=== PATIENT | female | born 1940 | race Caucasian/White ===

== ENCOUNTER → 2016-05-27 | Outpatient (CLI) | payer OTHER ==
[~2016-05-27] MED LIST: ADVIN25050 INH; ALBU0.633 NEB; ALBU1NEB10 INH; ALBUAER19 INH; ALPR-412 PO; AZIT250T PO; B-CO1CAP17 PO; CHOL2000 PO; CRAN1TAB; CYAN100073; DILT180C70 PO; FERR1TAB13 PO; GLC/500 PO; MULT-506 PO; NIAC1TAB3 PO; OMEG10007 PO; OXGN; PRED-301 PO; RISE150T PO; SPRIN/30 INH; TIOTCAP INH; VITA10004; VITA100C4 PO; VNTHFA/IN INH
[2016-05-27 12:11] LABS: BASO % 0.2 %; BASO ABS # 0.02 K/uL (0-0.2); COMPLETE YES; HEMATOCRIT 38.7 % (37-47); IG% 0.3 %; LYMPH % 25.3 %; LYMPH ABS # 2.38 K/uL (1.2-3.4); MEAN CELL VOLUME 92.1 fL (80-100); MEAN CORPUSCULAR HGB CONC 32.6 g/dl (32-36); MEAN PLATELET VOLUME 9.6 fL (7.4-10.4); MONO % 10.1 %; NEUT % 62.1 %; PLATELET COUNT 341 K/uL (130-400)
[2016-05-27 12:28] LABS: ALT/SGPT 20 U/L (12-78); BLOOD UREA NITROGEN 11 mg/dl (7-18); BUN/CREATININE RATIO 14.8 (10-20); CALCIUM 8.8 mg/dl (8.5-10.1); CARBON DIOXIDE 34 mmol/L (21-32); CHLORIDE 98 mmol/L (98-107); CHOLESTEROL 186 mg/dl (0-200); CREATININE 0.73 mg/dl (0.60-1.20); GLUCOSE 151 mg/dl (70-99); POTASSIUM 3.8 mmol/L (3.5-5.1); SODIUM 140 mmol/L (136-145); TRIGLYCERIDES 171 mg/dl (0-150); VERY LOW DENSITY LIPOPROT CALC 34 mg/dl
[2016-05-27 12:39] LABS: ALB/GLOB RATIO 0.7 (0.9-2); ALKALINE PHOSPHATASE 113 U/L (45-117); AST/SGOT 17 U/L (15-37); CHOLESTEROL/HDL RATIO 3.6; HDL CHOLESTEROL 52 mg/dl; LDL CHOLESTEROL CALCULATED 100 mg/dl
[2016-05-27 13:16] LABS: ESTIMATED AVERAGE GLUCOSE 134 mg/dl; HA1C FLAG Normal (Normal)
== END | disposition home or self-care (01) ==
LOC: C.LABBFT 08:41
PROVIDERS: ATTEND Internal Medicine
DX: E11.9 Type 2 diabetes mellitus without complications (principal); J44.9 Chronic obstructive pulmonary disease, unspecified

== ENCOUNTER 2016-12-22 09:38 | Inpatient (IN) | payer OTHER ==
[~2016-12-22] VITALS: Ht 162.6 cm; Wt 78.1 kg
[2016-12-22] VITALS (11 sets, daily range): BP systolic 147–160; BP diastolic 82–92; PULSE 68–132; TEMP 36.8–37; O2SAT 82–96; BMI 27.9
[~2016-12-22 09:38] MED LIST changes: -ALBU0.633 NEB; -AZIT250T PO; -B-CO1CAP17 PO; -CHOL2000 PO; -CRAN1TAB; -CYAN100073; -FERR1TAB13 PO; -OMEG10007 PO; -SPRIN/30 INH; -VITA10004; -VNTHFA/IN INH
[2016-12-22] MEDS ORDERED: SODIUM CHLORIDE 0.9% 1000ML 1,000 ML IV STA (10:04)
[2016-12-22] MEDS ORDERED: SODIUM CHLORIDE 0.9% 1000ML 1,000 ML IV ONE (10:04)
[2016-12-22] MEDS ORDERED: METHYLPREDNISOLONE 125 MG VIAL IV STA (10:07)
[2016-12-22] MEDS ORDERED: ALBUT/IPRATROP 3MG/0.5MG NEB 3 ML VIAL INH ONE (10:15)
[2016-12-22] MEDS ORDERED: OPTIRAY 320 IV PRN (10:15)
[2016-12-22 10:22] LABS: ISTAT CREATININE 0.8 mg/dl (0.6-1.3); ISTAT HEMOGLOBIN 14.6 g/dl (12.0-16.0); ISTAT IONIZED CALCIUM 1.13 mmol/l (1.12-1.32)
[2016-12-22 10:31] LABS: BASO % 0.3 %; BASO ABS # 0.04 K/uL (0-0.2); COMPLETE YES; EOS % 0.5 %; HEMATOCRIT 43.3 % (37-47); IG% 1.4 %; LYMPH % 13.8 %; LYMPH ABS # 2.03 K/uL (1.2-3.4); MEAN CELL VOLUME 94.5 fL (80-100); MEAN CORPUSCULAR HEMOGLOBIN 27.9 pg (25-34); MEAN CORPUSCULAR HGB CONC 29.6 g/dl (32-36); MEAN PLATELET VOLUME 9.2 fL (7.4-10.4); MONO % 6.6 %; NEUT % 77.4 %; PLATELET COUNT 391 K/uL (130-400); RED BLOOD COUNT 4.58 M/uL (4.2-5.4); WHITE BLOOD COUNT 14.73 K/uL (4.8-10.8)
[2016-12-22] MEDS ORDERED: VITA10004 (10:35)
[2016-12-22] MEDS ORDERED: B-CO1CAP17 PO (10:35)
[2016-12-22] MEDS ORDERED: ALBU0.633 NEB (10:35)
[2016-12-22] MEDS ORDERED: SPRIN/30 INH (10:35)
[2016-12-22] MEDS ORDERED: OMEG10007 PO (10:35)
[2016-12-22] MEDS ORDERED: VNTHFA/IN INH (10:35)
[2016-12-22] MEDS ORDERED: AZIT250T PO (10:35)
[2016-12-22] MEDS ORDERED: CHOL2000 PO (10:35)
[2016-12-22] MEDS ORDERED: CYAN100073 (10:35)
[2016-12-22] MEDS ORDERED: FERR1TAB13 PO (10:35)
[2016-12-22] MEDS ORDERED: CRAN1TAB (10:35)
[2016-12-22 10:39] LABS: PARTIAL THROMBOPLASTIN RATIO 0.9
[2016-12-22 10:55] LABS: ALT/SGPT 30 U/L (12-78); BLOOD UREA NITROGEN 10 mg/dl (7-18); BUN/CREATININE RATIO 9.6 (10-20); CALCIUM 9.7 mg/dl (8.5-10.1); CARBON DIOXIDE 35 mmol/L (21-32); CHLORIDE 86 mmol/L (98-107); GLUCOSE 278 mg/dl (70-99); POTASSIUM 3.6 mmol/L (3.5-5.1); SODIUM 133 mmol/L (136-145)
--- NOTE | 2016-12-22 10:58 | DIAGNOSTIC IMAGING REPORT ---
CHEST ONE VIEW PORTABLE CLINICAL HISTORY: Chest pain. Shortness of breath. COMPARISON STUDY: Chest radiograph January 09, 2016. FINDINGS: Interstitial thickening is unchanged. Mild elevation of the left hemidiaphragm is unchanged. No pneumothorax is present. Right lower lung opacities favor atelectasis. Cardiomediastinal silhouette is stable. Left basilar opacity is noted. IMPRESSION: 1. Left basilar opacity which could reflect pleural fluid, atelectasis or consolidation. 2. Interstitial thickening which is likely chronic. 3. Right lower lung opacities which favor atelectasis. Electronically signed by: Cole Buckner M.D. 12/22/2016 10:57 AM Dictated Date/Time: 12/22/2016 10:54 AM
[2016-12-22 11:00] LABS: ALKALINE PHOSPHATASE 128 U/L (45-117); AST/SGOT 37 U/L (15-37); CKMB/CK RATIO 4.3 (0-3.0)
--- NOTE | 2016-12-22 11:41 | DIAGNOSTIC IMAGING REPORT ---
HEAD WITHOUT CONTRAST (CT) CLINICAL HISTORY: 76 years-old Female presenting with fall, trauma. TECHNIQUE: Multidetector CT imaging of the head was performed without the use of intravenous contrast. IV contrast: None. A dose lowering technique was used consistent with the principles of ALARA (as low as reasonably achievable). COMPARISON: None. CT DOSE (mGy.cm): The estimated cumulative dose is 2862.[address] cervical spine, CT chest, CT abdomen and pelvis. FINDINGS: Gang Investigator topogram: Unremarkable. Ventricles and sulci normal in size. Brain parenchyma normal in appearance with preserved youngblood-white differentiation. No mass effect or midline shift. No hemorrhage or acute territorial infarct. No extra-axial fluid collection. Paranasal sinuses and mastoid air cells clear. Calvarium intact. Subgaleal hematoma in the right frontal region and minimal subcutaneous hematoma over the right parietal region. IMPRESSION: 1. No acute intracranial pathology. 2. Subgaleal hematoma in the right frontal region and minimal subcutaneous hematoma over the right parietal region. Electronically signed by: Fam Stauffer M.D. 12/22/2016 11:40 AM Dictated Date/Time: 12/22/2016 11:38 AM
--- NOTE | 2016-12-22 11:45 | DIAGNOSTIC IMAGING REPORT ---
CERVICAL SPINE CT CT DOSE: 2862.34 mGy.cm HISTORY: Neck pain. Fall. eval for trauma TECHNIQUE: Multiaxial CT images of the cervical spine were performed and reformatted in the sagittal and coronal plane without the use of contrast. A dose lowering technique was utilized adhering to the principles of ALARA. COMPARISON: None. FINDINGS: No fractures. No subluxation. Prevertebral soft tissues and the C1-C2 interval are intact. No pneumothorax. Moderate disc space narrowing and endplate osteophytes at C4-C5, C5-C6, and C6-C7. Mild disc space narrowing at C3-C4. Straightening of the cervical spine IMPRESSION: No fractures within the cervical spine. Electronically signed by: Blair Allen M.D. 12/22/2016 11:43 AM Dictated Date/Time: 12/22/2016 11:36 AM
--- NOTE | 2016-12-22 11:51 | DIAGNOSTIC IMAGING REPORT ---
(CHEST FOR PE) ANGIO WITH CLINICAL HISTORY: 76 years-old Female presenting with hypoxia, fall, concern for pulmonary embolus. TECHNIQUE: Multidetector CT angiography of the chest was performed after administration of intravenous contrast. 3-D volumetric and/or maximum intensity projection (MIP) images were subsequently reconstructed for review. IV contrast: 93 mL of Optiray 320. A dose lowering technique was used consistent with the principles of ALARA (as low as reasonably achievable). COMPARISON: 06/20/2013. CT DOSE (mGy.cm): The estimated cumulative dose is [address] cervical spine, CT abdomen and pelvis, and CT head. FINDINGS: Instrument Assembly Supervisor topogram: Unremarkable. Pulmonary vasculature: The study is adequate for assessment of the pulmonary vascular tree. No filling defect within the pulmonary arteries to suggest embolus. Main pulmonary artery is mildly enlarged measuring 3.1 cm in transverse dimension. No flattening of the interventricular septum. No intracardiac intracardiac filling defect. No reflux of contrast into the hepatic veins. Remaining chest: On soft tissue windows, normal thyroid and thoracic inlet. Scattered subcentimeter mediastinal and right hilar lymph nodes. Atherosclerosis of the aorta. Mild coronary artery and aortic valve calcification. Normal heart size. Trace left pleural effusion. No pericardial effusion. Calcified pleural plaques noted on the right. Macronodular appearance of the liver suggesting cirrhosis. Hepatic steatosis suggested. On lung windows, extensive emphysematous changes, asymmetrically more severe in the left lung, similar to prior exam. Complete collapse of the left lower lobe, new from prior. Narrowing of the left lower lobe bronchus without jeanette evidence of an obstructing mass. Paramediastinal dependent consolidation and volume loss in the right lower lobe, with subjacent ossified pleural plaque. Associated multifocal plugging of subsegmental bronchi in the basal segments of the right lower lobe. Extensive layering debris noted in the distal trachea and bilateral mainstem bronchi. Bronchial wall thickening noted. On bone windows, normal osseous structures. IMPRESSION: 1. No evidence of pulmonary embolus. 2. Multifocal plugging of subsegmental bronchi in the right lower lobe with extensive layering debris in the distal trachea and bilateral mainstem bronchi. This is worrisome for aspiration. 3. Left lower lobe collapse without jeanette evidence of an obstructing mass at the level of the left lower lobe bronchus. Further evaluation with bronchoscopy could be considered. 4. Prominent subcentimeter mediastinal and right hilar lymph nodes. These may be reactive. Attention on follow-up. 5. Mediastinal dependent consolidation in the right lower lobe with subjacent calcified pleural plaques. This could suggest atelectasis associated with prior asbestos exposure. 6. Extensive emphysematous changes, asymmetrically more severe in the left lung, similar to prior exam. Electronically signed by: Fam Stauffer M.D. 12/22/2016 11:50 AM Dictated Date/Time: 12/22/2016 11:40 AM
--- NOTE | 2016-12-22 11:57 | DIAGNOSTIC IMAGING REPORT ---
L ANKLE 2 VIEWS CLINICAL HISTORY: LT ANKLE PAIN, FALL COMPARISON STUDY: None. FINDINGS: Trimalleolar fracture/dislocation of the left ankle. This demonstrates up to 1.3 cm of lateral displacement. Diffuse soft tissue swelling. IMPRESSION: Left ankle trimalleolar fracture/dislocation. Electronically signed by: Blair Allen M.D. 12/22/2016 11:56 AM Dictated Date/Time: 12/22/2016 11:55 AM
--- NOTE | 2016-12-22 11:58 | DIAGNOSTIC IMAGING REPORT ---
CT OF THE ABDOMEN AND PELVIS WITH CONTRAST CLINICAL HISTORY: Fall. COMPARISON STUDY: Abdominal ultrasound February 18, 2009. TECHNIQUE: Following IV administration of 93 mL of Optiray-320, axial images of the abdomen and pelvis were obtained from the lung bases to the proximal femurs. Images were reviewed in the axial, sagittal, and coronal planes. IV contrast was administered without complication. A dose lowering technique was utilized adhering to the principles of ALARA. FINDINGS: The chest will be reported separately. Visualized portions of the lower chest demonstrate calcified pleural plaques within the right hemithorax as well as extensive left lower lobe airspace opacity with volume loss and a small left pleural effusion. There is no evidence of traumatic injury to the liver, spleen, adrenal glands, kidneys or pancreas. The liver is cirrhotic. Sensitivity for detection of hypervascular lesions is diminished on this exam but no hepatic lesions are identified on this study. There is a 4 mm right renal calculus. There are no ureteral calculi. A 1.8 cm right renal cyst is noted. Note is made of a 3.4 cm infrarenal abdominal aortic aneurysm without evidence for rupture. There is no lymphadenopathy. Caliber and wall thickness of small and large bowel are normal. A 3.2 cm left adnexal cystic lesion is noted which has a peripheral/dependent calcification. No acute lumbar spine or pelvic fractures identified. There is no free fluid. Calcified upper abdominal lymph nodes are noted. The main, left and right portal veins are patent. IMPRESSION: 1. No acute traumatic findings within the abdomen or pelvis. 2. Cirrhosis. 3. 3.4 cm infrarenal abdominal aortic aneurysm without evidence of rupture. 4. Extensive left lower lobe airspace opacity with volume loss and a small left pleural effusion. Numerous air bronchograms. The findings are better depicted on the chest CT. 5. 3.1 cm left adnexal cystic lesion. This likely reflects an ovarian cyst but is abnormal in a postmenopausal patient and a follow-up nonemergent pelvic ultrasound is recommended to evaluate for complexity. Electronically signed by: Cole Buckner M.D. 12/22/2016 11:57 AM Dictated Date/Time: 12/22/2016 11:48 AM
[2016-12-22] MEDS ORDERED: ALBUTEROL 0.083% NEBU SOLN 3 ML VIAL INH PRN (12:15)
[2016-12-22] MEDS ORDERED: ACETAMINOPHEN 325 MG TAB PO PRN (12:15)
[2016-12-22] MEDS ORDERED: ALUMINUM/MAGNESIUM/SIMETH (MAALOX MAX) 30 ML UDC PO PRN (12:15)
[2016-12-22] MEDS ORDERED: ONDANSETRON INJ 2 MG/ML 2 ML VIAL IV PRN (12:15)
[2016-12-22] MEDS ORDERED: MoRPHine SULFATE 2 MG/ML CARP IV PRN (12:15)
[2016-12-22] MEDS ORDERED: POLYETHYLENE (MIRALAX) 17 GM PACK PO PRN (12:15)
[2016-12-22] MEDS ORDERED: ALPRAZOLAM 0.25 MG TAB PO PRN (12:15)
[2016-12-22] MEDS ORDERED: MAGNESIUM HYDROXIDE SUSP 30 ML UDC PO PRN (12:15)
[2016-12-22] MEDS ORDERED: PIPERACILLIN/TAZOBACTAM 4.5 GM/100ML D5W IV STA (12:34)
--- NOTE | 2016-12-22 12:42 | History and Physical ---
History & Physical Date & Time of Service: Dec 22, 2016 at 12:20 Chief Complaint: Sob,Also Fell Primary Care Physician: Matias Ram M.D. History of Present Illness Source: patient, family 76 y/o F Hx advanced COPD, HTN, HPL, DM, osteoporosis. Pt has developed progressive SOB and weakness over the past 2-3 days. She describes multiple falls and had fallen and hit her head in the bathtub the previous day. She was in bed for the majority of the AM and her granddaughter insisted that she attend the hospital. On route to her car, she fell on her L side and twisted her L ankle. She was markedly hypoxic on arrival to the ER, requiring an NRB to maintain an adequate saturation. A CT chest was obtained which was read as concerning for a RLL pneumonia. Imaging of her ankle revealed a displaced L malleolar fracture. She denies a fever, CP, N/V or dysuria. She was placed on Zithromax and prednisone a few days prior by her PCP. This did not lead to any improvement. Past Medical/Surgical History Medical Problems: 1) HTN 2) HPL 3) DM 2 4) Osteoporosis 5) Advanced COPD 6) YIMI Family History Noncontributory to current complaint Social History Quit smoking several years ago - does not drink - lives with Smoking Status: Former Smoker Marital Status: Housing status: lives with family Occupational Status: retired Immunizations History of Influenza Vaccine: Unknown History of Tetanus Vaccine?: Unknown History of Pneumococcal: Unknown History of Hepatitis B Vaccine: Unknown Allergies Coded Allergies: No Known Allergies (Unverified , 12/22/16) Home Medications Scheduled Albuterol Hfa (Ventolin Hfa), 2-4 PUFFS INH Q6H Albuterol Sulfate (Albuterol Sulfate), 1 VIAL NEB QID Azithromycin (Zithromax), 250 MG PO DAILY Cholecalciferol (Vitamin D3), 1 CAP PO DAILY Diltiazem Hcl (Diltiazem Hcl), 1 CAP PO QAM Ferrous Sulfate (Kp Ferrous Sulfate), 1 TAB PO DAILY Fluticasone Prop/Salmeterol (Advair Diskus 250-50 Mcg/Dose), 1 PUFF INH Q12 Home O2 Therapy (Oxygen), 1 LITER NA DAILY Metformin Hcl (Glucophage), 500 MG PO BID Multivitamin (Multivitamin), 1 TAB PO QAM Niacinamide (Niacin), 1,000 MG PO QAM Prednisone (Prednisone), 5 MG PO QAM Risedronate Sodium (Actonel), 1 TAB PO MONTHLY Tiotropium [place] (Spiriva Handihaler), 1 CAP INH DAILY Vitamin B Cmplx/Vitc/Folic Ac (Nephrocaps), 1 CAP PO DAILY Scheduled PRN Alprazolam (Alprazolam), 0.25 MG PO DAILY PRN for Anxiety Miscellaneous Medications Cranberry (Vaccinium Macrocarp (Cranberry) Cyanocobalamin (B12) Fish Oil ([place]-3), 1 CAP PO Vitamin E (Vitamin E) Review of Systems Constitutional: + weakness, + fatigue, No fever, No chills, No sweats Eyes: No worsening of vision, No eye pain ENT: No hearing loss, No unusual epistaxis, No nasal symptoms Respiratory: + cough, + sputum, + wheezing, + shortness of breath, + dyspnea on exertion, + dyspnea at rest Cardiovascular: No chest pain, No orthopnea, No PND Abdomen: No pain, No nausea, No vomiting Musculoskeletal: + joint pain (L ankle pain) Genitourinary - Female: No dysuria, No urinary frequency, No urinary urgency Neurologic: + weakness, + balance problems, No memory loss, No paralysis Psychiatric: No depression symptoms Endocrine: No fatigue Hematologic / Lymphatic: No abnormal bleeding/bruising Integumentary: No rash Allergic / Immunologic: No environmental allergies Physical Exam Vital Signs Date Time Temp Pulse Resp B/P (MAP) Pulse Ox O2 Delivery O2 Flow Rate FiO2 12/22/16 10:31 96 Nasal Cannula 5.0 12/22/16 10:30 119 27 92 Nasal Cannula 5.0 12/22/16 10:10 61 Nasal Cannula 2.0 12/22/16 10:00 140 12/22/16 09:43 36.8 169 24 109/68 61 Nasal Cannula 2.0 General Appearance: + pertinent finding (Elderly female - labored breathing with lip pursing) Head: normocephalic, + pertinent finding (Bruising at R top of forehead) Eyes: normal inspection ENT: normal ENT inspection, hearing grossly normal, TMs normal Neck: supple, no JVD Respiratory/Chest: chest non-tender, + pertinent finding (Poor b/l air movement - crackles at bases - R>L) Cardiovascular: regular rate, rhythm, no edema, no gallop, + systolic murmur Abdomen/GI: normal bowel sounds, non tender, soft Back: normal inspection, no CVA tenderness Extremities/Musculoskelatal: + pertinent finding (Bruising on extremities - marked bruising and inflammation LLE/ankle) Neurologic/Psych: gas reverser II-XII nml as tested, no motor/sensory deficits, alert, normal mood/affect, normal reflexes, oriented x 3 Skin: normal color, warm/dry, + pertinent finding (Several areas of bruising - no rashes) Diagnostics Laboratory Results Results Past 24 Hours Test 12/22/16 10:00 12/22/16 10:04 12/22/16 10:09 12/22/16 10:12 Range/Units White Blood Count 14.73 4.8-10.8 K/uL Red Blood Count 4.58 4.2-5.4 M/uL Hemoglobin 12.8 12.0-16.0 g/dL Hematocrit 43.3 37-47 % Mean Corpuscular Volume 94.5 80-100 fL Mean Corpuscular Hemoglobin 27.9 25-34 pg Mean Corpuscular Hemoglobin Concent 29.6 32-36 g/dl Platelet Count 391 130-400 K/uL Mean Platelet Volume 9.2 7.4-10.4 fL Neutrophils (%) (Auto) 77.4 % Lymphocytes (%) (Auto) 13.8 % Monocytes (%) (Auto) 6.6 % Eosinophils (%) (Auto) 0.5 % Basophils (%) (Auto) 0.3 % Neutrophils # (Auto) 11.41 1.4-6.5 K/uL Lymphocytes # (Auto) 2.03 1.2-3.4 K/uL Monocytes # (Auto) 0.97 0.11-0.59 K/uL Eosinophils # (Auto) 0.08 0-0.5 K/uL Basophils # (Auto) 0.04 0-0.2 K/uL RDW Standard Deviation 45.9 36.4-46.3 fL RDW Coefficient of Variation 13.3 11.5-14.5 % Immature Granulocyte % (Auto) 1.4 % Immature Granulocyte # (Auto) 0.20 0.00-0.02 K/uL Prothrombin Time 11.0 9.0-12.0 SECONDS Prothromb Time International Ratio 1.0 0.9-1.1 Activated Partial Thromboplast Time 22.6 21.0-31.0 SECONDS Partial Thromboplastin Ratio 0.9 Sodium Level 133 136-145 mmol/L Potassium Level 3.6 3.5-5.1 mmol/L Chloride Level 86 98-107 mmol/L Carbon Dioxide Level 35 21-32 mmol/L Anion Gap 12.0 20.0 16-25 mmol/L Blood Urea Nitrogen 10 7-18 mg/dl Creatinine 1.00 0.60-1.20 mg/dl Estimated GFR () 63.4 Estimated GFR (Non- 54.7 BUN/Creatinine Ratio 9.6 10-20 Random Glucose 278 70-99 mg/dl Calcium Level 9.7 8.5-10.1 mg/dl Total Bilirubin 0.8 0.2-1 mg/dl Direct Bilirubin 0.3 0-0.2 mg/dl Aspartate Amino Transf (AST/SGOT) 37 15-37 U/L Alanine Aminotransferase (ALT/SGPT) 30 12-78 U/L Alkaline Phosphatase 128 45-117 U/L Total Creatine Kinase 49 26-192 U/L Creatine Kinase MB 2.1 0.5-3.6 ng/ml Creatine Kinase MB Ratio 4.3 0-3.0 Total Protein 8.1 6.4-8.2 gm/dl Albumin 3.2 3.4-5.0 gm/dl Lipase 80 73-393 U/L Bedside Hemoglobin 14.6 12.0-16.0 g/dl Bedside Hematocrit 43 37-47 % Bedside Sodium 135 135-144 mEq/L Bedside Potassium 3.6 3.3-5.0 mEq/L Bedside Chloride 83 101-112 mEq/L Bedside Total CO2 37 24-31 mEq/l Bedside Blood Urea Nitrogen 10 7-18 mg/dl Bedside Creatinine 0.8 0.6-1.3 mg/dl Bedside Glucose (other) 280 70-99 mg/dl Bedside Ionized Calcium (Iain) 1.13 1.12-1.32 mmol/l Bedside Troponin I 0.030 0-0.045 ng/ml Microbiology Results 12/22/16 Blood Culture, Received Pending 12/22/16 Blood Culture, Received Pending Diagnostic Radiology CT chest: 1. No evidence of pulmonary embolus. 2. Multifocal plugging of subsegmental bronchi in the right lower lobe with extensive layering debris in the distal trachea and bilateral mainstem bronchi. This is worrisome for aspiration. 3. Left lower lobe collapse without jeanette evidence of an obstructing mass at the level of the left lower lobe bronchus. Further evaluation with bronchoscopy could be considered. 4. Prominent subcentimeter mediastinal and right hilar lymph nodes. These may be reactive. Attention on follow-up. 5. Mediastinal dependent consolidation in the right lower lobe with subjacent calcified pleural plaques. This could suggest atelectasis associated with prior asbestos exposure. 6. Extensive emphysematous changes, asymmetrically more severe in the left lung , similar to prior exam. XR ankle: Trimalleolar fracture/dislocation of the left ankle. This demonstrates up to 1.3 cm of lateral displacement. Diffuse soft tissue swelling. EKG Sinus tach Impression Assessment and Plan 76 y/o F Hx advanced COPD, HTN, HPL, DM, osteoporosis. Pt has developed progressive SOB and weakness over the past 2-3 days. She describes multiple falls and had fallen and hit her head in the bathtub the previous day. She was in bed for the majority of the AM and her granddaughter insisted that she attend the hospital. On route to her car, she fell on her L side and twisted her L ankle. She was markedly hypoxic on arrival to the ER, requiring an NRB to maintain an adequate saturation. A CT chest was obtained which was read as concerning for a RLL pneumonia. Imaging of her ankle revealed a displaced L malleolar fracture. She denies a fever, CP, N/V or dysuria. She was placed on Zithromax and prednisone a few days prior by her PCP. 1) PNM - CT read as concerning for aspiration - she is placed on Unasyn and Zithromax. Sputum cultures ordered. Duonebs, prn albuterol provided. 2) COPD - markedly hypoxic without supplemental 02 - assigned to telemetry and will treat for exacerbation with above antibiotics, IV steroids, nebs - we will consult pulmonology due to the above and additional abnormalities on her CT chest which may indicate a RLL mass. 3) Malleolar fracture - to be evaluated by orthopedics - unclear if will require intervention, however, this should be delayed regardless until acute issues resolve. 4) Frequent falls - likely due to infection, COPD and ensuing weakness - PT/OT prior to DC - may need rehab due to weakness and fracture. 5) DM - placed on SS 6) HTN - cont Diltiazem Full code - SCDs due to head trauma - start Heparin after one day if possible Total time for this admit including review of labs, meds, imaging, EKG - discussion with pt, family, ER attending - 43 min Level of Care Telemetry Resuscitation Status FULL RESUSCITATION VTE Prophylaxis VTE Risk Assessment Done? Y/N: Yes Risk Level: Moderate Given or contraindicated: Unfractionated heparin SQ
--- NOTE | 2016-12-22 13:42 | Orthopedic Consultation ---
Orthopedic Consultation Date of Consultation: Dec 22, 2016. Attending Physician: Dr. Fam Paredes Reason for Consultation: Dislocation / Bimalleolar fracture of Left ankle History of Present Illness This 76 yo F presented to ED this AM for eval of breathing issues. While attempting to ambulate to her vehicle the patient became very weak and fell causing her Left ankle to be fractured/dislocated. At this time the patient's left ankle is externally rotated, edematous and ecchymotic about the medial and lateral malleolus. Pt is unable to move her toes or her ankle. Pt also is SOB with hist of COPD. Patient denies CP, N/V/D/C, LOC, visual disturbances, or pain in any other extremities. Pt does have large contusion to the Right side of her forehead from a previous fall this AM. Pain in ankle is not rated on scale but described as throbbing. Patient also has hist of Pre-Diabetes, but no other PMH. Past surgical procedures: None Past Medical/Surgical History COPD Pre Diabetes Left ankle fracture/dislocation Social History Smoking Status: Former Smoker Smokeless Tobacco Use: No Alcohol Use: none Drug Use: none Marital Status: Housing Status: lives with family Occupation Status: retired Allergies Coded Allergies: No Known Allergies (Unverified , 12/22/16) Home Medications Scheduled Albuterol Hfa (Ventolin Hfa), 2-4 PUFFS INH Q6H Albuterol Sulfate (Albuterol Sulfate), 1 VIAL NEB QID Azithromycin (Zithromax), 250 MG PO DAILY Cholecalciferol (Vitamin D3), 1 CAP PO DAILY Diltiazem Hcl (Diltiazem Hcl), 1 CAP PO QAM Ferrous Sulfate (Kp Ferrous Sulfate), 1 TAB PO DAILY Fluticasone Prop/Salmeterol (Advair Diskus 250-50 Mcg/Dose), 1 PUFF INH Q12 Home O2 Therapy (Oxygen), 1 LITER NA DAILY Metformin Hcl (Glucophage), 500 MG PO BID Multivitamin (Multivitamin), 1 TAB PO QAM Niacinamide (Niacin), 1,000 MG PO QAM Prednisone (Prednisone), 5 MG PO QAM Risedronate Sodium (Actonel), 1 TAB PO MONTHLY Tiotropium Franklin (Spiriva Handihaler), 1 CAP INH DAILY Vitamin B Cmplx/Vitc/Folic Ac (Nephrocaps), 1 CAP PO DAILY Scheduled PRN Alprazolam (Alprazolam), 0.25 MG PO DAILY PRN for Anxiety Miscellaneous Medications Cranberry (Vaccinium Macrocarp (Cranberry) Cyanocobalamin (B12) Fish Oil ([place]-3), 1 CAP PO Vitamin E (Vitamin E) Current Inpatient Medications Current Inpatient Medications Medications (Trade) Dose Ordered Sig/Silvestre Route Start Time Stop Time Status Last Admin Dose Admin Sodium Chloride 1,000 ml @ 150 mls/hr Q6H40M ONCE IV 12/22/16 10:04 12/22/16 16:43 Ioversol (Optiray 320) 100 ml UD PRN IV 12/22/16 10:15 12/26/16 10:14 Alprazolam (Xanax Tab) 0.25 mg DAILY PRN PO 12/22/16 12:15 01/21/17 12:14 UNV Diltiazem HCl (TIAzac CAP) 180 mg QAM PO 12/23/16 09:00 01/22/17 08:59 UNV Fish Oil (Cam[place]-3 (Purified Fish Oil) Cap) 1 gm DAILY PO 12/23/16 09:00 01/22/17 08:59 UNV Salmeterol Xinafoate/ Fluticasone (Advair Diskus 250/50 Inh) 1 puff Q12 INH 12/22/16 21:00 01/21/17 20:59 UNV Vitamin B Complex/ Vit C/Folic Acid (Nephrocaps) 1 cap DAILY PO 12/23/16 09:00 01/22/17 08:59 UNV Non-Formulary Medication (Cholecalciferol (Vitamin D3)) 1 cap DAILY PO 12/23/16 09:00 01/22/17 08:59 UNV Non-Formulary Medication (Ferrous Sulfate (Kp Ferrous Sulfate)) 1 tab DAILY PO 12/23/16 09:00 01/22/17 08:59 UNV Non-Formulary Medication (Niacinamide (Niacin)) 1,000 mg QAM PO 12/23/16 09:00 01/22/17 08:59 UNV Acetaminophen (Tylenol Tab) 650 mg Q4H PRN PO 12/22/16 12:15 01/21/17 12:14 UNV Al Hydrox/Mg Hydrox/Simethicone (Maalox Max Susp) 15 ml Q4H PRN PO 12/22/16 12:15 01/21/17 12:14 UNV Magnesium Hydroxide (Milk Of Magnesia Susp) 30 ml Q12H PRN PO 12/22/16 12:15 01/21/17 12:14 UNV Ondansetron HCl (Zofran Inj) 4 mg Q6H PRN IV 12/22/16 12:15 01/21/17 12:14 UNV Morphine Sulfate (MoRPHine SULFATE INJ) 2 mg Q30M PRN IV 12/22/16 12:15 01/05/17 12:14 UNV Polyethylene (Miralax Powder Packet) 17 gm DAILY PRN PO 12/22/16 12:15 01/21/17 12:14 UNV Albuterol/ Ipratropium (Duoneb) 3 ml Q6H INH 12/22/16 12:15 01/21/17 12:14 UNV Albuterol Sulfate (Ventolin 0.083% 2.5MG/3ML Neb) 2.5 mg Q4H PRN INH 12/22/16 12:15 01/21/17 12:14 UNV Methylprednisolone Sodium Succinate 60 mg/Syringe 0.96 ml @ 1.5 mls/min Q6H IV 12/22/16 12:15 01/21/17 12:14 UNV Ampicillin Sodium/ Sulbactam Sodium 3000 mg/Sodium Chloride 108 ml @ 200 mls/hr Q6H IV 12/22/16 12:15 12/29/16 12:14 UNV Azithromycin 500 mg/Dextrose 255 ml @ 125 mls/hr DAILY IV 12/23/16 09:00 12/30/16 08:59 UNV Review of Systems Constitutional: + weakness, + fatigue Eyes: No worsening of vision, No eye pain, No redness, No discharge, No diplopia, No problem reported Respiratory: + cough, + wheezing, + shortness of breath, + dyspnea on exertion Cardiovascular: No chest pain, No orthopnea, No PND, No edema, No claudication , No palpitations, No problem reported Abdomen: No pain, No nausea, No vomiting, No diarrhea, No constipation, No GI bleeding, No problem reported Musculoskeletal: + joint pain, + swelling, + problem reported (obvious deformity of Left ankle) Neurologic: + weakness, + numbness/tingling, + balance problems Integumentary: + problem reported (edema and ecchymosis about the medial and lateral malleoli of Left ankle) Physical Exam Date Time Temp Pulse Resp B/P (MAP) Pulse Ox O2 Delivery O2 Flow Rate FiO2 12/22/16 12:50 176/96 12/22/16 12:45 124 92 12/22/16 12:40 92 Nasal Cannula 5.0 12/22/16 12:15 121 91 12/22/16 11:45 123 89 12/22/16 10:45 118 27 94 12/22/16 10:31 96 Nasal Cannula 5.0 12/22/16 10:30 119 27 92 Nasal Cannula 5.0 12/22/16 10:10 61 Nasal Cannula 2.0 12/22/16 10:00 140 12/22/16 09:43 36.8 169 24 109/68 61 Nasal Cannula 2.0 General Appearance: WD/WN, + moderate distress, + obese Head: + evidence of trama (Contusion to Right side of forehead) Eyes: normal inspection, PERRL, EOMI ENT: pharynx normal Neck: supple, trachea midline Respiratory/Chest: chest non-tender, + respiratory distress, + decreased breath sounds, + rhonchi, + wheezing Cardiovascular: no gallop, no murmur, normal peripheral pulses, + tachycardia ( with regular rhythm) Abdomen/GI: normal bowel sounds, non tender, soft Extremities/Musculoskelatal: + pertinent finding (obvious dislocation deformtiy of Left ankle due to bimalleolar fracture with ecchymosis and edema about the medial and lateral malleoli. Neuovascular deficit in Lt foot/ankle until fx/disoclation was reduced then pt regained neurologic function of toes/ foot/ankle. ) Neurologic/Psych: alert, oriented x 3, + motor weakness Skin: + pertinent finding (See extremities. Otherwise skin is normal in appearance.) Lymphatic: no adenopathy Laboratory Results Last 24 Hours Test 12/22/16 10:00 12/22/16 10:04 12/22/16 10:09 12/22/16 10:12 White Blood Count 14.73 K/uL Red Blood Count 4.58 M/uL Hemoglobin 12.8 g/dL Hematocrit 43.3 % Mean Corpuscular Volume 94.5 fL Mean Corpuscular Hemoglobin 27.9 pg Mean Corpuscular Hemoglobin Concent 29.6 g/dl Platelet Count 391 K/uL Mean Platelet Volume 9.2 fL Neutrophils (%) (Auto) 77.4 % Lymphocytes (%) (Auto) 13.8 % Monocytes (%) (Auto) 6.6 % Eosinophils (%) (Auto) 0.5 % Basophils (%) (Auto) 0.3 % Neutrophils # (Auto) 11.41 K/uL Lymphocytes # (Auto) 2.03 K/uL Monocytes # (Auto) 0.97 K/uL Eosinophils # (Auto) 0.08 K/uL Basophils # (Auto) 0.04 K/uL RDW Standard Deviation 45.9 fL RDW Coefficient of Variation 13.3 % Immature Granulocyte % (Auto) 1.4 % Immature Granulocyte # (Auto) 0.20 K/uL Prothrombin Time 11.0 SECONDS Prothromb Time International Ratio 1.0 Activated Partial Thromboplast Time 22.6 SECONDS Partial Thromboplastin Ratio 0.9 Sodium Level 133 mmol/L Potassium Level 3.6 mmol/L Chloride Level 86 mmol/L Carbon Dioxide Level 35 mmol/L Anion Gap 12.0 mmol/L 20.0 mmol/L Blood Urea Nitrogen 10 mg/dl Creatinine 1.00 mg/dl Estimated GFR () 63.4 Estimated GFR (Non- 54.7 BUN/Creatinine Ratio 9.6 Random Glucose 278 mg/dl Calcium Level 9.7 mg/dl Total Bilirubin 0.8 mg/dl Direct Bilirubin 0.3 mg/dl Aspartate Amino Transf (AST/SGOT) 37 U/L Alanine Aminotransferase (ALT/SGPT) 30 U/L Alkaline Phosphatase 128 U/L Total Creatine Kinase 49 U/L Creatine Kinase MB 2.1 ng/ml Creatine Kinase MB Ratio 4.3 Total Protein 8.1 gm/dl Albumin 3.2 gm/dl Lipase 80 U/L Bedside Hemoglobin 14.6 g/dl Bedside Hematocrit 43 % Bedside Sodium 135 mEq/L Bedside Potassium 3.6 mEq/L Bedside Chloride 83 mEq/L Bedside Total CO2 37 mEq/l Bedside Blood Urea Nitrogen 10 mg/dl Bedside Creatinine 0.8 mg/dl Bedside Glucose (other) 280 mg/dl Bedside Ionized Calcium (Iain) 1.13 mmol/l Bedside Troponin I 0.030 ng/ml Test 12/22/16 13:15 Assessment & Plan Assessment: Left ankle fracture / dislocation (bimalleolar fracture) Plan: dislocation of Lt ankle easily reduced, then patient was placed into combination posterior splint with U stirrup (sugartong). Dr. Paredes discussed surgical intervention with the patient and her family and informed consent was signed. Due to the patients COPD and possible pneumonia, sugery is not warranted at this time. Pt will be kept in splint and NWB on Left lower extremity. Until she is deemed medically stable to preceed with ORIF of Left ankle bimalleolar fracture. Pt will be admitted by medicine at this time. Additional Copies To Fam Paredes M.D.
[2016-12-22] MEDS ORDERED: ACETAMINOPHEN 500 MG TAB PO PRN (13:45)
[2016-12-22] MEDS ORDERED: HEPARIN SOD 5000 UNIT/0.5 ML CARP SQ SCH (14:00)
--- NOTE | 2016-12-22 14:06 | DIAGNOSTIC IMAGING REPORT ---
LEFT ANKLE 3 VIEWS HISTORY: Left ankle fracture/dislocation. post reduction COMPARISON: Left ankle 12/22/2016. FINDINGS: Overlying cast material obscures fine bony detail. Diffuse soft tissue swelling. Near anatomic alignment status post reduction of the left ankle trimalleolar fracture/dislocation. Mild distraction of the medial malleolus and 4 mm of posterior displacement of the lateral malleolus persist. No radiopaque foreign bodies. IMPRESSION: Improved anatomic alignment status post reduction of the left ankle trimalleolar fracture/dislocation. Electronically signed by: Blair Allen M.D. 12/22/2016 2:05 PM Dictated Date/Time: 12/22/2016 2:04 PM
--- NOTE | 2016-12-22 14:09 | ORTHOPEDIC CONSULTATION ---
DATE OF CONSULTATION: 12/22/2016 HISTORY OF PRESENT ILLNESS: The patient is seen in conjunction with SARAH Riggs for further details regarding this patient. Please refer to his dictation. He and I saw and evaluated this patient together and I am in agreement with plan. Joyce is a 76-year-old female with severe COPD. She has had generalized weakness the past several days. She has fallen several times in the last day or so, most notably on her way to the hospital when she sustained a fracture dislocation of her left ankle. PAST MEDICAL HISTORY: Significant for severe COPD secondary to smoking. She either has type 2 diabetes or metabolic syndrome as she is on metformin. There is no history of bleeding problems, blood clots, infections, MRSA, allergies or metal sensitivities. Her past medical history is noted and reviewed both by interviewing her and reviewing her medical chart. There has not been any history of cancer, coronary artery disease, or strokes. PHYSICAL EXAMINATION: On exam, her left ankle was deformed. The skin is intact. There is extensive bruising medially with a prominent bone. She cannot wiggle her toes and move her ankle. She does have a 1+ dorsalis pedis pulse. Sensation is intact throughout the foot. There is tenderness of the medial and lateral malleoli. Otherwise, the left lower extremity is nontender. She has good movement of her knee and no pain with twisting or logrolling of her hip. Verbal informed consent was obtained and the knee is flexed, the ankle was easily reduced back into an anatomic position. A well-padded posterior splint with a U-stirrup and a mold to resist lateral displacement of the ankle is performed. Post-reduction radiographs are pending. Subsequent to this, her neurovascular function was intact and she was then able to plantarflex and dorsiflex her toes with 5-/5 strength. She has good movement of the cervical spine without complaint. She has good movement of both upper extremities and right lower extremity. She has otherwise no visible bruising or swelling of her extremities, but she does have several hematomas about her face and head from prior falls. DIAGNOSTIC IMAGING: Radiographs of the left ankle demonstrate a bimalleolar fracture with lateral subluxation. There may be a posterior fracture fragment as well. There is diffuse osteopenia present. Results of other evaluations including chest x-ray, head CT, CT scans of the neck, chest and abdomen show that there is consolidation within her lung consistent with possible aspiration pneumonia, possibly a mass. Her CT scan did not show any intracranial process and she does not have any neck fracture. IMPRESSION: Severe chronic obstructive pulmonary disease, osteoporosis, left ankle fracture dislocation. PLAN: Findings are discussed with patient and family. I think right now her significant medical issue is her breathing. She was in respiratory distress when she came to the hospital and this needs further evaluation and treatment prior to any intervention with her ankle. Once she is medically stabilized, we can proceed. I would recommend open reduction and internal fixation of her ankle fracture. Post-reduction radiographs are pending a CT scan might be necessary to evaluate for posterior malleolar fracture, if present. Currently, there is significant bruising medially and I expect there to be some soft tissue issues including swelling, possibly fracture blisters and the damage soft tissue envelope. I would probably recommend that we wait at least a few days if not 1-2 weeks to do surgery. This will depend on her general health as well as the condition of the soft tissues. We will continue to monitor on a regular basis. Informed consent is obtained from the patient and her family. She is to be nonweightbearing. She can be out of bed to chair with her leg elevated. Ice, Tylenol for pain, she did not appear to be in significant discomfort. We will check a vitamin D level. Mechanical devices can be used for DVT prophylaxis and the primary team is started her on some subQ heparin. I did not palpate her posterior tibial pulse.
[2016-12-22] MEDS ORDERED: ALBUT/IPRATROP 3MG/0.5MG NEB 3 ML VIAL INH SCH (15:00)
--- NOTE | 2016-12-22 15:04 | DIAGNOSTIC IMAGING REPORT ---
LEFT ANKLE CT CT DOSE: 240.13 mGy.cm HISTORY: Left ankle fracture TECHNIQUE: Multiaxial CT images of the left ankle were performed and reformatted in the sagittal and coronal plane without the use of contrast. A dose lowering technique was utilized adhering to the principles of ALARA. COMPARISON: The ankle 12/22/2016. FINDINGS: Diffuse soft tissue swelling within the left ankle. Mild thickening of the peroneus longus tendon suggestive of a partial tear/tendinopathy. No dislocation. Redemonstration of the right lower left ankle fracture. The medial malleolus demonstrates 2 mm of distraction. The lateral malleolus demonstrates 4 L of posterior displacement. The posterior malleolus also demonstrates minimal distraction. No dislocation at this time. IMPRESSION: 1. Mildly displaced trimalleolar left ankle fracture as described above. 2. There is also mild thickening of the peroneus longus tendon suggestive of a partial tear/tendinopathy. Electronically signed by: Blair Allen M.D. 12/22/2016 3:03 PM Dictated Date/Time: 12/22/2016 3:00 PM
[2016-12-22 15:34] LABS: ARTERIAL BLD GAS O2 SATURATION 87.5 % (90-95); ARTERIAL BLOOD GAS BASE EXCESS 10.7 mEq/L (-9-1.8); ARTERIAL BLOOD GAS HCO3 42 mmol/L (19-24); ARTERIAL BLOOD GAS PO2 62 mm/Hg (80-95); ARTERIAL BLOOD GAS pH 7.25 (7.35-7.45)
[2016-12-22 15:35] LABS: ALLEN TEST POS (POS); O2 ADMINISTRATION 2 L
[2016-12-22] MEDS: METHYLPREDNISOLONE IV 60 MG in SYRINGE 0 ML IV SCH ×2 (15:48→21:16)
[2016-12-22] MEDS: AZITHROMYCIN IV 500 MG in DEXTROSE 5% 250ML 250 ML IV SCH (15:48)
[2016-12-22] MEDS ORDERED: METOPROLOL TARTRATE 1 MG/ML VIAL IV ONE (16:37)
--- NOTE | 2016-12-22 16:37 | EMERGENCY ROOM VISIT NOTE ---
History Report prepared by Luis: Ke Ng Under the Supervision of: Dr. Jeffrey Nelson M.D. First contact with patient: 09:55 Chief Complaint: SHORTNESS OF BREATH Stated Complaint: SOB,ALSO FELL Nursing Triage Summary: hx of copd. breathing difficulty for the past several days. placed on zithromax yesterday. jericho reports she hit head last night after a fall while attempting to go to the bathroom. also when attempting to get into the car to come here fell and has pain in left ankle. brusing noted to ankle. History of Present Illness The patient is a 76 year old female who presents to the Emergency Room with complaints of shortness of breath frequent falls and left ankle pain. This patient has been feeling very short of breath over the last couple days . she does have a history of severe COPD she's fallen several times because she gets very short of breath when she gets up. She injured her left ankle and she also hit her head. She has a trauma the chest abdomen or pelvis. She has not been confused. Denies bowel or bladder problems. No abdominal pain or pleurisy. Denies headache. No focal numbness or weakness. Review of Systems See HPI for pertinent positives & negatives. A total of 10 systems reviewed and were otherwise negative. Past Medical & Surgical Medical Problems: (1) COPD exacerbation (2) Falls frequently (3) HTN (hypertension) Family History No pertinent family history stated. Social History Smoking Status: Former Smoker Marital Status: Housing Status: lives with family Occupation Status: retired Current/Historical Medications Scheduled Albuterol Hfa (Ventolin Hfa), 2-4 PUFFS INH Q6H Albuterol Sulfate (Albuterol Sulfate), 1 VIAL NEB QID Azithromycin (Zithromax), 250 MG PO DAILY Cholecalciferol (Vitamin D3), 1 CAP PO DAILY Diltiazem Hcl (Diltiazem Hcl), 1 CAP PO QAM Ferrous Sulfate (Kp Ferrous Sulfate), 1 TAB PO DAILY Fluticasone Prop/Salmeterol (Advair Diskus 250-50 Mcg/Dose), 1 PUFF INH Q12 Home O2 Therapy (Oxygen), 1 LITER NA DAILY Metformin Hcl (Glucophage), 500 MG PO BID Multivitamin (Multivitamin), 1 TAB PO QAM Niacinamide (Niacin), 1,000 MG PO QAM Prednisone (Prednisone), 5 MG PO QAM Risedronate Sodium (Actonel), 1 TAB PO MONTHLY Tiotropium Penn (Spiriva Handihaler), 1 CAP INH DAILY Vitamin B Cmplx/Vitc/Folic Ac (Nephrocaps), 1 CAP PO DAILY Scheduled PRN Alprazolam (Alprazolam), 0.25 MG PO DAILY PRN for Anxiety Miscellaneous Medications Cranberry (Vaccinium Macrocarp (Cranberry) Cyanocobalamin (B12) Fish Oil ([place]-3), 1 CAP PO Vitamin E (Vitamin E) Allergies Coded Allergies: No Known Allergies (Unverified , 12/22/16) Physical Exam Vital Signs Date Time Temp Pulse Resp B/P (MAP) Pulse Ox O2 Delivery O2 Flow Rate FiO2 12/22/16 12:15 121 91 12/22/16 11:45 123 89 12/22/16 10:45 118 27 94 12/22/16 10:31 96 Nasal Cannula 5.0 12/22/16 10:30 119 27 92 Nasal Cannula 5.0 12/22/16 10:10 61 Nasal Cannula 2.0 12/22/16 10:00 140 12/22/16 09:43 36.8 169 24 109/68 61 Nasal Cannula 2.0 Physical Exam General: Well developed well nourished older female who is alert and oriented 3 and appears mildly tachypnea but otherwise in no acute distress, breathing comfortably on supplemental oxygen. Normal speech HEENT: Normal cephalic atraumatic with exception of a large hematoma in the right scalp. Pupils are equal round and reactive to light. Extraocular movements are intact. Oropharynx is pink with moist mucous membranes. No swelling of the mouth lips or tongue. Neck: Supple with a midline trachea. No meningeal signs or stiffness, no JVD or bruits. No Stridor. Chest: Diminished to auscultation bilaterally. No wheezes or rhonchi. No increased work of breathing. Heart: Regular rate and rhythm without murmurs or gallops. Abdomen: Soft nontender, nondistended without rebound guarding or rigidity. Extremities: No cyanosis clubbing or edema. No calf tenderness or assymetry. There is a deformity to the left ankle but good pulses and intact skin Spine/Back. Non tender to palpation. No CVA tenderness Skin: Good turgor without rashes. Neurologic exam: Cranial nerves two through 12 are intact. Motor and sensation are intact and symmetrical throughout. Medical Decision & Procedures ER Provider Diagnostic Interpretation: Radiology results as stated below per my review and radiologist interpretation: CHEST ONE VIEW PORTABLE FINDINGS: Interstitial thickening is unchanged. Mild elevation of the left hemidiaphragm is unchanged. No pneumothorax is present. Right lower lung opacities favor atelectasis. Cardiomediastinal silhouette is stable. Left basilar opacity is noted. IMPRESSION: 1. Left basilar opacity which could reflect pleural fluid, atelectasis or consolidation. 2. Interstitial thickening which is likely chronic. 3. Right lower lung opacities which favor atelectasis. Electronically signed by: Cole Buckner M.D. 12/22/2016 10:57 AM L ANKLE 2 VIEWS FINDINGS: Trimalleolar fracture/dislocation of the left ankle. This demonstrates up to 1.3 cm of lateral displacement. Diffuse soft tissue swelling. IMPRESSION: Left ankle trimalleolar fracture/dislocation. Electronically signed by: Blair Allen M.D. 12/22/2016 11:56 AM HEAD WITHOUT CONTRAST (CT) FINDINGS: Front Office Assistant topogram: Unremarkable. Ventricles and sulci normal in size. Brain parenchyma normal in appearance with preserved youngblood-white differentiation. No mass effect or midline shift. No hemorrhage or acute territorial infarct. No extra-axial fluid collection. Paranasal sinuses and mastoid air cells clear. Calvarium intact. Subgaleal hematoma in the right frontal region and minimal subcutaneous hematoma over the right parietal region. IMPRESSION: 1. No acute intracranial pathology. 2. Subgaleal hematoma in the right frontal region and minimal subcutaneous hematoma over the right parietal region. Electronically signed by: Fam Stauffer M.D. 12/22/2016 11:40 AM (CHEST FOR PE) ANGIO WITH FINDINGS: Front Office Assistant topogram: Unremarkable. Pulmonary vasculature: The study is adequate for assessment of the pulmonary vascular tree. No filling defect within the pulmonary arteries to suggest embolus. Main pulmonary artery is mildly enlarged measuring 3.1 cm in transverse dimension. No flattening of the interventricular septum. No intracardiac intracardiac filling defect. No reflux of contrast into the hepatic veins. Remaining chest: On soft tissue windows, normal thyroid and thoracic inlet. Scattered subcentimeter mediastinal and right hilar lymph nodes. Atherosclerosis of the aorta. Mild coronary artery and aortic valve calcification. Normal heart size. Trace left pleural effusion. No pericardial effusion. Calcified pleural plaques noted on the right. Macronodular appearance of the liver suggesting cirrhosis. Hepatic steatosis suggested. On lung windows, extensive emphysematous changes, asymmetrically more severe in the left lung, similar to prior exam. Complete collapse of the left lower lobe, new from prior. Narrowing of the left lower lobe bronchus without jeanette evidence of an obstructing mass. Paramediastinal dependent consolidation and volume loss in the right lower lobe, with subjacent ossified pleural plaque. Associated multifocal plugging of subsegmental bronchi in the basal segments of the right lower lobe. Extensive layering debris noted in the distal trachea and bilateral mainstem bronchi. Bronchial wall thickening noted. On bone windows, normal osseous structures. IMPRESSION: 1. No evidence of pulmonary embolus. 2. Multifocal plugging of subsegmental bronchi in the right lower lobe with extensive layering debris in the distal trachea and bilateral mainstem bronchi. This is worrisome for aspiration. 3. Left lower lobe collapse without jeanette evidence of an obstructing mass at the level of the left lower lobe bronchus. Further evaluation with bronchoscopy could be considered. 4. Prominent subcentimeter mediastinal and right hilar lymph nodes. These may be reactive. Attention on follow-up. 5. Mediastinal dependent consolidation in the right lower lobe with subjacent calcified pleural plaques. This could suggest atelectasis associated with prior asbestos exposure. 6. Extensive emphysematous changes, asymmetrically more severe in the left lung, similar to prior exam. Electronically signed by: Fam Stauffer M.D. 12/22/2016 11:[address] FINDINGS: No fractures. No subluxation. Prevertebral soft tissues and the C1-C2 interval are intact. No pneumothorax. Moderate disc space narrowing and endplate osteophytes at C4-C5, C5-C6, and C6-C7. Mild disc space narrowing at C3-C4. Straightening of the cervical spine IMPRESSION: No fractures within the cervical spine. Electronically signed by: Blair Allen M.D. 12/22/2016 11:[address] OF THE ABDOMEN AND PELVIS WITH CONTRAST TECHNIQUE: Following IV administration of 93 mL of [id number]-320, axial images of the abdomen and pelvis were obtained from the lung bases to the proximal femurs. Images were reviewed in the axial, sagittal, and coronal planes. IV contrast was administered without complication. A dose lowering technique was utilized adhering to the principles of ALARA. FINDINGS: The chest will be reported separately. Visualized portions of the lower chest demonstrate calcified pleural plaques within the right hemithorax as well as extensive left lower lobe airspace opacity with volume loss and a small left pleural effusion. There is no evidence of traumatic injury to the liver, spleen, adrenal glands, kidneys or pancreas. The liver is cirrhotic. Sensitivity for detection of hypervascular lesions is diminished on this exam but no hepatic lesions are identified on this study. There is a 4 mm right renal calculus. There are no ureteral calculi. A 1.8 cm right renal cyst is noted. Note is made of a 3.4 cm infrarenal abdominal aortic aneurysm without evidence for rupture. There is no lymphadenopathy. Caliber and wall thickness of small and large bowel are normal. A 3.2 cm left adnexal cystic lesion is noted which has a peripheral/dependent calcification. No acute lumbar spine or pelvic fractures identified. There is no free fluid. Calcified upper abdominal lymph nodes are noted. The main, left and right portal veins are patent. IMPRESSION: 1. No acute traumatic findings within the abdomen or pelvis. 2. Cirrhosis. 3. 3.4 cm infrarenal abdominal aortic aneurysm without evidence of rupture. 4. Extensive left lower lobe airspace opacity with volume loss and a small left pleural effusion. Numerous air bronchograms. The findings are better depicted on the chest CT. 5. 3.1 cm left adnexal cystic lesion. This likely reflects an ovarian cyst but is abnormal in a postmenopausal patient and a follow-up nonemergent pelvic ultrasound is recommended to evaluate for complexity. Electronically signed by: Cole Buckner M.D. 12/22/2016 11:57 AM Laboratory Results 12/22/16 10:00 Red Blood Count 4.58, Mean Corpuscular Volume 94.5, Mean Corpuscular Hemoglobin 27.9, Mean Corpuscular Hemoglobin Concent 29.6, Mean Platelet Volume 9.2, Neutrophils (%) (Auto) 77.4, Lymphocytes (%) (Auto) 13.8, Monocytes (%) (Auto) 6.6, Eosinophils (%) (Auto) 0.5, Basophils (%) (Auto) 0.3, Neutrophils # (Auto) 11.41, Lymphocytes # (Auto) 2.03, Monocytes # (Auto) 0.97, Eosinophils # (Auto) 0.08, Basophils # (Auto) 0.04 12/22/16 10:00 Test 12/22/16 10:00 12/22/16 10:04 12/22/16 10:09 12/22/16 10:12 White Blood Count 14.73 K/uL (4.8-10.8) Red Blood Count 4.58 M/uL (4.2-5.4) Hemoglobin 12.8 g/dL (12.0-16.0) Hematocrit 43.3 % (37-47) Mean Corpuscular Volume 94.5 fL (80-100) Mean Corpuscular Hemoglobin 27.9 pg (25-34) Mean Corpuscular Hemoglobin Concent 29.6 g/dl (32-36) Platelet Count 391 K/uL (130-400) Mean Platelet Volume 9.2 fL (7.4-10.4) Neutrophils (%) (Auto) 77.4 % Lymphocytes (%) (Auto) 13.8 % Monocytes (%) (Auto) 6.6 % Eosinophils (%) (Auto) 0.5 % Basophils (%) (Auto) 0.3 % Neutrophils # (Auto) 11.41 K/uL (1.4-6.5) Lymphocytes # (Auto) 2.03 K/uL (1.2-3.4) Monocytes # (Auto) 0.97 K/uL (0.11-0.59) Eosinophils # (Auto) 0.08 K/uL (0-0.5) Basophils # (Auto) 0.04 K/uL (0-0.2) RDW Standard Deviation 45.9 fL (36.4-46.3) RDW Coefficient of Variation 13.3 % (11.5-14.5) Immature Granulocyte % (Auto) 1.4 % Immature Granulocyte # (Auto) 0.20 K/uL (0.00-0.02) Prothrombin Time 11.0 SECONDS (9.0-12.0) Prothromb Time International Ratio 1.0 (0.9-1.1) Activated Partial Thromboplast Time 22.6 SECONDS (21.0-31.0) Partial Thromboplastin Ratio 0.9 Estimated GFR () 63.4 Estimated GFR (Non- 54.7 BUN/Creatinine Ratio 9.6 (10-20) Calcium Level 9.7 mg/dl (8.5-10.1) Total Bilirubin 0.8 mg/dl (0.2-1) Direct Bilirubin 0.3 mg/dl (0-0.2) Aspartate Amino Transf (AST/SGOT) 37 U/L (15-37) Alanine Aminotransferase (ALT/SGPT) 30 U/L (12-78) Alkaline Phosphatase 128 U/L (45-117) Total Creatine Kinase 49 U/L (26-192) Creatine Kinase MB 2.1 ng/ml (0.5-3.6) Total Protein 8.1 gm/dl (6.4-8.2) Albumin 3.2 gm/dl (3.4-5.0) Lipase 80 U/L (73-393) 25-Hydroxy Vitamin D Total 44.8 ng/ml (30-100) Creatine Kinase MB Ratio (0-3.0) Bedside Hemoglobin 14.6 g/dl (12.0-16.0) Bedside Hematocrit 43 % (37-47) Bedside Sodium 135 mEq/L (135-144) Bedside Potassium 3.6 mEq/L (3.3-5.0) Bedside Chloride 83 mEq/L (101-112) Bedside Total CO2 37 mEq/l (24-31) Anion Gap 20.0 mmol/L (16-25) Bedside Blood Urea Nitrogen 10 mg/dl (7-18) Bedside Creatinine 0.8 mg/dl (0.6-1.3) Bedside Glucose (other) 280 mg/dl (70-99) Bedside Ionized Calcium (Iain) 1.13 mmol/l (1.12-1.32) Bedside Troponin I 0.030 ng/ml (0-0.045) Laboratory studies as stated above per my review. Medications Administered Medications (Trade) Dose Ordered Sig/Silvestre Route Start Time Stop Time Status Last Admin Dose Admin Sodium Chloride 1,000 ml @ 999 mls/hr Q1H1M STAT IV 12/22/16 10:04 12/22/16 11:04 DC 12/22/16 10:24 999 MLS/HR Albuterol/ Ipratropium (Duoneb) 12 ml ONE ONCE INH 12/22/16 10:15 12/22/16 10:16 DC 10/4/17 10:24 12 ML Methylprednisolone Sodium Succinate (Solu-Medrol IV) 125 mg NOW STAT IV 12/22/16 10:07 12/22/16 10:10 DC 12/22/16 10:24 125 MG ED Course 0950: Past medical records reviewed. The patient was evaluated in room C9, and a complete history and physical examination were performed. 1004: Ordered Sodium Chloride 1000 ml @ 150 mls/hr IV, Sodium Chloride 1000 ml @ 999 mls/hr IV, Solu-Medrol 125 mg IV. 1015: Ordered DuoNeb 12 mL INH. 1210: Upon reevaluation, the patient is resting comfortably. I discussed the results and treatment plan with the patient. She verbalized agreement of the treatment plan. The patient will be evaluated for further management. Medical Decision Differentials include, but are not limited to trauma, sepsis, COPD exacerbation , respiratory failure, pneumonia, electrolyte or metabolic abnormality, orthopedic injuries The nurse came and got me to see her as when she presented triage she was 61% oxygen saturation. When I saw her, she was also tachycardic. Given her COPD, she was given hour-long DuoNeb. She was also given Solu-Medrol 125 mg IV. Her lungs have diminished breath sounds bilaterally. She does have a large hematoma in the right scalp. Given her history of trauma, I did a CAT scan of her head neck chest abdomen and pelvis. The chest CT was PE protocol is no evidence of PE she has a somewhat lung changes and possibly some aspiration. She was cover with antibiotics was given 4.5 g IV. Her x-ray of her foot proved to have a trimalleolar fracture with some dislocation. The skin is intact. Pulses are intact. I consult Dr. Worthy and he has reduced this and the patient was splinted she will likely need operative care when her medical conditions have been stabilized. She seemed to do much better after these interventions. O2 sat with some supplemental oxygen is in the 90s. I was careful not to give her too much oxygen as is worried that she could be a CO2 retainer potentially. She has no significant electrode or metabolic abnormalities. She was doing much better will be admitted for further treatment and evaluation. I have discussed this with the [facility] team. Head Trauma GCS Score: 15 Medication Reconcilliation Current Medication List: was personally reviewed by me Blood Pressure Screening Patient's blood pressure: Elevated blood pressure Blood pressure disposition: Elevated BP felt to be situational Consults Time Called: 1200 Consulting Physician: Dr. Fernando -[facility] [place] Returned Call: [phone] Discussed the patient's case. The patient will be evaluated for further management. Additional Consults: Time Called: 1225 Consulted Physician: Dr. Paredes -Orthopedics Returned Call: [phone] Additional Comments: Discussed the patient's case. Dr. Paredes will come evaluate the patient. Impression Primary Impression: Chronic obstructive pulmonary disease Additional Impressions: Hypoxemia Pneumonia Concussion Ankle fracture, left Critical Care Due to the patient's severe back hypoxemia and unstable vital signs need for multiple interventions and consultations and reassessment and multiple meds, I have personally spent greater than 45 minutes of critical care time in the direct management of this patient. This includes bedside care, interpretation of diagnostic studies, and testing, discussion with consultants, patient, and family members, and other required patient management activities. This 45 minutes is in excess of all separately billable procedures. Scribe Attestation The scribe's documentation has been prepared under my direction and personally reviewed by me in its entirety. I confirm that the note above accurately reflects all work, treatment, procedures, and medical decision making performed by me. Departure Information Dispostion Being Evaluated By Hospitalist Referrals Matias Ram M.D. (PCP) Patient Instructions My [facility] Problem Qualifiers
[2016-12-22] MEDS ORDERED: METOPROLOL TARTRATE 1 MG/ML VIAL ONE (16:40)
[2016-12-22] MEDS: LEVALBUTEROL 0.63MG/3 ML NEB INH SCH ×2 (16:49→19:48)
[2016-12-22] MEDS: IPRATROPIUM BROMIDE NEB SOLN 0.02% 2.5 ML VIAL INH SCH ×2 (16:49→19:48)
[2016-12-22] MEDS: AMPICILLIN/SULBACTAM SOD INJ 3,000 MG in SODIUM CHLORIDE 0.9% 100ML 100 ML IV SCH (18:05)
[2016-12-22] MEDS: POTASSIUM CHLORIDE INJ 40 MEQ in SODIUM CHLORIDE 0.9% 1000ML 1,000 ML IV SCH (18:41)
[2016-12-22 20:00] LABS: ALLEN TEST POS (POS); ARTERIAL BLD GAS O2 SATURATION 92.6 % (90-95); ARTERIAL BLOOD GAS HCO3 42 mmol/L (19-24); ARTERIAL BLOOD GAS PO2 70 mm/Hg (80-95); ARTERIAL BLOOD GAS pH 7.35 (7.35-7.45); O2 ADMINISTRATION 15 L BIPAP
[2016-12-22] MEDS ORDERED: LEVALBUTEROL/IPRATROPIUM NEB INH SCH (21:00)
[2016-12-22] MEDS: FLUTICASONE/SALMETEROL 250/50 (ADVAIR) 14 PUFF/1 INHALER INH SCH (21:00)
[2016-12-23] VITALS (15 sets, daily range): BP systolic 149–180; BP diastolic 82–98; PULSE 98–112; TEMP 36.4–37; O2SAT 91–97
[2016-12-23] MEDS: AMPICILLIN/SULBACTAM SOD INJ 3,000 MG in SODIUM CHLORIDE 0.9% 100ML 100 ML IV SCH ×5 (00:23→23:59)
[2016-12-23] MEDS: POTASSIUM CHLORIDE INJ 40 MEQ in SODIUM CHLORIDE 0.9% 1000ML 1,000 ML IV SCH ×2 (00:57→09:07)
[2016-12-23] MEDS: IPRATROPIUM BROMIDE NEB SOLN 0.02% 2.5 ML VIAL INH SCH ×4 (02:15→19:37)
[2016-12-23] MEDS: LEVALBUTEROL 0.63MG/3 ML NEB INH SCH ×4 (02:15→19:37)
[2016-12-23] MEDS: METHYLPREDNISOLONE IV 60 MG in SYRINGE 0 ML IV SCH ×2 (04:19→09:01)
--- NOTE | 2016-12-23 07:53 | PULMONARY CONSULTATION ---
DATE OF CONSULTATION: 12/22/2016 TIME: 4:45 p.m. HISTORY OF PRESENT ILLNESS: The patient was seen in room 237. She is a 76-year-old female who suffered a fall sometime last evening. The details are somewhat sketchy. She was at home and apparently fell in the bathroom. Her did not hear this fall. He apparently was in another room. She then fell again during the nighttime and she states she was on the commode and she thinks she fell asleep. She fell and hit her head somewhere on the tub. The patient is very sketchy about details. This morning, her family felt that she needed to go to the Emergency Room because of these falls and weakness. She apparently has been feeling weaker than normal for a couple of weeks. She had some increased cough last week. She called her family doctor who apparently did not get back to her. She then called Dr. Cole's office. Ultimately, someone ordered some azithromycin for her. It is not clear if she had actually taken any of the medicine yet. The patient was getting ready to go to the Emergency Room when she fell again at home in the driveway, I believe. She suffered a fracture of the left ankle. In the Emergency Room, she was significantly hypoxic. She was put on a nonrebreather mask. Her saturations initially were 61% on 2 liters of oxygen. The patient is somewhat confused and somewhat lethargic. Her granddaughter was with her during this evaluation. Her came into the room during the evaluation. The patient initially could not tell me how old she was. Subsequently, she did answer. She initially could not tell me what her date of was but she ultimately came up with that as well. She did know the year. The patient had a CAT scan of the chest done as part of her Emergency Room evaluation. The CAT scan showed no evidence of pulmonary embolism. She did have calcified pleural plaques on the right of the chest. She had some definite narrowing of the left lower lobe bronchus with what appears to be a complete collapse of the left lower lobe. There was a suggestion of some mucus plugging in the basal segments of the right lower lobe. There appeared to be mucus or debris in the distal trachea and main bronchi as well. The patient related that last week she had been coughing up some yellow and green sputum and it subsequently turned to white today. The CAT scan showed extensive emphysematous changes, especially in the left. Cirrhosis of the liver was suggested. The patient has a longstanding history of severe COPD. She was a long-term smoker. She quit smoking about 10 years ago. It is believed she smoked about 1 pack per day between 40 and 45 years. The patient denies any significant alcohol use. She is diagnosed with sleep apnea. She wears BiPAP 15/6 at night. She states she wears it regularly. The patient was hospitalized in 2003 with respiratory failure. It does not appear that she has been hospitalized since then. She last had pulmonary function test done in 12/2008 and she had severe obstructive lung disease at that time. Her FEV1 at that time was 0.75 liters which was only 31% of predicted. Her diffusion was only 32% of predicted. The patient has noticed a severe decrease in her energy for about a month. She has been much more tired doing laundry and other daily chores. Her appetite has been decreased. She did not eat much yesterday. She denies any vomiting at all that she is aware of. She did have a CAT scan of the abdomen done today. This showed a left adnexal cystic lesion, likely representing an ovarian cyst. 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 She did have a CT of the head done that showed no acute pathology. She did have a small hematoma in the right frontal area and right parietal area. Cervical spine CT showed no fracture. PAST MEDICAL HISTORY: 1. Hypertension. 2. Diabetes. 3. Osteoporosis. 4. COPD as noted. 5. Sleep apnea as noted. 6. Hyperlipidemia. SOCIAL HISTORY: As noted previously. ALLERGIES: No known allergies. MEDICATIONS AT HOME: 1. Ventolin HFA 2-4 puffs q. 6 p.r.n. 2. Nebs with albuterol q.i.d. 3. Zithromax. 4. Vitamin D3 one daily. 5. Diltiazem 1 daily. 6. Ferrous sulfate 1 daily. 7. Advair 250/50 one puff b.i.d. 8. O2 one liter continuous. 9. Metformin 500 mg b.i.d. 10. Niacin 1000 mg daily. 11. Prednisone 5 mg daily. 12. Actonel monthly. 13. Spiriva 1 daily. 14. Alprazolam 0.25 p.r.n. REVIEW OF SYSTEMS: Negative except for the above-mentioned complaints. PHYSICAL EXAMINATION: GENERAL: The patient is a 76-year-old female who is mildly confused. She is easily arousable. She did follow commands. She seemingly is able to move all extremities. She became more oriented as our examination progressed. VITAL SIGNS: Temperature is 36.8. HEENT: Eye exam shows some ecchymosis in the area of the supraorbital region. She has some ecchymosis on the anterior forehead. Mouth exam reveals the mucous membranes to be very dry. NECK: Palpation of the neck reveals no lymphadenopathy. HEART: Rate is elevated at 126 per minute. The rhythm is regular. Blood pressure is 151/88. LUNGS: Breath sounds are diffusely diminished but especially so on the left. There is very poor airflow on the left side. Respiratory rate is 32 breaths per minute. She did not look labored with that. No active wheezing is heard. ABDOMEN: Soft. Bowel sounds are present. There is some fullness in the right upper quadrant, cannot exclude some degree of hepatomegaly. There is no tenderness. EXTREMITIES: Show that the left lower extremity is in immobilizer. Right lower extremity shows no edema. SKIN: The abdominal wall shows markedly dry skin. She states this is normal for her. LABORATORY DATA: Arterial blood gas done at 3:23 p.m. today showed a pH severely decreased to 7.25 with a pCO2 of 98 and a pO2 of 62 done on 2 liters. Electrolytes show sodium 135, potassium 3.6, chloride 83, bicarbonate 37. Blood sugar was 280. Troponin was 0.03. BUN was 10 with a creatinine of 1. AST was 37 and ALT was 30. Alkaline phosphatase was elevated at 128. Total protein was 8.1. Albumin was low at 3.2. White count is 14.73, hemoglobin 12.8, platelets 391,000. INR is 1. PTT is 22.6. IMPRESSION: 1. Acute respiratory failure with hypoxia and hypercarbia. 2. Severe chronic obstructive pulmonary disease -- mainly emphysema. 3. Atelectasis, left lower lobe. 4. Calcified pleural plaques -- questionable asbestos exposure. COMMENTS AND RECOMMENDATIONS: I am putting the patient on BiPAP now. For now, we will set her on 15/6 as she uses at home. We will check a blood gas in about 2-1/2 hours. If she is no better, she needs to be transferred to ICU. The patient ideally should have bronchoscopy but she is not a candidate at present due to her severe respiratory status. She would have to be done on mechanical ventilation. We will try to avoid that if possible. The patient is on ampicillin and sulbactam. She is on methylprednisolone 60 mg IV q. 6. She is on azithromycin 500 mg q. 24 hours. Ideally, she should not have sedatives or hypnotics; however, decision may need to be made in light of her pain she may be having. I believe the alprazolam should be discontinued. I am changing the nebulizer treatments to Xopenex 0.63 plus ipratropium. This change was made because of her tachycardia. I have instructed nursing to keep her saturations between 88% and 92% in order to try and stimulate ventilation. Thank you very much for asking me to assist in her care.
[2016-12-23] MEDS ORDERED: GLUCOSE 40% GEL 15 GM TUBE PO PRN (08:00)
[2016-12-23] MEDS ORDERED: GLUCOSE 10 TABS/TUBE PO PRN (08:00)
[2016-12-23] MEDS ORDERED: DEXTROSE 50% 50 ML SYR IV PRN (08:00)
[2016-12-23] MEDS ORDERED: GLUCAGON FOR INJ 1 MG VIAL SQ PRN (08:00)
[2016-12-23 08:15] LABS: ARTERIAL BLD GAS O2 SATURATION 93.1 % (90-95); ARTERIAL BLOOD GAS BASE EXCESS 11.4 mEq/L (-9-1.8); ARTERIAL BLOOD GAS HCO3 38 mmol/L (19-24); ARTERIAL BLOOD GAS PO2 70 mm/Hg (80-95); ARTERIAL BLOOD GAS pH 7.42 (7.35-7.45)
[2016-12-23 08:16] LABS: ALLEN TEST POS (POS); O2 ADMINISTRATION 4 L
[2016-12-23 08:22] LABS: HEMATOCRIT 36.9 % (37-47); MEAN CELL VOLUME 92.7 fL (80-100); MEAN CORPUSCULAR HEMOGLOBIN 29.1 pg (25-34); MEAN CORPUSCULAR HGB CONC 31.4 g/dl (32-36); PLATELET COUNT 288 K/uL (130-400); RED BLOOD COUNT 3.98 M/uL (4.2-5.4); WHITE BLOOD COUNT 14.56 K/uL (4.8-10.8)
[2016-12-23] MEDS: FLUTICASONE/SALMETEROL 250/50 (ADVAIR) 14 PUFF/1 INHALER INH SCH ×3 (08:53→21:30)
[2016-12-23 08:54] LABS: BUN/CREATININE RATIO 19.7 (10-20); CALCIUM 8.9 mg/dl (8.5-10.1); CREATININE 0.77 mg/dl (0.60-1.20); MAGNESIUM 1.6 mg/dl (1.8-2.4); POTASSIUM 4.8 mmol/L (3.5-5.1)
[2016-12-23] MEDS: FERROUS SULFATE 325 MG TAB PO SCH (08:54)
[2016-12-23] MEDS: NIACIN 500 MG TAB IMMEDIATE RELEASE PO SCH (08:55)
[2016-12-23] MEDS: NEPHROCAPS PO SCH (08:55)
[2016-12-23] MEDS: OMEGA-3 (PURIFIED FISH OIL) 1 GM CAP PO SCH (08:56)
[2016-12-23] MEDS: CHOLECALCIFEROL 1000 INTER.UNIT TAB PO SCH (08:57)
[2016-12-23] MEDS: INSULIN GLARGINE SOLOSTAR 100 UNITS/ML 3 ML PEN SC SCH ×2 (09:00→21:27)
[2016-12-23] MEDS ORDERED: DILTIAZEM HCL (TIAzac) 180 MG CAPCR PO SCH (09:00)
--- NOTE | 2016-12-23 09:14 | Clinical Documentation Query ---
CLINICAL DOCUMENTATION QUERY 76-y/o female who present after fall in acute hypoxic and hypercarbic respiratory failure due to underlying pneumonia. In your clinical opinion is this patient being managed for: (x ) COPD exacerbation in setting of pneumonia causing respiratory failure. ( ) Not Agree ( ) Other explanation of clinical findings (Please Explain) ( ) Unable to determine (Please Define) ( ) Need to Discuss The medical record reflects the following clinical findings, treatment, and risk factors. Clinical Indicators: tachycardia 169, tachypnea as high as 32, hypoxia of 61%, pneumonia, ABG 7.25/98/62/42 Treatment: O2, BiPAP, IV Solumedrol, Duonebs, Risk Factors: Age, severe COPD, pneumonia Please clarify and document your clinical opinion in the progress notes and discharge summary. Terms such as "probable", "suspected", "likely", "questionable", "possible", or "still to be ruled out" are acceptable. IF IN AGREEMENT, YOU MUST DOCUMENT ABOVE DIAGNOSTIC STATEMENT IN DAILY PROGRESS NOTES AND DISCHARGE SUMMARY. This document is not part of the patient's record. Thank You, Nico Rios, SHREYAS [phone]
--- NOTE | 2016-12-23 09:37 | PULMONARY PROGRESS NOTE ---
DATE: 12/23/2016 TIME: 9:00 a.m. SUBJECTIVE: The patient is confused and has been hallucinating. Her was present with her during this evaluation. He states she has been doing this all night. The patient is remembering back to when she was hospitalized in 2013. She made statements like she was supposed to at 4:00 a.m. but she did not. She was having some visual hallucinations. She was, however, able to tell me that it was December at present. She could tell me the year. OBJECTIVE: GENERAL: The patient did not appear in any distress. Her mental status is as noted above. She has residual ecchymosis on the superior aspect of her forehead and some ecchymosis around the left eye. VITAL SIGNS: Temperature is 36.7. HEENT: Pupils are reactive. Currently, she has a nasal cannula in place. No lymphadenopathy is noted. CARDIOVASCULAR: Heart rate currently is 110 per minute. The rhythm is sinus tachycardia. Her respiratory rate is 20 breaths per minute. Blood pressure is 172/98. LUNGS: The breath sounds on the left are diminished compared with the breath sounds on the right. No active wheezing is heard. Current saturation 94%. This is with the nasal cannula at 4 liters. ABDOMEN: Soft and nontender. Bowel sounds are present. Reportedly, she did not eat, hardly anything. EXTREMITIES: The left lower extremity is immobilized. There is no edema on the right. LABORATORY DATA: Arterial blood gas done last evening at 7:45 p.m. showed a pH of 7.35 with a pCO2 of 78 and a pO2 of 70. That was done with BiPAP 15/6. Blood gas done this morning showed a pH of 7.42 with a pCO2 of 61 and a pO2 of 70. That was done on 4 liters of nasal cannula but it is unclear how long she was off BiPAP. Electrolytes show sodium 139, potassium 4.8, chloride 96, bicarbonate 38. BUN was 15 with a creatinine of 0.77. Blood sugar was 201. Magnesium was low at 1.6. CBC shows a white count today of 14.56. Hemoglobin is 11.6, this is down from 12.8 yesterday. Platelets are 288,000. Blood cultures are still pending. Review of cardiac rhythm strip shows that at some point in time she appeared to be in a 2:1 flutter. Unfortunately, the time is not noted on this. It was labeled as sinus tach but I think it is suspicious for flutter, at least the transient flutter. IMPRESSION: 1. Acute respiratory failure with hypoxia and hypercarbia -- improved. 2. Severe chronic obstructive pulmonary disease. 3. Atelectasis, left lower lobe. 4. Calcified pleural plaque on the right. 5. Mental status changes. COMMENTS AND RECOMMENDATIONS: The patient is actually more confused than yesterday afternoon. This is despite the fact that her blood gases have significantly improved. Her pH is now normalized. pCO2 has improved from 98 down to 61. We are going to continue with the BiPAP at night and if needed during the day. We will recheck an x-ray tomorrow. The plain chest x-ray makes it difficult to evaluate the left lower lobe. Her poor blood gases do not make bronchoscopy feasible unless done while intubated and on mechanical ventilation. For now, we will try to improve her clinically and see what happens. She should continue getting her levalbuterol and ipratropium. She should continue with the ampicillin sulbactam. The steroid dose can be decreased. Her breathing has improved and this may be contributing to her confusion and hallucination. Would continue with the azithromycin. She was on subcu heparin but that was discontinued. The issue of anticoagulation needs close observation because she is at bed rest and she has had a fracture. We will discuss this with Dr. Iqbal. We will ask him to review the rhythm strips as well for his opinion regarding this.
[2016-12-23] MEDS: MAGNESIUM SULFATE 1GM / D5W 1 GM in PREMIXED IN D5W 100 ML IV SCH ×2 (11:00→11:56)
[2016-12-23] MEDS: INSULIN ASPART 100 UNITS/ML 3 ML PEN SC SCH ×3 (12:30→21:27)
[2016-12-23] MEDS: NYSTATIN SUSP 500,000 U/5 ML UDC PO SCH ×4 (12:31→21:30)
[2016-12-23] MEDS: METHYLPREDNISOLONE IV 40 MG in SYRINGE 0 ML IV SCH ×2 (13:48→21:25)
[2016-12-23] MEDS ORDERED: ENOXAPARIN 40 MG/0.4 ML SYR SQ ONE (14:00)
--- NOTE | 2016-12-23 14:11 | PROGRESS NOTE ---
DATE: 12/23/2016 SUBJECTIVE: The patient is resting comfortably in the progressive care unit, surrounded by her family. She is on supplemental nasal oxygen. She reports improvement in her breathing. She is not completely clear what brought her here in terms of the precise events. She does note that she hurt her ankle. She is afebrile. Her vital signs are stable, although she is slightly tachycardic and tachypneic. Her splint is clean, dry and intact. She has a 1+ dorsalis pedis pulse. Her toes are not swollen. They are warm. She can flex and extend her toes with a minor weakness and good range of motion. CT scan is reviewed, which shows a posterior lateral colliculus fracture consistent with a trimalleolar fracture. There is some comminution noted on the lateral side, but generally too large fragments. There is minimal articular impaction. The size of the posterior fracture likely does not require any operative stabilization. IMPRESSION: Trimalleolar fracture of the left ankle. PLAN: Elevate, ice, and nonweightbearing. Once her pulmonary status is stabilized, I would recommend ORIF. I think it is prudent to wait a few days to allow soft tissue envelope to stabilize. We will check her leg tomorrow to see what the status is. Tentatively planning ORIF for some time next week. We will order an anesthesia preop, so that they are aware of the patient's situation. Continue DVT prophylaxis with Lovenox.
[2016-12-23] MEDS ORDERED: NURSING VERBAL MED ORDER ONE (15:30)
[2016-12-23] MEDS: AZITHROMYCIN IV 500 MG in DEXTROSE 5% 250ML 250 ML IV SCH (15:31)
--- NOTE | 2016-12-23 18:43 | Progress Note ---
Subjective Date of Service: Dec 23, 2016. Subjective Pt evaluation today including: conversation w/ patient, conversation w/ family (grand-daughter, son), physical exam, chart review, lab review, review of studies, conversation w/ treasury management sales consultant (pulmonary ), review of inpatient medication list Pain: none PO Intake: no dysphagia noted by staff or family Voiding: no voiding problems pt is off BIPAP and over to NC O2 she has been intermittently confused less cough less dyspnea no fever Problem List Medical Problems: (1) Ankle fracture, left Status: Acute (2) Chronic obstructive pulmonary disease Status: Acute (3) Concussion Status: Acute (4) Hypoxemia Status: Acute (5) Pneumonia Status: Acute Review of Systems Constitutional: No fever Respiratory: + cough, + sputum, + dyspnea on exertion, No dyspnea at rest, No hemoptysis Cardiac: No chest pain Abdomen: No pain Objective Vital Signs Date Time Temp Pulse Resp B/P (MAP) Pulse Ox O2 Delivery O2 Flow Rate FiO2 12/23/16 15:39 107 24 92 Nasal Cannula 3.0 50 12/23/16 15:36 Nasal Cannula 4.0 12/23/16 15:20 36.9 106 18 161/83 (109) 91 Nasal Cannula 4.0 12/23/16 15:17 Nasal Cannula 2.0 12/23/16 12:00 Nasal Cannula 4.0 12/23/16 10:51 36.8 107 28 163/89 (113) 96 12/23/16 10:45 Nasal Cannula 2.0 12/23/16 09:11 166/92 (116) 12/23/16 08:03 36.7 107 20 172/98 (122) 94 BiPAP 12/23/16 08:00 Nasal Cannula 4.0 12/23/16 07:17 106 97 50 12/23/16 07:17 106 28 97 BiPAP/CPAP 50 12/23/16 04:03 36.4 98 20 165/90 (115) 97 BiPAP 12/23/16 04:00 95 BiPAP 50 12/23/16 02:15 100 33 97 BiPAP/CPAP 50 12/23/16 02:15 100 97 50 12/23/16 00:00 95 BiPAP 50 12/22/16 23:26 36.9 102 20 160/92 (114) 96 Room Air 12/22/16 21:39 98 95 50 12/22/16 20:00 93 BiPAP 12/22/16 19:49 103 93 50 12/22/16 19:48 101 33 93 BiPAP/CPAP 50 12/22/16 19:09 37.0 68 18 147/85 (105) 96 BiPAP Physical Exam General Appearance: no apparent distress ENT: + pertinent finding (thrush on tongue ) Neck: no JVD Respiratory/Chest: + wheezing (anterior chest ), + pertinent finding ( posterior chest - airation poor with little air movement but no increased work of breathing ) Cardiovascular: no gallop, no murmur, + tachycardia Abdomen: normal bowel sounds, non tender, soft, no organomegaly Extremities: no pedal edema (right leg), + pertinent finding (left leg/ankle in splint ) Neurologic/Psychiatric: alert Skin: + pertinent finding (bruising/ecchymoses on right forehead; small hematoma on right posterior scalp) Laboratory Results Last 24 Hours Test 12/22/16 19:43 12/22/16 20:40 12/23/16 06:28 12/23/16 07:56 Arterial Blood pH 7.35 7.42 Arterial Blood Partial Pressure CO2 78 mmHg 61 mmHg Arterial Blood Partial Pressure O2 70 mm/Hg 70 mm/Hg Arterial Blood HCO3 42 mmol/L 38 mmol/L Arterial Blood Oxygen Saturation 92.6 % 93.1 % Arterial Blood Base Excess 13.0 mEq/L 11.4 mEq/L Arterial Blood Gas Delivery 15 L BIPAP 4 L Marques Test POS POS Bedside Glucose 215 mg/dl 188 mg/dl White Blood Count 14.56 K/uL Red Blood Count 3.98 M/uL Hemoglobin 11.6 g/dL Hematocrit 36.9 % Mean Corpuscular Volume 92.7 fL Mean Corpuscular Hemoglobin 29.1 pg Mean Corpuscular Hemoglobin Concent 31.4 g/dl RDW Standard Deviation 44.1 fL RDW Coefficient of Variation 13.0 % Platelet Count 288 K/uL Mean Platelet Volume 9.0 fL Sodium Level 139 mmol/L Potassium Level 4.8 mmol/L Chloride Level 96 mmol/L Carbon Dioxide Level 38 mmol/L Anion Gap 5.0 mmol/L Blood Urea Nitrogen 15 mg/dl Creatinine 0.77 mg/dl Est Creatinine Clear Calc Drug Dose 62.1 ml/min Estimated GFR () 86.9 Estimated GFR (Non- 75.0 BUN/Creatinine Ratio 19.7 Random Glucose 201 mg/dl Calcium Level 8.9 mg/dl Magnesium Level 1.6 mg/dl Test 12/23/16 11:17 12/23/16 16:01 Bedside Glucose 219 mg/dl 220 mg/dl Assessment and Plan 76yo female: 1. acute/chronic hypoxic/hypercarbic respiratory failure - 2nd to COPD exacerbation & pneumonia. Improved. Serial ABGs with improved pCO2. Trial off BIPAP and transition to NC O2. 2. sepsis 2nd to b/l pneumonia (lower lobes) - likely aspiration pneumonia given the extent of mucous/secretions in the small/large airways. Currently on unasyn which should suffice; broaden to include better gram negative coverage if she fails to improve or worsen. Zithromax for atypicals. Day #2 of abx today. Continue supportive care. 3. COPD with exacerbation - improving. Steroids reduced by Dr. Bradley. 4. encephalopathy - likely metabolic from #2. Toxic from steroids possible as well. Supportive care - follow. 5. hypomagnesemia - 2 grams mag sulfate; repeat level AM. 6. thrush - nystatin solution QID. 7. DVT proph - lovenox. 8. ?dysphagia given the CT chest findings - speech consult. If deemed to have normal swallow function she could have aspirated in the midst of a fall, etc. 9. left ankle fracture - s/p splint. Ortho following. ORIF in the future once her respiratory status is improved and medically clear. 10. T2DM - uncontrolled, 2nd to steroids - add lantus 10 units TID. Novolog correction factor 30 and carb ratio 1:10. 11. HTN - continue home meds. Thus far uncontrolled. Likely will need to adjust meds. 12. hyponatremia - resolved. d/c fluids. PT, OT when able (to help with ROM, transfers, etc) family updated at bedside Continued [facility] stay due to: abnormal vital signs, ambulation difficulties, multiple IV medications needed, other (left ankle fracture) Discharge planning: uncertain
[2016-12-23] MEDS: LACTOBACILLUS ACIDOPHILUS (FLORANEX) TAB PO SCH ×2 (19:00→21:31)
[2016-12-23] MEDS: GUAIFENESIN 600 MG TABCR PO SCH ×2 (21:00→21:31)
[2016-12-24] VITALS (12 sets, daily range): BP systolic 154–175; BP diastolic 59–95; PULSE 90–118; TEMP 36.4–37.1; O2SAT 90–98
[2016-12-24] MEDS: METOPROLOL TARTRATE 1 MG/ML VIAL IV PRN ×3 (00:59→11:52)
[2016-12-24] MEDS: LEVALBUTEROL 0.63MG/3 ML NEB INH SCH ×4 (02:08→19:29)
[2016-12-24] MEDS: IPRATROPIUM BROMIDE NEB SOLN 0.02% 2.5 ML VIAL INH SCH ×4 (02:08→19:29)
[2016-12-24] MEDS: METHYLPREDNISOLONE IV 40 MG in SYRINGE 0 ML IV SCH ×3 (04:23→21:35)
[2016-12-24] MEDS: AMPICILLIN/SULBACTAM SOD INJ 3,000 MG in SODIUM CHLORIDE 0.9% 100ML 100 ML IV SCH ×4 (04:29→23:52)
[2016-12-24] MEDS ORDERED: METOPROLOL TARTRATE 1 MG/ML VIAL IV STA (04:34)
[2016-12-24 07:33] LABS: ARTERIAL BLD GAS O2 SATURATION 98.7 % (90-95); ARTERIAL BLOOD GAS BASE EXCESS 11.8 mEq/L (-9-1.8); ARTERIAL BLOOD GAS HCO3 40 mmol/L (19-24); ARTERIAL BLOOD GAS PO2 151 mm/Hg (80-95); ARTERIAL BLOOD GAS pH 7.34 (7.35-7.45)
[2016-12-24 07:34] LABS: COMPLETE YES; HEMATOCRIT 35.7 % (37-47); IG% 0.4 %; LYMPH % 4.4 %; LYMPH ABS # 0.88 K/uL (1.2-3.4); MEAN CELL VOLUME 93.2 fL (80-100); MEAN CORPUSCULAR HEMOGLOBIN 29.2 pg (25-34); MEAN CORPUSCULAR HGB CONC 31.4 g/dl (32-36); MEAN PLATELET VOLUME 9.1 fL (7.4-10.4); MONO % 2.7 %; NEUT % 92.5 %; PLATELET COUNT 301 K/uL (130-400); RED BLOOD COUNT 3.83 M/uL (4.2-5.4); WHITE BLOOD COUNT 20.06 K/uL (4.8-10.8)
[2016-12-24 07:35] LABS: ALLEN TEST POS (POS)
[2016-12-24 07:37] LABS: O2 ADMINISTRATION 2 L
[2016-12-24 08:01] LABS: BUN/CREATININE RATIO 26.2 (10-20); CALCIUM 8.6 mg/dl (8.5-10.1); CREATININE 0.73 mg/dl (0.60-1.20); MAGNESIUM 2.1 mg/dl (1.8-2.4)
--- NOTE | 2016-12-24 08:14 | DIAGNOSTIC IMAGING REPORT ---
SINGLE VIEW CHEST CLINICAL HISTORY: Follow-up atelectasis. FINDINGS: An AP, portable, upright chest radiograph is compared to chest x-ray and chest CT dated 12/22/2016. The examination is degraded by portable technique and patient rotation. The heart is enlarged and there is atherosclerotic calcification of the thoracic aorta. The pulmonary vasculature is noncongested. There is advanced emphysema and chronic interstitial thickening. Segmental atelectasis/consolidation and pleural fluid is again seen at the left lung base. Minimal atelectasis at the right lung base. No pneumothorax is seen. The skeletal structures are osteopenic. The bony thorax is grossly intact. IMPRESSION: 1. Cardiomegaly and severe emphysema. 2. Segmental atelectasis, consolidation, and pleural fluid the left lung base is unchanged from yesterday. Correlate clinically for evidence of pneumonia. Electronically signed by: John Glass M.D. 12/24/2016 8:12 AM Dictated Date/Time: 12/24/2016 8:11 AM
[2016-12-24] MEDS: LACTOBACILLUS ACIDOPHILUS (FLORANEX) TAB PO SCH ×3 (09:31→16:42)
[2016-12-24] MEDS: GUAIFENESIN 600 MG TABCR PO SCH ×2 (09:31→21:30)
[2016-12-24] MEDS: FLUTICASONE/SALMETEROL 250/50 (ADVAIR) 14 PUFF/1 INHALER INH SCH ×2 (09:31→21:29)
[2016-12-24] MEDS: DILTIAZEM HCL 120 MG EXT REL CAP PO SCH (09:31)
[2016-12-24] MEDS: NEPHROCAPS PO SCH (09:32)
[2016-12-24] MEDS: CHOLECALCIFEROL 1000 INTER.UNIT TAB PO SCH (09:32)
[2016-12-24] MEDS: FERROUS SULFATE 325 MG TAB PO SCH (09:32)
[2016-12-24] MEDS: OMEGA-3 (PURIFIED FISH OIL) 1 GM CAP PO SCH (09:33)
[2016-12-24] MEDS: NYSTATIN SUSP 500,000 U/5 ML UDC PO SCH ×4 (09:33→21:30)
[2016-12-24] MEDS: NIACIN 500 MG TAB IMMEDIATE RELEASE PO SCH (09:33)
[2016-12-24] MEDS: ENOXAPARIN 40 MG/0.4 ML SYR SQ SCH (09:34)
[2016-12-24] MEDS: INSULIN GLARGINE SOLOSTAR 100 UNITS/ML 3 ML PEN SC SCH ×2 (09:35→21:34)
[2016-12-24] MEDS: INSULIN ASPART 100 UNITS/ML 3 ML PEN SC SCH ×4 (09:36→21:35)
--- NOTE | 2016-12-24 14:04 | Orthopedic Progress Note ---
Orthopedic Progress Note Date of Service Dec 24, 2016. Subjective Reports: feeling well, SOB, pain controlled w PO medications, Denies: complaints , chest pain, calf pain Additional Notes: Left ankle fracture - no pain, states that the splint is comfortable. Objective calves soft nontender, N/V intact (LLE), splint C/D/I, capillary refill less than 2 sec., A&O x3, toes mobile Left ankle splint/webril opened, Minimal edema left ankle. Ecchymosis left medial side of ankle. No evidence of fracture blister medial or lateral ankle. Skin intact. No deformity. Date Time Temp Pulse Resp B/P (MAP) Pulse Ox O2 Delivery O2 Flow Rate FiO2 12/24/16 11:52 112 164/84 12/24/16 11:26 36.9 113 19 164/84 (110) 93 Mask 2.0 12/24/16 07:58 36.7 106 20 162/80 (107) 90 Mask 2.0 12/24/16 07:20 Oxymask 1.0 12/24/16 07:15 111 16 98 Mask 5.0 12/24/16 05:15 154/83 (106) 12/24/16 04:38 115 175/86 12/24/16 04:34 115 175/86 12/24/16 04:15 36.9 118 26 175/86 (115) 92 Oxymask 5.0 12/24/16 04:10 Nasal Cannula 4.0 12/24/16 00:59 125 12/24/16 00:30 Nasal Cannula 4.0 12/23/16 23:51 37.0 108 22 180/91 (120) 95 BiPAP 12/23/16 23:24 110 97 35 12/23/16 20:20 93 Nasal Cannula 4.0 12/23/16 19:39 111 16 93 Nasal Cannula 4.0 12/23/16 19:28 36.8 112 18 149/82 (104) 93 Nasal Cannula 4.0 12/23/16 15:39 107 24 92 Nasal Cannula 3.0 50 12/23/16 15:36 Nasal Cannula 4.0 12/23/16 15:20 36.9 106 18 161/83 (109) 91 Nasal Cannula 4.0 12/23/16 15:17 Nasal Cannula 2.0 Laboratory Results 24 Hours: Test 12/24/16 07:15 White Blood Count 20.06 K/uL Red Blood Count 3.83 M/uL Hemoglobin 11.2 g/dL Hematocrit 35.7 % Mean Corpuscular Volume 93.2 fL Mean Corpuscular Hemoglobin 29.2 pg Mean Corpuscular Hemoglobin Concent 31.4 g/dl Platelet Count 301 K/uL Mean Platelet Volume 9.1 fL Neutrophils (%) (Auto) 92.5 % Lymphocytes (%) (Auto) 4.4 % Monocytes (%) (Auto) 2.7 % Eosinophils (%) (Auto) 0.0 % Basophils (%) (Auto) 0.0 % Neutrophils # (Auto) 18.55 K/uL Lymphocytes # (Auto) 0.88 K/uL Monocytes # (Auto) 0.55 K/uL Eosinophils # (Auto) 0.00 K/uL Basophils # (Auto) 0.00 K/uL Assessment & Plan Assessment: Left ankle fracture/dislocation Plan: Will need ORIF left ankle when cleared by pulmonology. Tentatively scheduled for ORIF of left ankle with Dr. Paredes on 12/28/16. Would recommended spinal anesthesia for procedure. Needs to keep splint on at all times. Ice to right ankle as needed for pain/swelling Elevate right ankle as needed for swelling. Needs to maintain NWB LLE. Family at bedside, explained to them the plan. Will reassess on Tuesday in preparation for surgery Tuesday if able. Patient understands. Patient seen and evaluated by Dr. Paredes today.
--- NOTE | 2016-12-24 14:37 | PROGRESS NOTE ---
DATE: 12/24/2016 DATE: 12/24/2016 PROBLEM LIST: Includes: 1. Acute respiratory failure with hypoxia and hypercarbia, which is improving. 2. Severe chronic obstructive pulmonary disease. 3. Atelectasis, left lower lobe. 4. Calcified pleural plaques on the right. 5. Mental status changes. SUBJECTIVE: The patient is a little bit more cognizant today, although she does get off on tangential conversation and refers back to when she was hospitalized here several years ago. She does realize that month and time of year. She states that breathing [place] she does not feel bad. She does have some cough yet, some congestion yet. She denies any chest pain. Denies any chest pressure or heaviness. No palpitations. No abdominal pain. No nausea, states that her bowels are moving a little bit. She states that she is not passing any gas, has catheter in for voiding. OBJECTIVE: GENERAL: The patient is a 76-year-old female in no acute distress. She is interactive and cooperative, able to complete sentences now without becoming dyspneic. VITAL SIGNS: Temp 36.9, pulse 112, respirations 18, pulse ox 92% on 2 liters via regular mask. NECK: Short, thick, no mass. No adenopathy. No bruit. CHEST: Diminished breath sounds left base. No appreciable wheeze. No rale or rhonchi. CARDIOVASCULAR: Regular rate and rhythm. She is tachycardic at 110-115 beats per minute. No appreciated murmurs, gallops or rubs. ABDOMEN: Bowel sounds are present. Abdomen soft. No tenderness. No guarding, rigidity or organomegaly. EXTREMITIES: No erythema on the right. No edema on the right. Left is immobilized and wrapped. LABORATORY DATA: Shows a white count of 20,000, H&H 11.2 and 35.7, platelet count 301,000. ABG done on 10/02/2016 this morning shows a pO2 151, pCO2 76, pH 7.34 done on 4 liters. She has subsequently been turned down. Chest x-ray done today unchanged compared to yesterday's film showing severe emphysema and cardiomegaly as well as opacity left lung base. IMPRESSION: 1. A 76-year-old female who fell and fractured her leg now having problem with acute respiratory failure with hypoxia, hypercarbia. CO2 was improved yesterday however she did not wear her BiPAP much last night and her CO2 levels have gone back up to to 76 today. At this time, she does need to be on BiPAP through the day. 2. Severe chronic obstructive pulmonary disease. 3. Atelectasis, left lower lobe. At this point, the patient will need to be on BiPAP. She is to be encouraged to be on it a little bit more continuously. Will hold off on repeating BiPAP for now. I would recommend to continue on Zosyn and azithromycin. Ideally, the patient would benefit from bronchoscopic evaluation for this left lower lobe evaluation; however, she would not be able to tolerate unless she was on mechanical ventilation. At this point would continue current steroid therapy as it is. Continue current antibiotic as it is. MTDD
--- NOTE | 2016-12-24 16:09 | Progress Note ---
Subjective Date of Service: Dec 24, 2016. Subjective pt is markedly dyspneic and tires and becomes sob with minimal movement, she has no cough but turns red and purse lips with little movement, she requires BiPap at nights and when sleeping during the day Problem List Medical Problems: (1) Ankle fracture, left Status: Acute (2) Chronic obstructive pulmonary disease Status: Acute (3) Concussion Status: Acute (4) Hypoxemia Status: Acute (5) Pneumonia Status: Acute Review of Systems Constitutional: No fever, No chills Respiratory: + shortness of breath, + dyspnea on exertion, + dyspnea at rest, No cough, No sputum Cardiac: No chest pain, No orthopnea Abdomen: No pain, No nausea, No vomiting Neurologic: No memory loss, No paralysis Objective Vital Signs Date Time Temp Pulse Resp B/P (MAP) Pulse Ox O2 Delivery O2 Flow Rate FiO2 12/24/16 05:15 154/83 (106) 12/24/16 04:38 115 175/86 12/24/16 04:34 115 175/86 12/24/16 04:15 36.9 118 26 175/86 (115) 92 Oxymask 5.0 12/24/16 04:10 Nasal Cannula 4.0 12/24/16 00:59 125 12/24/16 00:30 Nasal Cannula 4.0 12/23/16 23:51 37.0 108 22 180/91 (120) 95 BiPAP 12/23/16 23:24 110 97 35 12/23/16 20:20 93 Nasal Cannula 4.0 12/23/16 19:39 111 16 93 Nasal Cannula 4.0 12/23/16 19:28 36.8 112 18 149/82 (104) 93 Nasal Cannula 4.0 12/23/16 15:39 107 24 92 Nasal Cannula 3.0 50 12/23/16 15:36 Nasal Cannula 4.0 12/23/16 15:20 36.9 106 18 161/83 (109) 91 Nasal Cannula 4.0 12/23/16 15:17 Nasal Cannula 2.0 12/23/16 12:00 Nasal Cannula 4.0 12/23/16 10:51 36.8 107 28 163/89 (113) 96 12/23/16 10:45 Nasal Cannula 2.0 12/23/16 09:11 166/92 (116) 12/23/16 08:03 36.7 107 20 172/98 (122) 94 BiPAP 12/23/16 08:00 Nasal Cannula 4.0 12/23/16 07:17 106 97 50 12/23/16 07:17 106 28 97 BiPAP/CPAP 50 Physical Exam General Appearance: WD/WN, + severe distress Respiratory/Chest: chest non-tender, + decreased breath sounds, + accessory muscle use, + rhonchi Cardiovascular: regular rate, rhythm, no murmur Abdomen: normal bowel sounds, non tender, soft Extremities: + pedal edema Neurologic/Psychiatric: alert, oriented x 3 Laboratory Results Last 24 Hours Test 12/23/16 06:28 12/23/16 07:56 12/23/16 11:17 12/23/16 16:01 Bedside Glucose 188 mg/dl 219 mg/dl 220 mg/dl White Blood Count 14.56 K/uL Red Blood Count 3.98 M/uL Hemoglobin 11.6 g/dL Hematocrit 36.9 % Mean Corpuscular Volume 92.7 fL Mean Corpuscular Hemoglobin 29.1 pg Mean Corpuscular Hemoglobin Concent 31.4 g/dl RDW Standard Deviation 44.1 fL RDW Coefficient of Variation 13.0 % Platelet Count 288 K/uL Mean Platelet Volume 9.0 fL Arterial Blood pH 7.42 Arterial Blood Partial Pressure CO2 61 mmHg Arterial Blood Partial Pressure O2 70 mm/Hg Arterial Blood HCO3 38 mmol/L Arterial Blood Oxygen Saturation 93.1 % Arterial Blood Base Excess 11.4 mEq/L Arterial Blood Gas Delivery 4 L Marques Test POS Sodium Level 139 mmol/L Potassium Level 4.8 mmol/L Chloride Level 96 mmol/L Carbon Dioxide Level 38 mmol/L Anion Gap 5.0 mmol/L Blood Urea Nitrogen 15 mg/dl Creatinine 0.77 mg/dl Est Creatinine Clear Calc Drug Dose 62.1 ml/min Estimated GFR () 86.9 Estimated GFR (Non- 75.0 BUN/Creatinine Ratio 19.7 Random Glucose 201 mg/dl Calcium Level 8.9 mg/dl Magnesium Level 1.6 mg/dl Test 12/23/16 20:30 Bedside Glucose 217 mg/dl Assessment and Plan 76yo female: acute/chronic hypoxic/hypercarbic respiratory failure acute/chronic hypoxic/hypercarbic respiratory failure - 2nd to COPD exacerbation & pneumonia. attempting to wean to [place] O2. tapering steroids, pt is markedly short of breath will add formoterol and is not better may consider hospice evaluation sepsis 2nd to b/l pneumonia (lower lobes) - aspiration pneumonia unasyn and Zithromax for atypicals. 12/31 will be 10 day course ?dysphagia given the CT chest findings - speech consult thrush - nystatin solution QID. metabolic encephalopathy - improving with treatment of medical problems and tapering steroids uncontrolled htn, adjust medical management, with flushing considering Pheo or similar if Bp continues to be challenging may have 24 hour catecholamines hypomagnesemia -replete. left ankle fracture - s/p splint. Ortho following. ORIF in the future once her respiratory status is improved and medically clear. T2DM - uncontrolled, 2nd to steroids - add lantus 10 units TID. Novolog correction factor 30 and carb ratio 1:10. hyponatremia - resolved. DVT proph - lovenox. PT, OT when able (to help with ROM, transfers, etc), will need placement short term unless we consider hospice Continued [facility] stay due to: abnormal vital signs, ambulation difficulties, multiple IV medications needed, other (left ankle fracture) Discharge planning: uncertain
[2016-12-24] MEDS: AZITHROMYCIN IV 500 MG in DEXTROSE 5% 250ML 250 ML IV SCH (16:41)
[2016-12-24] MEDS: FORMOTEROL FUMA NEBULIZER SOLN 20 MCG/2 ML VIAL INH SCH (19:28)
[2016-12-24] MEDS ORDERED: FORMOTEROL FUMA NEBULIZER SOLN 20 MCG/2 ML VIAL INH SCH (20:00)
[2016-12-25] VITALS (18 sets, daily range): BP systolic 148–189; BP diastolic 75–90; PULSE 75–111; TEMP 36.6–37; O2SAT 88–96
[2016-12-25] MEDS: IPRATROPIUM BROMIDE NEB SOLN 0.02% 2.5 ML VIAL INH SCH ×4 (01:50→19:51)
[2016-12-25] MEDS: LEVALBUTEROL 0.63MG/3 ML NEB INH SCH ×4 (01:51→19:51)
[2016-12-25] MEDS: AMPICILLIN/SULBACTAM SOD INJ 3,000 MG in SODIUM CHLORIDE 0.9% 100ML 100 ML IV SCH ×2 (05:48→11:04)
[2016-12-25] MEDS: METHYLPREDNISOLONE IV 40 MG in SYRINGE 0 ML IV SCH ×2 (05:48→17:39)
[2016-12-25] MEDS: FORMOTEROL FUMA NEBULIZER SOLN 20 MCG/2 ML VIAL INH SCH ×2 (07:29→19:51)
[2016-12-25] MEDS: OMEGA-3 (PURIFIED FISH OIL) 1 GM CAP PO SCH (08:09)
[2016-12-25] MEDS: NIACIN 500 MG TAB IMMEDIATE RELEASE PO SCH (08:09)
[2016-12-25] MEDS: NYSTATIN SUSP 500,000 U/5 ML UDC PO SCH ×4 (08:09→20:40)
[2016-12-25] MEDS: DILTIAZEM HCL 120 MG EXT REL CAP PO SCH (08:09)
[2016-12-25] MEDS: NEPHROCAPS PO SCH (08:10)
[2016-12-25] MEDS: LACTOBACILLUS ACIDOPHILUS (FLORANEX) TAB PO SCH ×3 (08:10→17:38)
[2016-12-25] MEDS: CHOLECALCIFEROL 1000 INTER.UNIT TAB PO SCH (08:10)
[2016-12-25] MEDS: FERROUS SULFATE 325 MG TAB PO SCH (08:10)
[2016-12-25] MEDS: FLUTICASONE/SALMETEROL 250/50 (ADVAIR) 14 PUFF/1 INHALER INH SCH ×2 (08:11→20:41)
[2016-12-25] MEDS: GUAIFENESIN 600 MG TABCR PO SCH ×2 (08:11→20:40)
[2016-12-25] MEDS: ENOXAPARIN 40 MG/0.4 ML SYR SQ SCH (08:12)
[2016-12-25] MEDS: INSULIN ASPART 100 UNITS/ML 3 ML PEN SC SCH ×4 (08:13→20:44)
[2016-12-25] MEDS: INSULIN GLARGINE SOLOSTAR 100 UNITS/ML 3 ML PEN SC SCH ×2 (08:15→20:45)
--- NOTE | 2016-12-25 08:45 | PULMONARY PROGRESS NOTE ---
DATE: 12/25/2016 DATE: 12/25/2016 TIME: 7:55 a.m. SUBJECTIVE: The patient was still wearing BiPAP when I came into the room. This was removed. The patient is speaking clearly. She keeps insisting that she wants to . Her was present when I first came in. He left almost immediately. He expressed that he is exhausted from all of this. His states that he has been upset with her. The patient denies significant shortness of breath. She seems to know where she is at. However, she is stating that people are not nice to her and they are causing her a lot of pain and discomfort. I do not believe she is entirely oriented. OBJECTIVE: GENERAL: The patient appeared in no distress. She still has ecchymosis surrounding the left eye and on the upper forehead. Temperature is 36.8. HEART: Heart rate is 100 per minute. The rhythm is regular. Blood pressure 168/90. LUNGS: Lung baez continue to reveal diminished breath sounds on the left compared with the right. No active wheezing was heard. Saturation was 95% when wearing the BiPAP. Her FIO2 is 35% on the BiPAP. She is now on nasal cannula. ABDOMEN: Soft. There is mild fullness in the upper abdominal region. There was no tenderness. EXTREMITIES: Left leg is still in the immobilizer. Right leg shows no edema. The patient had a chest x-ray done yesterday. There is some persistence of opacification in the left lower lung field and retrocardiac area. I suspect this is related to the atelectasis that had been seen on her initial CAT scan of the chest. The most recent blood gas was done yesterday morning. This showed a pH of 7.34 with a pCO2 of 76 and a pO2 of 151. This was on 2 liters reportedly. We believe that she was likely on higher oxygen just before this was done. That blood gas reflects worsening of her pCO2 levels. Blood sugar this morning was 216. IMPRESSIONS: 1. Acute respiratory failure with hypoxia and hypercarbia. 2. Chronic obstructive pulmonary disease -- severe. 3. Atelectasis, left lower lobe. 4. Right-sided calcified pleural plaques. 5. Fracture of the left ankle. COMMENTS AND RECOMMENDATIONS: The patient's mental status has improved somewhat since admission. She still has I believe some degree of confusion and disorientation. The patient keeps talking about wanting to . I asked her if she had a living will. She states they had papers, but never filled them out. Perhaps someone should discuss with her and her family the code status situation. She does have severe and essentially end stage lung disease. I suspect she has significant secretions in the left lung that are difficult to clear. Alternatively, she could have a neoplasm which is not otherwise being seen on CAT scan. She remains a tremendously high risk for surgical procedure. I believe the best we could hope for in a few days would be perhaps doing a procedure under spinal. She remains on the methylprednisolone 40 mg IV q. 8 hours. I believe we might want to decrease that somewhat. It does not seem like the steroids have made a dramatic difference. We should still continue with the BiPAP at night. Would continue with the antibiotics as current. Unfortunately, she is not bringing up any secretions at all. She is a difficult management case with her underlying circumstances.
[2016-12-25] MEDS: HydrALAZINE HCL 20 MG/ML VIAL IV PRN (09:33)
--- NOTE | 2016-12-25 14:23 | Progress Note ---
Subjective Date of Service: Dec 25, 2016. Subjective pt is markedly improved but is still confused at times, her breathing is much better Problem List Medical Problems: (1) Ankle fracture, left Status: Acute (2) Chronic obstructive pulmonary disease Status: Acute (3) Concussion Status: Acute (4) Hypoxemia Status: Acute (5) Pneumonia Status: Acute Review of Systems Constitutional: + weakness, No fever, No chills Respiratory: + cough, + wheezing, + shortness of breath, + dyspnea on exertion Cardiac: No chest pain, No edema Abdomen: No pain, No nausea, No vomiting Neurologic: + memory loss, + weakness Psychiatric: + depression symptoms, + anxiety Objective Vital Signs Date Time Temp Pulse Resp B/P (MAP) Pulse Ox O2 Delivery O2 Flow Rate FiO2 12/25/16 07:32 91 95 35 12/25/16 07:29 91 26 95 BiPAP/CPAP 35 12/25/16 04:00 96 Nasal Cannula 3.0 12/25/16 03:56 36.8 75 24 168/90 (116) 96 CPAP 12/25/16 01:53 83 93 35 12/25/16 01:51 87 20 95 BiPAP/CPAP 35 12/25/16 00:01 96 Nasal Cannula 3.0 12/24/16 23:46 37.1 103 20 167/95 (119) 96 Nasal Cannula 3.0 12/24/16 20:13 36.4 105 18 157/59 (91) 91 Room Air 12/24/16 20:00 91 Room Air 12/24/16 19:31 108 28 93 BiPAP/CPAP 35 12/24/16 19:31 108 93 35 12/24/16 16:30 BiPAP 12/24/16 15:52 37.0 103 18 155/80 (105) 91 Oxymask 2.0 12/24/16 14:19 90 92 35 12/24/16 14:14 90 28 92 BiPAP/CPAP 35 12/24/16 11:52 112 164/84 12/24/16 11:26 36.9 113 19 164/84 (110) 93 Mask 2.0 Physical Exam General Appearance: WD/WN, + mild distress Eyes: PERRL, EOMI Neck: supple, no JVD Respiratory/Chest: chest non-tender, + decreased breath sounds, + accessory muscle use, + rhonchi Cardiovascular: regular rate, rhythm, no murmur Abdomen: normal bowel sounds, non tender, soft Extremities: no pedal edema, no calf tenderness Neurologic/Psychiatric: alert, + disoriented Laboratory Results Last 24 Hours Test 12/24/16 11:07 12/24/16 16:27 12/24/16 20:36 12/25/16 06:39 Bedside Glucose 200 mg/dl 195 mg/dl 237 mg/dl 216 mg/dl Assessment and Plan 76yo female: acute/chronic hypoxic/hypercarbic respiratory failure acute/chronic hypoxic/hypercarbic respiratory failure - 2nd to COPD exacerbation & pneumonia. attempting to wean to [place] O[place]. tapering steroids, 12/24 added formoterol and has improved with exception of encephalopathy sepsis 2nd to b/l pneumonia (lower lobes) - aspiration pneumonia unasyn and Zithromax for atypicals. 12/31 will be 10 day course will transition to augmentin ?dysphagia given the CT chest findings - speech consult does not feel pt is aspiration risk encephalopathy, infection seems to be improving, but not confusion ? if from steroids as toxic encephalopathy thrush - nystatin solution QID. improved uncontrolled htn, adjust medical management, still variable, no further flushing hypomagnesemia -replete. left ankle fracture - s/p splint. Ortho following. ORIF in the future once her respiratory status is improved and medically clear. T2DM -imorioved with lantus, 2nd to steroids -. Novolog correction factor 30 and carb ratio 1:10. hyponatremia - resolved. DVT proph - lovenox. PT, OT when able (to help with ROM, transfers, etc), will need placement short term, continue to consider hospice Continued [facility] stay due to: abnormal vital signs, ambulation difficulties, multiple IV medications needed, other (left ankle fracture) Discharge planning: uncertain
[2016-12-25] MEDS: AMOXICILLIN/CLAVULANATE TAB 875 MG TAB PO SCH (18:16)
[2016-12-26] VITALS (15 sets, daily range): BP systolic 105–186; BP diastolic 74–95; PULSE 82–112; TEMP 36.5–36.8; O2SAT 84–98
[2016-12-26] MEDS: LEVALBUTEROL 0.63MG/3 ML NEB INH SCH ×4 (01:37→19:03)
[2016-12-26] MEDS: IPRATROPIUM BROMIDE NEB SOLN 0.02% 2.5 ML VIAL INH SCH ×4 (01:37→19:03)
[2016-12-26] MEDS: HydrALAZINE HCL 20 MG/ML VIAL IV PRN ×2 (03:46→14:41)
[2016-12-26] MEDS: METHYLPREDNISOLONE IV 40 MG in SYRINGE 0 ML IV SCH ×2 (05:53→17:48)
[2016-12-26] MEDS: FORMOTEROL FUMA NEBULIZER SOLN 20 MCG/2 ML VIAL INH SCH ×2 (07:27→19:03)
[2016-12-26] MEDS: FERROUS SULFATE 325 MG TAB PO SCH (08:29)
[2016-12-26] MEDS: NIACIN 500 MG TAB IMMEDIATE RELEASE PO SCH (08:29)
[2016-12-26] MEDS: GUAIFENESIN 600 MG TABCR PO SCH ×2 (08:29→21:06)
[2016-12-26] MEDS: CHOLECALCIFEROL 1000 INTER.UNIT TAB PO SCH (08:29)
[2016-12-26] MEDS: NEPHROCAPS PO SCH (08:30)
[2016-12-26] MEDS: OMEGA-3 (PURIFIED FISH OIL) 1 GM CAP PO SCH (08:30)
[2016-12-26] MEDS: DILTIAZEM HCL 120 MG EXT REL CAP PO SCH (08:30)
[2016-12-26] MEDS: AMOXICILLIN/CLAVULANATE TAB 875 MG TAB PO SCH ×2 (08:30→17:49)
[2016-12-26] MEDS: NYSTATIN SUSP 500,000 U/5 ML UDC PO SCH ×4 (08:30→21:06)
[2016-12-26] MEDS: LACTOBACILLUS ACIDOPHILUS (FLORANEX) TAB PO SCH ×3 (08:30→17:49)
[2016-12-26] MEDS: FLUTICASONE/SALMETEROL 250/50 (ADVAIR) 14 PUFF/1 INHALER INH SCH ×2 (08:31→21:07)
[2016-12-26] MEDS: ENOXAPARIN 40 MG/0.4 ML SYR SQ SCH (08:32)
[2016-12-26] MEDS: INSULIN ASPART 100 UNITS/ML 3 ML PEN SC SCH ×4 (09:10→21:11)
[2016-12-26] MEDS: INSULIN GLARGINE SOLOSTAR 100 UNITS/ML 3 ML PEN SC SCH ×2 (09:11→21:12)
--- NOTE | 2016-12-26 15:58 | Progress Note ---
Subjective Date of Service: Dec 26, 2016. Subjective pt appears to continue to improve each day, less confused and still with painful leg Problem List Medical Problems: (1) Ankle fracture, left Status: Acute (2) Chronic obstructive pulmonary disease Status: Acute (3) Concussion Status: Acute (4) Hypoxemia Status: Acute (5) Pneumonia Status: Acute Review of Systems Constitutional: No fever, No chills, No weakness Respiratory: + shortness of breath, + dyspnea on exertion, No cough Cardiac: No chest pain, No edema Objective Vital Signs Date Time Temp Pulse Resp B/P (MAP) Pulse Ox O2 Delivery O2 Flow Rate FiO2 12/26/16 07:00 36.8 103 18 168/90 (116) 98 Nasal Cannula 2.0 12/26/16 06:26 112 186/83 (117) 12/26/16 03:41 89 Nasal Cannula 2.0 12/26/16 03:40 102 185/95 (125) 84 Nasal Cannula 1.0 12/26/16 01:37 92 24 95 BiPAP/CPAP 35 12/25/16 23:45 89 94 35 12/25/16 23:35 BiPAP 12/25/16 23:05 36.9 102 16 171/83 (112) 94 Nasal Cannula 2.0 12/25/16 19:51 111 20 93 Nasal Cannula 2.0 12/25/16 16:00 36.8 106 20 166/77 (106) 88 Nasal Cannula 2.0 12/25/16 16:00 Nasal Cannula 2.0 12/25/16 14:45 36.6 109 20 159/80 (106) 91 Nasal Cannula 2.0 12/25/16 14:21 106 20 90 Nasal Cannula 2.0 12/25/16 13:58 37.0 101 19 93 2.0 12/25/16 12:08 37.0 101 19 148/75 (99) 93 Nasal Cannula 2.0 12/25/16 12:00 Nasal Cannula 3.0 12/25/16 09:49 170/89 (116) 12/25/16 08:00 Nasal Cannula 3.0 12/25/16 07:45 172/81 (111) 12/25/16 07:34 36.9 96 23 189/79 (115) 96 BiPAP 12/25/16 07:32 91 95 35 12/25/16 07:29 91 26 95 BiPAP/CPAP 35 Physical Exam General Appearance: WD/WN, + mild distress Neck: supple, no JVD Respiratory/Chest: chest non-tender, + decreased breath sounds, + accessory muscle use, + pertinent finding (poor air movement) Cardiovascular: regular rate, rhythm, + systolic murmur Abdomen: normal bowel sounds, non tender, soft Neurologic/Psychiatric: alert, oriented x 3 Laboratory Results Last 24 Hours Test 12/25/16 10:59 12/25/16 17:01 12/25/16 20:28 Bedside Glucose 188 mg/dl 205 mg/dl 271 mg/dl Assessment and Plan 76yo female: acute/chronic hypoxic/hypercarbic respiratory failure, acute ankle fracture acute/chronic hypoxic/hypercarbic respiratory failure - 2nd to COPD exacerbation & pneumonia. attempting to wean to [place] O2. tapering steroids, 12/24 added formoterol and has improved with exception of encephalopathy sepsis 2nd to b/l pneumonia (lower lobes) - aspiration pneumonia unasyn and Zithromax for atypicals. 12/31 will be 10 day course will transition to augmentin ?dysphagia given the CT chest findings - speech consult does not feel pt is aspiration risk encephalopathy, infection seems to be improving ? if from steroids as toxic encephalopathy thrush - nystatin solution QID. improved uncontrolled htn, adjust medical management, still variable, no further flushing hypomagnesemia -replete. left ankle fracture - s/p splint. Ortho following. ORIF in the future once her respiratory status is improved and medically clear, she will always be at high risk for post op recovery given extent of lung disease uncontrolled T2DM -increased lantus 12/25, adjusted SSI 12/26, better control but still not optimal hyponatremia - resolved. DVT proph - lovenox. PT, OT when able (to help with ROM, transfers, etc), will need placement short term, continue to consider hospice Continued [facility] stay due to: abnormal vital signs, ambulation difficulties, multiple IV medications needed, other (left ankle fracture) Discharge planning: uncertain
[2016-12-27] VITALS (9 sets, daily range): BP systolic 138–178; BP diastolic 69–94; PULSE 53–110; TEMP 36.9; O2SAT 90–97
[2016-12-27] MEDS: LEVALBUTEROL 0.63MG/3 ML NEB INH SCH ×4 (01:53→19:37)
[2016-12-27] MEDS: IPRATROPIUM BROMIDE NEB SOLN 0.02% 2.5 ML VIAL INH SCH ×4 (01:53→19:37)
[2016-12-27] MEDS: FORMOTEROL FUMA NEBULIZER SOLN 20 MCG/2 ML VIAL INH SCH ×2 (07:06→19:36)
[2016-12-27] MEDS: LACTOBACILLUS ACIDOPHILUS (FLORANEX) TAB PO SCH ×3 (09:44→19:04)
[2016-12-27] MEDS: FLUTICASONE/SALMETEROL 250/50 (ADVAIR) 14 PUFF/1 INHALER INH SCH ×2 (09:45→20:39)
[2016-12-27] MEDS: DILTIAZEM HCL 300 MG CAPCR PO SCH (09:46)
[2016-12-27] MEDS: FERROUS SULFATE 325 MG TAB PO SCH (09:47)
[2016-12-27] MEDS: GUAIFENESIN 600 MG TABCR PO SCH ×2 (09:48→20:40)
[2016-12-27] MEDS: NEPHROCAPS PO SCH (09:49)
[2016-12-27] MEDS: NYSTATIN SUSP 500,000 U/5 ML UDC PO SCH ×4 (09:49→20:40)
[2016-12-27] MEDS: OMEGA-3 (PURIFIED FISH OIL) 1 GM CAP PO SCH (09:50)
[2016-12-27] MEDS: CHOLECALCIFEROL 1000 INTER.UNIT TAB PO SCH (09:51)
[2016-12-27] MEDS: ENOXAPARIN 40 MG/0.4 ML SYR SQ SCH (09:51)
[2016-12-27] MEDS: NIACIN 500 MG TAB IMMEDIATE RELEASE PO SCH (09:51)
[2016-12-27] MEDS: INSULIN ASPART 100 UNITS/ML 3 ML PEN SC SCH ×4 (09:58→21:00)
[2016-12-27] MEDS: INSULIN GLARGINE SOLOSTAR 100 UNITS/ML 3 ML PEN SC SCH ×2 (09:59→21:00)
--- NOTE | 2016-12-27 11:02 | PROGRESS NOTE ---
DATE: 12/27/2016 SUBJECTIVE: Joyce is now on the med/surg ortho floor. She has gone to the bathroom in the sitting upright in a chair with her leg somewhat dependent. Reenforced elevation. Today, she is awake, alert and oriented x3. Her left ankle is comfortable. She has been afebrile. Her vital signs are stable. She did have a gram positive cocci growing out of her blood. Her C. diff was negative. She has been on prednisone, Augmentin, Lovenox, which is now held. White count is 20,000, likely secondary to her lung problem and steroids. Her hemoglobin is 11, hematocrit 36, platelet count is 301. Her INR is 1.0. Her chemistries are noted. BUN slightly high at 19. She is retaining CO2, which is 39. Albumin is 3.2. OBJECTIVE: On exam, the splint is removed. She has a 1+ dorsalis pedis pulse. She can wiggle her toes and her sensation is intact throughout the foot. Skin wrinkles are present. There is no blistering or breakdown of the skin. She has tenderness medially and laterally. Her ankle is unstable side to side. She has bruising medially, but no blisters and positive skin wrinkles are present. Her foot is nontender. IMPRESSION: Trimalleolar fracture of the left ankle, severe chronic obstructive pulmonary disease, pneumonia, type 2 diabetes. PLAN: Findings have been discussed with the patient. I have recommended open reduction internal fixation when her medical conditions are stabilized. I spoke with Dr. Green today and we are in agreement that tomorrow would be an opportune time to fixate her unstable ankle fracture. An anesthesia consultation was placed and I spoke with Dr. Green. Her Lovenox will be held. She will receive Ancef preoperatively as well as a stress dose of hydrocortisone as she is on chronic steroid therapy. We will plan on doing a spinal anesthetic in the supine position and fixating her medial and lateral malleoli. The posterior malleolar fracture I think will reduce well with addressing the lateral fracture and does not represent a significant portion of the articular surface. Attempted percutaneous fixation on the medial side of would be considered if it is possible. An informed consent has been obtained, she will be n.p.o. after midnight. Continue elevation, nonweightbearing on the left lower extremity.
--- NOTE | 2016-12-27 13:58 | Pulmonology Progress Note ---
Pulmonary Progress Note Date of Service Dec 27, 2016. Attending Dr. Amezcua Subjective Patient seen and examined at bedside. She is out of bed chair. She states that her breathing feels much better. She feels less short of breath and has no cough. She used BIPAP overnight without any issues. Objective VS reviewed. Tm 36.9, BP 178/94, P53-102, RR 18-23, SaO2 90-97%, currently room air. HEENT: ecchymosis of left eye CVS: S1, S2, RRR Lungs: good air entry bilaterally, no crackles, no wheezes Abd: soft/NT/ND/BS+ Ext: left lower extremity in cast, trace edema right lower extremity Labs reviewed Blood culture- 12/22/2016: Micrococcus species in one bottle, NGTD in other bottle Stool 12/24/2015: C diff toxin B not detected Images reviewed and viewed Chest xray 12/27/2016 IMPRESSION: 1. Cardiomegaly and severe emphysema. 2. Segmental atelectasis, consolidation, and pleural fluid the left lung base is unchanged from yesterday. Correlate clinically for evidence of pneumonia. Medications reviewed. Assessment & Plan 1. Acute respiratory failure with hypoxia and hypercarbia- improved. 2. Chronic obstructive pulmonary disease -- severe. 3. Atelectasis, left lower lobe. 4. Right-sided calcified pleural plaques. 5. Fracture of the left ankle. Ms. Mcclendon appears to be improving. Her mental status is back at baseline. The patient's mental status has improved clinically. She is scheduled for left foot surgical fixation tomorrow. Continue with inhaled corticosteroids, bronchodilators and antibiotics. She remains a high risk for this procedure due to underlying lung disease. Anesthesia has been consulted for spinal anesthesia. I do agree with corticosteroids in the perioperative period. Continue with BIPAP post operatively and use supplemental oxygen prn to maintain SaO2 > 88-92% Encourage incentive spirometry to prevent atelectasis and flutter valve for pulmonary toilet. Ideally, she should have bronchoscopy, but due to tenuous respiratory status will hold off for now. I will sign of case. Please call me if you have any questions or concerns. Data Medications: Current Inpatient Medications Medications (Trade) Dose Ordered Sig/Silvestre Route Start Time Stop Time Status Last Admin Dose Admin Fish Oil ([place]-3 (Purified Fish Oil) Cap) 1 gm DAILY PO 12/23/16 09:00 01/22/17 08:59 12/27/16 09:50 1 GM Salmeterol Xinafoate/ Fluticasone (Advair Diskus 250/50 Inh) 1 puff Q12 INH 12/22/16 21:00 01/21/17 20:59 12/27/16 09:45 1 PUFF Vitamin B Complex/ Vit C/Folic Acid (Nephrocaps) 1 cap DAILY PO 12/23/16 09:00 01/22/17 08:59 12/27/16 09:49 1 CAP Cholecalciferol (Vitamin D Tab) 2,000 inter.unit DAILY PO 12/23/16 09:00 01/22/17 08:59 12/27/16 09:51 2,000 INTER.UNIT Ferrous Sulfate (Feosol Tab) 325 mg DAILY PO 12/23/16 09:00 01/22/17 08:59 12/27/16 09:47 325 MG Niacin (Niacin Tab) 1,000 mg QAM PO 12/23/16 09:00 01/22/17 08:59 12/27/16 09:51 1,000 MG Acetaminophen (Tylenol Tab) 650 mg Q4H PRN PO 12/22/16 12:15 01/21/17 12:14 Al Hydrox/Mg Hydrox/Simethicone (Maalox Max Susp) 15 ml Q4H PRN PO 12/22/16 12:15 01/21/17 12:14 Magnesium Hydroxide (Milk Of Magnesia Susp) 30 ml Q12H PRN PO 12/22/16 12:15 01/21/17 12:14 Ondansetron HCl (Zofran Inj) 4 mg Q6H PRN IV 12/22/16 12:15 01/21/17 12:14 Morphine Sulfate (MoRPHine SULFATE INJ) 2 mg Q30M PRN IV 12/22/16 12:15 01/05/17 12:14 Polyethylene (Miralax Powder Packet) 17 gm DAILY PRN PO 12/22/16 12:15 01/21/17 12:14 Albuterol Sulfate (Ventolin 0.083% 2.5MG/3ML Neb) 2.5 mg Q4H PRN INH 12/22/16 12:15 01/21/17 12:14 Acetaminophen (Tylenol Tab) 1,000 mg Q8H PRN PO 12/22/16 13:45 01/21/17 13:44 Metoprolol Tartrate (Lopressor Iv) 5 mg Q4 PRN IV 12/22/16 16:45 01/21/17 16:44 12/24/16 11:52 5 MG Ipratropium [place] (Atrovent 0.02% 0.5MG/2.5ML Neb) 0.5 mg Q6R INH 12/22/16 21:00 01/21/17 20:59 12/27/16 01:53 0.5 MG Levalbuterol (Xopenex 0.63 Mg/ 3 Ml Neb) 0.63 mg Q6R INH 12/22/16 21:00 01/21/17 20:59 12/27/16 01:53 0.63 MG Insulin Aspart (novoLOG ASPART) SLIDING SCALE G... ACHS SC 12/23/16 11:00 01/22/17 10:59 12/27/16 09:58 6 UNITS Glucose (Glucose 40% Gel) 15-30 GRAMS 15 GRAMS... UD PRN PO 12/23/16 08:00 01/22/17 07:59 Glucose (Glucose Chew Tab) 4-8 Tablets 4 Tabl... UD PRN PO 12/23/16 08:00 01/22/17 07:59 Dextrose (Dextrose 50% 50ML Syringe) 25-50ML OF 50% DW IV FOR... UD PRN IV 12/23/16 08:00 01/22/17 07:59 Glucagon (Glucagon Inj) 1 mg UD PRN SQ 12/23/16 08:00 01/22/17 07:59 Nystatin (Mycostatin Susp) 5 ml QID PO 12/23/16 13:00 01/02/17 12:59 12/27/16 09:49 5 ML Enoxaparin Sodium (Lovenox Inj) 40 mg QAM SQ 12/24/16 09:00 01/23/17 08:59 Future Hold 12/27/16 09:51 40 MG Lactobacillus Acidophilus (Floranex Tab) 4 tab TIDM PO 12/23/16 19:00 01/22/17 18:59 12/27/16 09:44 4 TAB Guaifenesin (Mucinex Contr Rel Tab) 1,200 mg Q12 PO 12/23/16 21:00 01/22/17 20:59 12/27/16 09:48 1,200 MG Formoterol Fumarate (Perforomist 20MCG/2ML Neb Soln) 20 mcg BIDR INH 12/24/16 20:00 01/23/17 19:59 12/27/16 07:06 20 MCG Hydralazine HCl (HydrALAZINE INJ) 10 mg Q4H PRN IV 12/25/16 08:45 01/24/17 08:44 12/26/16 14:41 10 MG Insulin Glargine (Lantus Solostar Pen) 14 units BID SC 12/25/16 20:00 01/22/17 08:59 12/27/16 09:59 14 UNITS Amoxicillin/ Clavulanate Potassium (Augmentin Tab) 875 mg BIDM PO 12/25/16 16:45 01/01/17 16:44 12/26/16 17:49 875 MG Prednisone (PredniSONE TAB) 40 mg DAILY PO 12/27/16 09:00 01/26/17 08:59 12/27/16 09:52 40 MG Diltiazem HCl (Cardizem Cd Cap) 300 mg QAM PO 12/27/16 09:00 01/26/17 08:59 12/27/16 09:46 300 MG Cefazolin Sodium 2000 mg/Dextrose 60 ml @ 100 mls/hr PREOP IV 12/28/16 06:00 12/29/16 05:59 Hydrocortisone Sodium Succinate 100 mg/Syringe 2 ml @ 4 mls/min PREOP IV 12/28/16 06:00 12/28/16 18:00 Vital Signs: Date Time Temp Pulse Resp B/P (MAP) Pulse Ox O2 Delivery O2 Flow Rate FiO2 12/27/16 08:30 Nasal Cannula 2.0 12/27/16 07:17 36.9 53 18 178/94 (122) 94 Nasal Cannula 3.0 12/27/16 07:13 102 20 90 Nasal Cannula 3.0 12/27/16 02:28 97 35 12/27/16 01:57 90 23 96 BiPAP/CPAP 35 12/27/16 00:00 BiPAP 12/26/16 23:50 36.5 102 20 162/83 (109) 95 BiPAP 12/26/16 22:10 94 35 12/26/16 19:06 88 20 94 Nasal Cannula 2.0 12/26/16 15:15 Nasal Cannula 2.0 BiPAP 12/26/16 15:06 36.8 82 18 172/75 (107) 91 Nasal Cannula 2.0 12/26/16 15:00 110 20 90 Nasal Cannula 2.0 12/26/16 14:39 110 185/80 (115) 12/26/16 14:15 178/74 (108) 12/26/16 14:08 105/76 (86) Laboratory Results: Last 24 Hours Test 12/26/16 17:16 12/26/16 20:52 12/27/16 13:18 Bedside Glucose 216 mg/dl 211 mg/dl 116 mg/dl
[2016-12-27] MEDS: AMOXICILLIN/CLAVULANATE TAB 875 MG TAB PO SCH ×2 (14:11→20:39)
--- NOTE | 2016-12-27 17:01 | Progress Note ---
Subjective Date of Service: Dec 27, 2016. Subjective this pt is doing well but has baseline dyspnea, that makes the OR incur some risk Problem List Medical Problems: (1) Ankle fracture, left Status: Acute (2) Chronic obstructive pulmonary disease Status: Acute (3) Concussion Status: Acute (4) Hypoxemia Status: Acute (5) Pneumonia Status: Acute Review of Systems Constitutional: No fever, No chills Respiratory: + cough, + shortness of breath, + dyspnea on exertion, No sputum Cardiac: No chest pain, No orthopnea, No edema Abdomen: No pain, No nausea, No vomiting, No diarrhea Musculoskeletal: + joint pain, + muscle pain, + swelling Psychiatric: No depression symptoms, No anhedonism Objective Vital Signs Date Time Temp Pulse Resp B/P (MAP) Pulse Ox O2 Delivery O2 Flow Rate FiO2 12/27/16 15:26 Nasal Cannula 2.0 12/27/16 15:20 36.9 89 20 156/79 (104) 91 Nasal Cannula 2.0 12/27/16 14:17 107 20 94 Nasal Cannula 3.0 12/27/16 08:30 Nasal Cannula 2.0 12/27/16 07:17 36.9 53 18 178/94 (122) 94 Nasal Cannula 3.0 12/27/16 07:13 102 20 90 Nasal Cannula 3.0 12/27/16 02:28 97 35 12/27/16 01:57 90 23 96 BiPAP/CPAP 35 12/27/16 00:00 BiPAP 12/26/16 23:50 36.5 102 20 162/83 (109) 95 BiPAP 12/26/16 22:10 94 35 12/26/16 19:06 88 20 94 Nasal Cannula 2.0 Physical Exam General Appearance: WD/WN, + mild distress Neck: supple, thyroid normal Respiratory/Chest: + respiratory distress, + decreased breath sounds, + accessory muscle use Cardiovascular: regular rate, rhythm, no murmur Abdomen: normal bowel sounds, non tender, soft Neurologic/Psychiatric: alert, oriented x 3 Skin: normal color, warm/dry Laboratory Results Last 24 Hours Test 12/26/16 17:16 12/26/16 20:52 12/27/16 12:38 12/27/16 13:18 Bedside Glucose 216 mg/dl 211 mg/dl 68 mg/dl 116 mg/dl Assessment and Plan 76yo female: acute/chronic hypoxic/hypercarbic respiratory failure, acute ankle fracture, tenative or repair 12/28 acute/chronic hypoxic/hypercarbic respiratory failure - 2nd to COPD exacerbation & pneumonia. attempting to wean to [place] O2. tapering steroids, 12/24 added formoterol and has improved with exception of encephalopathy sepsis 2nd to b/l pneumonia (lower lobes) - aspiration pneumonia unasyn and Zithromax for atypicals. 12/31 will be 10 day course will transition to augmentin ?dysphagia given the CT chest findings - speech consult does not feel pt is aspiration risk encephalopathy, infection seems to be improving ? if from steroids as toxic encephalopathy thrush - nystatin solution QID. resolved uncontrolled htn, adjust medical management, improved hypomagnesemia -replete. left ankle fracture - s/p splint. Ortho following. ORIF in the future once her respiratory status is improved and medically clear, she will always be at high risk for post op recovery given extent of lung disease uncontrolled T2DM -increased lantus 12/25, adjusted SSI 12/26, better control but still follow and adjust hyponatremia - resolved. DVT proph - lovenox. hold for OR PT, OT when able (to help with ROM, transfers, etc), will need placement short term, continue to consider hospice Continued [facility] stay due to: abnormal vital signs, ambulation difficulties, multiple IV medications needed, other (left ankle fracture) Discharge planning: uncertain
--- NOTE | 2016-12-27 17:23 | Progress Note ---
Progress Note Date of Service Dec 27, 2016. Progress Note Joyce Lizama is a 76 yo female who was admitted last week with acute on chronic respiratory failure. While walking to the car on her way to the hospital the patient twisted her ankle and also presented with a left ankle fracture. In addition, earlier that same day the patient fell off the toilet and hit her head. The patient's stay has been notable for pneumonia with sepsis , exacerbation of her baseline severe COPD with hypoxic and hypercarbic respiratory failure, and delirium with encephalopathy. When I met with her today, the patient was oriented to person, place and time (including day) and was able to relate her full medical history. Her PMH is significant for severe COPD with baseline oxygen dependence of 2 LPM, YIMI with BiPAP (02/09), HTN, hyperlipidemia, liver cirrhosis, type II DM (not usually insulin dependent, but requiring insulin since admission), anxiety, and remote tobacco abuse. The patient was resting comfortably on 2 LPM NC with oxygen saturations at 91% during our conversation. She occasionally became mildly SOB while talking. On exam, she had a RRR without heart murmur, slightly decreased BS, but no wheezes, rales or rhonchi. Her airway was a malampati 2 with good mouth opening and appropriate neck extension. She has upper dentures and a lower partial. I discussed anesthetic options with the patient, including spinal and peripheral nerve block, both under MAC and GA as a back-up. The patient was consented for multiple anesthetic options after full discussion and answering questions. Please ensure the patient remains NPO after midnight except for a sip of water with morning meds. Please ensure that the patient takes her schedule morning meds, especially her prednisone and diltiazem. Pleasure ensure patient is treated with all scheduled inhalers and is given her rescue inhalers for SOB or wheezing. Lovenox should remain on hold until after surgery to allow consideration for spinal as an anesthetic option. Please recheck CBC and chemistries in the morning. Please treat the patient with 1/2 her scheduled lantus dose tonight (7 units). Please call anesthesia with any questions or concerns. Jayla Maya MD, PhD Anesthesiologist
[2016-12-28] VITALS (14 sets, daily range): BP systolic 102–164; BP diastolic 56–91; PULSE 73–107; TEMP 36.5–36.9; O2SAT 92–97; Ht 162.6 cm; Wt 78.1 kg
[2016-12-28] MEDS ORDERED: NURSING VERBAL MED ORDER ONE ×3 (01:15→22:45)
[2016-12-28] MEDS: LEVALBUTEROL 0.63MG/3 ML NEB INH SCH ×4 (02:01→20:00)
[2016-12-28] MEDS: IPRATROPIUM BROMIDE NEB SOLN 0.02% 2.5 ML VIAL INH SCH ×4 (02:01→19:59)
[2016-12-28] MEDS: INSULIN ASPART 100 UNITS/ML 3 ML PEN SC SCH ×3 (05:28→18:20)
[2016-12-28] MEDS ORDERED: HYDROCORTISONE IV 100 MG in SYRINGE 0 ML IV SCH (06:00)
[2016-12-28] MEDS ORDERED: CEFAZOLIN IV 2,000 MG in DEXTROSE 5% 50ML 50 ML IV SCH (06:00)
[2016-12-28 06:38] LABS: HEMATOCRIT 38.9 % (37-47); MEAN CELL VOLUME 91.3 fL (80-100); MEAN CORPUSCULAR HEMOGLOBIN 28.9 pg (25-34); MEAN CORPUSCULAR HGB CONC 31.6 g/dl (32-36); MEAN PLATELET VOLUME 9.4 fL (7.4-10.4); PLATELET COUNT 257 K/uL (130-400); RED BLOOD COUNT 4.26 M/uL (4.2-5.4); WHITE BLOOD COUNT 12.33 K/uL (4.8-10.8)
[2016-12-28] MEDS ORDERED: ROPIVACAINE 0.5% 5 MG/ML 30 ML VIAL ONE (06:40)
[2016-12-28 07:23] LABS: BUN/CREATININE RATIO 30.4 (10-20); CALCIUM 8.6 mg/dl (8.5-10.1); CREATININE 0.79 mg/dl (0.60-1.20); POTASSIUM 3.7 mmol/L (3.5-5.1)
[2016-12-28] MEDS: FORMOTEROL FUMA NEBULIZER SOLN 20 MCG/2 ML VIAL INH SCH ×2 (07:51→19:59)
[2016-12-28] MEDS ORDERED: HYDROmorphone INJ 2 MG/ML SYR/VIAL IV PRN (08:15)
[2016-12-28] MEDS ORDERED: ONDANSETRON INJ 2 MG/ML 2 ML VIAL IV PRN (08:15)
[2016-12-28] MEDS ORDERED: ATROPINE SULFATE 0.1 MG/ML 5ML SYR IV PRN (08:15)
[2016-12-28] MEDS ORDERED: PHENYLEPHRINE 100MCG/ML 5ML SYR IV PRN (08:15)
[2016-12-28] MEDS ORDERED: EpHEDrine SULFATE INJ 50 MG/ML AMP IV PRN (08:15)
[2016-12-28] MEDS: AMOXICILLIN/CLAVULANATE TAB 875 MG TAB PO SCH ×2 (08:30→17:45)
[2016-12-28] MEDS: CHOLECALCIFEROL 1000 INTER.UNIT TAB PO SCH (09:00)
[2016-12-28] MEDS: FERROUS SULFATE 325 MG TAB PO SCH (09:00)
[2016-12-28] MEDS: NEPHROCAPS PO SCH (09:00)
[2016-12-28] MEDS: NIACIN 500 MG TAB IMMEDIATE RELEASE PO SCH (09:00)
[2016-12-28] MEDS: OMEGA-3 (PURIFIED FISH OIL) 1 GM CAP PO SCH (09:00)
[2016-12-28] MEDS: INSULIN GLARGINE SOLOSTAR 100 UNITS/ML 3 ML PEN SC SCH ×2 (09:00→22:02)
[2016-12-28] MEDS: FLUTICASONE/SALMETEROL 250/50 (ADVAIR) 14 PUFF/1 INHALER INH SCH ×2 (09:18→21:53)
[2016-12-28] MEDS: GUAIFENESIN 600 MG TABCR PO SCH ×2 (09:20→21:54)
[2016-12-28] MEDS: DILTIAZEM HCL 300 MG CAPCR PO SCH (09:21)
[2016-12-28] MEDS: NYSTATIN SUSP 500,000 U/5 ML UDC PO SCH ×4 (09:30→21:55)
[2016-12-28] MEDS: LACTOBACILLUS ACIDOPHILUS (FLORANEX) TAB PO SCH ×3 (09:30→17:45)
[2016-12-28] MEDS ORDERED: HYDROCORTISONE IV 50 MG in SYRINGE 0 ML IV ONE (11:00)
[2016-12-28] MEDS ORDERED: MIDAZOLAM HCL 1 MG/ML 2ML VIAL ONE (12:55)
[2016-12-28] MEDS ORDERED: KETAMINE HCL INJ 50 MG/ML 10 ML VIAL ONE (12:56)
[2016-12-28] MEDS ORDERED: SODIUM CHLORIDE 0.9% INJ 10 ML VIAL ONE (13:19)
[2016-12-28] MEDS ORDERED: BUPIVACAINE 0.5 % 5 MG/1 ML PF 10ML VIAL ONE (13:32)
--- NOTE | 2016-12-28 13:33 | History & Physical Bridge Note ---
H&P Re-Evaluation Bridge Note: I have examined the patient, reviewed the History & Physical and in the interval since the performance of the History & Physical I have noted the following changes of clinical significance: No changes noted
[2016-12-28] MEDS ORDERED: POVIDONE-IODINE OP SOLN 30 ML BTL ONE (14:08)
[2016-12-28] MEDS ORDERED: PROPOFOL IV EMULSION 10 MG/ML 20 ML VIAL IV ONE (14:45)
[2016-12-28] MEDS ORDERED: LIDOCAINE HCL 2% 2 ML VIAL (20MG/ML) ONE (14:45)
[2016-12-28] MEDS ORDERED: CEFAZOLIN SOD 1 GM VIAL ONE (14:45)
--- NOTE | 2016-12-28 15:03 | Progress Note ---
Subjective Date of Service: Dec 28, 2016. Subjective I did see this pt in the morning pre op, has comfort and no focal air loss but poor air movement, Problem List Medical Problems: (1) Ankle fracture, left Status: Acute (2) Chronic obstructive pulmonary disease Status: Acute (3) Concussion Status: Acute (4) Hypoxemia Status: Acute (5) Pneumonia Status: Acute Review of Systems Constitutional: + weakness, + fatigue, No fever, No chills Respiratory: + shortness of breath, + dyspnea on exertion, No cough, No sputum , No wheezing Cardiac: + chest pain, + edema Abdomen: No pain, No nausea, No vomiting Musculoskeletal: + joint pain, + muscle pain Female : No dysuria, No urinary frequency Psychiatric: No depression symptoms, No anxiety Objective Vital Signs Date Time Temp Pulse Resp B/P (MAP) Pulse Ox O2 Delivery O2 Flow Rate FiO2 12/28/16 02:02 81 97 35 12/28/16 02:01 81 20 97 BiPAP/CPAP 35 12/28/16 00:15 BiPAP 12/27/16 23:55 102 97 35 12/27/16 23:15 36.9 110 18 138/69 (92) 94 Nasal Cannula 2.0 12/27/16 19:39 101 20 94 Nasal Cannula 2.0 12/27/16 15:26 Nasal Cannula 2.0 12/27/16 15:20 36.9 89 20 156/79 (104) 91 Nasal Cannula 2.0 12/27/16 14:17 107 20 94 Nasal Cannula 3.0 12/27/16 08:30 Nasal Cannula 2.0 12/27/16 07:17 36.9 53 18 178/94 (122) 94 Nasal Cannula 3.0 12/27/16 07:13 102 20 90 Nasal Cannula 3.0 Physical Exam General Appearance: WD/WN, + mild distress Eyes: PERRL, EOMI Respiratory/Chest: chest non-tender, + decreased breath sounds, + accessory muscle use Cardiovascular: regular rate, rhythm, no murmur Abdomen: normal bowel sounds, non tender, soft Neurologic/Psychiatric: alert, oriented x 3 Laboratory Results Last 24 Hours Test 12/27/16 07:49 12/27/16 12:38 12/27/16 13:18 12/27/16 17:01 Bedside Glucose 196 mg/dl 68 mg/dl 116 mg/dl 229 mg/dl Test 12/27/16 20:43 12/27/16 22:19 12/27/16 22:41 Bedside Glucose 155 mg/dl 68 mg/dl 88 mg/dl Assessment and Plan 76yo female: acute/chronic hypoxic/hypercarbic respiratory failure, acute ankle fracture, trimalleolar ankle repair 12/28 acute/chronic hypoxic/hypercarbic respiratory failure - 2nd to COPD exacerbation & pneumonia. attempting to wean to [place] O2. tapering steroids, 12/24 added formoterol and has improved with exception of encephalopathy sepsis 2nd to b/l pneumonia (lower lobes) - aspiration pneumonia unasyn and Zithromax for atypicals. 12/31 will be 10 day course will transition to augmentin ?dysphagia given the CT chest findings - speech consult does not feel pt is aspiration risk encephalopathy, infection seems to be improving ? if from steroids as toxic encephalopathy thrush - nystatin solution QID. resolved uncontrolled htn, adjust medical management, improved hypomagnesemia -replete. left ankle fracture - s/p splint. Ortho ORIF 12/28 will look for rehab uncontrolled T2DM -increased lantus 12/25, adjusted SSI 12/26, better control but still follow and adjust hyponatremia - resolved. DVT proph - lovenox. hold for OR PT, OT when able (to help with ROM, transfers, etc), will need placement short term, continue to consider hospice Continued [facility] stay due to: abnormal vital signs, ambulation difficulties, multiple IV medications needed, other (left ankle fracture) Discharge planning: uncertain
--- NOTE | 2016-12-28 16:07 | DIAGNOSTIC IMAGING REPORT ---
INTRAOPERATIVE LEFT ANKLE 3 VIEWS CLINICAL HISTORY: Fracture status post internal fixation COMPARISON STUDY: No previous studies for comparison. FINDINGS: 11 seconds of fluoroscopic time was utilized. 3 intraoperative fluoroscopic spot images are provided for interpretation. There is a medial malleolar fracture was has been fixated with 2 cannulated screws. There is a distal fibular fracture was been fixated with a lateral metallic plate and 7 screws. Ankle mortise appears intact. IMPRESSION: Internally fixated fractures of the distal fibula and medial malleolus. Electronically signed by: Roosevelt Mejia M.D. 12/28/2016 4:06 PM Dictated Date/Time: 12/28/2016 4:05 PM
--- NOTE | 2016-12-28 16:42 | [facility] Operative Report ---
Operative Report Operative Date Dec 28, 2016. Pre-Operative Diagnosis Trimalleolar fracture dislocation left ankle Post-Operative Diagnosis Same Procedure(s) Performed Open Reduction Internal Fixation of medial and lateral malleolar Fracture of Left Ankle Surgeon Dr. Paredes Datawarehouse Developer Surgeon(s) Lauren Corral PA-C Estimated Blood Loss 15 cc Findings Mild comminution of fractures. Reasonable bone quality. Atrophic skin. Specimens none per surgeon Drains none Anesthesia spinal and block and sedation Complication(s) None Disposition Recovery Room / PACU Indications Patient's a 76 year old female with multiple medical problems including high blood pressure diabetes and severe COPD. She is status post multiple falls resulting in the after mentioned injury. This happened approximately 1 week ago. She's been admitted to the hospital and optimized medically including her severe COPD. Her leg is been elevated to monitor for swelling. She has some bruising but there is no break in the skin. Her skin is atrophic. She does not have any blisters. There is a positive wrinkle sign in the foot and ankle. Description of Procedure Informed consent was obtained. The patient identified as Joyce Humphrey. She identified the operative site as the left ankle. I marked with my initials. A preoperative surgical timeout was performed. Appropriate dose of IV antibiotics was given. She received stress dose of steroids. Positioned supine on the OR table with a tourniquet on the left thigh and a bump under the left hip the left leg was prepped and draped in the usual sterile fashion or scopic guidance was utilized throughout the procedure. intraoperative DVT prophylaxis with mechanical devices. Postoperatively mechanical devices and Lovenox. Bony prominences were inspected and padded her ankle was grossly unstable. Positive wrinkle sign. No blisters. Bruising on the medial side of the ankle. The limb was exsanguinated with the Esmarch tourniquet inflated turn 25 mmHg. A lateral incision was made about 12 cm in length. Dissection was performed down to subcutaneous tissues. It appeared to be a nerve branch was coursing just anterior to the peroneal tendons in the anterior soft tissue envelope deep. It was comminution at the anterior colliculus of the fibula. Periosteal exposure was performed the fracture was opened and cleaned of soft tissue and hematoma. It was anatomically reduced with a bone tenaculum and fixated with a 3.5 mm bicortical like screw. This was then neutralized with an 8 hole one third tubular locking plate. 3 unicortical locking screws distally and 3 bicortical locking screws proximally. On the medial side meticulous attention was performed to the soft tissues throughout the case. On the medial side a 6 cm incision was made. Veins were electrocauterized. She essentially had a thin layer of skin and no underlying subcutaneous fat. The fracture site was opened there was mild comminution anterior. The fracture site was cleaned out. A small bone fragment posterior was removed from the joint area. Posterior tibial tendon identified and intact. The fracture was reduced and fixated with the guidewires for the 3.5 cannulated screws. Guidewires were adjusted 1. Fluoroscopic guidance was utilized. Then overreamed inserted screws of approximately 34 and of 46 mm in length. This provided anatomic fixation and alignment which was secure. AP lateral and mortise views confirmed reduction the posterior malleolar fracture positioning of the hardware and reduction of the fractures and the ankle mortise. The cotton C RITCHIE ON test was performed and there was no pathological laxity of the syndesmosis and no need for syndesmotic screw. The tourniquet let down after 66 minutes of inflation meticulous hemostasis was performed. Irrigation with With Betadine lavage was performed. On the medial side there was no periosteum to close over the fracture. The skin was reapproximated using 4-0 nylon horizontal mattress and simple interrupted sutures taking care to protect the skin. On the lateral side was able used 3-0 Vicryl to approximate the deep tissues to cover over the plate protecting what looked like the nerve posteriorly. 4-0 Vicryl were used to reapproximate the dermal layer followed by melina on the skin. The leg was cleaned with wet and dry sponges Xeroform 4 x 4's ABDs cast padding and a posterior splint plus stirrup with the ankle in neutral position were applied. Patient was awakened from anesthesia without difficulty taken to the recovery room in stable condition. There were no specimens or complications. Counts were correct at the end the case. Blood loss was approximately 15 mL. At the conclusion the operation spoke to the patient's family and informed of my findings. Detailed postoperative instructions were given. The patient is a plan transferred to the PCU because of her comorbid medical conditions. Heart on Lovenox in the morning. She will maintain nonweightbearing for period of approximate 6 weeks. I attest to the content of the Intraoperative Record and any orders documented therein. Any exceptions are noted below.
[2016-12-28] MEDS ORDERED: TRAMADOL HCL 50 MG TAB PO PRN (16:45)
[2016-12-28] MEDS ORDERED: BISACODYL 10 MG SUPP PR PRN (16:45)
[2016-12-28] MEDS ORDERED: HYDROCODONE/ACETAMOPHEN 5/325MG TAB PO PRN (16:45)
[2016-12-28] MEDS ORDERED: MAGNESIUM HYDROXIDE SUSP 30 ML UDC PO PRN (16:45)
--- NOTE | 2016-12-28 17:16 | Anesthesiology Progress Note ---
Anesthesia Post Op Note Date & Time Dec 28, 2016 at 17:16 Vital Signs Pain Intensity: 0 Vital Signs Past 12 Hours Date Time Temp Pulse Resp B/P (MAP) Pulse Ox O2 Delivery O2 Flow Rate FiO2 12/28/16 17:00 102 24 162/79 100 Oxymask 10 12/28/16 16:50 91 24 167/100 100 Oxymask 10 12/28/16 16:40 36.8 91 24 161/80 100 Oxymask 10 12/28/16 08:00 Nasal Cannula 2.0 12/28/16 07:53 84 20 94 Nasal Cannula 2.0 12/28/16 07:22 36.7 92 18 164/91 (115) 92 3.0 Notes Mental Status: alert / awake / arousable, participated in evaluation Pt Amnestic to Procedure: Yes Nausea / Vomiting: adequately controlled Pain: adequately controlled Airway Patency, RR, SpO2: stable & adequate BP & HR: stable & adequate, see Notes Hydration State: stable & adequate Neuraxial Anesthesia: was administered, sensory block is resolving Anesthetic Complications: no major complications apparent The patient is awake and comfortable. Her BP and HR are at her baseline.
[2016-12-28] MEDS: CEFAZOLIN IV 1,000 MG in DEXTROSE 5% 50ML 50 ML IV SCH (19:15)
[2016-12-28] MEDS: POTASSIUM CHLORIDE INJ 10 MEQ in SODIUM CHLORIDE 0.9% 1000ML 1,000 ML IV SCH (19:15)
[2016-12-28] MEDS: DOCUSATE SODIUM 100 MG CAP PO SCH (21:00)
[2016-12-28] MEDS ORDERED: ALPRAZOLAM 0.25 MG TAB PO SCH (23:15)
[2016-12-29] VITALS (15 sets, daily range): BP systolic 128–161; BP diastolic 62–85; PULSE 79–106; TEMP 35.8–37; O2SAT 91–97
[2016-12-29] MEDS: IPRATROPIUM BROMIDE NEB SOLN 0.02% 2.5 ML VIAL INH SCH ×4 (02:27→19:47)
[2016-12-29] MEDS: LEVALBUTEROL 0.63MG/3 ML NEB INH SCH ×4 (02:27→19:47)
[2016-12-29] MEDS ORDERED: NURSING VERBAL MED ORDER ONE (02:30)
[2016-12-29] MEDS: CEFAZOLIN IV 1,000 MG in DEXTROSE 5% 50ML 50 ML IV SCH (04:44)
[2016-12-29] MEDS: POTASSIUM CHLORIDE INJ 10 MEQ in SODIUM CHLORIDE 0.9% 1000ML 1,000 ML IV SCH (04:49)
[2016-12-29 07:17] LABS: HEMATOCRIT 37.2 % (37-47); MEAN CELL VOLUME 92.5 fL (80-100); MEAN CORPUSCULAR HEMOGLOBIN 28.9 pg (25-34); MEAN CORPUSCULAR HGB CONC 31.2 g/dl (32-36); MEAN PLATELET VOLUME 9.7 fL (7.4-10.4); PLATELET COUNT 266 K/uL (130-400); RED BLOOD COUNT 4.02 M/uL (4.2-5.4); WHITE BLOOD COUNT 17.74 K/uL (4.8-10.8)
[2016-12-29] MEDS: FORMOTEROL FUMA NEBULIZER SOLN 20 MCG/2 ML VIAL INH SCH ×2 (07:28→19:47)
[2016-12-29 08:01] LABS: BUN/CREATININE RATIO 29.8 (10-20); CALCIUM 8.4 mg/dl (8.5-10.1); CREATININE 0.82 mg/dl (0.60-1.20); POTASSIUM 3.6 mmol/L (3.5-5.1)
[2016-12-29] MEDS: INSULIN ASPART 100 UNITS/ML 3 ML PEN SC SCH ×5 (08:27→21:44)
[2016-12-29] MEDS: [UNRECOGNIZED DRUG - OTHER] PO SCH (08:27)
[2016-12-29] MEDS: NYSTATIN SUSP 500,000 U/5 ML UDC PO SCH ×4 (08:28→21:40)
[2016-12-29] MEDS: CHOLECALCIFEROL 1000 INTER.UNIT TAB PO SCH (08:29)
[2016-12-29] MEDS: DILTIAZEM HCL 300 MG CAPCR PO SCH (08:29)
--- NOTE | 2016-12-29 08:29 | [facility] Operative Report ---
Operative Report Operative Date Dec 29, 2016. Pre-Operative Diagnosis Trimalleolar fracture dislocation left ankle Post-Operative Diagnosis Same Procedure(s) Performed Open Reduction Internal Fixation of medial and lateral malleolar Fracture of Left Ankle Surgeon Dr. Paredes Telecommunications Repairer Surgeon(s) Lauren Corral PA-C Estimated Blood Loss 15 cc Findings bimalleolar ankle fracture left Specimens none per surgeon Drains none Anesthesia spinal and block and sedation Complication(s) None Disposition Recovery Room / PACU (stable) Indications Patient is a 76 year old female, s/p fall, injuring left ankle. She was admitted after the fall for shortness of breath and exacerbation of COPD. x- rays found to have ankle fracture/dislocation. Surgery recommended. Risks/ complications discussed, informed consent obtained. She was cleared for surgery by medicine and pulmonology prior to surgery. Description of Procedure Patient was taken to the operating room, placed under spinal anesthesia, given IV Ancef 2gm for surgical prophylaxis. Time out performed, prepped and draped in routine sterile fashion. I was present the entire case, please see Dr. Paredes's operative report for further detail. Patient was awakened and transferred to the recovery room in stable condition. I attest to the content of the Intraoperative Record and any orders documented therein. Any exceptions are noted below.
[2016-12-29] MEDS: NIACIN 500 MG TAB IMMEDIATE RELEASE PO SCH (08:30)
[2016-12-29] MEDS: OMEGA-3 (PURIFIED FISH OIL) 1 GM CAP PO SCH (08:30)
[2016-12-29] MEDS: GUAIFENESIN 600 MG TABCR PO SCH ×2 (08:31→21:40)
[2016-12-29] MEDS: FERROUS SULFATE 325 MG TAB PO SCH (08:31)
[2016-12-29] MEDS: NEPHROCAPS PO SCH (08:31)
[2016-12-29] MEDS: LACTOBACILLUS ACIDOPHILUS (FLORANEX) TAB PO SCH ×4 (08:32→17:45)
[2016-12-29] MEDS: AMOXICILLIN/CLAVULANATE TAB 875 MG TAB PO SCH ×3 (08:33→17:45)
[2016-12-29] MEDS: FLUTICASONE/SALMETEROL 250/50 (ADVAIR) 14 PUFF/1 INHALER INH SCH ×2 (08:33→21:36)
[2016-12-29] MEDS: DOCUSATE SODIUM 100 MG CAP PO SCH ×2 (08:34→21:40)
[2016-12-29] MEDS ORDERED: HYDROCORTISONE IV 50 MG in SYRINGE 0 ML IV ONE (08:45)
[2016-12-29] MEDS ORDERED: [UNRECOGNIZED DRUG - OTHER] PO SCH (09:00)
--- NOTE | 2016-12-29 09:21 | Orthopedic Progress Note ---
Orthopedic Progress Note Date of Service Dec 29, 2016. Subjective Post OP Day: 1 Reports: feeling well, SOB (normal), pain controlled w PO medications, Denies: complaints, chest pain, nausea / vomiting, light headedness, calf pain Objective calves soft nontender, N/V intact, splint C/D/I, capillary refill less than 2 sec., dressing C/D/I, A&O x3, toes mobile Left foot elevated on pillows. Ice in place. Date Time Temp Pulse Resp B/P (MAP) Pulse Ox O2 Delivery O2 Flow Rate FiO2 12/29/16 07:30 91 25 94 Nasal Cannula 2.0 12/29/16 07:17 36.8 89 18 148/78 (101) 92 Nasal Cannula 1.0 12/29/16 04:00 92 Nasal Cannula 2.0 35 12/29/16 03:20 35.8 97 18 161/85 (110) 97 BiPAP 12/29/16 02:29 99 25 95 BiPAP/CPAP 35 12/29/16 02:28 99 95 35 12/28/16 23:59 95 BiPAP 35 12/28/16 23:10 36.5 86 18 148/72 (97) 95 BiPAP 12/28/16 22:14 107 93 35 12/28/16 20:02 73 16 92 Nasal Cannula 2.0 12/28/16 20:00 92 Nasal Cannula 2.0 12/28/16 19:30 102 20 137/80 (99) 92 Nasal Cannula 2.0 12/28/16 19:00 36.8 102 20 157/74 (101) 92 Nasal Cannula 2.0 12/28/16 18:45 36.9 98 20 112/62 (79) 94 Nasal Cannula 2.0 12/28/16 18:30 36.9 92 18 102/56 (71) 92 Nasal Cannula 2.0 12/28/16 18:15 36.9 90 18 103/78 (86) 93 Nasal Cannula 2.0 12/28/16 17:20 102 24 166/83 95 Nasal Cannula 2 12/28/16 17:10 37.8 102 24 165/74 95 Nasal Cannula 2 12/28/16 17:00 102 24 162/79 100 Oxymask 10 12/28/16 16:50 91 24 167/100 100 Oxymask 10 12/28/16 16:40 36.8 91 24 161/80 100 Oxymask 10 Laboratory Results 24 Hours: Test 12/29/16 06:45 Hematocrit 37.2 % Hemoglobin 11.6 g/dL Assessment & Plan Assessment: POD 1 - ORIF left ankle fracture Plan: Doing well, diet as ordered Needs to keep splint on at all times. Ice to right ankle as needed for pain/swelling Elevate right ankle as needed for swelling. NWB LLE at all times. Lovenox to start this morning for DVT prophylaxis. Ordered Vitamin A to aid in healing x 10 days. Hydrocortisone ordered this morning for stress dosing. PT/OT as ordered. SS for discharge plans. Patient states requested [facility] at discharge Will discuss findings with Dr. Paredes Please call with questions. Will continue to follow. Discharge Planning Discharge Planning: long term facility Pain Management: Lortab, Ultram DVT Prophylaxis: Lovenox
[2016-12-29] MEDS ORDERED: [UNRECOGNIZED DRUG - CODE] PO (09:22)
--- NOTE | 2016-12-29 10:52 | Anesthesiology Progress Note ---
Anesthesia Post Op Note Date & Time Dec 29, 2016 at 10:52 Vital Signs Vital Signs Past 12 Hours Date Time Temp Pulse Resp B/P (MAP) Pulse Ox O2 Delivery O2 Flow Rate FiO2 12/29/16 08:00 Room Air 12/29/16 07:30 91 25 94 Nasal Cannula 2.0 12/29/16 07:17 36.8 89 18 148/78 (101) 92 Nasal Cannula 1.0 12/29/16 04:00 92 Nasal Cannula 2.0 35 12/29/16 03:20 35.8 97 18 161/85 (110) 97 BiPAP 12/29/16 02:29 99 25 95 BiPAP/CPAP 35 12/29/16 02:28 99 95 35 12/28/16 23:59 95 BiPAP 35 12/28/16 23:10 36.5 86 18 148/72 (97) 95 BiPAP Notes Mental Status: alert / awake / arousable, participated in evaluation Pt Amnestic to Procedure: Yes Nausea / Vomiting: adequately controlled Pain: adequately controlled Airway Patency, RR, SpO2: stable & adequate BP & HR: stable & adequate Hydration State: stable & adequate Neuraxial Anesthesia: was administered, sensory block resolved Anesthetic Complications: no major complications apparent
[2016-12-29] MEDS ORDERED: BISACODYL 5 MG TABEC PO ONE (16:45)
--- NOTE | 2016-12-29 18:36 | Progress Note ---
Subjective Date of Service: Dec 29, 2016. Subjective Pt evaluation today including: conversation w/ patient, conversation w/ family ( at bedside), physical exam, chart review, lab review, review of inpatient medication list Pain: denies any during the visit PO Intake: normal Voiding: beavers catheter in place tele with NSR and occasional sinus tach with activity she denies any significant dyspnea today or cough denies chest pain no bowel movement in some time but is passing flatus Problem List Medical Problems: (1) Ankle fracture, left Status: Acute (2) Chronic obstructive pulmonary disease Status: Acute (3) Concussion Status: Acute (4) Hypoxemia Status: Acute (5) Pneumonia Status: Acute Review of Systems Constitutional: No fever, No chills Cardiac: No chest pain, No orthopnea Abdomen: + constipation, No pain Psychiatric: + problem reported (confusion markedly improved per ) Objective Vital Signs Date Time Temp Pulse Resp B/P (MAP) Pulse Ox O2 Delivery O2 Flow Rate FiO2 12/29/16 16:00 Room Air 12/29/16 14:26 79 20 95 Nasal Cannula 2.0 12/29/16 13:30 98 91 12/29/16 12:00 Room Air 12/29/16 11:34 36.8 92 18 138/78 (98) 93 Nasal Cannula 2.0 12/29/16 08:00 Room Air 12/29/16 07:30 91 25 94 Nasal Cannula 2.0 12/29/16 07:17 36.8 89 18 148/78 (101) 92 Nasal Cannula 1.0 12/29/16 04:00 92 Nasal Cannula 2.0 35 12/29/16 03:20 35.8 97 18 161/85 (110) 97 BiPAP 12/29/16 02:29 99 25 95 BiPAP/CPAP 35 12/29/16 02:28 99 95 35 12/28/16 23:59 95 BiPAP 35 12/28/16 23:10 36.5 86 18 148/72 (97) 95 BiPAP 12/28/16 22:14 107 93 35 12/28/16 20:02 73 16 92 Nasal Cannula 2.0 12/28/16 20:00 92 Nasal Cannula 2.0 12/28/16 19:30 102 20 137/80 (99) 92 Nasal Cannula 2.0 12/28/16 19:00 36.8 102 20 157/74 (101) 92 Nasal Cannula 2.0 12/28/16 18:45 36.9 98 20 112/62 (79) 94 Nasal Cannula 2.0 12/28/16 18:30 36.9 92 18 102/56 (71) 92 Nasal Cannula 2.0 Physical Exam General Appearance: no apparent distress ENT: pharynx normal (thrush resolved) Neck: no JVD Respiratory/Chest: no respiratory distress, no accessory muscle use, + decreased breath sounds, + wheezing (minimal) Cardiovascular: no gallop, no murmur, + tachycardia Abdomen: normal bowel sounds, non tender, soft, no organomegaly, + distended ( mild) Extremities: no pedal edema, + pertinent finding (left ankle/foot in large splint) Neurologic/Psychiatric: alert, oriented x 3 Skin: + pertinent finding (cap refill both feet < 2 seconds) Laboratory Results Last 24 Hours Test 12/28/16 20:57 12/29/16 00:29 12/29/16 06:45 12/29/16 06:54 Bedside Glucose 229 mg/dl 121 mg/dl 117 mg/dl White Blood Count 17.74 K/uL Red Blood Count 4.02 M/uL Hemoglobin 11.6 g/dL Hematocrit 37.2 % Mean Corpuscular Volume 92.5 fL Mean Corpuscular Hemoglobin 28.9 pg Mean Corpuscular Hemoglobin Concent 31.2 g/dl RDW Standard Deviation 46.4 fL RDW Coefficient of Variation 13.7 % Platelet Count 266 K/uL Mean Platelet Volume 9.7 fL Sodium Level 139 mmol/L Potassium Level 3.6 mmol/L Chloride Level 96 mmol/L Carbon Dioxide Level 41 mmol/L Anion Gap 2.0 mmol/L Blood Urea Nitrogen 24 mg/dl Creatinine 0.82 mg/dl Est Creatinine Clear Calc Drug Dose 59.0 ml/min Estimated GFR () 80.6 Estimated GFR (Non- 69.5 BUN/Creatinine Ratio 29.8 Random Glucose 126 mg/dl Calcium Level 8.4 mg/dl Chemistry Specimen Hemolysis Test 12/29/16 10:55 12/29/16 16:54 Bedside Glucose 123 mg/dl 247 mg/dl Assessment and Plan 76yo female: 1. acute/chronic hypoxic/hypercarbic respiratory failure - 2nd to COPD exacerbation & pneumonia. Acute component resolved. 2. sepsis 2nd to b/l pneumonia (lower lobes) - likely aspiration pneumonia given the extent of mucous/secretions in the small/large airways. Day #8 of abx; complete 10 days in total. 3. COPD with exacerbation - resolved. On steroid taper; currently 40mg daily. Wean to 30mg in am. 4. encephalopathy - likely metabolic from #2, possibly toxic from previous high doses of steroids - resolved. 5. thrush - nystatin solution QID - resolved. 6. DVT proph - lovenox. 7. constipation - miralax daily. Colace BID. Dulcolax tab x 1 now. 8. left ankle fracture - POD #1 s/p ORIF - appreciate orthopedic assistance. NWB to LLE. PT, OT - will need rehab. 9. T2DM - acceptable control with lantus/novolog. 10. HTN - continue home meds; controlled. 11. hyponatremia - resolved. d/c telemetry transfer to med/surg dispo - SNF for rehab updated Continued [facility] stay due to: ambulation difficulties, multiple IV medications needed, other (left ankle fracture) Discharge planning: half-way facility
--- NOTE | 2016-12-29 18:52 | PROGRESS NOTE ---
DATE: 12/29/2016 SUBJECTIVE: She is resting comfortably in bed. She has been transferred to the floor. No problems are reported. She seems to be breathing well. The ankle pain is well controlled. PHYSICAL EXAMINATION: Afebrile, vital signs are stable. She is on 2 liters of O2, satting in the mid 90s. On exam, her foot is warm. I do not palpate a dorsalis pedis pulse. She can wiggle her toes and reports normal sensation. There is not significant swelling. DATA: Urine output is adequate. Her white count was elevated, likely secondary to stress and steroids. Hemoglobin 11, hematocrit is 37. Her PRP is noted. Her CO2 is elevated. IMPRESSION: Chronic obstructive pulmonary disease, on steroids; pneumonia, diabetes, high blood pressure, trimalleolar fracture of the left ankle. PLAN: Will do a high dose vitamin A 20,000 units daily for 10 days to counteract the wound-healing effects of the steroids. Elevate the leg and will monitor the wound. Nonweightbearing on the left lower extremity. She would be suitable for group home facility or care home. She will not be able to bear weight on the leg for at least 6 weeks postoperatively. Lovenox for DVT prophylaxis. Lovenox was previously held and is restarted.
[2016-12-29] MEDS: INSULIN GLARGINE SOLOSTAR 100 UNITS/ML 3 ML PEN SC SCH (21:45)
[2016-12-30] VITALS (7 sets, daily range): BP systolic 131–150; BP diastolic 70–78; PULSE 79–102; TEMP 36.8–37.1; O2SAT 90–97
[2016-12-30] MEDS: IPRATROPIUM BROMIDE NEB SOLN 0.02% 2.5 ML VIAL INH SCH ×4 (02:01→20:04)
[2016-12-30] MEDS: LEVALBUTEROL 0.63MG/3 ML NEB INH SCH ×4 (02:01→20:05)
[2016-12-30] MEDS: FORMOTEROL FUMA NEBULIZER SOLN 20 MCG/2 ML VIAL INH SCH ×2 (07:46→20:18)
[2016-12-30 07:56] LABS: BUN/CREATININE RATIO 30.1 (10-20); CALCIUM 8.7 mg/dl (8.5-10.1); CREATININE 0.68 mg/dl (0.60-1.20); POTASSIUM 3.4 mmol/L (3.5-5.1)
--- NOTE | 2016-12-30 08:49 | Orthopedic Progress Note ---
Orthopedic Progress Note Date of Service Dec 30, 2016. Subjective Post OP Day: 2 Reports: feeling well, SOB, pain controlled w PO medications, Denies: complaints , chest pain, nausea / vomiting, light headedness, calf pain, using [employer]GER Objective N/V intact, splint C/D/I, capillary refill less than 2 sec., dressing C/D/I, A& O x3, toes mobile, CMS intact Patient states that she is doing well and ready to be discharge to [facility]. Date Time Temp Pulse Resp B/P (MAP) Pulse Ox O2 Delivery O2 Flow Rate FiO2 12/30/16 08:04 37.0 94 22 146/73 (97) 91 Nasal Cannula 2.0 12/30/16 07:47 87 20 92 Nasal Cannula 2.0 12/30/16 02:01 79 25 95 BiPAP/CPAP 35 12/30/16 00:23 BiPAP 12/29/16 23:00 37.0 93 18 137/71 (93) 97 BiPAP 12/29/16 22:20 104 97 35 12/29/16 22:00 105 128/62 (84) 92 Nasal Cannula 2.0 12/29/16 19:47 80 20 95 Nasal Cannula 2.0 12/29/16 19:00 36.9 96 16 152/73 (99) 93 Nasal Cannula 2.0 12/29/16 17:45 92 Nasal Cannula 2.0 12/29/16 17:45 37.0 106 26 149/75 (99) 92 Nasal Cannula 2.0 12/29/16 16:00 Room Air 12/29/16 14:26 79 20 95 Nasal Cannula 2.0 12/29/16 13:30 98 91 12/29/16 12:00 Room Air 12/29/16 11:34 36.8 92 18 138/78 (98) 93 Nasal Cannula 2.0 Assessment & Plan Assessment: POD 2 - ORIF left ankle fracture Plan: Doing well, diet as ordered Needs to keep splint on at all times. Ice to right ankle as needed for pain/swelling Elevate right ankle as needed for swelling. NWB LLE at all times. Lovenox to start this morning for DVT prophylaxis. Ordered Vitamin A to aid in healing x 10 days. Hydrocortisone ordered this morning for stress dosing. PT/OT as ordered. SS for discharge plans. Patient states requested [facility] at discharge Will discuss findings with Dr. Paredes Please call with questions. Will continue to follow. Discharge Planning [facility] Pain Management: Lortab, Ultram DVT Prophylaxis: Lovenox
[2016-12-30] MEDS: AMOXICILLIN/CLAVULANATE TAB 875 MG TAB PO SCH ×2 (09:41→17:42)
[2016-12-30] MEDS: LACTOBACILLUS ACIDOPHILUS (FLORANEX) TAB PO SCH ×3 (09:42→17:43)
[2016-12-30] MEDS: FLUTICASONE/SALMETEROL 250/50 (ADVAIR) 14 PUFF/1 INHALER INH SCH ×2 (09:42→21:59)
[2016-12-30] MEDS: DILTIAZEM HCL 300 MG CAPCR PO SCH (09:43)
[2016-12-30] MEDS: DOCUSATE SODIUM 100 MG CAP PO SCH ×2 (09:43→22:00)
[2016-12-30] MEDS: FERROUS SULFATE 325 MG TAB PO SCH (09:43)
[2016-12-30] MEDS: NEPHROCAPS PO SCH (09:43)
[2016-12-30] MEDS: [UNRECOGNIZED DRUG - OTHER] PO SCH (09:44)
[2016-12-30] MEDS: NIACIN 500 MG TAB IMMEDIATE RELEASE PO SCH (09:44)
[2016-12-30] MEDS: OMEGA-3 (PURIFIED FISH OIL) 1 GM CAP PO SCH (09:44)
[2016-12-30] MEDS: CHOLECALCIFEROL 1000 INTER.UNIT TAB PO SCH (09:45)
[2016-12-30] MEDS: ENOXAPARIN 40 MG/0.4 ML SYR SQ SCH (09:45)
[2016-12-30] MEDS: GUAIFENESIN 600 MG TABCR PO SCH ×2 (09:46→22:00)
[2016-12-30] MEDS: NYSTATIN SUSP 500,000 U/5 ML UDC PO SCH ×4 (09:46→22:01)
[2016-12-30] MEDS: INSULIN ASPART 100 UNITS/ML 3 ML PEN SC SCH ×4 (09:55→22:06)
[2016-12-30] MEDS: POLYETHYLENE (MIRALAX) 17 GM PACK PO SCH (09:55)
[2016-12-30] MEDS: SENNA 8.6 MG TAB PO SCH (10:00)
--- NOTE | 2016-12-30 16:33 | Orthopedic Progress Note ---
Orthopedic Progress Note Date of Service Dec 30, 2016. Subjective Post OP Day: 2 Reports: feeling well, pain controlled w PO medications, Denies: complaints, chest pain, SOB, nausea / vomiting, light headedness, calf pain Objective calves soft nontender, N/V intact, splint C/D/I (removed and reapplied today), capillary refill less than 2 sec., incision C/D/I, A&O x3, toes mobile Tolerates gentle ankle ROM. minimal distal edema, sensation normal. Distal pulses palpable Date Time Temp Pulse Resp B/P (MAP) Pulse Ox O2 Delivery O2 Flow Rate FiO2 12/30/16 15:09 37.1 100 18 131/78 (95) 90 Nasal Cannula 1.5 12/30/16 11:09 36.9 97 22 150/70 (96) 93 Nasal Cannula 2.0 12/30/16 08:04 37.0 94 22 146/73 (97) 91 Nasal Cannula 2.0 12/30/16 07:47 87 20 92 Nasal Cannula 2.0 12/30/16 07:00 92 Nasal Cannula 2.0 12/30/16 02:01 79 25 95 BiPAP/CPAP 35 12/30/16 00:23 BiPAP 12/29/16 23:00 37.0 93 18 137/71 (93) 97 BiPAP 12/29/16 22:20 104 97 35 12/29/16 22:00 105 128/62 (84) 92 Nasal Cannula 2.0 12/29/16 19:47 80 20 95 Nasal Cannula 2.0 12/29/16 19:00 36.9 96 16 152/73 (99) 93 Nasal Cannula 2.0 12/29/16 17:45 92 Nasal Cannula 2.0 12/29/16 17:45 37.0 106 26 149/75 (99) 92 Nasal Cannula 2.0 Assessment & Plan Assessment: POD 2 - ORIF left ankle fracture Plan: Needs to keep splint on at all times. Ice to right ankle as needed for pain/swelling Elevate right ankle as needed for swelling. Encouraged NWB LLE at all times. Lovenox for DVT prophylaxis. Ordered Vitamin A to aid in healing x 10 days. PT/OT as ordered. for discharge plans. Patient states requested [facility] at discharge Dr. Paredes present for visit today. [place] pending, potential discharge tomorrow. OK from ortho standpoint for discharge when medically stable. Follow up as scheduled next week. Discharge Planning Discharge Planning[facility] Pain Management: Lortab, Ultram DVT Prophylaxis: Lovenox
[2016-12-30] MEDS: INSULIN GLARGINE SOLOSTAR 100 UNITS/ML 3 ML PEN SC SCH (22:06)
--- NOTE | 2016-12-30 23:58 | Progress Note ---
Subjective Date of Service: Dec 30, 2016. Subjective Pt evaluation today including: conversation w/ patient, conversation w/ family ( at bedside), physical exam, chart review, lab review, review of inpatient medication list Pain: none voiced during the visit PO Intake: improving Voiding: beavers catheter in place no major complaints feels "pretty good" SIMS is at baseline has ambulated in the room today w/ assistance Problem List Medical Problems: (1) Ankle fracture, left Status: Acute (2) Chronic obstructive pulmonary disease Status: Acute (3) Concussion Status: Acute (4) Hypoxemia Status: Acute (5) Pneumonia Status: Acute Review of Systems Constitutional: No fever Respiratory: No cough, No sputum Cardiac: No chest pain, No orthopnea Abdomen: No pain, No constipation Objective Vital Signs Date Time Temp Pulse Resp B/P (MAP) Pulse Ox O2 Delivery O2 Flow Rate FiO2 12/30/16 15:15 Nasal Cannula 2.0 35 12/30/16 15:09 37.1 100 18 131/78 (95) 90 Nasal Cannula 1.5 12/30/16 11:09 36.9 97 22 150/70 (96) 93 Nasal Cannula 2.0 12/30/16 08:04 37.0 94 22 146/73 (97) 91 Nasal Cannula 2.0 12/30/16 07:47 87 20 92 Nasal Cannula 2.0 12/30/16 07:00 92 Nasal Cannula 2.0 12/30/16 02:01 79 25 95 BiPAP/CPAP 35 12/30/16 00:23 BiPAP 12/29/16 23:00 37.0 93 18 137/71 (93) 97 BiPAP 12/29/16 22:20 104 97 35 12/29/16 22:00 105 128/62 (84) 92 Nasal Cannula 2.0 Physical Exam General Appearance: no apparent distress ENT: pharynx normal Neck: no JVD Respiratory/Chest: lungs clear, no respiratory distress, no accessory muscle use, + pertinent finding (airation fair) Cardiovascular: no gallop, + tachycardia Abdomen: normal bowel sounds, non tender, soft, no organomegaly Extremities: no pedal edema (right foot), + pertinent finding (left leg/ankle/ foot in splint; cap refill left foot <2 seconds ) Neurologic/Psychiatric: alert, oriented x 3 Laboratory Results Last 24 Hours Test 12/29/16 20:56 12/30/16 06:24 12/30/16 07:52 12/30/16 12:12 Bedside Glucose 132 mg/dl 85 mg/dl 142 mg/dl Sodium Level 138 mmol/L Potassium Level 3.4 mmol/L Chloride Level 96 mmol/L Carbon Dioxide Level 38 mmol/L Anion Gap 4.0 mmol/L Blood Urea Nitrogen 21 mg/dl Creatinine 0.68 mg/dl Est Creatinine Clear Calc Drug Dose 71.2 ml/min Estimated GFR () 98.5 Estimated GFR (Non- 85.0 BUN/Creatinine Ratio 30.1 Random Glucose 100 mg/dl Calcium Level 8.7 mg/dl Test 12/30/16 17:01 Bedside Glucose 180 mg/dl Assessment and Plan 76yo female: 1. acute/chronic hypoxic/hypercarbic respiratory failure - 2nd to COPD exacerbation & pneumonia. Acute component resolved. 2. sepsis 2nd to b/l pneumonia (lower lobes) - likely aspiration pneumonia - Day #9 of abx; complete 10 days in total. 3. COPD with exacerbation - resolved. On steroid taper; currently 30mg daily. Wean to 20mg in 2-3 days. 4. encephalopathy - resolved. 5. thrush - nystatin solution QID - resolved. 6. DVT proph - lovenox. 7. constipation - miralax daily. Colace BID. Improved. 8. left ankle fracture - POD #2 s/p ORIF - appreciate orthopedic assistance. NWB to LLE. PT, OT - will need rehab. 9. T2DM - acceptable control with lantus/novolog. 10. HTN - continue home meds; controlled. 11. hyponatremia - resolved. dispo - SNF for rehab auth pending d/c nimesh updated Continued [facility] stay due to: ambulation difficulties, other (left ankle fracture ) [facility]charge planning[facility] facility
[2016-12-31] VITALS (7 sets, daily range): BP systolic 146–150; BP diastolic 67–75; PULSE 84–100; TEMP 36.9; O2SAT 93–96
[2016-12-31] MEDS: IPRATROPIUM BROMIDE NEB SOLN 0.02% 2.5 ML VIAL INH SCH ×3 (01:57→14:10)
[2016-12-31] MEDS: LEVALBUTEROL 0.63MG/3 ML NEB INH SCH ×3 (01:57→14:10)
[2016-12-31 07:15] LABS: BASO % 0.1 %; BASO ABS # 0.01 K/uL (0-0.2); COMPLETE YES; EOS % 0.8 %; HEMATOCRIT 34.1 % (37-47); IG% 0.6 %; LYMPH % 15.8 %; LYMPH ABS # 2.26 K/uL (1.2-3.4); MEAN CELL VOLUME 92.9 fL (80-100); MEAN CORPUSCULAR HEMOGLOBIN 28.9 pg (25-34); MEAN CORPUSCULAR HGB CONC 31.1 g/dl (32-36); MEAN PLATELET VOLUME 9.6 fL (7.4-10.4); MONO % 10.5 %; NEUT % 72.2 %; PLATELET COUNT 248 K/uL (130-400); RED BLOOD COUNT 3.67 M/uL (4.2-5.4); WHITE BLOOD COUNT 14.33 K/uL (4.8-10.8)
[2016-12-31 07:41] LABS: CALCIUM 8.5 mg/dl (8.5-10.1); CREATININE 0.7 mg/dl (0.60-1.20); MAGNESIUM 1.8 mg/dl (1.8-2.4); POTASSIUM 3.6 mmol/L (3.5-5.1)
[2016-12-31] MEDS: FORMOTEROL FUMA NEBULIZER SOLN 20 MCG/2 ML VIAL INH SCH (07:41)
[2016-12-31] MEDS: LACTOBACILLUS ACIDOPHILUS (FLORANEX) TAB PO SCH ×2 (09:08→13:11)
[2016-12-31] MEDS: FLUTICASONE/SALMETEROL 250/50 (ADVAIR) 14 PUFF/1 INHALER INH SCH (09:09)
[2016-12-31] MEDS: FERROUS SULFATE 325 MG TAB PO SCH (09:10)
[2016-12-31] MEDS: DOCUSATE SODIUM 100 MG CAP PO SCH (09:10)
[2016-12-31] MEDS: GUAIFENESIN 600 MG TABCR PO SCH (09:11)
[2016-12-31] MEDS: NYSTATIN SUSP 500,000 U/5 ML UDC PO SCH ×2 (09:11→13:13)
[2016-12-31] MEDS: NIACIN 500 MG TAB IMMEDIATE RELEASE PO SCH (09:12)
[2016-12-31] MEDS: OMEGA-3 (PURIFIED FISH OIL) 1 GM CAP PO SCH (09:13)
[2016-12-31] MEDS: NEPHROCAPS PO SCH (09:14)
[2016-12-31] MEDS: SENNA 8.6 MG TAB PO SCH (09:14)
[2016-12-31] MEDS: AMOXICILLIN/CLAVULANATE TAB 875 MG TAB PO SCH (09:15)
[2016-12-31] MEDS: CHOLECALCIFEROL 1000 INTER.UNIT TAB PO SCH (09:17)
[2016-12-31] MEDS: [UNRECOGNIZED DRUG - OTHER] PO SCH (09:17)
[2016-12-31] MEDS: POLYETHYLENE (MIRALAX) 17 GM PACK PO SCH (09:18)
[2016-12-31] MEDS: ENOXAPARIN 40 MG/0.4 ML SYR SQ SCH (09:18)
[2016-12-31] MEDS: DILTIAZEM HCL 300 MG CAPCR PO SCH (09:20)
[2016-12-31] MEDS: INSULIN ASPART 100 UNITS/ML 3 ML PEN SC SCH ×2 (09:25→13:11)
--- NOTE | 2016-12-31 11:23 | Consultant Recommendations ---
Senior Mortgage Underwriter Recommendations Date of Service Dec 31, 2016. Senior Mortgage Underwriter Recommendations Maintain strict NWB LLE at all times Ice to left ankle as needed for pain/swelling. Elevate left foot above heart to relieve pain/swelling. Keep splint on left ankle at all times. Okay to wiggle toes frequently. Follow up with Dr. Paredes on 01/04/17 at 10:00 a.m. Please call [phone] with any questions/concerns or need to reschedule appointments.
[2016-12-31] MEDS ORDERED: SNK PO (12:15)
[2016-12-31] MEDS ORDERED: PRED-301 PO (12:15)
[2016-12-31] MEDS ORDERED: NYSS5 PO (12:15)
[2016-12-31] MEDS ORDERED: DLCS PR (12:15)
[2016-12-31] MEDS ORDERED: MRLP17X PO (12:15)
[2016-12-31] MEDS ORDERED: DILT300C PO (12:15)
[2016-12-31] MEDS ORDERED: AMOX1TAB43 PO (12:15)
[2016-12-31] MEDS ORDERED: ALPR-412 PO (12:15)
[2016-12-31] MEDS ORDERED: LVNIS40 SQ (12:15)
[2016-12-31] MEDS ORDERED: FERR1TAB13 PO (12:15)
[2016-12-31] MEDS ORDERED: HYDR-5688 PO (12:15)
[2016-12-31] MEDS ORDERED: INSDGIPEN SC (12:15)
[2016-12-31] MEDS ORDERED: ALBINS INH (12:15)
--- NOTE | 2016-12-31 12:25 | Discharge Instructions ---
Discharge Instructions Date of Service Dec 31, 2016. Admission Reason for Admission: Copd Exacerbation, Respiratory Failure, Left ankle Fracture, Pneumonia Discharge Discharge Diagnosis / Problem: COPD exacerbation, pneumonia, and left ankle fracture Discharge Goals Goal(s): Decrease discomfort, Improve function, Increase independence, Improve disease control, Improve nutritional status, Learn about illness, Diagnostic testing, Therapeutic intervention Activity Recommendations Activity Level: Assistance Required Therapies: Physical Therapy, Occupational Therapy Weightbearing Status: Left non-weightbearing (Total (100%) NONweightbearing to LEFT LEG ) . Additional Information Patient informed of condition: Yes Advance Directives: No DNR: No Level of Care: Skilled Communicable Disease: No Prognosis: Stable Oxygen at (LPM): 2 liters continously; CPAP at HS and with naps with 35% FiO2 blended [place]mezcua Catheter: No Instructions / Follow-Up Instructions / Follow-Up See [facility] within [address] Paredes, Orthopedics, 01/04/17 at 10:00 a.m. Current Hospital Diet Patient's current hospital diet: Diabetes Type 2 Diet, AHA Diet (Heart Healthy) Discharge Diet Recommended Diet: Diabetes Type 2 Diet Procedures Procedures Performed: Open Reduction Internal Fixation of medial and lateral malleolar Fracture of Left Ankle Pending Studies Studies pending at discharge: no Physician Orders On Transfer Special Precautions: fall precautions Vital Signs: per routine along with O2 sats O2 sats of 90-92% are acceptable for Ms. Mcclendon fingerstick blood sugars before meals and at bedtime Additional Orders: 1. NC O2 2 liters at all times 2. CPAP ( to bring from home) at bedtime and with daytime naps. 35% FiO2 should be blended into CPAP. POLST Discussion: Not Applicable Medical Emergencies . Who to Call and When: Medical Emergencies: If at any time you feel your situation is an emergency, please call 911 immediately. . Non-Emergent Contact Non-Emergency issues call your: Surgeon (orthopedics) Call Non-Emergent contact if: your pain is not controlled, your pain is worsening, your pain is unusual for you, your pain is concerning you, you have any medication questions . . "Provider Documentation" section prepared by David Iqbal. . Rn Radiation Recommendations Rn Radiation Recommendations: Maintain strict NWB LLE at all times Ice to left ankle as needed for pain/swelling. Elevate left foot above heart to relieve pain/swelling. Keep splint on left ankle at all times. Okay to wiggle toes frequently. Follow up with Dr. Paredes on 01/04/17 at 10:00 a.m. Please call [phone] with any questions/concerns or need to reschedule appointments. Core Measure Problem Core Measures: None
--- NOTE | 2016-12-31 13:00 | Orthopedic Progress Note ---
Orthopedic Progress Note Date of Service Dec 31, 2016. Subjective Post OP Day: 3 Reports: feeling well, Denies: complaints, chest pain, SOB, nausea / vomiting, light headedness, calf pain Objective calves soft nontender, N/V intact, splint C/D/I, capillary refill less than 2 sec., dressing C/D/I, A&O x3, toes mobile Date Time Temp Pulse Resp B/P (MAP) Pulse Ox O2 Delivery O2 Flow Rate FiO2 12/31/16 09:20 92 146/67 (93) 12/31/16 08:10 Nasal Cannula 2.0 12/31/16 07:43 91 20 94 Nasal Cannula 2.0 12/31/16 07:13 36.9 90 18 150/75 (100) 94 Room Air 12/31/16 01:57 84 22 96 BiPAP/CPAP 35 12/31/16 00:17 97 95 35 12/31/16 00:05 Nasal Cannula 2.0 12/30/16 23:00 36.8 102 18 145/75 (98) 97 Nasal Cannula 2.0 12/30/16 15:15 Nasal Cannula 2.0 35 12/30/16 15:09 37.1 100 18 131/78 (95) 90 Nasal Cannula 1.5 Laboratory Results 24 Hours: Test 12/31/16 07:02 White Blood Count 14.33 K/uL Red Blood Count 3.67 M/uL Hemoglobin 10.6 g/dL Hematocrit 34.1 % Mean Corpuscular Volume 92.9 fL Mean Corpuscular Hemoglobin 28.9 pg Mean Corpuscular Hemoglobin Concent 31.1 g/dl Platelet Count 248 K/uL Mean Platelet Volume 9.6 fL Neutrophils (%) (Auto) 72.2 % Lymphocytes (%) (Auto) 15.8 % Monocytes (%) (Auto) 10.5 % Eosinophils (%) (Auto) 0.8 % Basophils (%) (Auto) 0.1 % Neutrophils # (Auto) 10.37 K/uL Lymphocytes # (Auto) 2.26 K/uL Monocytes # (Auto) 1.50 K/uL Eosinophils # (Auto) 0.11 K/uL Basophils # (Auto) 0.01 K/uL Assessment & Plan Assessment: POD 3 - ORIF left ankle fracture Plan: Needs to keep splint on at all times. Ice to right ankle as needed for pain/swelling Elevate right ankle as needed for swelling. Encouraged NWB LLE at all times. Lovenox for DVT prophylaxis. Ordered Vitamin A to aid in healing x 10 days. PT/OT as ordered. SS for discharge plans. Will discuss findings with Dr. Paredes Discharge [facility] later today. Follow up with Dr. Paredes next week as scheduled. Discharge Planning Discharge Planning: senior living facility Pain Management: Lortab, Ultram DVT Prophylaxis: Lovenox
--- NOTE | 2016-12-31 13:23 | DIAGNOSTIC IMAGING REPORT ---
CHEST ONE VIEW PORTABLE CLINICAL HISTORY: 76 years-old Female presenting with eval for resolving infiltrates, etc. TECHNIQUE: Portable upright AP view of the chest was obtained. COMPARISON: 12/24/2016. FINDINGS: Atherosclerosis of aortic arch. Cardiac silhouette top normal in size, unchanged. Mild prominence of pulmonary vasculature unchanged. Hyperinflation. Elevation of the left hemidiaphragm. Slight apparent decrease in size of left pleural effusion and left basilar opacity. Apparent nodular opacity in the right mid to lung base possibly correlates to S1 pleural plaque seen on CT from 12/22/2016. Osseous structures normal. Upper abdomen normal. IMPRESSION: 1. Hyperinflation suggests emphysema. 2. Slight decrease in left basilar opacity and left pleural effusion. Electronically signed by: Fam Stauffer M.D. 12/31/2016 1:22 PM Dictated Date/Time: 12/31/2016 1:19 PM
== END 2016-12-31 15:13 | DRG 853 ==
LOC: C.EDB 09:39 → C.2T 12:20 → ENRESERV 13:24 → C.4E 12-25 14:46 → EDBEDREQSVC 12-25 15:10 → ENRESERV 12-25 15:13 → C.MSN 12-25 15:58 → ENRESERV 12-28 17:16 → C.2T 12-28 17:56 → ENRESERV 12-29 15:35 → CANRESERV 12-29 15:35 → EDBEDREQSVC 12-29 15:49 → ENRESERV 12-29 16:01 → C.MSN 12-29 17:41
PROVIDERS: ADMIT Internal Medicine; ATTEND Internal Medicine
PROC: 0SSGXZZ Reposition Left Ankle Joint, External Approach (ICD-10-PCS; principal; 2016-12-22)
PROC: 0SSG04Z Reposition Left Ankle Joint with Internal Fixation Device, Open Approach (ICD-10-PCS; 2016-12-28)
DX: A41.9 Sepsis, unspecified organism (principal); J69.0 Pneumonitis due to inhalation of food and vomit; J96.21 Acute and chronic respiratory failure with hypoxia; J96.22 Acute and chronic respiratory failure with hypercapnia; G93.41 Metabolic encephalopathy; J44.1 Chronic obstructive pulmonary disease with (acute) exacerbation; J98.11 Atelectasis; B37.0 Candidal stomatitis; E87.1 Hypo-osmolality and hyponatremia; S82.852A Displaced trimalleolar fracture of left lower leg, initial encounter for closed fracture; E83.42 Hypomagnesemia; R29.6 Repeated falls; E11.65 Type 2 diabetes mellitus with hyperglycemia; I10 Essential (primary) hypertension; M81.0 Age-related osteoporosis without current pathological fracture; G47.30 Sleep apnea, unspecified; K59.00 Constipation, unspecified; Z91.81 History of falling; Z79.84 Long term (current) use of oral hypoglycemic drugs; Z79.52 Long term (current) use of systemic steroids; Z79.899 Other long term (current) drug therapy; W19.XXXA Unspecified fall, initial encounter; T38.0X5A Adverse effect of glucocorticoids and synthetic analogues, initial encounter; Y92.019 Unspecified place in single-family (private) house as the place of occurrence of the external cause

== ENCOUNTER → 2017-01-10 | Outpatient (CLI) | payer OTHER ==
[~2017-01-10] MED LIST changes: +ALBINS INH; +ALBU0.633 NEB; -ALBU1NEB10 INH; -ALBUAER19 INH; +AMOX1TAB43 PO; +B-CO1CAP17 PO; +CHOL2000 PO; +CRAN1TAB; +CYAN100073; -DILT180C70 PO; +DILT300C PO; +DLCS PR; +FERR1TAB13 PO; +HYDR-5688 PO; +INSDGIPEN SC; +LVNIS40 SQ; +MRLP17X PO; +NYSS5 PO; +OMEG10007 PO; +SNK PO; +SPRIN/30 INH; -TIOTCAP INH; +VITA10004; -VITA100C4 PO; +[UNRECOGNIZED DRUG - CODE] PO
== END | disposition home or self-care (01) ==
LOC: C.RDSM 08:45
PROVIDERS: ATTEND Physical Medicine & Rehabilitation Sports Medicine
DX: S82.852A Displaced trimalleolar fracture of left lower leg, initial encounter for closed fracture (principal); X58.XXXA Exposure to other specified factors, initial encounter

== ENCOUNTER → 2017-02-09 | Outpatient (CLI) | payer OTHER | END | disposition home or self-care (01) | LOC: C.RDSM 13:52 | PROVIDERS: ATTEND Physical Medicine & Rehabilitation Sports Medicine | DX: S82.852D Displaced trimalleolar fracture of left lower leg, subsequent encounter for closed fracture with routine healing (principal); X58.XXXD Exposure to other specified factors, subsequent encounter ==

== ENCOUNTER → 2017-02-25 | Outpatient (CLI) | payer OTHER | END | disposition home or self-care (01) | LOC: C.RDSM 12:03 | PROVIDERS: ATTEND Physical Medicine & Rehabilitation Sports Medicine | DX: S82.852D Displaced trimalleolar fracture of left lower leg, subsequent encounter for closed fracture with routine healing (principal); X58.XXXD Exposure to other specified factors, subsequent encounter ==

== ENCOUNTER → 2017-03-08 | Outpatient (CLI) | payer OTHER | END | disposition home or self-care (01) | LOC: C.MAMM 10:17 | PROVIDERS: ATTEND Internal Medicine | DX: M85.88 Other specified disorders of bone density and structure, other site (principal) ==

== ENCOUNTER → 2017-04-01 | Outpatient (CLI) | payer OTHER | END | disposition home or self-care (01) | LOC: C.RDSM 12:57 | PROVIDERS: ATTEND Physical Medicine & Rehabilitation Sports Medicine | DX: S82.852A Displaced trimalleolar fracture of left lower leg, initial encounter for closed fracture (principal); X58.XXXA Exposure to other specified factors, initial encounter ==

== ENCOUNTER 2017-10-20 11:55 | Inpatient (IN) | payer OTHER ==
[~2017-10-20] VITALS: Ht 162.6 cm; Wt 68.9 kg
[2017-10-20] VITALS (8 sets, daily range): BP systolic 113–150; BP diastolic 67–73; PULSE 75–106; TEMP 36.5–36.8; O2SAT 85–98; Ht 162.6 cm; Wt 68.9 kg
[~2017-10-20 11:55] MED LIST changes: +ADVIN25/60 INH; -ADVIN25050 INH; -ALBINS INH; +ALBINS/ INH; -ALBU0.633 NEB; +ALBU18002 INH; -ALPR-412 PO; +ALPR0.25 PO; -AMOX1TAB43 PO; -B-CO1CAP17 PO; +CHOL1000 PO; -CHOL2000 PO; +CRAN1CAP6 PO; -CRAN1TAB; -CYAN100073; -DLCS PR; +DOXY100T PO; -FERR1TAB13 PO; -HYDR-5688 PO; -INSDGIPEN SC; -LVNIS40 SQ; -MRLP17X PO; -MULT-506 PO; -NIAC1TAB3 PO; +NIAC1TAB59 PO; -NYSS5 PO; -OXGN; +PRD10 PO; -RISE150T PO; -SNK PO; -SPRIN/30 INH; +UMEC1INH INH; -VITA10004; +VITA10004 PO; -[UNRECOGNIZED DRUG - CODE] PO
[2017-10-20] MEDS ORDERED: METHYLPREDNISOLONE 125 MG VIAL IV STA (12:17)
[2017-10-20] MEDS ORDERED: ALBUT/IPRATROP 3MG/0.5MG NEB 3 ML VIAL INH ONE (12:30)
--- NOTE | 2017-10-20 12:38 | DIAGNOSTIC IMAGING REPORT ---
CHEST ONE VIEW PORTABLE CLINICAL HISTORY: eval for pna dyspnea COMPARISON STUDY: 09/22/2017 FINDINGS: Diffuse parenchymal infiltrate left base and left midlung. Mild parenchymal infiltrative process right base. Prominent pulmonary vasculature. IMPRESSION: Bilateral parenchymal infiltrative change with presence of a left pleural effusion. The above report was generated using voice recognition software. It may contain grammatical, syntax or spelling errors. Electronically signed by: Armani Ashraf M.D. 10/20/2017 12:37 PM Dictated Date/Time: 10/20/2017 12:36 PM
[2017-10-20 12:51] LABS: PTT PATIENT 23.6 SECONDS (21.0-31.0)
[2017-10-20 13:01] LABS: HEMATOCRIT 39.9 % (37-47); HEMOGLOBIN 11.6 g/dL (12.0-16.0); MEAN CELL VOLUME 99.8 fL (80-100); MEAN CORPUSCULAR HGB CONC 29.1 g/dl (32-36); PLATELET COUNT 388 K/uL (130-400); RED CELL DISTRIBUTION WIDTH CV 13.8 % (11.5-14.5); RED CELL DISTRIBUTION WIDTH SD 49.3 fL (36.4-46.3); WHITE BLOOD COUNT 9.72 K/uL (4.8-10.8)
[2017-10-20] MEDS ORDERED: PIPERACILLIN/TAZOBACTAM 4.5 GM/100ML D5W IV STA (13:03)
[2017-10-20 13:06] LABS: BLOOD UREA NITROGEN 19 mg/dl (7-18); CALCIUM 8.8 mg/dl (8.5-10.1); CARBON DIOXIDE 40 mmol/L (21-32); GLUCOSE 307 mg/dl (70-99); POTASSIUM 3.6 mmol/L (3.5-5.1); SODIUM 140 mmol/L (136-145)
[2017-10-20 13:32] LABS: BASO % 0.1 %; BASO ABS # 0.01 K/uL (0-0.2); EOS % 0.3 %; EOS ABS # 0.03 K/uL (0-0.5); IG# 0.07 K/uL (0.00-0.02); LYMPH % 4.7 %; LYMPH ABS # 0.46 K/uL (1.2-3.4); MONO % 3.9 %; MONO ABS # 0.38 K/uL (0.11-0.59); NEUT % 90.3 %; NEUT ABS # 8.77 K/uL (1.4-6.5)
[2017-10-20] MEDS ORDERED: VANCOMYCIN CONSULT ACTIVE PRN (15:15)
[2017-10-20] MEDS ORDERED: ONDANSETRON INJ 2 MG/ML 2 ML VIAL IV PRN (15:15)
[2017-10-20] MEDS ORDERED: ALBUTEROL 0.083% NEBU SOLN 3 ML VIAL INH PRN (15:15)
[2017-10-20] MEDS ORDERED: ACETAMINOPHEN 325 MG TAB PO PRN (15:15)
[2017-10-20] MEDS ORDERED: INSULIN GLARGINE SOLOSTAR 100 UNITS/ML 3 ML PEN SC ONE (15:30)
[2017-10-20] MEDS ORDERED: ALPRAZOLAM 0.25 MG TAB PO PRN (15:30)
[2017-10-20] MEDS ORDERED: VANCOMYCIN 1GM ED/ASU OMNICELL ONE (15:35)
[2017-10-20] MEDS ORDERED: VANCOMYCIN IV 1,500 MG in SODIUM CHLORIDE 0.9% 500ML 500 ML IV STA (15:41)
[2017-10-20] MEDS ORDERED: PIPERACILL/TAZOBAC CONSULT ACTIVE PRN (16:15)
--- NOTE | 2017-10-20 16:25 | EMERGENCY ROOM VISIT NOTE ---
History Report prepared by Luis: Jenniffer Mei Under the Supervision of: Dr. John Varghese M.D. First contact with patient: 12:11 Chief Complaint: SHORTNESS OF BREATH Stated Complaint: SOB History of Present Illness The patient is a 77 year old female who presents to the Emergency Room with complaints of worsening shortness of breath that started 3 days ago. The patient states she has a history of COPD and is normally on 2L of oxygen. Her oxygen saturation was 79% on 3L of oxygen this morning. She reports she has also been very weak. The patient denies cough, fever, chest pain, vomiting, diarrhea, abdominal pain, leg swelling, or pain in legs. The patient states she is not on blood thinners. Source of History: patient Onset: 3 days ago Position: other (lungs) Symptom Intensity: severe Quality: other (Shortness of breath) Timing: worsening Modifying Factors (Relieving): oxygen Associated Symptoms: + SOB, + weakness, No fevers, No cough, No chest pain, No vomiting, No abdominal pain, No diarrhea Note: Denies: leg pain or leg swelling. Review of Systems See HPI for pertinent positives & negatives. A total of 10 systems reviewed and were otherwise negative. Past Medical & Surgical Medical Problems: (1) Acute and chronic respiratory failure with hypercapnia (2) COPD exacerbation (3) Falls frequently (4) HTN (hypertension) Family History Diabetes mellitus Social History Smoking Status: Former Smoker Drug Use: none Marital Status: Housing Status: lives with family Occupation Status: retired Current/Historical Medications Scheduled Cholecalciferol (Vitamin D3), 1,000 UNITS PO DAILY Cranberry (Vaccinium Macrocarp (Cranberry), 250 MG PO UD Diltiazem Hcl Coated Beads (Diltiazem Hcl Er), 300 MG PO QAM Fish Oil (Iuka-3), 1 CAP PO QAM Fluticasone Prop/Salmeterol (Advair Diskus 250/50 60 Dose), 1 PUFFS INH BID Metformin Hcl (Glucophage), 500 MG PO BID Niacin Ext Rel (Niaspan Ext Rel), 500 MG PO BID Prednisone (Prednisone), 5 MG PO DAILY Vitamin E (Vitamin E), 1,000 UNITS PO QAM Scheduled PRN Albuterol Sulf (Proventil 0.083% 2.5MG/3ML), 2.5 MG INH Q4-6H PRN for SOB/ Wheezing Albuterol Sulfate (Proair Respiclick), 2 PUFFS INH DAILY PRN for SOB/Wheezing Alprazolam (Xanax), 0.25 MG PO DAILY PRN for Anxiety Doxycycline Hyclate (Doxycycline Hyclate), 1 TAB PO BID PRN for COLDS Allergies Coded Allergies: No Known Allergies (Unverified , 10/20/17) Physical Exam Vital Signs Date Time Temp Pulse Resp B/P (MAP) Pulse Ox O2 Delivery O2 Flow Rate FiO2 10/20/17 14:41 113 26 136/59 Oxymask 7.0 10/20/17 14:41 85 10/20/17 14:13 85 Nasal Cannula 6.0 10/20/17 13:28 100 16 140/74 85 Nebulizer 10/20/17 12:55 100 10/20/17 12:44 78 20 91 Nasal Cannula 6.0 10/20/17 12:15 90 Nasal Cannula 6.0 10/20/17 12:10 91 Nasal Cannula 7.0 10/20/17 11:58 37.0 108 24 163/52 79 Nasal Cannula 4.0 Physical Exam Constitutional: Vital signs reviewed. Eyes: Pupils are equal round reactive to light. Conjunctiva are noninjected. ENT: Pharynx is clear without erythema or exudate. Mucous membranes are dry. Neck supple without meningeal signs. Respiratory: Poor air entry bilaterally with diffuse wheezing. Breath sounds are equal bilaterally. Cardiovascular: Regular rate and rhythm. No rubs or gallops. GI: Soft, nondistended and nontender. Bowel sounds are present. Musculoskeletal: No peripheral edema. No lower extremity tenderness. Integumentary: No cyanosis. Neurological: The patient is awake and alert. No focal deficits. Psychiatric: Normal affect. Medical Decision & Procedures ER Provider Diagnostic Interpretation: Radiology results as stated below per my review and the radiologist's interpretation: CHEST ONE VIEW PORTABLE CLINICAL HISTORY: eval for pna dyspnea COMPARISON STUDY: 09/22/2017 FINDINGS: Diffuse parenchymal infiltrate left base and left midlung. Mild parenchymal infiltrative process right base. Prominent pulmonary vasculature. IMPRESSION: Bilateral parenchymal infiltrative change with presence of a left pleural effusion. The above report was generated using voice recognition software. It may contain grammatical, syntax or spelling errors. Electronically signed by: Armani Ashraf M.D. 10/20/2017 12:37 PM Dictated Date/Time: 10/20/2017 12:36 PM Laboratory Results 10/20/17 12:25 Red Blood Count 4.00, Mean Corpuscular Volume 99.8, Mean Corpuscular Hemoglobin 29.0, Mean Corpuscular Hemoglobin Concent 29.1, Mean Platelet Volume 10.0, Neutrophils (%) (Auto) 90.3, Lymphocytes (%) (Auto) 4.7, Monocytes (%) (Auto) 3.9, Eosinophils (%) (Auto) 0.3, Basophils (%) (Auto) 0.1, Neutrophils # (Auto) 8.77, Lymphocytes # (Auto) 0.46, Monocytes # (Auto) 0.38, Eosinophils # (Auto) 0.03, Basophils # (Auto) 0.01 10/20/17 12:25 Test 10/20/17 12:25 10/20/17 12:44 10/20/17 12:58 White Blood Count 9.72 K/uL (4.8-10.8) Red Blood Count 4.00 M/uL (4.2-5.4) Hemoglobin 11.6 g/dL (12.0-16.0) Hematocrit 39.9 % (37-47) Mean Corpuscular Volume 99.8 fL (80-100) Mean Corpuscular Hemoglobin 29.0 pg (25-34) Mean Corpuscular Hemoglobin Concent 29.1 g/dl (32-36) Platelet Count 388 K/uL (130-400) Mean Platelet Volume 10.0 fL (7.4-10.4) Neutrophils (%) (Auto) 90.3 % Lymphocytes (%) (Auto) 4.7 % Monocytes (%) (Auto) 3.9 % Eosinophils (%) (Auto) 0.3 % Basophils (%) (Auto) 0.1 % Neutrophils # (Auto) 8.77 K/uL (1.4-6.5) Lymphocytes # (Auto) 0.46 K/uL (1.2-3.4) Monocytes # (Auto) 0.38 K/uL (0.11-0.59) Eosinophils # (Auto) 0.03 K/uL (0-0.5) Basophils # (Auto) 0.01 K/uL (0-0.2) RDW Standard Deviation 49.3 fL (36.4-46.3) RDW Coefficient of Variation 13.8 % (11.5-14.5) Immature Granulocyte % (Auto) 0.7 % Immature Granulocyte # (Auto) 0.07 K/uL (0.00-0.02) Prothrombin Time 10.3 SECONDS (9.0-12.0) Prothromb Time International Ratio 1.0 (0.9-1.1) Activated Partial Thromboplast Time 23.6 SECONDS (21.0-31.0) Partial Thromboplastin Ratio 0.9 Anion Gap 6.0 mmol/L (3-11) Estimated GFR () 62.9 Estimated GFR (Non- 54.3 BUN/Creatinine Ratio 19.2 (10-20) Calcium Level 8.8 mg/dl (8.5-10.1) Beta-Hydroxybutyric Acid 8.14 mg/dL (0.2-2.81) Arterial Blood pH 7.33 (7.35-7.45) Arterial Blood Partial Pressure CO2 87 mmHg (35-46) Arterial Blood Partial Pressure O2 64 mm/Hg (80-95) Arterial Blood HCO3 44 mmol/L (19-24) Arterial Blood Oxygen Saturation 90.9 % (90-95) Arterial Blood Base Excess 14.8 mEq/L (-9-1.8) Arterial Blood Gas Delivery 6L Marques Test POS (POS) Bedside Troponin I < 0.030 ng/ml (0-0.045) Laboratory results as reviewed by me. Medications Administered Medications (Trade) Dose Ordered Sig/Silvestre Route Start Time Stop Time Status Last Admin Dose Admin Methylprednisolone Sodium Succinate (Solu-Medrol IV) 125 mg NOW STAT IV 10/20/17 12:17 10/20/17 12:19 DC 10/20/17 12:37 125 MG Albuterol/ Ipratropium (Duoneb) 12 ml ONE ONCE INH 10/20/17 12:30 10/20/17 12:31 DC 10/20/17 12:43 12 ML Piperacillin Sod/ Tazobactam Sod (Zosyn Iv) 4.5 gm NOW STAT IV 10/20/17 13:03 10/20/17 13:04 DC 10/20/17 13:26 4.5 GM ECG Per My Interpretation Indication: SOB/dyspnea Rate (beats per minute): 104 Rhythm: sinus tachycardia Findings: PAC, ST elevation, other (no ST elevation) ED Course 1211: The patient was evaluated in room A10. A complete history and physical exam was performed. 1217: Ordered Solu-Medrol IV 125 mg IV. 1230: Ordered Duoneb 12 ml INH. 1303: Ordered Zosyn Iv 4.5 mg IV. 1305: I checked on the patient. Her pulse ox is 93% on the nebulizer and she is still wheezing significantly. I also discussed x-ray results with her. 1325: I spoke with John Hernandes PA-C, [facility] Hospitalist. He agrees to evaluate the patient for further management. 1525: I checked on the patient and her pulse ox was 85% on 5L. She feels better and her wheezing has improved significantly on exam. I ordered BiPAP and she is agreeable. The hospitalist was informed. Medical Decision This is a 77-year-old female presents with shortness of breath. Differential diagnosis includes respiratory failure, COPD, hypoxemia, hypercapnia, pneumonia , pleural effusion. I did perform a limited focused review of portions of the patient's old chart on the electronic medical record. The patient was seen on September 21 for respiratory failure and COPD exacerbation. She was discharged on Prednisone. I did evaluate the patient as noted above. The patient is hypoxemic on her regular oxygen. She was given 5 L here. IV access was established. The patient was placed on a continuous stave bolt equalizer. I did treat her with an hour-long continuous nebulizer with albuterol and Atrovent. She was also given Solu-Medrol 125 mg IV. I did order and personally review the patient's 12-lead EKG and chest x-ray as described above. Her chest x-ray demonstrates bilateral lower lobe pneumonia. Blood cultures were obtained. I did order Zosyn 4.5 mg IV. I did order and review the patient's blood work as noted in the electronic medical record. She is hyperglycemic. Blood gas demonstrates hypoxemia and hypercapnia. I did reassess patient. She did have improvement of her wheezing but her O2 saturations went down further. She does state that she is subjectively feeling somewhat better. I did discuss the test results with the patient and her family. She was placed on BiPAP in order to maintain O2 saturations. I did discuss the case with the hospitalist and case managers. Medication Reconcilliation Current Medication List: was personally reviewed by me Blood Pressure Screening Patient's blood pressure: Elevated blood pressure Blood pressure disposition: Referred to PCP Consults Time Called: 1320 Consulting Physician: John Hernandes PA-C, [facility] Hospitalist Returned Call: 1325 I spoke with John Hernandes PA-C, [facility] Hospitalist. He agrees to evaluate the patient for further management. Impression Primary Impression: Respiratory failure with hypoxia Additional Impressions: Hypercapnia Bilateral pneumonia COPD exacerbation Critical Care I have personally spent 32 minutes of critical care time in the direct management of this patient. This includes bedside care, interpretation of diagnostic studies, and testing, discussion with consultants, patient, and family members, and other required patient management activities. This 32 minutes is in excess of all separately billable procedures. Scribe Attestation The scribe's documentation has been prepared under my direct and personally reviewed by me in its entirety. I confirm that the note above accurately reflects all work, treatment, procedures, and medical decision making performed by me. Departure Information Dispostion Being Evaluated By Hospitalist Referrals Matias Ram M.D. (PCP) Patient Instructions My [facility] Problem Qualifiers Primary Impression: Respiratory failure with hypoxia Chronicity: acute Qualified Codes: J96.01 - Acute respiratory failure with hypoxia Additional Impressions: Bilateral pneumonia Pneumonia type: due to unspecified organism Lung location: lower lobe of lung Qualified Codes: J18.1 - Lobar pneumonia, unspecified organism
[2017-10-20] MEDS ORDERED: VANCOMYCIN IV 2,000 MG in SODIUM CHLORIDE 0.9% 500ML 500 ML IV ONE (17:00)
[2017-10-20] MEDS: INSULIN ASPART 100 UNITS/ML 3 ML PEN SC SCH ×3 (18:07→21:31)
[2017-10-20] MEDS: PIPERACILL/TAZOBAC IV 3.375 GM in DEXTROSE 5% 100ML 100 ML IV SCH (18:10)
[2017-10-20] MEDS: ALBUT/IPRATROP 3MG/0.5MG NEB 3 ML VIAL NEB SCH (18:47)
--- NOTE | 2017-10-20 20:59 | History and Physical ---
History & Physical Date & Time of Service: Oct 20, 2017 at 16:04 Chief Complaint: SOB Primary Care Physician: Matias Ram M.D. History of Present Illness Joyce Mcclendon is a pleasant 77 year old woman who presents to the emergency room today with a one week history of progressive weakness, shortness of breath , confusion and poor oxygenation on her home O2 monitoring. Patient reports she started to feel very weak about a week ago and noticed that her O2 saturations were starting to get lower. Her energy levels continued to drop as the week progressed until yesterday she went out with her and daughter and needed to just sit down on the ground because she was too fatigued to move after very minimal physical exertion. She was increasing her home O2 use from 2- 3 L up to 6L and was still oxygenating in the mid 70's %. This drove her to seek care. She has been feeling off and somewhat confused at times, but she has not complained of any fevers, chills, night sweats, weight loss, change in her chronic cough, dyspnoea out of the ordinary, Productive cough, Hemoptysis, Chest pain or tightness, palpitations, Swelling, Abdominal pain, change in her urination, change in her bowel motions, or other complaints on review of systems. In the Emergency Department she received a chest X Ray which showed diffuse parenchymal infiltrate and a left pleural effusion. She was treated with duonebs , inspired oxygen, IV steroids and Zosyn with minimal improvement in her oxygenation. She was started on BiPap and admitted to telemedicine. Past Medical/Surgical History Medical Problems: (1) Acute and chronic respiratory failure with hypercapnia (2) Ankle fracture, left (3) Chronic obstructive pulmonary disease (4) Concussion (5) COPD exacerbation (6) Falls frequently (7) HTN (hypertension) (8) Hypoxemia (9) PNA (pneumonia) (10) Pneumonia (11) Respiratory distress (12) Sepsis Family History Diabetes mellitus Myocardial infarction at age less than 60 FATHER, , Age:40's - 50, Onset:40's - 50 Social History Smoking Status: Former Smoker (35 pack year smoking history) Smokeless Tobacco Use: No Drug Use: none Marital Status: Housing status: lives with family Occupational Status: retired Immunizations History of Influenza Vaccine: Unknown History of Tetanus Vaccine?: Unknown History of Pneumococcal: Unknown History of Hepatitis B Vaccine: Unknown Allergies Coded Allergies: No Known Allergies (Unverified , 10/20/17) Home Medications Scheduled Cholecalciferol (Vitamin D3), 1,000 UNITS PO DAILY Cranberry (Vaccinium Macrocarp (Cranberry), 250 MG PO UD Diltiazem Hcl Coated Beads (Diltiazem Hcl Er), 300 MG PO QAM Fish Oil (Catharpin-3), 1 CAP PO QAM Fluticasone Prop/Salmeterol (Advair Diskus 250/50 60 Dose), 1 PUFFS INH BID Metformin Hcl (Glucophage), 500 MG PO BID Niacin Ext Rel (Niaspan Ext Rel), 500 MG PO BID Prednisone (Prednisone), 5 MG PO DAILY Vitamin E (Vitamin E), 1,000 UNITS PO QAM Scheduled PRN Albuterol Sulf (Proventil 0.083% 2.5MG/3ML), 2.5 MG INH Q4-6H PRN for SOB/ Wheezing Albuterol Sulfate (Proair Respiclick), 2 PUFFS INH DAILY PRN for SOB/Wheezing Alprazolam (Xanax), 0.25 MG PO DAILY PRN for Anxiety Doxycycline Hyclate (Doxycycline Hyclate), 1 TAB PO BID PRN for COLDS Review of Systems Constitutional: + weakness, + fatigue, No fever, No chills, No sweats, No weight loss ENT: No hearing loss, No nasal symptoms, No sore throat, No trouble swallowing Respiratory: + cough, + shortness of breath, + dyspnea on exertion, No sputum, No hemoptysis Cardiovascular: No chest pain, No edema, No palpitations Abdomen: No pain, No nausea, No vomiting, No diarrhea, No constipation Genitourinary - Female: No dysuria, No urinary frequency, No urinary urgency, No hematuria Neurologic: + memory loss, + weakness, No paralysis Psychiatric: No depression symptoms, No anxiety Endocrine: + fatigue, No excessive thirst, No excessive urination Physical Exam Vital Signs Date Time Temp Pulse Resp B/P (MAP) Pulse Ox O2 Delivery O2 Flow Rate FiO2 10/20/17 15:51 104 20 119/72 93 10/20/17 15:33 104 95 60 10/20/17 14:41 113 26 136/59 Oxymask 7.0 10/20/17 14:41 85 10/20/17 14:13 85 Nasal Cannula 6.0 10/20/17 13:28 100 16 140/74 85 Nebulizer 10/20/17 12:55 100 10/20/17 12:44 78 20 91 Nasal Cannula 6.0 10/20/17 12:15 90 Nasal Cannula 6.0 10/20/17 12:10 91 Nasal Cannula 7.0 10/20/17 11:58 37.0 108 24 163/52 79 Nasal Cannula 4.0 General Appearance: WD/WN Head: normocephalic, atraumatic Eyes: normal inspection, EOMI, sclerae normal Neck: no adenopathy, no carotid bruits Respiratory/Chest: chest non-tender, no accessory muscle use, + decreased breath sounds Cardiovascular: regular rate, rhythm, no edema, no gallop, no murmur Abdomen/GI: normal bowel sounds, non tender, soft, no organomegaly Back: normal inspection Extremities/Musculoskelatal: no pedal edema, non-tender Neurologic/Psych: no motor/sensory deficits, alert, normal mood/affect Diagnostics Laboratory Results Results Past 24 Hours Test 10/20/17 12:25 10/20/17 12:44 10/20/17 12:58 Range/Units White Blood Count 9.72 4.8-10.8 K/uL Red Blood Count 4.00 4.2-5.4 M/uL Hemoglobin 11.6 12.0-16.0 g/dL Hematocrit 39.9 37-47 % Mean Corpuscular Volume 99.8 80-100 fL Mean Corpuscular Hemoglobin 29.0 25-34 pg Mean Corpuscular Hemoglobin Concent 29.1 32-36 g/dl Platelet Count 388 130-400 K/uL Mean Platelet Volume 10.0 7.4-10.4 fL Neutrophils (%) (Auto) 90.3 % Lymphocytes (%) (Auto) 4.7 % Monocytes (%) (Auto) 3.9 % Eosinophils (%) (Auto) 0.3 % Basophils (%) (Auto) 0.1 % Neutrophils # (Auto) 8.77 1.4-6.5 K/uL Lymphocytes # (Auto) 0.46 1.2-3.4 K/uL Monocytes # (Auto) 0.38 0.11-0.59 K/uL Eosinophils # (Auto) 0.03 0-0.5 K/uL Basophils # (Auto) 0.01 0-0.2 K/uL RDW Standard Deviation 49.3 36.4-46.3 fL RDW Coefficient of Variation 13.8 11.5-14.5 % Immature Granulocyte % (Auto) 0.7 % Immature Granulocyte # (Auto) 0.07 0.00-0.02 K/uL Prothrombin Time 10.3 9.0-12.0 SECONDS Prothromb Time International Ratio 1.0 0.9-1.1 Activated Partial Thromboplast Time 23.6 21.0-31.0 SECONDS Partial Thromboplastin Ratio 0.9 Sodium Level 140 136-145 mmol/L Potassium Level 3.6 3.5-5.1 mmol/L Chloride Level 94 98-107 mmol/L Carbon Dioxide Level 40 21-32 mmol/L Anion Gap 6.0 3-11 mmol/L Blood Urea Nitrogen 19 7-18 mg/dl Creatinine 1.00 0.60-1.20 mg/dl Estimated GFR () 62.9 Estimated GFR (Non- 54.3 BUN/Creatinine Ratio 19.2 10-20 Random Glucose 307 70-99 mg/dl Calcium Level 8.8 8.5-10.1 mg/dl Beta-Hydroxybutyric Acid 8.14 0.2-2.81 mg/dL Arterial Blood pH 7.33 7.35-7.45 Arterial Blood Partial Pressure CO2 87 35-46 mmHg Arterial Blood Partial Pressure O2 64 80-95 mm/Hg Arterial Blood HCO3 44 19-24 mmol/L Arterial Blood Oxygen Saturation 90.9 90-95 % Arterial Blood Base Excess 14.8 -9-1.8 mEq/L Arterial Blood Gas Delivery 6L Marques Test POS POS Bedside Troponin I < 0.030 0-0.045 ng/ml Microbiology Results 10/20/17 Blood Culture, Received Pending 10/20/17 Blood Culture, Received Pending Diagnostic Radiology CHEST ONE VIEW PORTABLE CLINICAL HISTORY: eval for pna dyspnea COMPARISON STUDY: 09/22/2017 FINDINGS: Diffuse parenchymal infiltrate left base and left midlung. Mild parenchymal infiltrative process right base. Prominent pulmonary vasculature. IMPRESSION: Bilateral parenchymal infiltrative change with presence of a left pleural effusion. EKG Sinus Tachycardia with PAC Impression Assessment and Plan 77 y/o F here with shortness of breath Acute on Chronic Hypercapnic Respiratory Failure -Admitted to telemetry -Oxygenating at 79% on 7 L -Starting on BiPap COPD exacerbation - Started on iv steroids, duonebs q6h, albuterol prn -Continue home treatments Possible Gram Negative Pneumonia in the setting of HCAP and immunosuppression -Zosyn and Vancomycin started - blood and sputum culture - nebs DMII -Lantus 10 units -Aspart Sliding scale, bsg -Holding metformin HTN/HLD -Cardizem -Niacin Anxiety -On prn xanax Lovenox DNR Advanced Directives Existing Living Will: No Existing Power of Sales And Marketing Intern: No Resuscitation Status DNR VTE Prophylaxis Will order VTE Prophylaxis: Yes Note Total Time: Critical Care 30 - 74 minutes Resident Tracking Resident Involvement: Resident Care Provided Care Provided: Adult Hospital Medicine Reviewed: Pt Seen/Exam by Me History 77 y/o F here with shortness of breath Constitutional: denies: fever Respiratory: positive: short of breath Cardiovascular: denies chest pain General Appearance: mild distress (on bipap) Respiratory: respiratory distress, decreased breath sounds, wheezing Cardiovascular: regular rate, rhythm, no edema Gastrointestinal: soft Neurologic/Psychiatric: alert, oriented x 3 Skin Characteristics: warm/dry Assessment/Plan Resident Physician Supervision Note: I independently interviewed and examined the patient and verified the mondragon history and physical, reviewed labs and image studies, discussed the case with the resident Dr. Martinez and agree with the findings and care plan.
--- NOTE | 2017-10-20 21:19 | Pharmacy Progress Note ---
Pharmacy Abx Initial Consult Date of Service Oct 20, 2017. Pharmacy Dosing Scope Date of Consult: 10/20/17 Consultation requested by: Dr. Noam Martinez Pharmacy is consulted to initiate vancomycin and Zosyn IV dosing therapy, order appropriate labs and adjust drug dose/frequency. Subjective The patient is a 77 year old female admitted on Oct 20, 2017 at 15:28. Objective Height (Feet): 5 Height (Inches): 4.00 Weight (Kilograms): 76.000 Vital Signs (Past 12Hrs) Vital Signs Past 12 Hours Date Time Temp Pulse Resp B/P (MAP) Pulse Ox O2 Delivery O2 Flow Rate FiO2 10/20/17 19:19 36.5 84 20 132/67 (88) 98 BiPAP 94 135/73 (93) 106 113/69 (84) 10/20/17 18:48 97 18 90 Mask 6.0 10/20/17 16:10 36.8 96 24 150/67 (94) 93 BiPAP 10/20/17 16:00 CPAP 10/20/17 15:51 104 20 119/72 93 10/20/17 15:33 104 95 60 10/20/17 14:41 113 26 136/59 Oxymask 7.0 10/20/17 14:41 85 10/20/17 14:13 85 Nasal Cannula 6.0 10/20/17 13:28 100 16 140/74 85 Nebulizer 10/20/17 12:55 100 10/20/17 12:44 78 20 91 Nasal Cannula 6.0 10/20/17 12:15 90 Nasal Cannula 6.0 10/20/17 12:10 91 Nasal Cannula 7.0 10/20/17 11:58 37.0 108 24 163/52 79 Nasal Cannula 4.0 Lab Results (24Hrs) Laboratory Tests (24 Hours) Test 10/20/17 12:25 White Blood Count 9.72 K/uL (4.8-10.8) Red Blood Count 4.00 M/uL (4.2-5.4) L Hemoglobin 11.6 g/dL (12.0-16.0) L Hematocrit 39.9 % (37-47) Mean Corpuscular Volume 99.8 fL (80-100) Mean Corpuscular Hemoglobin 29.0 pg (25-34) Mean Corpuscular Hemoglobin Concent 29.1 g/dl (32-36) L Platelet Count 388 K/uL (130-400) Mean Platelet Volume 10.0 fL (7.4-10.4) Neutrophils (%) (Auto) 90.3 % Lymphocytes (%) (Auto) 4.7 % Monocytes (%) (Auto) 3.9 % Eosinophils (%) (Auto) 0.3 % Basophils (%) (Auto) 0.1 % Neutrophils # (Auto) 8.77 K/uL (1.4-6.5) H Lymphocytes # (Auto) 0.46 K/uL (1.2-3.4) L Monocytes # (Auto) 0.38 K/uL (0.11-0.59) Eosinophils # (Auto) 0.03 K/uL (0-0.5) Basophils # (Auto) 0.01 K/uL (0-0.2) Procalcitonin 0.08 ng/ml (0-0.5) Micro Results Date/Time Source Procedure Growth Status 10/20/17 13:20 Blood Blood Culture Pending Received 10/20/17 12:25 Blood Blood Culture Pending Received Risk Factors for Resistance * Hospitalization for 48 hours or more within the past 90 days * Antimicrobial use within the last 90 days azithromycin and vancomycin Assessment & Plan Assessment 77 year old female with a PMH of COPD on 3 L oxygen and DM type 2 who presents who progressive shortness of breath - currently diagnosed with pneumonia. Plan vancomycin/zosyn for treatment of pneumonia Vancomycin IV * Loading dose: 2000 mg (25 mg/kg) * Maintenance dose: 1000 mg IV (13 mg/kg) every 12 hours (population pharmacokinetics suggest a half-life of 13.3 hours but chose a q12 hour regimen with lower mg/kg to create a more balanced regimen). * Goal trough level for pneumonia : 15 to 20 mcg/mL * Trough ordered for 10/22/17 prior to 0500 Piperacillin/tazobactam * 3.375 g bolus administered over 30 minutes, then 3.375 g IV extended infusion every 8 hours for CrCl greater than 20 mL/min O Pharmacy will continue to follow and will adjust dose/frequency as necessary. Thank you.
[2017-10-20] MEDS: NIASPAN 500 MG TABCR PO SCH (21:27)
[2017-10-20] MEDS: ENOXAPARIN 40 MG/0.4 ML SYR SC SCH (21:28)
[2017-10-20] MEDS: FLUTICASONE/SALMETEROL 250/50 (ADVAIR) 14 PUFF/1 INHALER INH SCH (21:33)
[2017-10-20] MEDS ORDERED: NovoLIN-R INSULIN PER UNIT CHARGE SQ ONE ×2 (22:00)
[2017-10-21] VITALS (14 sets, daily range): BP systolic 128–154; BP diastolic 73–94; PULSE 69–108; TEMP 36.6–36.9; O2SAT 85–100
[2017-10-21] MEDS: ALBUT/IPRATROP 3MG/0.5MG NEB 3 ML VIAL NEB SCH ×4 (02:04→18:51)
[2017-10-21] MEDS: PIPERACILL/TAZOBAC IV 3.375 GM in DEXTROSE 5% 100ML 100 ML IV SCH ×3 (02:13→18:12)
[2017-10-21] MEDS ORDERED: VANCOMYCIN IV 1,000 MG in SODIUM CHLORIDE 0.9% 250ML 250 ML IV SCH (05:00)
[2017-10-21 05:42] LABS: HEMOGLOBIN A1C 6.9 % (4.5-5.6)
[2017-10-21 07:16] LABS: CREATININE 1.24 mg/dl (0.60-1.20)
[2017-10-21] MEDS: FLUTICASONE/SALMETEROL 250/50 (ADVAIR) 14 PUFF/1 INHALER INH SCH ×2 (07:43→21:07)
[2017-10-21] MEDS: NIASPAN 500 MG TABCR PO SCH ×2 (07:43→21:08)
[2017-10-21] MEDS: INSULIN ASPART 100 UNITS/ML 3 ML PEN SC SCH ×4 (07:45→21:11)
[2017-10-21] MEDS: DILTIAZEM HCL 300 MG CAPCR PO SCH (07:46)
[2017-10-21] MEDS: INSULIN GLARGINE SOLOSTAR 100 UNITS/ML 3 ML PEN SC SCH (07:46)
--- NOTE | 2017-10-21 07:50 | Clinical Documentation Query ---
CLINICAL DOCUMENTATION QUERY 77 year old female who presents with acute on chronic respiratory failure 2/2 pneumonia and COPD exacerbation. This patient has a recent admission to hospital on 09/21-09/23 and is on immunosuppressive therapy. This puts her at risk for HCAP and more aggressive types of pneumonia. In your clinical opinion is this patient being managed for: ( x ) Possible Gram Negative pneumonia in setting of HCAP and immunosuppressive therapy. ( ) Not Agree ( ) Other explanation of clinical findings (No explanation is considered a No Response) ( ) Unable to determine ( ) Need to Discuss (Phone CDS or qliq) (No discussion is considered a No Response) The medical record reflects the following clinical findings, treatment, and risk factors. Clinical Indicators:-MRSA swab, pneumonia, Acute respiratory failure, Treatment: O2, IV Vancomycin, IV Zosyn, IV Solumedrol, Duonebs, Risk Factors: COPD, Home O2 therapy, immunosuppressive therapy (Prednisone), and recent contact with healthcare facility. Please clarify and document your clinical opinion in the progress notes and discharge summary. Terms such as "probable", "suspected", "likely", "questionable", "possible", or "still to be ruled out" are acceptable. IF IN AGREEMENT, YOU MUST DOCUMENT ABOVE DIAGNOSTIC STATEMENT IN DAILY PROGRESS NOTES AND DISCHARGE SUMMARY. This document is not part of the patient's record. Thank You, Nico Rios RN [phone] & via qlicCONNECT
--- NOTE | 2017-10-21 14:31 | Family Medicine Progress Note ---
Progress Note Date of Service Oct 21, 2017. Subjective Pt evaluation today including: conversation w/ patient, physical exam, chart review Pain: None Joyce Mcclendon is a 77 year old woman with acute on chronic hypercapnic respiratory failure 2/2 COPD exacerbation with pneumonia. Patient is currently saturating well on bipap and reports she slept well and is feeling much better today. She has no complaints today and is desiring to return as soon as possible. She is not dyspnoeic and conversing easily. Constitutional: No fever, No chills, No sweats Respiratory: + cough (Very occasional non productive), No dyspnea on exertion, No dyspnea at rest Cardiovascular: No chest pain Abdomen: No pain, No nausea, No vomiting, No diarrhea Musculoskeletal: No joint pain, No muscle pain, No calf pain Female : No dysuria Medications Current Inpatient Medications Medications (Trade) Dose Ordered Sig/Silvestre Route Start Time Stop Time Status Last Admin Dose Admin Enoxaparin Sodium (Lovenox Inj) 40 mg Q24H SC 10/20/17 21:00 11/19/17 20:59 10/20/17 21:28 40 MG Acetaminophen (Tylenol Tab) 650 mg Q4H PRN PO 10/20/17 15:15 11/19/17 15:14 Ondansetron HCl (Zofran Inj) 4 mg Q6H PRN IV 10/20/17 15:15 11/19/17 15:14 Piperacillin Sod/ Tazobactam Sod 3.375 gm/Dextrose 115 ml @ 28.75 mls/ hr Q8H IV 10/20/17 18:00 10/27/17 17:59 10/21/17 09:25 28.75 MLS/HR Albuterol Sulfate (Ventolin 0.083% 2.5MG/3ML Neb) 2.5 mg Q4H PRN INH 10/20/17 15:15 11/19/17 15:14 Albuterol/ Ipratropium (Duoneb) 3 ml Q6R NEB 10/20/17 21:00 11/19/17 20:59 10/21/17 07:07 3 ML Vancomycin HCl (Consult) 1 ea UD PRN N/A 10/20/17 15:15 11/19/17 15:14 Alprazolam (Xanax Tab) 0.25 mg DAILY PRN PO 10/20/17 15:30 11/19/17 15:29 Diltiazem HCl (Cardizem Cd Cap) 300 mg QAM PO 10/21/17 09:00 11/20/17 08:59 10/21/17 07:46 300 MG Salmeterol Xinafoate/ Fluticasone (Advair Diskus 250/50 Inh) 1 puff BID INH 10/20/17 21:00 11/19/17 20:59 10/21/17 07:43 1 PUFF Niacin (Niaspan Extended Rel Tab) 500 mg BID PO 10/20/17 21:00 11/19/17 20:59 10/21/17 07:43 500 MG Insulin Glargine (Lantus Solostar Pen) 10 units DAILY SC 10/21/17 09:00 11/20/17 08:59 10/21/17 07:46 10 UNITS Insulin Aspart (novoLOG ASPART) SLIDING SCALE G... ACHS SC 10/20/17 16:00 11/19/17 15:59 10/21/17 07:45 6 UNITS Miscellaneous Information (Consult) 1 ea UD PRN N/A 10/20/17 16:15 11/19/17 16:14 Vancomycin HCl 1000 mg/Sodium Chloride 270 ml @ 125 mls/hr Q12H IV 10/21/17 05:00 10/27/17 23:59 10/21/17 07:43 125 MLS/HR Objective Vital Signs Date Time Temp Pulse Resp B/P (MAP) Pulse Ox O2 Delivery O2 Flow Rate FiO2 10/21/17 14:12 82 18 85 Nasal Cannula 3.0 10/21/17 11:42 36.9 84 20 128/73 (91) 90 Nasal Cannula 3.0 10/21/17 08:04 Nasal Cannula 4.0 10/21/17 07:12 36.7 75 22 135/79 (97) 97 BiPAP 10/21/17 07:09 72 95 60 10/21/17 07:07 72 20 95 BiPAP/CPAP 60 10/21/17 03:47 36.8 69 21 145/94 (111) 94 BiPAP 10/21/17 02:07 75 95 60 10/21/17 02:04 74 26 95 BiPAP/CPAP 60 10/20/17 23:59 BiPAP 6.0 10/20/17 23:54 36.8 75 22 144/73 (96) 95 BiPAP 10/20/17 23:07 79 96 60 10/20/17 19:19 36.5 84 20 132/67 (88) 98 BiPAP 94 135/73 (93) 106 113/69 (84) 10/20/17 18:48 97 18 90 Mask 6.0 10/20/17 16:10 36.8 96 24 150/67 (94) 93 BiPAP 10/20/17 16:00 CPAP 10/20/17 15:51 104 20 119/72 93 10/20/17 15:33 104 95 60 10/20/17 14:41 113 26 136/59 Oxymask 7.0 10/20/17 14:41 85 Physical Exam General Appearance: WD/WN, no apparent distress Respiratory/Chest: chest non-tender, no respiratory distress, no accessory muscle use, + decreased breath sounds (Breast sounds decreased across entire chest) Cardiovascular: regular rate, rhythm, no edema, no gallop, no JVD, no murmur Abdomen: normal bowel sounds, non tender, soft, no organomegaly Assessment and Plan 77 y/o F here with shortness of breath Acute on Chronic Hypercapnic Respiratory Failure -Oxygenating well on NC O2 COPD exacerbation - iv steroids, duonebs q6h, albuterol prn -Continue home treatments Possible Gram Negative Pneumonia in the setting of HCAP and immunosuppression -Continuing on Zosyn and Vancomycin - awaiting blood and sputum culture -MRSA swab negative - nebs DMII -Lantus 10 units -Aspart Sliding scale, bsg -Holding metformin HTN/HLD -Cardizem -Niacin Anxiety -On prn xanax Lovenox DNR Resident Tracking Resident Involvement: Resident Care Provided Care Provided: Adult Hospital Medicine Reviewed: Pt Seen/Exam by Me History breathing better this am. Constitutional: denies: fever Cardiovascular: denies chest pain Gastrointestinal/Abdominal: negative: abdominal pain General Appearance: no apparent distress Respiratory: no respiratory distress, decreased breath sounds, wheezing Cardiovascular: regular rate, rhythm Neurologic/Psychiatric: alert, oriented x 3 Assessment/Plan Resident Physician Supervision Note: I independently interviewed and examined the patient and verified the mondragon history and physical, reviewed labs and image studies, discussed the case with the resident Dr. Martinez and agree with the findings and care plan.
[2017-10-21] MEDS: ENOXAPARIN 40 MG/0.4 ML SYR SC SCH (21:08)
[2017-10-22] VITALS (12 sets, daily range): BP systolic 126–156; BP diastolic 71–84; PULSE 70–95; TEMP 36.6–36.8; O2SAT 91–100
[2017-10-22] MEDS: PIPERACILL/TAZOBAC IV 3.375 GM in DEXTROSE 5% 100ML 100 ML IV SCH ×3 (01:43→17:08)
[2017-10-22] MEDS: ALBUT/IPRATROP 3MG/0.5MG NEB 3 ML VIAL NEB SCH ×4 (01:54→19:00)
[2017-10-22] MEDS ORDERED: VANCOMYCIN TROUGH ONE (04:30)
[2017-10-22 07:21] LABS: BASO % 0.1 %; BASO ABS # 0.01 K/uL (0-0.2); EOS % 0.5 %; EOS ABS # 0.05 K/uL (0-0.5); HEMATOCRIT 35.7 % (37-47); HEMOGLOBIN 11.1 g/dL (12.0-16.0); IG# 0.05 K/uL (0.00-0.02); LYMPH % 18.1 %; LYMPH ABS # 1.87 K/uL (1.2-3.4); MEAN CELL VOLUME 95.7 fL (80-100); MEAN CORPUSCULAR HEMOGLOBIN 29.8 pg (25-34); MEAN CORPUSCULAR HGB CONC 31.1 g/dl (32-36); MEAN PLATELET VOLUME 9.5 fL (7.4-10.4); MONO % 8.5 %; MONO ABS # 0.88 K/uL (0.11-0.59); NEUT % 72.3 %; PLATELET COUNT 320 K/uL (130-400); RED CELL DISTRIBUTION WIDTH CV 13.6 % (11.5-14.5); RED CELL DISTRIBUTION WIDTH SD 47.4 fL (36.4-46.3); WHITE BLOOD COUNT 10.36 K/uL (4.8-10.8)
[2017-10-22] MEDS: FLUTICASONE/SALMETEROL 250/50 (ADVAIR) 14 PUFF/1 INHALER INH SCH ×2 (08:12→20:59)
[2017-10-22] MEDS: NIASPAN 500 MG TABCR PO SCH ×2 (08:13→21:01)
[2017-10-22] MEDS: DILTIAZEM HCL 300 MG CAPCR PO SCH (08:13)
[2017-10-22 08:16] LABS: CALCIUM 8.7 mg/dl (8.5-10.1); CREATININE 1.2 mg/dl (0.60-1.20); POTASSIUM 3.3 mmol/L (3.5-5.1)
[2017-10-22] MEDS: INSULIN ASPART 100 UNITS/ML 3 ML PEN SC SCH ×4 (08:17→21:03)
[2017-10-22] MEDS: INSULIN GLARGINE SOLOSTAR 100 UNITS/ML 3 ML PEN SC SCH (08:18)
--- NOTE | 2017-10-22 10:10 | Family Medicine Progress Note ---
Progress Note Date of Service Oct 22, 2017. Subjective Pt evaluation today including: conversation w/ patient, chart review Pain: None Pt is a 77yo female currently recovering from an acute episode of COPD exacerbation with pneumonia and acute on chronic hypercapneic respiratory failure. She states she feels like she is back to baseline and ready to go home. Slept well the night before on bipap. Denies SOB and wheezing but states that she has a cough that produces white phlegm with no hempotysis. Constitutional: No fever, No chills Respiratory: + cough (not frequently), + sputum (white), No wheezing, No shortness of breath, No dyspnea at rest Cardiovascular: No chest pain, No palpitations Medications Current Inpatient Medications Medications (Trade) Dose Ordered Sig/Silvestre Route Start Time Stop Time Status Last Admin Dose Admin Enoxaparin Sodium (Lovenox Inj) 40 mg Q24H SC 10/20/17 21:00 11/19/17 20:59 10/21/17 21:08 40 MG Acetaminophen (Tylenol Tab) 650 mg Q4H PRN PO 10/20/17 15:15 11/19/17 15:14 Ondansetron HCl (Zofran Inj) 4 mg Q6H PRN IV 10/20/17 15:15 11/19/17 15:14 Piperacillin Sod/ Tazobactam Sod 3.375 gm/Dextrose 115 ml @ 28.75 mls/ hr Q8H IV 10/20/17 18:00 10/27/17 17:59 10/22/17 01:43 28.75 MLS/HR Albuterol Sulfate (Ventolin 0.083% 2.5MG/3ML Neb) 2.5 mg Q4H PRN INH 10/20/17 15:15 11/19/17 15:14 Albuterol/ Ipratropium (Duoneb) 3 ml Q6R NEB 10/20/17 21:00 11/19/17 20:59 10/22/17 07:11 3 ML Alprazolam (Xanax Tab) 0.25 mg DAILY PRN PO 10/20/17 15:30 11/19/17 15:29 Diltiazem HCl (Cardizem Cd Cap) 300 mg QAM PO 10/21/17 09:00 11/20/17 08:59 10/22/17 08:13 300 MG Salmeterol Xinafoate/ Fluticasone (Advair Diskus 250/50 Inh) 1 puff BID INH 10/20/17 21:00 11/19/17 20:59 10/22/17 08:12 1 PUFF Niacin (Niaspan Extended Rel Tab) 500 mg BID PO 10/20/17 21:00 11/19/17 20:59 10/22/17 08:13 500 MG Insulin Glargine (Lantus Solostar Pen) 10 units DAILY SC 10/21/17 09:00 11/20/17 08:59 10/22/17 08:18 10 UNITS Insulin Aspart (novoLOG ASPART) SLIDING SCALE G... ACHS SC 10/20/17 16:00 11/19/17 15:59 10/22/17 08:17 6 UNITS Miscellaneous Information (Consult) 1 ea UD PRN N/A 10/20/17 16:15 11/19/17 16:14 Objective Vital Signs Date Time Temp Pulse Resp B/P (MAP) Pulse Ox O2 Delivery O2 Flow Rate FiO2 10/22/17 08:00 Nasal Cannula 4.0 10/22/17 07:11 36.7 92 22 156/73 (100) 92 Nasal Cannula 4.0 10/22/17 07:11 77 20 91 Nasal Cannula 4.0 10/22/17 04:00 36.6 70 20 152/84 (106) 98 BiPAP 60 10/22/17 01:56 74 99 60 10/22/17 01:55 77 20 99 BiPAP/CPAP 60 10/21/17 23:38 36.6 82 20 154/82 (106) 100 CPAP 60 10/21/17 22:57 78 95 60 10/21/17 21:49 Nasal Cannula 4.0 10/21/17 21:48 92 Nasal Cannula 4.0 10/21/17 19:16 36.8 85 18 143/78 (99) 88 Nasal Cannula 3.0 10/21/17 18:51 108 18 93 Nasal Cannula 3.0 10/21/17 15:53 36.7 93 19 143/75 (97) 92 Nasal Cannula 5.0 10/21/17 14:12 82 18 85 Nasal Cannula 3.0 10/21/17 11:42 36.9 84 20 128/73 (91) 90 Nasal Cannula 3.0 Physical Exam General Appearance: no apparent distress (Was sitting up in a chair, resting comfortably watching tv on nasal cannula.) Respiratory/Chest: no respiratory distress, no accessory muscle use, + decreased breath sounds Cardiovascular: regular rate, rhythm, no murmur Laboratory Results 10/22/17 07:04 Red Blood Count 3.73, Mean Corpuscular Volume 95.7, Mean Corpuscular Hemoglobin 29.8, Mean Corpuscular Hemoglobin Concent 31.1, Mean Platelet Volume 9.5, Neutrophils (%) (Auto) 72.3, Lymphocytes (%) (Auto) 18.1, Monocytes (%) (Auto) 8.5, Eosinophils (%) (Auto) 0.5, Basophils (%) (Auto) 0.1, Neutrophils # (Auto) 7.50, Lymphocytes # (Auto) 1.87, Monocytes # (Auto) 0.88, Eosinophils # (Auto) 0.05, Basophils # (Auto) 0.01 10/22/17 07:04 Test 10/22/17 07:04 10/22/17 07:21 White Blood Count 10.36 K/uL (4.8-10.8) Red Blood Count 3.73 M/uL (4.2-5.4) Hemoglobin 11.1 g/dL (12.0-16.0) Hematocrit 35.7 % (37-47) Mean Corpuscular Volume 95.7 fL (80-100) Mean Corpuscular Hemoglobin 29.8 pg (25-34) Mean Corpuscular Hemoglobin Concent 31.1 g/dl (32-36) Platelet Count 320 K/uL (130-400) Mean Platelet Volume 9.5 fL (7.4-10.4) Neutrophils (%) (Auto) 72.3 % Lymphocytes (%) (Auto) 18.1 % Monocytes (%) (Auto) 8.5 % Eosinophils (%) (Auto) 0.5 % Basophils (%) (Auto) 0.1 % Neutrophils # (Auto) 7.50 K/uL (1.4-6.5) Lymphocytes # (Auto) 1.87 K/uL (1.2-3.4) Monocytes # (Auto) 0.88 K/uL (0.11-0.59) Eosinophils # (Auto) 0.05 K/uL (0-0.5) Basophils # (Auto) 0.01 K/uL (0-0.2) RDW Standard Deviation 47.4 fL (36.4-46.3) RDW Coefficient of Variation 13.6 % (11.5-14.5) Immature Granulocyte % (Auto) 0.5 % Immature Granulocyte # (Auto) 0.05 K/uL (0.00-0.02) Anion Gap 3.0 mmol/L (3-11) Est Creatinine Clear Calc Drug Dose 39.2 ml/min Estimated GFR () 50.5 Estimated GFR (Non- 43.6 BUN/Creatinine Ratio 24.3 (10-20) Calcium Level 8.7 mg/dl (8.5-10.1) Bedside Glucose 119 mg/dl (70-90) Assessment and Plan 77yo female with acute on chronic hypercapneic respiratory failure secondary to pneumonia and COPD exacerbation. Acute on chronic hypercapneic respiratory failure/COPD exacerbation -on bipap at night. hasn't needed it during the day. -Much improved. Oxygenating 91-92 on nasal cannula O2 -CO2 increased from yesterday however, will do another BMP -Continue treatment of IV steroids, duonebs q6h and albuterol prn. Possible Gram Negative Pneumonia in the setting of HCAP and immunosuppression -Blood cultures no growth so far -MRSA swab negative -Continue Vancomycin and Zosyn DM Lantus, Aspart sliding scale, continue to hold metformin HTN -continue cardizem and Niacin Anxiety -on prn Xanax DVT Prophylaxis -Levonox Resident Involvement: Resident Care Provided Care Provided: Adult Hospital Medicine Reviewed: Pt Seen/Exam by Me History breathing much improved less coughing. feels like at baseline Constitutional: denies: fever Cardiovascular: denies chest pain General Appearance: no apparent distress (sitting in chair) Respiratory: decreased breath sounds (but much better air entry) Cardiovascular: regular rate, rhythm Neurologic/Psychiatric: alert, oriented x 3 Skin Characteristics: warm/dry Assessment/Plan Resident Physician Supervision Note: I independently interviewed and examined the patient and verified the mondragon history and physical, reviewed labs and image studies, discussed the case with the resident Dr. Santana and agree with the findings and care plan.
[2017-10-22 12:59] LABS: CALCIUM 8.9 mg/dl (8.5-10.1); CREATININE 1.18 mg/dl (0.60-1.20); POTASSIUM 3.6 mmol/L (3.5-5.1)
[2017-10-22] MEDS: ENOXAPARIN 40 MG/0.4 ML SYR SC SCH (21:00)
[2017-10-23] VITALS (7 sets, daily range): BP systolic 136–155; BP diastolic 68–83; PULSE 73–93; TEMP 36.6–36.8; O2SAT 92–95
[2017-10-23] MEDS: ALBUT/IPRATROP 3MG/0.5MG NEB 3 ML VIAL NEB SCH ×3 (01:52→13:59)
[2017-10-23] MEDS: PIPERACILL/TAZOBAC IV 3.375 GM in DEXTROSE 5% 100ML 100 ML IV SCH ×2 (02:06→08:21)
[2017-10-23 05:45] LABS: BASO % 0.1 %; BASO ABS # 0.01 K/uL (0-0.2); EOS % 0.9 %; EOS ABS # 0.08 K/uL (0-0.5); HEMATOCRIT 38.4 % (37-47); HEMOGLOBIN 11.6 g/dL (12.0-16.0); IG# 0.06 K/uL (0.00-0.02); LYMPH % 20.9 %; LYMPH ABS # 1.79 K/uL (1.2-3.4); MEAN CELL VOLUME 96.7 fL (80-100); MEAN CORPUSCULAR HEMOGLOBIN 29.2 pg (25-34); MEAN CORPUSCULAR HGB CONC 30.2 g/dl (32-36); MEAN PLATELET VOLUME 9.4 fL (7.4-10.4); MONO % 9.6 %; MONO ABS # 0.82 K/uL (0.11-0.59); NEUT % 67.8 %; PLATELET COUNT 285 K/uL (130-400); RED CELL DISTRIBUTION WIDTH CV 13.7 % (11.5-14.5); RED CELL DISTRIBUTION WIDTH SD 48.9 fL (36.4-46.3); WHITE BLOOD COUNT 8.56 K/uL (4.8-10.8)
[2017-10-23 06:24] LABS: CALCIUM 8.4 mg/dl (8.5-10.1); CREATININE 1.01 mg/dl (0.60-1.20); POTASSIUM 3.6 mmol/L (3.5-5.1)
[2017-10-23] MEDS: FLUTICASONE/SALMETEROL 250/50 (ADVAIR) 14 PUFF/1 INHALER INH SCH (08:19)
[2017-10-23] MEDS: NIASPAN 500 MG TABCR PO SCH (08:20)
[2017-10-23] MEDS: DILTIAZEM HCL 300 MG CAPCR PO SCH (08:20)
[2017-10-23] MEDS: INSULIN ASPART 100 UNITS/ML 3 ML PEN SC SCH ×2 (08:24→12:07)
[2017-10-23] MEDS: INSULIN GLARGINE SOLOSTAR 100 UNITS/ML 3 ML PEN SC SCH (08:25)
--- NOTE | 2017-10-23 09:33 | Family Medicine Progress Note ---
Progress Note Date of Service Oct 23, 2017. Subjective Pt evaluation today including: conversation w/ patient, lab review Pt states that she has been up since 5AM this morning and feels a bit sleepy and tired as a result. Says she sleeps better at night with bipap. Denies SOB, chest pain or palpitations. Constitutional: + fatigue, No fever Respiratory: No wheezing, No shortness of breath, No dyspnea on exertion, No dyspnea at rest Cardiovascular: No chest pain, No palpitations Medications Current Inpatient Medications Medications (Trade) Dose Ordered Sig/Silvestre Route Start Time Stop Time Status Last Admin Dose Admin Enoxaparin Sodium (Lovenox Inj) 40 mg Q24H SC 10/20/17 21:00 11/19/17 20:59 10/22/17 21:00 40 MG Acetaminophen (Tylenol Tab) 650 mg Q4H PRN PO 10/20/17 15:15 11/19/17 15:14 Ondansetron HCl (Zofran Inj) 4 mg Q6H PRN IV 10/20/17 15:15 11/19/17 15:14 Piperacillin Sod/ Tazobactam Sod 3.375 gm/Dextrose 115 ml @ 28.75 mls/ hr Q8H IV 10/20/17 18:00 10/27/17 17:59 10/23/17 08:21 28.75 MLS/HR Albuterol Sulfate (Ventolin 0.083% 2.5MG/3ML Neb) 2.5 mg Q4H PRN INH 10/20/17 15:15 11/19/17 15:14 Albuterol/ Ipratropium (Duoneb) 3 ml Q6R NEB 10/20/17 21:00 11/19/17 20:59 10/23/17 07:12 3 ML Alprazolam (Xanax Tab) 0.25 mg DAILY PRN PO 10/20/17 15:30 11/19/17 15:29 Diltiazem HCl (Cardizem Cd Cap) 300 mg QAM PO 10/21/17 09:00 11/20/17 08:59 10/23/17 08:20 300 MG Salmeterol Xinafoate/ Fluticasone (Advair Diskus 250/50 Inh) 1 puff BID INH 10/20/17 21:00 11/19/17 20:59 10/23/17 08:19 1 PUFF Niacin (Niaspan Extended Rel Tab) 500 mg BID PO 10/20/17 21:00 11/19/17 20:59 10/23/17 08:20 500 MG Insulin Glargine (Lantus Solostar Pen) 10 units DAILY SC 10/21/17 09:00 11/20/17 08:59 10/23/17 08:25 10 UNITS Insulin Aspart (novoLOG ASPART) SLIDING SCALE G... ACHS SC 10/20/17 16:00 11/19/17 15:59 10/23/17 08:24 6 UNITS Miscellaneous Information (Consult) 1 ea UD PRN N/A 10/20/17 16:15 11/19/17 16:14 Objective Vital Signs Date Time Temp Pulse Resp B/P (MAP) Pulse Ox O2 Delivery O2 Flow Rate FiO2 10/23/17 07:12 93 20 95 Nasal Cannula 4.0 10/23/17 06:47 36.7 82 18 139/83 (101) 92 Nasal Cannula 4.0 10/23/17 03:26 36.6 83 18 155/68 (97) 94 Nasal Cannula 4.0 10/23/17 01:53 73 21 95 BiPAP/CPAP 60 10/23/17 01:53 73 95 40 10/22/17 23:38 36.8 83 20 146/74 (98) 94 CPAP 40 10/22/17 22:21 88 100 40 10/22/17 20:00 91 Nasal Cannula 4.0 10/22/17 19:45 36.8 95 20 126/71 (89) 91 Nasal Cannula 4.0 10/22/17 19:00 82 18 95 Nasal Cannula 4.0 10/22/17 15:55 36.8 84 18 127/74 (91) 92 Nasal Cannula 4.0 10/22/17 13:58 81 20 92 Nasal Cannula 4.0 10/22/17 11:32 36.7 82 20 134/76 (95) 92 Nasal Cannula 4.0 Physical Exam General Appearance: no apparent distress Eyes: normal inspection Neck: supple Respiratory/Chest: lungs clear, no respiratory distress, no accessory muscle use, + decreased breath sounds (on back, good air flow) Cardiovascular: regular rate, rhythm Neurologic/Psychiatric: oriented x 3 Skin: normal color Laboratory Results 10/23/17 05:27 Red Blood Count 3.97, Mean Corpuscular Volume 96.7, Mean Corpuscular Hemoglobin 29.2, Mean Corpuscular Hemoglobin Concent 30.2, Mean Platelet Volume 9.4, Neutrophils (%) (Auto) 67.8, Lymphocytes (%) (Auto) 20.9, Monocytes (%) (Auto) 9.6, Eosinophils (%) (Auto) 0.9, Basophils (%) (Auto) 0.1, Neutrophils # (Auto) 5.80, Lymphocytes # (Auto) 1.79, Monocytes # (Auto) 0.82, Eosinophils # (Auto) 0.08, Basophils # (Auto) 0.01 10/23/17 05:27 Test 10/23/17 05:27 10/23/17 07:19 White Blood Count 8.56 K/uL (4.8-10.8) Red Blood Count 3.97 M/uL (4.2-5.4) Hemoglobin 11.6 g/dL (12.0-16.0) Hematocrit 38.4 % (37-47) Mean Corpuscular Volume 96.7 fL (80-100) Mean Corpuscular Hemoglobin 29.2 pg (25-34) Mean Corpuscular Hemoglobin Concent 30.2 g/dl (32-36) Platelet Count 285 K/uL (130-400) Mean Platelet Volume 9.4 fL (7.4-10.4) Neutrophils (%) (Auto) 67.8 % Lymphocytes (%) (Auto) 20.9 % Monocytes (%) (Auto) 9.6 % Eosinophils (%) (Auto) 0.9 % Basophils (%) (Auto) 0.1 % Neutrophils # (Auto) 5.80 K/uL (1.4-6.5) Lymphocytes # (Auto) 1.79 K/uL (1.2-3.4) Monocytes # (Auto) 0.82 K/uL (0.11-0.59) Eosinophils # (Auto) 0.08 K/uL (0-0.5) Basophils # (Auto) 0.01 K/uL (0-0.2) RDW Standard Deviation 48.9 fL (36.4-46.3) RDW Coefficient of Variation 13.7 % (11.5-14.5) Immature Granulocyte % (Auto) 0.7 % Immature Granulocyte # (Auto) 0.06 K/uL (0.00-0.02) Anion Gap 2.0 mmol/L (3-11) Est Creatinine Clear Calc Drug Dose 44.5 ml/min Estimated GFR () 62.2 Estimated GFR (Non- 53.7 BUN/Creatinine Ratio 17.8 (10-20) Calcium Level 8.4 mg/dl (8.5-10.1) Bedside Glucose 131 mg/dl (70-90) Assessment and Plan 77yo female with acute on chronic hypercapneic respiratory failure secondary to pneumonia and COPD exacerbation. Acute on chronic hypercapneic respiratory failure/COPD exacerbation -On bipap at night. States she didn't use it last night. -Oxygenating 95 on 4L nasal cannula O2 -CO2 still increased -Continue treatment of IV steroids, duonebs q6h and albuterol prn. Possible Gram Negative Pneumonia in the setting of HCAP and immunosuppression -Blood cultures no growth so far -MRSA swab negative -Continue Zosyn DM Lantus, Aspart sliding scale, continue to hold metformin HTN -continue cardizem and Niacin Anxiety -on prn Xanax DVT Prophylaxis -Levonox Disposition: -Discharge likely today -Follow-up with PCP for hypercapnia workup; CO2 appears to be at baseline
--- NOTE | 2017-10-23 13:20 | Discharge Instructions ---
Discharge Instructions Date of Service Oct 23, 2017. Admission Reason for Admission: Acute/Chronic Respiratory Failure W/ Hypercapnia Discharge Discharge Diagnosis / Problem: Acute Respiratory Failure Discharge Goals Goal(s): Improve function Activity Recommendations Activity Limitations: resume your previous activity . Current Hospital Diet Patient's current hospital diet: Diabetes Type 2 Diet Discharge Diet Recommended Diet: AHA Diet (Heart Healthy), Low Sodium Diet (2gm Na) Pending Studies Studies pending at discharge: no Laboratory Results Hemoglobin A1c Test 10/20/17 12:25 Range/Units Estimated Average Glucose 151 mg/dl Hemoglobin A1c 6.9 H 4.5-5.6 % Lipid Panel Test 09/08/17 10:13 Range/Units Triglycerides Level 154 H 0-150 mg/dl Cholesterol Level 179 0-200 mg/dl HDL Cholesterol 44 mg/dl Cholesterol/HDL Ratio 4.1 LDL Cholesterol, Calculated 104 mg/dl Medical Emergencies . Who to Call and When: Medical Emergencies: If at any time you feel your situation is an emergency, please call 911 immediately. . Non-Emergent Contact Non-Emergency issues call your: Primary Care Provider . . "Provider Documentation" section prepared by Shyann Santana. .
[2017-10-23] MEDS ORDERED: AMOX875T PO (13:25)
--- NOTE | 2017-10-23 17:11 | Discharge Summary ---
Discharge Summary Date of Service Oct 23, 2017. Discharge Summary Admission Date: Oct 20, 2017 at 15:28 Discharge Date: Oct 23, 2017 Discharge Disposition: Home Principal Diagnosis: Acute Respiratory Failure Problems/Secondary Diagnoses: COPD exacerbation Pneumonia Diabetes Type II Hypertension Hyperlipidemia Anxiety Immunizations: Have You Had Influenza Vaccine: Unknown History of Tetanus Vaccine?: Unknown History of Pneumococcal: Unknown History of Hepatitis B Vaccine: Unknown Medication Reconciliation New Medications: Amoxicillin & Pot Clavulanate (Augmentin 875-125 mg) 1 Tab Tab 1 TAB PO BID for 7 Days, #14 TAB Continued Medications: Albuterol Sulf (Proventil 0.083% 2.5MG/3ML) 2.5 Mg/3 Ml Nebu 2.5 MG INH Q4-6H PRN for SOB/Wheezing Albuterol Sulfate (Proair Respiclick) 108 Mcg/Act Aer 2 PUFFS INH DAILY PRN for SOB/Wheezing Alprazolam (Xanax) 0.25 Mg Tab 0.25 MG PO DAILY PRN for Anxiety Cholecalciferol (Vitamin D3) 1,000 Unit Tab 1000 UNITS PO DAILY Cranberry (Vaccinium Macrocarp (Cranberry) 250 Mg Cap 250 MG PO UD Diltiazem Hcl Coated Beads (Diltiazem Hcl Er) 300 Mg Cap 300 MG PO QAM Fish Oil ([place]-3) 1 Ea Cap 1 CAP PO QAM Fluticasone Prop/Salmeterol (Advair Diskus 250/50 60 Dose) 1 Ea Aerp 1 PUFFS INH BID Metformin Hcl (Glucophage) 500 Mg Tab 500 MG PO BID Niacin Ext Rel (Niaspan Ext Rel) 500 Mg Tabcr 500 MG PO BID Prednisone (Prednisone) 5 Mg Tab 5 MG PO DAILY Vitamin E (Vitamin E) 1,000 Unit Cap 1000 UNITS PO QAM Discontinued Medications: Doxycycline Hyclate (Doxycycline Hyclate) 100 Mg Tab 1 TAB PO BID PRN for COLDS Discharge Exam Pt states that she has been up since 5AM this morning and feels a bit sleepy and tired as a result. Says she sleeps better at night with bipap even though she did not use it last night. Denies SOB, chest pain or palpitations. Review of Systems: Constitutional: + fatigue (from not sleeping as well last night), No fever Respiratory: No wheezing, No shortness of breath Cardiovascular: No chest pain, No palpitations Physical Exam: General Appearance: no apparent distress Eyes: normal inspection Neck: supple Respiratory/Chest: lungs clear, normal breath sounds, no respiratory distress, no accessory muscle use, + decreased breath sounds (on back, good air flow) Cardiovascular: regular rate, rhythm Neurologic/Psychiatric: oriented x 3 Skin: warm/dry Hospital Course Pt was a 77yo female admitted on Oct 20 for pneumonia and SOB in the setting of COPD. Her baseline was normal saturations on 2L of oxygen but she found that she was dyspneic on 3L, saturating at 79%. Presented to the ED with weakness as well. She was treated with 5L of O2 in the ED as well as nebulized with albuterol and Atrovent. Also received Solumedrol 125mg IV and was found to have bilateral lower lobe pneumonia on imaging as well. She was started on Vancomycin and Zosyn 4.5mg IV and blood cultures were drawn. While in the ED she became more hypoxic and was placed on Bipap. She is on bipap every night at home. Nasal cannula O2 was used during the day (4L). During her 5 day stay, her blood cultures came back with no growth and she was found to be MRSA negative. Vancomycin was stopped at that point but she continued on Zosyn. Her breathing improved, however her CO2 remained elevated. Her known diabetes was treated with Lantus, Aspart sliding scale and her home metformin was held. Her hypertension was treated with Cardizem and Niacin. Xanax was ordered PRN for her known hx of anxiety. Pt was discharged today Oct 23 with a prescription for Augmentin 875mg for 7days and counseled to continue using her oxygen and bipap at home, and to follow up with her PCP. Total Time Spent: Greater than 30 minutes This includes examination of the patient, discharge planning, medication reconciliation, and communication with other providers. Discharge Instructions Please refer to the electronic Patient Visit Report (Discharge Instructions) for additional information. Additional Copies To Matias Ram M.D.; Conrad Cole M.D. Reviewed: Pt Seen/Exam by Me History breathing much improved. Constitutional: denies: fever Cardiovascular: denies chest pain Gastrointestinal/Abdominal: negative: abdominal pain General Appearance: no apparent distress Respiratory: no respiratory distress, decreased breath sounds Cardiovascular: regular rate, rhythm Neurologic/Psychiatric: alert, oriented x 3 Skin Characteristics: warm/dry Assessment/Plan Resident Physician Supervision Note: I independently interviewed and examined the patient and verified the mondragon history and physical, reviewed labs and image studies, discussed the case with the resident Dr. Santana and agree with the findings and care plan. Time spent in discharge 40min
== END 2017-10-23 14:55 | disposition home health service (06) | DRG 177 ==
LOC: C.EDB 11:57 → C.2T 15:28 → ENRESERV 15:38
PROVIDERS: ADMIT Family Medicine; ATTEND Family Medicine
DX: J15.6 Pneumonia due to other Gram-negative bacteria (principal); J96.22 Acute and chronic respiratory failure with hypercapnia; J44.1 Chronic obstructive pulmonary disease with (acute) exacerbation; J44.0 Chronic obstructive pulmonary disease with (acute) lower respiratory infection; Y95 Nosocomial condition; E11.9 Type 2 diabetes mellitus without complications; I10 Essential (primary) hypertension; E78.5 Hyperlipidemia, unspecified; F41.9 Anxiety disorder, unspecified; Z66 Do not resuscitate; Z99.81 Dependence on supplemental oxygen; Z87.891 Personal history of nicotine dependence; Z79.52 Long term (current) use of systemic steroids; Z79.84 Long term (current) use of oral hypoglycemic drugs; Z79.899 Other long term (current) drug therapy

== ENCOUNTER 2017-11-08 12:19 | Inpatient (IN) | payer OTHER ==
[2017-11-08] VITALS (13 sets, daily range): BP systolic 123–147; BP diastolic 68–74; PULSE 75–108; TEMP 36.7–37; O2SAT 93–97; Ht 162.6 cm; Wt 64.5 kg
[~2017-11-08] VITALS: Ht 162.6 cm; Wt 64.5 kg
[~2017-11-08 12:19] MED LIST changes: -DOXY100T PO; -PRD10 PO; -UMEC1INH INH
[2017-11-08] MEDS ORDERED: METHYLPREDNISOLONE 125 MG VIAL IV STA (12:40)
[2017-11-08] MEDS ORDERED: CEFTRIAXONE SOD INJ 1 GM ADDVIAL IV STA (12:40)
[2017-11-08] MEDS ORDERED: ALBUT/IPRATROP 3MG/0.5MG NEB 3 ML VIAL INH STA (12:40)
[2017-11-08 13:06] LABS: BASO % 0.1 %; BASO ABS # 0.01 K/uL (0-0.2); EOS % 0.4 %; EOS ABS # 0.04 K/uL (0-0.5); HEMATOCRIT 41.9 % (37-47); HEMOGLOBIN 12.3 g/dL (12.0-16.0); IG# 0.02 K/uL (0.00-0.02); LYMPH % 3.7 %; LYMPH ABS # 0.41 K/uL (1.2-3.4); MEAN CORPUSCULAR HEMOGLOBIN 28.5 pg (25-34); MEAN CORPUSCULAR HGB CONC 29.4 g/dl (32-36); MEAN PLATELET VOLUME 10.2 fL (7.4-10.4); MONO ABS # 0.77 K/uL (0.11-0.59); NEUT % 88.6 %; NEUT ABS # 9.79 K/uL (1.4-6.5); PLATELET COUNT 188 K/uL (130-400); RED CELL DISTRIBUTION WIDTH CV 14.2 % (11.5-14.5); RED CELL DISTRIBUTION WIDTH SD 50.4 fL (36.4-46.3); WHITE BLOOD COUNT 11.04 K/uL (4.8-10.8)
[2017-11-08 13:14] LABS: PTT PATIENT 24.9 SECONDS (21.0-31.0)
--- NOTE | 2017-11-08 13:17 | DIAGNOSTIC IMAGING REPORT ---
CHEST ONE VIEW PORTABLE CLINICAL HISTORY: 77 years-old Female presenting with EVALUATE RESPIRATORY DISTRESS.DYSPNEA. TECHNIQUE: Portable upright AP view of the chest was obtained. COMPARISON: 10/20/2017. FINDINGS: Atherosclerosis of the aortic arch. Cardiac silhouette enlarged. Interval decrease in left basilar opacity and heterogeneity of lung parenchyma. Hyperinflation of the right lung. Suggestion of nodular opacities at the right lung base though these may be vascular. Small left pleural effusion. No pneumothorax. Osseous structures normal. Upper abdomen normal. IMPRESSION: 1. Improved aeration of the left lung base with persistent left basilar consolidation and left pleural effusion. Pneumonia not excluded. 2. Suspected underlying emphysema. 3. Mild cardiomegaly. Electronically signed by: Fam Stauffer M.D. 11/08/2017 1:15 PM Dictated Date/Time: 11/08/2017 1:14 PM
[2017-11-08 13:21] LABS: ALBUMIN 3.5 gm/dl (3.4-5.0); ALKALINE PHOSPHATASE 143 U/L (45-117); ALT/SGPT 35 U/L (12-78); AST/SGOT 24 U/L (15-37); BLOOD UREA NITROGEN 16 mg/dl (7-18); CALCIUM 9.5 mg/dl (8.5-10.1); CARBON DIOXIDE 40 mmol/L (21-32); CREATININE 0.75 mg/dl (0.60-1.20); GLUCOSE 164 mg/dl (70-99); POTASSIUM 3.5 mmol/L (3.5-5.1); SODIUM 141 mmol/L (136-145); TOTAL PROTEIN 7.8 gm/dl (6.4-8.2)
[2017-11-08] MEDS ORDERED: ONDANSETRON INJ 2 MG/ML 2 ML VIAL IV PRN (14:15)
[2017-11-08] MEDS ORDERED: ALBUT/IPRATROP 3MG/0.5MG NEB 3 ML VIAL NEB PRN (14:15)
[2017-11-08] MEDS ORDERED: NON-FORMULARY MEDICATION (Albuterol Sulfate (Proair Respiclick) 2 PUFFS) INH PRN (14:15)
[2017-11-08] MEDS ORDERED: ACETAMINOPHEN 325 MG TAB PO PRN (14:15)
[2017-11-08] MEDS ORDERED: ALBUTEROL 0.083% NEBU SOLN 3 ML VIAL INH PRN (14:15)
[2017-11-08] MEDS ORDERED: CRANBERRY PO SCH (14:15)
[2017-11-08] MEDS ORDERED: VANCOMYCIN CONSULT ACTIVE PRN (14:15)
[2017-11-08] MEDS ORDERED: MAGNESIUM HYDROXIDE SUSP 30 ML UDC PO PRN (14:15)
--- NOTE | 2017-11-08 14:33 | History and Physical ---
History & Physical Date & Time of Service: Nov 08, 2017 at 14:19 Chief Complaint: SOB Primary Care Physician: Matias Ram M.D. History of Present Illness Source: patient, spouse 77 y/o F c/o SOB. Pt states she woke up this AM and felt fine. She had cereal for breakfast without issue. She started moving around her home and became SOB on her baseline O2. She attempted to use her nebulizer, but there was a power outage and she was unable to do so. Pt has scheduled HHN who arrived and found her O2 sats to be in the 60s. She was advised to come to the ED at that time. Pt states that she feels fine otherwise. Yesterday was a usual day for her and she was able to take care of her usual day, including ambulation and moving about her home. She has been eating without issue. Pt denies fever, chest pain , abd pain, n/v/c/d, LE pain or swelling. Pt was initially assessed to have very little air movement by the ED physician. She was started on BIPAP and Q1hr nebs. She denies current SOB. Pt was a recent d/c from [facility] on 10/23 for COPD exacerbation with PNA. She states she finished her augmentin as ordered and was doing fine at home until this morning. Her states that HHN turned her O2 down from 3L to 2L last week. Past Medical/Surgical History COPD, O2 dependent on 2-3L with chronic steroid therapy HTN DM Hyperlipidemia Family History Family history was reviewed; no changes noted. Social History Smoking Status: Former Smoker (quit in 1998) Alcohol Use: none Drug Use: none Marital Status: Housing status: lives with family Occupational Status: retired Immunizations History of Influenza Vaccine: Unknown History of Tetanus Vaccine?: Unknown History of Pneumococcal: Unknown History of Hepatitis B Vaccine: Unknown Allergies Coded Allergies: No Known Allergies (Unverified , 11/08/17) Home Medications Scheduled Cholecalciferol (Vitamin D3), 1,000 UNITS PO DAILY Cranberry (Vaccinium Macrocarp (Cranberry), 250 MG PO UD Diltiazem Hcl Coated Beads (Diltiazem Hcl Er), 300 MG PO QAM Fish Oil ([place]-3), 1 CAP PO QAM Fluticasone Prop/Salmeterol (Advair Diskus 250/50 60 Dose), 1 PUFFS INH BID Metformin Hcl (Glucophage), 500 MG PO BID Niacin Ext Rel (Niaspan Ext Rel), 500 MG PO BID Prednisone (Prednisone), 5 MG PO DAILY Vitamin E (Vitamin E), 1,000 UNITS PO QAM Scheduled PRN Albuterol Sulf (Proventil 0.083% 2.5MG/3ML), 2.5 MG INH Q4-6H PRN for SOB/ Wheezing Albuterol Sulfate (Proair Respiclick), 2 PUFFS INH DAILY PRN for SOB/Wheezing Alprazolam (Xanax), 0.25 MG PO DAILY PRN for Anxiety Review of Systems Pertinent positives and negatives reviewed in HPI--all others negative Physical Exam Vital Signs Date Time Temp Pulse Resp B/P (MAP) Pulse Ox O2 Delivery O2 Flow Rate FiO2 11/08/17 14:05 93 BiPAP 4.0 60 11/08/17 14:00 95 28 140/69 93 BiPAP Nebulizer 11/08/17 13:18 100 32 142/68 93 BiPAP Nebulizer 11/08/17 13:08 29 93 BiPAP Nebulizer 11/08/17 13:06 31 93 BiPAP Nebulizer 11/08/17 12:55 94 BiPAP 11/08/17 12:55 94 BiPAP 11/08/17 12:55 105 28 93 BiPAP/CPAP 60 11/08/17 12:50 108 93 60 11/08/17 12:42 107 11/08/17 12:25 37.0 110 24 146/72 83 Nasal Cannula 4.0 General Appearance: WD/WN, no apparent distress Head: normocephalic, atraumatic Eyes: normal inspection, sclerae normal Respiratory/Chest: no respiratory distress, + decreased breath sounds, + wheezing (scant and minimal) Cardiovascular: regular rate, rhythm, no edema Abdomen/GI: non tender, soft Extremities/Musculoskelatal: no calf tenderness, no pedal edema Neurologic/Psych: alert, normal mood/affect, oriented x 3 Skin: normal color, warm/dry Diagnostics Laboratory Results Results Past 24 Hours Test 11/08/17 12:50 Range/Units White Blood Count 11.04 4.8-10.8 K/uL Red Blood Count 4.32 4.2-5.4 M/uL Hemoglobin 12.3 12.0-16.0 g/dL Hematocrit 41.9 37-47 % Mean Corpuscular Volume 97.0 80-100 fL Mean Corpuscular Hemoglobin 28.5 25-34 pg Mean Corpuscular Hemoglobin Concent 29.4 32-36 g/dl Platelet Count 188 130-400 K/uL Mean Platelet Volume 10.2 7.4-10.4 fL Neutrophils (%) (Auto) 88.6 % Lymphocytes (%) (Auto) 3.7 % Monocytes (%) (Auto) 7.0 % Eosinophils (%) (Auto) 0.4 % Basophils (%) (Auto) 0.1 % Neutrophils # (Auto) 9.79 1.4-6.5 K/uL Lymphocytes # (Auto) 0.41 1.2-3.4 K/uL Monocytes # (Auto) 0.77 0.11-0.59 K/uL Eosinophils # (Auto) 0.04 0-0.5 K/uL Basophils # (Auto) 0.01 0-0.2 K/uL RDW Standard Deviation 50.4 36.4-46.3 fL RDW Coefficient of Variation 14.2 11.5-14.5 % Immature Granulocyte % (Auto) 0.2 % Immature Granulocyte # (Auto) 0.02 0.00-0.02 K/uL Prothrombin Time 10.5 9.0-12.0 SECONDS Prothromb Time International Ratio 1.0 0.9-1.1 Activated Partial Thromboplast Time 24.9 21.0-31.0 SECONDS Partial Thromboplastin Ratio 1.0 Sodium Level 141 136-145 mmol/L Potassium Level 3.5 3.5-5.1 mmol/L Chloride Level 96 98-107 mmol/L Carbon Dioxide Level 40 21-32 mmol/L Anion Gap 5.0 3-11 mmol/L Blood Urea Nitrogen 16 7-18 mg/dl Creatinine 0.75 0.60-1.20 mg/dl Est Creatinine Clear Calc Drug Dose 54.3 ml/min Estimated GFR () 89.1 Estimated GFR (Non- 76.9 BUN/Creatinine Ratio 21.2 10-20 Random Glucose 164 70-99 mg/dl Calcium Level 9.5 8.5-10.1 mg/dl Total Bilirubin 0.9 0.2-1 mg/dl Aspartate Amino Transf (AST/SGOT) 24 15-37 U/L Alanine Aminotransferase (ALT/SGPT) 35 12-78 U/L Alkaline Phosphatase 143 45-117 U/L Troponin I < 0.015 0-0.045 ng/ml Total Protein 7.8 6.4-8.2 gm/dl Albumin 3.5 3.4-5.0 gm/dl Globulin 4.3 2.5-4.0 gm/dl Albumin/Globulin Ratio 0.8 0.9-2 Microbiology Results 11/08/17 Blood Culture, Received Pending 11/08/17 Blood Culture, Received Pending Diagnostic Radiology CXR: ?? L base PNA EKG Sinus tachy Impression Assessment and Plan 77 y/o F who was admitted on 11/08 with COPD and possible HAP Hypoxia with acute on chronic respiratory failure: noted by HHN and ED staff Improving s/p BIPAP, nebs Q1h, steroids Wean BIPAP as able, steroids to 60mg TID, xopenex Pt with home nebs, however unable to use them due to power outage Trop neg, EKG sinus tachy ??HAP: ?? PNA noted on CXR with recent d/c on 10/23 Finished course of augmentin after d/c Will treat with vanco, cefepime, levaquin as per hospital policy and can wean abx as able Blood cx pending WBC is mildly elevated in the setting of daily prednisone use HTN: stable, continue home meds DM: Stable, continue home meds SSI PRN A1c 6.9 earlier this month Hyperlipidemia: continue home meds Xanax noted in EHR, however pt states she does not take this--will not order Other: DNR/DNI per and pt agrees. Specifically that if her breathing were to worsen, she is fine with BIPAP but does not want intubated DM diet once weaned from BIPAP Heparin for DVT proph CM alerted, pt is active with [facility] Advanced Directives Existing Living Will: No Existing Power of Board Writer: No Resuscitation Status VTE Prophylaxis Will order VTE Prophylaxis: Yes Additional Copies To Matias Ram M.D.
[2017-11-08] MEDS ORDERED: LEVOFLOXACIN / D5W 750 MG in PREMIXED IN D5W 150 ML IV SCH (16:00)
[2017-11-08] MEDS ORDERED: VANCOMYCIN IV 1,500 MG in SODIUM CHLORIDE 0.9% 500ML 500 ML IV ONE (16:00)
[2017-11-08] MEDS ORDERED: DEXTROSE 50% 50 ML SYR IV PRN (16:15)
[2017-11-08] MEDS ORDERED: CARBOHYDRATES FOR HYPOGLYCEMIA PO PRN (16:15)
[2017-11-08] MEDS ORDERED: GLUCAGON FOR INJ 1 MG VIAL IM PRN (16:15)
[2017-11-08] MEDS ORDERED: GLUCOSE 40% GEL 15 GM TUBE PO PRN (16:15)
[2017-11-08] MEDS ORDERED: GLUCOSE 10 TABS/TUBE PO PRN (16:15)
--- NOTE | 2017-11-08 16:30 | Pharmacy Progress Note ---
Pharmacy Abx Initial Consult Date of Service Nov 08, 2017. Pharmacy Dosing Scope Date of Consult: 11/08/2017 Consultation requested by: Dr. Mariela Storm Pharmacy is consulted to initiate Vancomycin IV dosing therapy, order appropriate labs and adjust drug dose/frequency. Subjective The patient is a 77 year old female admitted on Nov 08, 2017 at 14:12. Objective Height (Feet): 5 Height (Inches): 4.00 Weight (Kilograms): 64.400 Vital Signs (Past 12Hrs) Vital Signs Past 12 Hours Date Time Temp Pulse Resp B/P (MAP) Pulse Ox O2 Delivery O2 Flow Rate FiO2 11/08/17 15:46 36.9 99 20 147/70 (95) 93 BiPAP 60 11/08/17 15:37 94 31 93 BiPAP/CPAP 60 11/08/17 15:37 94 93 60 11/08/17 14:20 96 29 148/64 93 BiPAP Nebulizer 11/08/17 14:05 93 BiPAP 4.0 60 11/08/17 14:00 95 28 140/69 93 BiPAP Nebulizer 11/08/17 13:18 100 32 142/68 93 BiPAP Nebulizer 11/08/17 13:08 29 93 BiPAP Nebulizer 11/08/17 13:06 31 93 BiPAP Nebulizer 11/08/17 12:55 94 BiPAP 11/08/17 12:55 94 BiPAP 11/08/17 12:55 105 28 93 BiPAP/CPAP 60 11/08/17 12:50 108 93 60 11/08/17 12:42 107 11/08/17 12:25 37.0 110 24 146/72 83 Nasal Cannula 4.0 Lab Results (24Hrs) Laboratory Tests (24 Hours) Test 11/08/17 12:50 White Blood Count 11.04 K/uL (4.8-10.8) H Red Blood Count 4.32 M/uL (4.2-5.4) Hemoglobin 12.3 g/dL (12.0-16.0) Hematocrit 41.9 % (37-47) Mean Corpuscular Volume 97.0 fL (80-100) Mean Corpuscular Hemoglobin 28.5 pg (25-34) Mean Corpuscular Hemoglobin Concent 29.4 g/dl (32-36) L Platelet Count 188 K/uL (130-400) Mean Platelet Volume 10.2 fL (7.4-10.4) Neutrophils (%) (Auto) 88.6 % Lymphocytes (%) (Auto) 3.7 % Monocytes (%) (Auto) 7.0 % Eosinophils (%) (Auto) 0.4 % Basophils (%) (Auto) 0.1 % Neutrophils # (Auto) 9.79 K/uL (1.4-6.5) H Lymphocytes # (Auto) 0.41 K/uL (1.2-3.4) L Monocytes # (Auto) 0.77 K/uL (0.11-0.59) H Eosinophils # (Auto) 0.04 K/uL (0-0.5) Basophils # (Auto) 0.01 K/uL (0-0.2) Micro Results Date/Time Source Procedure Growth Status 11/08/17 13:00 Blood Blood Culture Pending Received 11/08/17 12:50 Blood Blood Culture Pending Received 11/08/17 15:28 Nasal MRSA DNA Surveillance Screen Pending Received Risk Factors for Resistance * Hospitalization for 48 hours or more within the past 90 days (recently admitted on 10/20 for CAP) * Immunocompromised (chronic steroid therapy- Prednisone 5mg QD) * Antimicrobial use within the last 90 days (Augmentin) Assessment & Plan Assessment 77 year old female with hx of COPD admitted for possible HAP. Patient also started on levaquin 750mg q24h and Cefepime 2g q8 (not consulted) Item Value Date Time Creatinine 0.75 mg/dl 11/08/17 1250 Est Creatinine Clear Calc Drug Dose 54.3 ml/min 11/08/17 1250 Plan Vancomycin for treatment of nosocomial pneumonia, pending MRSA swab. Vancomycin IV * Loading dose: 1500 mg IV (25 mg/kg) * Maintenance dose: 1000 mg IV (15 mg/kg) every 16 hours * Goal trough level for 15 to 20 mcg/mL * Estimated PK Parameters: ke: 0.049 hr-1, T1/2: ~14hrs * Will check MRSA swab results to determine if continuation of vancomycin is necessary. * Will order trough after 3-4 doses if therapy continues. Pharmacy will continue to follow and will adjust dose/frequency as necessary. Thank you.
--- NOTE | 2017-11-08 16:42 | EMERGENCY ROOM VISIT NOTE ---
History Report prepared by Luis: Jeffrey Aguilar Under the Supervision of: Dr. John Starr M.D. First contact with patient: 12:33 Chief Complaint: SHORTNESS OF BREATH Stated Complaint: SOB Nursing Triage Summary: pt reports sob and low o2 sats sent here by home health nurse d/t o2 sat at 66% at 2l nc History of Present Illness The patient is a 77 year old female who presents to the Emergency Room with complaints of worsening shortness of breath beginning this morning. [facility] [address] reports that the patient had low oxygen saturation this morning. The patient reports a history of COPD, but states that her shortness of breath has been worse than usual since this morning. She denies any problems yesterday. She states that she is on oxygen all the time and has been taking all of her prescribed treatments, except for not using a nebulizer this morning. She notes that she instead used it before coming to the ER, which improved her symptoms. She denies fevers or increased cough. She reports that her PCP is Dr. Ram from [facility]. She states that she has used BiPAP in the past. Source of History: patient Onset: this morning Position: other (lungs) Quality: other (shortness of breath) Timing: worsening Modifying Factors (Relieving): other (nebulizer) Associated Symptoms: No fevers Note: denies worsened cough Review of Systems See HPI for pertinent positives & negatives. A total of 10 systems reviewed and were otherwise negative. Past Medical & Surgical Medical Problems: (1) Acute and chronic respiratory failure with hypercapnia (2) COPD exacerbation (3) Falls frequently (4) HTN (hypertension) Family History Diabetes mellitus Myocardial infarction at age less than 60 FATHER, , Age:40's - 50, Onset:40's - 50 Social History Smoking Status: Former Smoker Drug Use: none Marital Status: Housing Status: lives with family Occupation Status: retired Current/Historical Medications Scheduled Cholecalciferol (Vitamin D3), 1,000 UNITS PO DAILY Cranberry (Vaccinium Macrocarp (Cranberry), 250 MG PO UD Diltiazem Hcl Coated Beads (Diltiazem Hcl Er), 300 MG PO QAM Fish Oil (Golden-3), 1 CAP PO QAM Fluticasone Prop/Salmeterol (Advair Diskus 250/50 60 Dose), 1 PUFFS INH BID Metformin Hcl (Glucophage), 500 MG PO BID Niacin Ext Rel (Niaspan Ext Rel), 500 MG PO BID Prednisone (Prednisone), 5 MG PO DAILY Vitamin E (Vitamin E), 1,000 UNITS PO QAM Scheduled PRN Albuterol Sulf (Proventil 0.083% 2.5MG/3ML), 2.5 MG INH Q4-6H PRN for SOB/ Wheezing Albuterol Sulfate (Proair Respiclick), 2 PUFFS INH DAILY PRN for SOB/Wheezing Alprazolam (Xanax), 0.25 MG PO DAILY PRN for Anxiety Allergies Coded Allergies: No Known Allergies (Unverified , 11/08/17) Physical Exam Vital Signs Date Time Temp Pulse Resp B/P (MAP) Pulse Ox O2 Delivery O2 Flow Rate FiO2 11/08/17 14:05 93 BiPAP 4.0 60 11/08/17 14:00 95 28 140/69 93 BiPAP Nebulizer 11/08/17 13:18 100 32 142/68 93 BiPAP Nebulizer 11/08/17 13:08 29 93 BiPAP Nebulizer 11/08/17 13:06 31 93 BiPAP Nebulizer 11/08/17 12:55 94 BiPAP 11/08/17 12:55 94 BiPAP 11/08/17 12:55 105 28 93 BiPAP/CPAP 60 11/08/17 12:50 108 93 60 11/08/17 12:42 107 11/08/17 12:25 37.0 110 24 146/72 83 Nasal Cannula 4.0 Physical Exam GENERAL: Patient is in no acute distress. HEENT: No acute trauma, normocephalic atraumatic, mucous membranes moist, no nasal congestion, no scleral icterus. NECK: No stridor, no adenopathy, no meningismus, trachea is midline. LUNGS: Equal breath sounds. No respiratory distress. Breath sounds diminished bilaterally. HEART: Mildly tachycardic with an occasional extra beat. No murmurs ABDOMEN: Soft, nontender, bowel sounds positive, no hernias, no peritonitis. EXTREMITIES: No cyanosis or edema, full range of motion of all the joints without pain or difficulty, no signs for acute trauma. NEUROLOGIC: Oriented x 3, no acute motor or sensory deficits, no focal weakness. SKIN: No rash, no jaundice, no diaphoresis. Medical Decision & Procedures ER Provider Diagnostic Interpretation: Radiology results as stated below per my review and radiologist interpretation: CHEST ONE VIEW PORTABLE CLINICAL HISTORY: 77 years-old Female presenting with EVALUATE RESPIRATORY DISTRESS.DYSPNEA. TECHNIQUE: Portable upright AP view of the chest was obtained. COMPARISON: 10/20/2017. FINDINGS: Atherosclerosis of the aortic arch. Cardiac silhouette enlarged. Interval decrease in left basilar opacity and heterogeneity of lung parenchyma. Hyperinflation of the right lung. Suggestion of nodular opacities at the right lung base though these may be vascular. Small left pleural effusion. No pneumothorax. Osseous structures normal. Upper abdomen normal. IMPRESSION: 1. Improved aeration of the left lung base with persistent left basilar consolidation and left pleural effusion. Pneumonia not excluded. 2. Suspected underlying emphysema. 3. Mild cardiomegaly. Electronically signed by: Fam Stauffer M.D. 11/08/2017 1:15 PM Dictated Date/Time: 11/08/2017 1:14 PM Laboratory Results 11/08/17 12:50 Red Blood Count 4.32, Mean Corpuscular Volume 97.0, Mean Corpuscular Hemoglobin 28.5, Mean Corpuscular Hemoglobin Concent 29.4, Mean Platelet Volume 10.2, Neutrophils (%) (Auto) 88.6, Lymphocytes (%) (Auto) 3.7, Monocytes (%) (Auto) 7.0, Eosinophils (%) (Auto) 0.4, Basophils (%) (Auto) 0.1, Neutrophils # (Auto) 9.79, Lymphocytes # (Auto) 0.41, Monocytes # (Auto) 0.77, Eosinophils # (Auto) 0.04, Basophils # (Auto) 0.01 11/08/17 12:50 Test 11/08/17 12:50 White Blood Count 11.04 K/uL (4.8-10.8) Red Blood Count 4.32 M/uL (4.2-5.4) Hemoglobin 12.3 g/dL (12.0-16.0) Hematocrit 41.9 % (37-47) Mean Corpuscular Volume 97.0 fL (80-100) Mean Corpuscular Hemoglobin 28.5 pg (25-34) Mean Corpuscular Hemoglobin Concent 29.4 g/dl (32-36) Platelet Count 188 K/uL (130-400) Mean Platelet Volume 10.2 fL (7.4-10.4) Neutrophils (%) (Auto) 88.6 % Lymphocytes (%) (Auto) 3.7 % Monocytes (%) (Auto) 7.0 % Eosinophils (%) (Auto) 0.4 % Basophils (%) (Auto) 0.1 % Neutrophils # (Auto) 9.79 K/uL (1.4-6.5) Lymphocytes # (Auto) 0.41 K/uL (1.2-3.4) Monocytes # (Auto) 0.77 K/uL (0.11-0.59) Eosinophils # (Auto) 0.04 K/uL (0-0.5) Basophils # (Auto) 0.01 K/uL (0-0.2) RDW Standard Deviation 50.4 fL (36.4-46.3) RDW Coefficient of Variation 14.2 % (11.5-14.5) Immature Granulocyte % (Auto) 0.2 % Immature Granulocyte # (Auto) 0.02 K/uL (0.00-0.02) Prothrombin Time 10.5 SECONDS (9.0-12.0) Prothromb Time International Ratio 1.0 (0.9-1.1) Activated Partial Thromboplast Time 24.9 SECONDS (21.0-31.0) Partial Thromboplastin Ratio 1.0 Anion Gap 5.0 mmol/L (3-11) Est Creatinine Clear Calc Drug Dose 54.3 ml/min Estimated GFR () 89.1 Estimated GFR (Non- 76.9 BUN/Creatinine Ratio 21.2 (10-20) Calcium Level 9.5 mg/dl (8.5-10.1) Total Bilirubin 0.9 mg/dl (0.2-1) Aspartate Amino Transf (AST/SGOT) 24 U/L (15-37) Alanine Aminotransferase (ALT/SGPT) 35 U/L (12-78) Alkaline Phosphatase 143 U/L (45-117) Troponin I < 0.015 ng/ml (0-0.045) Total Protein 7.8 gm/dl (6.4-8.2) Albumin 3.5 gm/dl (3.4-5.0) Globulin 4.3 gm/dl (2.5-4.0) Albumin/Globulin Ratio 0.8 (0.9-2) Laboratory results reviewed by me. Medications Administered Medications (Trade) Dose Ordered Sig/Silvestre Route Start Time Stop Time Status Last Admin Dose Admin Albuterol/ Ipratropium (Duoneb) 12 ml NOW STAT INH 11/08/17 12:40 11/08/17 12:43 DC 11/08/17 12:49 12 ML Methylprednisolone Sodium Succinate (Solu-Medrol IV) 125 mg NOW STAT IV 11/08/17 12:40 11/08/17 12:43 DC 11/08/17 12:57 125 MG Ceftriaxone Sodium (Rocephin Inj) 1 gm NOW STAT IV 11/08/17 12:40 11/08/17 12:43 DC 11/08/17 13:02 1 GM ECG Per My Interpretation Indication: SOB/dyspnea Rate (beats per minute): 105 Rhythm: sinus tachycardia Findings: other (Poor R-wave progression. No ST elevation. No PVCs.) ED Course 1238: The patient was evaluated in room B3B. A complete history and physical exam was performed. 1240: Ordered Rocephin 1 gm IV, Solu-Medrol 125 mg IV, Duoneb 12 ml INH 1337: I consulted Dr. Storm - [facility] Hospitalist. She will reevaluate the patient for hospitalization. 1341: I updated with the patient, who states she is currently doing better. Medical Decision Differential diagnosis: exacerbation of COPD, pneumonia, CHF, pneumothorax, PE, anemia, myocardial infarction, bronchitis There is a very mild leukocytosis, this could be consistent with infection, stress or just her prednisone use. No concerning anemia. No significant electrolyte abnormality, kidney failure or hepatitis. EKG shows a sinus tachycardia, no acute ischemic change. Cardiac enzyme testing 1 is not consistent with acute cardiac injury. Blood cultures are pending. Chest x-ray shows some chronic change and chronic findings, no pneumonia, no pneumothorax, no CHF. The patient presents with what seems like bronchitis and an exacerbation of COPD. She was hypoxic when initially evaluated outside the hospital. She was hypoxic when she arrived at the ED. She was placed on BiPAP with a DuoNeb, she has done well with this treatment. She received IV Solu-Medrol and IV ceftriaxone. I do think a hospital stay is warranted. 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 The on-call hospitalist was consulted. Medication Reconcilliation Current Medication List: was personally reviewed by me Blood Pressure Screening Patient's blood pressure: Elevated blood pressure referred to hospitalist Consults Time Called: 1332 Consulting Physician: Dr. Emeterio Newton [facility] Hospitalist Returned Call: [phone] Storm [facility] Hospitalist. She will reevaluate the patient for hospitalization. Impression Primary Impression: Hypoxia Additional Impressions: COPD exacerbation Shortness of breath Scribe Attestation The scribe's documentation has been prepared under my direction and personally reviewed by me in its entirety. I confirm that the note above accurately reflects all work, treatment, procedures, and medical decision making performed by me. Departure Information Dispostion Being Evaluated By Hospitalist Referrals Matias Ram M.D. (PCP) Patient Instructions My [facility] Problem Qualifiers
[2017-11-08] MEDS: CEFEPIME IV 2,000 MG in SYRINGE 7.5 ML IV SCH (17:32)
[2017-11-08] MEDS: INSULIN ASPART 100 UNITS/ML 3 ML PEN SC SCH ×2 (17:34→21:06)
[2017-11-08] MEDS: LEVALBUTEROL 1.25MG/0.5ML NEB INH SCH ×2 (19:08→22:52)
[2017-11-08] MEDS: NIASPAN 500 MG TABCR PO SCH (21:04)
[2017-11-08] MEDS: HEPARIN SOD 5000 UNIT/0.5 ML CARP SQ SCH (21:07)
[2017-11-08] MEDS: FLUTICASONE/SALMETEROL 250/50 (ADVAIR) 14 PUFF/1 INHALER INH SCH (21:08)
[2017-11-08] MEDS: METHYLPREDNISOLONE IV 60 MG in SYRINGE 0 ML IV SCH (21:08)
[2017-11-09] VITALS (15 sets, daily range): BP systolic 125–152; BP diastolic 65–77; PULSE 78–116; TEMP 36.4–36.9; O2SAT 92–96
[2017-11-09] MEDS: CEFEPIME IV 2,000 MG in SYRINGE 7.5 ML IV SCH ×2 (02:16→11:00)
[2017-11-09] MEDS: LEVALBUTEROL 1.25MG/0.5ML NEB INH SCH ×6 (03:22→23:14)
[2017-11-09] MEDS: METHYLPREDNISOLONE IV 60 MG in SYRINGE 0 ML IV SCH ×3 (05:23→21:32)
[2017-11-09] MEDS: HEPARIN SOD 5000 UNIT/0.5 ML CARP SQ SCH ×3 (05:24→21:35)
[2017-11-09 07:26] LABS: CREATININE 0.74 mg/dl (0.60-1.20)
[2017-11-09] MEDS: TOCOPHERYL, DL-ALPHA 100 INTERUNIT CAP PO SCH (07:50)
[2017-11-09] MEDS: CHOLECALCIFEROL 1000 INTER.UNIT TAB PO SCH (07:50)
[2017-11-09] MEDS: TOCOPHERYL, DL-ALPHA 400 INTER.UNIT CAP PO SCH (07:50)
[2017-11-09] MEDS: NIASPAN 500 MG TABCR PO SCH ×2 (07:50→20:07)
[2017-11-09] MEDS: DILTIAZEM HCL 300 MG CAPCR PO SCH (07:50)
[2017-11-09] MEDS: OMEGA-3 (PURIFIED FISH OIL) 1 GM CAP PO SCH (07:50)
[2017-11-09] MEDS: FLUTICASONE/SALMETEROL 250/50 (ADVAIR) 14 PUFF/1 INHALER INH SCH ×2 (07:50→20:07)
[2017-11-09] MEDS: METFORMIN HCL 500 MG TAB PO SCH ×2 (07:51→16:37)
[2017-11-09] MEDS: INSULIN ASPART 100 UNITS/ML 3 ML PEN SC SCH ×4 (07:53→20:13)
[2017-11-09] MEDS ORDERED: VANCOMYCIN IV 1,000 MG in SODIUM CHLORIDE 0.9% 250ML 250 ML IV SCH (08:00)
--- NOTE | 2017-11-09 10:14 | Clinical Documentation Query ---
CLINICAL DOCUMENTATION QUERY Most recent progress not 11/09 states, "acute on chronic respiratory failure - seems more COPD from residual inflammation of prior pneumonia than new pneumonia ." In your clinical opinion is this patient being managed for: ( x ) COPD exacerbation ( ) Not Agree ( ) Other explanation of clinical findings (No explanation is considered a No Response) ( ) Unable to determine ( ) Need to Discuss (Phone CDS or qliq) (No discussion is considered a No Response) The medical record reflects the following clinical findings, treatment, and risk factors. Clinical Indicators: as above. Treatment: O2, nebs, IV Solumedrol Risk Factors: Age, COPD Please clarify and document your clinical opinion in the progress notes and discharge summary. Terms such as "probable", "suspected", "likely", "questionable", "possible", or "still to be ruled out" are acceptable. IF IN AGREEMENT, YOU MUST DOCUMENT ABOVE DIAGNOSTIC STATEMENT IN DAILY PROGRESS NOTES AND DISCHARGE SUMMARY. This document is not part of the patient's record. Thank You, Nico Rios, SHREYAS [phone] & via qlicCONNECT
--- NOTE | 2017-11-09 13:27 | Family Medicine Progress Note ---
Progress Note Date of Service Nov 09, 2017. Subjective Pt evaluation today including: conversation w/ patient, physical exam, chart review, lab review, review of inpatient medication list Pain: No pain reported PO Intake: Tolerating PO intake Voiding: no voiding problems Ms. Mcclendon reports she feels much better today. She states after her prior discharge, she did feel completely better, and then started becoming less active over the last week. She reports she has a mild cough, as she did with her prior admission. She denies fever or chills and states her appetite is good. Constitutional: No fever, No chills Respiratory: + cough, No wheezing Cardiovascular: No chest pain Abdomen: No pain, No nausea, No vomiting All Other Systems: Reviewed and Negative Medications Current Inpatient Medications Medications (Trade) Dose Ordered Sig/Silvestre Route Start Time Stop Time Status Last Admin Dose Admin Heparin Sodium (Porcine) (Heparin Sq 5000 Unit/0.5ml) 5,000 unit Q8 SQ 11/08/17 22:00 12/08/17 21:59 11/09/17 05:24 5,000 UNIT Acetaminophen (Tylenol Tab) 650 mg Q4H PRN PO 11/08/17 14:15 12/08/17 14:14 Magnesium Hydroxide (Milk Of Magnesia Susp) 30 ml Q12H PRN PO 11/08/17 14:15 12/08/17 14:14 Ondansetron HCl (Zofran Inj) 4 mg Q6H PRN IV 11/08/17 14:15 12/08/17 14:14 Levalbuterol (Xopenex 1.25MG/ 0.5ML Neb) 1.25 mg Q4R INH 11/08/17 20:00 12/08/17 19:59 11/09/17 11:17 1.25 MG Albuterol/ Ipratropium (Duoneb) 3 ml Q6R PRN NEB 11/08/17 14:15 12/08/17 14:14 Cefepime HCl 2000 mg/Syringe 20 ml @ 5 mls/min Q8H IV 11/08/17 18:00 11/15/17 17:59 11/09/17 11:00 5 MLS/MIN Levofloxacin 750 mg/Prmx 150 ml @ 100 mls/hr Q24H IV 11/08/17 16:00 11/15/17 15:59 11/08/17 16:45 100 MLS/HR Vancomycin HCl (Consult) 1 ea UD PRN N/A 11/08/17 14:15 12/08/17 14:14 Methylprednisolone Sodium Succinate 60 mg/Syringe 0.96 ml @ 1.5 mls/min Q8H IV 11/08/17 22:00 12/08/17 21:59 11/09/17 05:23 1.5 MLS/MIN Cholecalciferol (Vitamin D Tab) 1,000 inter.unit DAILY PO 11/09/17 09:00 12/09/17 08:59 11/09/17 07:50 1,000 INTER.UNIT Diltiazem HCl (Cardizem Cd Cap) 300 mg QAM PO 11/09/17 09:00 12/09/17 08:59 11/09/17 07:50 300 MG Fish Oil (Hornitos-3 (Purified Fish Oil) Cap) 1 gm QAM PO 11/09/17 09:00 12/09/17 08:59 11/09/17 07:50 1 GM Salmeterol Xinafoate/ Fluticasone (Advair Diskus 250/50 Inh) 1 puff BID INH 11/08/17 21:00 12/08/17 20:59 11/09/17 07:50 1 PUFF Metformin HCl (Glucophage Tab) 500 mg BIDM PO 11/09/17 07:30 12/09/17 07:29 11/09/17 07:51 500 MG Niacin (Niaspan Extended Rel Tab) 500 mg BID PO 11/08/17 21:00 12/08/17 20:59 11/09/17 07:50 500 MG bj-Umwhp-Deilbhargy Acetate (Vitamin E Cap) 800 interunit QAM PO 11/09/17 09:00 12/09/17 08:59 11/09/17 07:50 800 INTERUNIT Insulin Aspart (novoLOG ASPART) SLIDING SCALE G... ACHS SC 11/08/17 17:00 12/08/17 16:59 11/09/17 11:57 3 UNITS Vancomycin HCl 1000 mg/Sodium Chloride 270 ml @ 125 mls/hr Q16H IV 11/09/17 08:00 11/15/17 15:59 11/09/17 07:55 125 MLS/HR Glucose (Glucose 40% Gel) 15-30 GRAMS 15 GRAMS... UD PRN PO 11/08/17 16:15 12/08/17 16:14 Glucose (Glucose Chew Tab) 4-8 Tablets 4 Tabl... UD PRN PO 11/08/17 16:15 12/08/17 16:14 Dextrose (Dextrose 50% 50ML Syringe) 25-50ML 25ML FOR ... UD PRN IV 11/08/17 16:15 12/08/17 16:14 Glucagon (Glucagon Inj) 1 mg UD PRN IM 11/08/17 16:15 12/08/17 16:14 Carbohydrates (Carbohydrates For Hypoglycemia) 15-30 GRAMS 15 grams if BSG 54-69... UD PRN PO 11/08/17 16:15 12/08/17 16:14 ee-[id number]-Zoymzlvfjo Acetate (Vitamin E Cap) 200 interunit QAM PO 11/09/17 09:00 12/09/17 08:59 11/09/17 07:50 200 INTERUNIT Objective Vital Signs Date Time Temp Pulse Resp B/P (MAP) Pulse Ox O2 Delivery O2 Flow Rate FiO2 11/09/17 11:17 101 28 94 Diffusion Mask 6.0 11/09/17 11:06 36.7 101 22 144/74 (97) 95 BiPAP 11/09/17 08:00 Nasal Cannula 3.0 BiPAP 11/09/17 07:05 92 93 60 11/09/17 07:04 92 28 93 BiPAP/CPAP 60 11/09/17 06:55 36.4 92 20 149/77 (101) 95 BiPAP 11/09/17 04:08 36.9 95 17 125/65 (85) 95 BiPAP 60 11/09/17 03:23 78 96 60 11/09/17 03:22 78 26 96 BiPAP/CPAP 60 11/08/17 23:59 BiPAP 60 11/08/17 23:29 37.0 84 20 123/68 (86) 97 BiPAP 60 11/08/17 22:53 83 95 60 11/08/17 22:52 83 29 95 BiPAP/CPAP 60 11/08/17 22:06 75 96 60 11/08/17 22:00 BiPAP 60 8/21/18 19:16 36.7 87 18 130/74 (92) 94 Room Air 11/08/17 19:10 89 95 60 11/08/17 19:09 89 33 95 BiPAP/CPAP 60 11/08/17 16:00 93 BiPAP 60 11/08/17 15:46 36.9 99 20 147/70 (95) 93 BiPAP 60 11/08/17 15:37 94 31 93 BiPAP/CPAP 60 11/08/17 15:37 94 93 60 11/08/17 14:20 96 29 148/64 93 BiPAP Nebulizer 11/08/17 14:05 93 BiPAP 4.0 60 11/08/17 14:00 95 28 140/69 93 BiPAP Nebulizer Physical Exam General Appearance: WD/WN, no apparent distress Respiratory/Chest: normal breath sounds, no respiratory distress, no accessory muscle use, + decreased breath sounds (bilaterally) Cardiovascular: regular rate, rhythm, no edema, no murmur Abdomen: non tender, soft Extremities: non-tender, normal inspection, no pedal edema, no calf tenderness Laboratory Results Last 24 Hours Test 11/08/17 15:58 11/08/17 20:09 11/09/17 06:31 11/09/17 07:14 Bedside Glucose 179 mg/dl 147 mg/dl 186 mg/dl Creatinine 0.74 mg/dl Est Creatinine Clear Calc Drug Dose 55.0 ml/min Estimated GFR () 90.6 Estimated GFR (Non- 78.1 Test 11/09/17 09:22 11/09/17 11:19 Procalcitonin 0.05 ng/ml Bedside Glucose 141 mg/dl Assessment and Plan Ms. Mcclendon is a 77 year old female who was admitted on 11/08 with COPD and possible HAP Hypoxia with acute on chronic respiratory failure - no longer requiring BiPAP, saturating well on 6L via oxymask - downgrade methylprednisone 60mg TID to BID tomorrow - continue xopenex - likely secondary to the fact that the patient was not using her home inhalers on a scheduled basis, but rather prn, as well as the remaining inflammatory response in her lungs from her pneumonia - likely not a new HAP given consolidation on CXR is improved from prior visit, and no new areas of consolidation - d/c vancomycin, cefepime and levaquin - treat as COPD exacerbation with azithromycin & steroids, and longer steroid taper on d/c, as well as patient education regarding scheduled use of inhalers - bcx pending HTN: stable, continue home meds DM: Stable, continue home meds - SSI PRN - A1c 6.9 earlier this month Hyperlipidemia: continue home meds Code status: DNR/DNI per and pt agrees. Specifically that if her breathing were to worsen, she is fine with BIPAP but does not want intubate DVT prophylaxis: Heparin for DVT proph Disposition: remains on telemetry Resident Physician Supervision Note: I interviewed and examined the patient. Discussed with Dr. Gray and agree with findings and plan as documented in the note. Any exceptions or clarifications are listed here: None Documented By: Raj Guajardo feeling better breathing better O2 3L or so at home dhruv noted nad breathing unlabored fatigued but no pallor or icterus acute on chronic respiratory failure - sseems more COPD from residual inflammation of prior pneumonia than new pneumonia - CXR resolving, clinical picture much more c/w COPD than new infection - streamline abx to atypical coverage. steroids, supportive care, wean O2 as possible. Resident Tracking Resident Involvement: Resident Care Provided Care Provided: Adult Hospital Medicine
[2017-11-09] MEDS ORDERED: AZITHROMYCIN 250 MG TAB PO ONE (15:00)
[2017-11-10] VITALS (9 sets, daily range): BP systolic 130–136; BP diastolic 68–73; PULSE 79–110; TEMP 36.5–36.9; O2SAT 90–94
[2017-11-10] MEDS: LEVALBUTEROL 1.25MG/0.5ML NEB INH SCH ×3 (03:06→11:12)
[2017-11-10] MEDS: HEPARIN SOD 5000 UNIT/0.5 ML CARP SQ SCH ×2 (06:35→13:53)
[2017-11-10 07:41] LABS: CREATININE 1.02 mg/dl (0.60-1.20)
[2017-11-10] MEDS: FLUTICASONE/SALMETEROL 250/50 (ADVAIR) 14 PUFF/1 INHALER INH SCH (07:47)
[2017-11-10] MEDS: CHOLECALCIFEROL 1000 INTER.UNIT TAB PO SCH (07:48)
[2017-11-10] MEDS: METFORMIN HCL 500 MG TAB PO SCH (07:48)
[2017-11-10] MEDS: DILTIAZEM HCL 300 MG CAPCR PO SCH (07:49)
[2017-11-10] MEDS: TOCOPHERYL, DL-ALPHA 400 INTER.UNIT CAP PO SCH (07:49)
[2017-11-10] MEDS: OMEGA-3 (PURIFIED FISH OIL) 1 GM CAP PO SCH (07:49)
[2017-11-10] MEDS: TOCOPHERYL, DL-ALPHA 100 INTERUNIT CAP PO SCH (07:50)
[2017-11-10] MEDS: NIASPAN 500 MG TABCR PO SCH (07:54)
[2017-11-10] MEDS: INSULIN ASPART 100 UNITS/ML 3 ML PEN SC SCH ×2 (08:40→12:43)
[2017-11-10] MEDS ORDERED: AZIT-57 PO ×2 (09:12→13:40)
[2017-11-10] MEDS ORDERED: PRED10TA PO ×2 (09:12→13:40)
--- NOTE | 2017-11-10 09:24 | Discharge Instructions ---
Discharge Instructions Date of Service Nov 10, 2017. Admission Reason for Admission: Copd Exacerbation Discharge Discharge Diagnosis / Problem: COPD exacerbation Discharge Goals Goal(s): Decrease discomfort, Improve disease control Activity Recommendations Activity Limitations: resume your previous activity . Instructions / Follow-Up Instructions / Follow-Up You were admitted to [facility] due to difficulty breathing. This was likely due to remnant inflammation in your lungs from your previous pneumonia, as opposed to a new pneumonia. We treated you with IV steroids, nebulizers, antibiotics and inhalers. Below are recommendations we have for your treatment at home: 1) Finish the course of your antibiotics. You have 3 days left of the azithromycin. 2) Prednisone - we will be discharging you home on a taper of steroids to help with the inflammation in your lungs. Please take 4 tablets for 2 days, then 3 tablets for 2 days, then 2 tablets for 2 days and lastly 1 tablet for 2 days and then stop. 3) Inhalers - we recommend that you use the inhalers prescribed to you (Incruse and Advair) everyday as opposed to on an as needed basis. This will help prevent your breathing from worsening again. -> If you have run out of Incruse, we have also prescribed Spiriva, which is a similar type of medication for you to use. Use one or the other, but not both. 4) Oxygen - you can continue your usual home dose of 2-3L of oxygen. Check with [facility] about the possibility of a portable concentrator. If you notice fever, chills, worsening breathing, or have chest pain, please seek medical attention. Current Hospital Diet Patient's current hospital diet: Diabetes Type 2 Diet Discharge Diet Recommended Diet: Diabetes Type 2 Diet Pending Studies Studies pending at discharge: no Laboratory Results Hemoglobin A1c Test 10/20/17 12:25 Range/Units Estimated Average Glucose 151 mg/dl Hemoglobin A1c 6.9 H 4.5-5.6 % Lipid Panel Test 09/08/17 10:13 Range/Units Triglycerides Level 154 H 0-150 mg/dl Cholesterol Level 179 0-200 mg/dl HDL Cholesterol 44 mg/dl Cholesterol/HDL Ratio 4.1 LDL Cholesterol, Calculated 104 mg/dl Medical Emergencies . Who to Call and When: Medical Emergencies: If at any time you feel your situation is an emergency, please call 911 immediately. . Non-Emergent Contact Non-Emergency issues call your: Primary Care Provider . . "Provider Documentation" section prepared by Jason Gray. .
--- NOTE | 2017-11-10 09:31 | Discharge Summary ---
Discharge Summary Date of Service Nov 10, 2017. Discharge Summary Admission Date: Nov 08, 2017 at 14:12 Discharge Date: Nov 10, 2017 Discharge Disposition: Home with services Principal Diagnosis: COPD Exacerbation Problems/Secondary Diagnoses: 1) DM 2) Hypertension 3) Hyperlipidemia Immunizations: Have You Had Influenza Vaccine: Unknown History of Tetanus Vaccine?: Unknown History of Pneumococcal: Unknown History of Hepatitis B Vaccine: Unknown Procedures: CXR IMPRESSION: 1. Improved aeration of the left lung base with persistent left basilar consolidation and left pleural effusion. Pneumonia not excluded. 2. Suspected underlying emphysema. 3. Mild cardiomegaly. Medication Reconciliation New Medications: Prednisone (Prednisone) 10 Mg Tab 10 MG PO UD for 8 Days, #20 TAB 4 tablets x2 days 3 tablets x2 days 2 tablets x2 days 1 tablet x2 days Tiotropium [place] (Spiriva Respimat) 1.25 Mcg/Act Aer 1 PUFF INH DAILY for 30 Days, #1 INHALER 3 Refills Azithromycin (Azithromycin) 250 Mg Tab 250 MG PO DAILY@1500 for 3 Days, #3 TAB Continued Medications: Albuterol Sulf (Proventil 0.083% 2.5MG/3ML) 2.5 Mg/3 Ml Nebu 2.5 MG INH Q4-6H PRN for SOB/Wheezing Albuterol Sulfate (Proair Respiclick) 108 Mcg/Act Aer 2 PUFFS INH DAILY PRN for SOB/Wheezing Alprazolam (Xanax) 0.25 Mg Tab 0.25 MG PO DAILY PRN for Anxiety Cholecalciferol (Vitamin D3) 1,000 Unit Tab 1000 UNITS PO DAILY Cranberry (Vaccinium Macrocarp (Cranberry) 250 Mg Cap 250 MG PO UD Diltiazem Hcl Coated Beads (Diltiazem Hcl Er) 300 Mg Cap 300 MG PO QAM Fish Oil ([place]-3) 1 Ea Cap 1 CAP PO QAM Fluticasone Prop/Salmeterol (Advair Diskus 250/50 60 Dose) 1 Ea Aerp 1 PUFFS INH BID Metformin Hcl (Glucophage) 500 Mg Tab 500 MG PO BID Niacin Ext Rel (Niaspan Ext Rel) 500 Mg Tabcr 500 MG PO BID Vitamin E (Vitamin E) 1,000 Unit Cap 1000 UNITS PO QAM Discontinued Medications: Prednisone (Prednisone) 5 Mg Tab 5 MG PO DAILY Discharge Exam Ms. Mcclendon reports she feels well today. She denies fever, chills, chest pain, and states her breathing feels as though it is almost back at baseline. Review of Systems: Constitutional: No fever, No chills Respiratory: No shortness of breath Cardiovascular: No chest pain Abdomen: No pain, No nausea, No vomiting Physical Exam: General Appearance: WD/WN, no apparent distress Respiratory/Chest: lungs clear, no respiratory distress, no accessory muscle use, + decreased breath sounds Cardiovascular: regular rate, rhythm, no murmur, normal peripheral pulses Abdomen / GI: non tender, soft Extremities: normal inspection, no calf tenderness, no pedal edema Hospital Course Ms. Mcclendon is a 77 year old female who was admitted on 11/08 with COPD and possible HAP. She initially required BiPAP in the ED. Hypoxia with acute on chronic respiratory failure -> COPD Exacerbation - no longer requiring BiPAP, saturating well on 3L via nasal cannula, which is her regular home dose - likely secondary to the fact that the patient was not using her home inhalers on a scheduled basis, but rather prn, as well as the remaining inflammatory response in her lungs from her pneumonia - likely not a new HAP given consolidation on CXR is improved from prior visit, and no new areas of consolidation - treated with IV methylprednisone, xopenex, and IV abx - treated as COPD exacerbation with azithromycin on d/c & long taper of steroids , as well as patient education regarding scheduled use of inhalers - prescribed spiriva in case pt no longer has incruse at home - bcx negative Resident Physician Supervision Note: I interviewed and examined the patient. Discussed with Dr. Gray and agree with findings and plan as documented in the note. Any exceptions or clarifications are listed here: None Documented By: Raj Guajardo feeling better breathing better feels about baseline vitalyssia noted nad breathing unlabored no pallor or icterus acute on chronic respiratory failure - ssems more COPD from residual inflammation of prior pneumonia than new pneumonia - CXR resolving, clinical picture much more c/w COPD than new infection - stable for home - treat as above w zithromax, prednisone. reviewed using maintenance inhalers (she was not - just using inhalers PRN) Total Time Spent: Greater than 30 minutes This includes examination of the patient, discharge planning, medication reconciliation, and communication with other providers. Discharge Instructions Please refer to the electronic Patient Visit Report (Discharge Instructions) for additional information. Additional Copies To Matias Ram M.D. Resident Tracking Resident Involvement: Resident Care Provided Care Provided: [facility]
[2017-11-10] MEDS: METHYLPREDNISOLONE IV 60 MG in SYRINGE 0 ML IV SCH (10:22)
[2017-11-10] MEDS ORDERED: TIOT1AER2 INH (13:40)
[2017-11-10] MEDS ORDERED: AZITHROMYCIN 250 MG TAB PO SCH ×2 (13:50→15:00)
== END 2017-11-10 14:41 | disposition home health service (06) | DRG 189 ==
LOC: C.EDB 12:20 → C.2T 14:12 → ENRESERV 14:34 → C.4E 11-09 19:55
PROVIDERS: ADMIT Family Medicine; ATTEND Family Medicine
DX: J96.21 Acute and chronic respiratory failure with hypoxia (principal); J44.1 Chronic obstructive pulmonary disease with (acute) exacerbation; R29.6 Repeated falls; Z83.3 Family history of diabetes mellitus; Z82.41 Family history of sudden cardiac death; Z82.49 Family history of ischemic heart disease and other diseases of the circulatory system; Z87.891 Personal history of nicotine dependence; R09.02 Hypoxemia; Z99.81 Dependence on supplemental oxygen; Z79.52 Long term (current) use of systemic steroids; E78.5 Hyperlipidemia, unspecified; E11.9 Type 2 diabetes mellitus without complications; I10 Essential (primary) hypertension

== ENCOUNTER 2018-08-21 00:11 | Inpatient (IN) ==
[2018-08-21] MEDS ORDERED: ALBUT/IPRATROP 3MG/0.5MG NEB 3 ML VIAL NEB STA (00:27)
[2018-08-21] MEDS ORDERED: methylPREDNISolone 125 MG/2 ML VIAL IV STA (00:27)
[2018-08-21 01:04] LABS: Basophils # (auto) 0.01 K/uL (0-0.2); Basophils % (auto) 0.1 %; Eosinophils # (auto) 0.07 K/uL (0-0.5); Eosinophils % (auto) 0.7 %; Hemoglobin 11.1 g/dL (12.0-16.0); Immature Granulocytes # (auto) 0.03 K/uL (0.00-0.02); Immature Granulocytes % (auto) 0.3 %; Lymphocytes # (auto) 1.52 K/uL (1.2-3.4); Lymphocytes % (auto) 15.6 %; Mean Corpuscular Volume 95.1 fL (80-100); Mean Platelet Volume 9.4 fL (7.4-10.4); Monocytes # (auto) 1.02 K/uL (0.11-0.59); Monocytes % (auto) 10.5 %; Neutrophils % (auto) 72.8 %; Platelet Count 280 K/uL (130-400); RDW Coefficient of Variation 13.8 % (11.5-14.5); RDW Standard Deviation 47.7 fL (36.4-46.3); Red Blood Count 3.89 M/uL (4.2-5.4); White Blood Count 9.75 K/uL (4.8-10.8)
[2018-08-21 01:11] LABS: Prothrombin Time 10.3 Seconds (9.0-12.0)
[2018-08-21] MEDS ORDERED: LEVOFLOXACIN/D5W 750 MG/150 ML BAG IV STA (01:12)
[2018-08-21] MEDS ORDERED: SODIUM CHLORIDE 0.9% 500 ML IV ONE ×2 (01:27→02:13)
[2018-08-21 01:32] LABS: Base Excess VBG 13.1 mEq/L; HCO3 VBG 42 mmol/L; Oxygen Saturation VBG 86.6 %; PCO2 VBG 80 mmHg (38-50); PO2 VBG 54 mmHg; pH VBG 7.34 (7.36-7.41)
--- NOTE | 2018-08-21 01:44 | Emergency Department Note ---
Entered by Nuris Mccurdy acting as a scribe for History of Present Illness General Chief complaint: Congestion Stated complaint: OXYGEN LOW,CONGESTION Time Seen by Provider: 08/21/18 00:21 Source: patient and family Limitations: no limitations History of Present Illness Onset (ago): day(s) 2 Location: chest Pain Consistency: + other (worsening) Quality: + other (SOB) Associated symptoms: + cough; no fever/chills The patient is a 78 year old female who presents to the ED complaining of worsening SOB that began two days ago. She describes "feeling congested in the lungs." The patient complains of a productive cough. She denies any fevers. Her family member, at bedside, notes that she's on 4 L NC at baseline for her history of COPD. The family member states that she is on a blood thinner. He notes that her oxygen saturation was in the 70s [facility]. He reports that she is on CPAP at night. Home Medications Home Medications Medication Instructions Recorded Confirmed Type albuterol sulfate 2 puff INHALATION QID PRN 08/21/18 08/21/18 History albuterol sulfate 2.5 mg INHALATION . EVERY 4-6 08/21/18 08/21/18 History HOURS PRN alprazolam 0.25 mg PO DAILY PRN 08/21/18 08/21/18 History cholecalciferol (vitamin D3) 1,000 unit PO DAILY 08/21/18 08/21/18 History [Vitamin D3] cranberry extract 250 mg PO DAILY 08/21/18 08/21/18 History diltiazem HCl 300 mg PO QAM 08/21/18 08/21/18 History metformin 500 mg PO BID 08/21/18 08/21/18 History niacin 500 mg PO BID 08/21/18 08/21/18 History omega [id number] oil [Fish Oil] 1 cap PO DAILY 08/21/18 08/21/18 History prednisone 10 mg PO DAILY 08/21/18 08/21/18 History risedronate 35 mg PO WK 08/21/18 08/21/18 History tiotropium bromide [Spiriva 1 puff INHALATION DAILY PRN 08/21/18 08/21/18 History Respimat] umeclidinium [Incruse Ellipta] 1 inh INHALATION DAILY 08/21/18 08/21/18 History vitamin E 1,000 unit PO DAILY 08/21/18 08/21/18 History Allergies Allergy/AdvReac Type Severity Reaction Status Date / Time No Known Allergies Allergy Unverified 08/21/18 03:01 Past Med/Surg History Medical History HTN (hypertension) (Chronic) Acute and chronic respiratory failure with hypercapnia COPD exacerbation Falls frequently PNA (pneumonia) (Acute 06/20/13) Pneumonia (Acute) Respiratory distress (Acute 06/20/13) Sepsis (Acute) Social History Feels Safe at Home: Yes Smoking Status: Never smoker Review of Systems See HPI for pertinent positives & negatives. and A total of 10 systems reviewed and were otherwise negative Physical Exam Vital Signs Vital Signs - 24 hr 08/21/18 00:14 08/21/18 00:25 08/21/18 00:56 Temperature 36.5 C Temperature Source Oral Sepsis Recent Fever Within 48 Hours No Sepsis Action Taken by Nursing No Action Required Pulse Rate 123 H Pulse Rate [Right Finger] 112 H Pulse Rhythm Pulse Rhythm [Right Finger] Pulse Strength [Right Finger] Respiratory Rate 20 28 H Respiratory Effort / Characteristics Non-Labored Spontaneous Short of Breath Respiratory Depth Normal Respiratory Pattern Blood Pressure 154/73 H Blood Pressure [Right Arm] Blood Pressure Mean 100 Blood Pressure Mean [Right Arm] Blood Pressure Position [Right Arm] Pulse Oximetry 79 L 97 96 Oxygen Delivery Method Nasal Cannula Nasal Cannula Nasal Cannula Oxygen Flow Rate 3 6 6 Fraction of Inspired Oxygen 08/21/18 00:58 08/21/18 01:01 08/21/18 01:47 Temperature Temperature Source Sepsis Recent Fever Within 48 Hours Sepsis Action Taken by Nursing Pulse Rate 110 H 115 H Pulse Rate [Right Finger] 115 H 108 H Pulse Rhythm Regular Pulse Rhythm [Right Finger] Regular Regular Pulse Strength [Right Finger] Normal Normal Respiratory Rate 28 H 22 28 H Respiratory Effort / Characteristics Labored Respiratory Depth Deep Respiratory Pattern Regular Blood Pressure Blood Pressure [Right Arm] 152/87 H 154/94 H Blood Pressure Mean Blood Pressure Mean [Right Arm] 108 114 Blood Pressure Position [Right Arm] Sitting Lying Pulse Oximetry 92 93 90 Oxygen Delivery Method CPAP CPAP Oxygen Flow Rate Fraction of Inspired Oxygen 08/21/18 02:59 Temperature Temperature Source Sepsis Recent Fever Within 48 Hours Sepsis Action Taken by Nursing Pulse Rate Pulse Rate [Right Finger] 106 H Pulse Rhythm Pulse Rhythm [Right Finger] Pulse Strength [Right Finger] Respiratory Rate 20 Respiratory Effort / Characteristics Non-Labored Respiratory Depth Normal Respiratory Pattern Regular Blood Pressure Blood Pressure [Right Arm] 152/98 H Blood Pressure Mean Blood Pressure Mean [Right Arm] 116 Blood Pressure Position [Right Arm] Lying Pulse Oximetry 92 Oxygen Delivery Method BiPAP Oxygen Flow Rate Fraction of Inspired Oxygen GENERAL: Awake, alert, moderate respiratory distress HENT: Normocephalic, atraumatic. Oropharynx with dry mucous membranes and otherwise unremarkable. EYES: Normal conjunctiva. Sclera non-icteric. NECK: Supple. No nuchal rigidity. FROM. No JVD. RESPIRATORY: Diminished breath sounds throughout with intermittent wheezes. Increased work of breathing with accessory muscle use. CARDIAC: Tachycardic rate, normal rhythm. Extremities warm and well perfused. Pulses equal. ABDOMEN: Soft, non-distended. No tenderness to palpation. No rebound or guarding. No masses. RECTAL: Deferred. MUSCULOSKELETAL: Chest examination reveals no tenderness. The back is symmetrical on inspection without obvious abnormality. There is no CVA tenderness to palpation. No joint edema. LOWER EXTREMITIES: Calves are equal size bilaterally and non-tender. No edema. No discoloration. NEURO: Normal sensorium. No sensory or motor deficits noted. SKIN: No rash or jaundice noted. Course 0024: The patient was evaluated in room B10. A complete history and physical exam was performed. 0056: I spoke with Dr. Contreras, [facility] hospitalist, about the patients case. He will further evaluate the patient. Consultations Consultation #1: I spoke with Dr. Contreras, [facility] hospitalist, about the patients case. He will further evaluate the patient. Time: 00:56 Administered Medications Discontinued Medications Albuterol (Duoneb) 3 ml NEB NOW STA Stop: 08/21/18 00:28 Last Admin: 08/21/18 00:58 Dose: 3 ml Documented by: [id number] Levofloxacin/Dextrose (Levaquin/D5w) 750 mg in 150 mls @ 100 mls/hr IV NOW STA Stop: 08/21/18 02:41 Last Infusion: 08/21/18 03:58 Dose: 0 mls/hr Documented by: [id number] Admin: 08/21/18 01:46 Dose: 100 mls/hr Documented by: [id number] Sodium Chloride (Nss) 500 mls @ 999 mls/hr IV .Q31M ONE Stop: 08/21/18 01:57 Last Infusion: 08/21/18 03:58 Dose: 0 mls/hr Documented by: [id number] Admin: 08/21/18 01:46 Dose: 999 mls/hr Documented by: [id number] Sodium Chloride (Nss) 500 mls @ 999 mls/hr IV .Q31M ONE Stop: 08/21/18 02:43 Last Infusion: 08/21/18 03:58 Dose: 0 mls/hr Documented by: [id number] Admin: 08/21/18 02:27 Dose: 999 mls/hr Documented by: [id number] Methylprednisolone (Solumedrol) 125 mg IV NOW STA Stop: 08/21/18 00:28 Last Admin: 08/21/18 01:00 Dose: 125 mg Documented by: [id number] Medical Decision Making Differential Diagnosis Etiologies such as infections, reactive airway disease, COPD, pneumonia, pl eural effusion, pulmonary edema, ARDS, pneumothorax, CHF, cardiac ischemia, cardiac tamponade, dysrhythmia, anemia, pulmonary embolism, musculoskeletal, gastrointestinal process, as well as others were entertained. Medical Records Attestation: I reviewed the patient's medical records. Home Medications Current Medication List: was personally reviewed by me Laboratory Data Attestation: I reviewed the patient's lab results. Result diagrams: 08/21/18 00:52 08/21/18 00:52 Lab Results 08/21/18 08/21/18 08/21/18 Range/Units 00:52 00:52 00:52 WBC 9.75 (4.8-10.8) K/uL RBC 3.89 L (4.2-5.4) M/uL Hgb 11.1 L (12.0-16.0) g/dL Hct 37.0 (37-47) % MCV 95.1 (80-100) fL MCH 28.5 (25-34) pg MCHC 30.0 L (32-36) g/dL RDW Std Deviation 47.7 H (36.4-46.3) fL RDW Coeff of Nataly 13.8 (11.5-14.5) % Plt Count 280 (130-400) K/uL MPV 9.4 (7.4-10.4) fL Immature Gran % (Auto) 0.3 % Neut % (Auto) 72.8 % Lymph % (Auto) 15.6 % [place] % (Auto) 10.5 % Eos % (Auto) 0.7 % Baso % (Auto) 0.1 % Immature Gran # (Auto) 0.03 H (0.00-0.02) K/uL Neut # (Auto) 7.10 H (1.4-6.5) K/uL Lymph # (Auto) 1.52 (1.2-3.4) K/uL [place] # (Auto) 1.02 H (0.11-0.59) K/uL Eos # (Auto) 0.07 (0-0.5) K/uL Baso # (Auto) 0.01 (0-0.2) K/uL PT 10.3 (9.0-12.0) Seconds INR 1.0 (0.9-1.1) ABG pH (7.35-7.45) ABG pCO2 (35-46) mmHg ABG pO2 (80-95) mm/Hg ABG HCO3 (19-24) mmol/L ABG O2 Saturation (90-95) % ABG Base Excess (-9-1.8) mEq/L Marques Test (Pos) VBG pH (7.36-7.41) VBG pCO2 (38-50) mmHg VBG pO2 mmHg VBG HCO3 mmol/L VBG O2 Saturation % VBG Base Excess mEq/L Oxygen Given Sodium (136-145) mmol/L Potassium (3.5-5.1) mmol/L Chloride (98-107) mmol/L Carbon Dioxide (21-32) mmol/L Anion Gap (3-11) BUN (7-18) mg/dl Creatinine (0.6-1.2) mg/dl Est Cr Clr Drug Dosing ml/min Est GFR ( Amer) Est GFR (Non-Af Amer) BUN/Creatinine Ratio (10-20) Glucose (70-99) mg/dl POC Glucose (70-99) Lactate 1.0 (0.4-2.0) mmol/L Calcium (8.5-10.1) mg/dl Phosphorus (2.5-4.9) mg/dl Magnesium (1.8-2.4) mg/dl Total Bilirubin (0.2-1) mg/dl Direct Bilirubin (0-0.2) mg/dl AST (15-37) U/L ALT (12-78) U/L Alkaline Phosphatase (45-117) U/L Troponin I (0-0.045) ng/ml NT-Pro-B Natriuret Pep (0-1800) pg/ml Total Protein (6.4-8.2) gm/dl Albumin (3.4-5.0) gm/dl Globulin (2.5-4.0) gm/dl Albumin/Globulin Ratio (0.9-2) Lipase (73-393) U/L 08/21/18 08/21/18 08/21/18 Range/Units 00:52 01:25 02:20 WBC (4.8-10.8) K/uL RBC (4.2-5.4) M/uL Hgb (12.0-16.0) g/dL Hct (37-47) % MCV (80-100) fL MCH (25-34) pg MCHC (32-36) g/dL RDW Std Deviation (36.4-46.3) fL RDW Coeff of Nataly (11.5-14.5) % Plt Count (130-400) K/uL MPV (7.4-10.4) fL Immature Gran % (Auto) % Neut % (Auto) % Lymph % (Auto) % [place] % (Auto) % Eos % (Auto) % Baso % (Auto) % Immature Gran # (Auto) (0.00-0.02) K/uL Neut # (Auto) (1.4-6.5) K/uL Lymph # (Auto) (1.2-3.4) K/uL [place] # (Auto) (0.11-0.59) K/uL Eos # (Auto) (0-0.5) K/uL Baso # (Auto) (0-0.2) K/uL PT (9.0-12.0) Seconds INR (0.9-1.1) ABG pH (7.35-7.45) ABG pCO2 (35-46) mmHg ABG pO2 (80-95) mm/Hg ABG HCO3 (19-24) mmol/L ABG O2 Saturation (90-95) % ABG Base Excess (-9-1.8) mEq/L Marques Test (Pos) VBG pH 7.34 L (7.36-7.41) VBG pCO2 80 H (38-50) mmHg VBG pO2 54 mmHg VBG HCO3 42 mmol/L VBG O2 Saturation 86.6 % VBG Base Excess 13.1 mEq/L Oxygen Given Sodium 140 (136-145) mmol/L Potassium 4.0 (3.5-5.1) mmol/L Chloride 97 L (98-107) mmol/L Carbon Dioxide 42 H* (21-32) mmol/L Anion Gap 1.0 L (3-11) BUN 18 (7-18) mg/dl Creatinine 0.80 (0.6-1.2) mg/dl Est Cr Clr Drug Dosing 50.0 ml/min Est GFR ( Amer) 81.8 Est GFR (Non-Af Amer) 70.6 BUN/Creatinine Ratio 22.0 H (10-20) Glucose 254 H (70-99) mg/dl POC Glucose 238 H (70-99) Lactate (0.4-2.0) mmol/L Calcium 9.3 (8.5-10.1) mg/dl Phosphorus 2.6 (2.5-4.9) mg/dl Magnesium 1.8 (1.8-2.4) mg/dl Total Bilirubin 0.4 (0.2-1) mg/dl Direct Bilirubin 0.1 (0-0.2) mg/dl AST 24 (15-37) U/L ALT 30 (12-78) U/L Alkaline Phosphatase 166 H (45-117) U/L Troponin I < 0.015 (0-0.045) ng/ml NT-Pro-B Natriuret Pep 569 (0-1800) pg/ml Total Protein 7.8 (6.4-8.2) gm/dl Albumin 3.0 L (3.4-5.0) gm/dl Globulin 4.8 H (2.5-4.0) gm/dl Albumin/Globulin Ratio 0.6 L (0.9-2) Lipase 68 L (73-393) U/L 08/21/18 Range/Units 03:03 WBC (4.8-10.8) K/uL RBC (4.2-5.4) M/uL Hgb (12.0-16.0) g/dL Hct (37-47) % MCV (80-100) fL MCH (25-34) pg MCHC (32-36) g/dL RDW Std Deviation (36.4-46.3) fL RDW Coeff of Nataly (11.5-14.5) % Plt Count (130-400) K/uL MPV (7.4-10.4) fL Immature Gran % (Auto) % Neut % (Auto) % Lymph % (Auto) % [place] % (Auto) % Eos % (Auto) % Baso % (Auto) % Immature Gran # (Auto) (0.00-0.02) K/uL Neut # (Auto) (1.4-6.5) K/uL Lymph # (Auto) (1.2-3.4) K/uL [place] # (Auto) (0.11-0.59) K/uL Eos # (Auto) (0-0.5) K/uL Baso # (Auto) (0-0.2) K/uL PT (9.0-12.0) Seconds INR (0.9-1.1) ABG pH 7.30 L (7.35-7.45) ABG pCO2 84 H (35-46) mmHg ABG pO2 63 L (80-95) mm/Hg ABG HCO3 40 H (19-24) mmol/L ABG O2 Saturation 90.2 (90-95) % ABG Base Excess 10.5 H (-9-1.8) mEq/L Marques Test Pos (Pos) VBG pH (7.36-7.41) VBG pCO2 (38-50) mmHg VBG pO2 mmHg VBG HCO3 mmol/L VBG O2 Saturation % VBG Base Excess mEq/L Oxygen Given 2L Sodium (136-145) mmol/L Potassium (3.5-5.1) mmol/L Chloride (98-107) mmol/L Carbon Dioxide (21-32) mmol/L Anion Gap (3-11) BUN (7-18) mg/dl Creatinine (0.6-1.2) mg/dl Est Cr Clr Drug Dosing ml/min Est GFR ( Amer) Est GFR (Non-Af Amer) BUN/Creatinine Ratio (10-20) Glucose (70-99) mg/dl POC Glucose (70-99) Lactate (0.4-2.0) mmol/L Calcium (8.5-10.1) mg/dl Phosphorus (2.5-4.9) mg/dl Magnesium (1.8-2.4) mg/dl Total Bilirubin (0.2-1) mg/dl Direct Bilirubin (0-0.2) mg/dl AST (15-37) U/L ALT (12-78) U/L Alkaline Phosphatase (45-117) U/L Troponin I (0-0.045) ng/ml NT-Pro-B Natriuret Pep (0-1800) pg/ml Total Protein (6.4-8.2) gm/dl Albumin (3.4-5.0) gm/dl Globulin (2.5-4.0) gm/dl Albumin/Globulin Ratio (0.9-2) Lipase (73-393) U/L ECG Data Attestation: I personally reviewed and interpreted this ECG as follows: Indication: SOB/dyspnea Rate (beats per minute): 110 Rhythm: sinus tachycardia Findings: + other ( no overt ischemia) and + nonspecific-ST abn Blood Pressure Blood Pressure Findings: Elevated blood pressure Blood Pressure Disposition: further management by hospitalist KELLIE Narrative The patient is a pleasant 70-year-old woman with a past medical history of COPD, oxygen dependent on 3-4 L home O2 as well as nocturnal CPAP, hypertension, prior admission for acute on chronic respiratory failure with hypercapnia and hypoxia who presents emergency department with worsening cough, congestion and shortness of breath from her baseline over the past couple of days per hpi. On arrival patient is ill-appearing in moderate respiratory distress, afebrile, with heart rate in the 120s, hypertensive 150s/80s, hypoxic to 79% on her home oxygen. On exam the patient demonstrates increased work of breathing with diminished breath sounds throughout with intermittent wheezes. Patient's presentation is again concerning for acute on chronic respiratory failure and so she was ordered for steroids, DuoNeb, and BiPAP. EKG demonstrates sinus tachycardia without overt acute ischemia. Chest x-ray per my preliminary review demonstrates likely multifocal pneumonia with multifocal infiltrates of left lung field. Blood cultures and lactate ordered. Levaquin ordered. WBC within normal limits. Hemoglobin 11.1 within patient's prior range of values. Platelets within normal limits. VBG demonstrates hypercapnia with PCO2 of 80 and pH of 7.34. Chemistry with bicarb 40 suggestive of component of chronic hypercapnea. Lacate wnl. Troponin negative. BNP wnl. Case d/w Dr. Contreras, [facility] hospitalist, who will evaluate the patient for admission. Impression & Plan Acute on chronic respiratory failure, Multifocal pneumonia Critical Care Time I have personally spent greater than 65 minutes of critical care time in the direct management of this patient. This includes bedside care, interpretation of diagnostic studies, and testing, discussion with consultants, patient, and family members, and other required patient management activities. This 65 minutes is in excess of all separately billable procedures. Critical Care Time: Yes Total Critical Care Time: 65 Discharge Plan Visit Data *Final* Discharge Date/Time: 08/21/18 04:00 Chief Complaint: Congestion Stated Complaint: OXYGEN LOW,CONGESTION ED Provider: Pablo Whitley Discharge Problem: Acute on chronic respiratory failure, Multifocal pneumonia Patient Disposition: Admitted As Inpatient Discharge Instructions Interventions: ED Discharge Assessment Last Done: 08/21/18 04:00 Discharge Problem: Acute on chronic respiratory failure Qualifiers: Respiratory failure complication: hypoxia and hypercapnia Qualified Code(s): J96.21 - Acute and chronic respiratory failure with hypoxia The scribe's documentation has been prepared under my direction and personally reviewed by me in its entirety. I confirm that the note above accurately reflects all work, treatment, procedures, and medical decision making performed by me.
[2018-08-21 01:47] LABS: Alanine Aminotransferase 30 U/L (12-78); Albumin Globulin Ratio 0.6 (0.9-2); Alkaline Phosphatase 166 U/L (45-117); Aspartate Aminotransferase 24 U/L (15-37); Bilirubin Direct 0.1 mg/dl (0-0.2); Bilirubin,Total 0.4 mg/dl (0.2-1); Blood Urea Nitrogen 18 mg/dl (7-18); Calcium 9.3 mg/dl (8.5-10.1); Carbon Dioxide 42 mmol/L (21-32); Chloride 97 mmol/L (98-107); Est GFR (African American) 81.8; Est GFR (Non-African American) 70.6; Globulin 4.8 gm/dl (2.5-4.0); Glucose 254 mg/dl (70-99); Magnesium 1.8 mg/dl (1.8-2.4); NT Pro B Type Natriuretic Pept 569 pg/ml (0-1800); Phosphorus 2.6 mg/dl (2.5-4.9); Sodium 140 mmol/L (136-145); Total Protein 7.8 gm/dl (6.4-8.2); Troponin I < 0.015 ng/ml (0-0.045)
[2018-08-21 03:33] LABS: HCO3 ABG 40 mmol/L (19-24); Oxygen Saturation ABG 90.2 % (90-95); PCO2 ABG 84 mmHg (35-46); PO2 ABG 63 mm/Hg (80-95)
[2018-08-21 03:39] LABS: Allen Test Pos (Pos)
[2018-08-21] MEDS ORDERED: DEXTROSE 50% 50 ML SYRINGE IV PRN (04:31)
[2018-08-21] MEDS ORDERED: GLUCOSE 10 TABS/TUBE PO PRN (04:31)
[2018-08-21] MEDS ORDERED: PIPERACILL/TAZOBAC CONSULT ACTIVE PRN (04:31)
[2018-08-21] MEDS ORDERED: PIPERACILLIN/TAZOBACTAM 4.5 GM in DEXTROSE 5% 100 ML IV STA (04:31)
[2018-08-21] MEDS ORDERED: CARBOHYDRATES FOR HYPOGLYCEMIA PO PRN (04:31)
[2018-08-21] MEDS ORDERED: VANCOMYCIN CONSULT ACTIVE PRN (04:31)
[2018-08-21] MEDS ORDERED: GLUCAGON FOR INJ 1 MG VIAL SQ PRN (04:31)
[2018-08-21] MEDS ORDERED: GLUCOSE 40% GEL 15 GM TUBE PO PRN (04:31)
[2018-08-21] MEDS ORDERED: VANCOMYCIN HCL 1,000 MG in SODIUM CHLORIDE 0.9% 250 ML IV SCH ×2 (04:31→20:00)
[2018-08-21] MEDS ORDERED: PIPERACILLIN/TAZOBACTAM 3.375 GM in DEXTROSE 5% 100 ML IV ONE (04:45)
[2018-08-21] MEDS ORDERED: VANCOMYCIN HCL 1,500 MG in SODIUM CHLORIDE 0.9% 500 ML IV SCH (05:00)
--- NOTE | 2018-08-21 06:26 | History & Physical Report ---
Date of Service August 21, 2018 Assessment & Plan (1) Acute on chronic respiratory failure with hypoxia and hypercapnia: Acute on chronic respiratory failure with hypoxia and hypercapnia/multifocal pneumonia/COPD exacerbation- Admit to monitored bed. Vancomycin IV per pharmacokinetic monitoring. Zosyn 3.375 mg IV every 8 hours. Azithromycin 500 mg IV daily. Pulmicort Respules 0.5 mg inhaled twice daily Duonebs every 4 hours while awake and every 2 hours when necessary. She was given Solu-Medrol 125 mg IV in the ED, will try to avoid any further due to elevated blood sugar. Present on Admission?: Yes (2) Multifocal pneumonia: See above Present on Admission?: Yes (3) HTN (hypertension): Hold Cardizem CD 20 mg p.o. daily due to n.p.o. status on BiPAP. Placed on Lopressor 5 mg IV every 4 hours with hold parameters. Present on Admission?: Yes (4) Diabetes mellitus: Hold metformin. Placed on Accu-Cheks before meals and at bedtime with NovoLog coverage per scale. Check hemoglobin A1c Present on Admission?: Yes (5) Anxiety: Avoid antianxiety medications while on BiPAP unless necessary Present on Admission?: Yes (6) COPD exacerbation: Treat as above. Present on Admission?: Yes History of Present Illness Chief Complaint: The patient presents to the emergency department with complaint of lung congestion, shortness of breath and decreased oxygen saturation into the 70s prior to arrival, including while on her baseline nasal cannula 4 L. Primary Care Provider: Matias Ram MD The patient is a 78-year-old female with a past medical history including severe COPD 4 L oxygen dependency, chronic respiratory failure, previous history of pneumonia, sepsis, hypertension and frequent falling, who was noted to have increasing lung congestion, decreased oxygen saturation and a feeling of shortness of breath. Allergies Allergy/AdvReac Type Severity Reaction Status Date / Time No Known Allergies Allergy Unverified 08/21/18 03:01 Home Medications Home Medications Medication Instructions Recorded Confirmed Type albuterol sulfate 2 puff INHALATION QID PRN 08/21/18 08/21/18 History albuterol sulfate 2.5 mg INHALATION . EVERY 4-6 08/21/18 08/21/18 History HOURS PRN alprazolam 0.25 mg PO DAILY PRN 08/21/18 08/21/18 History cholecalciferol (vitamin D3) 1,000 unit PO DAILY 08/21/18 08/21/18 History [Vitamin D3] cranberry extract 250 mg PO DAILY 08/21/18 08/21/18 History diltiazem HCl 300 mg PO QAM 08/21/18 08/21/18 History metformin 500 mg PO BID 08/21/18 08/21/18 History niacin 500 mg PO BID 08/21/18 08/21/18 History omega [id number]-fish oil [Fish Oil] 1 cap PO DAILY 08/21/18 08/21/18 History prednisone 10 mg PO DAILY 08/21/18 08/21/18 History risedronate 35 mg PO WK 08/21/18 08/21/18 History tiotropium bromide [Spiriva 1 puff INHALATION DAILY PRN 08/21/18 08/21/18 History Respimat] umeclidinium [Incruse Ellipta] 1 inh INHALATION DAILY 08/21/18 08/21/18 History vitamin E 1,000 unit PO DAILY 08/21/18 08/21/18 History Past Med/Surg History Medical History HTN (hypertension) (Chronic) Acute and chronic respiratory failure with hypercapnia COPD exacerbation Falls frequently PNA (pneumonia) (Acute 06/20/13) Pneumonia (Acute) Respiratory distress (Acute 06/20/13) Sepsis (Acute) Social History Preferred Language: Croatian Communication Ability: Effective Manager Editorial Required: No Beliefs That Will Affect Care: None Current Living Situation: Spouse Other Information That Helps Us Care for You: No Feels Safe at Home: Yes Safety Concerns: Feels Safe At This Time Smoking Status: Never smoker Hx Alcohol Use: No Hx Substance Use: No Review of Systems Review of Systems: The patient denies chest pain, palpitations, lower extremity swelling, sore throat, fevers, chills, sweats, nausea, vomiting, diarrhea , constipation, abdominal pain, pelvic pain, blood in urine or stool, dysuria, urinary frequency or urgency, lightheadedness, dizziness, headache, loss of consciousness, rash, abnormal bruising or bleeding, imbalance, focal weakness, numbness or tingling in arms or legs, generalized arthralgias or myalgias, back or neck pain, or night sweats. The review of systems is otherwise negative other than for that already noted above, and at least 10 systems have been reviewed. Physical Exam Physical Exam: The patient is awake, alert and oriented 3, uncomfortable wearing BiPAP mask, lying in bed and in otherwise no acute distress. HEENT--PERRL, EOMI, mucous membranes and oropharynx dry. Neck--supple. No JVD. No bruits. Thyroid normal, trachea midline, no adenopathy. Heart--normal S1 and S2. No murmurs, rubs or gallops. Lungs--coarse breath sounds bilaterally. Mild respiratory distress, no accessory muscle use. Abdomen--normal bowel sounds and soft. Nontender. Nondistended. Extremities--no cyanosis or clubbing. No edema. There are good distal pulses b/l. Dermatologic--normal skin turgor, normal color, no abnormal lymph nodes, no rash. Neurologic--cranial nerves II through XII grossly intact. Rheumatologic--normal range of motion. Psychiatric--normal affect. Results & Data Vital Signs (Past 12 Hours) Vital Signs Temp Pulse Pulse Pulse Resp BP BP 08/21/18 04:16 98.2 F 108 H 24 188/76 H 08/21/18 04:00 106 H 20 146/99 H 08/21/18 02:59 106 H 20 152/98 H 08/21/18 01:47 108 H 28 H 154/94 H 08/21/18 01:01 115 H 115 H 22 152/87 H 08/21/18 00:58 110 H 28 H 08/21/18 00:56 08/21/18 00:25 112 H 28 H 08/21/18 00:14 97.7 F 123 H 20 154/73 H Pulse Ox 08/21/18 04:16 93 08/21/18 04:00 92 08/21/18 02:59 92 08/21/18 01:47 90 08/21/18 01:01 93 08/21/18 00:58 92 08/21/18 00:56 96 08/21/18 00:25 97 08/21/18 00:14 79 L Laboratory Results Laboratory Results WBC 9.75 K/uL (4.8-10.8) 08/21/18 00:52 RBC 3.89 M/uL (4.2-5.4) L 08/21/18 00:52 Hgb 11.1 g/dL (12.0-16.0) L 08/21/18 00:52 Hct 37.0 % (37-47) 08/21/18 00:52 MCV 95.1 fL (80-100) 08/21/18 00:52 MCH 28.5 pg (25-34) 08/21/18 00:52 MCHC 30.0 g/dL (32-36) L 08/21/18 00:52 RDW Std Deviation 47.7 fL (36.4-46.3) H 08/21/18 00:52 RDW Coeff of Nataly 13.8 % (11.5-14.5) 08/21/18 00:52 Plt Count 280 K/uL (130-400) 08/21/18 00:52 MPV 9.4 fL (7.4-10.4) 08/21/18 00:52 Immature Gran % (Auto) 0.3 % 08/21/18 00:52 Neut % (Auto) 72.8 % 08/21/18 00:52 Lymph % (Auto) 15.6 % 08/21/18 00:52 [place] % (Auto) 10.5 % 08/21/18 00:52 Eos % (Auto) 0.7 % 08/21/18 00:52 Baso % (Auto) 0.1 % 08/21/18 00:52 Immature Gran # (Auto) 0.03 K/uL (0.00-0.02) H 08/21/18 00:52 Neut # (Auto) 7.10 K/uL (1.4-6.5) H 08/21/18 00:52 Lymph # (Auto) 1.52 K/uL (1.2-3.4) 08/21/18 00:52 [place] # (Auto) 1.02 K/uL (0.11-0.59) H 08/21/18 00:52 Eos # (Auto) 0.07 K/uL (0-0.5) 08/21/18 00:52 Baso # (Auto) 0.01 K/uL (0-0.2) 08/21/18 00:52 PT 10.3 Seconds (9.0-12.0) 08/21/18 00:52 INR 1.0 (0.9-1.1) 08/21/18 00:52 ABG pH 7.30 (7.35-7.45) L 08/21/18 03:03 ABG pCO2 84 mmHg (35-46) H 08/21/18 03:03 ABG pO2 63 mm/Hg (80-95) L 08/21/18 03:03 ABG HCO3 40 mmol/L (19-24) H 08/21/18 03:03 ABG O2 Saturation 90.2 % (90-95) 08/21/18 03:03 ABG Base Excess 10.5 mEq/L (-9-1.8) H 08/21/18 03:03 Pos (Pos) 08/21/18 03:03 VBG pH 7.34 (7.36-7.41) L 08/21/18 01:25 VBG pCO2 80 mmHg (38-50) H 08/21/18 01:25 VBG pO2 54 mmHg 08/21/18 01:25 VBG HCO3 42 mmol/L 08/21/18 01:25 VBG O2 Saturation 86.6 % 08/21/18 01:25 VBG Base Excess 13.1 mEq/L 08/21/18 01:25 Oxygen Given 2L 08/21/18 03:03 Sodium 140 mmol/L (136-145) 08/21/18 00:52 Potassium 4.0 mmol/L (3.5-5.1) 08/21/18 00:52 Chloride 97 mmol/L (98-107) L 08/21/18 00:52 Carbon Dioxide 42 mmol/L (21-32) H* 08/21/18 00:52 1.0 (3-11) L 08/21/18 00:52 BUN 18 mg/dl (7-18) 08/21/18 00:52 0.80 mg/dl (0.6-1.2) 08/21/18 00:52 Est Cr Clr Drug Dosing 50.0 ml/min 08/21/18 00:52 Est GFR ( Amer) 81.8 08/21/18 00:52 Est GFR (Non-Af Amer) 70.6 08/21/18 00:52 22.0 (10-20) H 08/21/18 00:52 Glucose 254 mg/dl (70-99) H 08/21/18 00:52 POC Glucose 238 (70-99) H 08/21/18 02:20 1.0 mmol/L (0.4-2.0) 08/21/18 00:52 Calcium 9.3 mg/dl (8.5-10.1) 08/21/18 00:52 Phosphorus 2.6 mg/dl (2.5-4.9) 08/21/18 00:52 Magnesium 1.8 mg/dl (1.8-2.4) 08/21/18 00:52 0.4 mg/dl (0.2-1) 08/21/18 00:52 0.1 mg/dl (0-0.2) 08/21/18 00:52 AST 24 U/L (15-37) 08/21/18 00:52 ALT 30 U/L (12-78) 08/21/18 00:52 166 U/L (45-117) H 08/21/18 00:52 < 0.015 ng/ml (0-0.045) 08/21/18 00:52 NT-Pro-B Natriuret Pep 569 pg/ml (0-1800) 08/21/18 00:52 7.8 gm/dl (6.4-8.2) 08/21/18 00:52 3.0 gm/dl (3.4-5.0) L 08/21/18 00:52 4.8 gm/dl (2.5-4.0) H 08/21/18 00:52 0.6 (0.9-2) L 08/21/18 00:52 68 U/L (73-393) L 08/21/18 00:52 Code Status & VTE Plan Code Status Full code VTE Prophylaxis Plan VTE Prophylaxis will be ordered: Yes
[2018-08-21 06:39] LABS: Estimated Average Glucose 180 mg/dl; Hemoglobin A1C 7.9 % (4.5-5.6)
--- NOTE | 2018-08-21 06:51 | XRay Report ---
XR chest 1V portable CLINICAL HISTORY: Chest pain. Shortness of breath. COMPARISON STUDY: Chest radiograph November 23, 2017. FINDINGS: A small left pleural effusion is noted. There is no right pleural effusion or pneumothorax. Several calcified pleural plaques are noted. There is emphysema. Multifocal airspace opacities withi n the left lung are noted. Cardiomediastinal silhouette is stable. IMPRESSION: 1. Multifocal left lung airspace opacities which favor pneumonia. Radiographic follow-up is recommend ed to ensure resolution. 2. Small left pleural effusion. 3. Emphysema. Electronically signed by: Cole Buckner M.D. 08/21/2018 6:50 AM
[2018-08-21] MEDS: ALBUT/IPRATROP 3MG/0.5MG NEB 3 ML VIAL NEB SCH ×4 (07:16→19:51)
[2018-08-21] MEDS: METOPROLOL TARTRATE 1 MG/ML VIAL IV SCH ×4 (07:24→20:56)
[2018-08-21] MEDS: ENOXAPARIN INJ 30 MG/0.3 ML SYR SQ SCH (07:26)
[2018-08-21] MEDS: INSULIN ASPART 100 UNITS/ML 3 ML PEN SC SCH ×5 (07:42→20:56)
[2018-08-21] MEDS: AZITHROMYCIN 500 MG in DEXTROSE 5% 250 ML IV SCH (07:43)
[2018-08-21 08:57] LABS: BUN Creatinine Ratio 20.6 (10-20); Calcium 9.2 mg/dl (8.5-10.1); Creatinine Clr Calc Pharmacy 60.2 ml/min; Est GFR (African American) 89.9; Est GFR (Non-African American) 77.6; Potassium 4.4 mmol/L (3.5-5.1)
[2018-08-21] MEDS ORDERED: methylPREDNISolone 20 MG in SYRINGE 0 ML IV SCH (09:00)
[2018-08-21] MEDS ORDERED: PHARMACY GLYCEMIC MGMT CONSULT STA (09:59)
[2018-08-21] MEDS ORDERED: PIPERACILLIN/TAZOBACTAM 3.375 GM in DEXTROSE 5% 100 ML IV SCH (10:00)
[2018-08-21] MEDS ORDERED: PHARMACY GLYCEMIC MGMT CONSULT PRN (10:41)
[2018-08-21] MEDS ORDERED: INSULIN HUMAN NPH SC ONE (11:00)
[2018-08-21] MEDS: BUDESONIDE 0.5 MG/2 ML VIAL (PULMICORT) NEB SCH ×2 (11:20→19:51)
[2018-08-21] MEDS: dilTIAZem HCL 300 MG CAPCR PO SCH (11:27)
[2018-08-21] MEDS: predniSONE 10 MG TABLET PO SCH (11:28)
--- NOTE | 2018-08-21 13:26 | Pharmacy Report ---
Glycemic Control Consultation - Date of Service August 21, 2018 - Scope Scope: Glycemic Pharmacist consulted by Dr Jung on 08/21 for glycemic control and to write orders per [facility] inpatient glycemic control protocol - Objective Weight: 70.2 kg Accuchecks BSG (last 24hrs): 08/21/18 08/21/18 08/21/18 00:52 02:20 05:17 Glucose 254 H 265 H POC Glucose 238 H 08/21/18 08/21/18 08/21/18 07:31 07:33 09:43 Glucose POC Glucose 310 H* 307 H* 343 H* 08/21/18 11:31 Glucose POC Glucose 283 H Laboratory Data (last 24hrs): 08/21/18 08/21/18 00:52 05:17 Potassium 4.0 4.4 Carbon Dioxide 42 H* 40 H Anion Gap 1.0 L 3.0 Creatinine 0.80 0.74 Est Cr Clr Drug Dosing 50.0 60.2 HbA1c: 7.9 % (4.5-5.6) H 08/21/18 05:17 - Recent Pertinent Medications Outpatient Anti-diabetic Regimen: * Metformin 500 mg BID * A1c = 7.9 % 08/21/18 The patient is currently receiving: * Basal insulin: None * Correctional Insulin: Novolog Correction per scale ACHS Goal Range: Low 100 mg/dL - High 150 mg/dL Correction Factor: 25 mg/dL/unit * Prandial insulin: Per carb ratio of 1 unit per 10 grams CHO consumed * Oral Agents: None at this time Risk Factors for Insulin Resistance: * Steroids: Solumedrol 125 mg overnight, then Solumedrol 20 mg IV qAM -> switched to prednisone 10 mg qAM w/ first dose ~ lunch today (confirmed that physician wanted this in addition to Solumedrol received) * Infection: pneumonia * Diet: type 2 diabetes - Assessment & Plan Assessment & Plan: ASSESSMENT: * 78 y/o female admitted overnight for pneumonia. She has a history of type 2 diabetes, managed with just metformin at home. * BSGs have increased significantly since admission d/t steroids given and no basal insulin on board. Will plan to utilize NPH for basal insulin since this best reflects the kinetics of once daily steroids. Will give 0.4 units/kg since the Solumedrol 20 mg + prednisone 10 mg is equivalent to ~35 mg of prednisone, and will need to account for the 125 mg dose given overnight (which should wear off sooner than the other doses). * Novolog carb ratio will be tightened to patient's weight/stress level of 3 since BSGs are high to begin with. This can be loosened tomorrow once BSGs are improved. PLAN FOR INPATIENT GLYCEMIC CONTROL: * Holding outpatient oral diabetes medications * Basal insulin * NPH 30 units (~0.4 units/kg) x 1 now * NPH 8 units (~0.1 units/kg) qAM starting 08/22 to coincide w/ prednisone 10 mg * Bolus insulin * NovoLog per scale ACHS or Q6hrs while NPO + 0200 check to provide additional overnight coverage if needed * Goal Range: Low 100 mg/dL - High 150 mg/dL * Correction Factor: 25 mg/dL/unit * Nutritional / Prandial insulin per carb ratio of 1 unit per 8 grams CHO consumed Discharge Recommendations: * A1c of 7.9% is at/near goal for patient's age/comorbidities. Continue metf ormin on discharge Thank you.
--- NOTE | 2018-08-21 16:26 | Family Medicine Progress Note ---
Date of Service August 21, 2018 Assessment & Plan (1) Acute on chronic respiratory failure with hypoxia and hypercapnia: 78 y/o F with PMH HTN and COPD presents with complaints of SOB and decreased oxygen saturation into the 70s [employer] even while on her baseline nasal cannula 4 L found to have PNA on imaging. Acute on chronic respiratory failure with hypoxia and hypercapnia/ PNA/ COPD Exacerbation -D/C Vancomycin and Zosyn today. Cont azithromycin 500 mg IV daily, added rocephin 1000 mg IV daily -blood cx pending -Pulmicort Respules 0.5 mg inhaled twice daily -Duonebs every 4 hours while awake and every 2 hours when necessary. -D/C IV Solu-Medrol. Transitioned to PO Prednisone 10 mg, which is her home regimen -respiratory status improved. Back on 4L NC baseline -speech consulted 2/2 concerns for aspiration. Recs cont normal diet, no other concerns HTN -restarted home Cardizem 300 mg PO daily and D/C Lopressor 5 mg IV q4h Diabetes Mellitus - Holding home metformin -BSG AC/HS with SSI -A1C 7.9 on admit -appreciate glycemic consult Anxiety -Alprazolam .25 mg PO daily prn FEN/GI: Diabetic Diet DVT Prophylaxis: Lovenox Full Code Dispo: Likely d/c tomorrow if stable Supervising Physician Co-Signing Physician Notes Resident Physician Supervision Note: I independently interviewed and examined the patient and verified the mondragon history and physical, reviewed labs and image studies, discussed the case with the resident Dr. Robertson and agree with the findings and care plan. Subjective 78 y/o F found in bed this AM in NAD. No overnight event reports. Tele overnight shows sinus tachy. Pt states has no breathing difficulties, feels back at baseline now on 4L NC. Denies SOB, CP, lightheadedness, dizzyness. Tolerating PO intake. No issues voiding. No other acute concerns or complaints. Review of Systems Review of Systems: All systems reviewed & are unremarkable except as noted in HPI & below Physical Exam Constitutional: WD/WN, vitals as above Eyes: PERRL, conjunctivae normal, anicteric sclerae ENMT: external ear and nose normal, oropharynx normal Respiratory: coarse breath sounds b/l Cardiovascular: RRR, no murmur, no edema Gastrointestinal (Abdomen): normal bowel sounds, soft, nontender, no hepatosplenomegaly Skin: no rashes, warm and dry Psychiatric: A+Ox3, euthymic affect Results & Data Vital Signs (Past 12 Hours) Vital Signs Temp Pulse Pulse Pulse Resp BP BP 08/21/18 16:17 84 08/21/18 16:05 36.9 C 99 H 18 133/65 08/21/18 14:56 79 08/21/18 11:43 105 H 148/86 H 08/21/18 11:32 36.4 C L 105 H 20 147/83 H 08/21/18 11:16 106 H 18 08/21/18 08:00 100 H 08/21/18 07:24 110 H 156/78 H 08/21/18 07:16 104 H 18 08/21/18 07:00 36.6 C 101 H 19 152/74 H 08/21/18 06:30 104 H 155/71 H Pulse Ox 08/21/18 16:17 08/21/18 16:05 91 08/21/18 14:56 98 08/21/18 11:43 08/21/18 11:32 95 08/21/18 11:16 95 08/21/18 08:00 08/21/18 07:24 08/21/18 07:16 91 08/21/18 07:00 93 08/21/18 06:30 Laboratory Results Laboratory Results - last 24 hr 08/21/18 08/21/18 08/21/18 00:52 00:52 00:52 WBC 9.75 RBC 3.89 L Hgb 11.1 L Hct 37.0 MCV 95.1 MCH 28.5 MCHC 30.0 L RDW Std Deviation 47.7 H RDW Coeff of Nataly 13.8 Plt Count 280 MPV 9.4 Immature Gran % (Auto) 0.3 Neut % (Auto) 72.8 Lymph % (Auto) 15.6 [place] % (Auto) 10.5 Eos % (Auto) 0.7 Baso % (Auto) 0.1 Immature Gran # (Auto) 0.03 H Neut # (Auto) 7.10 H Lymph # (Auto) 1.52 [place] # (Auto) 1.02 H Eos # (Auto) 0.07 Baso # (Auto) 0.01 PT 10.3 INR 1.0 ABG pH ABG pCO2 ABG pO2 ABG HCO3 ABG O2 Saturation ABG Base Excess [place] Test VBG pH VBG pCO2 VBG pO2 VBG HCO3 VBG O2 Saturation VBG Base Excess Oxygen Given Sodium Potassium Chloride Carbon Dioxide Anion Gap BUN Creatinine Est Cr Clr Drug Dosing Est GFR ( Amer) Est GFR (Non-Af Amer) BUN/Creatinine Ratio Glucose POC Glucose Estimat Average Glucose Hemoglobin A1c Lactate 1.0 Calcium Phosphorus Magnesium Total Bilirubin Direct Bilirubin AST ALT Alkaline Phosphatase Troponin I NT-Pro-B Natriuret Pep Total Protein Albumin Globulin Albumin/Globulin Ratio Lipase Nasal Screen MRSA (PCR) 08/21/18 08/21/18 08/21/18 00:52 01:25 02:20 WBC RBC Hgb Hct MCV MCH MCHC RDW Std Deviation RDW Coeff of Nataly Plt Count MPV Immature Gran % (Auto) Neut % (Auto) Lymph % (Auto) [place] % (Auto) Eos % (Auto) Baso % (Auto) Immature Gran # (Auto) Neut # (Auto) Lymph # (Auto) [place] # (Auto) Eos # (Auto) Baso # (Auto) PT INR ABG pH ABG pCO2 ABG pO2 ABG HCO3 ABG O2 Saturation ABG Base Excess [place] Test VBG pH 7.34 L VBG pCO2 80 H VBG pO2 54 VBG HCO3 42 VBG O2 Saturation 86.6 VBG Base Excess 13.1 Oxygen Given Sodium 140 Potassium 4.0 Chloride 97 L Carbon Dioxide 42 H* Anion Gap 1.0 L BUN 18 Creatinine 0.80 Est Cr Clr Drug Dosing 50.0 Est GFR ( Amer) 81.8 Est GFR (Non-Af Amer) 70.6 BUN/Creatinine Ratio 22.0 H Glucose 254 H POC Glucose 238 H Estimat Average Glucose Hemoglobin A1c Lactate Calcium 9.3 Phosphorus 2.6 Magnesium 1.8 Total Bilirubin 0.4 Direct Bilirubin 0.1 AST 24 ALT 30 Alkaline Phosphatase 166 H Troponin I < 0.015 NT-Pro-B Natriuret Pep 569 Total Protein 7.8 Albumin 3.0 L Globulin 4.8 H Albumin/Globulin Ratio 0.6 L Lipase 68 L Nasal Screen MRSA (PCR) 08/21/18 08/21/18 08/21/18 03:03 05:17 05:17 WBC RBC Hgb Hct MCV MCH MCHC RDW Std Deviation RDW Coeff of Nataly Plt Count MPV Immature Gran % (Auto) Neut % (Auto) Lymph % (Auto) [place] % (Auto) Eos % (Auto) Baso % (Auto) Immature Gran # (Auto) Neut # (Auto) Lymph # (Auto) [place] # (Auto) Eos # (Auto) Baso # (Auto) PT INR ABG pH 7.30 L ABG pCO2 84 H ABG pO2 63 L ABG HCO3 40 H ABG O2 Saturation 90.2 ABG Base Excess 10.5 H [place] Test Pos VBG pH VBG pCO2 VBG pO2 VBG HCO3 VBG O2 Saturation VBG Base Excess Oxygen Given 2L Sodium 140 Potassium 4.4 Chloride 98 Carbon Dioxide 40 H Anion Gap 3.0 BUN 15 Creatinine 0.74 Est Cr Clr Drug Dosing 60.2 Est GFR ( Amer) 89.9 Est GFR (Non-Af Amer) 77.6 BUN/Creatinine Ratio 20.6 H Glucose 265 H POC Glucose Estimat Average Glucose 180 Hemoglobin A1c 7.9 H Lactate Calcium 9.2 Phosphorus Magnesium Total Bilirubin Direct Bilirubin AST ALT Alkaline Phosphatase Troponin I NT-Pro-B Natriuret Pep Total Protein Albumin Globulin Albumin/Globulin Ratio Lipase Nasal Screen MRSA (PCR) 08/21/18 08/21/18 08/21/18 07:31 07:33 09:43 WBC RBC Hgb Hct MCV MCH MCHC RDW Std Deviation RDW Coeff of Nataly Plt Count MPV Immature Gran % (Auto) Neut % (Auto) Lymph % (Auto) [place] % (Auto) Eos % (Auto) Baso % (Auto) Immature Gran # (Auto) Neut # (Auto) Lymph # (Auto) [place] # (Auto) Eos # (Auto) Baso # (Auto) PT INR ABG pH ABG pCO2 ABG pO2 ABG HCO3 ABG O2 Saturation ABG Base Excess [place] Test VBG pH VBG pCO2 VBG pO2 VBG HCO3 VBG O2 Saturation VBG Base Excess Oxygen Given Sodium Potassium Chloride Carbon Dioxide Anion Gap BUN Creatinine Est Cr Clr Drug Dosing Est GFR ( Amer) Est GFR (Non-Af Amer) BUN/Creatinine Ratio Glucose POC Glucose 310 H* 307 H* 343 H* Estimat Average Glucose Hemoglobin A1c Lactate Calcium Phosphorus Magnesium Total Bilirubin Direct Bilirubin AST ALT Alkaline Phosphatase Troponin I NT-Pro-B Natriuret Pep Total Protein Albumin Globulin Albumin/Globulin Ratio Lipase Nasal Screen MRSA (PCR) 08/21/18 08/21/18 10:20 11:31 WBC RBC Hgb Hct MCV MCH MCHC RDW Std Deviation RDW Coeff of Nataly Plt Count MPV Immature Gran % (Auto) Neut % (Auto) Lymph % (Auto) [place] % (Auto) Eos % (Auto) Baso % (Auto) Immature Gran # (Auto) Neut # (Auto) Lymph # (Auto) [place] # (Auto) Eos # (Auto) Baso # (Auto) PT INR ABG pH ABG pCO2 ABG pO2 ABG HCO3 ABG O2 Saturation ABG Base Excess [place] Test VBG pH VBG pCO2 VBG pO2 VBG HCO3 VBG O2 Saturation VBG Base Excess Oxygen Given Sodium Potassium Chloride Carbon Dioxide Anion Gap BUN Creatinine Est Cr Clr Drug Dosing Est GFR ( Amer) Est GFR (Non-Af Amer) BUN/Creatinine Ratio Glucose POC Glucose 283 H Estimat Average Glucose Hemoglobin A1c Lactate Calcium Phosphorus Magnesium Total Bilirubin Direct Bilirubin AST ALT Alkaline Phosphatase Troponin I NT-Pro-B Natriuret Pep Total Protein Albumin Globulin Albumin/Globulin Ratio Lipase Nasal Screen MRSA (PCR) Negative Medications Administered Current Inpatient Medications Albuterol (Duoneb) 3 ml NEB QIDR [facility] Stop: 09/20/18 07:59 Last Admin: 08/21/18 14:56 Dose: 3 ml Documented by: Budesonide (Pulmicort Respules) 0.5 mg NEB BIDR [facility] Stop: 09/20/18 07:59 Last Admin: 08/21/18 11:20 Dose: Not Given Documented by: Dextrose (Dextrose 50%) 25 - 50 ml IV UD PRN; Protocol PRN Reason: Hypoglycemia Protocol Stop: 09/20/18 04:30 Diltiazem HCl (Cardizem Cd) 300 mg PO QAM KEV Stop: 09/20/18 10:14 Last Admin: 08/21/18 11:27 Dose: 300 mg Documented by: Enoxaparin Sodium (Lovenox) 30 mg SQ Q24H KEV Stop: 09/20/18 08:59 Last Admin: 08/21/18 07:26 Dose: 30 mg Documented by: Glucagon (Glucagen) 1 mg SQ UD PRN; Protocol PRN Reason: Hypoglycemia Protocol Stop: 09/20/18 04:30 Glucose (Glucose 40%) 15 - 30 gm PO UD PRN; Protocol PRN Reason: Hypoglycemia Protocol Stop: 09/20/18 04:30 Glucose (Dex4 Glucose) 4 - 8 tabs PO UD PRN; Protocol PRN Reason: Hypoglycemia Protocol Stop: 09/20/18 04:30 Azithromycin 500 mg/ Dextrose 255 mls @ 125 mls/hr IV DAILY [facility] Stop: 08/28/18 08:59 Last Infusion: 08/21/18 09:45 Dose: Infused Documented by: Ceftriaxone Sodium 1,000 mg/ (Dextrose) 60 mls @ 120 mls/hr IV Q24H [facility]; Protocol Stop: 08/28/18 17:59 Insulin Aspart (Novolog Flexpen) 0 units SC ACHS [facility] Stop: 09/20/18 07:29 Last Admin: 08/21/18 12:04 Dose: 12 units Documented by: Insulin Aspart (Novolog Flexpen) 0 units SC 0200 ONE Stop: 08/22/18 02:01 Insulin Human NPH (Novolin N Nph) 8 units SC QDB [facility]; Protocol Stop: 09/21/18 07:29 Metoprolol Tartrate (Lopressor) 5 mg IV Q4 [facility] Stop: 09/20/18 07:59 Last Admin: 08/21/18 11:43 Dose: 5 mg Documented by: Miscellaneous (Carbohydrates For Hypoglycemia) 15 - 30 gm PO UD PRN PRN Reason: Hypoglycemia Treatment Stop: 09/20/18 04:30 Miscellaneous Information (Consult Glycemic Management Pharmacy) 1 ea N/A UD PRN PRN Reason: Consult Stop: 09/20/18 10:40 Prednisone (Prednisone) 10 mg PO QAM [facility] Stop: 09/20/18 10:14 Last Admin: 08/21/18 11:28 Dose: 10 mg Documented by: Resident Activity Tracking Resident Involvement: Resident Care Provided Care Provided: Adult Hospital Medicine
[2018-08-21] MEDS ORDERED: ALPRAZolam 0.25 MG TABLET PO PRN (16:40)
[2018-08-21] MEDS ORDERED: cefTRIAXone SODIUM 1,000 MG in DEXTROSE 5% 50 ML IV SCH (18:00)
[2018-08-22] MEDS ORDERED: INSULIN ASPART 100 UNITS/ML 3 ML PEN SC ONE (02:00)
[2018-08-22] MEDS: METOPROLOL TARTRATE 1 MG/ML VIAL IV SCH ×3 (03:51→09:16)
[2018-08-22 06:40] LABS: Creatinine Clr Calc Pharmacy 55.9 ml/min; Est GFR (African American) 81.8; Est GFR (Non-African American) 70.6
[2018-08-22] MEDS: ALBUT/IPRATROP 3MG/0.5MG NEB 3 ML VIAL NEB SCH ×2 (07:14→11:14)
[2018-08-22] MEDS: BUDESONIDE 0.5 MG/2 ML VIAL (PULMICORT) NEB SCH (07:27)
[2018-08-22] MEDS ORDERED: INSULIN HUMAN NPH SC SCH (07:30)
[2018-08-22] MEDS: predniSONE 10 MG TABLET PO SCH (08:46)
[2018-08-22] MEDS: ENOXAPARIN INJ 30 MG/0.3 ML SYR SQ SCH (08:46)
[2018-08-22] MEDS: dilTIAZem HCL 300 MG CAPCR PO SCH (08:46)
[2018-08-22] MEDS: INSULIN ASPART 100 UNITS/ML 3 ML PEN SC SCH (08:53)
[2018-08-22] MEDS: AZITHROMYCIN 500 MG in DEXTROSE 5% 250 ML IV SCH (08:53)
--- NOTE | 2018-08-22 11:14 | Discharge Summary ---
Date of Service August 22, 2018 Admission HPI Per Admitting Provider The patient is a 78-year-old female with a past medical history including severe COPD 4 L oxygen dependency, chronic respiratory failure, previous history of pneumonia, sepsis, hypertension and frequent falling, who was noted to have increasing lung congestion, decreased oxygen saturation and a feeling of shortness of breath. Principal Diagnosis PNA Discharge Exam Constitutional WD/WN, vitals as above Eyes PERRL, conjunctivae normal, anicteric sclerae ENMT external ear and nose normal, oropharynx normal Respiratory course breath sounds Cardiovascular RRR, no murmur, no edema Gastrointestinal (Abdomen) normal bowel sounds, soft, nontender, no hepatosplenomegaly Skin no rashes, warm and dry Psychiatric A+Ox3, euthymic affect Discharge Data Allergies Allergy/AdvReac Type Severity Reaction Status Date / Time No Known Allergies Allergy Unverified 08/21/18 03:01 Consultations 08/21/18 02:14 ED Decision to Admit Stat 08/21/18 04:31 Consult Case Management - Discharge Planning Routine Hospital Course (1) Acute on chronic respiratory failure with hypoxia and hypercapnia: 78 y/o F with PMH HTN and COPD presents with complaints of SOB and decreased oxygen saturation into the 70s [employer] MA[employer]GER even while on her baseline nasal cannula 4 L found to have PNA on imaging. The following is the medical management during stay here: Acute on chronic respiratory failure with hypoxia and hypercapnia Community Acquired Pneumonia with COPD Exacerbation -CXR in ER showed multifocal left lung airspace opacities which favor pneumonia. Pt was initially started on Vancomycin and Zosyn, which were dc'd after first day. We continued azithromycin 500 mg IV daily, and added rocephin 1000 mg IV daily. Pt will be d/c on Azithromycin x5days. Blood cx showed NGTD x1day at time of d/c. Pt was given Pulmicort Respules 0.5 mg inhaled twice daily along with Duonebs every 4 hours while awake and every 2 hours when necessary. Pt initially started on IV Solu-Medrol and was transitioned to PO Prednisone 10 mg, which is her home regimen. At time of d/c, pt's respiratory status improved and is back on 4L NC baseline. She did initially require BiPAP while in ER. Speech was consulted 2/2 concerns for aspiration and recommended continuing a normal diet, and had no other concerns. HTN -Pt was continued on home Cardizem 300 mg PO daily and D/C Lopressor 5 mg IV q4h Diabetes Mellitus -Pt's A1C 7.9 on admit. She was on a SSI with good control of BSGs, and will resume home regimen on d/c. Anxiety -We continued pt's home Alprazolam .25 mg PO daily prn DVT Prophylaxis: Lovenox. At time of d/c, pt had no other acute concerns or complaints. Total Time Total Time Spent Total Time Spent (In Minutes): 35 min Discharge Plan Discharge Items Patient Disposition: Home - Self-Care Reason For Visit: ACUTE ON CHRONIC RESPIRATORY FAILURE WITH HYPOXIA Discharge Diagnosis: ACUTE ON CHRONIC RESPIRATORY FAILURE WITH HYPOXIA, Pneumonia, COPD Exacerbation Discharge Goals: Improve disease control and Therapeutic intervention Activity: Per 'Additional Instructions' section Non-emergency contact: Primary Care Provider Call non-emergency contact if: you have any medication questions, your symptoms worsen and your temperature is above 101.5 Follow-up/Referrals: Matias Ram III, MD [Primary Care Provider] - (Notified Dr. Ram's office that you will need a follow-up appointment within the next week. A task was sent to the nurse. You will be receiving a call from the nurse with your appointment date and time. Please call your PCP's office with any questions or concerns. [phone].) Diet: Carb Consistent or DM2 Addtl Provider Instructions: You were admitted for concerns for shortness of breath that was not improved even with your home oxygen. Imaging in the ER showed that you had a pneumonia, and you were treated appropriately. Please follow the below instructions on discharge: -Please follow up with your PCP within one week of discharge -You will continue antibiotic azithromycin for 5 additional days. -Continue your other home meds otherwise as before -If you develop similar symptoms that brought you into the ER or if these symptoms persist, please come back in Prescriptions: New azithromycin 250 mg tablet See Rx Instructions .ROUTE .COMPLEX Qty: 6 RF: 0 Continued metformin 500 mg tablet 500 mg PO BID RF: 0 prednisone 5 mg tablet 10 mg PO DAILY RF: 0 diltiazem HCl 300 mg capsule,extended release 24hr 300 mg PO QAM RF: 0 Incruse Ellipta 62.5 mcg/actuation blister with device 1 inh inhalation DAILY RF: 0 niacin 500 mg tablet extended release 24 hr 500 mg PO BID RF: 0 risedronate 35 mg tablet 35 mg PO WK RF: 0 vitamin E 1,000 unit Capsule 1,000 unit PO DAILY RF: 0 albuterol sulfate 2.5 mg /3 mL (0.083 %) Solution For Nebulization 2.5 mg INHALATION . EVERY 4-6 HOURS PRN (Reason: Shortness Of Breath Or Wheezing) RF: 0 cranberry extract 250 mg Capsule 250 mg PO DAILY RF: 0 alprazolam 0.25 mg Tablet 0.25 mg PO DAILY PRN (Reason: Anxiety) RF: 0 albuterol sulfate 90 mcg/actuation Hfa Aerosol Inhaler 2 puff INHALATION QID PRN (Reason: Shortness Of Breath Or Wheezing) RF: 0 cholecalciferol (vitamin D3) [Vitamin D3] 1,000 unit Tablet 1,000 unit PO DAILY RF: 0 omega 1-qbt-vpe-fish oil [Fish Oil] 1,000 mg (120 mg-180 mg) Capsule 1 cap PO DAILY RF: 0 Spiriva Respimat 1.25 mcg/actuation mist 1 puff inhalation DAILY PRN (Reason: Shortness Of Breath Or Wheezing) RF: 0 Stand-Alone Forms: [facility] Discharge Orders: Discharge Order (Routine); Ordered 08/22/18 Ordered By: Jamison Robertson Admission Data Admit Date/Time: 08/21/18 03:23 Attending Provider: Tory Wall Admit Provider: Campos Contreras Primary Care Provider: Matias Ram III Other Providers: Campos Contreras Service: Telemetry Other Interventions: Discharge Summary Assessment (RN) Last Done: 08/22/18 12:39 DC Date/Time DO NOT enter until pt leaves facility: 08/22/18 12:30 Supervising Physician Co-Signing Physician Notes Resident Physician Supervision Note: I independently interviewed and examined the patient and verified the mondragon history and physical, reviewed labs and image studies, discussed the case with the resident Dr. Robertson and agree with the findings and care plan. Time spent in discharge 35 min Resident Activity Tracking Resident Involvement: Resident Care Provided Care Provided: Adult Hospital Medicine
== END 2018-08-22 12:30 | disposition home or self-care (01) | DRG 193 ==
LOC: ED 00:11 → 2S 03:23 → SUATTDRO 03:23 → 2S 04:00

== ENCOUNTER 2018-12-27 12:12 | Inpatient (IN) ==
[2018-12-27] MEDS ORDERED: ALBUT/IPRATROP 3MG/0.5MG NEB 3 ML VIAL NEB ONE (12:34)
[2018-12-27] MEDS ORDERED: SODIUM CHLORIDE 0.9% 1000ML 1,000 ML IV ONE (12:35)
[2018-12-27 12:46] LABS: Basophils # (auto) 0.02 K/uL (0-0.2); Basophils % (auto) 0.2 %; Eosinophils # (auto) 0.07 K/uL (0-0.5); Eosinophils % (auto) 0.6 %; Hematocrit (blood only) 37.1 % (37-47); Hemoglobin 10.9 g/dL (12.0-16.0); Immature Granulocytes # (auto) 0.08 K/uL (0.00-0.02); Immature Granulocytes % (auto) 0.7 %; Mean Corpuscular Hemoglobin 29.1 pg (25-34); Mean Corpuscular Hgb Conc 29.4 g/dL (32-36); Mean Corpuscular Volume 99.2 fL (80-100); Mean Platelet Volume 9.5 fL (7.4-10.4); Monocytes # (auto) 0.92 K/uL (0.11-0.59); Monocytes % (auto) 7.9 %; Neutrophils # (auto) 9.83 K/uL (1.4-6.5); Neutrophils % (auto) 84.6 %; Platelet Count 301 K/uL (130-400); RDW Coefficient of Variation 13.5 % (11.5-14.5); RDW Standard Deviation 48.7 fL (36.4-46.3); Red Blood Count 3.74 M/uL (4.2-5.4); White Blood Count 11.62 K/uL (4.8-10.8)
--- NOTE | 2018-12-27 12:51 | XRay Report ---
XR chest 1V portable CLINICAL HISTORY: weakness COMPARISON STUDY: 11/08/2018 FINDINGS: There is persistent extensive left lung volume loss with areas of left lung parenchymal con solidation similar to the prior study. There is radiographic evidence of emphysema. There is a small right pleural effusion. There is elevation of the right lung interstitium suggesting mild pulmonary v ascular congestion/fluid overload.[ IMPRESSION: 1. Extensive chronic changes within the left hemithorax with left lung volume loss and parenchymal co nsolidation. 2. Interval development of mild pulmonary vascular congestion/fluid overload with small right pleural effusion Electronically signed by: Roosevelt Mejia M.D. 12/27/2018 12:50 PM
[2018-12-27] MEDS ORDERED: PIPERACILL/TAZOBAC CONSULT ACTIVE PRN (12:58)
[2018-12-27] MEDS ORDERED: PIPERACILLIN/TAZOBACTAM 4.5 GM/120 ML BAG IV ONE (12:58)
[2018-12-27 12:59] LABS: Albumin Level 2.9 gm/dl (3.4-5.0); Calcium 9.3 mg/dl (8.5-10.1); Creatinine Clr Calc Pharmacy 60.1 ml/min; Est GFR (African American) 88.5; Est GFR (Non-African American) 76.3; Potassium 3.6 mmol/L (3.5-5.1)
[2018-12-27 13:12] LABS: Albumin Globulin Ratio 0.6 (0.9-2); Bilirubin,Total 0.7 mg/dl (0.2-1); Globulin 4.9 gm/dl (2.5-4.0); Thyroid Stimulating Hormone 0.81 uIu/ml (0.300-4.500); Total Protein 7.8 gm/dl (6.4-8.2); Troponin I 0.019 ng/ml (0-0.045)
[2018-12-27] MEDS ORDERED: methylPREDNISolone 125 MG/2 ML VIAL IV STA (13:12)
[2018-12-27] MEDS ORDERED: RAPID SEQUENCE INDUCTION BAG ONE (13:19)
[2018-12-27] MEDS ORDERED: SUCCINYLCHOLINE CHLORIDE 20 MG/ML 10 ML VIAL IV STA (13:22)
[2018-12-27] MEDS ORDERED: ETOMIDATE 2 MG/ML 20 ML VIAL IV ONE ×2 (13:22→19:56)
[2018-12-27] MEDS: PROPOFOL 1,000 MG/100 ML VIAL IV SCH ×3 (13:38→23:42)
[2018-12-27 13:43] LABS: iSTAT Arterial Blood Gas HCO3 17 meg/L (19-24); iSTAT Arterial Blood Gas pCO2 53 mmHg (35-46); iSTAT Arterial Blood Gas pH 7.12 (7.35-7.45); iSTAT Arterial Blood Gas pO2 85 mmHg (80-95); iSTAT Carbon Dioxide 19 mEq/l (24-31)
--- NOTE | 2018-12-27 13:59 | XRay Report ---
XR chest 1V portable CLINICAL HISTORY: 78 years-old Female presenting with intubation. TECHNIQUE: Portable semiupright AP view of the chest was obtained. COMPARISON: 12/27/2018. FINDINGS: Endotracheal tube terminates in the mid thoracic proximal 4 cm from the deysi to the deysi is poorl y visualized. Atherosclerosis of the aortic arch. Cardiac silhouette shifted to the left as on prior exam. Extensive left lung opacities with suspected left pleural effusion. Volume loss of the left kurtis g. The right lung is hyperinflated with coarsened lung markings and mild vascular prominence. Dense n odular opacity in the periphery of the right mid lung likely present on prior and may represent a gra nuloma. No pneumothorax. Degenerative changes of the thoracic spine. IMPRESSION: 1. Appropriately positioned endotracheal tube. 2. Extensive left lung infiltrates progressive since August. Possible associated left pleural effusion . Underlying infection not excluded among other possible etiologies. 3. Background chronic lung disease likely emphysema. Electronically signed by: Fam Stauffer M.D. 12/27/2018 1:58 PM
[2018-12-27] MEDS ORDERED: OPTIRAY 320 125ml IV PRN (14:29)
--- NOTE | 2018-12-27 14:35 | CT Scan Report ---
CT head/brain wo con CLINICAL HISTORY: 78 years-old Female with ams. Acutely altered mental status TECHNIQUE: Multiple axial CT images of the head were obtained without contrast. A dose lowering tech nique was utilized adhering to the principles of ALARA. CT DOSE: 614.27 mGy.cm COMPARISON: Head CT 12/22/2016. FINDINGS: No acute intracranial hemorrhage, midline shift, intracranial mass, hydrocephalus, territorial ischem ia or abnormal extra-axial collection. Mild age-related involutional changes. Mild degree of patchy w jamey matter hypodensities suggest chronic microvascular ischemic disease. The calvarium is intact. Prior bilateral cataract repair. Mild mucosal thickening of the nasal turbin ates. The paranasal sinuses, mastoid air cells, and middle ear cavities are clear. IMPRESSION: No acute intracranial abnormality. The above report was generated using voice recognition software. It may contain grammatical, syntax o r spelling errors. Electronically signed by: Eamon Mccloud M.D. 12/27/2018 2:33 PM
--- NOTE | 2018-12-27 14:42 | CT Scan Report ---
CT ANGIOGRAM OF THE CHEST CLINICAL HISTORY: Respiratory failure. Possible pulmonary embolism. UNRESPONSIVE EPISODE COMPARISON STUDY: Noncontrast CT scan dated 11/13/2018, chest x-ray dated 12/27/2018 TECHNIQUE: Following the IV administration of 119 mL of [id number]-320, CT angiogram of the thorax was p erformed from the thoracic inlet to the lung bases utilizing the pulmonary embolus protocol. Images a re reviewed in the axial, sagittal, and coronal planes. IV contrast was administered without complica tion. MIP imaging was performed. A dose lowering technique was utilized adhering to the principles o f ALARA. CT DOSE: 512.82 mGy.cm FINDINGS: There are persistent mildly enlarged mediastinal and right hilar lymph nodes. There was no evidence of thoracic aortic dilatation. There were no pulmonary artery filling defects to indicate acute pulmonary embolism. There are small bilateral pleural effusions. There are calcified pleural plaques. There is an endotra cheal tube 3 cm above the deysi. There is severe pulmonary emphysema. There is extensive left lung volume loss. There are persistent e xtensive left lung areas of consolidation with bronchiectasis. There are dependent right lower lobe a telectatic changes. There is right lower lobe bronchial wall thickening with areas of mucous plugging . There are chronic right middle lobe atelectatic changes with areas of bronchial wall thickening. Th ere is a new 1 cm irregular right upper lobe pulmonary nodule. This is likely infectious/inflammatory given that it was not present 6 weeks prior. IMPRESSION: 1. Severe pulmonary emphysema 2. No evidence of acute pulmonary embolism 3. Stable left lung volume loss, bronchiectasis, and parenchymal consolidation 4. Small left pleural effusion 5. Interval development of a small right pleural effusion with right basilar atelectasis 6. Right middle lobe and right lower lobe bronchial wall thickening and mucous plugging 7. Chronic volume loss and fibrotic changes in the right middle lobe 8. New irregular 1 cm right upper lobe nodule, likely infectious/inflammatory 9. Stable mild adenopathy 10. Calcified pleural plaques Electronically signed by: Roosevelt Mejia M.D. 12/27/2018 2:41 PM
[2018-12-27 14:58] LABS: iSTAT Arterial Blood Gas HCO3 44 meg/L (19-24); iSTAT Arterial Blood Gas pCO2 78 mmHg (35-46); iSTAT Arterial Blood Gas pH 7.36 (7.35-7.45); iSTAT Arterial Blood Gas pO2 74 mmHg (80-95); iSTAT Carbon Dioxide > 40 mEq/l (24-31)
[2018-12-27 15:02] LABS: Appearance Urine Cloudy (Clear); Bacteria Urine Automated Negative (Negative); Bilirubin Urine Negative (Negative); Blood Urine Negative (Negative); Color Urine Yellow; Epithelial Cell Urine Auto 20-30 /lpf (0-5); Glucose Urine UA 2+ (Negative); Ketones Urine 1+ (Negative); Leukocyte Esterase Urine Negative (Negative); Nitrite Urine Negative (Negative); Protein Urine 1+ (Negative); Specific Gravity Urine 1.027 (1.000-1.030); Urobilinogen Urine Negative (Negative)
[2018-12-27] MEDS ORDERED: VANCOMYCIN CONSULT ACTIVE PRN (15:47)
[2018-12-27] MEDS ORDERED: VANCOMYCIN HCL 1,500 MG in SODIUM CHLORIDE 0.9% 500 ML IV STA (15:48)
[2018-12-27] MEDS ORDERED: AMIKACIN CONSULT ACTIVE PRN (15:55)
[2018-12-27] MEDS: AZITHROMYCIN 500 MG in DEXTROSE 5% 250 ML IV SCH (15:58)
--- NOTE | 2018-12-27 15:58 | History & Physical Report ---
Date of Service December 27, 2018 Assessment & Plan (1) Acute respiratory failure: 78yo C female with very severe COPD (FEV1 of 31% per Pulmonary note from September 2017), oxygen dependence on 4L NC during the day and HS presenting with acute hypoxic hypercapnic respiratory failure. 1. Neuro: Patient intubated, sedated on Propofol gtt. She has been agitated requiring increase in drip, now more calm -Continue Propofol drip, titrate to RASS 0 - -1 -Fentanyl 50 mcg IV q 2 hours as needed for pain 2. Pulmonary: Patient with very severe COPD (FEV1 31%), O2 dependent, nocturnal CPAP use. Admitted to [facility] in August with multifocal CAP mainly involving the left lung. She was treated briefly with Vanc and Zosyn then Ceftriaxone and Azithromycin and DCd on PO Azithro x 5 day course. Family reports that she completed this medication as directed and recovered. She presents today with acute hypoxic/hypercapnic respiratory failure, failed trial of BiPAP in the ER now intubated. CTA Chest with severe pulmonary, stable left lung volume loss, bronchiectasis and parenchymal consolidation, small left pleural effusion, small right pleural effusion, right basilar atelectasis, RML and RLL bronchial wall thickening with mucus plugging. New irregular 1cm RUL nodule, calcified pleural plaques. -Admit to MICU -Plan for bronchoscopy later today with possible washout and biopsy -Solumedrol 30mg IV TID (Patient on Prednisone 10mg PO daily at baseline) -DuoNeb q 4 hours -Albuterol q2 hrs PRN -Azithromycin, ?MAC infection -ID Consult 3. Cardio - patient ST at 102 bpm, BP stable. History of HTN. Troponin detectable at 0.019 -Continue Diltiazem -Repeat troponin at 20:00 -Check BNP 4. GI - Patient with history of fatty liver disease. LFT abnormalities to include elevated AP to 194 (up from 166) and low albumin 2.9 (near baseline) -Repeat LFTs in AM. If worsened would consider imaging -Protonix 40mg po daily for GI ppx during mechanical ventilation 5. - No active issues. Amezcua catheter in place -Amezcua management q shift 6. Heme - patient with mild neutrophil predominant leukocytosis, WBC-11.62, left shift. Stable normochromic/normocytic anemia. Most likely secondary to acute infectious process -Repeat CBC in AM 7. ID - suspect acute infectious process. Afebrile, hemodynamically stable. Lactate negative. -Cultures to be sent from bronch -Vancomycin and Azithromycin -ID consultation appreciated 8. Endocrine - patient with history of DM, well controlled on Metformin. Last A1C=7.9 in August 2018. Blood sugar presently elevated to 286. Patient with osteoporosis on Risendronate -MICU insulin protocol, goal <180 in critically ill patient -Hold Metformin F/E/N - LR, monitor electrolytes and replete as needed, NPO for now Ppx - SCDs, Protonix Code - DNR per discussion with patient's family. She has a living will Disposition - Admission to MICU (2) Altered mental status: (3) Diabetes mellitus type 2, uncontrolled: (4) COPD (chronic obstructive pulmonary disease): (5) Dyslipidemia: History of Present Illness Chief Complaint: Respiratory failure Primary Care Provider: Matias Ram MD 78yo C female with very severe COPD (FEV1 of 31% per Pulmonary note from September 2017), oxygen dependence on 4L NC during the day and HS presenting with acute hypoxic hypercapnic respiratory failure. History obtained from and granddaughter at bedside as well as chart review and discussion with ER staff. Patient intubated and sedated at time of encounter. Has been reports that yesterday the patient was sleepy and less interactive than usual. This morning the found her to be "lifeless", minimally responsive and somnolent. Saturation reported to be 73% this morning while patient was on 4 L of oxygen by nasal cannula. Her turned up the oxygen and later placed her on CPAP with improvement in saturation to approximately 90%. When she arrived to the emergency room she was found to be tachycardic at 122 bpm, tachypneic at 37 breaths/min. Initially with adequate saturation of 99% on 4 L of nasal cannula. Patient continued to be tachypneic and was placed on BiPAP. Initial blood gas with pH = 7.12, PCO2 = 53, PO2 = 85 (prior ABGs show chronic respiratory acidosis with CO2 70-80's and HCO3 in 40's) she ultimately failed BiPAP and was intubated. Repeat gas with pH=7.36, pCO2 of 78 and pO2=74. CT image results as below ER Course: Vancomycin 1500mg, Azithromycin 500mg, Solumedrol 125mg, Zosyn 4.5 gm, Albuterol Succinylcholine, Etomidate, Propofol Rifampin, Ethambutol, Amikacin - Ordered, not yet given Allergies Allergy/AdvReac Type Severity Reaction Status Date / Time Wqqgubx-Beh-Obs Reductase Allergy Unknown Verified 12/27/18 16:09 Inhibitor Home Medications Home Medications Medication Instructions Recorded Confirmed Type Incruse Ellipta 1 inh INHALATION DAILY 08/21/18 12/27/18 History albuterol sulfate 2 puff INHALATION QID PRN 08/21/18 12/27/18 History albuterol sulfate 2.5 mg INHALATION Q4H PRN 08/21/18 12/27/18 History alprazolam 0.25 mg PO DAILY PRN 08/21/18 12/27/18 History cholecalciferol (vitamin D3) 1,000 unit PO DAILY 08/21/18 12/27/18 History [Vitamin D3] cranberry extract 250 mg PO DAILY 08/21/18 12/27/18 History metformin 500 mg PO BID 08/21/18 12/27/18 History niacin 500 mg PO BID 08/21/18 12/27/18 History omega 5-ixl-sku-fish oil [Fish Oil] 1 cap PO DAILY 08/21/18 12/27/18 History risedronate 35 mg PO WK 08/21/18 12/27/18 History vitamin E 1,000 unit PO DAILY 08/21/18 12/27/18 History prednisone 10 mg tablet 10 mg PO DAILY #90 tab 09/04/18 12/27/18 Rx diltiazem CD 300 mg 300 mg PO QAM #90 cap 11/16/18 12/27/18 Rx capsule,extended release 24 hr Past Med/Surg History Medical History Acute and chronic respiratory failure with hypercapnia (Resolved) Anemia (Resolved) COPD exacerbation (Resolved) Chronic obstructive pulmonary disease (Resolved) Chronic respiratory failure with hypoxia and hypercapnia (Resolved) Falls frequently (Resolved) Fatty liver (Resolved) HTN (hypertension) (Resolved) Hyperlipidemia (Resolved) Hypoxia (Resolved) Impaired fasting glucose (Resolved) Influenza vaccine needed (Resolved) Insomnia (Resolved) Internal hemorrhoids (Resolved) Osteopenia (Resolved) Other specified disorders of bone density and structure, other site (Resolved) PNA (pneumonia) (Resolved 06/20/13) Pleural effusion on left (Resolved) Pneumonia (Resolved) Respiratory distress (Resolved 06/20/13) Respiratory failure (Resolved) Sepsis (Resolved) Shortness of breath (Resolved) Tubular adenoma of colon (Resolved) Type 2 diabetes mellitus (Resolved) Family History Other Family history non-contributory Social History Preferred Language: Armenian Communication Ability: Effective 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 Patient with no complaints of chest pain or palpitations. She has a stable nonproductive cough and wheezing. No c omplaints of abdominal pain, nausea, vomiting, diarrhea or constipation. No complaints of urinary difficulty. Physical Exam Physical Exam: General: patient intubated, sedated, moving all extremities spontaneously Skin: warm, dry, intact, no rashes or lesions HEENT: NC/AT, pupils pinpoint, reactive to light, anicteric sclera, conjunctiva without injection, external ear normal to inspection and nontender, nares patent, moist mucus membranes, ETT in place, neck supple, trachea midline, no LAD, no thyromegaly, no JVD Heart: +S1/S2, regular, tachycardic, no m/r/g Lungs: Diminished breath sounds bilaterally, coarse crackles left mid lung field and left base, crackles right mid lung field, scattered end expiratory wheezing bilaterally Abd: +BS, soft, nondistended, no masses/organomegaly/ascites Ext: warm, 2+ pulses in UE/LE bilaterally, no clubbing/cyanosis or edema Neuro: Patient intubated, sedated, opens eyes to verbal stimuli, moving extremities Results & Data Vital Signs (Past 12 Hours) Vital Signs Temp Pulse Pulse Resp BP BP Pulse Ox 12/27/18 15:30 109 H 147/69 H 97 12/27/18 15:20 94 H 143/102 H 98 12/27/18 15:11 102 H 159/89 H 98 12/27/18 15:00 103 H 157/80 H 98 12/27/18 14:50 108 H 139/72 97 12/27/18 14:49 106 H 154/74 H 97 12/27/18 13:50 110 H 165/99 H 100 12/27/18 13:43 115 H 20 207/122 H 100 12/27/18 13:40 120 H 20 212/126 H 100 12/27/18 13:38 20 12/27/18 13:30 126 H 19 162/85 H 96 12/27/18 13:25 130 H 177/89 H 87 L 12/27/18 13:24 128 H 36 H 177/89 H 87 L 12/27/18 13:02 144 H 26 H 96 12/27/18 13:00 137 H 29 H 99 12/27/18 12:30 128 H 35 H 157/83 H 99 12/27/18 12:26 129 H 32 H 99 12/27/18 12:25 37.0 C 125 H 22 165/84 H 99 12/27/18 12:19 122 H 36 H 165/84 H 99 Laboratory Results Lab Results 12/27/18 12/27/18 12/27/18 Range/Units 11:50 11:50 12:56 WBC 11.62 H (4.8-10.8) K/uL RBC 3.74 L (4.2-5.4) M/uL Hgb 10.9 L (12.0-16.0) g/dL Hct 37.1 (37-47) % MCV 99.2 (80-100) fL MCH 29.1 (25-34) pg MCHC 29.4 L (32-36) g/dL RDW Std Deviation 48.7 H (36.4-46.3) fL RDW Coeff of Nataly 13.5 (11.5-14.5) % Plt Count 301 (130-400) K/uL MPV 9.5 (7.4-10.4) fL Immature Gran % (Auto) 0.7 % Neut % (Auto) 84.6 % Lymph % (Auto) 6.0 % [place] % (Auto) 7.9 % Eos % (Auto) 0.6 % Baso % (Auto) 0.2 % Immature Gran # (Auto) 0.08 H (0.00-0.02) K/uL Neut # (Auto) 9.83 H (1.4-6.5) K/uL Lymph # (Auto) 0.70 L (1.2-3.4) K/uL [place] # (Auto) 0.92 H (0.11-0.59) K/uL Eos # (Auto) 0.07 (0-0.5) K/uL Baso # (Auto) 0.02 (0-0.2) K/uL POC pH (7.35-7.45) POC pCO2 (35-46) mmHg POC pO2 (80-95) mmHg POC HCO3 (19-24) kalyan/L POC Total CO2 (24-31) mEq/l POC Base Excess (-9-1.8) kalyan/L POC ABG O2 Sat (90-95) % Sodium 139 (136-145) mmol/L Potassium 3.6 (3.5-5.1) mmol/L Chloride 91 L (98-107) mmol/L Carbon Dioxide 44 H* (21-32) mmol/L Anion Gap 4.0 (3-11) BUN 16 (7-18) mg/dl Creatinine 0.75 (0.6-1.2) mg/dl Est Cr Clr Drug Dosing 60.1 ml/min Est GFR ( Amer) 88.5 Est GFR (Non-Af Amer) 76.3 BUN/Creatinine Ratio 21.0 H (10-20) Glucose 286 H (70-99) mg/dl POC Glucose 234 H (70-99) POC Lactic Acid Osvaldo (0.90-1.70) mmol/L Calcium 9.3 (8.5-10.1) mg/dl Total Bilirubin 0.7 (0.2-1) mg/dl AST 21 (15-37) U/L ALT 29 (12-78) U/L Alkaline Phosphatase 194 H (45-117) U/L Ammonia (11-32) umol/L Troponin I 0.019 (0-0.045) ng/ml Total Protein 7.8 (6.4-8.2) gm/dl Albumin 2.9 L (3.4-5.0) gm/dl Globulin 4.9 H (2.5-4.0) gm/dl Albumin/Globulin Ratio 0.6 L (0.9-2) TSH 0.810 (0.300-4.500) uIu/ml Urine Color Urine Appearance (Clear) Urine pH (4.5-7.5) Ur Specific [place] (1.000-1.030) Urine Protein (Negative) Urine Glucose (UA) (Negative) Urine Ketones (Negative) Urine Blood (Negative) Urine Nitrite (Negative) Urine Bilirubin (Negative) Urine Urobilinogen (Negative) Ur Leukocyte Esterase (Negative) Urine WBC (Auto) (0-5) /hpf Urine RBC (Auto) (0-4) /hpf U Hyaline Cast (Auto) (0-5) /lpf U Epithel Cells (Auto) (0-5) /lpf Urine Bacteria (Auto) (Negative) Granular Casts (0) /lpf 12/27/18 12/27/18 12/27/18 Range/Units 13:05 13:12 13:20 WBC (4.8-10.8) K/uL RBC (4.2-5.4) M/uL Hgb (12.0-16.0) g/dL Hct (37-47) % MCV (80-100) fL MCH (25-34) pg MCHC (32-36) g/dL RDW Std Deviation (36.4-46.3) fL RDW Coeff of Nataly (11.5-14.5) % Plt Count (130-400) K/uL MPV (7.4-10.4) fL Immature Gran % (Auto) % Neut % (Auto) % Lymph % (Auto) % [place] % (Auto) % Eos % (Auto) % Baso % (Auto) % Immature Gran # (Auto) (0.00-0.02) K/uL Neut # (Auto) (1.4-6.5) K/uL Lymph # (Auto) (1.2-3.4) K/uL [place] # (Auto) (0.11-0.59) K/uL Eos # (Auto) (0-0.5) K/uL Baso # (Auto) (0-0.2) K/uL POC pH 7.12 L* (7.35-7.45) POC pCO2 53 H (35-46) mmHg POC pO2 85 (80-95) mmHg POC HCO3 17 L (19-24) kalyan/L POC Total CO2 19 L (24-31) mEq/l POC Base Excess -12.0 L (-9-1.8) kalyan/L POC ABG O2 Sat 92.0 (90-95) % Sodium (136-145) mmol/L Potassium (3.5-5.1) mmol/L Chloride (98-107) mmol/L Carbon Dioxide (21-32) mmol/L Anion Gap (3-11) BUN (7-18) mg/dl Creatinine (0.6-1.2) mg/dl Est Cr Clr Drug Dosing ml/min Est GFR ( Amer) Est GFR (Non-Af Amer) BUN/Creatinine Ratio (10-20) Glucose (70-99) mg/dl POC Glucose (70-99) POC Lactic Acid Osvaldo 0.67 L (0.90-1.70) mmol/L Calcium (8.5-10.1) mg/dl Total Bilirubin (0.2-1) mg/dl AST (15-37) U/L ALT (12-78) U/L Alkaline Phosphatase (45-117) U/L Ammonia 21.4 (11-32) umol/L Troponin I (0-0.045) ng/ml Total Protein (6.4-8.2) gm/dl Albumin (3.4-5.0) gm/dl Globulin (2.5-4.0) gm/dl Albumin/Globulin Ratio (0.9-2) TSH (0.300-4.500) uIu/ml Urine Color Urine Appearance (Clear) Urine pH (4.5-7.5) Ur Specific [place] (1.000-1.030) Urine Protein (Negative) Urine Glucose (UA) (Negative) Urine Ketones (Negative) Urine Blood (Negative) Urine Nitrite (Negative) Urine Bilirubin (Negative) Urine Urobilinogen (Negative) Ur Leukocyte Esterase (Negative) Urine WBC (Auto) (0-5) /hpf Urine RBC (Auto) (0-4) /hpf U Hyaline Cast (Auto) (0-5) /lpf U Epithel Cells (Auto) (0-5) /lpf Urine Bacteria (Auto) (Negative) Granular Casts (0) /lpf 12/27/18 12/27/18 Range/Units 14:42 14:54 WBC (4.8-10.8) K/uL RBC (4.2-5.4) M/uL Hgb (12.0-16.0) g/dL Hct (37-47) % MCV (80-100) fL MCH (25-34) pg MCHC (32-36) g/dL RDW Std Deviation (36.4-46.3) fL RDW Coeff of Nataly (11.5-14.5) % Plt Count (130-400) K/uL MPV (7.4-10.4) fL Immature Gran % (Auto) % Neut % (Auto) % Lymph % (Auto) % [place] % (Auto) % Eos % (Auto) % Baso % (Auto) % Immature Gran # (Auto) (0.00-0.02) K/uL Neut # (Auto) (1.4-6.5) K/uL Lymph # (Auto) (1.2-3.4) K/uL [place] # (Auto) (0.11-0.59) K/uL Eos # (Auto) (0-0.5) K/uL Baso # (Auto) (0-0.2) K/uL POC pH 7.36 (7.35-7.45) POC pCO2 78 H (35-46) mmHg POC pO2 74 L (80-95) mmHg POC HCO3 44 H (19-24) kalyan/L POC Total CO2 > 40 H* (24-31) mEq/l POC Base Excess 18.0 H (-9-1.8) kalyan/L POC ABG O2 Sat 93.0 (90-95) % Sodium (136-145) mmol/L Potassium (3.5-5.1) mmol/L Chloride (98-107) mmol/L Carbon Dioxide (21-32) mmol/L Anion Gap (3-11) BUN (7-18) mg/dl Creatinine (0.6-1.2) mg/dl Est Cr Clr Drug Dosing ml/min Est GFR ( Amer) Est GFR (Non-Af Amer) BUN/Creatinine Ratio (10-20) Glucose (70-99) mg/dl POC Glucose (70-99) POC Lactic Acid Os[place] (0.90-1.70) mmol/L Calcium (8.5-10.1) mg/dl Total Bilirubin (0.2-1) mg/dl AST (15-37) U/L ALT (12-78) U/L Alkaline Phosphatase (45-117) U/L Ammonia (11-32) umol/L Troponin I (0-0.045) ng/ml Total Protein (6.4-8.2) gm/dl Albumin (3.4-5.0) gm/dl Globulin (2.5-4.0) gm/dl Albumin/Globulin Ratio (0.9-2) TSH (0.300-4.500) uIu/ml Urine Color Yellow Urine Appearance Cloudy A (Clear) Urine pH 5.0 (4.5-7.5) Ur Specific [place] 1.027 (1.000-1.030) Urine Protein 1+ H (Negative) Urine Glucose (UA) 2+ H (Negative) Urine Ketones 1+ H (Negative) Urine Blood Negative (Negative) Urine Nitrite Negative (Negative) Urine Bilirubin Negative (Negative) Urine Urobilinogen Negative (Negative) Ur Leukocyte Esterase Negative (Negative) Urine WBC (Auto) 1-5 (0-5) /hpf Urine RBC (Auto) 5-10 H (0-4) /hpf U Hyaline Cast (Auto) 10-30 H (0-5) /lpf U Epithel Cells (Auto) 20-30 H (0-5) /lpf Urine Bacteria (Auto) Negative (Negative) Granular Casts 1-5 H (0) /lpf Diagnostic Findings XR chest 1V portable CLINICAL HISTORY: 78 years-old Female presenting with intubation. TECHNIQUE: Portable semiupright AP view of the chest was obtained. COMPARISON: 12/27/2018. FINDINGS: Endotracheal tube terminates in the mid thoracic proximal 4 cm from the deysi to the deysi is poorly visualized. Atherosclerosis of the aortic arch. Cardiac silhouette shifted to the left as on prior exam. Extensive left lung opacities with suspected left pleural effusion. Volume loss of the left lung. The right lung is hyperinflated with coarsened lung markings and mild vascular prominence. Dense nodular opacity in the periphery of the right mid lung likely present on prior and may represent a granuloma. No pneumothorax. Degenerative changes of the thoracic spine. IMPRESSION: 1. Appropriately positioned endotracheal tube. 2. Extensive left lung infiltrates progressive since August. Possible associated left pleural effusion. Underlying infection not excluded among other possible etiologies. 3. Background chronic lung disease likely emphysema. Electronically signed by: Fam Stauffer M.D. 12/27/2018 1:58 PM Dictated: 12/27/18 135 Transcribed: 12/27/[address] ANGIOGRAM OF THE CHEST CLINICAL HISTORY: Respiratory failure. Possible pulmonary embolism. UNRESPONSIVE EPISODE COMPARISON STUDY: Noncontrast CT scan dated 11/13/2018, chest x-ray dated 12/27/2018 TECHNIQUE: Following the IV administration of 119 mL of [id number]-320, CT angiogram of the thorax was performed from the thoracic inlet to the lung bases utilizing the pulmonary embolus protocol. Images are reviewed in the axial, sagittal, and coronal planes. IV contrast was administered without complication. MIP imaging was performed. A dose lowering technique was utilized adhering to the principles of ALARA. CT DOSE: 512.82 mGy.cm FINDINGS: There are persistent mildly enlarged mediastinal and right hilar lymph nodes. There was no evidence of thoracic aortic dilatation. There were no pulmonary artery filling defects to indicate acute pulmonary embolism. There are small bilateral pleural effusions. There are calcified pleural plaques. There is an endotracheal tube 3 cm above the deysi. There is severe pulmonary emphysema. There is extensive left lung volume loss. There are persistent extensive left lung areas of consolidation with bronchiectasis. There are dependent right lower lobe atelectatic changes. There is right lower lobe bronchial wall thickening with areas of mucous plugging. There are chronic right middle lobe atelectatic changes with areas of bronchial wall thickening. There is a new 1 cm irregular right upper lobe pulmonary nodule. This is likely infectious/inflammatory given that it was not present 6 weeks prior. IMPRESSION: 1. Severe pulmonary emphysema 2. No evidence of acute pulmonary embolism 3. Stable left lung volume loss, bronchiectasis, and parenchymal consolidation 4. Small left pleural effusion 5. Interval development of a small right pleural effusion with right basilar atelectasis 6. Right middle lobe and right lower lobe bronchial wall thickening and mucous plugging 7. Chronic volume loss and fibrotic changes in the right middle lobe 8. New irregular 1 cm right upper lobe nodule, likely infectious/inflammatory 9. Stable mild adenopathy 10. Calcified pleural plaques Electronically signed by: Roosevelt Mejia M.D. 12/27/2018 2:41 PM Dictated: 12/27/18 1432 Transcribed: 12/27/[address] head/brain wo con CLINICAL HISTORY: 78 years-old Female with ams. Acutely altered mental status TECHNIQUE: Multiple axial CT images of the head were obtained without contrast. A dose lowering technique was utilized adhering to the principles of ALARA. CT DOSE: 614.27 mGy.cm COMPARISON: Head CT 12/22/2016. FINDINGS: No acute intracranial hemorrhage, midline shift, intracranial mass, hydrocephalus, territorial ischemia or abnormal extra-axial collection. Mild age-related involutional changes. Mild degree of patchy white matter hypodensities suggest chronic microvascular ischemic disease. The calvarium is intact. Prior bilateral cataract repair. Mild mucosal thickening of the nasal turbinates. The paranasal sinuses, mastoid air cells, and middle ear cavities are clear. IMPRESSION: No acute intracranial abnormality. The above report was generated using voice recognition software. It may contain grammatical, syntax or spelling errors. Electronically signed by: Eamon Mccloud M.D. 12/27/2018 2:33 PM Dictated: 12/27/18 1430 Transcribed: 12/27/181429 XR chest 1V portable CLINICAL HISTORY: weakness COMPARISON STUDY: 11/08/2018 FINDINGS: There is persistent extensive left lung volume loss with areas of left lung parenchymal consolidation similar to the prior study. There is radiographic evidence of emphysema. There is a small right pleural effusion. There is elevation of the right lung interstitium suggesting mild pulmonary vascular congestion/fluid overload.[ IMPRESSION: 1. Extensive chronic changes within the left hemithorax with left lung volume loss and parenchymal consolidation. 2. Interval development of mild pulmonary vascular congestion/fluid overload with small right pleural effusion Electronically signed by: Roosevelt Mejia M.D. 12/27/2018 12:50 PM Dictated: 12/27/18 1248 Transcribed: 12/27/18 1248 ECG Additional Comments: The study shows ST at 126bpm with PACs, TW flattening in inferior leads, no STEMI Code Status & VTE Plan VTE Prophylaxis Plan VTE Prophylaxis will be ordered: Yes Critical Care Time Critical Care Time: Yes Total Critical Care Time: 60 PG Care Time/CCT Total # of Minutes Spent Total Time Spent with Patient: Total time spent is greater than 50% in coordination of care (as documented) at patient's floor/unit and/or counseling patient: Critical Care Time: Yes Total Critical Care Time: 60 (1) Acute respiratory failure Respiratory failure complication: unspecified whether with hypoxia or hypercapnia Qualified Code(s): J96.00 - Acute respiratory failure, unspecified whether with hypoxia or hypercapnia (2) Altered mental status Altered mental status type: unspecified Qualified Code(s): R41.82 - Altered mental status, unspecified
[2018-12-27] MEDS ORDERED: CEFEPIME CONSULT ACTIVE PRN (16:03)
--- NOTE | 2018-12-27 17:07 | Critical Care Consultation ---
Date of Consultation December 27, 2018 Assessment & Plan (1) Admitted to intensive care unit: Reason Critically Ill: Acute Hypoxic Hypercarbic Resp Failure in setting of severe COPD requiring mech ventilation NEURO Pt on Mech Vent Sedation with propofol gtt CV HTN- cont diltiazem 300 mg qam Slight trop elevation 0.019 likely 2/2 Type II [place]. Repeat trop pending PULM H/O Severe COPD- FEV1 of 31% per Pulmonary note from September 2017 Oxygen dependent at home on 4L NC , HS CPAP use Solumedrol 30mg IV TID DuoNeb q4 hours Albuterol q2 hrs PRN Acute hypoxic hypercapnic respiratory failure CTA Chest with severe pulmonary, stable L lung volume loss, bronchiectasis and parenchymal consolidation, small left pleural effusion, small right pleural effusion, right basilar atelectasis, RML and RLL bronchial wall thickening with mucus plugging Now on mech vent after failing BiPAP Bronch today- cx sent out Cont with Azithromycin, Vancomycin, Levaquin ABD/GI H/O fatty liver disease- trend LFT's GI PPx: IV Protonix 40mg po daily /RENAL Amezcua catheter in place- Strict I/O's Replete electrolytes as needed ID Cont Vancomycin, Azithromycin, Levaquin for suspected infectious etiology as above Blood cx pending ID Consult appreciated ENDO H/O DM. A1C 7.27 August 2018 ICU Hyperglycemia Protocol HEME Stable H/H- No concern for acute bleeding Cont trend daily CBC's LINES: PIVx3, Amezcua DVT Prophylaxis: SCD's, Lovenox SQ Conditional Code: DNR DISPO: ICU Supervising Physician Co-Signing Physician Notes Dr. Robertson was resident physician during care of patient. I separately evaluated patient for mondragon portions of the history and the exam. I was present during the critical portion of medical decision making, and I discussed the case with the resident. I generally agree with the findings and plan. Patient had acute hypoxic respiratory failure, it appears she has acute on chronic hypercapnic as well as hypoxic respiratory failure who is normally on supplemental oxygen. CT scan was obtained and it looks that she has chronic bronchiectasis and likely destruction of her left lower lobe and there has been a compensatory hyperinflation and expansion of the right lung. Certainly the patient appears to have severe fibrocavitary disease. She has not been treated in the past so we will start empiric treatment for Mycobacterium avium complex with azithromycin, rifampin, but FAM reviewed all as well as streptomycin for 4 drug therapy. While I do believe that this is chronic in nature we will also cover her for community-acquired pneumonia with cefepime and vancomycin. If the patient's MRSA swab is negative we can discontinue the vancomycin. Discussed with the patient's granddaughter and regarding her wishes should she suffer a cardiac arrest and they both agree she would not want heroic measures undertaken, accordingly the patient is DO NOT RESUSCITATE in event of cardiac arrest. History of Present Illness Reason for Consultation: hypercarbic hypoxic resp failure History of Present Illness 78yo C female with very severe COPD (FEV1 of 31% per Pulmonary note from September 19), oxygen dependence on 4L NC during the day and HS presenting with acute hypoxic hypercapnic respiratory failure. Has been reports that yesterday the patient was sleepy and less interactive than usual. This morning the found her to be "lifeless", minimally responsive and somnolent. Saturation reported to be 73% this morning while patient was on 4 L of oxygen by nasal cannula. Her turned up the oxygen and later placed her on CPAP with improvement in saturation to approximately 90%. In ER she was found to be tachycardic at 122 bpm, tachypneic at 37 breaths/min. Initially with adequate saturation of 99% on 4 L of nasal cannula. Patient continued to be tachypneic and was placed on BiPAP. Initial blood gas with pH = 7.12, PCO2 = 53, PO2 = 85 (prior ABGs show chronic respiratory acidosis with CO2 70-80's and HCO3 in 40's) she ultimately failed BiPAP and was intubated. Repeat gas with pH=7.36, pCO2 of 78 and pO2=74. ER Course: Vancomycin 1500mg, Azithromycin 500mg, Solumedrol 125mg, Zosyn 4.5 gm, Albuterol Succinylcholine, Etomidate, Propofol, Rifampin, Ethambutol, Amikacin Critical Care consulted for ongoing management of mechanical vent. Allergies Allergy/AdvReac Type Severity Reaction Status Date / Time Hxectvl-Jgk-Czu Reductase Allergy Unknown Verified 12/27/18 16:09 Inhibitor Home Medications Home Medications Medication Instructions Recorded Confirmed Type Incruse Ellipta 1 inh INHALATION DAILY 08/21/18 12/27/18 History albuterol sulfate 2 puff INHALATION QID PRN 08/21/18 12/27/18 History albuterol sulfate 2.5 mg INHALATION Q4H PRN 08/21/18 12/27/18 History alprazolam 0.25 mg PO DAILY PRN 08/21/18 12/27/18 History cholecalciferol (vitamin D3) 1,000 unit PO DAILY 08/21/18 12/27/18 History [Vitamin D3] cranberry extract 250 mg PO DAILY 08/21/18 12/27/18 History metformin 500 mg PO BID 08/21/18 12/27/18 History niacin 500 mg PO BID 08/21/18 12/27/18 History omega 2-ejt-vzh-fish oil [Fish Oil] 1 cap PO DAILY 08/21/18 12/27/18 History risedronate 35 mg PO WK 08/21/18 12/27/18 History vitamin E 1,000 unit PO DAILY 08/21/18 12/27/18 History prednisone 10 mg tablet 10 mg PO DAILY #90 tab 09/04/18 12/27/18 Rx diltiazem CD 300 mg 300 mg PO QAM #90 cap 11/16/18 12/27/18 Rx capsule,extended release 24 hr Patient History Medical History Acute and chronic respiratory failure with hypercapnia (Resolved) Anemia (Resolved) COPD exacerbation (Resolved) Chronic obstructive pulmonary disease (Resolved) Chronic respiratory failure with hypoxia and hypercapnia (Resolved) Falls frequently (Resolved) Fatty liver (Resolved) HTN (hypertension) (Resolved) Hyperlipidemia (Resolved) Hypoxia (Resolved) Impaired fasting glucose (Resolved) Influenza vaccine needed (Resolved) Insomnia (Resolved) Internal hemorrhoids (Resolved) Osteopenia (Resolved) Other specified disorders of bone density and structure, other site (Resolved) PNA (pneumonia) (Resolved 06/20/13) Pleural effusion on left (Resolved) Pneumonia (Resolved) Respiratory distress (Resolved 06/20/13) Respiratory failure (Resolved) Sepsis (Resolved) Shortness of breath (Resolved) Tubular adenoma of colon (Resolved) Type 2 diabetes mellitus (Resolved) Family History Other Family history non-contributory Social History Preferred Language: Yoruba Communication Ability: Effective 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 Beliefs That Will Affect Care: None marital status: Current Living Situation: Spouse current occupational status: retired Feels Safe at Home: Yes Smoking Status: Former smoker Hx Alcohol Use: No Hx Substance Use: No Review of Systems Review of Systems: Unobtainable due to endotracheal tube Physical Exam Constitutional: + mechanically ventilated Eyes: PERRL, conjunctivae normal, anicteric sclerae ENMT: external ear and nose normal, oropharynx normal Respiratory: diminished lung sounds b/l wheezing throughout rhonchi at b/l bases Cardiovascular: RRR, no murmur, no edema Gastrointestinal (Abdomen): normal bowel sounds, soft, nontender, no hepatosplenomegaly Skin: no rashes, warm and dry Results & Data Vital Signs (Past 12 Hours) Vital Signs Temp Pulse Pulse Resp BP BP Pulse Ox 12/27/18 16:31 98 H 139/88 98 12/27/18 16:20 103 H 107/72 97 12/27/18 16:10 115 H 149/99 H 98 12/27/18 16:00 105 H 114/86 98 12/27/18 15:50 102 H 127/78 98 12/27/18 15:40 102 H 131/87 98 12/27/18 15:30 109 H 147/69 H 97 12/27/18 15:20 94 H 143/102 H 98 12/27/18 15:11 102 H 159/89 H 98 12/27/18 15:00 103 H 157/80 H 98 12/27/18 14:50 108 H 139/72 97 12/27/18 14:49 106 H 154/74 H 97 12/27/18 13:50 110 H 165/99 H 100 12/27/18 13:43 115 H 20 207/122 H 100 12/27/18 13:40 120 H 20 212/126 H 100 12/27/18 13:38 20 12/27/18 13:30 126 H 19 162/85 H 96 12/27/18 13:25 130 H 177/89 H 87 L 12/27/18 13:24 128 H 36 H 177/89 H 87 L 12/27/18 13:02 144 H 26 H 96 12/27/18 13:00 137 H 29 H 99 12/27/18 12:30 128 H 35 H 157/83 H 99 12/27/18 12:26 129 H 32 H 99 12/27/18 12:25 37.0 C 125 H 22 165/84 H 99 12/27/18 12:19 122 H 36 H 165/84 H 99 Laboratory Results Laboratory Results - last 24 hr 12/27/18 12/27/18 12/27/18 11:50 11:50 12:56 WBC 11.62 H RBC 3.74 L Hgb 10.9 L Hct 37.1 MCV 99.2 MCH 29.1 MCHC 29.4 L RDW Std Deviation 48.7 H RDW Coeff of Nataly 13.5 Plt Count 301 MPV 9.5 Immature Gran % (Auto) 0.7 Neut % (Auto) 84.6 Lymph % (Auto) 6.0 Stanly % (Auto) 7.9 Eos % (Auto) 0.6 Baso % (Auto) 0.2 Immature Gran # (Auto) 0.08 H Neut # (Auto) 9.83 H Lymph # (Auto) 0.70 L Stanly # (Auto) 0.92 H Eos # (Auto) 0.07 Baso # (Auto) 0.02 POC pH POC pCO2 POC pO2 POC HCO3 POC Total CO2 POC Base Excess POC ABG O2 Sat Sodium 139 Potassium 3.6 Chloride 91 L Carbon Dioxide 44 H* Anion Gap 4.0 BUN 16 Creatinine 0.75 Est Cr Clr Drug Dosing 60.1 Est GFR ( Amer) 88.5 Est GFR (Non-Af Amer) 76.3 BUN/Creatinine Ratio 21.0 H Glucose 286 H POC Glucose 234 H POC Lactic Acid Arter POC Lactic Acid Osvaldo Calcium 9.3 Total Bilirubin 0.7 AST 21 ALT 29 Alkaline Phosphatase 194 H Ammonia Troponin I 0.019 Total Protein 7.8 Albumin 2.9 L Globulin 4.9 H Albumin/Globulin Ratio 0.6 L TSH 0.810 Urine Color Urine Appearance Urine pH Ur Specific Laurel Urine Protein Urine Glucose (UA) Urine Ketones Urine Blood Urine Nitrite Urine Bilirubin Urine Urobilinogen Ur Leukocyte Esterase Urine WBC (Auto) Urine RBC (Auto) U Hyaline Cast (Auto) U Epithel Cells (Auto) Urine Bacteria (Auto) Granular Casts 12/27/18 12/27/18 12/27/18 13:05 13:12 13:20 WBC RBC Hgb Hct MCV MCH MCHC RDW Std Deviation RDW Coeff of Nataly Plt Count MPV Immature Gran % (Auto) Neut % (Auto) Lymph % (Auto) Stanly % (Auto) Eos % (Auto) Baso % (Auto) Immature Gran # (Auto) Neut # (Auto) Lymph # (Auto) Stanly # (Auto) Eos # (Auto) Baso # (Auto) POC pH 7.12 L* POC pCO2 53 H POC pO2 85 POC HCO3 17 L POC Total CO2 19 L POC Base Excess -12.0 L POC ABG O2 Sat 92.0 Sodium Potassium Chloride Carbon Dioxide Anion Gap BUN Creatinine Est Cr Clr Drug Dosing Est GFR ( Amer) Est GFR (Non-Af Amer) BUN/Creatinine Ratio Glucose POC Glucose POC Lactic Acid Arter POC Lactic Acid Osvaldo 0.67 L Calcium Total Bilirubin AST ALT Alkaline Phosphatase Ammonia 21.4 Troponin I Total Protein Albumin Globulin Albumin/Globulin Ratio TSH Urine Color Urine Appearance Urine pH Ur Specific [place] Urine Protein Urine Glucose (UA) Urine Ketones Urine Blood Urine Nitrite Urine Bilirubin Urine Urobilinogen Ur Leukocyte Esterase Urine WBC (Auto) Urine RBC (Auto) U Hyaline Cast (Auto) U Epithel Cells (Auto) Urine Bacteria (Auto) Granular Casts 12/27/18 12/27/18 12/27/18 14:42 14:48 14:54 WBC RBC Hgb Hct MCV MCH MCHC RDW Std Deviation RDW Coeff of Ntaaly Plt Count MPV Immature Gran % (Auto) Neut % (Auto) Lymph % (Auto) Stanly % (Auto) Eos % (Auto) Baso % (Auto) Immature Gran # (Auto) Neut # (Auto) Lymph # (Auto) Stanly # (Auto) Eos # (Auto) Baso # (Auto) POC pH 7.36 POC pCO2 78 H POC pO2 74 L POC HCO3 44 H POC Total CO2 > 40 H* POC Base Excess 18.0 H POC ABG O2 Sat 93.0 Sodium Potassium Chloride Carbon Dioxide Anion Gap BUN Creatinine Est Cr Clr Drug Dosing Est GFR ( Amer) Est GFR (Non-Af Amer) BUN/Creatinine Ratio Glucose POC Glucose POC Lactic Acid Arter Pending POC Lactic Acid Osvaldo Calcium Total Bilirubin AST ALT Alkaline Phosphatase Ammonia Troponin I Total Protein Albumin Globulin Albumin/Globulin Ratio TSH Urine Color Yellow Urine Appearance Cloudy A Urine pH 5.0 Ur Specific Laurel 1.027 Urine Protein 1+ H Urine Glucose (UA) 2+ H Urine Ketones 1+ H Urine Blood Negative Urine Nitrite Negative Urine Bilirubin Negative Urine Urobilinogen Negative Ur Leukocyte Esterase Negative Urine WBC (Auto) 1-5 Urine RBC (Auto) 5-10 H U Hyaline Cast (Auto) 10-30 H U Epithel Cells (Auto) 20-30 H Urine Bacteria (Auto) Negative Granular Casts 1-5 H Medications Administered Current Inpatient Medications Amikacin Sulfate (Amikacin Consult Active) 1 ea N/A UD PRN PRN Reason: Consult Stop: 01/26/19 15:54 Ethambutol HCl (Myambutol) 800 mg PO HS KEV Stop: 01/26/19 20:59 Ethambutol HCl (Myambutol) 200 mg PO HS KEV Stop: 01/26/19 20:59 Propofol (Diprivan) 1,000 mg in 100 mls @ 6.138 mls/hr IV .[id number] KEV; Protocol Stop: 12/30/18 13:29 Last Titration: 12/27/18 15:15 Dose: 45 mcg/kg/min, 18.4 mls/hr Documented by: Vancomycin HCl 1,500 mg/ (Sodium Chloride) 530 mls @ 200 mls/hr IV NOW STA Stop: 12/27/18 18:26 Last Admin: 12/27/18 15:58 Dose: 200 mls/hr Documented by: Azithromycin 500 mg/ Dextrose 255 mls @ 127.5 mls/hr IV Q24H KEV Stop: 01/03/19 15:59 Last Admin: 12/27/18 15:58 Dose: 127.5 mls/hr Documented by: Rifampin 600 mg/ Dextrose 510 mls @ 170 mls/hr IV Q24H [facility] Stop: 01/03/19 17:59 Amikacin Sulfate 750 mg/ (Dextrose) 253 mls @ 250 mls/hr IV [id number] [facility] Stop: 01/26/19 20:59 Cefepime HCl 2,000 mg/ Syringe 20 mls @ 5 mls/min IV Q8H [facility] Stop: 01/03/19 18:59 Vancomycin HCl 1,000 mg/ (Sodium Chloride) 270 mls @ 125 mls/hr IV Q14H [facility] Stop: 01/04/19 05:59 Ioversol (Optiray 320 125ml) 119 ml IV ONCE PRN PRN Reason: Interaction Checking Stop: 12/31/18 14:28 Last Admin: 12/27/18 14:30 Dose: 119 ml Documented by: Miscellaneous Information (Consult) 1 ea N/A UD PRN PRN Reason: Consult Stop: 01/26/19 15:46 Miscellaneous Information (Cefepime Consult Active) 1 ea N/A UD PRN PRN Reason: Consult Stop: 01/26/19 16:02 PG Care Time/CCT Total # of Minutes Spent Total Time Spent: 90 Total Time Spent with Patient: Total time spent is greater than 50% in coordination of care (as documented) at patient's floor/unit and/or counseling patient: Critical Care Time: Yes Total Critical Care Time: 90 I have personally spent 90 minutes of critical care time in the direct management of this patient. This is a life/limb threatening event. This includes time spent evaluating patient, direct bedside care, chart review, placing orders, interpretation of diagnostic studies, discussion with consultants, patient, and/or family members regarding treatment decisions, as well as other required patient management activities. This time is exclusive of all separately billable procedures, and teaching time and separate from and in addition to any other critical care service time. Resident Activity Tracking Resident Involvement: Resident Care Provided Care Provided: Adult [facility]
[2018-12-27] MEDS ORDERED: fentaNYL citrate 100 MCG/2 ML VIAL IV PRN (17:44)
[2018-12-27] MEDS ORDERED: ICU PROTOCOL FOR HYPERGLYCEMIA PRN (17:44)
[2018-12-27] MEDS ORDERED: ALBUTEROL 0.5% NEB SOLN 2.5 MG/0.5 ML VIAL NEB PRN (17:44)
[2018-12-27] MEDS ORDERED: fentaNYL citrate 100 MCG/2 ML VIAL ONE (17:51)
[2018-12-27] MEDS ORDERED: rifAMPin 600 MG in DEXTROSE 5% 500 ML IV SCH (18:00)
[2018-12-27] MEDS ORDERED: fentaNYL citrate 100 MCG/2 ML VIAL IV STA (18:09)
[2018-12-27] MEDS ORDERED: LEVOFLOXACIN/D5W 750 MG/150 ML BAG IV SCH (18:30)
--- NOTE | 2018-12-27 18:57 | Emergency Department Note ---
Entered by Sarina Ray acting as a scribe for History of Present Illness General Chief complaint: Lethargic Source: family History of Present Illness Onset (ago): day(s) (yesterday) Location: head Pain Consistency: + other (worsening) Quality: + other (lethargy) Associated symptoms: + denies other symptoms (recent falls, being in any pain) and + other (O2 saturation of 73%); no shortness of breath The patient is a 78 year old female who presents to the Emergency Room with complaints of worsening lethargy starting yesterday. The patients states that yesterday the patient was sort of groggy and was sleeping on and off all day. He states that this morning when he tried to get her up she really didnt talk or even wake up besides opening her eyes for a few seconds. He states that when he checked her O2 saturations, they were at 73%. He reports that she normally wears 4L O2 at all times, but typically doesnt breathe through her nose. He states that he tried to get her to do a nebulizer treatment this morning, but she wouldnt do it. He states that he then tried to get her to use the C-PAP machine that she should use, but doesnt and it didnt help any so he bought her in. The patient notes that she has been like this before, but has always turned around on Bi-PAP. He notes that she did take her medications this morning. The patients denies recent falls, complaining of any pain, complaining of being short of breath, and ever needing a breathing tube. Home Medications Home Medications Medication Instructions Recorded Confirmed Type Incruse Ellipta 1 inh INHALATION DAILY 08/21/18 12/27/18 History albuterol sulfate 2 puff INHALATION QID PRN 08/21/18 12/27/18 History albuterol sulfate 2.5 mg INHALATION Q4H PRN 08/21/18 12/27/18 History alprazolam 0.25 mg PO DAILY PRN 08/21/18 12/27/18 History cholecalciferol (vitamin D3) 1,000 unit PO DAILY 08/21/18 12/27/18 History [Vitamin D3] cranberry extract 250 mg PO DAILY 08/21/18 12/27/18 History metformin 500 mg PO BID 08/21/18 12/27/18 History niacin 500 mg PO BID 08/21/18 12/27/18 History omega 6-hec-yiy-fish oil [Fish Oil] 1 cap PO DAILY 08/21/18 12/27/18 History risedronate 35 mg PO WK 08/21/18 12/27/18 History vitamin E 1,000 unit PO DAILY 08/21/18 12/27/18 History prednisone 10 mg tablet 10 mg PO DAILY #90 tab 09/04/18 12/27/18 Rx diltiazem CD 300 mg 300 mg PO QAM #90 cap 11/16/18 12/27/18 Rx capsule,extended release 24 hr Allergies Allergy/AdvReac Type Severity Reaction Status Date / Time Fmrwbtu-Bih-Bga Reductase Allergy Unknown Verified 12/27/18 16:09 Inhibitor Past Med/Surg History Medical History Acute and chronic respiratory failure with hypercapnia (Resolved) Anemia (Resolved) COPD exacerbation (Resolved) Chronic obstructive pulmonary disease (Resolved) Chronic respiratory failure with hypoxia and hypercapnia (Resolved) Falls frequently (Resolved) Fatty liver (Resolved) HTN (hypertension) (Resolved) Hyperlipidemia (Resolved) Hypoxia (Resolved) Impaired fasting glucose (Resolved) Influenza vaccine needed (Resolved) Insomnia (Resolved) Internal hemorrhoids (Resolved) Osteopenia (Resolved) Other specified disorders of bone density and structure, other site (Resolved) PNA (pneumonia) (Resolved 06/20/13) Pleural effusion on left (Resolved) Pneumonia (Resolved) Respiratory distress (Resolved 06/20/13) Respiratory failure (Resolved) Sepsis (Resolved) Shortness of breath (Resolved) Tubular adenoma of colon (Resolved) Type 2 diabetes mellitus (Resolved) Family History Other Family history non-contributory Social History Preferred Language: [place] 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 and A total of 10 systems reviewed and were otherwise negative Physical Exam Vital Signs Vital Signs - 24 hr 12/27/18 12:19 12/27/18 12:25 12/27/18 12:26 Temperature 37.0 C Temperature Source Oral Sepsis Recent Fever Within 48 Hours No Sepsis New/Unexplained Change in Mental Status Yes Sepsis Action Taken by Nursing No Action Required End-Tidal CO2 Pulse Rate 122 H 125 H 129 H Pulse Rate [Left] Pulse Rate from SpO2 Sensor 122 H 124 H Respiratory Rate 36 H 22 32 H Respiratory Effort / Characteristics Non-Labored Spontaneous Respiratory Depth Normal Respiratory Pattern Regular Blood Pressure 165/84 H 165/84 H Blood Pressure [Right Arm] Blood Pressure Mean 111 111 Blood Pressure Mean [Right Arm] Blood Pressure Position Lying Blood Pressure Position [Right Arm] Pulse Oximetry 99 99 99 Oxygen Delivery Method Nasal Cannula Oxygen Flow Rate 4 Fraction of Inspired Oxygen 12/27/18 12:30 12/27/18 13:00 12/27/18 13:02 Temperature Temperature Source Sepsis Recent Fever Within 48 Hours Sepsis New/Unexplained Change in Mental Status Sepsis Action Taken by Nursing End-Tidal CO2 Pulse Rate 128 H 137 H Pulse Rate [Left] 144 H Pulse Rate from SpO2 Sensor 126 H 130 H Respiratory Rate 35 H 29 H 26 H Respiratory Effort / Characteristics Spontaneous Spontaneous Respiratory Depth Shallow Respiratory Pattern Rapid/Shallow Blood Pressure 157/83 H Blood Pressure [Right Arm] Blood Pressure Mean 107 Blood Pressure Mean [Right Arm] Blood Pressure Position Blood Pressure Position [Right Arm] Pulse Oximetry 99 99 96 Oxygen Delivery Method Oxygen Flow Rate Fraction of Inspired Oxygen 80 80 12/27/18 13:24 12/27/18 13:25 12/27/18 13:30 Temperature Temperature Source Sepsis Recent Fever Within 48 Hours Sepsis New/Unexplained Change in Mental Status Sepsis Action Taken by Nursing End-Tidal CO2 Pulse Rate 128 H 126 H Pulse Rate [Left] 130 H Pulse Rate from SpO2 Sensor 121 H 126 H Respiratory Rate 36 H 19 Respiratory Effort / Characteristics Respiratory Depth Respiratory Pattern Blood Pressure 177/89 H 162/85 H Blood Pressure [Right Arm] 177/89 H Blood Pressure Mean 118 110 Blood Pressure Mean [Right Arm] 118 Blood Pressure Position Blood Pressure Position [Right Arm] Lying Pulse Oximetry 87 L 87 L 96 Oxygen Delivery Method BiPAP Oxygen Flow Rate Fraction of Inspired Oxygen 12/27/18 13:38 12/27/18 13:40 12/27/18 13:43 Temperature Temperature Source Sepsis Recent Fever Within 48 Hours Sepsis New/Unexplained Change in Mental Status Sepsis Action Taken by Nursing End-Tidal CO2 56 Pulse Rate 120 H 115 H Pulse Rate [Left] Pulse Rate from SpO2 Sensor 120 H 115 H Respiratory Rate 20 20 20 Respiratory Effort / Characteristics Respiratory Depth Respiratory Pattern Blood Pressure 212/126 H 207/122 H Blood Pressure [Right Arm] Blood Pressure Mean 154 150 Blood Pressure Mean [Right Arm] Blood Pressure Position Blood Pressure Position [Right Arm] Pulse Oximetry 100 100 Oxygen Delivery Method Oxygen Flow Rate Fraction of Inspired Oxygen 80 12/27/18 13:50 12/27/18 14:49 12/27/18 14:50 Temperature Temperature Source Sepsis Recent Fever Within 48 Hours Sepsis New/Unexplained Change in Mental Status Sepsis Action Taken by Nursing End-Tidal CO2 62 51 50 Pulse Rate 110 H 106 H 108 H Pulse Rate [Left] Pulse Rate from SpO2 Sensor 109 H 106 H 104 H Respiratory Rate Respiratory Effort / Characteristics Respiratory Depth Respiratory Pattern Blood Pressure 165/99 H 154/74 H 139/72 Blood Pressure [Right Arm] Blood Pressure Mean 121 100 94 Blood Pressure Mean [Right Arm] Blood Pressure Position Blood Pressure Position [Right Arm] Pulse Oximetry 100 97 97 Oxygen Delivery Method Mechanical Vent Mechanical Vent Oxygen Flow Rate Fraction of Inspired Oxygen 12/27/18 15:00 12/27/18 15:11 12/27/18 15:20 Temperature Temperature Source Sepsis Recent Fever Within 48 Hours Sepsis New/Unexplained Change in Mental Status Sepsis Action Taken by Nursing End-Tidal CO2 46 46 45 Pulse Rate 103 H 102 H 94 H Pulse Rate [Left] Pulse Rate from SpO2 Sensor 92 H 95 H 101 H Respiratory Rate Respiratory Effort / Characteristics Respiratory Depth Respiratory Pattern Blood Pressure 157/80 H 159/89 H 143/102 H Blood Pressure [Right Arm] Blood Pressure Mean 105 112 115 Blood Pressure Mean [Right Arm] Blood Pressure Position Blood Pressure Position [Right Arm] Pulse Oximetry 98 98 98 Oxygen Delivery Method Mechanical Vent Mechanical Vent Mechanical Vent Oxygen Flow Rate Fraction of Inspired Oxygen 12/27/18 15:30 12/27/18 15:40 Temperature Temperature Source Sepsis Recent Fever Within 48 Hours Sepsis New/Unexplained Change in Mental Status Sepsis Action Taken by Nursing End-Tidal CO2 44 43 Pulse Rate 109 H 102 H Pulse Rate [Left] Pulse Rate from SpO2 Sensor 104 H 100 H Respiratory Rate Respiratory Effort / Characteristics Respiratory Depth Respiratory Pattern Blood Pressure 147/69 H 131/87 Blood Pressure [Right Arm] Blood Pressure Mean 95 101 Blood Pressure Mean [Right Arm] Blood Pressure Position Blood Pressure Position [Right Arm] Pulse Oximetry 97 98 Oxygen Delivery Method Mechanical Vent Mechanical Vent Oxygen Flow Rate Fraction of Inspired Oxygen GENERAL: Responsive to painful stimuli. HENT: Normocephalic, atraumatic. EYES: Normal conjunctiva. Sclera non-icteric. PERRL NECK: Supple. No nuchal rigidity. RESPIRATORY: Diminished breath sounds on the left side. Increased work of breathing. CARDIAC: Tachycardic rate. Normal rhythm. Extremities warm and well perfused. GI: Soft, non-distended. No tenderness to palpation. No masses. RECTAL: Deferred. MUSCULOSKELETAL: Atraumatic. Chest examination reveals no tenderness. LOWER EXTREMITIES: Calves are equal size bilaterally and non-tender. Trace pedal edema NEURO: Responsive to painful stimuli. Withdraws in all 4 extremities. SKIN: Warm and dry. No rash or jaundice noted. Procedures Free Text Procedures Endotracheal Intubation Indication: Altered Mental Status and Respiratory Failure The patient was on 100% oxygen via Bipap prior to the procedure. Suction, airway equipment, RSI drugs, respiratory equipment, and appropriate personnel were prepared prior to the initiation of the procedure. A time out was taken. Induction was performed with 20 mg of Etomidate and 120 mg of Succinylcholine Chloride. After observing the clinical benefit of the medications, the airway was easily visualized utilizing a glide scope. A 7.5 size ETT tube was placed atraumatically to 21 cm using standard technique. The cuff inflated without signs of malfunction. There were bilateral breath sounds, positive colormetric change, no gastric sounds, a good capnography waveform, and post procedure pulse oximetry was 98%. Post intubation sedation and paralysis was administered using a Propofol Drip. There were no complications. Course 1230: Past medical records reviewed. The patient was evaluated in room C2B. A complete history and physical exam was performed. 1303: I reevaluated the patient and she is now on Bi-PAP. She has no change in h er breathing. 1317: I reevaluated the patient and she has had no change in her breathing. We are going to intubate her. Her signed the consent at this time. 1321: The patient was moved to A1 at this time. 1328: I intubated the patient at this time. 1335: I updated the patient's family at this time. 1440: I reevaluated the patient and updated the patient's family on her test results at this time. I discussed the treatment plan with them. They verbally agree and understand. 1444: I discussed the patient's case with Dr. Mary VAZQUEZ Hospitalist. She will evaluate the patient for further management. Consultations Consultation #1: I discussed the patient's case with Dr. Mary VAZQUEZ Hospitalist. She will evaluate the patient for further management. Time: 14:44 Administered Medications Propofol (Diprivan) 1,000 mg in 100 mls @ 6.138 mls/hr IV .[id number] KEV; Protocol Stop: 12/30/18 13:29 Last Admin: 12/27/18 18:15 Dose: 45 mcg/kg/min, 18.4 mls/hr Documented by: [id number] Cosigned by: [id number] Titration: 12/27/18 18:15 Dose: 45 mcg/kg/min, 18.4 mls/hr Documented by: [id number] Cosigned by: [id number] Titration: 12/27/18 15:15 Dose: 45 mcg/kg/min, 18.4 mls/hr Documented by: [id number] Titration: 12/27/18 15:03 Dose: 40 mcg/kg/min, 16.4 mls/hr Documented by: [id number] Admin: 12/27/18 13:38 Dose: 15 mcg/kg/min, 6.1 mls/hr Documented by: [id number] Cosigned by: [id number] Azithromycin 500 mg/ Dextrose 255 mls @ 127.5 mls/hr IV Q24H [facility] Stop: 01/03/19 15:59 Last Infusion: 12/27/18 17:58 Dose: 0 mls/hr Documented by: [id number] Admin: 12/27/18 15:58 Dose: 127.5 mls/hr Documented by: [id number] Levofloxacin/Dextrose (Levaquin/D5w) 750 mg in 150 mls @ 100 mls/hr IV Q24H [facility] Stop: 01/03/19 18:29 Last Admin: 12/27/18 18:23 Dose: 100 mls/hr Documented by: [id number] Discontinued Medications Albuterol (Duoneb) 12 ml NEB ONE ONE Stop: 12/27/18 12:35 Last Admin: 12/27/18 13:00 Dose: 12 ml Documented by: [id number] Etomidate (Amidate) 20 mg IV NOW ONE Stop: 12/27/18 13:23 Last Admin: 12/27/18 13:31 Dose: 20 mg Documented by: [id number] Fentanyl Citrate (Fentanyl Citrate) Confirm Administered Dose 100 mcg .ROUTE .STK-MED ONE Stop: 12/27/18 17:52 Last Increment: 12/27/18 17:55 Dose: 50 mcg Documented by: [id number] Fentanyl Citrate (Fentanyl Citrate) 50 mcg IV NOW STA Stop: 12/27/18 18:10 Last Admin: 12/27/18 18:14 Dose: Not Given Documented by: [id number] Sodium Chloride (Nss 1000ml) 1,000 mls @ 999 mls/hr IV .Q1H1M ONE Stop: 12/27/18 13:35 Last Infusion: 12/27/18 14:24 Dose: 0 mls/hr Documented by: [id number] Admin: 12/27/18 13:06 Dose: 999 mls/hr Documented by: [id number] Piperacillin Sod/Tazobactam Sod (Zosyn) 4.5 gm in 120 mls @ 240 mls/hr IV NOW ONE Stop: 12/27/18 13:27 Last Infusion: 12/27/18 14:24 Dose: 0 mls/hr Documented by: [id number] Admin: 12/27/18 13:10 Dose: 240 mls/hr Documented by: [id number] Vancomycin HCl 1,500 mg/ (Sodium Chloride) 530 mls @ 200 mls/hr IV NOW STA Stop: 12/27/18 18:26 Last Admin: 12/27/18 15:58 Dose: 200 mls/hr Documented by: [id number] Ioversol (Optiray 320 125ml) 119 ml IV ONCE PRN PRN Reason: Interaction Checking Stop: 12/31/18 14:28 Last Admin: 12/27/18 14:30 Dose: 119 ml Documented by: [id number] Methylprednisolone (Solumedrol) 125 mg IV NOW STA Stop: 12/27/18 13:13 Last Admin: 12/27/18 13:44 Dose: 125 mg Documented by: [id number] Miscellaneous () Confirm Administered Dose 1 ea .ROUTE .STK-MED ONE Stop: 12/27/18 13:20 Last Admin: 12/27/18 13:20 Dose: 1 ea Documented by: [id number] Succinylcholine Chloride (Quelicin) 120 mg IV NOW STA Stop: 12/27/18 13:23 Last Admin: 12/27/18 13:31 Dose: 120 mg Documented by: [id number] Medical Decision Making Differential Diagnosis Differential diagnoses includes but is not limited to toxic, metabolic, infectious, traumatic, cardiac, neurologic, hematologic, psychiatric and inflammatory etiologies. Medical Records Attestation: I reviewed the patient's medical records. Home Medications Current Medication List: was personally reviewed by me Laboratory Data Attestation: I reviewed the patient's lab results. Result diagrams: 12/27/18 11:50 12/27/18 11:50 Lab Results 12/27/18 12/27/18 12/27/18 Range/Units 11:50 11:50 12:56 WBC 11.62 H (4.8-10.8) K/uL RBC 3.74 L (4.2-5.4) M/uL Hgb 10.9 L (12.0-16.0) g/dL Hct 37.1 (37-47) % MCV 99.2 (80-100) fL MCH 29.1 (25-34) pg MCHC 29.4 L (32-36) g/dL RDW Std Deviation 48.7 H (36.4-46.3) fL RDW Coeff of Nataly 13.5 (11.5-14.5) % Plt Count 301 (130-400) K/uL MPV 9.5 (7.4-10.4) fL Immature Gran % (Auto) 0.7 % Neut % (Auto) 84.6 % Lymph % (Auto) 6.0 % Ulster % (Auto) 7.9 % Eos % (Auto) 0.6 % Baso % (Auto) 0.2 % Immature Gran # (Auto) 0.08 H (0.00-0.02) K/uL Neut # (Auto) 9.83 H (1.4-6.5) K/uL Lymph # (Auto) 0.70 L (1.2-3.4) K/uL Ulster # (Auto) 0.92 H (0.11-0.59) K/uL Eos # (Auto) 0.07 (0-0.5) K/uL Baso # (Auto) 0.02 (0-0.2) K/uL POC pH (7.35-7.45) POC pCO2 (35-46) mmHg POC pO2 (80-95) mmHg POC HCO3 (19-24) kalyan/L POC Total CO2 (24-31) mEq/l POC Base Excess (-9-1.8) kalyan/L POC ABG O2 Sat (90-95) % Sodium 139 (136-145) mmol/L Potassium 3.6 (3.5-5.1) mmol/L Chloride 91 L (98-107) mmol/L Carbon Dioxide 44 H* (21-32) mmol/L Anion Gap 4.0 (3-11) BUN 16 (7-18) mg/dl Creatinine 0.75 (0.6-1.2) mg/dl Est Cr Clr Drug Dosing 60.1 ml/min Est GFR ( Amer) 88.5 Est GFR (Non-Af Amer) 76.3 BUN/Creatinine Ratio 21.0 H (10-20) Glucose 286 H (70-99) mg/dl POC Glucose 234 H (70-99) POC Lactic Acid Osvaldo (0.90-1.70) mmol/L Calcium 9.3 (8.5-10.1) mg/dl Total Bilirubin 0.7 (0.2-1) mg/dl AST 21 (15-37) U/L ALT 29 (12-78) U/L Alkaline Phosphatase 194 H (45-117) U/L Ammonia (11-32) umol/L Troponin I 0.019 (0-0.045) ng/ml Total Protein 7.8 (6.4-8.2) gm/dl Albumin 2.9 L (3.4-5.0) gm/dl Globulin 4.9 H (2.5-4.0) gm/dl Albumin/Globulin Ratio 0.6 L (0.9-2) TSH 0.810 (0.300-4.500) uIu/ml Urine Color Urine Appearance (Clear) Urine pH (4.5-7.5) Ur Specific Jackson (1.000-1.030) Urine Protein (Negative) Urine Glucose (UA) (Negative) Urine Ketones (Negative) Urine Blood (Negative) Urine Nitrite (Negative) Urine Bilirubin (Negative) Urine Urobilinogen (Negative) Ur Leukocyte Esterase (Negative) Urine WBC (Auto) (0-5) /hpf Urine RBC (Auto) (0-4) /hpf U Hyaline Cast (Auto) (0-5) /lpf U Epithel Cells (Auto) (0-5) /lpf Urine Bacteria (Auto) (Negative) Granular Casts (0) /lpf 12/27/18 12/27/18 12/27/18 Range/Units 13:05 13:12 13:20 WBC (4.8-10.8) K/uL RBC (4.2-5.4) M/uL Hgb (12.0-16.0) g/dL Hct (37-47) % MCV (80-100) fL MCH (25-34) pg MCHC (32-36) g/dL RDW Std Deviation (36.4-46.3) fL RDW Coeff of Nataly (11.5-14.5) % Plt Count (130-400) K/uL MPV (7.4-10.4) fL Immature Gran % (Auto) % Neut % (Auto) % Lymph % (Auto) % Ulster % (Auto) % Eos % (Auto) % Baso % (Auto) % Immature Gran # (Auto) (0.00-0.02) K/uL Neut # (Auto) (1.4-6.5) K/uL Lymph # (Auto) (1.2-3.4) K/uL Ulster # (Auto) (0.11-0.59) K/uL Eos # (Auto) (0-0.5) K/uL Baso # (Auto) (0-0.2) K/uL POC pH 7.12 L* (7.35-7.45) POC pCO2 53 H (35-46) mmHg POC pO2 85 (80-95) mmHg POC HCO3 17 L (19-24) kalyan/L POC Total CO2 19 L (24-31) mEq/l POC Base Excess -12.0 L (-9-1.8) kalyan/L POC ABG O2 Sat 92.0 (90-95) % Sodium (136-145) mmol/L Potassium (3.5-5.1) mmol/L Chloride (98-107) mmol/L Carbon Dioxide (21-32) mmol/L Anion Gap (3-11) BUN (7-18) mg/dl Creatinine (0.6-1.2) mg/dl Est Cr Clr Drug Dosing ml/min Est GFR ( Amer) Est GFR (Non-Af Amer) BUN/Creatinine Ratio (10-20) Glucose (70-99) mg/dl POC Glucose (70-99) POC Lactic Acid Osvaldo 0.67 L (0.90-1.70) mmol/L Calcium (8.5-10.1) mg/dl Total Bilirubin (0.2-1) mg/dl AST (15-37) U/L ALT (12-78) U/L Alkaline Phosphatase (45-117) U/L Ammonia 21.4 (11-32) umol/L Troponin I (0-0.045) ng/ml Total Protein (6.4-8.2) gm/dl Albumin (3.4-5.0) gm/dl Globulin (2.5-4.0) gm/dl Albumin/Globulin Ratio (0.9-2) TSH (0.300-4.500) uIu/ml Urine Color Urine Appearance (Clear) Urine pH (4.5-7.5) Ur Specific Jackson (1.000-1.030) Urine Protein (Negative) Urine Glucose (UA) (Negative) Urine Ketones (Negative) Urine Blood (Negative) Urine Nitrite (Negative) Urine Bilirubin (Negative) Urine Urobilinogen (Negative) Ur Leukocyte Esterase (Negative) Urine WBC (Auto) (0-5) /hpf Urine RBC (Auto) (0-4) /hpf U Hyaline Cast (Auto) (0-5) /lpf U Epithel Cells (Auto) (0-5) /lpf Urine Bacteria (Auto) (Negative) Granular Casts (0) /lpf 12/27/18 12/27/18 Range/Units 14:42 14:54 WBC (4.8-10.8) K/uL RBC (4.2-5.4) M/uL Hgb (12.0-16.0) g/dL Hct (37-47) % MCV (80-100) fL MCH (25-34) pg MCHC (32-36) g/dL RDW Std Deviation (36.4-46.3) fL RDW Coeff of Nataly (11.5-14.5) % Plt Count (130-400) K/uL MPV (7.4-10.4) fL Immature Gran % (Auto) % Neut % (Auto) % Lymph % (Auto) % Ulster % (Auto) % Eos % (Auto) % Baso % (Auto) % Immature Gran # (Auto) (0.00-0.02) K/uL Neut # (Auto) (1.4-6.5) K/uL Lymph # (Auto) (1.2-3.4) K/uL Ulster # (Auto) (0.11-0.59) K/uL Eos # (Auto) (0-0.5) K/uL Baso # (Auto) (0-0.2) K/uL POC pH 7.36 (7.35-7.45) POC pCO2 78 H (35-46) mmHg POC pO2 74 L (80-95) mmHg POC HCO3 44 H (19-24) kalyan/L POC Total CO2 > 40 H* (24-31) mEq/l POC Base Excess 18.0 H (-9-1.8) kalyan/L POC ABG O2 Sat 93.0 (90-95) % Sodium (136-145) mmol/L Potassium (3.5-5.1) mmol/L Chloride (98-107) mmol/L Carbon Dioxide (21-32) mmol/L Anion Gap (3-11) BUN (7-18) mg/dl Creatinine (0.6-1.2) mg/dl Est Cr Clr Drug Dosing ml/min Est GFR ( Amer) Est GFR (Non-Af Amer) BUN/Creatinine Ratio (10-20) Glucose (70-99) mg/dl POC Glucose (70-99) POC Lactic Acid Osvaldo (0.90-1.70) mmol/L Calcium (8.5-10.1) mg/dl Total Bilirubin (0.2-1) mg/dl AST (15-37) U/L ALT (12-78) U/L Alkaline Phosphatase (45-117) U/L Ammonia (11-32) umol/L Troponin I (0-0.045) ng/ml Total Protein (6.4-8.2) gm/dl Albumin (3.4-5.0) gm/dl Globulin (2.5-4.0) gm/dl Albumin/Globulin Ratio (0.9-2) TSH (0.300-4.500) uIu/ml Urine Color Yellow Urine Appearance Cloudy A (Clear) Urine pH 5.0 (4.5-7.5) Ur Specific Jackson 1.027 (1.000-1.030) Urine Protein 1+ H (Negative) Urine Glucose (UA) 2+ H (Negative) Urine Ketones 1+ H (Negative) Urine Blood Negative (Negative) Urine Nitrite Negative (Negative) Urine Bilirubin Negative (Negative) Urine Urobilinogen Negative (Negative) Ur Leukocyte Esterase Negative (Negative) Urine WBC (Auto) 1-5 (0-5) /hpf Urine RBC (Auto) 5-10 H (0-4) /hpf U Hyaline Cast (Auto) 10-30 H (0-5) /lpf U Epithel Cells (Auto) 20-30 H (0-5) /lpf Urine Bacteria (Auto) Negative (Negative) Granular Casts 1-5 H (0) /lpf Imaging Data Radiologist's Impression: Radiology results as stated below per my review and the radiologist's interpretation: XR chest 1V portable CLINICAL HISTORY: weakness COMPARISON STUDY: 11/08/2018 FINDINGS: There is persistent extensive left lung volume loss with areas of left lung parenchymal consolidation similar to the prior study. There is radiographic evidence of emphysema. There is a small right pleural effusion. There is elevation of the right lung interstitium suggesting mild pulmonary vascular congestion/fluid overload.[ IMPRESSION: 1. Extensive chronic changes within the left hemithorax with left lung volume lo ss and parenchymal consolidation. 2. Interval development of mild pulmonary vascular congestion/fluid overload with small right pleural effusion Electronically signed by: Roosevelt Mejia M.D. 12/27/2018 12:[address] head/brain wo con CLINICAL HISTORY: 78 years-old Female with ams. Acutely altered mental status TECHNIQUE: Multiple axial CT images of the head were obtained without contrast. A dose lowering technique was utilized adhering to the principles of ALARA. CT DOSE: 614.27 mGy.cm COMPARISON: Head CT 12/22/2016. FINDINGS: No acute intracranial hemorrhage, midline shift, intracranial mass, hydrocephalus, territorial ischemia or abnormal extra-axial collection. Mild age-related involutional changes. Mild degree of patchy white matter hypodensities suggest chronic microvascular ischemic disease. The calvarium is intact. Prior bilateral cataract repair. Mild mucosal thickening of the nasal turbinates. The paranasal sinuses, mastoid air cells, and middle ear cavities are clear. IMPRESSION: No acute intracranial abnormality. The above report was generated using voice recognition software. It may contain grammatical, syntax or spelling errors. Electronically signed by: Eamon Mccloud M.D. 12/27/2018 2:[address] ANGIOGRAM OF THE CHEST CLINICAL HISTORY: Respiratory failure. Possible pulmonary embolism. UNRESPONSIVE EPISODE COMPARISON STUDY: Noncontrast CT scan dated 11/13/2018, chest x-ray dated 12/27/2018 TECHNIQUE: Following the IV administration of 119 mL of [id number]-320, CT angiogram of the thorax was performed from the thoracic inlet to the lung bases utilizing the pulmonary embolus protocol. Images are reviewed in the axial, sagittal, and coronal planes. IV contrast was administered without complication. MIP imaging was performed. A dose lowering technique was utilized adhering to the principles of ALARA. CT DOSE: 512.82 mGy.cm FINDINGS: There are persistent mildly enlarged mediastinal and right hilar lymph nodes. There was no evidence of thoracic aortic dilatation. There were no pulmonary artery filling defects to indicate acute pulmonary embolism. There are small bilateral pleural effusions. There are calcified pleural plaques. There is an endotracheal tube 3 cm above the deysi. There is severe pulmonary emphysema. There is extensive left lung volume loss. There are persistent extensive left lung areas of consolidation with bronchiectasis. There are dependent right lower lobe atelectatic changes. There is right lower lobe bronchial wall thickening with areas of mucous plugging. There are chronic right middle lobe atelectatic changes with areas of bronchial wall thickening. There is a new 1 cm irregular right upper lobe pulmonary nod ule. This is likely infectious/inflammatory given that it was not present 6 weeks prior. IMPRESSION: 1. Severe pulmonary emphysema 2. No evidence of acute pulmonary embolism 3. Stable left lung volume loss, bronchiectasis, and parenchymal consolidation 4. Small left pleural effusion 5. Interval development of a small right pleural effusion with right basilar atelectasis 6. Right middle lobe and right lower lobe bronchial wall thickening and mucous plugging 7. Chronic volume loss and fibrotic changes in the right middle lobe 8. New irregular 1 cm right upper lobe nodule, likely infectious/inflammatory 9. Stable mild adenopathy 10. Calcified pleural plaques Electronically signed by: Roosevelt Mejia M.D. 12/27/2018 2:41 PM XR chest 1V portable CLINICAL HISTORY: 78 years-old Female presenting with intubation. TECHNIQUE: Portable semiupright AP view of the chest was obtained. COMPARISON: 12/27/2018. FINDINGS: Endotracheal tube terminates in the mid thoracic proximal 4 cm from the deysi to the deysi is poorly visualized. Atherosclerosis of the aortic arch. Cardiac silhouette shifted to the left as on prior exam. Extensive left lung opacities with suspected left pleural effusion. Volume loss of the left lung. The right lung is hyperinflated with coarsened lung markings and mild vascular prominence. Dense nodular opacity in the periphery of the right mid lung likely present on prior and may represent a granuloma. No pneumothorax. Degenerative changes of the thoracic spine. IMPRESSION: 1. Appropriately positioned endotracheal tube. 2. Extensive left lung infiltrates progressive since August. Possible associated left pleural effusion. Underlying infection not excluded among other possible etiologies. 3. Background chronic lung disease likely emphysema. Electronically signed by: Fam Stauffer M.D. 12/27/2018 1:58 PM ECG Data Attestation: I personally reviewed and interpreted this ECG as follows: Indication: altered mental status Rate (beats per minute): 126 Rhythm: sinus tachycardia Findings: + other (right axis deviation) and + PAC; no ST depression and no ST elevation Blood Pressure Blood Pressure Findings: Elevated blood pressure Blood Pressure Disposition: further management by hospitalist KELLIE Narrative Patient is a 78-year-old female with a history of COPD, pneumonia, diabetes normally on 4 L of oxygen presenting from home via EMS with complaints of weakness and lethargy particularly this morning. Evidently developed yesterday. Was found minimally responsive by EMS with pulse ox in the 70s. Long pulmonary history. reports she was talking a bit earlier this morning and did not have any jeanette complaints. Did not use her CPAP last night and often does not. Did take some of her morning medicines. Patient is responsible to painful stimuli and very minimally to loud verbal stimuli. No focality of the exam. Concern for possible metabolic encephalopathy and possible hypercarbia. Given her history of pneumonia could also be related to infection. Laboratory studies, lactate, culture, EKG, troponin, ABG were obtained. Attempted BiPAP was given for patient multiple hypercarbia. DuoNeb ordered. Patient noted to be tachycardic upon arrival. Given a normal saline bolus. Leukocytosis of 11.6 noted. No evidence of hepatitis. CO2 of 44 consistent with prior chronic elevations. No evidence of significant renal dysfunction. Chest x-ray shows extensive chronic changes of left lung with volume loss and probable consolidation with a trace right pleural effusion. Does not appear significantly volume overloaded. Patient on BiPAP had no significant improvement of her mental status and given her depressed mental status concerns for airway protection. Discussed with who is in agreement with plan for intubation. Given steroids here. Intubation performed as above without acute complication. Propofol for post sedation. Given the extensive findings in the left lung hard to differential the x-ray as well as a CT the head a CT scan with contrast of the chest was completed including PE and other possible intrathoracic pathology. Patient noted to be acidotic but not significantly hypercarbic. Lactate was not significantly elevated. No significant anion gap. CT the head without acute pathology. CT of the chest with severe emphysema no evidence of PE, mucous plugging noted in the right lung with small right and left pleural effusion. Repeat ABG with improving pH but now with worsening hyp ercarbia. Vent settings adjusted. On propfol ggt for sedation. Again received Zosyn for broad-spectrum coverage and discussed with the hospitalist and ICU for admission for further care. Family updated. Impression & Plan Altered mental status, Pneumonia, Acute respiratory failure Critical Care Time Critical Care Time: Yes Total Critical Care Time: 50 I have personally spent 50 minutes of critical care time in the direct management of this patient. This includes bedside care, interpretation of diagnostic studies, and testing, discussion with consultants, patient, and family members, and other required patient management activities. This 50 minutes is in excess of all separately billable procedures. Discharge Plan Visit Data *Final* Discharge Date/Time: 12/27/18 17:05 Chief Complaint: Lethargic ED Provider: Kyle Harrison Discharge Problem: Altered mental status, Pneumonia, Acute respiratory failure Patient Disposition: Admitted As Inpatient Discharge Instructions Interventions: ED Discharge Assessment Last Done: 12/27/18 17:05 Discharge Problem: Altered mental status Qualifiers: Altered mental status type: unspecified Qualified Code(s): R41.82 - Altered mental status, unspecified Pneumonia Qualifiers: Pneumonia type: due to unspecified organism Laterality: unspecified laterality Lung location: unspecified part of lung Qualified Code(s): J18.9 - Pneumonia, unspecified organism Acute respiratory failure Qualifiers: Respiratory failure complication: unspecified whether with hypoxia or hyp ercapnia Qualified Code(s): J96.00 - Acute respiratory failure, unspecified whether with hypoxia or hypercapnia The scribe's documentation has been prepared under my direction and personally reviewed by me in its entirety. I confirm that the note above accurately reflects all work, treatment, procedures, and medical decision making performed by me.
[2018-12-27 19:02] LABS: Phosphorus 0.9 mg/dl (2.5-4.9)
[2018-12-27] MEDS ORDERED: SUCCINYLCHOLINE CHLORIDE 20 MG/ML 10 ML VIAL IV ONE (19:56)
[2018-12-27 20:07] LABS: Neutrophil Body Fluid Man 81 %
--- NOTE | 2018-12-27 20:08 | XRay Report ---
XR chest 1V portable HISTORY: confirm placement of OG tube COMPARISON: Chest 12/27/2018. FINDINGS: The endotracheal tube terminates 2.8 cm from the deysi. Nasogastric tube terminates below the diaphragm. The tip is not included on this study. Volume loss within the left hemithorax, unchang ed. Patchy left lung airspace opacities have slightly improved. A small left pleural effusion persist s.. Emphysema. No pneumothorax. Mild interstitial thickening within the right lung persists. A 1 cm r ight midlung zone nodular density is better appreciated on the recent chest CTA. IMPRESSION: 1. Satisfactory support line placement. 2. Slight improved aeration within the left lung. A small left pleural effusion persists. Electronically signed by: Blair Allen M.D. 12/27/2018 8:04 PM
[2018-12-27] MEDS: ALBUT/IPRATROP 3MG/0.5MG NEB 3 ML VIAL INH SCH ×2 (20:10→22:40)
[2018-12-27] MEDS: CEFEPIME 2,000 MG in SYRINGE 7.5 ML IV SCH (20:12)
[2018-12-27 20:20] LABS: Lymphocyte Body Fluid Man 15 %
[2018-12-27 20:31] LABS: Fluid Mono/Macrophage 4 %
[2018-12-27] MEDS: ETHAMBUTOL HCL 400 MG TAB PO SCH (20:32)
[2018-12-27] MEDS: rifAMPin 300 MG CAPSULE PO SCH (20:32)
[2018-12-27] MEDS: ETHAMBUTOL HCL 100 MG PO SCH (20:34)
[2018-12-27] MEDS: methylPREDNISolone 30 MG in SYRINGE 0 ML IV SCH (20:36)
[2018-12-27] MEDS ORDERED: AMIKACIN SULFATE IV SCH (21:00)
[2018-12-27] MEDS ORDERED: DEXTROSE 5% IV SCH (21:00)
[2018-12-27] MEDS ORDERED: POTASSIUM PHOS 3 MMOL/1 ML INFUSION IV STA (23:27)
[2018-12-27] MEDS ORDERED: POTASSIUM PHOSPHATE 21 MMOL in SODIUM CHLORIDE 0.9% 500 ML IV ONE (23:45)
[2018-12-28 00:20] LABS: BUN Creatinine Ratio 19.1 (10-20); Calcium 8.4 mg/dl (8.5-10.1); Creatinine Clr Calc Pharmacy 43.4 ml/min; Est GFR (African American) 59.6; Est GFR (Non-African American) 51.4; Magnesium 1.1 mg/dl (1.8-2.4); Potassium 3.4 mmol/L (3.5-5.1)
--- NOTE | 2018-12-28 00:29 | Procedure Note ---
Procedure Note Date of Service December 28, 2018 Procedure: Arterial Line Placement Attending: Dr. Cabral APC: Giovani Charles PA-C Indication: Monitoring on Pressors Anesthesia: Lidocaine 1% Emergent consent implied in the setting of worsening tachyarrhythmia, need for frequent lab draws, and need for frequent ABGs. A time-out was completed verifying correct patient, procedure, site, positioning, and implant(s) or special equipment if applicable. Allens test was performed to ensure adequate perfusion. Patients RIGHT wrist was prepped and draped in the usual sterile fashion. Ultrasound guidance was used to aid needle placement. A 20g Arrow arterial line was introduced into the RIGHT Radial artery. Catheter was threaded, and the needle was removed with appropriate blood return. Good waveform was observed. The patient tolerated the procedure well. Confirmation of placement with ultrasound. Blood Loss: Minimal Complications: None Procedural Ultrasound Guidance: Procedure Date: 12/28/2018 Indication: ABGs, Frequent labs, possible need for pressors. Attending: Dr. Cabral APC: Giovani Charles PA-C Artery Identified: YES Line confirmed in Artery with ultrasound: YES Complications: NONE Patient tolerated procedure: WELL Coding CPT Codes Tubes, Drains, and Vasc Access - Tubes, Drains, and Vasc Access: Place Catheter In Artery ([id number])
[2018-12-28 00:31] LABS: Phosphorus 0.7 mg/dl (2.5-4.9)
[2018-12-28] MEDS: dilTIAZem HCL 125 MG in DEXTROSE 5% 100 ML IV SCH ×2 (00:31→07:51)
--- NOTE | 2018-12-28 00:31 | Critical Care Progress Note ---
Date of Service December 28, 2018 Supervising Physician Co-Signing Physician Notes I discussed the patient with Bashir Charles and agree with the documentation. Subjective Patient was noted to be tachycardic with heart rates jumping into the 150s. Patient was assessed at bedside. She remains hemodynamically stable while on sedation. Review of labs demonstrated a phosphorus of 0.9. Orders were placed for repeat labs as well as administration of potassium phosphate replacement. Review patient's medications demonstrates daily Cardizem. She likely did not receive his medication today. Given her lability of blood pressure and current state of intubation, I did elect to proceed with Cardizem drip as well. We will maximize electrolytes. Will place arterial line for close hemodynamic monitoring with administration of Cardizem drip in the intubated/sedated patient. Review of labs demonstrates a magnesium of 1.1. Will replete. We will continue to monitor closely for need for further identities intervention. I have personally spent 45 minutes of critical care time in the direct management of this patient. This is a life/limb threatening event. This includes time spent evaluating patient, direct bedside care, chart review, placing ord ers, interpretation of diagnostic studies, discussion with consultants, patient, and family members, as well as other required patient management activities. This time is exclusive of all separately billable procedures, and teaching time and separate from and in addition to any other critical care service time. Results & Data Vital Signs (Past 12 Hours) Vital Signs Temp Pulse Pulse Resp BP BP Pulse Ox 12/27/18 21:00 113 H 104/62 99 12/27/18 20:30 121 H 111/56 L 100 12/27/18 20:10 116 H 24 100 12/27/18 20:00 37.2 C 88 88 24 111/56 L 111/56 L 99 12/27/18 19:30 94 H 110/58 L 100 12/27/18 19:00 92 H 114/55 L 100 12/27/18 18:35 96 H 91 12/27/18 17:38 37.5 C 91 H 24 151/86 H 100 12/27/18 17:27 102 H 24 99 12/27/18 16:31 98 H 139/88 98 12/27/18 16:20 103 H 107/72 97 12/27/18 16:10 115 H 149/99 H 98 12/27/18 16:00 105 H 114/86 98 12/27/18 15:50 102 H 127/78 98 12/27/18 15:40 102 H 131/87 98 12/27/18 15:30 109 H 147/69 H 97 12/27/18 15:20 94 H 143/102 H 98 12/27/18 15:11 102 H 159/89 H 98 12/27/18 15:00 103 H 157/80 H 98 12/27/18 14:50 108 H 139/72 97 12/27/18 14:49 106 H 154/74 H 97 12/27/18 13:50 110 H 165/99 H 100 12/27/18 13:43 115 H 20 207/122 H 100 12/27/18 13:40 120 H 20 212/126 H 100 12/27/18 13:38 20 12/27/18 13:30 126 H 19 162/85 H 96 12/27/18 13:25 130 H 177/89 H 87 L 12/27/18 13:24 128 H 36 H 177/89 H 87 L 12/27/18 13:02 144 H 26 H 96 12/27/18 13:00 137 H 29 H 99 PG Care Time/CCT Total # of Minutes Spent Total Time Spent with Patient: Total time spent is greater than 50% in coordination of care (as documented) at patient's floor/unit and/or counseling patient: Critical Care Time: Yes Total Critical Care Time: 45
[2018-12-28] MEDS: MAGNESIUM SULFATE / D5W 1 GM/100 ML BAG IV SCH ×2 (00:43→01:49)
[2018-12-28] MEDS ORDERED: ICU SEVERE HYPERGLYCEMIA PROTOCOL ONE (01:30)
[2018-12-28] MEDS ORDERED: PHARMACY GLYCEMIC MGMT CONSULT PRN (02:00)
[2018-12-28] MEDS ORDERED: GLUCOSE 10 TABS/TUBE PO PRN (02:00)
[2018-12-28] MEDS ORDERED: GLUCOSE 40% GEL 15 GM TUBE PO PRN (02:00)
[2018-12-28] MEDS ORDERED: CARBOHYDRATES FOR HYPOGLYCEMIA PO PRN (02:00)
[2018-12-28] MEDS ORDERED: DEXTROSE 50% 50 ML SYRINGE IV PRN (02:00)
[2018-12-28] MEDS ORDERED: GLUCAGON FOR INJ 1 MG VIAL IM PRN (02:00)
[2018-12-28] MEDS: INSULIN REGULAR 250 UNITS in SODIUM CHLORIDE 0.9% 247.5 ML IV SCH (02:05)
[2018-12-28] MEDS ORDERED: NovoLIN-R BOLUS FROM BAG IV ONE (02:10)
[2018-12-28] MEDS ORDERED: INSULIN GLARGINE SOLOSTAR 100 UNITS/ML 3 ML PEN SC ONE (02:30)
[2018-12-28] MEDS: CEFEPIME 2,000 MG in SYRINGE 7.5 ML IV SCH ×3 (02:55→18:18)
[2018-12-28] MEDS: PROPOFOL 1,000 MG/100 ML VIAL IV SCH ×3 (04:38→16:32)
[2018-12-28] MEDS: ALBUT/IPRATROP 3MG/0.5MG NEB 3 ML VIAL INH SCH ×6 (04:56→23:00)
[2018-12-28 04:58] LABS: Albumin Level 2.4 gm/dl (3.4-5.0); BUN Creatinine Ratio 17.1 (10-20); Bilirubin Direct 0.8 mg/dl (0-0.2); Creatinine Clr Calc Pharmacy 33.9 ml/min; Est GFR (African American) 44.3; Est GFR (Non-African American) 38.2; Magnesium 2.1 mg/dl (1.8-2.4); Potassium 3.4 mmol/L (3.5-5.1)
[2018-12-28 05:00] LABS: Eosinophils # (auto) 0.01 K/uL (0-0.5); Eosinophils % (auto) 0.1 %; Hematocrit (blood only) 32.4 % (37-47); Hemoglobin 9.6 g/dL (12.0-16.0); Immature Granulocytes # (auto) 0.03 K/uL (0.00-0.02); Immature Granulocytes % (auto) 0.3 %; Lymphocytes # (auto) 0.35 K/uL (1.2-3.4); Lymphocytes % (auto) 3.1 %; Mean Corpuscular Hemoglobin 28.1 pg (25-34); Mean Corpuscular Hgb Conc 29.6 g/dL (32-36); Mean Corpuscular Volume 94.7 fL (80-100); Mean Platelet Volume 9.8 fL (7.4-10.4); Monocytes # (auto) 0.63 K/uL (0.11-0.59); Monocytes % (auto) 5.7 %; Neutrophils % (auto) 90.8 %; Platelet Count 259 K/uL (130-400); RDW Coefficient of Variation 13.4 % (11.5-14.5); RDW Standard Deviation 46.7 fL (36.4-46.3); Red Blood Count 3.42 M/uL (4.2-5.4); White Blood Count 11.12 K/uL (4.8-10.8)
[2018-12-28 05:08] LABS: Bilirubin,Total 1.5 mg/dl (0.2-1); Phosphorus 1.2 mg/dl (2.5-4.9); Total Protein 6.7 gm/dl (6.4-8.2)
[2018-12-28 05:12] LABS: iSTAT Art Bld Gas pCO2 Correct 35 mmHg (35-46); iSTAT Arterial Blood Gas HCO3 32 meg/L (19-24); iSTAT Arterial Blood Gas pCO2 34 mmHg (35-46); iSTAT Arterial Blood Gas pH 7.58 (7.35-7.45); iSTAT Arterial Blood Gas pO2 59 mmHg (80-95); iSTAT Arterial Blood Gas pO2 C 62; iSTAT Carbon Dioxide 33 mEq/l (24-31); iSTAT Site Art Line
[2018-12-28 05:54] LABS: Estimated Average Glucose 166 mg/dl; Hemoglobin A1C 7.4 % (4.5-5.6)
[2018-12-28] MEDS ORDERED: VANCOMYCIN HCL 1,000 MG in SODIUM CHLORIDE 0.9% 250 ML IV SCH (06:00)
--- NOTE | 2018-12-28 07:30 | XRay Report ---
SINGLE VIEW CHEST CLINICAL HISTORY: Respiratory failure. FINDINGS: An AP, portable, upright chest radiograph is compared to chest x-ray and chest CT dated 12/27/2018. The examination is degraded by portable technique and patient rotation. Endotracheal and ente bassem tubes are unchanged in position. The heart is enlarged noting atherosclerotic calcification of th e thoracic aorta. The pulmonary vasculature is noncongested. Advanced emphysematous change and chroni c interstitial thickening are similar to previous. There is volume loss and postoperative change in t he left lung, with fibrosis at the left lung base. There is a small left pleural effusion. Additional airspace opacities are noted in the left upper lobe and the right lower lung. No pneumothorax is see n. The skeletal structures are osteopenic. The bony thorax is grossly intact. IMPRESSION: 1. Cardiomegaly, advanced emphysema, and postoperative change/volume loss in the left lung are simila r to previous. 2. Chronic fibrotic change at the left lung base is similar to previous and there is a small left ple ural effusion. 3. Airspace opacities in the left upper lung and at the right lung base are unchanged from yesterday. Superimposed pneumonia is not excluded and clinical correlation will be essential. Electronically signed by: John Glass M.D. 12/28/2018 7:29 AM
[2018-12-28] MEDS: INSULIN ASPART 100 UNITS/ML 3 ML PEN SC SCH ×4 (07:52→22:26)
[2018-12-28] MEDS ORDERED: INFLUENZA ADMINISTRATION CHARGE ONE (08:00)
[2018-12-28] MEDS ORDERED: INFLUENZA VACCINE HIGH DOSE 65+ 0.5 ML SYR IM ONE (08:00)
--- NOTE | 2018-12-28 08:00 | Critical Care Progress Note ---
Date of Service December 28, 2018 Assessment & Plan (1) Admitted to intensive care unit: Reason Critically Ill: Acute Hypoxic Hypercarbic Resp Failure in setting of severe COPD requiring mech ventilation NEURO Pt on Mech Vent Sedation with propofol gtt CV HTN- cont diltiazem 300 mg qam Slight trop elevation 0.019 likely 2/2 Type II NE ?Paroxysmal Afib w/ RVR vs A tach- Diltiazem, Heparin PULM H/O Severe COPD- FEV1 of 31% per Pulmonary note from September 2017 Oxygen dependent at home on 4L NC , HS CPAP use Prednisone taper starting at 40 mg started today DuoNeb q4 hours Albuterol q2 hrs PRN Acute hypoxic hypercapnic respiratory failure CTA Chest with severe pulmonary, stable L lung volume loss, bronchiectasis and parenchymal consolidation, small left pleural effusion, small right pleural effusion, right basilar atelectasis, RML and RLL bronchial wall thickening with mucus plugging Now on mech vent after failing BiPAP Bronch today- cx growing gram neg bacilli Cont with Azithromycin, Cefepime. Also Ethambutol/Rifampin/Amikacin for MAC Failed SBT today. Will attempt to extubate again tomorrow ABD/GI H/O fatty liver disease- trend LFT's GI PPx: IV Protonix 40mg po daily /RENAL Amezcua catheter in place- Strict I/O's Replete electrolytes as needed ID DC'd Vancomycin. Cont Azithromycin, Cefepime and Amikacin/Ethambutol/Rifampin for MAC Blood cx NGTD. Sputum cx- gram neg bacilli ID Consult appreciated ENDO H/O DM. A1C 7.27 August 2018 ICU Hyperglycemia Protocol HEME Stable H/H- No concern for acute bleeding Cont trend daily CBC's LINES: PIVx3, Amezcua DVT Prophylaxis: SCD's, Heparin Conditional Code: DNR DISPO: ICU Supervising Physician Co-Signing Physician Notes Dr. Robertson was resident physician during care of patient. I separately evaluated patient for mondragon portions of the history and the exam. I was present during the critical portion of medical decision making, and I discussed the case with the resident. I generally agree with the findings and plan. Patient's respiratory reserve is rather minimal and had very marginal extubation parameters, we will continue mechanical ventilation today. She has had intermittent atrial fibrillation with rapid ventricular response. With the mu ltiple antibiotics we are going to require finding a medication for rate control as well as possibly systemic anticoagulation will be difficult. Patient remains critically ill. Subjective 78 yo F [facility] No reported overnight events. OG tube in place, Amezcua in place. Patient responds to external stimuli. No other acute concerns or complaints. Review of Systems Review of Systems: Unobtainable due to endotracheal tube Physical Exam Constitutional: + mechanically ventilated Eyes: PERRL, conjunctivae normal, anicteric sclerae ENMT: external ear and nose normal, oropharynx normal Respiratory: decreased sounds b/l rhonchi at bases wheezing Cardiovascular: RRR, no murmur, no edema Gastrointestinal (Abdomen): normal bowel sounds, soft, nontender, no hepatosplenomegaly Skin: no rashes, warm and dry Results & Data Vital Signs (Past 12 Hours) Vital Signs Temp Pulse Resp BP Pulse Ox 12/28/18 05:30 139 H 123/60 94 12/28/18 05:02 128 H 20 94 12/28/18 05:00 134 H 110/71 95 12/28/18 04:30 130 H 100/74 94 12/28/18 04:01 37.5 C 132 H 95 12/28/18 03:30 130 H 111/56 L 95 12/28/18 03:00 133 H 112/80 95 12/28/18 02:30 142 H 114/75 94 12/28/18 02:00 134 H 24 113/66 95 12/28/18 01:30 137 H 102/79 97 12/28/18 01:00 129 H 110/56 L 96 12/28/18 00:30 132 H 118/55 L 95 12/28/18 00:00 37.6 C H 163 H 121/56 L 96 12/27/18 23:30 132 H 102/65 97 12/27/18 23:22 124 H 113/56 L 97 12/27/18 23:00 140 H 101/61 97 12/27/18 22:42 118 H 24 100 12/27/18 22:30 130 H 116/68 100 12/27/18 22:00 126 H 107/63 100 12/27/18 21:30 126 H 116/67 99 12/27/18 21:00 113 H 104/62 99 12/27/18 20:30 121 H 111/56 L 100 12/27/18 20:10 116 H 24 100 Laboratory Results Laboratory Results - last 24 hr 12/27/18 12/27/18 12/27/18 14:48 14:48 17:20 WBC RBC Hgb Hct MCV MCH MCHC RDW Std Deviation RDW Coeff of Nataly Plt Count MPV Immature Gran % (Auto) Neut % (Auto) Lymph % (Auto) Edgar % (Auto) Eos % (Auto) Baso % (Auto) Immature Gran # (Auto) Neut # (Auto) Lymph # (Auto) Edgar # (Auto) Eos # (Auto) Baso # (Auto) Sample Site POC pH POC pCO2 POC pO2 POC HCO3 POC Total CO2 POC Base Excess ABG pH (Temp Correct) ABG pCO2 (Temp Corrct POC ABG pO2 at Pt Temp POC ABG O2 Sat [place] Test O2 Delivery Device POC O2 Rate Minute Ventilation Tidal Volume PEEP Sodium Potassium Chloride Carbon Dioxide Anion Gap BUN Creatinine Est Cr Clr Drug Dosing Est GFR ( Amer) Est GFR (Non-Af Amer) BUN/Creatinine Ratio Glucose POC Glucose Estimat Average Glucose Hemoglobin A1c POC Lactic Acid Arter 1.60 H Cancelled Calcium Phosphorus Magnesium Total Bilirubin Direct Bilirubin AST ALT Alkaline Phosphatase Troponin I NT-Pro-B Natriuret Pep Total Protein Albumin Procalcitonin Fluid Neutrophils % Fluid Lymphocytes % Fl Monocyt/Macrophag % Nasal Screen MRSA (PCR) Negative 12/27/18 12/27/18 12/27/18 18:10 18:17 18:17 WBC RBC Hgb Hct MCV MCH MCHC RDW Std Deviation RDW Coeff of Nataly Plt Count MPV Immature Gran % (Auto) Neut % (Auto) Lymph % (Auto) Edgar % (Auto) Eos % (Auto) Baso % (Auto) Immature Gran # (Auto) Neut # (Auto) Lymph # (Auto) Edgar # (Auto) Eos # (Auto) Baso # (Auto) Sample Site POC pH POC pCO2 POC pO2 POC HCO3 POC Total CO2 POC Base Excess ABG pH (Temp Correct) ABG pCO2 (Temp Corrct POC ABG pO2 at Pt Temp POC ABG O2 Sat [place] Test O2 Delivery Device POC O2 Rate Minute Ventilation Tidal Volume PEEP Sodium Potassium Chloride Carbon Dioxide Anion Gap BUN Creatinine Est Cr Clr Drug Dosing Est GFR ( Amer) Est GFR (Non-Af Amer) BUN/Creatinine Ratio Glucose POC Glucose Estimat Average Glucose Hemoglobin A1c POC Lactic Acid Arter Calcium Phosphorus 0.9 L* Magnesium Total Bilirubin Direct Bilirubin AST ALT Alkaline Phosphatase Troponin I NT-Pro-B Natriuret Pep 2261 H Total Protein Albumin Procalcitonin 0.29 Fluid Neutrophils % 81 Fluid Lymphocytes % 15 Fl Monocyt/Macrophag % 4 Nasal Screen MRSA (PCR) 12/27/18 12/27/18 12/28/18 19:55 23:57 01:15 WBC RBC Hgb Hct MCV MCH MCHC RDW Std Deviation RDW Coeff of Nataly Plt Count MPV Immature Gran % (Auto) Neut % (Auto) Lymph % (Auto) Edgar % (Auto) Eos % (Auto) Baso % (Auto) Immature Gran # (Auto) Neut # (Auto) Lymph # (Auto) Edgar # (Auto) Eos # (Auto) Baso # (Auto) Sample Site POC pH POC pCO2 POC pO2 POC HCO3 POC Total CO2 POC Base Excess ABG pH (Temp Correct) ABG pCO2 (Temp Corrct POC ABG pO2 at Pt Temp POC ABG O2 Sat [place] Test O2 Delivery Device POC O2 Rate Minute Ventilation Tidal Volume PEEP Sodium 138 Potassium 3.4 L Chloride 94 L Carbon Dioxide 32 Anion Gap 11.0 BUN 20 H Creatinine 1.04 Est Cr Clr Drug Dosing 43.4 Est GFR ( Amer) 59.6 Est GFR (Non-Af Amer) 51.4 BUN/Creatinine Ratio 19.1 Glucose 230 H POC Glucose 220 H Estimat Average Glucose Hemoglobin A1c POC Lactic Acid Arter Calcium 8.4 L Phosphorus 0.7 L* Magnesium 1.1 L Total Bilirubin Direct Bilirubin AST ALT Alkaline Phosphatase Troponin I 0.035 NT-Pro-B Natriuret Pep Total Protein Albumin Procalcitonin Fluid Neutrophils % Fluid Lymphocytes % Fl Monocyt/Macrophag % Nasal Screen MRSA (PCR) 12/28/18 12/28/18 12/28/18 02:18 03:26 04:05 WBC 11.12 H RBC 3.42 L Hgb 9.6 L Hct 32.4 L MCV 94.7 MCH 28.1 MCHC 29.6 L RDW Std Deviation 46.7 H RDW Coeff of Nataly 13.4 Plt Count 259 MPV 9.8 Immature Gran % (Auto) 0.3 Neut % (Auto) 90.8 Lymph % (Auto) 3.1 Edgar % (Auto) 5.7 Eos % (Auto) 0.1 Baso % (Auto) 0.0 Immature Gran # (Auto) 0.03 H Neut # (Auto) 10.10 H Lymph # (Auto) 0.35 L Edgar # (Auto) 0.63 H Eos # (Auto) 0.01 Baso # (Auto) 0.00 Sample Site POC pH POC pCO2 POC pO2 POC HCO3 POC Total CO2 POC Base Excess ABG pH (Temp Correct) ABG pCO2 (Temp Corrct POC ABG pO2 at Pt Temp POC ABG O2 Sat [place] Test O2 Delivery Device POC O2 Rate Minute Ventilation Tidal Volume PEEP Sodium Potassium Chloride Carbon Dioxide Anion Gap BUN Creatinine Est Cr Clr Drug Dosing Est GFR ( Amer) Est GFR (Non-Af Amer) BUN/Creatinine Ratio Glucose POC Glucose 231 H 238 H Estimat Average Glucose Hemoglobin A1c POC Lactic Acid Arter Calcium Phosphorus Magnesium Total Bilirubin Direct Bilirubin AST ALT Alkaline Phosphatase Troponin I NT-Pro-B Natriuret Pep Total Protein Albumin Procalcitonin Fluid Neutrophils % Fluid Lymphocytes % Fl Monocyt/Macrophag % Nasal Screen MRSA (PCR) 12/28/18 12/28/18 12/28/18 04:05 04:05 04:35 WBC RBC Hgb Hct MCV MCH MCHC RDW Std Deviation RDW Coeff of Nataly Plt Count MPV Immature Gran % (Auto) Neut % (Auto) Lymph % (Auto) Edgar % (Auto) Eos % (Auto) Baso % (Auto) Immature Gran # (Auto) Neut # (Auto) Lymph # (Auto) Edgar # (Auto) Eos # (Auto) Baso # (Auto) Sample Site POC pH POC pCO2 POC pO2 POC HCO3 POC Total CO2 POC Base Excess ABG pH (Temp Correct) ABG pCO2 (Temp Corrct POC ABG pO2 at Pt Temp POC ABG O2 Sat [place] Test O2 Delivery Device POC O2 Rate Minute Ventilation Tidal Volume PEEP Sodium 137 Potassium 3.4 L Chloride 94 L Carbon Dioxide 32 Anion Gap 11.0 BUN 23 H Creatinine 1.33 H Est Cr Clr Drug Dosing 33.9 Est GFR ( Amer) 44.3 Est GFR (Non-Af Amer) 38.2 BUN/Creatinine Ratio 17.1 Glucose 203 H POC Glucose 200 H Estimat Average Glucose 166 Hemoglobin A1c 7.4 H POC Lactic Acid Arter Calcium 8.0 L Phosphorus 1.2 L* Magnesium 2.1 Total Bilirubin 1.5 H D Direct Bilirubin 0.8 H AST 15 ALT 22 Alkaline Phosphatase 148 H Troponin I NT-Pro-B Natriuret Pep Total Protein 6.7 Albumin 2.4 L Procalcitonin Fluid Neutrophils % Fluid Lymphocytes % Fl Monocyt/Macrophag % Nasal Screen MRSA (PCR) 12/28/18 12/28/18 12/28/18 04:58 05:46 06:43 WBC RBC Hgb Hct MCV MCH MCHC RDW Std Deviation RDW Coeff of Nataly Plt Count MPV Immature Gran % (Auto) Neut % (Auto) Lymph % (Auto) Edgar % (Auto) Eos % (Auto) Baso % (Auto) Immature Gran # (Auto) Neut # (Auto) Lymph # (Auto) Edgar # (Auto) Eos # (Auto) Baso # (Auto) Sample Site Art Line POC pH 7.58 H* POC pCO2 34 L POC pO2 59 L POC HCO3 32 H POC Total CO2 33 H POC Base Excess 10.0 H ABG pH (Temp Correct) 7.570 H* ABG pCO2 (Temp Corrct 35 POC ABG pO2 at Pt Temp 62 POC ABG O2 Sat 94.0 [place] Test NA O2 Delivery Device Ventilator POC O2 Rate 24 Minute Ventilation 9 Tidal Volume 400 PEEP 5 Sodium Potassium Chloride Carbon Dioxide Anion Gap BUN Creatinine Est Cr Clr Drug Dosing Est GFR ( Amer) Est GFR (Non-Af Amer) BUN/Creatinine Ratio Glucose POC Glucose 197 H 202 H Estimat Average Glucose Hemoglobin A1c POC Lactic Acid Arter Calcium Phosphorus Magnesium Total Bilirubin Direct Bilirubin AST ALT Alkaline Phosphatase Troponin I NT-Pro-B Natriuret Pep Total Protein Albumin Procalcitonin Fluid Neutrophils % Fluid Lymphocytes % Fl Monocyt/Macrophag % Nasal Screen MRSA (PCR) 12/28/18 12/28/18 12/28/18 07:39 08:39 09:42 WBC RBC Hgb Hct MCV MCH MCHC RDW Std Deviation RDW Coeff of Nataly Plt Count MPV Immature Gran % (Auto) Neut % (Auto) Lymph % (Auto) Edgar % (Auto) Eos % (Auto) Baso % (Auto) Immature Gran # (Auto) Neut # (Auto) Lymph # (Auto) Edgar # (Auto) Eos # (Auto) Baso # (Auto) Sample Site POC pH POC pCO2 POC pO2 POC HCO3 POC Total CO2 POC Base Excess ABG pH (Temp Correct) ABG pCO2 (Temp Corrct POC ABG pO2 at Pt Temp POC ABG O2 Sat [place] Test O2 Delivery Device POC O2 Rate Minute Ventilation Tidal Volume PEEP Sodium Potassium Chloride Carbon Dioxide Anion Gap BUN Creatinine Est Cr Clr Drug Dosing Est GFR ( Amer) Est GFR (Non-Af Amer) BUN/Creatinine Ratio Glucose POC Glucose 173 H 143 H 124 H Estimat Average Glucose Hemoglobin A1c POC Lactic Acid Arter Calcium Phosphorus Magnesium Total Bilirubin Direct Bilirubin AST ALT Alkaline Phosphatase Troponin I NT-Pro-B Natriuret Pep Total Protein Albumin Procalcitonin Fluid Neutrophils % Fluid Lymphocytes % Fl Monocyt/Macrophag % Nasal Screen MRSA (PCR) 12/28/18 12/28/18 12/28/18 11:04 11:38 12:46 WBC RBC Hgb Hct MCV MCH MCHC RDW Std Deviation RDW Coeff of Nataly Plt Count MPV Immature Gran % (Auto) Neut % (Auto) Lymph % (Auto) Edgar % (Auto) Eos % (Auto) Baso % (Auto) Immature Gran # (Auto) Neut # (Auto) Lymph # (Auto) Edgar # (Auto) Eos # (Auto) Baso # (Auto) Sample Site POC pH POC pCO2 POC pO2 POC HCO3 POC Total CO2 POC Base Excess ABG pH (Temp Correct) ABG pCO2 (Temp Corrct POC ABG pO2 at Pt Temp POC ABG O2 Sat [place] Test O2 Delivery Device POC O2 Rate Minute Ventilation Tidal Volume PEEP Sodium Potassium Chloride Carbon Dioxide Anion Gap BUN Creatinine Est Cr Clr Drug Dosing Est GFR ( Amer) Est GFR (Non-Af Amer) BUN/Creatinine Ratio Glucose POC Glucose 109 H 105 H 106 H Estimat Average Glucose Hemoglobin A1c POC Lactic Acid Arter Calcium Phosphorus Magnesium Total Bilirubin Direct Bilirubin AST ALT Alkaline Phosphatase Troponin I NT-Pro-B Natriuret Pep Total Protein Albumin Procalcitonin Fluid Neutrophils % Fluid Lymphocytes % Fl Monocyt/Macrophag % Nasal Screen MRSA (PCR) 12/28/18 12/28/18 12/28/18 13:59 14:23 15:29 WBC RBC Hgb Hct MCV MCH MCHC RDW Std Deviation RDW Coeff of Nataly Plt Count MPV Immature Gran % (Auto) Neut % (Auto) Lymph % (Auto) Edgar % (Auto) Eos % (Auto) Baso % (Auto) Immature Gran # (Auto) Neut # (Auto) Lymph # (Auto) Edgar # (Auto) Eos # (Auto) Baso # (Auto) Sample Site POC pH POC pCO2 POC pO2 POC HCO3 POC Total CO2 POC Base Excess ABG pH (Temp Correct) ABG pCO2 (Temp Corrct POC ABG pO2 at Pt Temp POC ABG O2 Sat [place] Test O2 Delivery Device POC O2 Rate Minute Ventilation Tidal Volume PEEP Sodium Potassium Chloride Carbon Dioxide Anion Gap BUN Creatinine Est Cr Clr Drug Dosing Est GFR ( Amer) Est GFR (Non-Af Amer) BUN/Creatinine Ratio Glucose POC Glucose 113 H 116 H 106 H Estimat Average Glucose Hemoglobin A1c POC Lactic Acid Arter Calcium Phosphorus Magnesium Total Bilirubin Direct Bilirubin AST ALT Alkaline Phosphatase Troponin I NT-Pro-B Natriuret Pep Total Protein Albumin Procalcitonin Fluid Neutrophils % Fluid Lymphocytes % Fl Monocyt/Macrophag % Nasal Screen MRSA (PCR) 12/28/18 12/28/18 12/28/18 16:51 17:40 18:23 WBC RBC Hgb Hct MCV MCH MCHC RDW Std Deviation RDW Coeff of Nataly Plt Count MPV Immature Gran % (Auto) Neut % (Auto) Lymph % (Auto) Edgar % (Auto) Eos % (Auto) Baso % (Auto) Immature Gran # (Auto) Neut # (Auto) Lymph # (Auto) Edgar # (Auto) Eos # (Auto) Baso # (Auto) Sample Site POC pH POC pCO2 POC pO2 POC HCO3 POC Total CO2 POC Base Excess ABG pH (Temp Correct) ABG pCO2 (Temp Corrct POC ABG pO2 at Pt Temp POC ABG O2 Sat [place] Test O2 Delivery Device POC O2 Rate Minute Ventilation Tidal Volume PEEP Sodium Potassium Chloride Carbon Dioxide Anion Gap BUN Creatinine Est Cr Clr Drug Dosing Est GFR ( Amer) Est GFR (Non-Af Amer) BUN/Creatinine Ratio Glucose POC Glucose 110 H 118 H 120 H Estimat Average Glucose Hemoglobin A1c POC Lactic Acid Arter Calcium Phosphorus Magnesium Total Bilirubin Direct Bilirubin AST ALT Alkaline Phosphatase Troponin I NT-Pro-B Natriuret Pep Total Protein Albumin Procalcitonin Fluid Neutrophils % Fluid Lymphocytes % Fl Monocyt/Macrophag % Nasal Screen MRSA (PCR) Medications Administered Current Inpatient Medications Albuterol (Duoneb) 3 ml INH Q4R KEV Stop: 01/26/19 18:59 Last Admin: 12/28/18 17:32 Dose: Not Given Documented by: Albuterol (Ventolin 0.5% 2.5mg/0.5ml) 2.5 mg NEB Q2H PRN PRN Reason: SOB/Wheeze Stop: 01/26/19 17:43 Amikacin Sulfate (Amikin) 250 mg INH Q48H [facility] Stop: 01/28/19 19:29 Dextrose (Dextrose 50%) 25 - 50 ml IV UD PRN; Protocol PRN Reason: Hypoglycemia Protocol Stop: 01/27/19 01:59 Diltiazem HCl (Cardizem) 90 mg PO Q6 KEV Stop: 01/27/19 11:59 Last Admin: 12/28/18 17:03 Dose: 90 mg Documented by: Ethambutol HCl (Myambutol) 800 mg PO HS KEV Stop: 01/26/19 20:59 Last Admin: 12/27/18 20:32 Dose: 800 mg Documented by: Ethambutol HCl (Myambutol) 200 mg PO HS [facility] Stop: 01/26/19 20:59 Last Admin: 12/27/18 20:34 Dose: 200 mg Documented by: Fentanyl Citrate (Fentanyl Citrate) 50 mcg IV Q2H PRN PRN Reason: Pain Stop: 01/10/19 17:43 Last Admin: 12/27/18 21:47 Dose: 50 mcg Documented by: Glucagon (Glucagen) 1 mg IM UD PRN; Protocol PRN Reason: Hypoglycemia Protocol Stop: 01/27/19 01:59 Glucose (Glucose 40%) 15 - 30 gm PO UD PRN; Protocol PRN Reason: Hypoglycemia Protocol Stop: 01/27/19 01:59 Glucose (Dex4 Glucose) 4 - 8 tabs PO UD PRN; Protocol PRN Reason: Hypoglycemia Protocol Stop: 01/27/19 01:59 Heparin Sodium (Porcine) (Heparin Sodium (Porcine)) 5,000 units SQ BID [facility] Stop: 01/28/19 08:59 Propofol (Diprivan) 1,000 mg in 100 mls @ 12.276 mls/hr IV .Q8H9M KEV; Protocol Stop: 12/30/18 13:29 Last Admin: 12/28/18 16:32 Dose: 30 mcg/kg/min, 12.3 mls/hr Documented by: Azithromycin 500 mg/ Dextrose 255 mls @ 127.5 mls/hr IV Q24H [facility] Stop: 01/03/19 15:59 Last Infusion: 12/28/18 18:12 Dose: Infused Documented by: Cefepime HCl 2,000 mg/ Syringe 20 mls @ 5 mls/min IV Q8H [facility] Stop: 01/03/19 18:59 Last Admin: 12/28/18 18:18 Dose: 5 mls/min Documented by: Diltiazem HCl 125 mg/ Dextrose 125 mls @ 10 mls/hr IV .[id number] [facility]; Protocol Stop: 01/27/19 00:14 Last Titration: 12/28/18 16:07 Dose: Infused Documented by: Insulin Human Regular 250 (units/ Sodium Chloride) 250 mls @ 1.4 mls/hr IV .Q24H [facility]; Protocol Stop: 01/27/19 01:59 Last Titration: 12/28/18 15:35 Dose: 1.4 units/hr, 1.4 mls/hr Documented by: Insulin Aspart (Novolog Flexpen) 0 units SC ACHS [facility] Stop: 01/27/19 07:29 Last Admin: 12/28/18 16:11 Dose: Not Given Documented by: Lansoprazole (Prevacid) 30 mg NG QAM [facility]; Protocol Stop: 01/27/19 13:59 Last Admin: 12/28/18 14:10 Dose: 30 mg Documented by: Magnesium Oxide (Mag-Ox) 400 mg PO HS [facility] Stop: 01/27/19 20:59 Miscellaneous (Carbohydrates For Hypoglycemia) 15 - 30 gm PO PRN PRN PRN Reason: Hypoglycemia Treatment Stop: 01/27/19 01:59 Miscellaneous Information (Cefepime Consult Active) 1 ea N/A UD PRN PRN Reason: Consult Stop: 01/26/19 16:02 Miscellaneous Information (Consult Glycemic Management Pharmacy) 1 ea N/A UD PRN PRN Reason: Consult Stop: 01/27/19 01:59 Nutritional Formula (Peptamen Intense Vhp 1.0 Elias) 1,000 ml [place] [facility] [place] Protocol Stop: 01/27/19 16:14 Last Admin: 12/28/18 17:23 Dose: 1,000 ml Documented by: Prednisone (Prednisone) 40 mg NG DAILY@0900 [facility]; Taper Stop: 01/09/19 08:59 Rifampin (Rifampin) 600 mg PO [facility] Stop: 10/16/19 20:59 Last Admin: 12/27/18 20:32 Dose: 600 mg Documented by: PG Care Time/CCT Total # of Minutes Spent Total Time Spent with Patient: Total time spent is greater than 50% in coordination of care (as documented) at patient's floor/unit and/or counseling patient: Critical Care Time: Yes Total Critical Care Time: 60 Resident Activity Tracking Resident Involvement: Resident Care Provided Care Provided: Adult Hospital Medicine
[2018-12-28] MEDS: methylPREDNISolone 30 MG in SYRINGE 0 ML IV SCH (08:11)
[2018-12-28] MEDS ORDERED: PANTOprazole 40 MG TAB PO SCH (09:00)
[2018-12-28] MEDS ORDERED: dilTIAZem HCL 300 MG CAPCR PO SCH (09:00)
[2018-12-28] MEDS ORDERED: ENOXAPARIN INJ 40 MG/0.4 ML SYR SQ SCH (09:00)
--- NOTE | 2018-12-28 09:16 | Family Medicine Progress Note ---
Date of Service December 28, 2018 Assessment & Plan (1) Admitted to intensive care unit: Elderly female with past medical history of severe COPD on 4 L at home presented to the emergency department with somnolescent's and altered mental status and found to have a pulse ox of 73%, initially placed on BiPAP with good response however subsequently deteriorated and was intubated with transfer to the ICU. #COPD exacerbation Likely secondary to pneumonia, cultures negative to date. Patient status post bronchoscopy we will follow-up results -Solu-Medrol 30 mg IV 3 times daily, duo nebs every 4 hours, albuterol every 2 hours as needed -Follow-up [facility] cultures -Infectious disease consulted -Continue azithromycin, amikacin, ethambutol, rifampin -Monitor renal function while on amikacin #Acute hypoxic hypercapnic respiratory failure On mechanical ventilation after failing BiPAP -Management as above #Hypertension -Continue diltiazem 300 mg #Troponins Likely elevated secondary to demand ischemia #History of fatty liver disease -Trend LFTs #Diabetes type 2 Last A1c 7.27 August 2018 ICU hyperglycemia protocol FENa: OG tube Code Status: DNR/DNI DVT PPX: Lovenox subcu PT/OT: TBD Dispo: ICU Carlo Peña MD PGY 2, [facility] This chart was completed utilizing [employer] dictation voice recognition software. Grammatical errors, random word insertions, pronoun errors, and in complete sentences are an occasional consequence of the system. Any questions or con cerns about the content, text, or information contained within the body of this dictation should be addressed directly to the physician for clarification. Supervising Physician Co-Signing Physician Notes Patient seen and examined independently of PGY-2 Dr. Peña. Agree with history, exam findings, assessment and plan of care as outlined. In brief, Ms Mcclendon is a 78 year old female with hx of severe COPD (O2 dependent), fatty liver, DM admitted for acute on chronic hypercapneic respiratory failure. She is intubated. This is the first time she has been intubated for respiratory issues. She is awake and able to nod appropriately to questions. Currently in the ICU. Coarse breath sounds throughout. 1. acute hypoxic, hypercapneic respiratory failure in the setting of chronic resp failure. ICU care. Steroids, azithro, cefepime, amikacin, ethambutol, rifampin per ID and critical care team. Awaiting bronch cultures. Chronically 10mg pred. 2. tachycardia. cardizem gtt. 3. troponin elevation. 0.019-->0.035. Likely demand ischemia. 4. DM. NPO right now. glucose checks per ICU protocol. Dispo: continue ICU care. Subjective Patient laying in bed intubated in the ICU with her granddaughter is at her bedside. Her granddaughter is reported similar history is that reported in the admission HPI. Patient currently intubated with OG tube in place, Amezcua in place producing dark urine. Patient responds to external stimuli. No acute concerns are present, all questions answered Physical Exam Physical Exam: General: Elderly female intubated and mechanically ventilated HEENT: Normocephalic atraumatic Neck: Normal visual inspection Cardiac: Tachycardia, exam limited secondary to noise from mechanical ventilation, I did not appreciate significant murmurs rubs or gallops. Respiratory:Exam limited secondary to mechanical ventilation GI: Bowel sounds present, soft, nontender, nondistended MSK: Response to external stimuli Neuro: Sedated Results & Data Vital Signs (Past 12 Hours) Vital Signs Temp Pulse Resp BP Pulse Ox 12/28/18 08:00 114 H 12/28/18 07:49 130 H 20 95 12/28/18 05:30 139 H 123/60 94 12/28/18 05:02 128 H 20 94 12/28/18 05:00 134 H 110/71 95 12/28/18 04:30 130 H 100/74 94 12/28/18 04:01 37.5 C 132 H 95 12/28/18 03:30 130 H 111/56 L 95 12/28/18 03:00 133 H 112/80 95 12/28/18 02:30 142 H 114/75 94 12/28/18 02:00 134 H 24 113/66 95 12/28/18 01:30 137 H 102/79 97 12/28/18 01:00 129 H 110/56 L 96 12/28/18 00:30 132 H 118/55 L 95 12/28/18 00:00 37.6 C H 163 H 121/56 L 96 12/27/18 23:30 132 H 102/65 97 12/27/18 23:22 124 H 113/56 L 97 12/27/18 23:00 140 H 101/61 97 12/27/18 22:42 118 H 24 100 12/27/18 22:30 130 H 116/68 100 12/27/18 22:00 126 H 107/63 100 12/27/18 21:30 126 H 116/67 99 Laboratory Results 12/28/18 12/28/18 12/28/18 Range/Units 09:42 08:39 07:39 WBC (4.8-10.8) K/uL RBC (4.2-5.4) M/uL Hgb (12.0-16.0) g/dL Hct (37-47) % MCV (80-100) fL MCH (25-34) pg MCHC (32-36) g/dL RDW Std Deviation (36.4-46.3) fL RDW Coeff of Nataly (11.5-14.5) % Plt Count (130-400) K/uL MPV (7.4-10.4) fL Immature Gran % (Auto) % Neut % (Auto) % Lymph % (Auto) % [place] % (Auto) % Eos % (Auto) % Baso % (Auto) % Immature Gran # (Auto) (0.00-0.02) K/uL Neut # (Auto) (1.4-6.5) K/uL Lymph # (Auto) (1.2-3.4) K/uL [place] # (Auto) (0.11-0.59) K/uL Eos # (Auto) (0-0.5) K/uL Baso # (Auto) (0-0.2) K/uL Sample Site POC pH (7.35-7.45) POC pCO2 (35-46) mmHg POC pO2 (80-95) mmHg POC HCO3 (19-24) kalyan/L POC Total CO2 (24-31) mEq/l POC Base Excess (-9-1.8) kalyan/L ABG pH (Temp Correct) (7.35-7.45) ABG pCO2 (Temp Corrct (35-46) mmHg POC ABG pO2 at Pt Temp POC ABG O2 Sat (90-95) % Marques Test O2 Delivery Device POC O2 Rate Minute Ventilation Tidal Volume PEEP Sodium (136-145) mmol/L Potassium (3.5-5.1) mmol/L Chloride (98-107) mmol/L Carbon Dioxide (21-32) mmol/L Anion Gap (3-11) BUN (7-18) mg/dl Creatinine (0.6-1.2) mg/dl Est Cr Clr Drug Dosing ml/min Est GFR ( Amer) Est GFR (Non-Af Amer) BUN/Creatinine Ratio (10-20) Glucose (70-99) mg/dl POC Glucose 124 H 143 H 173 H (70-99) Estimat Average Glucose mg/dl Hemoglobin A1c (4.5-5.6) % POC Lactic Acid Arter POC Lactic Acid Osvaldo (0.90-1.70) mmol/L Calcium (8.5-10.1) mg/dl Phosphorus (2.5-4.9) mg/dl Magnesium (1.8-2.4) mg/dl Total Bilirubin (0.2-1) mg/dl Direct Bilirubin (0-0.2) mg/dl AST (15-37) U/L ALT (12-78) U/L Alkaline Phosphatase (45-117) U/L Ammonia (11-32) umol/L Troponin I (0-0.045) ng/ml NT-Pro-B Natriuret Pep (0-1800) pg/ml Total Protein (6.4-8.2) gm/dl Albumin (3.4-5.0) gm/dl Procalcitonin (0-0.5) ng/ml Urine Color Urine Appearance (Clear) Urine pH (4.5-7.5) Ur Specific [place] (1.000-1.030) Urine Protein (Negative) Urine Glucose (UA) (Negative) Urine Ketones (Negative) Urine Blood (Negative) Urine Nitrite (Negative) Urine Bilirubin (Negative) Urine Urobilinogen (Negative) Ur Leukocyte Esterase (Negative) Urine WBC (Auto) (0-5) /hpf Urine RBC (Auto) (0-4) /hpf U Hyaline Cast (Auto) (0-5) /lpf U Epithel Cells (Auto) (0-5) /lpf Urine Bacteria (Auto) (Negative) Granular Casts (0) /lpf Fluid Neutrophils % % Fluid Lymphocytes % % Fl Monocyt/Macrophag % % Nasal Screen MRSA (PCR) (Negative) 10/10/19 10/10/19 10/10/19 Range/Units 06:43 05:46 04:58 WBC (4.8-10.8) K/uL RBC (4.2-5.4) M/uL Hgb (12.0-16.0) g/dL Hct (37-47) % MCV (80-100) fL MCH (25-34) pg MCHC (32-36) g/dL RDW Std Deviation (36.4-46.3) fL RDW Coeff of Nataly (11.5-14.5) % Plt Count (130-400) K/uL MPV (7.4-10.4) fL Immature Gran % (Auto) % Neut % (Auto) % Lymph % (Auto) % [place] % (Auto) % Eos % (Auto) % Baso % (Auto) % Immature Gran # (Auto) (0.00-0.02) K/uL Neut # (Auto) (1.4-6.5) K/uL Lymph # (Auto) (1.2-3.4) K/uL [place] # (Auto) (0.11-0.59) K/uL Eos # (Auto) (0-0.5) K/uL Baso # (Auto) (0-0.2) K/uL Sample Site Art Line POC pH 7.58 H* (7.35-7.45) POC pCO2 34 L (35-46) mmHg POC pO2 59 L (80-95) mmHg POC HCO3 32 H (19-24) kalyan/L POC Total CO2 33 H (24-31) mEq/l POC Base Excess 10.0 H (-9-1.8) kalyan/L ABG pH (Temp Correct) 7.570 H* (7.35-7.45) ABG pCO2 (Temp Corrct 35 (35-46) mmHg POC ABG pO2 at Pt Temp 62 POC ABG O2 Sat 94.0 (90-95) % Marques Test NA O2 Delivery Device Ventilator POC O2 Rate 24 Minute Ventilation 9 Tidal Volume 400 PEEP 5 Sodium (136-145) mmol/L Potassium (3.5-5.1) mmol/L Chloride (98-107) mmol/L Carbon Dioxide (21-32) mmol/L Anion Gap (3-11) BUN (7-18) mg/dl Creatinine (0.6-1.2) mg/dl Est Cr Clr Drug Dosing ml/min Est GFR ( Amer) Est GFR (Non-Af Amer) BUN/Creatinine Ratio (10-20) Glucose (70-99) mg/dl POC Glucose 202 H 197 H (70-99) Estimat Average Glucose mg/dl Hemoglobin A1c (4.5-5.6) % POC Lactic Acid Arter POC Lactic Acid Osvaldo (0.90-1.70) mmol/L Calcium (8.5-10.1) mg/dl Phosphorus (2.5-4.9) mg/dl Magnesium (1.8-2.4) mg/dl Total Bilirubin (0.2-1) mg/dl Direct Bilirubin (0-0.2) mg/dl AST (15-37) U/L ALT (12-78) U/L Alkaline Phosphatase (45-117) U/L Ammonia (11-32) umol/L Troponin I (0-0.045) ng/ml NT-Pro-B Natriuret Pep (0-1800) pg/ml Total Protein (6.4-8.2) gm/dl Albumin (3.4-5.0) gm/dl Procalcitonin (0-0.5) ng/ml Urine Color Urine Appearance (Clear) Urine pH (4.5-7.5) Ur Specific [place] (1.000-1.030) Urine Protein (Negative) Urine Glucose (UA) (Negative) Urine Ketones (Negative) Urine Blood (Negative) Urine Nitrite (Negative) Urine Bilirubin (Negative) Urine Urobilinogen (Negative) Ur Leukocyte Esterase (Negative) Urine WBC (Auto) (0-5) /hpf Urine RBC (Auto) (0-4) /hpf U Hyaline Cast (Auto) (0-5) /lpf U Epithel Cells (Auto) (0-5) /lpf Urine Bacteria (Auto) (Negative) Granular Casts (0) /lpf Fluid Neutrophils % % Fluid Lymphocytes % % Fl Monocyt/Macrophag % % Nasal Screen MRSA (PCR) (Negative) 12/28/18 12/28/18 12/28/18 Range/Units 04:35 04:05 04:05 WBC (4.8-10.8) K/uL RBC (4.2-5.4) M/uL Hgb (12.0-16.0) g/dL Hct (37-47) % MCV (80-100) fL MCH (25-34) pg MCHC (32-36) g/dL RDW Std Deviation (36.4-46.3) fL RDW Coeff of Nataly (11.5-14.5) % Plt Count (130-400) K/uL MPV (7.4-10.4) fL Immature Gran % (Auto) % Neut % (Auto) % Lymph % (Auto) % [place] % (Auto) % Eos % (Auto) % Baso % (Auto) % Immature Gran # (Auto) (0.00-0.02) K/uL Neut # (Auto) (1.4-6.5) K/uL Lymph # (Auto) (1.2-3.4) K/uL [place] # (Auto) (0.11-0.59) K/uL Eos # (Auto) (0-0.5) K/uL Baso # (Auto) (0-0.2) K/uL Sample Site POC pH (7.35-7.45) POC pCO2 (35-46) mmHg POC pO2 (80-95) mmHg POC HCO3 (19-24) kalyan/L POC Total CO2 (24-31) mEq/l POC Base Excess (-9-1.8) kalyan/L ABG pH (Temp Correct) (7.35-7.45) ABG pCO2 (Temp Corrct (35-46) mmHg POC ABG pO2 at Pt Temp POC ABG O2 Sat (90-95) % Marques Test O2 Delivery Device POC O2 Rate Minute Ventilation Tidal Volume PEEP Sodium 137 (136-145) mmol/L Potassium 3.4 L (3.5-5.1) mmol/L Chloride 94 L (98-107) mmol/L Carbon Dioxide 32 (21-32) mmol/L Anion Gap 11.0 (3-11) BUN 23 H (7-18) mg/dl Creatinine 1.33 H (0.6-1.2) mg/dl Est Cr Clr Drug Dosing 33.9 ml/min Est GFR ( Amer) 44.3 Est GFR (Non-Af Amer) 38.2 BUN/Creatinine Ratio 17.1 (10-20) Glucose 203 H (70-99) mg/dl POC Glucose 200 H (70-99) Estimat Average Glucose 166 mg/dl Hemoglobin A1c 7.4 H (4.5-5.6) % POC Lactic Acid Arter POC Lactic Acid Osvaldo (0.90-1.70) mmol/L Calcium 8.0 L (8.5-10.1) mg/dl Phosphorus 1.2 L* (2.5-4.9) mg/dl Magnesium 2.1 (1.8-2.4) mg/dl Total Bilirubin 1.5 H D (0.2-1) mg/dl Direct Bilirubin 0.8 H (0-0.2) mg/dl AST 15 (15-37) U/L ALT 22 (12-78) U/L Alkaline Phosphatase 148 H (45-117) U/L Ammonia (11-32) umol/L Troponin I (0-0.045) ng/ml NT-Pro-B Natriuret Pep (0-1800) pg/ml Total Protein 6.7 (6.4-8.2) gm/dl Albumin 2.4 L (3.4-5.0) gm/dl Procalcitonin (0-0.5) ng/ml Urine Color Urine Appearance (Clear) Urine pH (4.5-7.5) Ur Specific [place] (1.000-1.030) Urine Protein (Negative) Urine Glucose (UA) (Negative) Urine Ketones (Negative) Urine Blood (Negative) Urine Nitrite (Negative) Urine Bilirubin (Negative) Urine Urobilinogen (Negative) Ur Leukocyte Esterase (Negative) Urine WBC (Auto) (0-5) /hpf Urine RBC (Auto) (0-4) /hpf U Hyaline Cast (Auto) (0-5) /lpf U Epithel Cells (Auto) (0-5) /lpf Urine Bacteria (Auto) (Negative) Granular Casts (0) /lpf Fluid Neutrophils % % Fluid Lymphocytes % % Fl Monocyt/Macrophag % % Nasal Screen MRSA (PCR) (Negative) 12/28/18 12/28/18 12/28/18 Range/Units 04:05 03:26 02:18 WBC 11.12 H (4.8-10.8) K/uL RBC 3.42 L (4.2-5.4) M/uL Hgb 9.6 L (12.0-16.0) g/dL Hct 32.4 L (37-47) % MCV 94.7 (80-100) fL MCH 28.1 (25-34) pg MCHC 29.6 L (32-36) g/dL RDW Std Deviation 46.7 H (36.4-46.3) fL RDW Coeff of Nataly 13.4 (11.5-14.5) % Plt Count 259 (130-400) K/uL MPV 9.8 (7.4-10.4) fL Immature Gran % (Auto) 0.3 % Neut % (Auto) 90.8 % Lymph % (Auto) 3.1 % [place] % (Auto) 5.7 % Eos % (Auto) 0.1 % Baso % (Auto) 0.0 % Immature Gran # (Auto) 0.03 H (0.00-0.02) K/uL Neut # (Auto) 10.10 H (1.4-6.5) K/uL Lymph # (Auto) 0.35 L (1.2-3.4) K/uL [place] # (Auto) 0.63 H (0.11-0.59) K/uL Eos # (Auto) 0.01 (0-0.5) K/uL Baso # (Auto) 0.00 (0-0.2) K/uL Sample Site POC pH (7.35-7.45) POC pCO2 (35-46) mmHg POC pO2 (80-95) mmHg POC HCO3 (19-24) kalyan/L POC Total CO2 (24-31) mEq/l POC Base Excess (-9-1.8) kalyan/L ABG pH (Temp Correct) (7.35-7.45) ABG pCO2 (Temp Corrct (35-46) mmHg POC ABG pO2 at Pt Temp POC ABG O2 Sat (90-95) % Marques Test O2 Delivery Device POC O2 Rate Minute Ventilation Tidal Volume PEEP Sodium (136-145) mmol/L Potassium (3.5-5.1) mmol/L Chloride (98-107) mmol/L Carbon Dioxide (21-32) mmol/L Anion Gap (3-11) BUN (7-18) mg/dl Creatinine (0.6-1.2) mg/dl Est Cr Clr Drug Dosing ml/min Est GFR ( Amer) Est GFR (Non-Af Amer) BUN/Creatinine Ratio (10-20) Glucose (70-99) mg/dl POC Glucose 238 H 231 H (70-99) Estimat Average Glucose mg/dl Hemoglobin A1c (4.5-5.6) % POC Lactic Acid Arter POC Lactic Acid Osvaldo (0.90-1.70) mmol/L Calcium (8.5-10.1) mg/dl Phosphorus (2.5-4.9) mg/dl Magnesium (1.8-2.4) mg/dl Total Bilirubin (0.2-1) mg/dl Direct Bilirubin (0-0.2) mg/dl AST (15-37) U/L ALT (12-78) U/L Alkaline Phosphatase (45-117) U/L Ammonia (11-32) umol/L Troponin I (0-0.045) ng/ml NT-Pro-B Natriuret Pep (0-1800) pg/ml Total Protein (6.4-8.2) gm/dl Albumin (3.4-5.0) gm/dl Procalcitonin (0-0.5) ng/ml Urine Color Urine Appearance (Clear) Urine pH (4.5-7.5) Ur Specific [place] (1.000-1.030) Urine Protein (Negative) Urine Glucose (UA) (Negative) Urine Ketones (Negative) Urine Blood (Negative) Urine Nitrite (Negative) Urine Bilirubin (Negative) Urine Urobilinogen (Negative) Ur Leukocyte Esterase (Negative) Urine WBC (Auto) (0-5) /hpf Urine RBC (Auto) (0-4) /hpf U Hyaline Cast (Auto) (0-5) /lpf U Epithel Cells (Auto) (0-5) /lpf Urine Bacteria (Auto) (Negative) Granular Casts (0) /lpf Fluid Neutrophils % % Fluid Lymphocytes % % Fl Monocyt/Macrophag % % Nasal Screen MRSA (PCR) (Negative) 12/28/18 12/27/18 12/27/18 Range/Units 01:15 23:57 19:55 WBC (4.8-10.8) K/uL RBC (4.2-5.4) M/uL Hgb (12.0-16.0) g/dL Hct (37-47) % MCV (80-100) fL MCH (25-34) pg MCHC (32-36) g/dL RDW Std Deviation (36.4-46.3) fL RDW Coeff of Nataly (11.5-14.5) % Plt Count (130-400) K/uL MPV (7.4-10.4) fL Immature Gran % (Auto) % Neut % (Auto) % Lymph % (Auto) % [place] % (Auto) % Eos % (Auto) % Baso % (Auto) % Immature Gran # (Auto) (0.00-0.02) K/uL Neut # (Auto) (1.4-6.5) K/uL Lymph # (Auto) (1.2-3.4) K/uL [place] # (Auto) (0.11-0.59) K/uL Eos # (Auto) (0-0.5) K/uL Baso # (Auto) (0-0.2) K/uL Sample Site POC pH (7.35-7.45) POC pCO2 (35-46) mmHg POC pO2 (80-95) mmHg POC HCO3 (19-24) kalyan/L POC Total CO2 (24-31) mEq/l POC Base Excess (-9-1.8) kalyan/L ABG pH (Temp Correct) (7.35-7.45) ABG pCO2 (Temp Corrct (35-46) mmHg POC ABG pO2 at Pt Temp POC ABG O2 Sat (90-95) % Marques Test O2 Delivery Device POC O2 Rate Minute Ventilation Tidal Volume PEEP Sodium 138 (136-145) mmol/L Potassium 3.4 L (3.5-5.1) mmol/L Chloride 94 L (98-107) mmol/L Carbon Dioxide 32 (21-32) mmol/L Anion Gap 11.0 (3-11) BUN 20 H (7-18) mg/dl Creatinine 1.04 (0.6-1.2) mg/dl Est Cr Clr Drug Dosing 43.4 ml/min Est GFR ( Amer) 59.6 Est GFR (Non-Af Amer) 51.4 BUN/Creatinine Ratio 19.1 (10-20) Glucose 230 H (70-99) mg/dl POC Glucose 220 H (70-99) Estimat Average Glucose mg/dl Hemoglobin A1c (4.5-5.6) % POC Lactic Acid Arter POC Lactic Acid Osvaldo (0.90-1.70) mmol/L Calcium 8.4 L (8.5-10.1) mg/dl Phosphorus 0.7 L* (2.5-4.9) mg/dl Magnesium 1.1 L (1.8-2.4) mg/dl Total Bilirubin (0.2-1) mg/dl Direct Bilirubin (0-0.2) mg/dl AST (15-37) U/L ALT (12-78) U/L Alkaline Phosphatase (45-117) U/L Ammonia (11-32) umol/L Troponin I 0.035 (0-0.045) ng/ml NT-Pro-B Natriuret Pep (0-1800) pg/ml Total Protein (6.4-8.2) gm/dl Albumin (3.4-5.0) gm/dl Procalcitonin (0-0.5) ng/ml Urine Color Urine Appearance (Clear) Urine pH (4.5-7.5) Ur Specific [place] (1.000-1.030) Urine Protein (Negative) Urine Glucose (UA) (Negative) Urine Ketones (Negative) Urine Blood (Negative) Urine Nitrite (Negative) Urine Bilirubin (Negative) Urine Urobilinogen (Negative) Ur Leukocyte Esterase (Negative) Urine WBC (Auto) (0-5) /hpf Urine RBC (Auto) (0-4) /hpf U Hyaline Cast (Auto) (0-5) /lpf U Epithel Cells (Auto) (0-5) /lpf Urine Bacteria (Auto) (Negative) Granular Casts (0) /lpf Fluid Neutrophils % % Fluid Lymphocytes % % Fl Monocyt/Macrophag % % Nasal Screen MRSA (PCR) (Negative) 12/27/18 12/27/18 12/27/18 Range/Units 18:17 18:17 18:10 WBC (4.8-10.8) K/uL RBC (4.2-5.4) M/uL Hgb (12.0-16.0) g/dL Hct (37-47) % MCV (80-100) fL MCH (25-34) pg MCHC (32-36) g/dL RDW Std Deviation (36.4-46.3) fL RDW Coeff of Nataly (11.5-14.5) % Plt Count (130-400) K/uL MPV (7.4-10.4) fL Immature Gran % (Auto) % Neut % (Auto) % Lymph % (Auto) % [place] % (Auto) % Eos % (Auto) % Baso % (Auto) % Immature Gran # (Auto) (0.00-0.02) K/uL Neut # (Auto) (1.4-6.5) K/uL Lymph # (Auto) (1.2-3.4) K/uL [place] # (Auto) (0.11-0.59) K/uL Eos # (Auto) (0-0.5) K/uL Baso # (Auto) (0-0.2) K/uL Sample Site POC pH (7.35-7.45) POC pCO2 (35-46) mmHg POC pO2 (80-95) mmHg POC HCO3 (19-24) kalyan/L POC Total CO2 (24-31) mEq/l POC Base Excess (-9-1.8) kalyan/L ABG pH (Temp Correct) (7.35-7.45) ABG pCO2 (Temp Corrct (35-46) mmHg POC ABG pO2 at Pt Temp POC ABG O2 Sat (90-95) % Marques Test O2 Delivery Device POC O2 Rate Minute Ventilation Tidal Volume PEEP Sodium (136-145) mmol/L Potassium (3.5-5.1) mmol/L Chloride (98-107) mmol/L Carbon Dioxide (21-32) mmol/L Anion Gap (3-11) BUN (7-18) mg/dl Creatinine (0.6-1.2) mg/dl Est Cr Clr Drug Dosing ml/min Est GFR ( Amer) Est GFR (Non-Af Amer) BUN/Creatinine Ratio (10-20) Glucose (70-99) mg/dl POC Glucose (70-99) Estimat Average Glucose mg/dl Hemoglobin A1c (4.5-5.6) % POC Lactic Acid Arter POC Lactic Acid Osvaldo (0.90-1.70) mmol/L Calcium (8.5-10.1) mg/dl Phosphorus 0.9 L* (2.5-4.9) mg/dl Magnesium (1.8-2.4) mg/dl Total Bilirubin (0.2-1) mg/dl Direct Bilirubin (0-0.2) mg/dl AST (15-37) U/L ALT (12-78) U/L Alkaline Phosphatase (45-117) U/L Ammonia (11-32) umol/L Troponin I (0-0.045) ng/ml NT-Pro-B Natriuret Pep 2261 H (0-1800) pg/ml Total Protein (6.4-8.2) gm/dl Albumin (3.4-5.0) gm/dl Procalcitonin 0.29 (0-0.5) ng/ml Urine Color Urine Appearance (Clear) Urine pH (4.5-7.5) Ur Specific [place] (1.000-1.030) Urine Protein (Negative) Urine Glucose (UA) (Negative) Urine Ketones (Negative) Urine Blood (Negative) Urine Nitrite (Negative) Urine Bilirubin (Negative) Urine Urobilinogen (Negative) Ur Leukocyte Esterase (Negative) Urine WBC (Auto) (0-5) /hpf Urine RBC (Auto) (0-4) /hpf U Hyaline Cast (Auto) (0-5) /lpf U Epithel Cells (Auto) (0-5) /lpf Urine Bacteria (Auto) (Negative) Granular Casts (0) /lpf Fluid Neutrophils % 81 % Fluid Lymphocytes % 15 % Fl Monocyt/Macrophag % 4 % Nasal Screen MRSA (PCR) (Negative) 12/27/18 12/27/18 12/27/18 Range/Units 17:20 14:54 14:48 WBC (4.8-10.8) K/uL RBC (4.2-5.4) M/uL Hgb (12.0-16.0) g/dL Hct (37-47) % MCV (80-100) fL MCH (25-34) pg MCHC (32-36) g/dL RDW Std Deviation (36.4-46.3) fL RDW Coeff of Nataly (11.5-14.5) % Plt Count (130-400) K/uL MPV (7.4-10.4) fL Immature Gran % (Auto) % Neut % (Auto) % Lymph % (Auto) % [place] % (Auto) % Eos % (Auto) % Baso % (Auto) % Immature Gran # (Auto) (0.00-0.02) K/uL Neut # (Auto) (1.4-6.5) K/uL Lymph # (Auto) (1.2-3.4) K/uL [place] # (Auto) (0.11-0.59) K/uL Eos # (Auto) (0-0.5) K/uL Baso # (Auto) (0-0.2) K/uL Sample Site POC pH (7.35-7.45) POC pCO2 (35-46) mmHg POC pO2 (80-95) mmHg POC HCO3 (19-24) kalyan/L POC Total CO2 (24-31) mEq/l POC Base Excess (-9-1.8) kalyan/L ABG pH (Temp Correct) (7.35-7.45) ABG pCO2 (Temp Corrct (35-46) mmHg POC ABG pO2 at Pt Temp POC ABG O2 Sat (90-95) % Marques Test O2 Delivery Device POC O2 Rate Minute Ventilation Tidal Volume PEEP Sodium (136-145) mmol/L Potassium (3.5-5.1) mmol/L Chloride (98-107) mmol/L Carbon Dioxide (21-32) mmol/L Anion Gap (3-11) BUN (7-18) mg/dl Creatinine (0.6-1.2) mg/dl Est Cr Clr Drug Dosing ml/min Est GFR ( Amer) Est GFR (Non-Af Amer) BUN/Creatinine Ratio (10-20) Glucose (70-99) mg/dl POC Glucose (70-99) Estimat Average Glucose mg/dl Hemoglobin A1c (4.5-5.6) % POC Lactic Acid Arter Pending POC Lactic Acid [place] (0.90-1.70) mmol/L Calcium (8.5-10.1) mg/dl Phosphorus (2.5-4.9) mg/dl Magnesium (1.8-2.4) mg/dl Total Bilirubin (0.2-1) mg/dl Direct Bilirubin (0-0.2) mg/dl AST (15-37) U/L ALT (12-78) U/L Alkaline Phosphatase (45-117) U/L Ammonia (11-32) umol/L Troponin I (0-0.045) ng/ml NT-Pro-B Natriuret Pep (0-1800) pg/ml Total Protein (6.4-8.2) gm/dl Albumin (3.4-5.0) gm/dl Procalcitonin (0-0.5) ng/ml Urine Color Yellow Urine Appearance Cloudy A (Clear) Urine pH 5.0 (4.5-7.5) Ur Specific [place] 1.027 (1.000-1.030) Urine Protein 1+ H (Negative) Urine Glucose (UA) 2+ H (Negative) Urine Ketones 1+ H (Negative) Urine Blood Negative (Negative) Urine Nitrite Negative (Negative) Urine Bilirubin Negative (Negative) Urine Urobilinogen Negative (Negative) Ur Leukocyte Esterase Negative (Negative) Urine WBC (Auto) 1-5 (0-5) /hpf Urine RBC (Auto) 5-10 H (0-4) /hpf U Hyaline Cast (Auto) 10-30 H (0-5) /lpf U Epithel Cells (Auto) 20-30 H (0-5) /lpf Urine Bacteria (Auto) Negative (Negative) Granular Casts 1-5 H (0) /lpf Fluid Neutrophils % % Fluid Lymphocytes % % Fl Monocyt/Macrophag % % Nasal Screen MRSA (PCR) Negative (Negative) 12/27/18 12/27/18 12/27/18 Range/Units 14:42 13:20 13:12 WBC (4.8-10.8) K/uL RBC (4.2-5.4) M/uL Hgb (12.0-16.0) g/dL Hct (37-47) % MCV (80-100) fL MCH (25-34) pg MCHC (32-36) g/dL RDW Std Deviation (36.4-46.3) fL RDW Coeff of Nataly (11.5-14.5) % Plt Count (130-400) K/uL MPV (7.4-10.4) fL Immature Gran % (Auto) % Neut % (Auto) % Lymph % (Auto) % [place] % (Auto) % Eos % (Auto) % Baso % (Auto) % Immature Gran # (Auto) (0.00-0.02) K/uL Neut # (Auto) (1.4-6.5) K/uL Lymph # (Auto) (1.2-3.4) K/uL [place] # (Auto) (0.11-0.59) K/uL Eos # (Auto) (0-0.5) K/uL Baso # (Auto) (0-0.2) K/uL Sample Site POC pH 7.36 7.12 L* (7.35-7.45) POC pCO2 78 H 53 H (35-46) mmHg POC pO2 74 L 85 (80-95) mmHg POC HCO3 44 H 17 L (19-24) kalyan/L POC Total CO2 > 40 H* 19 L (24-31) mEq/l POC Base Excess 18.0 H -12.0 L (-9-1.8) kalyan/L ABG pH (Temp Correct) (7.35-7.45) ABG pCO2 (Temp Corrct (35-46) mmHg POC ABG pO2 at Pt Temp POC ABG O2 Sat 93.0 92.0 (90-95) % Marques Test O2 Delivery Device POC O2 Rate Minute Ventilation Tidal Volume PEEP Sodium (136-145) mmol/L Potassium (3.5-5.1) mmol/L Chloride (98-107) mmol/L Carbon Dioxide (21-32) mmol/L Anion Gap (3-11) BUN (7-18) mg/dl Creatinine (0.6-1.2) mg/dl Est Cr Clr Drug Dosing ml/min Est GFR ( Amer) Est GFR (Non-Af Amer) BUN/Creatinine Ratio (10-20) Glucose (70-99) mg/dl POC Glucose (70-99) Estimat Average Glucose mg/dl Hemoglobin A1c (4.5-5.6) % POC Lactic Acid Arter POC Lactic Acid [place] 0.67 L (0.90-1.70) mmol/L Calcium (8.5-10.1) mg/dl Phosphorus (2.5-4.9) mg/dl Magnesium (1.8-2.4) mg/dl Total Bilirubin (0.2-1) mg/dl Direct Bilirubin (0-0.2) mg/dl AST (15-37) U/L ALT (12-78) U/L Alkaline Phosphatase (45-117) U/L Ammonia (11-32) umol/L Troponin I (0-0.045) ng/ml NT-Pro-B Natriuret Pep (0-1800) pg/ml Total Protein (6.4-8.2) gm/dl Albumin (3.4-5.0) gm/dl Procalcitonin (0-0.5) ng/ml Urine Color Urine Appearance (Clear) Urine pH (4.5-7.5) Ur Specific [place] (1.000-1.030) Urine Protein (Negative) Urine Glucose (UA) (Negative) Urine Ketones (Negative) Urine Blood (Negative) Urine Nitrite (Negative) Urine Bilirubin (Negative) Urine Urobilinogen (Negative) Ur Leukocyte Esterase (Negative) Urine WBC (Auto) (0-5) /hpf Urine RBC (Auto) (0-4) /hpf U Hyaline Cast (Auto) (0-5) /lpf U Epithel Cells (Auto) (0-5) /lpf Urine Bacteria (Auto) (Negative) Granular Casts (0) /lpf Fluid Neutrophils % % Fluid Lymphocytes % % Fl Monocyt/Macrophag % % Nasal Screen MRSA (PCR) (Negative) 12/27/18 Range/Units 13:05 WBC (4.8-10.8) K/uL RBC (4.2-5.4) M/uL Hgb (12.0-16.0) g/dL Hct (37-47) % MCV (80-100) fL MCH (25-34) pg MCHC (32-36) g/dL RDW Std Deviation (36.4-46.3) fL RDW Coeff of Nataly (11.5-14.5) % Plt Count (130-400) K/uL MPV (7.4-10.4) fL Immature Gran % (Auto) % Neut % (Auto) % Lymph % (Auto) % [place] % (Auto) % Eos % (Auto) % Baso % (Auto) % Immature Gran # (Auto) (0.00-0.02) K/uL Neut # (Auto) (1.4-6.5) K/uL Lymph # (Auto) (1.2-3.4) K/uL [place] # (Auto) (0.11-0.59) K/uL Eos # (Auto) (0-0.5) K/uL Baso # (Auto) (0-0.2) K/uL Sample Site POC pH (7.35-7.45) POC pCO2 (35-46) mmHg POC pO2 (80-95) mmHg POC HCO3 (19-24) kalyan/L POC Total CO2 (24-31) mEq/l POC Base Excess (-9-1.8) kalyan/L ABG pH (Temp Correct) (7.35-7.45) ABG pCO2 (Temp Corrct (35-46) mmHg POC ABG pO2 at Pt Temp POC ABG O2 Sat (90-95) % [place]ques Test O2 Delivery Device POC O2 Rate Minute Ventilation Tidal Volume PEEP Sodium (136-145) mmol/L Potassium (3.5-5.1) mmol/L Chloride (98-107) mmol/L Carbon Dioxide (21-32) mmol/L Anion Gap (3-11) BUN (7-18) mg/dl Creatinine (0.6-1.2) mg/dl Est Cr Clr Drug Dosing ml/min Est GFR ( Amer) Est GFR (Non-Af Amer) BUN/Creatinine Ratio (10-20) Glucose (70-99) mg/dl POC Glucose (70-99) Estimat Average Glucose mg/dl Hemoglobin A1c (4.5-5.6) % POC Lactic Acid Arter POC Lactic Acid [place] (0.90-1.70) mmol/L Calcium (8.5-10.1) mg/dl Phosphorus (2.5-4.9) mg/dl Magnesium (1.8-2.4) mg/dl Total Bilirubin (0.2-1) mg/dl Direct Bilirubin (0-0.2) mg/dl AST (15-37) U/L ALT (12-78) U/L Alkaline Phosphatase (45-117) U/L Ammonia 21.4 (11-32) umol/L Troponin I (0-0.045) ng/ml NT-Pro-B Natriuret Pep (0-1800) pg/ml Total Protein (6.4-8.2) gm/dl Albumin (3.4-5.0) gm/dl Procalcitonin (0-0.5) ng/ml Urine Color Urine Appearance (Clear) Urine pH (4.5-7.5) Ur Specific [place] (1.000-1.030) Urine Protein (Negative) Urine Glucose (UA) (Negative) Urine Ketones (Negative) Urine Blood (Negative) Urine Nitrite (Negative) Urine Bilirubin (Negative) Urine Urobilinogen (Negative) Ur Leukocyte Esterase (Negative) Urine WBC (Auto) (0-5) /hpf Urine RBC (Auto) (0-4) /hpf U Hyaline Cast (Auto) (0-5) /lpf U Epithel Cells (Auto) (0-5) /lpf Urine Bacteria (Auto) (Negative) Granular Casts (0) /lpf Fluid Neutrophils % % Fluid Lymphocytes % % Fl Monocyt/Macrophag % % Nasal Screen MRSA (PCR) (Negative) Medications Administered Current Inpatient Medications Albuterol (Duoneb) 3 ml INH Q4R KEV Stop: 01/26/19 18:59 Last Admin: 12/28/18 12:13 Dose: Not Given Documented by: Albuterol (Ventolin 0.5% 2.5mg/0.5ml) 2.5 mg NEB Q2H PRN PRN Reason: SOB/Wheeze Stop: 01/26/19 17:43 Amikacin Sulfate (Amikacin Consult Active) 1 ea N/A UD PRN PRN Reason: Consult Stop: 01/26/19 15:54 Dextrose (Dextrose 50%) 25 - 50 ml IV UD PRN; Protocol PRN Reason: Hypoglycemia Protocol Stop: 01/27/19 01:59 Diltiazem HCl (Cardizem) 90 mg PO Q6 KEV Stop: 01/27/19 11:59 Last Admin: 12/28/18 11:57 Dose: 90 mg Documented by: Ethambutol HCl (Myambutol) 800 mg PO HS KEV Stop: 01/26/19 20:59 Last Admin: 12/27/18 20:32 Dose: 800 mg Documented by: Ethambutol HCl (Myambutol) 200 mg PO HS KEV Stop: 01/26/19 20:59 Last Admin: 12/27/18 20:34 Dose: 200 mg Documented by: Fentanyl Citrate (Fentanyl Citrate) 50 mcg IV Q2H PRN PRN Reason: Pain Stop: 01/10/19 17:43 Last Admin: 12/27/18 21:47 Dose: 50 mcg Documented by: Glucagon (Glucagen) 1 mg IM UD PRN; Protocol PRN Reason: Hypoglycemia Protocol Stop: 01/27/19 01:59 Glucose (Glucose 40%) 15 - 30 gm PO UD PRN; Protocol PRN Reason: Hypoglycemia Protocol Stop: 01/27/19 01:59 Glucose (Dex4 Glucose) 4 - 8 tabs PO UD PRN; Protocol PRN Reason: Hypoglycemia Protocol Stop: 01/27/19 01:59 Heparin Sodium (Porcine) (Heparin Sodium (Porcine)) 5,000 units SQ BID [facility] Stop: 01/28/19 08:59 Propofol (Diprivan) 1,000 mg in 100 mls @ 12.276 mls/hr IV .Q8H9M KEV; Protocol Stop: 12/30/18 13:29 Last Titration: 12/28/18 11:54 Dose: 30 mcg/kg/min, 12.3 mls/hr Documented by: Azithromycin 500 mg/ Dextrose 255 mls @ 127.5 mls/hr IV Q24H [facility] Stop: 01/03/19 15:59 Last Infusion: 12/27/18 17:58 Dose: Infused Documented by: Amikacin Sulfate 750 mg/ (Dextrose) 253 mls @ 250 mls/hr IV MoWeFr@2100 [facility] Stop: 01/26/19 20:59 Last Infusion: 12/27/18 21:47 Dose: Infused Documented by: Cefepime HCl 2,000 mg/ Syringe 20 mls @ 5 mls/min IV Q8H [facility] Stop: 01/03/19 18:59 Last Admin: 12/28/18 10:27 Dose: 5 mls/min Documented by: Diltiazem HCl 125 mg/ Dextrose 125 mls @ 15 mls/hr IV .Q8H20M [facility]; Protocol Stop: 01/27/19 00:14 Last Admin: 12/28/18 07:51 Dose: 15 mg/hr, 15 mls/hr Documented by: Insulin Human Regular 250 (units/ Sodium Chloride) 250 mls @ 1.8 mls/hr IV .Q24H [facility]; Protocol Stop: 01/27/19 01:59 Last Titration: 12/28/18 11:41 Dose: 1.8 units/hr, 1.8 mls/hr Documented by: Potassium Phosphate 21 mmol/ (Sodium Chloride) 507 mls @ 88 mls/hr IV ONE ONE Stop: 12/28/18 17:45 Last Admin: 12/28/18 11:30 Dose: 88 mls/hr Documented by: Insulin Aspart (Novolog Flexpen) 0 units SC ACHS [facility] Stop: 01/27/19 07:29 Last Admin: 12/28/18 11:57 Dose: Not Given Documented by: Lansoprazole (Prevacid) 30 mg NG QAM KEV; Protocol Stop: 01/27/19 13:59 Magnesium Oxide (Mag-Ox) 400 mg PO HS KEV Stop: 01/27/19 20:59 Miscellaneous (Carbohydrates For Hypoglycemia) 15 - 30 gm PO PRN PRN PRN Reason: Hypoglycemia Treatment Stop: 01/27/19 01:59 Miscellaneous Information (Cefepime Consult Active) 1 ea N/A UD PRN PRN Reason: Consult Stop: 01/26/19 16:02 Miscellaneous Information (Consult Glycemic Management Pharmacy) 1 ea N/A UD PRN PRN Reason: Consult Stop: 01/27/19 01:59 Prednisone (Prednisone) 40 mg NG DAILY@0900 [facility]; Taper Stop: 01/09/19 08:59 Prednisone (Prednisone) 40 mg NG .EXTRA DOSE ONE Stop: 12/28/18 14:01 Rifampin (Rifampin) 600 mg PO HS KEV Stop: 01/03/19 20:59 Last Admin: 12/27/18 20:32 Dose: 600 mg Documented by: PG Care Time/CCT Total # of Minutes Spent Total Time Spent with Patient: Total time spent is greater than 50% in coordination of care (as documented) at patient's floor/unit and/or counseling patient: Resident Activity Tracking Resident Involvement: Resident Care Provided Care Provided: Adult Hospital Medicine
--- NOTE | 2018-12-28 10:43 | Infectious Disease Consult ---
Date of Consultation December 28, 2018 Assessment & Plan (1) Pneumonia: 78 yo female with severe COPD now with acute respiratory failure. Pending bronchoscopy smears and cultures, to continue present Abx for now. Keep close eye on renal function on amikacin. Will follow. (2) RAUL (mycobacterium avium-intracellulare) infection: History of Present Illness Reason for Consultation: Probable MAC Attending Physician: Beth Jimenez DO History of Present Illness 78-year-old female with long-standing severe COPD, diabetes mellitus, hyperlipidemia, who was admitted to the hospital with acute onset of respiratory failure with need for intubation. She was found by her to be confused and lethargic and was severely hypoxic upon examination. She was found to have changes on CT scan of her chest consistent with possible RAUL disease, and has been started empirically on combination of azithromycin, rifampin, ethambutol, and amikacin. Also being treated for possible bacterial pneumonia. Blood cultures are negative today, bronchoscopy cultures are pending. Procalcitonin within normal range. Other significant travel or exposure history. Allergies Allergy/AdvReac Type Severity Reaction Status Date / Time [id number] Reductase Allergy Unknown Verified 12/27/18 16:09 Inhibitor Home Medications Home Medications Medication Instructions Recorded Confirmed Type Incruse Ellipta 1 inh INHALATION DAILY 08/21/18 12/27/18 History albuterol sulfate 2 puff INHALATION QID PRN 08/21/18 12/27/18 History albuterol sulfate 2.5 mg INHALATION Q4H PRN 08/21/18 12/27/18 History alprazolam 0.25 mg PO DAILY PRN 08/21/18 12/27/18 History cholecalciferol (vitamin D3) 1,000 unit PO DAILY 08/21/18 12/27/18 History [Vitamin D3] cranberry extract 250 mg PO DAILY 08/21/18 12/27/18 History metformin 500 mg PO BID 08/21/18 12/27/18 History niacin 500 mg PO BID 08/21/18 12/27/18 History omega 2-fyv-pby-fish oil [Fish Oil] 1 cap PO DAILY 08/21/18 12/27/18 History risedronate 35 mg PO WK 08/21/18 12/27/18 History vitamin E 1,000 unit PO DAILY 08/21/18 12/27/18 History prednisone 10 mg tablet 10 mg PO DAILY #90 tab 09/04/18 12/27/18 Rx diltiazem CD 300 mg 300 mg PO QAM #90 cap 11/16/18 12/27/18 Rx capsule,extended release 24 hr Patient History Medical History Acute and chronic respiratory failure with hypercapnia (Resolved) Anemia (Resolved) COPD exacerbation (Resolved) Chronic obstructive pulmonary disease (Resolved) Chronic respiratory failure with hypoxia and hypercapnia (Resolved) Falls frequently (Resolved) Fatty liver (Resolved) HTN (hypertension) (Resolved) Hyperlipidemia (Resolved) Hypoxia (Resolved) Impaired fasting glucose (Resolved) Influenza vaccine needed (Resolved) Insomnia (Resolved) Internal hemorrhoids (Resolved) Osteopenia (Resolved) Other specified disorders of bone density and structure, other site (Resolved) PNA (pneumonia) (Resolved 06/20/13) Pleural effusion on left (Resolved) Pneumonia (Resolved) Respiratory distress (Resolved 06/20/13) Respiratory failure (Resolved) Sepsis (Resolved) Shortness of breath (Resolved) Tubular adenoma of colon (Resolved) Type 2 diabetes mellitus (Resolved) Family History Other Family history non-contributory Social History Preferred Language: Kyr[place]z Communication Ability: Effective Turn Operator Required: No Beliefs That Will Affect Care: None marital status: Current Living Situation: Spouse current occupational status: retired Feels Safe at Home: Yes Smoking Status: Former smoker Hx Alcohol Use: No Hx Substance Use: No Review of Systems Review of Systems: Unobtainable due to endotracheal tube Physical Exam Constitutional: WD/WN, vitals as above comfortable; no acute distress Eyes: PERRL, conjunctivae normal, anicteric sclerae ENMT: external ear and nose normal, oropharynx normal Endotracheal tube in place Neck: trachea midline, no thyromegaly neck nontender Respiratory: no respiratory distress and does not use accessory muscles Auscultation: + diminished lung sounds Cardiovascular: Rate/Rhythm: regular rate and regular rhythm Heart Sounds: normal S1 and normal S2; no gallop, no murmur and no cardiac rub Vessels: normal peripheral pulses; no JVD Gastrointestinal (Abdomen): normal bowel sounds, soft, nontender, no hepatosplenomegaly Musculoskeletal: no cyanosis or clubbing, extremities motor strength 5/5 Spine: thoracic spine normal to inspection and lumbar spine normal to inspection; no cervical spinal tenderness Skin: no rashes, warm and dry normal turgor; no lesions Neurologic: patellar DTR's 2+ bilat, sensation intact no focal motor deficits Psychiatric: A+Ox3, euthymic affect Orientation: cooperative Lymphatic: no cervical or axillary lymphadenopathy no inguinal lymphadenopathy Results & Data Vital Signs (Past 12 Hours) Vital Signs Temp Pulse Resp BP Pulse Ox 12/28/18 10:00 116 H 132/69 96 12/28/18 09:01 104 H 96 12/28/18 09:00 37.4 C 119 H 135/67 96 12/28/18 08:00 128 H 132/62 96 12/28/18 07:49 130 H 20 95 12/28/18 07:00 129 H 124/60 95 12/28/18 05:30 139 H 123/60 94 12/28/18 05:02 128 H 20 94 12/28/18 05:00 134 H 110/71 95 12/28/18 04:30 130 H 100/74 94 12/28/18 04:01 37.5 C 132 H 95 12/28/18 03:30 130 H 111/56 L 95 12/28/18 03:00 133 H 112/80 95 12/28/18 02:30 142 H 114/75 94 12/28/18 02:00 134 H 24 113/66 95 12/28/18 01:30 137 H 102/79 97 12/28/18 01:00 129 H 110/56 L 96 12/28/18 00:30 132 H 118/55 L 95 12/28/18 00:00 37.6 C H 163 H 121/56 L 96 12/27/18 23:30 132 H 102/65 97 12/27/18 23:22 124 H 113/56 L 97 12/27/18 23:00 140 H 101/61 97 12/27/18 22:42 118 H 24 100 Laboratory Results Short CBC 12/27/18 12/28/18 Range/Units 11:50 04:05 WBC 11.62 H 11.12 H (4.8-10.8) K/uL Hgb 10.9 L 9.6 L (12.0-16.0) g/dL Hct 37.1 32.4 L (37-47) % Plt Count 301 259 (130-400) K/uL BMP 12/27/18 12/27/18 12/28/18 11:50 23:57 04:05 Sodium 139 138 137 Potassium 3.6 3.4 L 3.4 L Chloride 91 L 94 L 94 L Carbon Dioxide 44 H* 32 32 BUN 16 20 H 23 H Creatinine 0.75 1.04 1.33 H Glucose 286 H 230 H 203 H Calcium 9.3 8.4 L 8.0 L Cardiac Enzymes 12/27/18 12/27/18 Range/Units 11:50 19:55 Troponin I 0.019 0.035 (0-0.045) ng/ml Liver Function 12/27/18 12/28/18 Range/Units 11:50 04:05 Total Bilirubin 0.7 1.5 H D (0.2-1) mg/dl Direct Bilirubin 0.8 H (0-0.2) mg/dl AST 21 15 (15-37) U/L ALT 29 22 (12-78) U/L Alkaline Phosphatase 194 H 148 H (45-117) U/L Albumin 2.9 L 2.4 L (3.4-5.0) gm/dl Urine 12/27/18 Range/Units 14:54 Urine Color Yellow Urine Appearance Cloudy A (Clear) Urine pH 5.0 (4.5-7.5) Ur Specific [place] 1.027 (1.000-1.030) Urine Protein 1+ H (Negative) Urine Glucose (UA) 2+ H (Negative) Diagnostic Findings Microbiology 12/27/18 18:10 Bronch Wash,Left Lower Lobe Gram Stain - Final 12/27/18 18:10 Bronch Wash,Left Lower Lobe Bronchoalveolar Lavage Culture - Preliminary Gram negative bacilli 12/27/18 18:10 Bronch Wash,Left Lower Lobe Fungal Smear - Final CT ANGIOGRAM OF THE CHEST CLINICAL HISTORY: Respiratory failure. Possible pulmonary embolism. UNRESPONSIVE EPISODE COMPARISON STUDY: Noncontrast CT scan dated 11/13/2018, chest x-ray dated 12/27/2018 TECHNIQUE: Following the IV administration of 119 mL of [id number]-320, CT angiogram of the thorax was performed from the thoracic inlet to the lung bases utilizing the pulmonary embolus protocol. Images are reviewed in the axial, sagittal, and coronal planes. IV contrast was administered without complication. MIP imaging was performed. A dose lowering technique was utilized adhering to the principles of ALARA. CT DOSE: 512.82 mGy.cm FINDINGS: There are persistent mildly enlarged mediastinal and right hilar lymph nodes. There was no evidence of thoracic aortic dilatation. There were no pulmonary artery filling defects to indicate acute pulmonary embolism. There are small bilateral pleural effusions. There are calcified pleural plaques. There is an endotracheal tube 3 cm above the deysi. There is severe pulmonary emphysema. There is extensive left lung volume loss. There are persistent extensive left lung areas of consolidation with bronchiectasis. There are dependent right lower lobe atelectatic changes. There is right lower lobe bronchial wall thickening with areas of mucous plugging. There are chronic right middle lobe atelectatic changes with areas of bronchial wall thickening. There is a new 1 cm irregular right upper lobe pulmonary nodule. This is likely infectious/inflammatory given that it was not present 6 weeks prior. IMPRESSION: 1. Severe pulmonary emphysema 2. No evidence of acute pulmonary embolism 3. Stable left lung volume loss, bronchiectasis, and parenchymal consolidation 4. Small left pleural effusion 5. Interval development of a small right pleural effusion with right basilar atelectasis 6. Right middle lobe and right lower lobe bronchial wall thickening and mucous plugging 7. Chronic volume loss and fibrotic changes in the right middle lobe 8. New irregular 1 cm right upper lobe nodule, likely infectious/inflammatory 9. Stable mild adenopathy 10. Calcified pleural plaques Electronically signed by: Roosevelt Mejai M.D. 12/27/2018 2:41 PM PG Care Time/CCT Total # of Minutes Spent Total Time Spent with Patient: Total time spent is greater than 50% in coordination of care (as documented) at patient's floor/unit and/or counseling patient: (1) Pneumonia Laterality: unspecified laterality Lung location: unspecified part of lung Pneumonia type: due to unspecified organism Qualified Code(s): J18.9 - Pneumonia, unspecified organism
[2018-12-28] MEDS: dilTIAZem HCl 60 MG TAB PO SCH ×2 (11:57→17:03)
[2018-12-28] MEDS ORDERED: POTASSIUM PHOSPHATE 21 MMOL in SODIUM CHLORIDE 0.9% 500 ML IV ONE (12:00)
[2018-12-28] MEDS ORDERED: predniSONE 10 MG TABLET NG ONE (14:00)
[2018-12-28] MEDS: LANSOPRAZOLE 30 MG SOLTAB NG SCH (14:10)
--- NOTE | 2018-12-28 15:25 | Pharmacy Report ---
Pharmacy Glycemic Short Note 2 - Date of Service December 28, 2018 - Glycemic Short BSG Results (Last 24 hours): 12/27/18 12/28/18 12/28/18 23:57 01:15 02:18 Glucose 230 H POC Glucose 220 H 231 H 12/28/18 12/28/18 12/28/18 03:26 04:05 04:35 Glucose 203 H POC Glucose 238 H 200 H 12/28/18 12/28/18 12/28/18 05:46 06:43 07:39 Glucose POC Glucose 197 H 202 H 173 H 12/28/18 12/28/18 12/28/18 08:39 09:42 11:04 Glucose POC Glucose 143 H 124 H 109 H 12/28/18 12/28/18 11:38 12:46 Glucose POC Glucose 105 H 106 H OUTPATIENT ANTIDIABETIC REGIMEN: * Metformin 500mg PO BID * A1c = 7.4% 12/28/18 ASSESSMENT: * Type 2 diabetic admitted for respiratory failure, hypercapneic resp failure w/ resp acidosis leading to intubation/mech ventilation * IV steroid therapy and abx therapy initiated for CAP with risk factors for resistant organism + treatment for possible RAUL pulm infxn * IV insulin drip initiated per ICU protocol for BSG > 220 * Insulin drip continues at this time at 1.85 units/hr, last 3 BSGs in goal range at this rate and monitoring may decrease to Q 2 hrs in near future * Pt failed SBT today and will remain intubated - reassess readiness for extubation tomorrow AM * Steroid regimen changed from Solu-medrol 30mg TID to Prednisone taper * Tube feedings planned for later today as pt not ready for extubation PLAN FOR INPATIENT GLYCEMIC CONTROL: * Continue IV insulin drip per protocol given ongoing steroid provision and the initiation of continuous tube feeds while still intubated * Goal range 110-180mg/dL PLAN FOR DISCHARGE: * to be determined
[2018-12-28] MEDS: AZITHROMYCIN 500 MG in DEXTROSE 5% 250 ML IV SCH (16:05)
[2018-12-28] MEDS ORDERED: PEPTAMEN INTENSE VHP 1.0 CAL 1,000 ML BAG OG SCH (16:15)
[2018-12-28] MEDS: MAGNESIUM OXIDE 400 MG TAB PO SCH (22:25)
[2018-12-28] MEDS: rifAMPin 300 MG CAPSULE PO SCH (22:25)
[2018-12-28] MEDS: ETHAMBUTOL HCL 400 MG TAB PO SCH (22:25)
[2018-12-28] MEDS: ETHAMBUTOL HCL 100 MG PO SCH (22:25)
[2018-12-29] MEDS: dilTIAZem HCl 60 MG TAB PO SCH ×2 (00:51→06:18)
[2018-12-29] MEDS: PROPOFOL 1,000 MG/100 ML VIAL IV SCH (01:20)
[2018-12-29] MEDS: INSULIN REGULAR 250 UNITS in SODIUM CHLORIDE 0.9% 247.5 ML IV SCH (02:00)
[2018-12-29] MEDS: ALBUT/IPRATROP 3MG/0.5MG NEB 3 ML VIAL INH SCH ×2 (03:06→07:34)
[2018-12-29] MEDS: CEFEPIME 2,000 MG in SYRINGE 7.5 ML IV SCH ×3 (03:57→22:06)
[2018-12-29 04:40] LABS: Basophils # (auto) 0.01 K/uL (0-0.2); Basophils % (auto) 0.1 %; Hematocrit (blood only) 31.7 % (37-47); Hemoglobin 9.9 g/dL (12.0-16.0); Immature Granulocytes # (auto) 0.11 K/uL (0.00-0.02); Immature Granulocytes % (auto) 0.6 %; Lymphocytes # (auto) 1.08 K/uL (1.2-3.4); Lymphocytes % (auto) 5.6 %; Mean Corpuscular Hemoglobin 28.6 pg (25-34); Mean Corpuscular Hgb Conc 31.2 g/dL (32-36); Mean Corpuscular Volume 91.6 fL (80-100); Mean Platelet Volume 9.5 fL (7.4-10.4); Monocytes # (auto) 1.25 K/uL (0.11-0.59); Monocytes % (auto) 6.5 %; Neutrophils # (auto) 16.69 K/uL (1.4-6.5); Neutrophils % (auto) 87.2 %; Platelet Count 272 K/uL (130-400); RDW Coefficient of Variation 14.3 % (11.5-14.5); RDW Standard Deviation 47.2 fL (36.4-46.3); Red Blood Count 3.46 M/uL (4.2-5.4); White Blood Count 19.14 K/uL (4.8-10.8)
[2018-12-29 04:56] LABS: BUN Creatinine Ratio 21.9 (10-20); Creatinine Clr Calc Pharmacy 42.9 ml/min; Est GFR (African American) 58.9; Est GFR (Non-African American) 50.8; Magnesium 2.3 mg/dl (1.8-2.4); Potassium 3.7 mmol/L (3.5-5.1)
[2018-12-29 06:02] LABS: iSTAT Art Bld Gas pCO2 Correct 42 mmHg (35-46); iSTAT Art Bld Gas pH Corrected 7.544 (7.35-7.45); iSTAT Arterial Blood Gas HCO3 36 meg/L (19-24); iSTAT Arterial Blood Gas pCO2 42 mmHg (35-46); iSTAT Arterial Blood Gas pH 7.55 (7.35-7.45); iSTAT Arterial Blood Gas pO2 96 mmHg (80-95); iSTAT Arterial Blood Gas pO2 C 98; iSTAT Carbon Dioxide 37 mEq/l (24-31); iSTAT FiO2 40 %; iSTAT Site Art Line
--- NOTE | 2018-12-29 07:46 | XRay Report ---
XR chest 1V portable CLINICAL HISTORY: 78 years-old Female presenting with Resp failure. TECHNIQUE: Portable upright AP view of the chest was obtained. COMPARISON: 12/28/2018. FINDINGS: Endotracheal tube terminates in the midthoracic trachea over 3 cm from the deysi, which is poorly de lineated. Nasogastric tube descends below the diaphragm, terminus and sidehole not visualized. Charlie us external leads overlie the thorax to grating evaluation. Atherosclerosis of the aortic arch. Cardiac silhouette moderately enlarged. Slight leftward shift of the mediastinum as on prior exam. Poor aeration of the left lung base unchanged with suspected underl homer moderate left pleural effusion. Tubular opacities in the left mid lung as on prior exam. Heterog eneous radiolucency of the right lung, which is hyperinflated. Minimal patchy opacities are suspected in the right mid to lower lung as on prior exam. Osseous structures normal. Upper abdomen normal. IMPRESSION: 1. Unchanged appearance with extensive consolidation or atelectasis at the left lung base with suspe cted underlying moderate left pleural effusion. 2. Extensive left mid lung infiltrates and suggestion of minimal right mid to lower lung patchy infi ltrates. This is concerning for superimposed pneumonia and is not significant change from prior. 3. Suspected underlying emphysema. 4. Appropriately positioned tubes. Electronically signed by: Fam Stauffer M.D. 12/29/2018 7:45 AM
[2018-12-29] MEDS ORDERED: dilTIAZem HCl 5 MG/ML 5 ML VIAL IV STA ×2 (08:05→09:01)
--- NOTE | 2018-12-29 08:08 | Family Medicine Progress Note ---
Date of Service December 29, 2018 Assessment & Plan (1) Admitted to intensive care unit: Elderly female with past medical history of severe COPD on 4 L at home presented to the emergency department with somnolescent's and altered mental status and found to have a pulse ox of 73%, initially placed on BiPAP with good response however subsequently deteriorated and was intubated with transfer to the ICU. #COPD exacerbation Likely secondary to pneumonia, cultures negative to date. Patient status post bronchoscopy we will follow-up results -Prednisone taper starting at 40 mg today, albuterol and DuoNebs as needed -Follow-up [facility] cultures -Infectious disease consulted -Continue amikacin, ethambutol, rifampin for mac -Cefepime for Pseudomonas in sputum culture -Monitor renal function while on amikacin #Acute hypoxic hypercapnic respiratory failure On mechanical ventilation after failing BiPAP -Management as above #Paroxysmal A. fib with RVR -Continue diltiazem and heparin #Hypertension -Continue diltiazem 300 mg #Troponins Likely elevated secondary to demand ischemia #History of fatty liver disease -Trend LFTs #Diabetes type 2 Last A1c 7.27 August 2018 ICU hyperglycemia protocol FENa: N.p.o. advance as tolerated Code Status: DNR/DNI DVT PPX: Lovenox subcu PT/OT: TBD Dispo: ICU Carlo Peña MD PGY 2, FCM This chart was completed utilizing [employer] voice recognition software. Grammatical errors, random word insertions, pronoun errors, and in complete sentences are an occasional consequence of the system. Any questions or concerns about the content, text, or information contained within the body of this dictation should be addressed directly to the physician for clarification. Supervising Physician Co-Signing Physician Notes Attending attestation Pt seen and examined in concert with Dr. Peña. In agreement with the documented findings as noted in the resident documentation with any exceptions or additions as noted here. Sitting up in bed and conversing with . Diminished breath sounds throughout with scattered wheezing. Acute hypoxic respiratory failure 2/2 pneumonia v. mycobacterial infection in the setting of O2 dependent COPD s/p extubation - Oxymask 10L on broad spectrum antibiotic therapy and steroids. Awaiting culture results. Tachycardia w/ demand ischemia - continue diltiazem drip and monitor HR DMII - DM protocol Else see resident documentation as noted. Subjective Patient extubated this morning sitting upright in bed, mentating and conversing. We confirmed that the patient is in fact a DNR/DNI. Patient making meaningful progress forward, maintaining oxygenation on her own on 10 L with an Oxy mask. Patient was pleasant and in good spirits when we saw her, has not eaten yet, Amezcua in place. at the bedside all questions were answered no acute concerns. Continue care per ICU Review of Systems Constitutional: + fatigue; no fever and no chills Respiratory: + cough, + chest congestion and + dyspnea Cardiovascular: no chest pain, no palpitations and no edema Gastrointestinal: no nausea, no vomiting and no constipation Neurologic: no tingling, no numbness and no headache(s) Physical Exam Physical Exam: General: Elderly female sitting up in bed with oxygen mask in place mentating well HEENT: Normocephalic atraumatic Neck: No visual inspection Cardiac: Tachycardic, I did not appreciate significant murmurs rubs or gallops, negative pedal edema, negative calf tenderness Respiratory: Diffusely rhonchorous, with increased work of breathing GI: Bowel sounds present MSK: Moves extremities Neuro: Mentating well Psych: A little bit anxious, cooperative with exam Results & Data Vital Signs (Past 12 Hours) Vital Signs Temp Pulse Resp BP Pulse Ox 12/29/18 07:07 114 H 12/29/18 05:00 145 H 26 H 97 12/29/18 04:00 37.0 C 102 H 133/98 97 12/29/18 03:30 105 H 130/76 96 12/29/18 03:00 119 H 131/71 97 12/29/18 02:30 88 128/81 97 12/29/18 02:25 101 H 18 97 12/29/18 02:00 103 H 129/86 95 12/29/18 01:30 98 H 121/67 97 12/29/18 01:00 89 130/73 97 12/29/18 00:30 105 H 140/85 97 12/29/18 00:00 36.8 C 105 H 140/83 97 12/28/18 23:45 103 H 17 97 12/28/18 23:30 113 H 123/89 96 12/28/18 23:00 112 H 119/94 97 12/28/18 22:30 98 H 139/83 96 12/28/18 22:00 109 H 132/96 96 12/28/18 21:30 118 H 128/85 96 12/28/18 21:00 118 H 141/64 H 96 12/28/18 20:30 121 H 119/76 97 12/28/18 20:25 115 H 20 98 Laboratory Results 12/29/18 12/29/18 12/29/18 Range/Units 07:55 06:33 05:49 WBC (4.8-10.8) K/uL RBC (4.2-5.4) M/uL Hgb (12.0-16.0) g/dL Hct (37-47) % MCV (80-100) fL MCH (25-34) pg MCHC (32-36) g/dL RDW Std Deviation (36.4-46.3) fL RDW Coeff of Nataly (11.5-14.5) % Plt Count (130-400) K/uL MPV (7.4-10.4) fL Immature Gran % (Auto) % Neut % (Auto) % Lymph % (Auto) % [place] % (Auto) % Eos % (Auto) % Baso % (Auto) % Immature Gran # (Auto) (0.00-0.02) K/uL Neut # (Auto) (1.4-6.5) K/uL Lymph # (Auto) (1.2-3.4) K/uL [place] # (Auto) (0.11-0.59) K/uL Eos # (Auto) (0-0.5) K/uL Baso # (Auto) (0-0.2) K/uL Sample Site Art Line POC pH 7.55 H* (7.35-7.45) POC pCO2 42 (35-46) mmHg POC pO2 96 H (80-95) mmHg POC HCO3 36 H (19-24) kalyan/L POC Total CO2 37 H (24-31) mEq/l POC Base Excess 14.0 H (-9-1.8) kalyan/L ABG pH (Temp Correct) 7.544 H* (7.35-7.45) ABG pCO2 (Temp Corrct 42 (35-46) mmHg POC ABG pO2 at Pt Temp 98 POC ABG O2 Sat 98.0 H (90-95) % Marques Test NA O2 Delivery Device Ventilator POC FiO2 40 % PEEP 5 Sodium (136-145) mmol/L Potassium (3.5-5.1) mmol/L Chloride (98-107) mmol/L Carbon Dioxide (21-32) mmol/L Anion Gap (3-11) BUN (7-18) mg/dl Creatinine (0.6-1.2) mg/dl Est Cr Clr Drug Dosing ml/min Est GFR ( Amer) Est GFR (Non-Af Amer) BUN/Creatinine Ratio (10-20) Glucose (70-99) mg/dl POC Glucose 94 103 H (70-99) POC Lactic Acid Arter (0.36-1.25) mmol/L Calcium (8.5-10.1) mg/dl Magnesium (1.8-2.4) mg/dl 12/29/18 12/29/18 12/29/18 Range/Units 05:36 04:26 04:24 WBC (4.8-10.8) K/uL RBC (4.2-5.4) M/uL Hgb (12.0-16.0) g/dL Hct (37-47) % MCV (80-100) fL MCH (25-34) pg MCHC (32-36) g/dL RDW Std Deviation (36.4-46.3) fL RDW Coeff of Nataly (11.5-14.5) % Plt Count (130-400) K/uL MPV (7.4-10.4) fL Immature Gran % (Auto) % Neut % (Auto) % Lymph % (Auto) % [place] % (Auto) % Eos % (Auto) % Baso % (Auto) % Immature Gran # (Auto) (0.00-0.02) K/uL Neut # (Auto) (1.4-6.5) K/uL Lymph # (Auto) (1.2-3.4) K/uL [place] # (Auto) (0.11-0.59) K/uL Eos # (Auto) (0-0.5) K/uL Baso # (Auto) (0-0.2) K/uL Sample Site POC pH (7.35-7.45) POC pCO2 (35-46) mmHg POC pO2 (80-95) mmHg POC HCO3 (19-24) kalyan/L POC Total CO2 (24-31) mEq/l POC Base Excess (-9-1.8) kalyan/L ABG pH (Temp Correct) (7.35-7.45) ABG pCO2 (Temp Corrct (35-46) mmHg POC ABG pO2 at Pt Temp POC ABG O2 Sat (90-95) % Marques Test O2 Delivery Device POC FiO2 % PEEP Sodium 141 (136-145) mmol/L Potassium 3.7 (3.5-5.1) mmol/L Chloride 100 (98-107) mmol/L Carbon Dioxide 34 H (21-32) mmol/L Anion Gap 7.0 (3-11) BUN 23 H (7-18) mg/dl Creatinine 1.05 (0.6-1.2) mg/dl Est Cr Clr Drug Dosing 42.9 ml/min Est GFR ( Amer) 58.9 Est GFR (Non-Af Amer) 50.8 BUN/Creatinine Ratio 21.9 H (10-20) Glucose 96 (70-99) mg/dl POC Glucose 88 97 (70-99) POC Lactic Acid Arter (0.36-1.25) mmol/L Calcium 8.0 L (8.5-10.1) mg/dl Magnesium 2.3 (1.8-2.4) mg/dl 12/29/18 12/29/18 12/29/18 Range/Units 04:24 03:26 02:32 WBC 19.14 H (4.8-10.8) K/uL RBC 3.46 L (4.2-5.4) M/uL Hgb 9.9 L (12.0-16.0) g/dL Hct 31.7 L (37-47) % MCV 91.6 (80-100) fL MCH 28.6 (25-34) pg MCHC 31.2 L (32-36) g/dL RDW Std Deviation 47.2 H (36.4-46.3) fL RDW Coeff of Nataly 14.3 (11.5-14.5) % Plt Count 272 (130-400) K/uL MPV 9.5 (7.4-10.4) fL Immature Gran % (Auto) 0.6 % Neut % (Auto) 87.2 % Lymph % (Auto) 5.6 % [place] % (Auto) 6.5 % Eos % (Auto) 0.0 % Baso % (Auto) 0.1 % Immature Gran # (Auto) 0.11 H (0.00-0.02) K/uL Neut # (Auto) 16.69 H (1.4-6.5) K/uL Lymph # (Auto) 1.08 L (1.2-3.4) K/uL [place] # (Auto) 1.25 H (0.11-0.59) K/uL Eos # (Auto) 0.00 (0-0.5) K/uL Baso # (Auto) 0.01 (0-0.2) K/uL Sample Site POC pH (7.35-7.45) POC pCO2 (35-46) mmHg POC pO2 (80-95) mmHg POC HCO3 (19-24) kalyan/L POC Total CO2 (24-31) mEq/l POC Base Excess (-9-1.8) kalyan/L ABG pH (Temp Correct) (7.35-7.45) ABG pCO2 (Temp Corrct (35-46) mmHg POC ABG pO2 at Pt Temp POC ABG O2 Sat (90-95) % Marques Test O2 Delivery Device POC FiO2 % PEEP Sodium (136-145) mmol/L Potassium (3.5-5.1) mmol/L Chloride (98-107) mmol/L Carbon Dioxide (21-32) mmol/L Anion Gap (3-11) BUN (7-18) mg/dl Creatinine (0.6-1.2) mg/dl Est Cr Clr Drug Dosing ml/min Est GFR ( Amer) Est GFR (Non-Af Amer) BUN/Creatinine Ratio (10-20) Glucose (70-99) mg/dl POC Glucose 101 H 110 H (70-99) POC Lactic Acid Arter (0.36-1.25) mmol/L Calcium (8.5-10.1) mg/dl Magnesium (1.8-2.4) mg/dl 12/29/18 12/29/18 12/28/18 Range/Units 01:41 00:40 23:26 WBC (4.8-10.8) K/uL RBC (4.2-5.4) M/uL Hgb (12.0-16.0) g/dL Hct (37-47) % MCV (80-100) fL MCH (25-34) pg MCHC (32-36) g/dL RDW Std Deviation (36.4-46.3) fL RDW Coeff of Nataly (11.5-14.5) % Plt Count (130-400) K/uL MPV (7.4-10.4) fL Immature Gran % (Auto) % Neut % (Auto) % Lymph % (Auto) % [place] % (Auto) % Eos % (Auto) % Baso % (Auto) % Immature Gran # (Auto) (0.00-0.02) K/uL Neut # (Auto) (1.4-6.5) K/uL Lymph # (Auto) (1.2-3.4) K/uL [place] # (Auto) (0.11-0.59) K/uL Eos # (Auto) (0-0.5) K/uL Baso # (Auto) (0-0.2) K/uL Sample Site POC pH (7.35-7.45) POC pCO2 (35-46) mmHg POC pO2 (80-95) mmHg POC HCO3 (19-24) kalyan/L POC Total CO2 (24-31) mEq/l POC Base Excess (-9-1.8) kalyan/L ABG pH (Temp Correct) (7.35-7.45) ABG pCO2 (Temp Corrct (35-46) mmHg POC ABG pO2 at Pt Temp POC ABG O2 Sat (90-95) % Marques Test O2 Delivery Device POC FiO2 % PEEP Sodium (136-145) mmol/L Potassium (3.5-5.1) mmol/L Chloride (98-107) mmol/L Carbon Dioxide (21-32) mmol/L Anion Gap (3-11) BUN (7-18) mg/dl Creatinine (0.6-1.2) mg/dl Est Cr Clr Drug Dosing ml/min Est GFR ( Amer) Est GFR (Non-Af Amer) BUN/Creatinine Ratio (10-20) Glucose (70-99) mg/dl POC Glucose 100 H 93 115 H (70-99) POC Lactic Acid Arter (0.36-1.25) mmol/L Calcium (8.5-10.1) mg/dl Magnesium (1.8-2.4) mg/dl 12/28/18 12/28/18 12/28/18 Range/Units 22:38 21:28 20:26 WBC (4.8-10.8) K/uL RBC (4.2-5.4) M/uL Hgb (12.0-16.0) g/dL Hct (37-47) % MCV (80-100) fL MCH (25-34) pg MCHC (32-36) g/dL RDW Std Deviation (36.4-46.3) fL RDW Coeff of Nataly (11.5-14.5) % Plt Count (130-400) K/uL MPV (7.4-10.4) fL Immature Gran % (Auto) % Neut % (Auto) % Lymph % (Auto) % [place] % (Auto) % Eos % (Auto) % Baso % (Auto) % Immature Gran # (Auto) (0.00-0.02) K/uL Neut # (Auto) (1.4-6.5) K/uL Lymph # (Auto) (1.2-3.4) K/uL [place] # (Auto) (0.11-0.59) K/uL Eos # (Auto) (0-0.5) K/uL Baso # (Auto) (0-0.2) K/uL Sample Site POC pH (7.35-7.45) POC pCO2 (35-46) mmHg POC pO2 (80-95) mmHg POC HCO3 (19-24) kalyan/L POC Total CO2 (24-31) mEq/l POC Base Excess (-9-1.8) kalyan/L ABG pH (Temp Correct) (7.35-7.45) ABG pCO2 (Temp Corrct (35-46) mmHg POC ABG pO2 at Pt Temp POC ABG O2 Sat (90-95) % Marques Test O2 Delivery Device POC FiO2 % PEEP Sodium (136-145) mmol/L Potassium (3.5-5.1) mmol/L Chloride (98-107) mmol/L Carbon Dioxide (21-32) mmol/L Anion Gap (3-11) BUN (7-18) mg/dl Creatinine (0.6-1.2) mg/dl Est Cr Clr Drug Dosing ml/min Est GFR ( Amer) Est GFR (Non-Af Amer) BUN/Creatinine Ratio (10-20) Glucose (70-99) mg/dl POC Glucose 111 H 99 105 H (70-99) POC Lactic Acid Arter (0.36-1.25) mmol/L Calcium (8.5-10.1) mg/dl Magnesium (1.8-2.4) mg/dl 12/28/18 12/28/18 12/28/18 Range/Units 18:23 17:40 16:51 WBC (4.8-10.8) K/uL RBC (4.2-5.4) M/uL Hgb (12.0-16.0) g/dL Hct (37-47) % MCV (80-100) fL MCH (25-34) pg MCHC (32-36) g/dL RDW Std Deviation (36.4-46.3) fL RDW Coeff of Nataly (11.5-14.5) % Plt Count (130-400) K/uL MPV (7.4-10.4) fL Immature Gran % (Auto) % Neut % (Auto) % Lymph % (Auto) % [place] % (Auto) % Eos % (Auto) % Baso % (Auto) % Immature Gran # (Auto) (0.00-0.02) K/uL Neut # (Auto) (1.4-6.5) K/uL Lymph # (Auto) (1.2-3.4) K/uL [place] # (Auto) (0.11-0.59) K/uL Eos # (Auto) (0-0.5) K/uL Baso # (Auto) (0-0.2) K/uL Sample Site POC pH (7.35-7.45) POC pCO2 (35-46) mmHg POC pO2 (80-95) mmHg POC HCO3 (19-24) kalyan/L POC Total CO2 (24-31) mEq/l POC Base Excess (-9-1.8) kalyan/L ABG pH (Temp Correct) (7.35-7.45) ABG pCO2 (Temp Corrct (35-46) mmHg POC ABG pO2 at Pt Temp POC ABG O2 Sat (90-95) % Marques Test O2 Delivery Device POC FiO2 % PEEP Sodium (136-145) mmol/L Potassium (3.5-5.1) mmol/L Chloride (98-107) mmol/L Carbon Dioxide (21-32) mmol/L Anion Gap (3-11) BUN (7-18) mg/dl Creatinine (0.6-1.2) mg/dl Est Cr Clr Drug Dosing ml/min Est GFR ( Amer) Est GFR (Non-Af Amer) BUN/Creatinine Ratio (10-20) Glucose (70-99) mg/dl POC Glucose 120 H 118 H 110 H (70-99) POC Lactic Acid Arter (0.36-1.25) mmol/L Calcium (8.5-10.1) mg/dl Magnesium (1.8-2.4) mg/dl 12/28/18 12/28/18 12/28/18 Range/Units 15:29 14:23 13:59 WBC (4.8-10.8) K/uL RBC (4.2-5.4) M/uL Hgb (12.0-16.0) g/dL Hct (37-47) % MCV (80-100) fL MCH (25-34) pg MCHC (32-36) g/dL RDW Std Deviation (36.4-46.3) fL RDW Coeff of Nataly (11.5-14.5) % Plt Count (130-400) K/uL MPV (7.4-10.4) fL Immature Gran % (Auto) % Neut % (Auto) % Lymph % (Auto) % [place] % (Auto) % Eos % (Auto) % Baso % (Auto) % Immature Gran # (Auto) (0.00-0.02) K/uL Neut # (Auto) (1.4-6.5) K/uL Lymph # (Auto) (1.2-3.4) K/uL [place] # (Auto) (0.11-0.59) K/uL Eos # (Auto) (0-0.5) K/uL Baso # (Auto) (0-0.2) K/uL Sample Site POC pH (7.35-7.45) POC pCO2 (35-46) mmHg POC pO2 (80-95) mmHg POC HCO3 (19-24) kalyan/L POC Total CO2 (24-31) mEq/l POC Base Excess (-9-1.8) kalyan/L ABG pH (Temp Correct) (7.35-7.45) ABG pCO2 (Temp Corrct (35-46) mmHg POC ABG pO2 at Pt Temp POC ABG O2 Sat (90-95) % Marques Test O2 Delivery Device POC FiO2 % PEEP Sodium (136-145) mmol/L Potassium (3.5-5.1) mmol/L Chloride (98-107) mmol/L Carbon Dioxide (21-32) mmol/L Anion Gap (3-11) BUN (7-18) mg/dl Creatinine (0.6-1.2) mg/dl Est Cr Clr Drug Dosing ml/min Est GFR ( Amer) Est GFR (Non-Af Amer) BUN/Creatinine Ratio (10-20) Glucose (70-99) mg/dl POC Glucose 106 H 116 H 113 H (70-99) POC Lactic Acid Arter (0.36-1.25) mmol/L Calcium (8.5-10.1) mg/dl Magnesium (1.8-2.4) mg/dl 12/28/18 12/28/18 12/28/18 Range/Units 12:46 11:38 11:04 WBC (4.8-10.8) K/uL RBC (4.2-5.4) M/uL Hgb (12.0-16.0) g/dL Hct (37-47) % MCV (80-100) fL MCH (25-34) pg MCHC (32-36) g/dL RDW Std Deviation (36.4-46.3) fL RDW Coeff of Nataly (11.5-14.5) % Plt Count (130-400) K/uL MPV (7.4-10.4) fL Immature Gran % (Auto) % Neut % (Auto) % Lymph % (Auto) % [place] % (Auto) % Eos % (Auto) % Baso % (Auto) % Immature Gran # (Auto) (0.00-0.02) K/uL Neut # (Auto) (1.4-6.5) K/uL Lymph # (Auto) (1.2-3.4) K/uL [place] # (Auto) (0.11-0.59) K/uL Eos # (Auto) (0-0.5) K/uL Baso # (Auto) (0-0.2) K/uL Sample Site POC pH (7.35-7.45) POC pCO2 (35-46) mmHg POC pO2 (80-95) mmHg POC HCO3 (19-24) kalyan/L POC Total CO2 (24-31) mEq/l POC Base Excess (-9-1.8) kalyan/L ABG pH (Temp Correct) (7.35-7.45) ABG pCO2 (Temp Corrct (35-46) mmHg POC ABG pO2 at Pt Temp POC ABG O2 Sat (90-95) % Marques Test O2 Delivery Device POC FiO2 % PEEP Sodium (136-145) mmol/L Potassium (3.5-5.1) mmol/L Chloride (98-107) mmol/L Carbon Dioxide (21-32) mmol/L Anion Gap (3-11) BUN (7-18) mg/dl Creatinine (0.6-1.2) mg/dl Est Cr Clr Drug Dosing ml/min Est GFR ( Amer) Est GFR (Non-Af Amer) BUN/Creatinine Ratio (10-20) Glucose (70-99) mg/dl POC Glucose 106 H 105 H 109 H (70-99) POC Lactic Acid Arter (0.36-1.25) mmol/L Calcium (8.5-10.1) mg/dl Magnesium (1.8-2.4) mg/dl 12/27/18 12/27/18 Range/Units 14:48 14:48 WBC (4.8-10.8) K/uL RBC (4.2-5.4) M/uL Hgb (12.0-16.0) g/dL Hct (37-47) % MCV (80-100) fL MCH (25-34) pg MCHC (32-36) g/dL RDW Std Deviation (36.4-46.3) fL RDW Coeff of Nataly (11.5-14.5) % Plt Count (130-400) K/uL MPV (7.4-10.4) fL Immature Gran % (Auto) % Neut % (Auto) % Lymph % (Auto) % [place] % (Auto) % Eos % (Auto) % Baso % (Auto) % Immature Gran # (Auto) (0.00-0.02) K/uL Neut # (Auto) (1.4-6.5) K/uL Lymph # (Auto) (1.2-3.4) K/uL [place] # (Auto) (0.11-0.59) K/uL Eos # (Auto) (0-0.5) K/uL Baso # (Auto) (0-0.2) K/uL Sample Site POC pH (7.35-7.45) POC pCO2 (35-46) mmHg POC pO2 (80-95) mmHg POC HCO3 (19-24) kalyan/L POC Total CO2 (24-31) mEq/l POC Base Excess (-9-1.8) kalyan/L ABG pH (Temp Correct) (7.35-7.45) ABG pCO2 (Temp Corrct (35-46) mmHg POC ABG pO2 at Pt Temp POC ABG O2 Sat (90-95) % Marques Test O2 Delivery Device POC FiO2 % PEEP Sodium (136-145) mmol/L Potassium (3.5-5.1) mmol/L Chloride (98-107) mmol/L Carbon Dioxide (21-32) mmol/L Anion Gap (3-11) BUN (7-18) mg/dl Creatinine (0.6-1.2) mg/dl Est Cr Clr Drug Dosing ml/min Est GFR ( Amer) Est GFR (Non-Af Amer) BUN/Creatinine Ratio (10-20) Glucose (70-99) mg/dl POC Glucose (70-99) POC Lactic Acid Arter Cancelled 1.60 H (0.36-1.25) mmol/L Calcium (8.5-10.1) mg/dl Magnesium (1.8-2.4) mg/dl Medications Administered Current Inpatient Medications Albuterol (Ventolin 0.5% 2.5mg/0.5ml) 2.5 mg NEB Q2H PRN PRN Reason: SOB/Wheeze Stop: 01/26/19 17:43 Albuterol (Duoneb) 3 ml NEB Q2D@1000,1400 KEV Stop: 01/28/19 10:44 Amikacin Sulfate (Amikin) 250 mg INH Q48H KEV Stop: 01/28/19 11:29 Dextrose (Dextrose 50%) 25 - 50 ml IV UD PRN; Protocol PRN Reason: Hypoglycemia Protocol Stop: 01/27/19 01:59 Ethambutol HCl (Myambutol) 800 mg PO HS KEV Stop: 01/26/19 20:59 Last Admin: 12/28/18 22:25 Dose: 800 mg Documented by: Ethambutol HCl (Myambutol) 200 mg PO HS KEV Stop: 01/26/19 20:59 Last Admin: 12/28/18 22:25 Dose: 200 mg Documented by: Glucagon (Glucagen) 1 mg IM UD PRN; Protocol PRN Reason: Hypoglycemia Protocol Stop: 01/27/19 01:59 Glucose (Glucose 40%) 15 - 30 gm PO UD PRN; Protocol PRN Reason: Hypoglycemia Protocol Stop: 01/27/19 01:59 Glucose (Dex4 Glucose) 4 - 8 tabs PO UD PRN; Protocol PRN Reason: Hypoglycemia Protocol Stop: 01/27/19 01:59 Heparin Sodium (Porcine) (Heparin Sodium (Porcine)) 5,000 units SQ BID [facility] Stop: 01/28/19 08:59 Last Admin: 12/29/18 08:45 Dose: 5,000 units Documented by: Azithromycin 500 mg/ Dextrose 255 mls @ 127.5 mls/hr IV Q24H [facility] Stop: 01/03/19 15:59 Last Infusion: 12/28/18 18:12 Dose: Infused Documented by: Cefepime HCl 2,000 mg/ Syringe 20 mls @ 5 mls/min IV Q8H KEV Stop: 01/03/19 18:59 Last Admin: 12/29/18 10:46 Dose: 5 mls/min Documented by: Insulin Human Regular 250 (units/ Sodium Chloride) 250 mls @ 1.4 mls/hr IV .Q24H KEV; Protocol Stop: 12/29/18 14:00 Last Titration: 12/29/18 08:00 Dose: Infused Documented by: Esmolol HCl (Brevibloc) 2,500 mg in 250 mls @ 20.4 mls/hr IV .[id number] KEV; Protocol Stop: 01/28/19 10:33 Last Admin: 12/29/18 10:49 Dose: 50 mcg/kg/min, 20.4 mls/hr Documented by: Potassium Chloride (K Jhoan / Wtr) 10 meq in 100 mls @ 100 mls/hr IV 1200,1300,1400,1500 KEV Stop: 12/29/18 18:00 Insulin Aspart (Novolog Flexpen) 0 units SC ACHS KEV Stop: 12/29/18 14:00 Last Admin: 12/29/18 08:16 Dose: Not Given Documented by: Insulin Aspart (Novolog Flexpen) 0 units SC Q4 KEV Stop: 01/28/19 15:59 Insulin Glargine (Lantus Solostar Pen) 10 units SC ONE ONE Stop: 12/29/18 12:01 Lansoprazole (Prevacid) 30 mg NG QAM KEV; Protocol Stop: 01/27/19 13:59 Last Admin: 12/28/18 14:10 Dose: 30 mg Documented by: Magnesium Oxide (Mag-Ox) 400 mg PO HS KEV Stop: 01/27/19 20:59 Last Admin: 12/28/18 22:25 Dose: 400 mg Documented by: Miscellaneous (Carbohydrates For Hypoglycemia) 15 - 30 gm PO PRN PRN PRN Reason: Hypoglycemia Treatment Stop: 01/27/19 01:59 Miscellaneous (Stop Order) 1 ea N/A ONE ONE Stop: 12/29/18 14:01 Miscellaneous Information (Cefepime Consult Active) 1 ea N/A UD PRN PRN Reason: Consult Stop: 01/26/19 16:02 Miscellaneous Information (Consult Glycemic Management Pharmacy) 1 ea N/A UD PRN PRN Reason: Consult Stop: 01/27/19 01:59 Prednisone (Prednisone) 40 mg NG DAILY@0900 [facility]; Taper Stop: 01/09/19 08:59 Prednisone (Prednisone) 10 mg NG DAILY [facility] [place] Stop: 02/08/19 08:59 Rifampin (Rifampin) 600 mg PO HS KEV Stop: 01/03/19 20:59 Last Admin: 12/28/18 22:25 Dose: 600 mg Documented by: PG Care Time/CCT Total # of Minutes Spent Total Time Spent with Patient: Total time spent is greater than 50% in coordination of care (as documented) at patient's floor/unit and/or counseling patient: Resident Activity Tracking Resident Involvement: Resident Care Provided Care Provided: Adult Hospital Medicine
[2018-12-29] MEDS ORDERED: dilTIAZem HCl 5 MG/ML 5 ML VIAL IV ONE (08:12)
[2018-12-29] MEDS ORDERED: dilTIAZem HCL 125 MG in DEXTROSE 5% 100 ML IV SCH (08:15)
[2018-12-29] MEDS: INSULIN ASPART 100 UNITS/ML 3 ML PEN SC SCH ×5 (08:16→23:44)
[2018-12-29] MEDS: HEPARIN SOD 5,000 UNIT/0.5 ML VIAL SQ SCH ×2 (08:45→20:44)
--- NOTE | 2018-12-29 08:45 | Critical Care Progress Note ---
Date of Service December 29, 2018 Assessment & Plan (1) Admitted to intensive care unit: Reason Critically Ill: Acute Hypoxic Hypercarbic Resp Failure in setting of severe COPD requiring mech ventilation NEURO Pt on Mech Vent Sedation with propofol gtt CV Afib- trial with dilt gtt and bolus x2 today still with RVR. Followed by IV Esmolol with improved rate control. AC with Heparin HTN- management as above. DC'd PO Dilt Slight trop elevation 0.019 likely 2/2 Type II MA PULM H/O Severe COPD- FEV1 of 31% per Pulmonary note from September 2017 Oxygen dependent at home on 4L NC , HS CPAP use Prednisone taper starting at 40 mg started today DuoNeb BID. Albuterol q2 hrs PRN. Nebs to be done 2 hrs before and after inhaled amikacin Acute hypoxic hypercapnic respiratory failure CTA Chest with severe pulmonary, stable L lung volume loss, bronchiectasis and parenchymal consolidation, small left pleural effusion, small right pleural effusion, right basilar atelectasis, RML and RLL bronchial wall thickening with mucus plugging Now extubated Bronch 12/28- cx growing pseudomonas Cont with Azithromycin, Cefepime. Also Ethambutol/Rifampin/Amikacin for MAC Failed SBT today. Will attempt to extubate again tomorrow ABD/GI H/O fatty liver disease- trend LFT's q72 hrs GI PPx: IV Protonix 40mg po daily Advanced diet /RENAL Amezcua catheter in place- Strict I/O's Replete electrolytes as needed ID DC'd Vancomycin. Cont Azithromycin, Cefepime and Amikacin/Ethambutol/Rifampin for MAC Blood cx NGTD. Sputum cx- gram neg bacilli ID Consult appreciated ENDO H/O DM. A1C 7.27 August 2018 ICU Hyperglycemia Protocol HEME Stable H/H- No concern for acute bleeding Cont trend daily CBC's LINES: PIVx3, Amezcua DVT Prophylaxis: SCD's, Heparin Conditional Code: DNR DISPO: ICU Supervising Physician Co-Signing Physician Notes Dr. Robertson was resident physician during care of patient. I separately evaluated patient for mondragon portions of the history and the exam. I was present during the critical portion of medical decision making, and I discussed the case with the resident. I generally agree with the findings and plan. Patient's respiratory reserve is improved today and she was able to be successfully liberated from the ventilator. We are having difficulty controlling her heart rate with diltiazem which does interact with rifampin. We had started esmolol which has given us significantly better control. She is passed her swallow study and we will start enteral metoprolol and discontinue the calcium channel jaun. Patient remains critically ill at this time. Subjective 78 yo F found in bed this AM on mech vent. No reported overnight events. Pt extubated today, sating well on NC. Tolerating PO intake. No other acute concerns or complaints. Review of Systems Review of Systems: All systems reviewed & are unremarkable except as noted in HPI & below Physical Exam Constitutional: WD/WN, vitals as above Eyes: PERRL, conjunctivae normal, anicteric sclerae ENMT: external ear and nose normal, oropharynx normal Respiratory: rhonchi worse at bases Cardiovascular: Rate/Rhythm: + tachycardic Gastrointestinal (Abdomen): normal bowel sounds, soft, nontender, no hepatosplenomegaly Skin: no rashes, warm and dry Results & Data Vital Signs (Past 12 Hours) Vital Signs Temp Pulse Resp BP Pulse Ox 12/29/18 08:00 36.8 C 143 H 96 12/29/18 07:07 114 H 12/29/18 07:00 132 H 112/88 92 12/29/18 05:00 145 H 26 H 97 12/29/18 04:00 37.0 C 102 H 133/98 97 12/29/18 03:30 105 H 130/76 96 12/29/18 03:00 119 H 131/71 97 12/29/18 02:30 88 128/81 97 12/29/18 02:25 101 H 18 97 12/29/18 02:00 103 H 129/86 95 12/29/18 01:30 98 H 121/67 97 12/29/18 01:00 89 130/73 97 12/29/18 00:30 105 H 140/85 97 12/29/18 00:00 36.8 C 105 H 140/83 97 12/28/18 23:45 103 H 17 97 12/28/18 23:30 113 H 123/89 96 12/28/18 23:00 112 H 119/94 97 12/28/18 22:30 98 H 139/83 96 12/28/18 22:00 109 H 132/96 96 12/28/18 21:30 118 H 128/85 96 12/28/18 21:00 118 H 141/64 H 96 Laboratory Results Laboratory Results - last 24 hr 12/27/18 12/27/18 12/28/18 14:48 14:48 13:59 WBC RBC Hgb Hct MCV MCH MCHC RDW Std Deviation RDW Coeff of Nataly Plt Count MPV Immature Gran % (Auto) Neut % (Auto) Lymph % (Auto) [place] % (Auto) Eos % (Auto) Baso % (Auto) Immature Gran # (Auto) Neut # (Auto) Lymph # (Auto) [place] # (Auto) Eos # (Auto) Baso # (Auto) Sample Site POC pH POC pCO2 POC pO2 POC HCO3 POC Total CO2 POC Base Excess ABG pH (Temp Correct) ABG pCO2 (Temp Corrct POC ABG pO2 at Pt Temp POC ABG O2 Sat [place] Test O2 Delivery Device POC FiO2 PEEP Sodium Potassium Chloride Carbon Dioxide Anion Gap BUN Creatinine Est Cr Clr Drug Dosing Est GFR ( Amer) Est GFR (Non-Af Amer) BUN/Creatinine Ratio Glucose POC Glucose 113 H POC Lactic Acid Arter 1.60 H Cancelled Calcium Phosphorus Magnesium Total Bilirubin Direct Bilirubin AST ALT Alkaline Phosphatase Total Protein Albumin 12/28/18 12/28/18 12/28/18 14:23 15:29 16:51 WBC RBC Hgb Hct MCV MCH MCHC RDW Std Deviation RDW Coeff of Nataly Plt Count MPV Immature Gran % (Auto) Neut % (Auto) Lymph % (Auto) [place] % (Auto) Eos % (Auto) Baso % (Auto) Immature Gran # (Auto) Neut # (Auto) Lymph # (Auto) [place] # (Auto) Eos # (Auto) Baso # (Auto) Sample Site POC pH POC pCO2 POC pO2 POC HCO3 POC Total CO2 POC Base Excess ABG pH (Temp Correct) ABG pCO2 (Temp Corrct POC ABG pO2 at Pt Temp POC ABG O2 Sat [place] Test O2 Delivery Device POC FiO2 PEEP Sodium Potassium Chloride Carbon Dioxide Anion Gap BUN Creatinine Est Cr Clr Drug Dosing Est GFR ( Amer) Est GFR (Non-Af Amer) BUN/Creatinine Ratio Glucose POC Glucose 116 H 106 H 110 H POC Lactic Acid Arter Calcium Phosphorus Magnesium Total Bilirubin Direct Bilirubin AST ALT Alkaline Phosphatase Total Protein Albumin 12/28/18 12/28/18 12/28/18 17:40 18:23 20:26 WBC RBC Hgb Hct MCV MCH MCHC RDW Std Deviation RDW Coeff of Nataly Plt Count MPV Immature Gran % (Auto) Neut % (Auto) Lymph % (Auto) [place] % (Auto) Eos % (Auto) Baso % (Auto) Immature Gran # (Auto) Neut # (Auto) Lymph # (Auto) [place] # (Auto) Eos # (Auto) Baso # (Auto) Sample Site POC pH POC pCO2 POC pO2 POC HCO3 POC Total CO2 POC Base Excess ABG pH (Temp Correct) ABG pCO2 (Temp Corrct POC ABG pO2 at Pt Temp POC ABG O2 Sat [place] Test O2 Delivery Device POC FiO2 PEEP Sodium Potassium Chloride Carbon Dioxide Anion Gap BUN Creatinine Est Cr Clr Drug Dosing Est GFR ( Amer) Est GFR (Non-Af Amer) BUN/Creatinine Ratio Glucose POC Glucose 118 H 120 H 105 H POC Lactic Acid Arter Calcium Phosphorus Magnesium Total Bilirubin Direct Bilirubin AST ALT Alkaline Phosphatase Total Protein Albumin 12/28/18 12/28/18 12/28/18 21:28 22:38 23:26 WBC RBC Hgb Hct MCV MCH MCHC RDW Std Deviation RDW Coeff of Nataly Plt Count MPV Immature Gran % (Auto) Neut % (Auto) Lymph % (Auto) [place] % (Auto) Eos % (Auto) Baso % (Auto) Immature Gran # (Auto) Neut # (Auto) Lymph # (Auto) [place] # (Auto) Eos # (Auto) Baso # (Auto) Sample Site POC pH POC pCO2 POC pO2 POC HCO3 POC Total CO2 POC Base Excess ABG pH (Temp Correct) ABG pCO2 (Temp Corrct POC ABG pO2 at Pt Temp POC ABG O2 Sat [place] Test O2 Delivery Device POC FiO2 PEEP Sodium Potassium Chloride Carbon Dioxide Anion Gap BUN Creatinine Est Cr Clr Drug Dosing Est GFR ( Amer) Est GFR (Non-Af Amer) BUN/Creatinine Ratio Glucose POC Glucose 99 111 H 115 H POC Lactic Acid Arter Calcium Phosphorus Magnesium Total Bilirubin Direct Bilirubin AST ALT Alkaline Phosphatase Total Protein Albumin 12/29/18 12/29/18 12/29/18 00:40 01:41 02:32 WBC RBC Hgb Hct MCV MCH MCHC RDW Std Deviation RDW Coeff of Nataly Plt Count MPV Immature Gran % (Auto) Neut % (Auto) Lymph % (Auto) [place] % (Auto) Eos % (Auto) Baso % (Auto) Immature Gran # (Auto) Neut # (Auto) Lymph # (Auto) [place] # (Auto) Eos # (Auto) Baso # (Auto) Sample Site POC pH POC pCO2 POC pO2 POC HCO3 POC Total CO2 POC Base Excess ABG pH (Temp Correct) ABG pCO2 (Temp Corrct POC ABG pO2 at Pt Temp POC ABG O2 Sat [place] Test O2 Delivery Device POC FiO2 PEEP Sodium Potassium Chloride Carbon Dioxide Anion Gap BUN Creatinine Est Cr Clr Drug Dosing Est GFR ( Amer) Est GFR (Non-Af Amer) BUN/Creatinine Ratio Glucose POC Glucose 93 100 H 110 H POC Lactic Acid Arter Calcium Phosphorus Magnesium Total Bilirubin Direct Bilirubin AST ALT Alkaline Phosphatase Total Protein Albumin 12/29/18 12/29/18 12/29/18 03:26 04:24 04:24 WBC 19.14 H RBC 3.46 L Hgb 9.9 L Hct 31.7 L MCV 91.6 MCH 28.6 MCHC 31.2 L RDW Std Deviation 47.2 H RDW Coeff of Nataly 14.3 Plt Count 272 MPV 9.5 Immature Gran % (Auto) 0.6 Neut % (Auto) 87.2 Lymph % (Auto) 5.6 [place] % (Auto) 6.5 Eos % (Auto) 0.0 Baso % (Auto) 0.1 Immature Gran # (Auto) 0.11 H Neut # (Auto) 16.69 H Lymph # (Auto) 1.08 L [place] # (Auto) 1.25 H Eos # (Auto) 0.00 Baso # (Auto) 0.01 Sample Site POC pH POC pCO2 POC pO2 POC HCO3 POC Total CO2 POC Base Excess ABG pH (Temp Correct) ABG pCO2 (Temp Corrct POC ABG pO2 at Pt Temp POC ABG O2 Sat [place] Test O2 Delivery Device POC FiO2 PEEP Sodium 141 Potassium 3.7 Chloride 100 Carbon Dioxide 34 H Anion Gap 7.0 BUN 23 H Creatinine 1.05 Est Cr Clr Drug Dosing 42.9 Est GFR ( Amer) 58.9 Est GFR (Non-Af Amer) 50.8 BUN/Creatinine Ratio 21.9 H Glucose 96 POC Glucose 101 H POC Lactic Acid Arter Calcium 8.0 L Phosphorus Magnesium 2.3 Total Bilirubin Direct Bilirubin AST ALT Alkaline Phosphatase Total Protein Albumin 12/29/18 12/29/18 12/29/18 04:26 05:36 05:49 WBC RBC Hgb Hct MCV MCH MCHC RDW Std Deviation RDW Coeff of Nataly Plt Count MPV Immature Gran % (Auto) Neut % (Auto) Lymph % (Auto) [place] % (Auto) Eos % (Auto) Baso % (Auto) Immature Gran # (Auto) Neut # (Auto) Lymph # (Auto) [place] # (Auto) Eos # (Auto) Baso # (Auto) Sample Site Art Line POC pH 7.55 H* POC pCO2 42 POC pO2 96 H POC HCO3 36 H POC Total CO2 37 H POC Base Excess 14.0 H ABG pH (Temp Correct) 7.544 H* ABG pCO2 (Temp Corrct 42 POC ABG pO2 at Pt Temp 98 POC ABG O2 Sat 98.0 H [place] Test NA O2 Delivery Device Ventilator POC FiO2 40 PEEP 5 Sodium Potassium Chloride Carbon Dioxide Anion Gap BUN Creatinine Est Cr Clr Drug Dosing Est GFR ( Amer) Est GFR (Non-Af Amer) BUN/Creatinine Ratio Glucose POC Glucose 97 88 POC Lactic Acid Arter Calcium Phosphorus Magnesium Total Bilirubin Direct Bilirubin AST ALT Alkaline Phosphatase Total Protein Albumin 12/29/18 12/29/18 12/29/18 06:33 07:55 10:04 WBC RBC Hgb Hct MCV MCH MCHC RDW Std Deviation RDW Coeff of Nataly Plt Count MPV Immature Gran % (Auto) Neut % (Auto) Lymph % (Auto) [place] % (Auto) Eos % (Auto) Baso % (Auto) Immature Gran # (Auto) Neut # (Auto) Lymph # (Auto) [place] # (Auto) Eos # (Auto) Baso # (Auto) Sample Site POC pH POC pCO2 POC pO2 POC HCO3 POC Total CO2 POC Base Excess ABG pH (Temp Correct) ABG pCO2 (Temp Corrct POC ABG pO2 at Pt Temp POC ABG O2 Sat [place] Test O2 Delivery Device POC FiO2 PEEP Sodium Potassium Chloride Carbon Dioxide Anion Gap BUN Creatinine Est Cr Clr Drug Dosing Est GFR ( Amer) Est GFR (Non-Af Amer) BUN/Creatinine Ratio Glucose POC Glucose 103 H 94 104 H POC Lactic Acid Arter Calcium Phosphorus Magnesium Total Bilirubin Direct Bilirubin AST ALT Alkaline Phosphatase Total Protein Albumin 12/29/18 12/29/18 12/29/18 11:13 11:13 12:27 WBC RBC Hgb Hct MCV MCH MCHC RDW Std Deviation RDW Coeff of Nataly Plt Count MPV Immature Gran % (Auto) Neut % (Auto) Lymph % (Auto) [place] % (Auto) Eos % (Auto) Baso % (Auto) Immature Gran # (Auto) Neut # (Auto) Lymph # (Auto) [place] # (Auto) Eos # (Auto) Baso # (Auto) Sample Site POC pH POC pCO2 POC pO2 POC HCO3 POC Total CO2 POC Base Excess ABG pH (Temp Correct) ABG pCO2 (Temp Corrct POC ABG pO2 at Pt Temp POC ABG O2 Sat [place] Test O2 Delivery Device POC FiO2 PEEP Sodium Potassium Chloride Carbon Dioxide Anion Gap BUN Creatinine Est Cr Clr Drug Dosing Est GFR ( Amer) Est GFR (Non-Af Amer) BUN/Creatinine Ratio Glucose POC Glucose 121 H POC Lactic Acid Arter Calcium Phosphorus 4.7 D Magnesium Total Bilirubin 1.6 H Direct Bilirubin 1.0 H AST 70 H ALT 45 Alkaline Phosphatase 197 H Total Protein 7.0 Albumin 2.3 L Medications Administered Current Inpatient Medications Albuterol (Ventolin 0.5% 2.5mg/0.5ml) 2.5 mg NEB Q2H PRN PRN Reason: SOB/Wheeze Stop: 01/26/19 17:43 Albuterol (Duoneb) 3 ml NEB Q2D@1000,1400 KEV Stop: 01/28/19 10:44 Last Admin: 12/29/18 14:05 Dose: 3 ml Documented by: Amikacin Sulfate (Amikin) 250 mg INH Q48H KEV Stop: 01/28/19 11:29 Last Admin: 12/29/18 12:22 Dose: 250 mg Documented by: Dextrose (Dextrose 50%) 25 - 50 ml IV UD PRN; Protocol PRN Reason: Hypoglycemia Protocol Stop: 01/27/19 01:59 Ethambutol HCl (Myambutol) 800 mg PO HS KEV Stop: 01/26/19 20:59 Last Admin: 12/28/18 22:25 Dose: 800 mg Documented by: Ethambutol HCl (Myambutol) 200 mg PO HS KEV Stop: 01/26/19 20:59 Last Admin: 12/28/18 22:25 Dose: 200 mg Documented by: Glucagon (Glucagen) 1 mg IM UD PRN; Protocol PRN Reason: Hypoglycemia Protocol Stop: 01/27/19 01:59 Glucose (Glucose 40%) 15 - 30 gm PO UD PRN; Protocol PRN Reason: Hypoglycemia Protocol Stop: 01/27/19 01:59 Glucose (Dex4 Glucose) 4 - 8 tabs PO UD PRN; Protocol PRN Reason: Hypoglycemia Protocol Stop: 01/27/19 01:59 Heparin Sodium (Porcine) (Heparin Sodium (Porcine)) 5,000 units SQ BID KEV Stop: 01/28/19 08:59 Last Admin: 12/29/18 08:45 Dose: 5,000 units Documented by: Azithromycin 500 mg/ Dextrose 255 mls @ 127.5 mls/hr IV Q24H KEV Stop: 01/03/19 15:59 Last Infusion: 12/28/18 18:12 Dose: Infused Documented by: Esmolol HCl (Brevibloc) 2,500 mg in 250 mls @ 20.4 mls/hr IV .[id number] KEV; Protocol Stop: 01/28/19 10:33 Last Admin: 12/29/18 10:49 Dose: 50 mcg/kg/min, 20.4 mls/hr Documented by: Potassium Chloride (K Jhoan / Wtr) 10 meq in 100 mls @ 100 mls/hr IV 1200,1300,1400,1500 KEV Stop: 12/29/18 18:00 Last Admin: 12/29/18 15:23 Dose: 100 mls/hr Documented by: Cefepime HCl 2,000 mg/ Syringe 20 mls @ 5 mls/min IV Q12H KEV; Protocol Stop: 01/03/19 18:59 Insulin Aspart (Novolog Flexpen) 0 units SC Q4 KEV Stop: 01/28/19 15:59 Insulin Glargine (Lantus Solostar Pen) 0 units SC HS KEV; Protocol Stop: 12/29/18 23:59 Lansoprazole (Prevacid) 30 mg NG QAM KEV; Protocol Stop: 01/27/19 13:59 Last Admin: 12/29/18 12:47 Dose: 30 mg Documented by: Magnesium Oxide (Mag-Ox) 400 mg PO HS KEV Stop: 01/27/19 20:59 Last Admin: 12/28/18 22:25 Dose: 400 mg Documented by: Miscellaneous (Carbohydrates For Hypoglycemia) 15 - 30 gm PO PRN PRN PRN Reason: Hypoglycemia Treatment Stop: 01/27/19 01:59 Miscellaneous Information (Cefepime Consult Active) 1 ea N/A UD PRN PRN Reason: Consult Stop: 01/26/19 16:02 Miscellaneous Information (Consult Glycemic Management Pharmacy) 1 ea N/A UD PRN PRN Reason: Consult Stop: 01/27/19 01:59 Prednisone (Prednisone) 40 mg NG DAILY@0900 KEV; Taper Stop: 01/09/19 08:59 Last Admin: 12/29/18 12:46 Dose: 40 mg Documented by: Prednisone (Prednisone) 10 mg NG DAILY KEV Stop: 02/08/19 08:59 Rifampin (Rifampin) 600 mg PO HS KEV Stop: 01/03/19 20:59 Last Admin: 12/28/18 22:25 Dose: 600 mg Documented by: PG Care Time/CCT Total # of Minutes Spent Total Time Spent with Patient: Total time spent is greater than 50% in coordination of care (as documented) at patient's floor/unit and/or counseling patient: Critical Care Time: Yes Total Critical Care Time: 55 Resident Activity Tracking Resident Involvement: Resident Care Provided Care Provided: Adult Hospital Medicine
[2018-12-29] MEDS ORDERED: VANCOMYCIN TROUGH ONE (09:30)
[2018-12-29] MEDS ORDERED: ESMOLOL / NSS 2,500 MG/250 ML BAG IV SCH (10:34)
[2018-12-29] MEDS: ALBUT/IPRATROP 3MG/0.5MG NEB 3 ML VIAL NEB SCH ×2 (10:45→14:05)
--- NOTE | 2018-12-29 11:48 | Pharmacy Report ---
Pharmacy Glycemic Short Note 2 - Date of Service December 29, 2018 - Glycemic Short BSG Results (Last 24 hours): 12/28/18 12/28/18 12/28/18 11:04 11:38 12:46 Glucose POC Glucose 109 H 105 H 106 H 12/28/18 12/28/18 12/28/18 13:59 14:23 15:29 Glucose POC Glucose 113 H 116 H 106 H 12/28/18 12/28/18 12/28/18 16:51 17:40 18:23 Glucose POC Glucose 110 H 118 H 120 H 12/28/18 12/28/18 12/28/18 20:26 21:28 22:38 Glucose POC Glucose 105 H 99 111 H 12/28/18 12/29/18 12/29/18 23:26 00:40 01:41 Glucose POC Glucose 115 H 93 100 H 12/29/18 12/29/18 12/29/18 02:32 03:26 04:24 Glucose 96 POC Glucose 110 H 101 H 12/29/18 12/29/18 12/29/18 04:26 05:36 06:33 Glucose POC Glucose 97 88 103 H 12/29/18 07:55 Glucose POC Glucose 94 OUTPATIENT ANTIDIABETIC REGIMEN: * Metformin 500mg PO BID * A1c = 7.4% 12/28/18 ASSESSMENT: 12/29 * BSGs well controlled with insulin drip. Drip running at 0.4-0.6unit/hr over last 6+ hrs * Pt extubated at this time, continuous tube feeds off, prednisone taper continues, ps aeruginosa in BAL cx * Will transition to SQ regimen at this time. * Basal dose will be based upon latest drip rates. Bolus dosing will be based upon wt and mod-severe stress level given current severity of illness and steroid provision 12/28 * Type 2 diabetic admitted for respiratory failure, hypercapneic resp failure w/ resp acidosis leading to intubation/mech ventilation * IV steroid therapy and abx therapy initiated for CAP with risk factors for resistant organism + treatment for possible RAUL pulm infxn * IV insulin drip initiated per ICU protocol for BSG > 220 * Insulin drip continues at this time at 1.85 units/hr, last 3 BSGs in goal range at this rate and monitoring may decrease to Q 2 hrs in near future * Pt failed SBT today and will remain intubated - reassess readiness for extubation tomorrow AM * Steroid regimen changed from Solu-medrol 30mg TID to Prednisone taper * Tube feedings planned for later today as pt not ready for extubation PLAN FOR INPATIENT GLYCEMIC CONTROL: * Lantus 10 units SQ x 1 STAT. Lantus 0-10 units this PM depending on BS units if BSG less than 140, 5 units if BSG 140-200, 10 units if BSG >200 * discontinue the insulin drip ~2 hrs after Lantus given * Novolog SQ Q 4 hrs * Goal range 110-140 * CF 25mg/dL/unit * CR 1 unit per 10gm CHO consumed PLAN FOR DISCHARGE: * to be determined
[2018-12-29] MEDS ORDERED: INSULIN GLARGINE SOLOSTAR 100 UNITS/ML 3 ML PEN SC ONE (12:00)
[2018-12-29] MEDS: AMIKACIN 250 MG/ML INH SCH (12:22)
[2018-12-29] MEDS: POTASSIUM CHLORIDE / WTR 10 MEQ/100 ML PLCT IV SCH ×4 (12:32→15:23)
[2018-12-29] MEDS: predniSONE 10 MG TABLET NG SCH (12:46)
[2018-12-29] MEDS: LANSOPRAZOLE 30 MG SOLTAB NG SCH (12:47)
[2018-12-29] MEDS ORDERED: Nursing to Pharmacy Communication ONE (13:07)
[2018-12-29] MEDS ORDERED: [UNRECOGNIZED DRUG - REMARK] ONE (14:00)
[2018-12-29 14:02] LABS: Albumin Level 2.3 gm/dl (3.4-5.0); Bilirubin,Total 1.6 mg/dl (0.2-1)
[2018-12-29] MEDS: AZITHROMYCIN 500 MG in DEXTROSE 5% 250 ML IV SCH (16:32)
--- NOTE | 2018-12-29 18:18 | Procedure Note ---
Procedure Note: Bronchoscopy Procedure Procedure date: December 27, 2018 Procedure: fiberoptic bronchoscopy Pre-procedure indication: Acute respiratory failure, bronchiectasis pulmonary infiltrate of left lower lobe Post-procedure Diagnosis: same as above Prior to Procedure: Informed Consent: The risks, benefits, indications, potential complications, and alternatives were explained to the patient's and informed consent obtained. Attending Staff: Zoila Cabral DO Resident/APC: Marcelo Skin Prep: Not applicable Anesthesia: Continuous infusion The identity of the patient was confirmed and a bedside time out was performed. Description of Procedure: Fiberoptic bronchoscopy was performed via endotracheal tube. Bronchioalveolar lavage left lower lobe was performed. Findings included: Minimal purulence was noted, thick secretions of the left lower lobe was suctioned. Washings were sent as well as a bronchial brushing of the left lower lobe Complications: None Specimens: Bronchial washings sent for culture and Gram stain, cytology, fungal elements, and AFB stain and culture. Estimated blood loss: Zero
[2018-12-29] MEDS ORDERED: METOPROLOL TARTRATE 25 MG TAB PO SCH ×2 (19:15→21:00)
[2018-12-29] MEDS ORDERED: AMIKACIN 250 MG/ML INH SCH (19:30)
[2018-12-29] MEDS: ETHAMBUTOL HCL 100 MG PO SCH (20:41)
[2018-12-29] MEDS: rifAMPin 300 MG CAPSULE PO SCH (20:41)
[2018-12-29] MEDS: MAGNESIUM OXIDE 400 MG TAB PO SCH (20:42)
[2018-12-29] MEDS: ETHAMBUTOL HCL 400 MG TAB PO SCH (20:42)
[2018-12-29] MEDS ORDERED: INSULIN GLARGINE SOLOSTAR 100 UNITS/ML 3 ML PEN SC SCH (21:00)
[2018-12-30] MEDS: INSULIN ASPART 100 UNITS/ML 3 ML PEN SC SCH ×6 (03:55→23:41)
[2018-12-30 05:51] LABS: Hematocrit (blood only) 35.8 % (37-47); Hemoglobin 10.4 g/dL (12.0-16.0); Mean Corpuscular Hemoglobin 28.4 pg (25-34); Mean Corpuscular Hgb Conc 29.1 g/dL (32-36); Mean Corpuscular Volume 97.8 fL (80-100); Mean Platelet Volume 9.6 fL (7.4-10.4); Platelet Count 223 K/uL (130-400); RDW Coefficient of Variation 14.5 % (11.5-14.5); RDW Standard Deviation 51.8 fL (36.4-46.3); Red Blood Count 3.66 M/uL (4.2-5.4); White Blood Count 13.98 K/uL (4.8-10.8)
[2018-12-30 05:52] LABS: Basophils # (auto) 0.01 K/uL (0-0.2); Basophils % (auto) 0.1 %; Eosinophils # (auto) 0.05 K/uL (0-0.5); Eosinophils % (auto) 0.4 %; Immature Granulocytes # (auto) 0.06 K/uL (0.00-0.02); Immature Granulocytes % (auto) 0.4 %; Lymphocytes # (auto) 1.41 K/uL (1.2-3.4); Lymphocytes % (auto) 10.1 %; Monocytes # (auto) 1.12 K/uL (0.11-0.59); Neutrophils # (auto) 11.33 K/uL (1.4-6.5)
[2018-12-30 06:17] LABS: BUN Creatinine Ratio 25.1 (10-20); Calcium 8.6 mg/dl (8.5-10.1); Est GFR (African American) 76.1; Est GFR (Non-African American) 65.6; Magnesium 2.4 mg/dl (1.8-2.4); Potassium 4.3 mmol/L (3.5-5.1)
--- NOTE | 2018-12-30 08:10 | Critical Care Progress Note ---
Date of Service December 30, 2018 Assessment & Plan (1) Admitted to intensive care unit: Reason Critically Ill: Acute Hypoxic Hypercarbic Resp Failure in setting of severe COPD requiring mech ventilation, now off and on NC NEURO ICU CAM: NEGATIVE Off sedatives now CV Afib- DC'd IV/PO Dilt (2/2 drug interaction with Rifampin) and IV Esmolol. Increased PO Metoprolol 25 mg BID . Started low dose Heparin Infusion today HTN- management as above. DC'd PO Dilt Slight trop elevation 0.019 likely 2/2 Type II CO PULM H/O Severe COPD- FEV1 of 31% per Pulmonary note from September 2017 Oxygen dependent at home on 4L NC , HS CPAP use Prednisone taper starting at 40 mg started 12/29 DuoNeb BID. Albuterol q2 hrs PRN. Nebs to be done 2 hrs before and after inhaled amikacin Acute hypoxic hypercapnic respiratory failure CTA Chest with severe pulmonary, stable L lung volume loss, bronchiectasis and parenchymal consolidation, small left pleural effusion, small right pleural effusion, right basilar atelectasis, RML and RLL bronchial wall thickening with mucus plugging Now extubated and on home 4L NC sating well Bronch 12/28- cx growing pseudomonas Cont with Cefepime. Also Azithromycin/Ethambutol/Rifampin/Amikacin for MAC ABD/GI H/O fatty liver disease- trend LFT's q72 hrs GI PPx: IV Protonix 40mg po daily Advanced diet /RENAL Amezcua catheter in place- Strict I/O's Replete electrolytes as needed ID DC'd Vancomycin. Cont Cefepime for Pseudomonas (7 day tx course). Azithromycin, Cefepime and Amikacin/Ethambutol/Rifampin for MAC Blood cx NGTD. Sputum cx- pseudomonas ID Consult appreciated ENDO H/O DM. A1C 7.27 August 2018 ICU Hyperglycemia Protocol HEME Stable H/H- No concern for acute bleeding Cont trend daily CBC's LINES: PIVx3, Amezcua DVT Prophylaxis: SCD's, Heparin DNR/DNI DISPO: Stable for downgrade out of ICU Supervising Physician Co-Signing Physician Notes Dr. Robertson was resident physician during care of patient. I separately evaluated patient for mondragon portions of the history and the exam. I was present during the critical portion of medical decision making, and I discussed the case with the resident. I generally agree with the findings and plan. Patient had spontaneously converted to normal sinus rhythm this morning until she ambulated to commode and then entered into A. fib with RVR with significant desaturation. She normally wears 4 L of oxygen at baseline. We will continue to treat pansensitive Pseudomonas with 7-day treatment course of cefepime. 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 The amikacin will also have efficacy against the Pseudomonas. Infectious disease is following. Given the antibiotic medications the patient is achieving rate control with beta blockade, we will increase that to 25 mg today, we have discontinued diltiazem as there is drug drug interactions with rifampin. There is been a very mild elevation in her AST, ALT remains the same this may be secondary to medications this will need to be trended. Give small supplementation of potassium today, patient has paroxysmal atrial fibrillation her anticoagulants will all have drug drug interactions, at this time we will initiate a heparin infusion, low-dose without bolus as the patient can trend up, she was recently rhythm controlled so I think the need for anti- coagulation to mitigate left atrial appendage thrombus risk is minimal. Once were able to achieve little more heart rate control, patient will be stable for downgrade out of the ICU. Subjective 78 yo F found in bed this AM in NAD. Tolerating well s/p extubation, sating well on NC 4L which is her home regimen. No reported overnight events. Tolerating PO intake. Was in NSR until she ambulated to commode and then entered into A. fib with RVR with significant desaturation. No other acute concerns or complaints. Review of Systems Review of Systems: All systems reviewed & are unremarkable except as noted in HPI & below Physical Exam Constitutional: WD/WN, vitals as above Eyes: PERRL, conjunctivae normal, anicteric sclerae ENMT: external ear and nose normal, oropharynx normal Respiratory: rhonchi at bases Cardiovascular: RRR, no murmur, no edema Rate/Rhythm: + tachycardic Gastrointestinal (Abdomen): normal bowel sounds, soft, nontender, no hepatosplenomegaly Skin: no rashes, warm and dry Results & Data Vital Signs (Past 12 Hours) Vital Signs Temp Pulse Resp BP Pulse Ox 12/30/18 07:32 75 12/30/18 07:00 92 H 164/78 H 96 12/30/18 02:00 93 H 139/91 97 12/30/18 01:52 103 H 162/83 H 97 12/30/18 01:30 95 12/30/18 01:07 100 H 179/99 H 98 12/30/18 01:00 101 H 176/112 H 99 12/30/18 00:31 101 H 170/85 H 97 12/30/18 00:30 96 H 94 12/30/18 00:01 94 H 147/94 H 98 12/30/18 00:00 36.7 C 105 H 22 98 12/29/18 23:30 96 H 137/70 99 12/29/18 23:00 101 H 18 146/84 H 100 12/29/18 22:31 94 H 99 12/29/18 22:30 92 H 20 136/70 98 12/29/18 22:08 94 H 134/84 99 12/29/18 22:00 86 24 100 12/29/18 21:30 98 H 24 97 12/29/18 21:00 92 H 26 H 98 12/29/18 20:30 94 H 22 96 Laboratory Results Laboratory Results - last 24 hr 12/29/18 12/29/18 12/29/18 10:04 11:13 12:27 WBC RBC Hgb Hct MCV MCH MCHC RDW Std Deviation RDW Coeff of Nataly Plt Count MPV Immature Gran % (Auto) Neut % (Auto) Lymph % (Auto) [place] % (Auto) Eos % (Auto) Baso % (Auto) Immature Gran # (Auto) Neut # (Auto) Lymph # (Auto) [place] # (Auto) Eos # (Auto) Baso # (Auto) Sodium Potassium Chloride Carbon Dioxide Anion Gap BUN Creatinine Est Cr Clr Drug Dosing Est GFR ( Amer) Est GFR (Non-Af Amer) BUN/Creatinine Ratio Glucose POC Glucose 104 H 121 H Calcium Magnesium Total Bilirubin 1.6 H Direct Bilirubin 1.0 H AST 70 H ALT 45 Alkaline Phosphatase 197 H Total Creatine Kinase Total Protein 7.0 Albumin 2.3 L 12/29/18 12/29/18 12/29/18 16:03 20:37 23:40 WBC RBC Hgb Hct MCV MCH MCHC RDW Std Deviation RDW Coeff of Nataly Plt Count MPV Immature Gran % (Auto) Neut % (Auto) Lymph % (Auto) [place] % (Auto) Eos % (Auto) Baso % (Auto) Immature Gran # (Auto) Neut # (Auto) Lymph # (Auto) [place] # (Auto) Eos # (Auto) Baso # (Auto) Sodium Potassium Chloride Carbon Dioxide Anion Gap BUN Creatinine Est Cr Clr Drug Dosing Est GFR ( Amer) Est GFR (Non-Af Amer) BUN/Creatinine Ratio Glucose POC Glucose 219 H 114 H 182 H Calcium Magnesium Total Bilirubin Direct Bilirubin AST ALT Alkaline Phosphatase Total Creatine Kinase Total Protein Albumin 12/30/18 12/30/18 12/30/18 03:52 05:17 05:17 WBC 13.98 H RBC 3.66 L Hgb 10.4 L Hct 35.8 L MCV 97.8 D MCH 28.4 MCHC 29.1 L RDW Std Deviation 51.8 H RDW Coeff of Nataly 14.5 Plt Count 223 MPV 9.6 Immature Gran % (Auto) 0.4 Neut % (Auto) 81.0 Lymph % (Auto) 10.1 [place] % (Auto) 8.0 Eos % (Auto) 0.4 Baso % (Auto) 0.1 Immature Gran # (Auto) 0.06 H Neut # (Auto) 11.33 H Lymph # (Auto) 1.41 [place] # (Auto) 1.12 H Eos # (Auto) 0.05 Baso # (Auto) 0.01 Sodium 141 Potassium 4.3 D Chloride 101 Carbon Dioxide 39 H Anion Gap 1.0 L BUN 21 H Creatinine 0.85 Est Cr Clr Drug Dosing 53.0 Est GFR ( Amer) 76.1 Est GFR (Non-Af Amer) 65.6 BUN/Creatinine Ratio 25.1 H Glucose 102 H POC Glucose 100 H Calcium 8.6 Magnesium 2.4 Total Bilirubin Direct Bilirubin AST ALT Alkaline Phosphatase Total Creatine Kinase Total Protein Albumin 12/30/18 12/30/18 05:17 07:24 WBC RBC Hgb Hct MCV MCH MCHC RDW Std Deviation RDW Coeff of Nataly Plt Count MPV Immature Gran % (Auto) Neut % (Auto) Lymph % (Auto) [place] % (Auto) Eos % (Auto) Baso % (Auto) Immature Gran # (Auto) Neut # (Auto) Lymph # (Auto) [place] # (Auto) Eos # (Auto) Baso # (Auto) Sodium Potassium Chloride Carbon Dioxide Anion Gap BUN Creatinine Est Cr Clr Drug Dosing Est GFR ( Amer) Est GFR (Non-Af Amer) BUN/Creatinine Ratio Glucose POC Glucose 101 H Calcium Magnesium Total Bilirubin Direct Bilirubin AST ALT Alkaline Phosphatase Total Creatine Kinase 52 Total Protein Albumin Medications Administered Current Inpatient Medications Albuterol (Ventolin 0.5% 2.5mg/0.5ml) 2.5 mg NEB Q2H PRN PRN Reason: SOB/Wheeze Stop: 01/26/19 17:43 Albuterol (Duoneb) 3 ml NEB Q2D@1000,1400 [facility] Stop: 01/28/19 10:44 Last Admin: 12/29/18 14:05 Dose: 3 ml Documented by: Amikacin Sulfate (Amikin) 250 mg INH Q48H K[facility] Stop: 01/28/19 11:29 Last Admin: 12/29/18 12:22 Dose: 250 mg Documented by: Dextrose (Dextrose 50%) 25 - 50 ml IV UD PRN; Protocol PRN Reason: Hypoglycemia Protocol Stop: 01/27/19 01:59 Ethambutol HCl (Myambutol) 800 mg PO HS KEV Stop: 01/26/19 20:59 Last Admin: 12/29/18 20:42 Dose: 800 mg Documented by: Ethambutol HCl (Myambutol) 200 mg PO HS [facility] Stop: 01/26/19 20:59 Last Admin: 12/29/18 20:41 Dose: 200 mg Documented by: Glucagon (Glucagen) 1 mg IM UD PRN; Protocol PRN Reason: Hypoglycemia Protocol Stop: 01/27/19 01:59 Glucose (Glucose 40%) 15 - 30 gm PO UD PRN; Protocol PRN Reason: Hypoglycemia Protocol Stop: 01/27/19 01:59 Glucose (Dex4 Glucose) 4 - 8 tabs PO UD PRN; Protocol PRN Reason: Hypoglycemia Protocol Stop: 01/27/19 01:59 Azithromycin 500 mg/ Dextrose 255 mls @ 127.5 mls/hr IV Q24H [facility] Stop: 01/03/19 15:59 Last Infusion: 12/29/18 18:52 Dose: Infused Documented by: Cefepime HCl 2,000 mg/ Syringe 20 mls @ 5 mls/min IV Q12H [facility]; Protocol Stop: 01/03/19 18:59 Last Admin: 12/30/18 09:53 Dose: 5 mls/min Documented by: Heparin Sodium/Dextrose (Heparin Sodium/Dextrose) 25,000 units in 500 mls @ 15 mls/hr IV .Q24H [facility]; Protocol Stop: 01/29/19 09:14 Last Admin: 12/30/18 09:16 Dose: 750 units/hr, 15 mls/hr Documented by: Insulin Aspart (Novolog Flexpen) 0 units SC Q4 [facility] Stop: 01/28/19 15:59 Last Admin: 12/30/18 12:05 Dose: 5 units Documented by: Lansoprazole (Prevacid) 30 mg NG QAM [facility]; Protocol Stop: 01/27/19 13:59 Last Admin: 12/30/18 08:52 Dose: 30 mg Documented by: Magnesium Oxide (Mag-Ox) 400 mg PO HS [facility] Stop: 01/27/19 20:59 Last Admin: 12/29/18 20:42 Dose: 400 mg Documented by: Metoprolol Tartrate (Lopressor) 25 mg PO BID [facility] Stop: 01/29/19 08:59 Last Admin: 12/30/18 08:50 Dose: 25 mg Documented by: Miscellaneous (Carbohydrates For Hypoglycemia) 15 - 30 gm PO PRN PRN PRN Reason: Hypoglycemia Treatment Stop: 01/27/19 01:59 Miscellaneous Information (Cefepime Consult Active) 1 ea N/A UD PRN PRN Reason: Consult Stop: 01/26/19 16:02 Miscellaneous Information (Consult Glycemic Management Pharmacy) 1 ea N/A UD PRN PRN Reason: Consult Stop: 01/27/19 01:59 Prednisone (Prednisone) 40 mg NG DAILY@0900 [facility]; Taper Stop: 01/09/19 08:59 Last Admin: 12/30/18 08:51 Dose: 40 mg Documented by: Prednisone (Prednisone) 10 mg NG DAILY [facility] Stop: 02/08/19 08:59 Rifampin (Rifampin) 600 mg PO HS [facility] Stop: 01/03/19 20:59 Last Admin: 12/29/18 20:41 Dose: 600 mg Documented by: PG Care Time/CCT Total # of Minutes Spent Total Time Spent with Patient: Total time spent is greater than 50% in coordination of care (as documented) at patient's floor/unit and/or counseling patient: Resident Activity Tracking Resident Involvement: Resident Care Provided Care Provided: Adult [facility]
[2018-12-30] MEDS ORDERED: POTASSIUM CHLORIDE 20 MEQ TABCR PO STA (08:15)
[2018-12-30] MEDS ORDERED: Heparin IV Low Dose WITH Bolus IV SCH (08:39)
[2018-12-30] MEDS: METOPROLOL TARTRATE 25 MG TAB PO SCH ×2 (08:50→20:08)
[2018-12-30] MEDS: predniSONE 10 MG TABLET NG SCH (08:51)
[2018-12-30] MEDS: LANSOPRAZOLE 30 MG SOLTAB NG SCH (08:52)
[2018-12-30] MEDS ORDERED: HEPARIN IV BOLUS 4,000 UNITS in SYRINGE 0 ML IV ONE ×2 (09:15→16:45)
[2018-12-30] MEDS: HEPARIN SODIUM/DEXTROSE 25,000 UNITS/500 ML BAG IV SCH (09:16)
[2018-12-30] MEDS: CEFEPIME 2,000 MG in SYRINGE 7.5 ML IV SCH ×2 (09:53→21:20)
[2018-12-30] MEDS ORDERED: INSULIN GLARGINE SOLOSTAR 100 UNITS/ML 3 ML PEN SC ONE (12:30)
--- NOTE | 2018-12-30 13:32 | Pharmacy Report ---
Pharmacy Glycemic Short Note 2 - Date of Service December 30, 2018 - Glycemic Short BSG Results (Last 24 hours): 12/29/18 12/29/18 12/29/18 10:04 12:27 16:03 Glucose POC Glucose 104 H 121 H 219 H 12/29/18 12/29/18 12/30/18 20:37 23:40 03:52 Glucose POC Glucose 114 H 182 H 100 H 12/30/18 12/30/18 05:17 07:24 Glucose 102 H POC Glucose 101 H OUTPATIENT ANTIDIABETIC REGIMEN: * Metformin 500mg PO BID * A1c = 7.4% 12/28/18 ASSESSMENT: 12/30 * Patient transitioned off drip yesterday, received 10 units of Lantus plus drip and 16 units of SSI * Fasting BSG this AM 102 mg/dL - continues on prednisone 40 mg daily then tapering * Would have expected higher fasting with steroids on board, waited until lunch to reassess Lantus needs. BSG at lunch 169 mg/dL - diet continued * Will order Lantus 15 units x 1 for now also tighten CR at dinner. Will keep at Q4 hr checks since steroids on board, may d/c tomorrow if BSGs stable 12/29 * BSGs well controlled with insulin drip. Drip running at 0.4-0.6unit/hr over last 6+ hrs * Pt extubated at this time, continuous tube feeds off, prednisone taper continues, ps aeruginosa in BAL cx * Will transition to SQ regimen at this time. * Basal dose will be based upon latest drip rates. Bolus dosing will be based upon wt and mod-severe stress level given current severity of illness and steroid provision 12/28 * Type 2 diabetic admitted for respiratory failure, hypercapneic resp failure w/ resp acidosis leading to intubation/mech ventilation * IV steroid therapy and abx therapy initiated for CAP with risk factors for resistant organism + treatment for possible RAUL pulm infxn * IV insulin drip initiated per ICU protocol for BSG > 220 * Insulin drip continues at this time at 1.85 units/hr, last 3 BSGs in goal range at this rate and monitoring may decrease to Q 2 hrs in near future * Pt failed SBT today and will remain intubated - reassess readiness for extubation tomorrow AM * Steroid regimen changed from Solu-medrol 30mg TID to Prednisone taper * Tube feedings planned for later today as pt not ready for extubation PLAN FOR INPATIENT GLYCEMIC CONTROL: * Lantus 15 units x 1 * Novolog SQ Q 4 hrs - tighten * Goal range 110-140 * CF 25mg/dL/unit * CR 1 unit per 8gm CHO consumed PLAN FOR DISCHARGE: * to be determined
--- NOTE | 2018-12-30 15:55 | Family Medicine Progress Note ---
Date of Service December 30, 2018 Assessment & Plan (1) COPD (chronic obstructive pulmonary disease): Elderly female with past medical history of severe COPD on 4 L at home, pAF, HTN, T2DM p/w acute hypoxic hypercapnic respiratory failure requiring ICU stay with intubation. COPD exacerbation Likely secondary to pneumonia. Patient status post bronchoscopy, will follow cultures. -Prednisone taper starting at 40 mg, albuterol and DuoNebs as needed -Infectious disease consulted -Continue amikacin, ethambutol, rifampin for RAUL suspect on CT findings. DC as appropriate shiva. -Cefepime for Pseudomonas in sputum culture -Monitor renal function while on amikacin Acute hypoxic hypercapnic respiratory failure -Extubated on 12/30 -Pt continuing to retain CO2 overnight as she does not use CPAP/BIPAP -Reiterated to patient necessity of using overnight Paroxysmal A. fib with RVR -Converted CCBs to lopressor BID and heparin drip for now -Will need to discuss anticoagulation options. Due to current antibiotics, unable to use DOACs. -Will try to wean abx with ID assistance Hypertension -Converted CCB to lopressor 25 BID History of fatty liver disease -Trend LFTs and follow as outpatient Diabetes type 2 -Last A1c 7.27 August 2018 -Glycemic consult; ISS FENa: T2DM Code Status: DNR/DNI DVT PPX: low dose heparin PT/OT: TBD Dispo: ICU (2) Acute respiratory failure: (3) Pneumonia: (4) Diabetes mellitus type 2, uncontrolled: (5) Dyslipidemia: Supervising Physician Co-Signing Physician Notes Attending attestation Pt seen and examined in concert with Dr. Daniel. In agreement with the documented findings as noted in the resident documentation with any exceptions or additions as noted here. Gradual improvement in resting shortness of breath overall, though with new onset AF with RVR while getting up from bed today. On examination, S1/S2 nl IRR/IRR w/o MCG appreciated, diffusely rhonchorus breath sounds with decreases at b/l bases. Abd NT/ND BS +ve Acute hypoxic respiratory failure 2/2 pneumonia in the setting of O2 dependent COPD s/p extubation - ID consultation - tolerating 4LNC (~baseline). Bronch wash culture shows psuedomonas. Current regimen includes azithromycin, cefepime, amikacin, ethambutol, rifampin. Prednisone 50mg (10 daily + 40 daily) with intended slow taper. ID input on regimen manipulation in light of current culture results welcomed. Atrial fibrillation with RVR - responded partially to metoprolol 25mg BID with stable BP. Avoiding CCB w/ rifampin. Consider increase to 50mg BID if no resolution. Heparin drip now, but will need d/w pt and family re: longterm AC goals in the setting of GIB previously and CVA risk. Transaminitis - trend CMP DMII - continue monitoring BMP, adjust insulin coverage Else see resident documentation as noted. Subjective PT extubated, no complaints. Does not recall events prior to admission, would like to go home. notes short term memory problems. Denies palpitations, chest pain, but does report cough and some dyspnea on exertion. Unsteady on feet. Review of Systems Review of Systems: All systems reviewed & are unremarkable except as noted in HPI & below Constitutional: + fatigue, + malaise and + weakness Respiratory: + cough, + dyspnea, + dyspnea on exertion and + wheezing Cardiovascular: no chest pain and no palpitations Gastrointestinal: no abdominal pain Physical Exam Constitutional: WD/WN, vitals as above comfortable and + mechanically ventilated; no acute distress Eyes: PERRL, conjunctivae normal, anicteric sclerae ENMT: external ear and nose normal, oropharynx normal Neck: trachea midline, no thyromegaly neck nontender Respiratory: no respiratory distress and does not use accessory muscles Auscultation: + diminished lung sounds, + crackles and + rhonchi Cardiovascular: RRR, no murmur, no edema Rate/Rhythm: regular rate, regular rhythm and + tachycardic Heart Sounds: normal S1 and normal S2; no gallop, no murmur and no cardiac rub Vessels: normal peripheral pulses; no JVD Gastrointestinal (Abdomen): normal bowel sounds, soft, nontender, no hepatosplenomegaly Musculoskeletal: no cyanosis or clubbing, extremities motor strength 5/5 Spine: thoracic spine normal to inspection and lumbar spine normal to inspection; no cervical spinal tenderness Skin: no rashes, warm and dry normal turgor; no lesions Neurologic: patellar DTR's 2+ bilat, sensation intact no focal motor deficits Psychiatric: A+Ox3, euthymic affect Orientation: cooperative Lymphatic: no cervical or axillary lymphadenopathy no inguinal lymph adenopathy Results & Data Vital Signs (Past 12 Hours) Vital Signs Temp Pulse Resp BP Pulse Ox 12/30/18 14:55 85 12/30/18 13:00 114 H 27 H 146/64 H 99 12/30/18 12:00 98.1 F 103 H 29 H 157/91 H 94 12/30/18 11:00 83 31 H 134/84 97 12/30/18 10:00 99 H 35 H 150/86 H 96 12/30/18 09:00 101 H 29 H 152/83 H 95 12/30/18 08:00 98.1 F 125 H 12/30/18 07:32 75 12/30/18 07:00 92 H 164/78 H 96 Laboratory Results 12/30/18 12/30/18 12/30/18 Range/Units 16:21 15:05 11:20 WBC (4.8-10.8) K/uL RBC (4.2-5.4) M/uL Hgb (12.0-16.0) g/dL Hct (37-47) % MCV (80-100) fL MCH (25-34) pg MCHC (32-36) g/dL RDW Std Deviation (36.4-46.3) fL RDW Coeff of Nataly (11.5-14.5) % Plt Count (130-400) K/uL MPV (7.4-10.4) fL Immature Gran % (Auto) % Neut % (Auto) % Lymph % (Auto) % [place] % (Auto) % Eos % (Auto) % Baso % (Auto) % Immature Gran # (Auto) (0.00-0.02) K/uL Neut # (Auto) (1.4-6.5) K/uL Lymph # (Auto) (1.2-3.4) K/uL [place] # (Auto) (0.11-0.59) K/uL Eos # (Auto) (0-0.5) K/uL Baso # (Auto) (0-0.2) K/uL APTT 30.8 (21.0-31.0) Seconds PTT Ratio 1.1 Sodium (136-145) mmol/L Potassium (3.5-5.1) mmol/L Chloride (98-107) mmol/L Carbon Dioxide (21-32) mmol/L Anion Gap (3-11) BUN (7-18) mg/dl Creatinine (0.6-1.2) mg/dl Est Cr Clr Drug Dosing ml/min Est GFR ( Amer) Est GFR (Non-Af Amer) BUN/Creatinine Ratio (10-20) Glucose (70-99) mg/dl POC Glucose 157 H 169 H (70-99) Calcium (8.5-10.1) mg/dl Magnesium (1.8-2.4) mg/dl Total Creatine Kinase (26-192) U/L 12/30/18 12/30/18 12/30/18 Range/Units 07:24 05:17 05:17 WBC (4.8-10.8) K/uL RBC (4.2-5.4) M/uL Hgb (12.0-16.0) g/dL Hct (37-47) % MCV (80-100) fL MCH (25-34) pg MCHC (32-36) g/dL RDW Std Deviation (36.4-46.3) fL RDW Coeff of Nataly (11.5-14.5) % Plt Count (130-400) K/uL MPV (7.4-10.4) fL Immature Gran % (Auto) % Neut % (Auto) % Lymph % (Auto) % [place] % (Auto) % Eos % (Auto) % Baso % (Auto) % Immature Gran # (Auto) (0.00-0.02) K/uL Neut # (Auto) (1.4-6.5) K/uL Lymph # (Auto) (1.2-3.4) K/uL [place] # (Auto) (0.11-0.59) K/uL Eos # (Auto) (0-0.5) K/uL Baso # (Auto) (0-0.2) K/uL APTT (21.0-31.0) Seconds PTT Ratio Sodium 141 (136-145) mmol/L Potassium 4.3 D (3.5-5.1) mmol/L Chloride 101 (98-107) mmol/L Carbon Dioxide 39 H (21-32) mmol/L Anion Gap 1.0 L (3-11) BUN 21 H (7-18) mg/dl Creatinine 0.85 (0.6-1.2) mg/dl Est Cr Clr Drug Dosing 53.0 ml/min Est GFR ( Amer) 76.1 Est GFR (Non-Af Amer) 65.6 BUN/Creatinine Ratio 25.1 H (10-20) Glucose 102 H (70-99) mg/dl POC Glucose 101 H (70-99) Calcium 8.6 (8.5-10.1) mg/dl Magnesium 2.4 (1.8-2.4) mg/dl Total Creatine Kinase 52 (26-192) U/L 12/30/18 12/30/18 12/29/18 Range/Units 05:17 03:52 23:40 WBC 13.98 H (4.8-10.8) K/uL RBC 3.66 L (4.2-5.4) M/uL Hgb 10.4 L (12.0-16.0) g/dL Hct 35.8 L (37-47) % MCV 97.8 D (80-100) fL MCH 28.4 (25-34) pg MCHC 29.1 L (32-36) g/dL RDW Std Deviation 51.8 H (36.4-46.3) fL RDW Coeff of Nataly 14.5 (11.5-14.5) % Plt Count 223 (130-400) K/uL MPV 9.6 (7.4-10.4) fL Immature Gran % (Auto) 0.4 % Neut % (Auto) 81.0 % Lymph % (Auto) 10.1 % [place] % (Auto) 8.0 % Eos % (Auto) 0.4 % Baso % (Auto) 0.1 % Immature Gran # (Auto) 0.06 H (0.00-0.02) K/uL Neut # (Auto) 11.33 H (1.4-6.5) K/uL Lymph # (Auto) 1.41 (1.2-3.4) K/uL [place] # (Auto) 1.12 H (0.11-0.59) K/uL Eos # (Auto) 0.05 (0-0.5) K/uL Baso # (Auto) 0.01 (0-0.2) K/uL APTT (21.0-31.0) Seconds PTT Ratio Sodium (136-145) mmol/L Potassium (3.5-5.1) mmol/L Chloride (98-107) mmol/L Carbon Dioxide (21-32) mmol/L Anion Gap (3-11) BUN (7-18) mg/dl Creatinine (0.6-1.2) mg/dl Est Cr Clr Drug Dosing ml/min Est GFR ( Amer) Est GFR (Non-Af Amer) BUN/Creatinine Ratio (10-20) Glucose (70-99) mg/dl POC Glucose 100 H 182 H (70-99) Calcium (8.5-10.1) mg/dl Magnesium (1.8-2.4) mg/dl Total Creatine Kinase (26-192) U/L 12/29/18 Range/Units 20:37 WBC (4.8-10.8) K/uL RBC (4.2-5.4) M/uL Hgb (12.0-16.0) g/dL Hct (37-47) % MCV (80-100) fL MCH (25-34) pg MCHC (32-36) g/dL RDW Std Deviation (36.4-46.3) fL RDW Coeff of Nataly (11.5-14.5) % Plt Count (130-400) K/uL MPV (7.4-10.4) fL Immature Gran % (Auto) % Neut % (Auto) % Lymph % (Auto) % [place] % (Auto) % Eos % (Auto) % Baso % (Auto) % Immature Gran # (Auto) (0.00-0.02) K/uL Neut # (Auto) (1.4-6.5) K/uL Lymph # (Auto) (1.2-3.4) K/uL [place] # (Auto) (0.11-0.59) K/uL Eos # (Auto) (0-0.5) K/uL Baso # (Auto) (0-0.2) K/uL APTT (21.0-31.0) Seconds PTT Ratio Sodium (136-145) mmol/L Potassium (3.5-5.1) mmol/L Chloride (98-107) mmol/L Carbon Dioxide (21-32) mmol/L Anion Gap (3-11) BUN (7-18) mg/dl Creatinine (0.6-1.2) mg/dl Est Cr Clr Drug Dosing ml/min Est GFR ( Amer) Est GFR (Non-Af Amer) BUN/Creatinine Ratio (10-20) Glucose (70-99) mg/dl POC Glucose 114 H (70-99) Calcium (8.5-10.1) mg/dl Magnesium (1.8-2.4) mg/dl Total Creatine Kinase (26-192) U/L Medications Administered Current Inpatient Medications Albuterol (Ventolin 0.5% 2.5mg/0.5ml) 2.5 mg NEB Q2H PRN PRN Reason: SOB/Wheeze Stop: 01/26/19 17:43 Albuterol (Duoneb) 3 ml NEB Q2D@1000,1400 [facility] Stop: 01/28/19 10:44 Last Admin: 12/29/18 14:05 Dose: 3 ml Documented by: Amikacin Sulfate (Amikin) 250 mg INH Q48H [facility] Stop: 01/28/19 11:29 Last Admin: 12/29/18 12:22 Dose: 250 mg Documented by: Dextrose (Dextrose 50%) 25 - 50 ml IV UD PRN; Protocol PRN Reason: Hypoglycemia Protocol Stop: 01/27/19 01:59 Ethambutol HCl (Myambutol) 800 mg PO HS [facility] Stop: 01/26/19 20:59 Last Admin: 12/29/18 20:42 Dose: 800 mg Documented by: Ethambutol HCl (Myambutol) 200 mg PO HS [facility] Stop: 01/26/19 20:59 Last Admin: 12/29/18 20:41 Dose: 200 mg Documented by: Glucagon (Glucagen) 1 mg IM UD PRN; Protocol PRN Reason: Hypoglycemia Protocol Stop: 01/27/19 01:59 Glucose (Glucose 40%) 15 - 30 gm PO UD PRN; Protocol PRN Reason: Hypoglycemia Protocol Stop: 01/27/19 01:59 Glucose (Dex4 Glucose) 4 - 8 tabs PO UD PRN; Protocol PRN Reason: Hypoglycemia Protocol Stop: 01/27/19 01:59 Azithromycin 500 mg/ Dextrose 255 mls @ 127.5 mls/hr IV Q24H [facility] Stop: 01/03/19 15:59 Last Admin: 12/30/18 17:06 Dose: 127.5 mls/hr Documented by: Cefepime HCl 2,000 mg/ Syringe 20 mls @ 5 mls/min IV Q12H [facility]; Protocol Stop: 01/03/19 18:59 Last Admin: 12/30/18 09:53 Dose: 5 mls/min Documented by: Heparin Sodium/Dextrose (Heparin Sodium/Dextrose) 25,000 units in 500 mls @ 18 mls/hr IV .Q24H [facility]; Protocol Stop: 01/29/19 09:14 Last Titration: 12/30/18 16:10 Dose: 900 units/hr, 18 mls/hr Documented by: Insulin Aspart (Novolog Flexpen) 0 units SC Q4 [facility] Stop: 01/28/19 15:59 Last Admin: 12/30/18 17:11 Dose: 10 units Documented by: Lansoprazole (Prevacid) 30 mg NG QAM [facility]; Protocol Stop: 01/27/19 13:59 Last Admin: 12/30/18 08:52 Dose: 30 mg Documented by: Magnesium Oxide (Mag-Ox) 400 mg PO [facility] Stop: 01/27/19 20:59 Last Admin: 12/29/18 20:42 Dose: 400 mg Documented by: Metoprolol Tartrate (Lopressor) 25 mg PO BID [facility] Stop: 01/29/19 08:59 Last Admin: 12/30/18 08:50 Dose: 25 mg Documented by: Miscellaneous (Carbohydrates For Hypoglycemia) 15 - 30 gm PO PRN PRN PRN Reason: Hypoglycemia Treatment Stop: 01/27/19 01:59 Miscellaneous Information (Cefepime Consult Active) 1 ea N/A UD PRN PRN Reason: Consult Stop: 01/26/19 16:02 Miscellaneous Information (Consult Glycemic Management Pharmacy) 1 ea N/A UD PRN PRN Reason: Consult Stop: 01/27/19 01:59 Prednisone (Prednisone) 40 mg NG DAILY@0900 [facility]; Taper Stop: 01/09/19 08:59 Last Admin: 12/30/18 08:51 Dose: 40 mg Documented by: Prednisone (Prednisone) 10 mg NG DAILY [facility] Stop: 02/08/19 08:59 Rifampin (Rifampin) 600 mg PO HS [facility] Stop: 01/03/19 20:59 Last Admin: 12/29/18 20:41 Dose: 600 mg Documented by: PG Care Time/CCT Total # of Minutes Spent Total Time Spent with Patient: Total time spent is greater than 50% in coordination of care (as documented) at patient's floor/unit and/or counseling patient: Resident Activity Tracking Resident Involvement: Resident Care Provided Care Provided: Adult Hospital Medicine (1) Acute respiratory failure Respiratory failure complication: unspecified whether with hypoxia or hypercapnia Qualified Code(s): J96.00 - Acute respiratory failure, unspecified whether with hypoxia or hypercapnia
[2018-12-30 15:56] LABS: Partial Thromboplastin Ratio 1.1; Partial Thromboplastin Time 30.8 Seconds (21.0-31.0)
[2018-12-30] MEDS: AZITHROMYCIN 500 MG in DEXTROSE 5% 250 ML IV SCH (17:06)
[2018-12-30] MEDS: ETHAMBUTOL HCL 400 MG TAB PO SCH (20:08)
[2018-12-30] MEDS: MAGNESIUM OXIDE 400 MG TAB PO SCH (20:08)
[2018-12-30] MEDS: rifAMPin 300 MG CAPSULE PO SCH (20:09)
[2018-12-30] MEDS: ETHAMBUTOL HCL 100 MG PO SCH (20:09)
[2018-12-30 21:00] LABS: Partial Thromboplastin Time 53.5 Seconds (21.0-31.0)
[2018-12-31] MEDS: INSULIN ASPART 100 UNITS/ML 3 ML PEN SC SCH ×5 (03:58→20:48)
[2018-12-31 06:18] LABS: Partial Thromboplastin Ratio 1.3; Partial Thromboplastin Time 34.8 Seconds (21.0-31.0)
[2018-12-31 06:31] LABS: Hematocrit (blood only) 36.5 % (37-47); Hemoglobin 10.6 g/dL (12.0-16.0); Mean Corpuscular Hemoglobin 28.7 pg (25-34); Mean Corpuscular Volume 98.9 fL (80-100); Mean Platelet Volume 9.8 fL (7.4-10.4); Platelet Count 235 K/uL (130-400); RDW Standard Deviation 49.9 fL (36.4-46.3); Red Blood Count 3.69 M/uL (4.2-5.4); White Blood Count 12.24 K/uL (4.8-10.8)
[2018-12-31 06:51] LABS: BUN Creatinine Ratio 26.7 (10-20); Calcium 8.6 mg/dl (8.5-10.1); Creatinine Clr Calc Pharmacy 51.2 ml/min; Est GFR (African American) 72.9; Est GFR (Non-African American) 62.9; Potassium 4.3 mmol/L (3.5-5.1)
[2018-12-31] MEDS ORDERED: HEPARIN IV BOLUS 4,000 UNITS in SYRINGE 0 ML IV ONE ×2 (07:45→15:26)
[2018-12-31] MEDS: LANSOPRAZOLE 30 MG SOLTAB NG SCH (07:48)
[2018-12-31] MEDS: predniSONE 10 MG TABLET NG SCH (07:48)
[2018-12-31] MEDS: METOPROLOL TARTRATE 25 MG TAB PO SCH ×2 (07:48→20:44)
[2018-12-31] MEDS: CEFEPIME 2,000 MG in SYRINGE 7.5 ML IV SCH ×2 (09:41→21:11)
[2018-12-31] MEDS: HEPARIN SODIUM/DEXTROSE 25,000 UNITS/500 ML BAG IV SCH (09:41)
[2018-12-31] MEDS: ALBUT/IPRATROP 3MG/0.5MG NEB 3 ML VIAL NEB SCH ×2 (10:09→14:02)
--- NOTE | 2018-12-31 10:20 | Pharmacy Report ---
Pharmacy Glycemic Short Note 2 - Date of Service December 31, 2018 - Glycemic Short BSG Results (Last 24 hours): 12/30/18 12/30/18 12/30/18 11:20 16:21 20:22 Glucose POC Glucose 169 H 157 H 132 H 12/30/18 12/31/18 12/31/18 23:35 03:51 05:35 Glucose 92 POC Glucose 79 71 12/31/18 12/31/18 05:53 07:15 Glucose POC Glucose 107 H 81 OUTPATIENT ANTIDIABETIC REGIMEN: * Metformin 500mg PO BID * A1c = 7.4% 12/28/18 ASSESSMENT: 12/31 * Patient received total of 34 units of insulin yesterday, of which 15 were basal insulin * Fasting BSG this AM 92 mg/dL - will scale back on Lantus for today, will wait to ensure BSGs trending up first * Lunchtime BSG trending up to 200s, continue same CF/CR but added Lantus back on - did small reduction from 15 units to 13 units as BSGs were in 70s overnight 12/30 * Patient transitioned off drip yesterday, received 10 units of Lantus plus drip and 16 units of SSI * Fasting BSG this AM 102 mg/dL - continues on prednisone 40 mg daily then tapering * Would have expected higher fasting with steroids on board, waited until lunch to reassess Lantus needs. BSG at lunch 169 mg/dL - diet continued * Will order Lantus 15 units x 1 for now also tighten CR at dinner. Will keep at Q4 hr checks since steroids on board, may d/c tomorrow if BSGs stable 12/29 * BSGs well controlled with insulin drip. Drip running at 0.4-0.6unit/hr over last 6+ hrs * Pt extubated at this time, continuous tube feeds off, prednisone taper continues, ps aeruginosa in BAL cx * Will transition to SQ regimen at this time. * Basal dose will be based upon latest drip rates. Bolus dosing will be based upon wt and mod-severe stress level given current severity of illness and steroid provision 12/28 * Type 2 diabetic admitted for respiratory failure, hypercapneic resp failure w/ resp acidosis leading to intubation/mech ventilation * IV steroid therapy and abx therapy initiated for CAP with risk factors for resistant organism + treatment for possible RAUL pulm infxn * IV insulin drip initiated per ICU protocol for BSG > 220 * Insulin drip continues at this time at 1.85 units/hr, last 3 BSGs in goal range at this rate and monitoring may decrease to Q 2 hrs in near future * Pt failed SBT today and will remain intubated - reassess readiness for extubation tomorrow AM * Steroid regimen changed from Solu-medrol 30mg TID to Prednisone taper * Tube feedings planned for later today as pt not ready for extubation PLAN FOR INPATIENT GLYCEMIC CONTROL: * Lantus 13x1, then daily * Novolog SQ ACHS * Goal range 110-140 * CF 25 mg/dL/unit * CR 1 unit per 8 gm CHO consumed 8
[2018-12-31] MEDS ORDERED: INSULIN GLARGINE SOLOSTAR 100 UNITS/ML 3 ML PEN SC SCH (12:00)
[2018-12-31] MEDS: AMIKACIN 250 MG/ML INH SCH (12:10)
[2018-12-31 14:49] LABS: Partial Thromboplastin Ratio 1.5; Partial Thromboplastin Time 40.7 Seconds (21.0-31.0)
[2018-12-31] MEDS: AZITHROMYCIN 500 MG in DEXTROSE 5% 250 ML IV SCH (16:13)
--- NOTE | 2018-12-31 16:16 | Family Medicine Progress Note ---
Date of Service December 31, 2018 Assessment & Plan (1) COPD (chronic obstructive pulmonary disease): Elderly female with past medical history of severe COPD on 4L at home, HTN, T2DM p/w acute hypoxic hypercapnic respiratory failure requiring ICU stay with intubation. COPD exacerbation Likely secondary to pneumonia. Patient status post bronchoscopy, will follow cultures. -Prednisone taper starting at 40 mg (30mg on 12/31) albuterol and DuoNebs as needed -Infectious disease consulted -Continue amikacin, ethambutol, rifampin for RAUL suspect on CT findings. DC as appropriate shiva. -Cefepime for Pseudomonas in sputum culture -Monitor renal function while on amikacin Acute hypoxic hypercapnic respiratory failure -Extubated on 12/30 -Pt continuing to retain CO2 overnight as she does not tolerate use of CPAP/BIPAP. -Reiterated to patient necessity of using overnight Paroxysmal A. fib with RVR--suspected based on tele monitoring -Converted CCBs to lopressor BID and heparin drip for now -Will need to discuss anticoagulation options. Due to current antibiotics, unable to use DOACs. -Will try to wean abx with ID assistance -No EKG evidence of afib. Pt has had episodes of rapid ventricular rate; EKG repeated on 12/31 and revealed sinus rhythm with PACs -Considering high ventricular rates likely would benefit from anticoagulation Hypertension -Converted CCB to lopressor 25 BID History of fatty liver disease -Trend LFTs and follow as outpatient Diabetes type 2 -Last A1c 7.27 August 2018 -Glycemic consult; ISS FENa: T2DM Code Status: DNR/DNI DVT PPX: low dose heparin PT/OT: TBD Dispo: ICU (2) Acute respiratory failure: (3) Pneumonia: (4) Diabetes mellitus type 2, uncontrolled: (5) Dyslipidemia: Supervising Physician Co-Signing Physician Notes Attending attestation Pt seen and examined in concert with Dr. Daniel. In agreement with the documented findings as noted in the resident documentation with any exceptions or additions as noted here. Continued improvement in shortness of breath with O2 support (baseline oxygen need). Adherent to CPAP overnight, lauded for same. On examination, S1/S2 nl IRR/IRR, no MCG. Coarse breath sounds throughout with decreased bases but overall improved. Abd NT/ND, BS +ve Acute hypoxic respiratory failure 2/2 pneumonia in the setting of O2 dependent COPD s/p extubation, pseudomonas on bronch Cx - ID consultation - tolerating 4LNC (~baseline). Current regimen includes azithromycin, cefepime, amikacin, ethambutol, rifampin. Prednisone 30mg with intended slow taper to 10mg baseline. ID input on regimen manipulation in light of current culture results welcomed. Rapid atrial rhythm concerning for AF - continue metoprolol 25mg BID. Avoiding CCB w/ rifampin. Heparin drip now, d/w patient and family re: AF v. rapid tachycardia and prophylactic AC DMII - continue monitoring BMP, adjust insulin coverage Else see resident documentation as noted. Subjective Patient feels better this morning. Notes she did keep her CPAP on most of the night but also states despite this did not sleep well. She does report her breathing is improved. No discomfort from extubation. Has not tried to get out of bed yet today. Review of Systems Review of Systems: All systems reviewed & are unremarkable except as noted in HPI & below Constitutional: + fatigue, + malaise and + weakness Respiratory: + cough, + chest congestion, + dyspnea and + wheezing Cardiovascular: + dyspnea; no chest pain and no palpitations Gastrointestinal: no abdominal pain Physical Exam Constitutional: WD/WN, vitals as above comfortable; no acute distress Eyes: PERRL, conjunctivae normal, anicteric sclerae ENMT: external ear and nose normal, oropharynx normal Neck: trachea midline, no thyromegaly neck nontender Respiratory: no respiratory distress and does not use accessory muscles Auscultation: + diminished lung sounds, + crackles and + rhonchi Cardiovascular: RRR, no murmur, no edema Rate/Rhythm: regular rate, regular rhythm and + tachycardic Heart Sounds: normal S1 and normal S2; no gallop, no murmur and no cardiac rub Vessels: normal peripheral pulses; no JVD Gastrointestinal (Abdomen): normal bowel sounds, soft, nontender, no hepatosplenomegaly Musculoskeletal: no cyanosis or clubbing, extremities motor strength 5/5 Spine: thoracic spine normal to inspection and lumbar spine normal to inspection; no cervical spinal tenderness Skin: no rashes, warm and dry normal turgor; no lesions Neurologic: patellar DTR's 2+ bilat, sensation intact no focal motor deficits Psychiatric: A+Ox3, euthymic affect Orientation: cooperative Results & Data Vital Signs (Past 12 Hours) Vital Signs Temp Pulse Pulse Resp BP Pulse Ox 12/31/18 15:53 98.2 F 84 20 127/78 97 12/31/18 14:04 96 H 20 98 12/31/18 12:10 92 H 18 95 12/31/18 12:06 97.9 F 95 H 20 121/66 93 12/31/18 10:09 93 H 20 98 12/31/18 08:05 88 12/31/18 07:47 172/73 H 12/31/18 07:00 97.7 F 87 20 162/73 H 99 12/31/18 04:20 97.5 F L 77 20 122/76 99 Laboratory Results 12/31/18 12/31/18 12/31/18 Range/Units 16:26 14:24 11:11 WBC (4.8-10.8) K/uL RBC (4.2-5.4) M/uL Hgb (12.0-16.0) g/dL Hct (37-47) % MCV (80-100) fL MCH (25-34) pg MCHC (32-36) g/dL RDW Std Deviation (36.4-46.3) fL RDW Coeff of Nataly (11.5-14.5) % Plt Count (130-400) K/uL MPV (7.4-10.4) fL APTT 40.7 H (21.0-31.0) Seconds PTT Ratio 1.5 Sodium (136-145) mmol/L Potassium (3.5-5.1) mmol/L Chloride (98-107) mmol/L Carbon Dioxide (21-32) mmol/L Anion Gap (3-11) BUN (7-18) mg/dl Creatinine (0.6-1.2) mg/dl Est Cr Clr Drug Dosing ml/min Est GFR ( Amer) Est GFR (Non-Af Amer) BUN/Creatinine Ratio (10-20) Glucose (70-99) mg/dl POC Glucose 225 H 231 H (70-99) Calcium (8.5-10.1) mg/dl 12/31/18 12/31/18 12/31/18 Range/Units 07:15 05:53 05:35 WBC (4.8-10.8) K/uL RBC (4.2-5.4) M/uL Hgb (12.0-16.0) g/dL Hct (37-47) % MCV (80-100) fL MCH (25-34) pg MCHC (32-36) g/dL RDW Std Deviation (36.4-46.3) fL RDW Coeff of Nataly (11.5-14.5) % Plt Count (130-400) K/uL MPV (7.4-10.4) fL APTT (21.0-31.0) Seconds PTT Ratio Sodium 142 (136-145) mmol/L Potassium 4.3 (3.5-5.1) mmol/L Chloride 100 (98-107) mmol/L Carbon Dioxide 41 H* (21-32) mmol/L Anion Gap 1.0 L (3-11) BUN 24 H (7-18) mg/dl Creatinine 0.88 (0.6-1.2) mg/dl Est Cr Clr Drug Dosing 51.2 ml/min Est GFR ( Amer) 72.9 Est GFR (Non-Af Amer) 62.9 BUN/Creatinine Ratio 26.7 H (10-20) Glucose 92 (70-99) mg/dl POC Glucose 81 107 H (70-99) Calcium 8.6 (8.5-10.1) mg/dl 12/31/18 12/31/18 12/31/18 Range/Units 05:35 05:35 03:51 WBC 12.24 H (4.8-10.8) K/uL RBC 3.69 L (4.2-5.4) M/uL Hgb 10.6 L (12.0-16.0) g/dL Hct 36.5 L (37-47) % MCV 98.9 (80-100) fL MCH 28.7 (25-34) pg MCHC 29.0 L (32-36) g/dL RDW Std Deviation 49.9 H (36.4-46.3) fL RDW Coeff of Nataly 14.0 (11.5-14.5) % Plt Count 235 (130-400) K/uL MPV 9.8 (7.4-10.4) fL APTT 34.8 H (21.0-31.0) Seconds PTT Ratio 1.3 Sodium (136-145) mmol/L Potassium (3.5-5.1) mmol/L Chloride (98-107) mmol/L Carbon Dioxide (21-32) mmol/L Anion Gap (3-11) BUN (7-18) mg/dl Creatinine (0.6-1.2) mg/dl Est Cr Clr Drug Dosing ml/min Est GFR ( Amer) Est GFR (Non-Af Amer) BUN/Creatinine Ratio (10-20) Glucose (70-99) mg/dl POC Glucose 71 (70-99) Calcium (8.5-10.1) mg/dl 12/30/18 12/30/18 12/30/18 Range/Units 23:35 20:25 20:22 WBC (4.8-10.8) K/uL RBC (4.2-5.4) M/uL Hgb (12.0-16.0) g/dL Hct (37-47) % MCV (80-100) fL MCH (25-34) pg MCHC (32-36) g/dL RDW Std Deviation (36.4-46.3) fL RDW Coeff of Nataly (11.5-14.5) % Plt Count (130-400) K/uL MPV (7.4-10.4) fL APTT 53.5 H* (21.0-31.0) Seconds PTT Ratio 2.0 Sodium (136-145) mmol/L Potassium (3.5-5.1) mmol/L Chloride (98-107) mmol/L Carbon Dioxide (21-32) mmol/L Anion Gap (3-11) BUN (7-18) mg/dl Creatinine (0.6-1.2) mg/dl Est Cr Clr Drug Dosing ml/min Est GFR ( Amer) Est GFR (Non-Af Amer) BUN/Creatinine Ratio (10-20) Glucose (70-99) mg/dl POC Glucose 79 132 H (70-99) Calcium (8.5-10.1) mg/dl Medications Administered Current Inpatient Medications Albuterol (Ventolin 0.5% 2.5mg/0.5ml) 2.5 mg NEB Q2H PRN PRN Reason: SOB/Wheeze Stop: 01/26/19 17:43 Albuterol (Duoneb) 3 ml NEB Q2D@1000,1400 K[facility] Stop: 01/28/19 10:44 Last Admin: 12/31/18 14:02 Dose: 3 ml Documented by: Amikacin Sulfate (Amikin) 250 mg INH Q48H [facility] Stop: 01/28/19 11:29 Last Admin: 12/31/18 12:10 Dose: 250 mg Documented by: Dextrose (Dextrose 50%) 25 - 50 ml IV UD PRN; Protocol PRN Reason: Hypoglycemia Protocol Stop: 01/27/19 01:59 Ethambutol HCl (Myambutol) 800 mg PO HS [facility] Stop: 01/26/19 20:59 Last Admin: 12/30/18 20:08 Dose: 800 mg Documented by: Ethambutol HCl (Myambutol) 200 mg PO HS [facility] Stop: 01/26/19 20:59 Last Admin: 12/30/18 20:09 Dose: 200 mg Documented by: Glucagon (Glucagen) 1 mg IM UD PRN; Protocol PRN Reason: Hypoglycemia Protocol Stop: 01/27/19 01:59 Glucose (Glucose 40%) 15 - 30 gm PO UD PRN; Protocol PRN Reason: Hypoglycemia Protocol Stop: 01/27/19 01:59 Glucose (Dex4 Glucose) 4 - 8 tabs PO UD PRN; Protocol PRN Reason: Hypoglycemia Protocol Stop: 01/27/19 01:59 Azithromycin 500 mg/ Dextrose 255 mls @ 127.5 mls/hr IV Q24H [facility] Stop: 01/03/19 15:59 Last Admin: 12/31/18 16:13 Dose: 127.5 mls/hr Documented by: Cefepime HCl 2,000 mg/ Syringe 20 mls @ 5 mls/min IV Q12H [facility]; Protocol Stop: 01/03/19 18:59 Last Admin: 12/31/18 09:41 Dose: 5 mls/min Documented by: Heparin Sodium/Dextrose (Heparin Sodium/Dextrose) 25,000 units in 500 mls @ 24 mls/hr IV .[id number] [facility]; Protocol Stop: 01/29/19 09:14 Last Titration: 12/31/18 15:53 Dose: 1,200 units/hr, 24 mls/hr Documented by: Insulin Aspart (Novolog Flexpen) 0 units SC ACHS [facility] Stop: 01/30/19 11:29 Last Admin: 12/31/18 12:31 Dose: 8 units Documented by: Insulin Aspart (Novolog Flexpen) 0 units SC 0000,0400 [facility] Stop: 01/01/19 04:01 Insulin Glargine (Lantus Solostar Pen) 13 units SC QAM [facility] Stop: 01/30/19 11:59 Last Admin: 12/31/18 12:32 Dose: 13 units Documented by: Lansoprazole (Prevacid) 30 mg NG QAM [facility]; Protocol Stop: 01/27/19 13:59 Last Admin: 12/31/18 07:48 Dose: 30 mg Documented by: Magnesium Oxide (Mag-Ox) 400 mg PO [facility] Stop: 01/27/19 20:59 Last Admin: 12/30/18 20:08 Dose: 400 mg Documented by: Metoprolol Tartrate (Lopressor) 25 mg PO BID [facility] Stop: 01/29/19 08:59 Last Admin: 12/31/18 07:48 Dose: 25 mg Documented by: Miscellaneous (Carbohydrates For Hypoglycemia) 15 - 30 gm PO PRN PRN PRN Reason: Hypoglycemia Treatment Stop: 01/27/19 01:59 Miscellaneous Information (Cefepime Consult Active) 1 ea N/A UD PRN PRN Reason: Consult Stop: 01/26/19 16:02 Miscellaneous Information (Consult Glycemic Management Pharmacy) 1 ea N/A UD PRN PRN Reason: Consult Stop: 01/27/19 01:59 Prednisone (Prednisone) 30 mg NG DAILY@0900 [facility]; Taper Stop: 01/09/19 08:59 Last Admin: 12/31/18 07:48 Dose: 30 mg Documented by: Prednisone (Prednisone) 10 mg NG DAILY [facility] Stop: 02/08/19 08:59 Rifampin (Rifampin) 600 mg PO [facility] Stop: 01/03/19 20:59 Last Admin: 12/30/18 20:09 Dose: 600 mg Documented by: PG Care Time/CCT Total # of Minutes Spent Total Time Spent with Patient: Total time spent is greater than 50% in coordination of care (as documented) at patient's floor/unit and/or counseling patient: Resident Activity Tracking Resident Involvement: Resident Care Provided Care Provided: Adult Hospital Medicine (1) Acute respiratory failure Respiratory failure complication: unspecified whether with hypoxia or hypercapnia Qualified Code(s): J96.00 - Acute respiratory failure, unspecified whether with hypoxia or hypercapnia
[2018-12-31] MEDS: MAGNESIUM OXIDE 400 MG TAB PO SCH (20:42)
[2018-12-31] MEDS: rifAMPin 300 MG CAPSULE PO SCH (20:43)
[2018-12-31] MEDS: ETHAMBUTOL HCL 100 MG PO SCH (20:44)
[2018-12-31] MEDS: ETHAMBUTOL HCL 400 MG TAB PO SCH (20:45)
[2018-12-31 22:41] LABS: Partial Thromboplastin Ratio 2.1
[2018-12-31 22:43] LABS: Partial Thromboplastin Time 57.2 Seconds (21.0-31.0)
[2019-01-01] MEDS: INSULIN ASPART 100 UNITS/ML 3 ML PEN SC SCH ×6 (00:14→21:29)
[2019-01-01 06:29] LABS: Hematocrit (blood only) 34.4 % (37-47); Hemoglobin 10.2 g/dL (12.0-16.0); Mean Corpuscular Hemoglobin 28.6 pg (25-34); Mean Corpuscular Hgb Conc 29.7 g/dL (32-36); Mean Corpuscular Volume 96.4 fL (80-100); Mean Platelet Volume 9.8 fL (7.4-10.4); Platelet Count 209 K/uL (130-400); RDW Coefficient of Variation 13.7 % (11.5-14.5); RDW Standard Deviation 47.8 fL (36.4-46.3); Red Blood Count 3.57 M/uL (4.2-5.4); White Blood Count 11.72 K/uL (4.8-10.8)
[2019-01-01 07:06] LABS: Partial Thromboplastin Ratio 1.7
[2019-01-01] MEDS: HEPARIN SODIUM/DEXTROSE 25,000 UNITS/500 ML BAG IV SCH (07:08)
[2019-01-01 07:09] LABS: Partial Thromboplastin Time 47.2 Seconds (21.0-31.0)
[2019-01-01 07:13] LABS: BUN Creatinine Ratio 26.7 (10-20); Calcium 9.1 mg/dl (8.5-10.1); Creatinine Clr Calc Pharmacy 51.8 ml/min; Est GFR (Non-African American) 63.8
[2019-01-01] MEDS: predniSONE 10 MG TABLET NG SCH (07:58)
[2019-01-01] MEDS: LANSOPRAZOLE 30 MG SOLTAB NG SCH (07:58)
[2019-01-01] MEDS: METOPROLOL TARTRATE 25 MG TAB PO SCH ×2 (07:59→20:55)
[2019-01-01] MEDS: INSULIN HUMAN NPH SC SCH (08:03)
--- NOTE | 2019-01-01 08:38 | Family Medicine Progress Note ---
Date of Service January 01, 2019 Assessment & Plan (1) COPD (chronic obstructive pulmonary disease): Elderly female with past medical history of severe COPD on 4L at home, HTN, T2DM p/w acute hypoxic hypercapnic respiratory failure requiring ICU stay with intubation. COPD exacerbation Likely secondary to pneumonia. Patient status post bronchoscopy, cultures show pansensitive Pseudomonas. -Prednisone taper starting at 40 mg (30mg on 12/31) albuterol and DuoNebs as needed -Infectious disease consulted appreciate updated recommendations as we cannot start anticoagulation on her current medications -Continue amikacin, ethambutol, rifampin for RAUL suspect on CT findings. DC as appropriate shiva. -Cefepime for Pseudomonas in sputum culture -Monitor renal function while on amikacin Acute hypoxic hypercapnic respiratory failure -Extubated on 12/30 -Pt continuing to retain CO2 overnight as she does not tolerate use of CPAP/BIPAP. -Reiterated to patient necessity of using overnight patient will consider Paroxysmal A. fib with RVR--suspected based on tele monitoring -Converted CCBs to lopressor BID and heparin drip for now -Will need to discuss anticoagulation options. Due to current antibiotics, sammy ble to use DOACs. -Will try to wean abx with ID assistance -No EKG evidence of afib. Pt has had episodes of rapid ventricular rate; EKG repeated on 12/31 and revealed sinus rhythm with PACs -Considering high ventricular rates likely would benefit from anticoagulation Hypertension -Converted CCB to lopressor 25 BID History of fatty liver disease -Trend LFTs and follow as outpatient -LFTs wnl, alk phos elevated. Diabetes type 2 -Last A1c 7.27 August 2018 -Glycemic consult; ISS FENa: T2DM Code Status: DNR/DNI DVT PPX: low dose heparin PT/OT: TBD Dispo: ICU FENa: Diabetes type 2 Code Status: DNR/DNI DVT PPX: Low-dose heparin PT/OT:Ordered Dispo: PCU pending clinical improvement Carlo Peña MD PGY 2, FCM This chart was completed utilizing [employer] voice recognition software. Grammatical errors, random word insertions, pronoun errors, and in complete sentences are an occasional consequence of the system. Any questions or concerns about the content, text, or information contained within the body of this dictation should be addressed directly to the physician for clarification. (2) Acute respiratory failure: (3) Pneumonia: (4) Diabetes mellitus type 2, uncontrolled: (5) Dyslipidemia: Supervising Physician Co-Signing Physician Notes Patient seen and examined with Dr. Peña. I agree with their exam findings, review of systems, assessment and plan. I have personally reviewed the lab work and imaging from today. patient laying in bed, no distress, breathing well, she was not wearing her BIPAP most of the night, she keeps taking it off discussed with patient and her family and the RN to try to keep it in place reviewed chart, reviewed labs Exam: elderly female, no acute distress, lungs diminished, some crackles in bases, no wheezing, normal resp effort heart irregular irregular, no murmurs, abdomen soft, NT, ND - Acute on chronic hypoxic respiratory failure improved, was intubated earlier in admission, no stable on nasal canula due to pneumonia, Pseudomonas on sputum culture, treating with Cefepime - Acute on chronic hypercapnic respiratory failure encouraged patient to wear NIPPV at night to help control CO2 she is not always compliant, reminded RN to have it placed follow CO 2 levels - Pneumonia: continue Cefepime - Possible RAUL infection: awaiting final AFB culture, continue treatment for time being - Possible atrial fibrillation, paroxysmal: EKG have shown PAC and MAT had reported atrial fibrillation with rates in 150's earlier in stay continue rate control with metoprolol anticoagulation with heparin drip for now Subjective Patient sitting up in a chair in no acute distress. Patient reports doing well overnight, tolerating her diet, voiding with Amezcua in place, stooling, sleeping. Patient reports she feels like she subjectively improving, breathing is easier, she denies any chest pressure chest pain, negative review of systems. All questions answered, no acute concerns. Physical Exam Physical Exam: General: Elderly female sitting upright in a chair in no acute distress HEENT: Number cephalic atraumatic Neck: Normal visual inspection Cardiac: Tachycardic I did not appreciate significant murmurs rubs or gallops, normal S1, normal S2, 1+ pedal edema, no calf tenderness Respiratory: Rhonchorous throughout all lung baez with symmetrical chest rise, nonlabored breathing GI: Bowel sounds present, soft, nontender, nondistended MSK: Moves all extremities Neuro: AAO x2 Psych: Calm, cooperative Results & Data Vital Signs (Past 12 Hours) Vital Signs Temp Pulse Pulse Pulse Resp BP Pulse Ox 10/14/19 07:40 102 H 18 93 01/01/19 07:26 96 H 01/01/19 07:05 36.6 C 98 H 18 149/71 H 93 01/01/19 03:46 36.2 C L 86 16 145/78 H 92 01/01/19 00:43 85 12/31/18 23:42 36.1 C L 99 H 22 127/62 88 L 12/31/18 22:27 88 20 90 Laboratory Results 01/01/19 01/01/19 01/01/19 Range/Units 11:22 07:11 06:01 WBC (4.8-10.8) K/uL RBC (4.2-5.4) M/uL Hgb (12.0-16.0) g/dL Hct (37-47) % MCV (80-100) fL MCH (25-34) pg MCHC (32-36) g/dL RDW Std Deviation (36.4-46.3) fL RDW Coeff of Nataly (11.5-14.5) % Plt Count (130-400) K/uL MPV (7.4-10.4) fL APTT (21.0-31.0) Seconds PTT Ratio Sodium (136-145) mmol/L Potassium (3.5-5.1) mmol/L Chloride (98-107) mmol/L Carbon Dioxide (21-32) mmol/L Anion Gap (3-11) BUN (7-18) mg/dl Creatinine (0.6-1.2) mg/dl Est Cr Clr Drug Dosing ml/min Est GFR ( Amer) Est GFR (Non-Af Amer) BUN/Creatinine Ratio (10-20) Glucose (70-99) mg/dl POC Glucose 131 H 98 (70-99) Calcium (8.5-10.1) mg/dl Total Bilirubin 0.7 (0.2-1) mg/dl Direct Bilirubin 0.4 H (0-0.2) mg/dl AST 24 (15-37) U/L ALT 35 (12-78) U/L Alkaline Phosphatase 185 H (45-117) U/L Total Protein 6.4 (6.4-8.2) gm/dl Albumin 2.3 L (3.4-5.0) gm/dl 01/01/19 01/01/19 01/01/19 Range/Units 06:01 06:01 06:01 WBC 11.72 H (4.8-10.8) K/uL RBC 3.57 L (4.2-5.4) M/uL Hgb 10.2 L (12.0-16.0) g/dL Hct 34.4 L (37-47) % MCV 96.4 (80-100) fL MCH 28.6 (25-34) pg MCHC 29.7 L (32-36) g/dL RDW Std Deviation 47.8 H (36.4-46.3) fL RDW Coeff of Nataly 13.7 (11.5-14.5) % Plt Count 209 (130-400) K/uL MPV 9.8 (7.4-10.4) fL APTT 47.2 H* (21.0-31.0) Seconds PTT Ratio 1.7 Sodium 139 (136-145) mmol/L Potassium 4.0 (3.5-5.1) mmol/L Chloride 95 L (98-107) mmol/L Carbon Dioxide 45 H* (21-32) mmol/L Anion Gap -1.0 L (3-11) BUN 23 H (7-18) mg/dl Creatinine 0.87 (0.6-1.2) mg/dl Est Cr Clr Drug Dosing 51.8 ml/min Est GFR ( Amer) 74.0 Est GFR (Non-Af Amer) 63.8 BUN/Creatinine Ratio 26.7 H (10-20) Glucose 103 H (70-99) mg/dl POC Glucose (70-99) Calcium 9.1 (8.5-10.1) mg/dl Total Bilirubin (0.2-1) mg/dl Direct Bilirubin (0-0.2) mg/dl AST (15-37) U/L ALT (12-78) U/L Alkaline Phosphatase (45-117) U/L Total Protein (6.4-8.2) gm/dl Albumin (3.4-5.0) gm/dl 01/01/19 01/01/19 12/31/18 Range/Units 04:15 00:03 21:54 WBC (4.8-10.8) K/uL RBC (4.2-5.4) M/uL Hgb (12.0-16.0) g/dL Hct (37-47) % MCV (80-100) fL MCH (25-34) pg MCHC (32-36) g/dL RDW Std Deviation (36.4-46.3) fL RDW Coeff of Nataly (11.5-14.5) % Plt Count (130-400) K/uL MPV (7.4-10.4) fL APTT 57.2 H* (21.0-31.0) Seconds PTT Ratio 2.1 Sodium (136-145) mmol/L Potassium (3.5-5.1) mmol/L Chloride (98-107) mmol/L Carbon Dioxide (21-32) mmol/L Anion Gap (3-11) BUN (7-18) mg/dl Creatinine (0.6-1.2) mg/dl Est Cr Clr Drug Dosing ml/min Est GFR ( Amer) Est GFR (Non-Af Amer) BUN/Creatinine Ratio (10-20) Glucose (70-99) mg/dl POC Glucose 108 H 155 H (70-99) Calcium (8.5-10.1) mg/dl Total Bilirubin (0.2-1) mg/dl Direct Bilirubin (0-0.2) mg/dl AST (15-37) U/L ALT (12-78) U/L Alkaline Phosphatase (45-117) U/L Total Protein (6.4-8.2) gm/dl Albumin (3.4-5.0) gm/dl 12/31/18 12/31/18 12/31/18 Range/Units 20:56 20:34 20:33 WBC (4.8-10.8) K/uL RBC (4.2-5.4) M/uL Hgb (12.0-16.0) g/dL Hct (37-47) % MCV (80-100) fL MCH (25-34) pg MCHC (32-36) g/dL RDW Std Deviation (36.4-46.3) fL RDW Coeff of Nataly (11.5-14.5) % Plt Count (130-400) K/uL MPV (7.4-10.4) fL APTT (21.0-31.0) Seconds PTT Ratio Sodium (136-145) mmol/L Potassium (3.5-5.1) mmol/L Chloride (98-107) mmol/L Carbon Dioxide (21-32) mmol/L Anion Gap (3-11) BUN (7-18) mg/dl Creatinine (0.6-1.2) mg/dl Est Cr Clr Drug Dosing ml/min Est GFR ( Amer) Est GFR (Non-Af Amer) BUN/Creatinine Ratio (10-20) Glucose (70-99) mg/dl POC Glucose 72 52 L* 64 L* (70-99) Calcium (8.5-10.1) mg/dl Total Bilirubin (0.2-1) mg/dl Direct Bilirubin (0-0.2) mg/dl AST (15-37) U/L ALT (12-78) U/L Alkaline Phosphatase (45-117) U/L Total Protein (6.4-8.2) gm/dl Albumin (3.4-5.0) gm/dl 12/31/18 12/31/18 Range/Units 16:26 14:24 WBC (4.8-10.8) K/uL RBC (4.2-5.4) M/uL Hgb (12.0-16.0) g/dL Hct (37-47) % MCV (80-100) fL MCH (25-34) pg MCHC (32-36) g/dL RDW Std Deviation (36.4-46.3) fL RDW Coeff of Nataly (11.5-14.5) % Plt Count (130-400) K/uL MPV (7.4-10.4) fL APTT 40.7 H (21.0-31.0) Seconds PTT Ratio 1.5 Sodium (136-145) mmol/L Potassium (3.5-5.1) mmol/L Chloride (98-107) mmol/L Carbon Dioxide (21-32) mmol/L Anion Gap (3-11) BUN (7-18) mg/dl Creatinine (0.6-1.2) mg/dl Est Cr Clr Drug Dosing ml/min Est GFR ( Amer) Est GFR (Non-Af Amer) BUN/Creatinine Ratio (10-20) Glucose (70-99) mg/dl POC Glucose 225 H (70-99) Calcium (8.5-10.1) mg/dl Total Bilirubin (0.2-1) mg/dl Direct Bilirubin (0-0.2) mg/dl AST (15-37) U/L ALT (12-78) U/L Alkaline Phosphatase (45-117) U/L Total Protein (6.4-8.2) gm/dl Albumin (3.4-5.0) gm/dl Medications Administered Current Inpatient Medications Albuterol (Ventolin 0.5% 2.5mg/0.5ml) 2.5 mg NEB Q2H PRN PRN Reason: SOB/Wheeze Stop: 01/26/19 17:43 Albuterol (Duoneb) 3 ml NEB Q2D@1000,1400 KEV Stop: 01/28/19 10:44 Last Admin: 12/31/18 14:02 Dose: 3 ml Documented by: Amikacin Sulfate (Amikin) 250 mg INH Q48H KEV Stop: 01/28/19 11:29 Last Admin: 12/31/18 12:10 Dose: 250 mg Documented by: Dextrose (Dextrose 50%) 25 - 50 ml IV UD PRN; Protocol PRN Reason: Hypoglycemia Protocol Stop: 01/27/19 01:59 Ethambutol HCl (Myambutol) 800 mg PO HS KEV Stop: 01/26/19 20:59 Last Admin: 12/31/18 20:45 Dose: 800 mg Documented by: Ethambutol HCl (Myambutol) 200 mg PO HS KEV Stop: 01/26/19 20:59 Last Admin: 12/31/18 20:44 Dose: 200 mg Documented by: Glucagon (Glucagen) 1 mg IM UD PRN; Protocol PRN Reason: Hypoglycemia Protocol Stop: 01/27/19 01:59 Glucose (Glucose 40%) 15 - 30 gm PO UD PRN; Protocol PRN Reason: Hypoglycemia Protocol Stop: 01/27/19 01:59 Glucose (Dex4 Glucose) 4 - 8 tabs PO UD PRN; Protocol PRN Reason: Hypoglycemia Protocol Stop: 01/27/19 01:59 Azithromycin 500 mg/ Dextrose 255 mls @ 127.5 mls/hr IV Q24H KEV Stop: 01/03/19 15:59 Last Infusion: 12/31/18 18:27 Dose: Infused Documented by: Cefepime HCl 2,000 mg/ Syringe 20 mls @ 5 mls/min IV Q12H [facility]; Protocol Stop: 01/03/19 18:59 Last Admin: 01/01/19 09:55 Dose: 5 mls/min Documented by: Heparin Sodium/Dextrose (Heparin Sodium/Dextrose) 25,000 units in 500 mls @ 24 mls/hr IV .[id number] [facility]; Protocol Stop: 01/29/19 09:14 Last Titration: 01/01/19 07:55 Dose: 1,200 units/hr, 24 mls/hr Documented by: Insulin Aspart (Novolog Flexpen) 0 units SC ACHS [facility] Stop: 01/30/19 11:29 Last Admin: 01/01/19 08:01 Dose: 4 units Documented by: Insulin Human NPH (Novolin N Nph) 18 units SC DAILY [facility]; Protocol Stop: 01/31/19 08:59 Last Admin: 01/01/19 08:03 Dose: 18 units Documented by: Lansoprazole (Prevacid) 30 mg NG QAM [facility]; Protocol Stop: 01/27/19 13:59 Last Admin: 01/01/19 07:58 Dose: 30 mg Documented by: Magnesium Oxide (Mag-Ox) 400 mg PO HS [facility] Stop: 01/27/19 20:59 Last Admin: 12/31/18 20:42 Dose: 400 mg Documented by: Metoprolol Tartrate (Lopressor) 25 mg PO BID [facility] Stop: 01/29/19 08:59 Last Admin: 01/01/19 07:59 Dose: 25 mg Documented by: Miscellaneous (Carbohydrates For Hypoglycemia) 15 - 30 gm PO PRN PRN PRN Reason: Hypoglycemia Treatment Stop: 01/27/19 01:59 Last Admin: 12/31/18 20:40 Dose: 15 gm Documented by: Miscellaneous Information (Cefepime Consult Active) 1 ea N/A UD PRN PRN Reason: Consult Stop: 01/26/19 16:02 Miscellaneous Information (Consult Glycemic Management Pharmacy) 1 ea N/A UD PRN PRN Reason: Consult Stop: 01/27/19 01:59 Prednisone (Prednisone) 30 mg NG DAILY@0900 [facility]; Taper Stop: 01/09/19 08:59 Last Admin: 01/01/19 07:58 Dose: 30 mg Documented by: Prednisone (Prednisone) 10 mg NG DAILY KEV Stop: 02/08/19 08:59 Rifampin (Rifampin) 600 mg PO HS KEV Stop: 01/03/19 20:59 Last Admin: 12/31/18 20:43 Dose: 600 mg Documented by: PG Care Time/CCT Total # of Minutes Spent Total Time Spent with Patient: Total time spent is greater than 50% in coordination of care (as documented) at patient's floor/unit and/or counseling patient: Resident Activity Tracking Resident Involvement: Resident Care Provided Care Provided: Adult Hospital Medicine (1) Acute respiratory failure Respiratory failure complication: unspecified whether with hypoxia or hypercapnia Qualified Code(s): J96.00 - Acute respiratory failure, unspecified whether with hypoxia or hypercapnia
[2019-01-01] MEDS: CEFEPIME 2,000 MG in SYRINGE 7.5 ML IV SCH ×2 (09:55→22:32)
[2019-01-01 11:07] LABS: Albumin Level 2.3 gm/dl (3.4-5.0); Bilirubin Direct 0.4 mg/dl (0-0.2); Bilirubin,Total 0.7 mg/dl (0.2-1); Total Protein 6.4 gm/dl (6.4-8.2)
--- NOTE | 2019-01-01 14:10 | Pharmacy Report ---
Pharmacy Glycemic Short Note 2 - Date of Service January 01, 2019 - Glycemic Short BSG Results (Last 24 hours): 12/31/18 12/31/18 12/31/18 16:26 20:33 20:34 Glucose POC Glucose 225 H 64 L* 52 L* 12/31/18 01/01/19 01/01/19 20:56 00:03 04:15 Glucose POC Glucose 72 155 H 108 H 01/01/19 01/01/19 01/01/19 06:01 07:11 11:22 Glucose 103 H POC Glucose 98 131 H OUTPATIENT ANTIDIABETIC REGIMEN: * Metformin 500mg PO BID * A1c = 7.4% 12/28/18 ASSESSMENT: 01/01 * Patient received total of 32 units of insulin yesterday, 13 of which were basal * Hypoglycemic event yesterday PM, fasting this morning 98, patient was switched to 18 units of NPH to coincide with prednisone dose and will hopefully avoid steroid wearing off/hypoglycemia in the morning * Lunchtime BSG today 131, will continue current CF/CR today 12/31 * Patient received total of 34 units of insulin yesterday, of which 15 were basal insulin * Fasting BSG this AM 92 mg/dL - will scale back on Lantus for today, will wait to ensure BSGs trending up first * Lunchtime BSG trending up to 200s, continue same CF/CR but added Lantus back on - did small reduction from 15 units to 13 units as BSGs were in 70s overnight 12/30 * Patient transitioned off drip yesterday, received 10 units of Lantus plus drip and 16 units of SSI * Fasting BSG this AM 102 mg/dL - continues on prednisone 40 mg daily then tapering * Would have expected higher fasting with steroids on board, waited until lunch to reassess Lantus needs. BSG at lunch 169 mg/dL - diet continued * Will order Lantus 15 units x 1 for now also tighten CR at dinner. Will keep at Q4 hr checks since steroids on board, may d/c tomorrow if BSGs stable 12/29 * BSGs well controlled with insulin drip. Drip running at 0.4-0.6unit/hr over last 6+ hrs * Pt extubated at this time, continuous tube feeds off, prednisone taper continues, ps aeruginosa in BAL cx * Will transition to SQ regimen at this time. * Basal dose will be based upon latest drip rates. Bolus dosing will be based upon wt and mod-severe stress level given current severity of illness and steroid provision 12/28 * Type 2 diabetic admitted for respiratory failure, hypercapneic resp failure w/ resp acidosis leading to intubation/mech ventilation * IV steroid therapy and abx therapy initiated for CAP with risk factors for resistant organism + treatment for possible RAUL pulm infxn * IV insulin drip initiated per ICU protocol for BSG > 220 * Insulin drip continues at this time at 1.85 units/hr, last 3 BSGs in goal range at this rate and monitoring may decrease to Q 2 hrs in near future * Pt failed SBT today and will remain intubated - reassess readiness for extubation tomorrow AM * Steroid regimen changed from Solu-medrol 30mg TID to Prednisone taper * Tube feedings planned for later today as pt not ready for extubation PLAN FOR INPATIENT GLYCEMIC CONTROL: * NPH 18 units x 1, will reduce with further steroid taper * Novolog SQ ACHS * Goal range 110-140 * CF 30 mg/dL/unit * CR 1 unit per 10 gm CHO consumed 8
[2019-01-01] MEDS: AZITHROMYCIN 500 MG in DEXTROSE 5% 250 ML IV SCH (16:51)
[2019-01-01] MEDS: MAGNESIUM OXIDE 400 MG TAB PO SCH (20:55)
[2019-01-01] MEDS: ETHAMBUTOL HCL 400 MG TAB PO SCH (20:56)
[2019-01-01] MEDS: ETHAMBUTOL HCL 100 MG PO SCH (20:59)
[2019-01-01] MEDS: rifAMPin 300 MG CAPSULE PO SCH (20:59)
--- NOTE | 2019-01-01 22:10 | Infectious Disease Progress Nt ---
Date of Service January 01, 2019 Assessment & Plan (1) Pneumonia: 78 yo female with severe COPD now with acute respiratory failure. Pending bronchoscopy smears and cultures, to continue present Abx for now. Keep close eye on renal function on amikacin. Will follow. (2) RAUL (mycobacterium avium-intracellulare) infection: Subjective Patient seen in follow-up for pneumonia and possible RAUL infection. Patient feels better this morning. Notes she did keep her CPAP on most of the night but also states despite this did not sleep well. She does report her breathing is improved. No discomfort from extubation. Has not tried to get out of bed yet today. Review of Systems Review of Systems: All systems reviewed & are unremarkable except as noted in HPI & below Physical Exam Constitutional: WD/WN, vitals as above comfortable; no acute distress Eyes: PERRL, conjunctivae normal, anicteric sclerae ENMT: external ear and nose normal, oropharynx normal Neck: trachea midline, no thyromegaly neck nontender Respiratory: no respiratory distress and does not use accessory muscles Auscultation: + diminished lung sounds Cardiovascular: Rate/Rhythm: regular rate and regular rhythm Heart Sounds: normal S1 and normal S2; no gallop, no murmur and no cardiac rub Vessels: normal peripheral pulses; no JVD Gastrointestinal (Abdomen): normal bowel sounds, soft, nontender, no hepatosplenomegaly Musculoskeletal: no cyanosis or clubbing, extremities motor strength 5/5 Spine: thoracic spine normal to inspection and lumbar spine normal to inspection; no cervical spinal tenderness Skin: no rashes, warm and dry normal turgor; no lesions Neurologic: patellar DTR's 2+ bilat, sensation intact no focal motor deficits Psychiatric: A+Ox3, euthymic affect Orientation: cooperative Lymphatic: no cervical or axillary lymphadenopathy no inguinal lymphadenopathy Results & Data Vital Signs (Past 12 Hours) Vital Signs Temp Pulse Pulse Resp BP Pulse Ox 01/01/19 21:50 71 22 93 01/01/19 19:40 36.5 C 86 18 134/69 92 01/01/19 15:50 36.6 C 97 H 18 136/73 90 01/01/19 11:03 36.5 C 107 H 16 131/59 L 91 Laboratory Results Short CBC 01/01/19 Range/Units 06:01 WBC 11.72 H (4.8-10.8) K/uL Hgb 10.2 L (12.0-16.0) g/dL Hct 34.4 L (37-47) % Plt Count 209 (130-400) K/uL BMP 01/01/19 06:01 Sodium 139 Potassium 4.0 Chloride 95 L Carbon Dioxide 45 H* BUN 23 H Creatinine 0.87 Glucose 103 H Calcium 9.1 Liver Function 01/01/19 Range/Units 06:01 Total Bilirubin 0.7 (0.2-1) mg/dl Direct Bilirubin 0.4 H (0-0.2) mg/dl AST 24 (15-37) U/L ALT 35 (12-78) U/L Alkaline Phosphatase 185 H (45-117) U/L Albumin 2.3 L (3.4-5.0) gm/dl Diagnostic Findings Microbiology 12/27/18 13:05 Blood Aerobic Blood Culture - Final No growth in Aerobic bottle after 5 days. 12/27/18 13:05 Blood Anaerobic Blood Culture - Final No growth in Anaerobic bottle after 5 days. 12/27/18 13:17 Blood Aerobic Blood Culture - Final No growth in Aerobic bottle after 5 days. 12/27/18 13:17 Blood Anaerobic Blood Culture - Final 12/27/18 18:10 Bronch Wash,Left Lower Lobe Acid Fast Bacilli Smear - Final 12/27/18 18:10 Bronch Wash,Left Lower Lobe Acid Fast Bacilli Culture - Preliminary No Acid-Fast Bacilli Isolated - Report 1, Additional Report to Follow. 12/27/18 18:10 Bronch Wash,Left Lower Lobe Fungal Smear - Final 12/27/18 18:10 Bronch Wash,Left Lower Lobe Fungal Culture - Preliminary No yeast or fungus isolated - Report 1, Additional Report to Follow. 12/27/18 18:10 Bronch Wash,Left Lower Lobe Gram Stain - Final 12/27/18 18:10 Bronch Wash,Left Lower Lobe Bronchoalveolar Lavage Culture - Final Pseudomonas aeruginosa XR chest 1V portable CLINICAL HISTORY: 78 years-old Female presenting with Resp failure. TECHNIQUE: Portable upright AP view of the chest was obtained. COMPARISON: 12/28/2018. FINDINGS: Endotracheal tube terminates in the midthoracic trachea over 3 cm from the deysi, which is poorly delineated. Nasogastric tube descends below the diaphragm, terminus and sidehole not visualized. Numerous external leads overlie the thorax to grating evaluation. Atherosclerosis of the aortic arch. Cardiac silhouette moderately enlarged. Slight leftward shift of the mediastinum as on prior exam. Poor aeration of the left lung base unchanged with suspected underlying moderate left pleural effusion. Tubular opacities in the left mid lung as on prior exam. Heterogeneous radiolucency of the right lung, which is hyperinflated. Minimal patchy opacities are suspected in the right mid to lower lung as on prior exam. Osseous structures normal. Upper abdomen normal. IMPRESSION: 1. Unchanged appearance with extensive consolidation or atelectasis at the left lung base with suspected underlying moderate left pleural effusion. 2. Extensive left mid lung infiltrates and suggestion of minimal right mid to lower lung patchy infiltrates. This is concerning for superimposed pneumonia and is not significant change from prior. 3. Suspected underlying emphysema. 4. Appropriately positioned tubes. Electronically signed by: Fam Stauffer M.D. 12/29/2018 7:45 AM Dictated: 12/29/18 0741 PG Care Time/CCT Total # of Minutes Spent Total Time Spent with Patient: Total time spent is greater than 50% in c oordination of care (as documented) at patient's floor/unit and/or counseling patient: (1) Pneumonia Laterality: unspecified laterality Lung location: unspecified part of lung Pneumonia type: due to unspecified organism Qualified Code(s): J18.9 - Pneumonia, unspecified organism
[2019-01-02] MEDS: HEPARIN SODIUM/DEXTROSE 25,000 UNITS/500 ML BAG IV SCH ×2 (03:33→22:49)
[2019-01-02 06:04] LABS: Hemoglobin 10.5 g/dL (12.0-16.0); Mean Corpuscular Hemoglobin 28.5 pg (25-34); Mean Corpuscular Volume 95.1 fL (80-100); Mean Platelet Volume 9.7 fL (7.4-10.4); Platelet Count 213 K/uL (130-400); RDW Coefficient of Variation 13.8 % (11.5-14.5); RDW Standard Deviation 47.9 fL (36.4-46.3); Red Blood Count 3.68 M/uL (4.2-5.4)
[2019-01-02 06:18] LABS: Partial Thromboplastin Ratio 1.6; Partial Thromboplastin Time 42.8 Seconds (21.0-31.0)
[2019-01-02] MEDS ORDERED: HEPARIN BOLUS IV ONE (06:22)
[2019-01-02] MEDS ORDERED: HEPARIN IV BOLUS 3,000 UNITS in SYRINGE 0 ML IV ONE (06:30)
[2019-01-02] MEDS: predniSONE 10 MG TABLET NG SCH (07:40)
[2019-01-02] MEDS: METOPROLOL TARTRATE 25 MG TAB PO SCH ×2 (07:40→20:41)
[2019-01-02] MEDS: LANSOPRAZOLE 30 MG SOLTAB NG SCH (07:40)
[2019-01-02] MEDS: INSULIN ASPART 100 UNITS/ML 3 ML PEN SC SCH ×4 (08:17→20:42)
[2019-01-02] MEDS: INSULIN HUMAN NPH SC SCH (08:19)
[2019-01-02 08:38] LABS: BUN Creatinine Ratio 29.2 (10-20); Creatinine Clr Calc Pharmacy 58.6 ml/min; Est GFR (African American) 85.7; Potassium 3.6 mmol/L (3.5-5.1)
--- NOTE | 2019-01-02 09:31 | Family Medicine Progress Note ---
Date of Service January 02, 2019 Assessment & Plan (1) COPD (chronic obstructive pulmonary disease): Elderly female with past medical history of severe COPD on 4L at home, HTN, T2DM p/w acute hypoxic hypercapnic respiratory failure requiring ICU stay with intubation. COPD exacerbation Likely secondary to pneumonia. Patient status post bronchoscopy, cultures show pansensitive Pseudomonas. -Prednisone 30 mg daily, will taper as lung function continues to improve -Albuterol and DuoNebs as needed. -Infectious disease consulted appreciate updated recommendations as we cannot start anticoagulation on her current medications -Continue amikacin, ethambutol, rifampin for RAUL suspect on CT findings. DC pending results of MAC culture -Cefepime for Pseudomonas in sputum culture -Monitor renal function while on amikacin Acute hypoxic hypercapnic respiratory failure -Extubated on 12/30 -Pt continuing to retain CO2 overnight as she does not tolerate use of CPAP/BIPAP. -Reiterated to patient necessity of using overnight patient has been using more consistently Paroxysmal A. fib with RVR--suspected based on tele monitoring -Converted CCBs to lopressor BID and heparin drip for now -Will need to discuss anticoagulation options. Due to current antibiotics, unable to use DOACs. -No EKG evidence of afib. Pt has had episodes of rapid ventricular rate; EKG repeated on 12/31 and revealed sinus rhythm with PACs -Considering high ventricular rates likely would benefit from anticoagulation Anticoagulation We had a discussion with pharmacy this morning regarding patient's anticoagu lation. Given that she is on rifampin to ask her contraindicated, warfarin is not an ideal choice. Until her antibiotics were de-escalated really our options consist of high-dose Lovenox or heparin drip. Given that she has IV access, and will be remaining inpatient for the time being we will continue heparin drip -Continue heparin drip for anticoagulation DC pending de-escalation of antibiotics and transition to DOAC Hypertension -Continue lopressor 25 BID History of fatty liver disease -Trend LFTs and follow as outpatient Diabetes type 2 -Last A1c 7.27 August 2018 -Glycemic consult; ISS FENa: Diabetes type 2 Code Status: DNR/DNI DVT PPX: Low-dose heparin PT/OT:Ordered Dispo: PCU pending clinical improvement Carlo Peña MD PGY 2, FCM This chart was completed utilizing [employer] voice recognition software. Grammatical errors, random word insertions, pronoun errors, and in complete sentences are an occasional consequence of the system. Any questions or concerns about the content, text, or information contained within the body of this dictation should be addressed directly to the physician for clarification. Supervising Physician Co-Signing Physician Notes Patient seen and examined with Dr. Peña. I agree with their exam findings, review of systems, assessment and plan. I have personally reviewed the lab work and imaging from today. patient continues to breath well, has productive cough, more alert today eating reasonably well she was able to tolerate her BIPAP overnight HR jumped to 130's in the evening, instructed resident to give Lopressor IV and increase Metoprolol to 50mg BID Exam: elderly female, no acute distress, lungs diminished, some crackles in bases, no wheezing, normal resp effort heart irregular irregular, no murmurs, abdomen soft, NT, ND - Acute on chronic hypoxic respiratory failure improved, was intubated earlier in admission, no stable on nasal canula due to pneumonia, Pseudomonas on sputum culture, treating with Cefepime - Acute on chronic hypercapnic respiratory failure encouraged patient to wear NIPPV at night to help control CO2 more compliant with mask last night - Pneumonia: continue Cefepime 10 days, no fever, WBC 11k - Possible RAUL infection: awaiting final AFB culture, continue treatment for time being - Possible atrial fibrillation, paroxysmal: EKG have shown PAC and MAT had reported atrial fibrillation with rates in 150's earlier in stay continue rate control with metoprolol increase metoprolol to 50mg BID anticoagulation with heparin drip for now, likely start Coumadin soon Subjective Patient sitting upright this morning in no acute distress. Reports no acute events overnight, tolerating her diet although not eating great, Amezcua catheter in place with her orange urine secondary to rifampin, patient is not sure if she has had a recent bowel movement, slept well overnight with better use of her CPAP. Patient reports subjective improvement in her symptoms, she is on 5 L of oxygen which is only 1 L greater than her home oxygen requirements. I expect the patient continued to improve from a clinical standpoint. Acute concerns at present relates anticoagulation and antibiotics otherwise all questions answered. Physical Exam Physical Exam: General: Elderly female sitting upright in a chair in no acute distress HEENT: Normocephalic atraumatic Neck: Normal visual inspection Cardiac: Tachycardic I did not appreciate significant murmurs rubs or gallops, normal S1, normal S2, 1+ pedal edema, no calf tenderness Respiratory: Rhonchorous throughout all lung baez with symmetrical chest rise, nonlabored breathing GI: Bowel sounds present, soft, nontender, nondistended MSK: Moves all extremities Neuro: AAO x2 Psych: Calm, cooperative Results & Data Vital Signs (Past 12 Hours) Vital Signs Temp Pulse Pulse Resp BP Pulse Ox 01/02/19 07:48 96 H 01/02/19 07:02 36.6 C 113 H 19 128/66 95 01/02/19 03:21 36.3 C L 90 22 146/76 H 92 01/02/19 01:32 85 01/01/19 23:11 35.5 C L 91 H 21 135/76 96 01/01/19 21:50 71 22 93 Laboratory Results 01/02/19 01/02/19 01/02/19 Range/Units 07:16 05:46 05:46 WBC (4.8-10.8) K/uL RBC (4.2-5.4) M/uL Hgb (12.0-16.0) g/dL Hct (37-47) % MCV (80-100) fL MCH (25-34) pg MCHC (32-36) g/dL RDW Std Deviation (36.4-46.3) fL RDW Coeff of Nataly (11.5-14.5) % Plt Count (130-400) K/uL MPV (7.4-10.4) fL APTT 42.8 H (21.0-31.0) Seconds PTT Ratio 1.6 Sodium 140 (136-145) mmol/L Potassium 3.6 (3.5-5.1) mmol/L Chloride 95 L (98-107) mmol/L Carbon Dioxide 43 H* (21-32) mmol/L Anion Gap 2.0 L (3-11) BUN 22 H (7-18) mg/dl Creatinine 0.77 (0.6-1.2) mg/dl Est Cr Clr Drug Dosing 58.6 ml/min Est GFR ( Amer) 85.7 Est GFR (Non-Af Amer) 74.0 BUN/Creatinine Ratio 29.2 H (10-20) Glucose 111 H (70-99) mg/dl POC Glucose 107 H (70-99) Calcium 9.0 (8.5-10.1) mg/dl 01/02/19 01/01/19 01/01/19 Range/Units 05:46 20:34 16:15 WBC 11.20 H (4.8-10.8) K/uL RBC 3.68 L (4.2-5.4) M/uL Hgb 10.5 L (12.0-16.0) g/dL Hct 35.0 L (37-47) % MCV 95.1 (80-100) fL MCH 28.5 (25-34) pg MCHC 30.0 L (32-36) g/dL RDW Std Deviation 47.9 H (36.4-46.3) fL RDW Coeff of Nataly 13.8 (11.5-14.5) % Plt Count 213 (130-400) K/uL MPV 9.7 (7.4-10.4) fL APTT (21.0-31.0) Seconds PTT Ratio Sodium (136-145) mmol/L Potassium (3.5-5.1) mmol/L Chloride (98-107) mmol/L Carbon Dioxide (21-32) mmol/L Anion Gap (3-11) BUN (7-18) mg/dl Creatinine (0.6-1.2) mg/dl Est Cr Clr Drug Dosing ml/min Est GFR ( Amer) Est GFR (Non-Af Amer) BUN/Creatinine Ratio (10-20) Glucose (70-99) mg/dl POC Glucose 83 182 H (70-99) Calcium (8.5-10.1) mg/dl Medications Administered Current Inpatient Medications Albuterol (Ventolin 0.5% 2.5mg/0.5ml) 2.5 mg NEB Q2H PRN PRN Reason: SOB/Wheeze Stop: 01/26/19 17:43 Albuterol (Duoneb) 3 ml NEB Q2D@1000,1400 KEV Stop: 01/28/19 10:44 Last Admin: 01/02/19 10:13 Dose: 3 ml Documented by: Amikacin Sulfate (Amikin) 250 mg INH Q48H KEV Stop: 01/28/19 11:29 Last Admin: 12/31/18 12:10 Dose: 250 mg Documented by: Azithromycin (Zithromax) 500 mg PO Q24H KEV Stop: 01/03/19 15:59 Dextrose (Dextrose 50%) 25 - 50 ml IV UD PRN; Protocol PRN Reason: Hypoglycemia Protocol Stop: 01/27/19 01:59 Ethambutol HCl (Myambutol) 800 mg PO HS [facility] Stop: 01/26/19 20:59 Last Admin: 01/01/19 20:56 Dose: 800 mg Documented by: Ethambutol HCl (Myambutol) 200 mg PO [facility] Stop: 01/26/19 20:59 Last Admin: 01/01/19 20:59 Dose: 200 mg Documented by: Glucagon (Glucagen) 1 mg IM UD PRN; Protocol PRN Reason: Hypoglycemia Protocol Stop: 01/27/19 01:59 Glucose (Glucose 40%) 15 - 30 gm PO UD PRN; Protocol PRN Reason: Hypoglycemia Protocol Stop: 01/27/19 01:59 Glucose (Dex4 Glucose) 4 - 8 tabs PO UD PRN; Protocol PRN Reason: Hypoglycemia Protocol Stop: 01/27/19 01:59 Cefepime HCl 2,000 mg/ Syringe 20 mls @ 5 mls/min IV Q12H KEV; Protocol Stop: 01/03/19 18:59 Last Admin: 01/02/19 10:18 Dose: 5 mls/min Documented by: Heparin Sodium/Dextrose (Heparin Sodium/Dextrose) 25,000 units in 500 mls @ 25 mls/hr IV .Q20H KEV; Protocol Stop: 01/29/19 09:14 Last Titration: 01/02/19 06:59 Dose: 1,250 units/hr, 25 mls/hr Documented by: Insulin Aspart (Novolog Flexpen) 0 units SC DAILY@1630,2100 [facility] Stop: 02/01/19 16:29 Insulin Aspart (Novolog Flexpen) 0 units SC DAILY@0730,1130 [facility] Stop: 01/30/19 11:29 Insulin Human NPH (Novolin N Nph) 12 units SC DAILY [facility]; Protocol Stop: 01/31/19 08:59 Lansoprazole (Prevacid) 30 mg NG QAM KEV; Protocol Stop: 01/27/19 13:59 Last Admin: 01/02/19 07:40 Dose: 30 mg Documented by: Magnesium Oxide (Mag-Ox) 400 mg PO [facility] Stop: 01/27/19 20:59 Last Admin: 01/01/19 20:55 Dose: 400 mg Documented by: Metoprolol Tartrate (Lopressor) 25 mg PO BID KEV Stop: 01/29/19 08:59 Last Admin: 01/02/19 07:40 Dose: 25 mg Documented by: Miscellaneous (Carbohydrates For Hypoglycemia) 15 - 30 gm PO PRN PRN PRN Reason: Hypoglycemia Treatment Stop: 01/27/19 01:59 Last Admin: 12/31/18 20:40 Dose: 15 gm Documented by: Miscellaneous Information (Cefepime Consult Active) 1 ea N/A UD PRN PRN Reason: Consult Stop: 01/26/19 16:02 Miscellaneous Information (Consult Glycemic Management Pharmacy) 1 ea N/A UD PRN PRN Reason: Consult Stop: 01/27/19 01:59 Prednisone (Prednisone) 30 mg NG DAILY@0900 [facility]; Taper Stop: 01/09/19 08:59 Last Admin: 01/02/19 07:40 Dose: 30 mg Documented by: Prednisone (Prednisone) 10 mg NG DAILY [facility] Stop: 02/08/19 08:59 Rifampin (Rifampin) 600 mg PO [facility] Stop: 01/03/19 20:59 Last Admin: 01/01/19 20:59 Dose: 600 mg Documented by: PG Care Time/CCT Total # of Minutes Spent Total Time Spent with Patient: Total time spent is greater than 50% in coordination of care (as documented) at patient's floor/unit and/or counseling patient: Resident Activity Tracking Resident Involvement: Resident Care Provided Care Provided: Adult Hospital Medicine
[2019-01-02] MEDS: ALBUT/IPRATROP 3MG/0.5MG NEB 3 ML VIAL NEB SCH ×2 (10:13→14:26)
[2019-01-02] MEDS: CEFEPIME 2,000 MG in SYRINGE 7.5 ML IV SCH ×2 (10:18→22:46)
[2019-01-02] MEDS: AMIKACIN 250 MG/ML INH SCH (12:49)
[2019-01-02 13:11] LABS: Partial Thromboplastin Ratio 1.8
[2019-01-02 13:38] LABS: Partial Thromboplastin Time 49.6 Seconds (21.0-31.0)
--- NOTE | 2019-01-02 16:08 | Infectious Disease Progress Nt ---
Date of Service January 02, 2019 Assessment & Plan (1) Pneumonia: 78 yo female with severe COPD now with acute respiratory failure and pneumonia with broad cultures so far positive for Pseudomonas. Continue cefepime and treatment for RAUL. Likely in the range of 7 to 10 days of cefepime for pseudomonal infection. (2) RAUL (mycobacterium avium-intracellulare) infection: Subjective Patient seen in follow-up for pneumonia and possible RAUL infection. Patient feels better this morning. Notes she did keep her CPAP on most of the night but also states despite this did not sleep well. She does report her breathing is improved. No discomfort from extubation. Has not tried to get out of bed yet today. Review of Systems Review of Systems: All systems reviewed & are unremarkable except as noted in HPI & below Physical Exam Constitutional: WD/WN, vitals as above comfortable; no acute distress Eyes: PERRL, conjunctivae normal, anicteric sclerae ENMT: external ear and nose normal, oropharynx normal Neck: trachea midline, no thyromegaly neck nontender Respiratory: no respiratory distress and does not use accessory muscles Auscultation: + diminished lung sounds Cardiovascular: Rate/Rhythm: regular rate and regular rhythm Heart Sounds: normal S1 and normal S2; no gallop, no murmur and no cardiac rub Vessels: normal peripheral pulses; no JVD Gastrointestinal (Abdomen): normal bowel sounds, soft, nontender, no hepatosplenomegaly Musculoskeletal: no cyanosis or clubbing, extremities motor strength 5/5 Spine: thoracic spine normal to inspection and lumbar spine normal to inspection; no cervical spinal tenderness Skin: no rashes, warm and dry normal turgor; no lesions Neurologic: patellar DTR's 2+ bilat, sensation intact no focal motor deficits Psychiatric: A+Ox3, euthymic affect Orientation: cooperative Lymphatic: no cervical or axillary lymphadenopathy no inguinal lymphadenopathy Results & Data Vital Signs (Past 12 Hours) Vital Signs Temp Pulse Pulse Pulse Resp BP Pulse Ox 01/02/19 15:43 36.7 C 118 H 18 125/67 90 01/02/19 15:00 100 H 01/02/19 14:26 106 H 22 92 01/02/19 12:51 90 20 93 01/02/19 10:53 36.7 C 94 H 20 114/70 91 01/02/19 07:48 96 H 01/02/19 07:02 36.6 C 113 H 19 128/66 95 Laboratory Results Short CBC 01/02/19 Range/Units 05:46 WBC 11.20 H (4.8-10.8) K/uL Hgb 10.5 L (12.0-16.0) g/dL Hct 35.0 L (37-47) % Plt Count 213 (130-400) K/uL BMP 01/02/19 05:46 Sodium 140 Potassium 3.6 Chloride 95 L Carbon Dioxide 43 H* BUN 22 H Creatinine 0.77 Glucose 111 H Calcium 9.0 Diagnostic Findings Microbiology 12/27/18 13:05 Blood Aerobic Blood Culture - Final No growth in Aerobic bottle after 5 days. 12/27/18 13:05 Blood Anaerobic Blood Culture - Final No growth in Anaerobic bottle after 5 days. 12/27/18 13:17 Blood Aerobic Blood Culture - Final No growth in Aerobic bottle after 5 days. 12/27/18 13:17 Blood Anaerobic Blood Culture - Final 12/27/18 18:10 Bronch Wash,Left Lower Lobe Acid Fast Bacilli Smear - Final 12/27/18 18:10 Bronch Wash,Left Lower Lobe Acid Fast Bacilli Culture - Preliminary No Acid-Fast Bacilli Isolated - Report 1, Additional Report to Follow. 12/27/18 18:10 Bronch Wash,Left Lower Lobe Fungal Smear - Final 12/27/18 18:10 Bronch Wash,Left Lower Lobe Fungal Culture - Preliminary No yeast or fungus isolated - Report 1, Additional Report to Follow. 12/27/18 18:10 Bronch Wash,Left Lower Lobe Gram Stain - Final 12/27/18 18:10 Bronch Wash,Left Lower Lobe Bronchoalveolar Lavage Culture - Final Pseudomonas aeruginosa PG Care Time/CCT Total # of Minutes Spent Total Time Spent with Patient: Total time spent is greater than 50% in coordination of care (as documented) at patient's floor/unit and/or counseling patient: (1) Pneumonia Laterality: unspecified laterality Lung location: unspecified part of lung Pneumonia type: due to unspecified organism Qualified Code(s): J18.9 - Pneumonia, unspecified organism
[2019-01-02] MEDS: AZITHROMYCIN 250 MG TAB PO SCH (16:16)
[2019-01-02] MEDS ORDERED: INSULIN ASPART 100 UNITS/ML 3 ML PEN SC SCH (16:30)
[2019-01-02] MEDS ORDERED: METOPROLOL TARTRATE 1 MG/ML VIAL IV ONE ×2 (16:50→18:46)
[2019-01-02] MEDS: rifAMPin 300 MG CAPSULE PO SCH (20:40)
[2019-01-02] MEDS: ETHAMBUTOL HCL 400 MG TAB PO SCH (20:41)
[2019-01-02] MEDS: ETHAMBUTOL HCL 100 MG PO SCH (20:41)
[2019-01-02] MEDS: MAGNESIUM OXIDE 400 MG TAB PO SCH (20:42)
[2019-01-03 06:37] LABS: Hematocrit (blood only) 33.5 % (37-47); Hemoglobin 9.8 g/dL (12.0-16.0); Mean Corpuscular Hemoglobin 27.9 pg (25-34); Mean Corpuscular Hgb Conc 29.3 g/dL (32-36); Mean Corpuscular Volume 95.4 fL (80-100); Platelet Count 208 K/uL (130-400); RDW Coefficient of Variation 14.1 % (11.5-14.5); RDW Standard Deviation 48.5 fL (36.4-46.3); Red Blood Count 3.51 M/uL (4.2-5.4); White Blood Count 9.76 K/uL (4.8-10.8)
[2019-01-03 06:57] LABS: Partial Thromboplastin Ratio 1.8
[2019-01-03 07:13] LABS: BUN Creatinine Ratio 20.5 (10-20); Calcium 8.6 mg/dl (8.5-10.1); Creatinine Clr Calc Pharmacy 50.7 ml/min; Est GFR (African American) 71.9; Est GFR (Non-African American) 62.1; Potassium 3.6 mmol/L (3.5-5.1)
[2019-01-03 07:27] LABS: Partial Thromboplastin Time 48.3 Seconds (21.0-31.0)
[2019-01-03] MEDS: predniSONE 10 MG TABLET NG SCH (08:46)
[2019-01-03] MEDS: METOPROLOL TARTRATE 25 MG TAB PO SCH ×2 (08:46→20:57)
[2019-01-03] MEDS: LANSOPRAZOLE 30 MG SOLTAB NG SCH (08:47)
--- NOTE | 2019-01-03 08:49 | Family Medicine Progress Note ---
Date of Service January 03, 2019 Assessment & Plan (1) COPD (chronic obstructive pulmonary disease): Elderly female with past medical history of severe COPD on 4L at home, HTN, T2DM p/w acute hypoxic hypercapnic respiratory failure requiring ICU stay with intubation. COPD exacerbation Likely secondary to pneumonia. Patient status post bronchoscopy, cultures show pansensitive Pseudomonas. -Back to baseline oxygen requirements -Prednisone 30 mg daily, will begin prednisone taper tomorrow -Albuterol and DuoNebs as needed. -Infectious disease consulted appreciate updated recommendations as we cannot start anticoagulation on her current medications -Continue amikacin, ethambutol, rifampin for RAUL suspect on CT findings. DC pending results of MAC culture -Cefepime for Pseudomonas in sputum culture -Monitor renal function while on amikacin Acute hypoxic hypercapnic respiratory failure -Extubated on 12/30 -Pt continuing to retain CO2 overnight as she does not tolerate use of CPAP/BIPAP. -Using her CPAP more consistently Paroxysmal A. fib with RVR--suspected based on tele monitoring -Converted CCBs to lopressor BID and heparin drip for now -Will need to discuss anticoagulation options. Due to current antibiotics, unable to use DOACs. -No EKG evidence of afib. Pt has had episodes of rapid ventricular rate; EKG repeated on 12/31 and revealed sinus rhythm with PACs -Considering high ventricular rates likely would benefit from anticoagulation Anticoagulation We had a discussion with pharmacy this morning regarding patient's anticoagulation. Given that she is on rifampin to ask her contraindicated, warfarin is not an ideal choice. Until her antibiotics were de-escalated really our options consist of high-dose Lovenox or heparin drip. Given that she has IV access, and will be remaining inpatient for the time being we will continue heparin drip -Continue heparin drip for anticoagulation -Start warfarin low dose normogram -PT/INR daily Hypertension Heart rates have been better controlled -Continue lopressor 50 BID History of fatty liver disease -Trend LFTs and follow as outpatient Diabetes type 2 -Last A1c 7.27 August 2018 -Glycemic consult; ISS FENa: Diabetes type 2 Code Status: DNR/DNI DVT PPX: Low-dose heparin PT/OT:Ordered Dispo: PCU pending clinical improvement Carlo Peña MD PGY 2, FCM This chart was completed utilizing [employer] voice recognition software. Grammatical errors, random word insertions, pronoun errors, and in complete sentences are an occasional consequence of the system. Any questions or concerns about the content, text, or information contained within the body of this dictation should be addressed directly to the physician for clarification. Supervising Physician Co-Signing Physician Notes Patient seen and examined with Dr. Peña. I agree with their exam findings, review of systems, assessment and plan. I have personally reviewed the lab work and imaging from today. patient stable, breathing well at the bedside, answered his questions reviewed tele, HR better controlled on Lopressor 50mg BID Exam: elderly female, no acute distress, lungs diminished, some crackles in bases, no wheezing, normal resp effort heart irregular irregular, no murmurs, abdomen soft, NT, ND - Acute on chronic hypoxic respiratory failure improved, was intubated earlier in admission, no stable on nasal canula due to pneumonia, Pseudomonas on sputum culture, treating with Cefepime for 10 days total, last day 01/06 - Acute on chronic hypercapnic respiratory failure encouraged patient to wear NIPPV at night to help control CO2 more compliant with mask the past two nights, showing improvement - Pneumonia: continue Cefepime 10 days, no fever, WBC normal at 9k - Possible RAUL infection: awaiting final AFB culture, continue treatment for time being - Possible atrial fibrillation, paroxysmal: EKG have shown PAC and MAT had reported atrial fibrillation with rates in 150's earlier in stay continue rate control with metoprolol increased metoprolol to 50mg BID on 01/02 with good results anticoagulation with heparin drip for now, start Coumadin today Subjective Patient sitting up in bed this morning in no acute distress. Patient reports doing well overnight without any acute events. Patient has a Amezcua in place with red-orange urine, stooling, tolerating diet, sleeping well overnight. Patient has been wearing her CPAP mask more than likely response for part of her improvement, she is now down to her baseline 4 L of nasal cannula. No acute concerns all questions answered Physical Exam Physical Exam: General: Elderly female sitting upright in a chair in no acute distress HEENT: Normocephalic atraumatic Neck: Normal visual inspection Cardiac: Regular rate and rhythm I did not appreciate significant murmurs rubs or gallops, normal S1, normal S2, 1+ pedal edema, no calf tenderness Respiratory: Rhonchorous throughout bibasilar lung baez with symmetrical chest rise, nonlabored breathing, positive egophony bibasilar lung baez GI: Bowel sounds present, soft, nontender, nondistended MSK: Moves all extremities Neuro: AAO x2 Psych: Calm, cooperative Results & Data Vital Signs (Past 12 Hours) Vital Signs Temp Pulse Pulse Resp BP Pulse Ox 01/03/19 07:11 36.7 C 90 20 127/70 96 01/03/19 03:24 36.5 C 101 H 20 134/72 88 L 01/03/19 03:01 101 H 16 91 01/03/19 00:00 77 01/02/19 23:57 73 20 94 Laboratory Results 01/03/19 01/03/19 01/03/19 Range/Units 11:35 07:28 05:57 WBC (4.8-10.8) K/uL RBC (4.2-5.4) M/uL Hgb (12.0-16.0) g/dL Hct (37-47) % MCV (80-100) fL MCH (25-34) pg MCHC (32-36) g/dL RDW Std Deviation (36.4-46.3) fL RDW Coeff of Nataly (11.5-14.5) % Plt Count (130-400) K/uL MPV (7.4-10.4) fL APTT 48.3 H* (21.0-31.0) Seconds PTT Ratio 1.8 Sodium (136-145) mmol/L Potassium (3.5-5.1) mmol/L Chloride (98-107) mmol/L Carbon Dioxide (21-32) mmol/L Anion Gap (3-11) BUN (7-18) mg/dl Creatinine (0.6-1.2) mg/dl Est Cr Clr Drug Dosing ml/min Est GFR ( Amer) Est GFR (Non-Af Amer) BUN/Creatinine Ratio (10-20) Glucose (70-99) mg/dl POC Glucose 149 H 133 H (70-99) Calcium (8.5-10.1) mg/dl 01/03/19 01/03/19 01/02/19 Range/Units 05:57 05:57 23:07 WBC 9.76 (4.8-10.8) K/uL RBC 3.51 L (4.2-5.4) M/uL Hgb 9.8 L (12.0-16.0) g/dL Hct 33.5 L (37-47) % MCV 95.4 (80-100) fL MCH 27.9 (25-34) pg MCHC 29.3 L (32-36) g/dL RDW Std Deviation 48.5 H (36.4-46.3) fL RDW Coeff of Nataly 14.1 (11.5-14.5) % Plt Count 208 (130-400) K/uL MPV 10.0 (7.4-10.4) fL APTT (21.0-31.0) Seconds PTT Ratio Sodium 140 (136-145) mmol/L Potassium 3.6 (3.5-5.1) mmol/L Chloride 95 L (98-107) mmol/L Carbon Dioxide 40 H (21-32) mmol/L Anion Gap 5.0 (3-11) BUN 18 (7-18) mg/dl Creatinine 0.89 (0.6-1.2) mg/dl Est Cr Clr Drug Dosing 50.7 ml/min Est GFR ( Amer) 71.9 Est GFR (Non-Af Amer) 62.1 BUN/Creatinine Ratio 20.5 H (10-20) Glucose 119 H (70-99) mg/dl POC Glucose 129 H (70-99) Calcium 8.6 (8.5-10.1) mg/dl 01/02/19 01/02/19 01/02/19 Range/Units 20:29 16:13 12:35 WBC (4.8-10.8) K/uL RBC (4.2-5.4) M/uL Hgb (12.0-16.0) g/dL Hct (37-47) % MCV (80-100) fL MCH (25-34) pg MCHC (32-36) g/dL RDW Std Deviation (36.4-46.3) fL RDW Coeff of Nataly (11.5-14.5) % Plt Count (130-400) K/uL MPV (7.4-10.4) fL APTT 49.6 H* (21.0-31.0) Seconds PTT Ratio 1.8 Sodium (136-145) mmol/L Potassium (3.5-5.1) mmol/L Chloride (98-107) mmol/L Carbon Dioxide (21-32) mmol/L Anion Gap (3-11) BUN (7-18) mg/dl Creatinine (0.6-1.2) mg/dl Est Cr Clr Drug Dosing ml/min Est GFR ( Amer) Est GFR (Non-Af Amer) BUN/Creatinine Ratio (10-20) Glucose (70-99) mg/dl POC Glucose 142 H 128 H (70-99) Calcium (8.5-10.1) mg/dl Medications Administered Current Inpatient Medications Albuterol (Ventolin 0.5% 2.5mg/0.5ml) 2.5 mg NEB Q2H PRN PRN Reason: SOB/Wheeze Stop: 01/26/19 17:43 Albuterol (Duoneb) 3 ml NEB Q2D@1000,1400 [facility] Stop: 01/28/19 10:44 Last Admin: 01/02/19 14:26 Dose: 3 ml Documented by: Amikacin Sulfate (Amikin) 250 mg INH Q48H [facility] Stop: 01/28/19 11:29 Last Admin: 01/02/19 12:49 Dose: 250 mg Documented by: Azithromycin (Zithromax) 500 mg PO Q24H [facility] Stop: 01/05/19 15:59 Last Admin: 01/02/19 16:16 Dose: 500 mg Documented by: Dextrose (Dextrose 50%) 25 - 50 ml IV UD PRN; Protocol PRN Reason: Hypoglycemia Protocol Stop: 01/27/19 01:59 Ethambutol HCl (Myambutol) 800 mg PO HS [facility] Stop: 01/26/19 20:59 Last Admin: 01/02/19 20:41 Dose: 800 mg Documented by: Ethambutol HCl (Myambutol) 200 mg PO HS [facility] Stop: 01/26/19 20:59 Last Admin: 01/02/19 20:41 Dose: 200 mg Documented by: Glucagon (Glucagen) 1 mg IM UD PRN; Protocol PRN Reason: Hypoglycemia Protocol Stop: 01/27/19 01:59 Glucose (Glucose 40%) 15 - 30 gm PO UD PRN; Protocol PRN Reason: Hypoglycemia Protocol Stop: 01/27/19 01:59 Glucose (Dex4 Glucose) 4 - 8 tabs PO UD PRN; Protocol PRN Reason: Hypoglycemia Protocol Stop: 01/27/19 01:59 Cefepime HCl 2,000 mg/ Syringe 20 mls @ 5 mls/min IV Q12H [facility]; Protocol Stop: 01/05/19 21:59 Last Admin: 01/03/19 08:56 Dose: 5 mls/min Documented by: Heparin Sodium/Dextrose (Heparin Sodium/Dextrose) 25,000 units in 500 mls @ 25 mls/hr IV .Q20H [facility]; Protocol Stop: 01/29/19 09:14 Last Titration: 01/03/19 09:14 Dose: 1,250 units/hr, 25 mls/hr Documented by: Insulin Aspart (Novolog Flexpen) 0 units SC DAILY@1630,2100 [facility] Stop: 02/01/19 16:29 Last Admin: 01/02/19 20:42 Dose: 4 units Documented by: Insulin Aspart (Novolog Flexpen) 0 units SC DAILY@0730,1130 [facility] Stop: 01/30/19 11:29 Last Admin: 01/03/19 12:19 Dose: 5 units Documented by: Insulin Human NPH (Novolin N Nph) 12 units SC DAILY [facility]; Protocol Stop: 01/31/19 08:59 Last Admin: 01/03/19 08:50 Dose: 12 units Documented by: Lansoprazole (Prevacid) 30 mg NG QAM [facility]; Protocol Stop: 01/27/19 13:59 Last Admin: 01/03/19 08:47 Dose: 30 mg Documented by: Magnesium Oxide (Mag-Ox) 400 mg PO HS [facility] Stop: 01/27/19 20:59 Last Admin: 01/02/19 20:42 Dose: 400 mg Documented by: Metoprolol Tartrate (Lopressor) 50 mg PO BID [facility] Stop: 02/01/19 20:59 Last Admin: 01/03/19 08:46 Dose: 50 mg Documented by: Miscellaneous (Carbohydrates For Hypoglycemia) 15 - 30 gm PO PRN PRN PRN Reason: Hypoglycemia Treatment Stop: 01/27/19 01:59 Last Admin: 12/31/18 20:40 Dose: 15 gm Documented by: Miscellaneous Information (Cefepime Consult Active) 1 ea N/A UD PRN PRN Reason: Consult Stop: 01/26/19 16:02 Miscellaneous Information (Consult Glycemic Management Pharmacy) 1 ea N/A UD PRN PRN Reason: Consult Stop: 01/27/19 01:59 Prednisone (Prednisone) 20 mg NG DAILY@0900 [facility]; Taper Stop: 01/09/19 08:59 Last Admin: 01/03/19 08:46 Dose: 20 mg Documented by: Prednisone (Prednisone) 10 mg NG DAILY [facility] Stop: 02/08/19 08:59 Rifampin (Rifampin) 600 mg PO HS [facility] Stop: 01/05/19 20:59 Last Admin: 01/02/19 20:40 Dose: 600 mg Documented by: PG Care Time/CCT Total # of Minutes Spent Total Time Spent with Patient: Total time spent is greater than 50% in coordination of care (as documented) at patient's floor/unit and/or counseling patient: Resident Activity Tracking Resident Involvement: Resident Care Provided Care Provided: Adult Hospital Medicine
[2019-01-03] MEDS: INSULIN HUMAN NPH SC SCH (08:50)
[2019-01-03] MEDS: INSULIN ASPART 100 UNITS/ML 3 ML PEN SC SCH ×4 (08:51→20:57)
[2019-01-03] MEDS: CEFEPIME 2,000 MG in SYRINGE 7.5 ML IV SCH ×2 (08:56→22:23)
--- NOTE | 2019-01-03 14:52 | Pharmacy Report ---
Pharmacy Glycemic Short Note 2 - Date of Service January 03, 2019 - Glycemic Short BSG Results (Last 24 hours): 01/02/19 01/02/19 01/02/19 16:13 20:29 23:07 Glucose POC Glucose 128 H 142 H 129 H 01/03/19 01/03/19 01/03/19 05:57 07:28 11:35 Glucose 119 H POC Glucose 133 H 149 H OUTPATIENT ANTIDIABETIC REGIMEN: * Metformin 500mg PO BID * A1c = 7.4% 12/28/18 ASSESSMENT: 01/03 * Patient received 34 units of insulin yesterday, 18 of which were basal NPH with prednisone * Patient's BSGs were acceptable yesterday ranging from 107-142 yesterday. * Prednisone tapered to 20 mg this morning, adjust NPH dose to 12 units * Carb ratio was loosened with dinner and HS checks due to trend for lower BSGs in the evening- will continue this tonight 01/01 * Patient received total of 32 units of insulin yesterday, 13 of which were basal * Hypoglycemic event yesterday PM, fasting this morning 98, patient was switched to 18 units of NPH to coincide with prednisone dose and will hopefully avoid steroid wearing off/hypoglycemia in the morning * Lunchtime BSG today 131, will continue current CF/CR today 12/31 * Patient received total of 34 units of insulin yesterday, of which 15 were basal insulin * Fasting BSG this AM 92 mg/dL - will scale back on Lantus for today, will wait to ensure BSGs trending up first * Lunchtime BSG trending up to 200s, continue same CF/CR but added Lantus back on - did small reduction from 15 units to 13 units as BSGs were in 70s overnight 12/30 * Patient transitioned off drip yesterday, received 10 units of Lantus plus drip and 16 units of SSI * Fasting BSG this AM 102 mg/dL - continues on prednisone 40 mg daily then tapering * Would have expected higher fasting with steroids on board, waited until lunch to reassess Lantus needs. BSG at lunch 169 mg/dL - diet continued * Will order Lantus 15 units x 1 for now also tighten CR at dinner. Will keep at Q4 hr checks since steroids on board, may d/c tomorrow if BSGs stable 12/29 * BSGs well controlled with insulin drip. Drip running at 0.4-0.6unit/hr over last 6+ hrs * Pt extubated at this time, continuous tube feeds off, prednisone taper continues, ps aeruginosa in BAL cx * Will transition to SQ regimen at this time. * Basal dose will be based upon latest drip rates. Bolus dosing will be based upon wt and mod-severe stress level given current severity of illness and steroid provision 12/28 * Type 2 diabetic admitted for respiratory failure, hypercapneic resp failure w/ resp acidosis leading to intubation/mech ventilation * IV steroid therapy and abx therapy initiated for CAP with risk factors for resistant organism + treatment for possible RAUL pulm infxn * IV insulin drip initiated per ICU protocol for BSG > 220 * Insulin drip continues at this time at 1.85 units/hr, last 3 BSGs in goal range at this rate and monitoring may decrease to Q 2 hrs in near future * Pt failed SBT today and will remain intubated - reassess readiness for extubation tomorrow AM * Steroid regimen changed from Solu-medrol 30mg TID to Prednisone taper * Tube feedings planned for later today as pt not ready for extubation PLAN FOR INPATIENT GLYCEMIC CONTROL: * NPH 12 units qAM * Novolog SQ ACHS * Goal range 110-140 * CF 30 mg/dL/unit * CR 1 unit per 10 gm CHO consumed at breakfast/lunch; 1 unit per 12 gm CHO at dinner/hs 8
[2019-01-03] MEDS: AZITHROMYCIN 250 MG TAB PO SCH (15:42)
[2019-01-03] MEDS ORDERED: WARFARIN SOD 3 MG TAB PO SCH (16:00)
[2019-01-03] MEDS: HEPARIN SODIUM/DEXTROSE 25,000 UNITS/500 ML BAG IV SCH (18:37)
[2019-01-03] MEDS: rifAMPin 300 MG CAPSULE PO SCH (20:56)
[2019-01-03] MEDS: ETHAMBUTOL HCL 400 MG TAB PO SCH (20:56)
[2019-01-03] MEDS: MAGNESIUM OXIDE 400 MG TAB PO SCH (20:57)
[2019-01-03] MEDS: ETHAMBUTOL HCL 100 MG PO SCH (20:57)
[2019-01-04 06:16] LABS: Hematocrit (blood only) 31.7 % (37-47); Hemoglobin 9.4 g/dL (12.0-16.0); Mean Corpuscular Hemoglobin 28.6 pg (25-34); Mean Corpuscular Hgb Conc 29.7 g/dL (32-36); Mean Corpuscular Volume 96.4 fL (80-100); Mean Platelet Volume 9.8 fL (7.4-10.4); Platelet Count 211 K/uL (130-400); RDW Coefficient of Variation 14.3 % (11.5-14.5); RDW Standard Deviation 49.9 fL (36.4-46.3); Red Blood Count 3.29 M/uL (4.2-5.4); White Blood Count 10.34 K/uL (4.8-10.8)
[2019-01-04 06:53] LABS: Partial Thromboplastin Time 54.1 Seconds (21.0-31.0)
[2019-01-04] MEDS: INSULIN ASPART 100 UNITS/ML 3 ML PEN SC SCH ×4 (08:10→21:20)
[2019-01-04] MEDS: METOPROLOL TARTRATE 25 MG TAB PO SCH ×2 (08:11→21:22)
[2019-01-04] MEDS: INSULIN HUMAN NPH SC SCH (08:11)
[2019-01-04] MEDS: LANSOPRAZOLE 30 MG SOLTAB NG SCH (08:14)
[2019-01-04] MEDS: predniSONE 10 MG TABLET NG SCH (08:14)
--- NOTE | 2019-01-04 08:35 | Family Medicine Progress Note ---
Date of Service January 04, 2019 Assessment & Plan (1) COPD (chronic obstructive pulmonary disease): Elderly female with past medical history of severe COPD on 4L at home, HTN, T2DM p/w acute hypoxic hypercapnic respiratory failure requiring ICU stay with intubation. COPD exacerbation Likely secondary to pneumonia. Patient status post bronchoscopy, cultures show pansensitive Pseudomonas. -Back to baseline oxygen requirements -Pred taper initiated received prednisone 20 mg plus home daily 10 mg -On 10 mg daily at home -Albuterol and DuoNebs as needed. -Infectious disease consulted following recommendations -Continue amikacin, ethambutol, rifampin for RAUL suspect on CT findings. DC pending results of MAC culture -Cefepime for Pseudomonas in sputum culture -Monitor renal function while on amikacin Acute hypoxic hypercapnic respiratory failure -Extubated on 12/30 -Pt continuing to retain CO2 overnight as she does not tolerate use of CPAP/BIPAP. -Using her CPAP more consistently Paroxysmal A. fib with RVR--suspected based on tele monitoring No EKG evidence of afib. Pt has had episodes of rapid ventricular rate; EKG repeated on 12/31 and revealed sinus rhythm with PACs. Considering high vent ricular rates likely would benefit from anticoagulation. Due to current antibiotics, unable to use DOACs. Converted CCBs to lopressor BID and heparin bridge to warfarin. Anticoagulation We had a discussion with pharmacy this morning regarding patient's anticoagulation. Given that she is on rifampin to ask her contraindicated, warfarin is not an ideal choice. Until her antibiotics were de-escalated really our options consist of high-dose Lovenox or heparin drip. Given that she has IV access, and will be remaining inpatient for the time being we will continue heparin drip -Continue heparin drip for anticoagulation -Start warfarin low dose normogram -PT/INR daily -INR:1.1 -continue low dose normogram Hypertension Heart rates have been better controlled -Continue lopressor 50 BID History of fatty liver disease -Trend LFTs and follow as outpatient Diabetes type 2 -Last A1c 7.27 August 2018 -Glycemic consult; ISS FENa: Diabetes type 2 Code Status: DNR/DNI DVT PPX: Low-dose heparin/warfarin low dose normogram PT/OT:Ordered Dispo: PCU pending clinical improvement Carlo Peña MD PGY 2, FCM This chart was completed utilizing [employer] voice recognition software. Grammatical errors, random word insertions, pronoun errors, and in complete sentences are an occasional consequence of the system. Any questions or concerns about the content, text, or information contained within the body of this dictation should be addressed directly to the physician for clarification. Supervising Physician Co-Signing Physician Notes Patient seen and examined with Dr. Peña. I agree with their exam findings, review of systems, assessment and plan. I have personally reviewed the lab work and imaging from today. patient remains stable she is getting OOB to a chair each day breathing is slightly improved eating well no BM for a few days, will try bowel regimen Exam: elderly female, no acute distress, lungs diminished, some crackles in bases, no wheezing, normal resp effort heart irregular irregular, no murmurs, abdomen soft, NT, ND - Acute on chronic hypoxic respiratory failure improved, was intubated earlier in admission, no stable on nasal canula due to pneumonia, Pseudomonas on sputum culture, treating with Cefepime for 10 days total, last day 01/06 - Acute on chronic hypercapnic respiratory failure encouraged patient to wear NIPPV at night to help control CO2 more compliant with mask the past three nights, showing improvement - Pneumonia: continue Cefepime 10 days, no fever, WBC normal at 10k - Possible RAUL infection: awaiting final AFB culture, continue treatment for time being - Possible atrial fibrillation, paroxysmal: EKG have shown PAC and MAT had reported atrial fibrillation with rates in 150's earlier in stay continue rate control with metoprolol increased metoprolol to 50mg BID on 01/02 with good results anticoagulation with heparin drip for now, start Coumadin on 01/03, follow INR Subjective Patient sitting upright in her chair this morning in no acute distress. Patient reports no acute events overnight, reports breathing is subjectively improved. Patient continues to improve from a clinical standpoint. She is more compliant with wearing her CPAP at night. She reports voiding, stooling, tolerating her diet, sleeping well. All questions answered, no acute concerns. Physical Exam Physical Exam: General: Elderly female sitting upright in a chair in no acute distress HEENT: Normocephalic atraumatic Neck: Normal visual inspection Cardiac: Regular rate and rhythm I did not appreciate significant murmurs rubs or gallops, normal S1, normal S2, 1+ pedal edema, no calf tenderness Respiratory: Rhonchorous throughout bibasilar lung baez with symmetrical chest rise, nonlabored breathing, positive egophony bibasilar lung baez GI: Bowel sounds present, soft, nontender, nondistended MSK: Moves all extremities Neuro: AAO x2 Psych: Calm, cooperative Results & Data Vital Signs (Past 12 Hours) Vital Signs Temp Pulse Pulse Resp BP Pulse Ox 01/04/19 07:10 36.2 C L 95 H 16 136/72 99 01/04/19 03:42 35.8 C L 75 22 144/80 H 92 01/04/19 00:15 81 01/03/19 23:15 71 20 91 01/03/19 22:57 36.6 C 73 20 137/92 96 Laboratory Results 01/04/19 01/04/19 01/04/19 Range/Units 07:15 05:49 05:49 WBC 10.34 (4.8-10.8) K/uL RBC 3.29 L (4.2-5.4) M/uL Hgb 9.4 L (12.0-16.0) g/dL Hct 31.7 L (37-47) % MCV 96.4 (80-100) fL MCH 28.6 (25-34) pg MCHC 29.7 L (32-36) g/dL RDW Std Deviation 49.9 H (36.4-46.3) fL RDW Coeff of Nataly 14.3 (11.5-14.5) % Plt Count 211 (130-400) K/uL MPV 9.8 (7.4-10.4) fL APTT 54.1 H* (21.0-31.0) Seconds PTT Ratio 2.0 POC Glucose 159 H (70-99) 01/03/19 01/03/19 01/03/19 Range/Units 20:30 16:17 11:35 WBC (4.8-10.8) K/uL RBC (4.2-5.4) M/uL Hgb (12.0-16.0) g/dL Hct (37-47) % MCV (80-100) fL MCH (25-34) pg MCHC (32-36) g/dL RDW Std Deviation (36.4-46.3) fL RDW Coeff of Nataly (11.5-14.5) % Plt Count (130-400) K/uL MPV (7.4-10.4) fL APTT (21.0-31.0) Seconds PTT Ratio POC Glucose 125 H 143 H 149 H (70-99) Medications Administered Current Inpatient Medications Albuterol (Ventolin 0.5% 2.5mg/0.5ml) 2.5 mg NEB Q2H PRN PRN Reason: SOB/Wheeze Stop: 01/26/19 17:43 Albuterol (Duoneb) 3 ml NEB Q2D@1000,1400 [facility] Stop: 01/28/19 10:44 Last Admin: 01/02/19 14:26 Dose: 3 ml Documented by: Amikacin Sulfate (Amikin) 250 mg INH Q48H [facility] Stop: 01/28/19 11:29 Last Admin: 01/02/19 12:49 Dose: 250 mg Documented by: Azithromycin (Zithromax) 500 mg PO Q24H [facility] Stop: 01/05/19 15:59 Last Admin: 01/03/19 15:42 Dose: 500 mg Documented by: Dextrose (Dextrose 50%) 25 - 50 ml IV UD PRN; Protocol PRN Reason: Hypoglycemia Protocol Stop: 01/27/19 01:59 Ethambutol HCl (Myambutol) 800 mg PO HS [facility] Stop: 01/26/19 20:59 Last Admin: 01/03/19 20:56 Dose: 800 mg Documented by: Ethambutol HCl (Myambutol) 200 mg PO HS [facility] Stop: 01/26/19 20:59 Last Admin: 01/03/19 20:57 Dose: 200 mg Documented by: Glucagon (Glucagen) 1 mg IM UD PRN; Protocol PRN Reason: Hypoglycemia Protocol Stop: 01/27/19 01:59 Glucose (Glucose 40%) 15 - 30 gm PO UD PRN; Protocol PRN Reason: Hypoglycemia Protocol Stop: 01/27/19 01:59 Glucose (Dex4 Glucose) 4 - 8 tabs PO UD PRN; Protocol PRN Reason: Hypoglycemia Protocol Stop: 01/27/19 01:59 Cefepime HCl 2,000 mg/ Syringe 20 mls @ 5 mls/min IV Q12H [facility]; Protocol Stop: 01/05/19 21:59 Last Admin: 01/03/19 22:23 Dose: 5 mls/min Documented by: Heparin Sodium/Dextrose (Heparin Sodium/Dextrose) 25,000 units in 500 mls @ 25 mls/hr IV .Q20H [facility]; Protocol Stop: 01/29/19 09:14 Last Titration: 01/04/19 07:18 Dose: 1,250 units/hr, 25 mls/hr Documented by: Insulin Aspart (Novolog Flexpen) 0 units SC DAILY@1630,2100 [facility] Stop: 02/01/19 16:29 Last Admin: 01/03/19 20:57 Dose: Not Given Documented by: Insulin Aspart (Novolog Flexpen) 0 units SC DAILY@0730,1130 [facility] Stop: 01/30/19 11:29 Last Admin: 01/04/19 08:10 Dose: 3 units Documented by: Insulin Human NPH (Novolin N Nph) 12 units SC DAILY [facility]; Protocol Stop: 01/31/19 08:59 Last Admin: 01/04/19 08:11 Dose: 12 units Documented by: Lansoprazole (Prevacid) 30 mg NG QAM [facility]; Protocol Stop: 01/27/19 13:59 Last Admin: 01/04/19 08:14 Dose: 30 mg Documented by: Magnesium Oxide (Mag-Ox) 400 mg PO HS [facility] Stop: 01/27/19 20:59 Last Admin: 01/03/19 20:57 Dose: 400 mg Documented by: Metoprolol Tartrate (Lopressor) 50 mg PO BID [facility] Stop: 02/01/19 20:59 Last Admin: 01/04/19 08:11 Dose: 50 mg Documented by: Miscellaneous (Carbohydrates For Hypoglycemia) 15 - 30 gm PO PRN PRN PRN Reason: Hypoglycemia Treatment Stop: 01/27/19 01:59 Last Admin: 12/31/18 20:40 Dose: 15 gm Documented by: Miscellaneous Information (Cefepime Consult Active) 1 ea N/A UD PRN PRN Reason: Consult Stop: 01/26/19 16:02 Miscellaneous Information (Consult Glycemic Management Pharmacy) 1 ea N/A UD PRN PRN Reason: Consult Stop: 01/27/19 01:59 Miscellaneous Information (Low Intensity Warfarin Nomogra) 1 ea N/A DAILY@1400 [facility]; Protocol Stop: 02/02/19 13:59 Last Admin: 01/03/19 16:01 Dose: 1 ea Documented by: Prednisone (Prednisone) 20 mg NG DAILY@0900 [facility]; Taper Stop: 01/09/19 08:59 Last Admin: 01/04/19 08:14 Dose: 20 mg Documented by: Prednisone (Prednisone) 10 mg NG DAILY [facility] Stop: 02/08/19 08:59 Rifampin (Rifampin) 600 mg PO HS [facility] Stop: 01/05/19 20:59 Last Admin: 01/03/19 20:56 Dose: 600 mg Documented by: PG Care Time/CCT Total # of Minutes Spent Total Time Spent with Patient: Total time spent is greater than 50% in coordination of care (as documented) at patient's floor/unit and/or counseling patient: Resident Activity Tracking Resident Involvement: Resident Care Provided Care Provided: Adult Hospital Medicine
[2019-01-04] MEDS: ALBUT/IPRATROP 3MG/0.5MG NEB 3 ML VIAL NEB SCH ×2 (10:40→15:15)
[2019-01-04 11:00] LABS: INR 1.1 (0.9-1.1); Prothrombin Time 11.4 Seconds (9.0-12.0)
[2019-01-04] MEDS: CEFEPIME 2,000 MG in SYRINGE 7.5 ML IV SCH ×2 (12:00→21:26)
[2019-01-04] MEDS: HEPARIN SODIUM/DEXTROSE 25,000 UNITS/500 ML BAG IV SCH (13:20)
[2019-01-04] MEDS: AMIKACIN 250 MG/ML INH SCH (15:06)
[2019-01-04] MEDS: AZITHROMYCIN 250 MG TAB PO SCH (15:28)
[2019-01-04] MEDS ORDERED: WARFARIN SOD 3 MG TAB PO ONE (16:00)
[2019-01-04] MEDS: ETHAMBUTOL HCL 400 MG TAB PO SCH (21:21)
[2019-01-04] MEDS: MAGNESIUM OXIDE 400 MG TAB PO SCH (21:23)
[2019-01-04] MEDS: rifAMPin 300 MG CAPSULE PO SCH (21:24)
[2019-01-04] MEDS: ETHAMBUTOL HCL 100 MG PO SCH (21:25)
[2019-01-05 06:01] LABS: Hematocrit (blood only) 30.8 % (37-47); Hemoglobin 9.3 g/dL (12.0-16.0); Mean Corpuscular Hemoglobin 29.1 pg (25-34); Mean Corpuscular Hgb Conc 30.2 g/dL (32-36); Mean Corpuscular Volume 96.3 fL (80-100); Mean Platelet Volume 9.5 fL (7.4-10.4); Platelet Count 193 K/uL (130-400); RDW Coefficient of Variation 14.2 % (11.5-14.5); RDW Standard Deviation 49.9 fL (36.4-46.3); White Blood Count 9.06 K/uL (4.8-10.8)
[2019-01-05 06:31] LABS: INR 1.2 (0.9-1.1); Partial Thromboplastin Ratio 2.2; Prothrombin Time 12.2 Seconds (9.0-12.0)
[2019-01-05 06:44] LABS: Albumin Level 2.2 gm/dl (3.4-5.0); Bilirubin Direct 0.3 mg/dl (0-0.2); Creatinine Clr Calc Pharmacy 58.6 ml/min; Est GFR (African American) 85.7
[2019-01-05 06:47] LABS: Bilirubin,Total 0.6 mg/dl (0.2-1); Total Protein 6.2 gm/dl (6.4-8.2)
[2019-01-05 06:50] LABS: Partial Thromboplastin Time 58.7 Seconds (21.0-31.0)
--- NOTE | 2019-01-05 07:51 | Family Medicine Progress Note ---
Date of Service January 05, 2019 Assessment & Plan (1) COPD (chronic obstructive pulmonary disease): Elderly female with past medical history of severe COPD on 4L at home, HTN, T2DM p/w acute hypoxic hypercapnic respiratory failure requiring ICU stay with intubation. COPD exacerbation secondary to pneumonia. Patient status post bronchoscopy, cultures show pansensitive Pseudomonas. -Back to baseline oxygen requirements -Pred taper initiated received prednisone 20 mg plus home daily 10 mg -On 10 mg daily at home -Albuterol and DuoNebs as needed. #Pneumonia Previous ICU stay during which patient had a [place] B. Culture from bronchoscopy demonstrated pansensitive Pseudomonas. Patient has been on cefepime, will require 10 days total last day will be January 06. -Cefepime day 9 -Infectious disease consulted following recommendations -Continue amikacin, ethambutol, rifampin for RAUL suspect on CT findings. DC pending results of MAC culture -Cefepime for Pseudomonas in sputum culture -Monitor renal function while on amikacin Acute hypoxic hypercapnic respiratory failure -Extubated on 12/30 -Pt continuing to retain CO2 overnight as she does not tolerate use of CPAP/BIPAP. -Using her CPAP more consistently Paroxysmal A. fib with RVR--suspected based on tele monitoring No EKG evidence of afib. Pt has had episodes of rapid ventricular rate; EKG repeated on 12/31 and revealed sinus rhythm with PACs. Considering high ventricular rates likely would benefit from anticoagulation. Due to current antibiotics, unable to use DOACs. Converted CCBs to lopressor BID and heparin bridge to warfarin. Anticoagulation We had a discussion with pharmacy this morning regarding patient's anticoagulation. Given that she is on rifampin to ask her contraindicated, warfarin is not an ideal choice. Until her antibiotics were de-escalated really our options consist of high-dose Lovenox or heparin drip. Given that she has IV access, and will be remaining inpatient for the time being we will continue heparin drip -Continue heparin drip for anticoagulation -Start warfarin low dose normogram -PT/INR daily -INR:1.2 -continue low dose normogram Hypertension Heart rates have been better controlled -Continue lopressor 50 BID History of fatty liver disease -Trend LFTs and follow as outpatient Diabetes type 2 -Last A1c 7.27 August 2018 -Glycemic consult; ISS FENa: Diabetes type 2 Code Status: DNR/DNI DVT PPX: Low-dose heparin/warfarin low dose normogram PT/OT:Ordered Dispo: Downgrade to [facility], case management looking into SNF Carlo Peña MD PGY 2, FCM This chart was completed utilizing [employer] voice recognition software. Grammatical errors, random word insertions, pronoun errors, and in complete sentences are an occasional consequence of the system. Any questions or concerns about the content, text, or information contained within the body of this dictation should be addressed directly to the physician for clarification. Supervising Physician Co-Signing Physician Notes Patient seen and examined with Dr. Peña. I agree with their exam findings, review of systems, assessment and plan. I have personally reviewed the lab work and imaging from today. patient has more energy today, she is OOB in chair, walking with therapy breathing continues to improve a little each day, minimal cough, no fever appetite is slowly coming around reviewed tele, no events on monitor, HR controlled on Lopressor, d/w resident, downgrade to medical floor Exam: elderly female, no acute distress, lungs diminished, no wheezing, normal resp effort heart regular, S1 S2, no murmurs, abdomen soft, NT, ND - Acute on chronic hypoxic respiratory failure improved, was intubated earlier in admission, now stable on nasal canula due to pneumonia, Pseudomonas on sputum culture, treating with Cefepime for 10 days total, last day 01/06 normal respiratory effort all week, likely fully recovered from acute component - Acute on chronic hypercapnic respiratory failure encouraged patient to wear NIPPV at night to help control CO2 more compliant with mask the past four nights, showing improvement - Pneumonia: continue Cefepime 10 days, no fever, WBC normal at 10k, finish tomorrow - Possible RAUL infection: awaiting final AFB culture, continue treatment for time being and will likely continue on discharge - Possible atrial fibrillation, paroxysmal: EKG have shown PAC and MAT had reported atrial fibrillation with rates in 150's earlier in stay continue rate control with metoprolol increased metoprolol to 50mg BID on 01/02 with good results anticoagulation with heparin drip for now, start Coumadin on 01/03, follow INR daily okay to downgrade to medical floor today Subjective Patient sitting up in a chair this morning in no acute distress. Patient reports feeling significantly better, she has a papular step, her color has returned, she is more active, mentating better. Patient reports no acute events overnight, pain is well controlled, breathing is improved. Patient is still tolerating her diet, [place] in place, stooling, sleeping. All questions answered no acute concerns Physical Exam Physical Exam: General: Elderly female sitting upright in a chair in no acute distress HEENT: Normocephalic atraumatic Neck: Normal visual inspection Cardiac: Regular rate and rhythm I did not appreciate significant murmurs rubs or gallops, normal S1, normal S2, 1+ pedal edema, no calf tenderness Respiratory: Scattered rhonchi and bibasilar lung baez with symmetrical chest rise, nonlabored breathing, negative egophony. Overall respiratory exam continues to improve GI: Bowel sounds present, soft, nontender, nondistended MSK: Moves all extremities Neuro: AAO x2 Psych: Calm, cooperative Results & Data Vital Signs (Past 12 Hours) Vital Signs Temp Pulse Pulse Resp BP Pulse Ox 01/05/19 07:23 36.6 C 77 17 123/64 90 01/05/19 04:40 36.5 C 82 19 155/67 H 92 01/04/19 23:22 64 18 92 01/04/19 23:14 36.4 C L 79 18 116/82 93 Laboratory Results 01/05/19 01/05/19 01/05/19 Range/Units 07:21 05:40 05:40 WBC (4.8-10.8) K/uL RBC (4.2-5.4) M/uL Hgb (12.0-16.0) g/dL Hct (37-47) % MCV (80-100) fL MCH (25-34) pg MCHC (32-36) g/dL RDW Std Deviation (36.4-46.3) fL RDW Coeff of Nataly (11.5-14.5) % Plt Count (130-400) K/uL MPV (7.4-10.4) fL PT 12.2 H (9.0-12.0) Seconds INR 1.2 H (0.9-1.1) APTT 58.7 H* (21.0-31.0) Seconds PTT Ratio 2.2 Creatinine 0.77 (0.6-1.2) mg/dl Est Cr Clr Drug Dosing 58.6 ml/min Est GFR ( Amer) 85.7 Est GFR (Non-Af Amer) 74.0 POC Glucose 119 H (70-99) Total Bilirubin 0.6 (0.2-1) mg/dl Direct Bilirubin 0.3 H (0-0.2) mg/dl AST 21 (15-37) U/L ALT 30 (12-78) U/L Alkaline Phosphatase 173 H (45-117) U/L Total Protein 6.2 L (6.4-8.2) gm/dl Albumin 2.2 L (3.4-5.0) gm/dl 01/05/19 01/04/19 01/04/19 Range/Units 05:40 20:12 16:15 WBC 9.06 (4.8-10.8) K/uL RBC 3.20 L (4.2-5.4) M/uL Hgb 9.3 L (12.0-16.0) g/dL Hct 30.8 L (37-47) % MCV 96.3 (80-100) fL MCH 29.1 (25-34) pg MCHC 30.2 L (32-36) g/dL RDW Std Deviation 49.9 H (36.4-46.3) fL RDW Coeff of Nataly 14.2 (11.5-14.5) % Plt Count 193 (130-400) K/uL MPV 9.5 (7.4-10.4) fL PT (9.0-12.0) Seconds INR (0.9-1.1) APTT (21.0-31.0) Seconds PTT Ratio Creatinine (0.6-1.2) mg/dl Est Cr Clr Drug Dosing ml/min Est GFR ( Amer) Est GFR (Non-Af Amer) POC Glucose 111 H 202 H (70-99) Total Bilirubin (0.2-1) mg/dl Direct Bilirubin (0-0.2) mg/dl AST (15-37) U/L ALT (12-78) U/L Alkaline Phosphatase (45-117) U/L Total Protein (6.4-8.2) gm/dl Albumin (3.4-5.0) gm/dl 01/04/19 01/04/19 Range/Units 11:02 10:28 WBC (4.8-10.8) K/uL RBC (4.2-5.4) M/uL Hgb (12.0-16.0) g/dL Hct (37-47) % MCV (80-100) fL MCH (25-34) pg MCHC (32-36) g/dL RDW Std Deviation (36.4-46.3) fL RDW Coeff of Nataly (11.5-14.5) % Plt Count (130-400) K/uL MPV (7.4-10.4) fL PT 11.4 (9.0-12.0) Seconds INR 1.1 (0.9-1.1) APTT (21.0-31.0) Seconds PTT Ratio Creatinine (0.6-1.2) mg/dl Est Cr Clr Drug Dosing ml/min Est GFR ( Amer) Est GFR (Non-Af Amer) POC Glucose 130 H (70-99) Total Bilirubin (0.2-1) mg/dl Direct Bilirubin (0-0.2) mg/dl AST (15-37) U/L ALT (12-78) U/L Alkaline Phosphatase (45-117) U/L Total Protein (6.4-8.2) gm/dl Albumin (3.4-5.0) gm/dl Medications Administered Current Inpatient Medications Albuterol (Ventolin 0.5% 2.5mg/0.5ml) 2.5 mg NEB Q2H PRN PRN Reason: SOB/Wheeze Stop: 01/26/19 17:43 Albuterol (Duoneb) 3 ml NEB Q2D@1000,1400 [facility] Stop: 01/28/19 10:44 Last Admin: 01/04/19 15:15 Dose: 3 ml Documented by: Amikacin Sulfate (Amikin) 250 mg INH Q48H [facility] Stop: 01/28/19 11:29 Last Admin: 01/04/19 15:06 Dose: 250 mg Documented by: Azithromycin (Zithromax) 500 mg PO Q24H [facility] Stop: 01/08/19 15:59 Last Admin: 01/04/19 15:28 Dose: 500 mg Documented by: Dextrose (Dextrose 50%) 25 - 50 ml IV UD PRN; Protocol PRN Reason: Hypoglycemia Protocol Stop: 01/27/19 01:59 Ethambutol HCl (Myambutol) 800 mg PO HS [facility] Stop: 01/26/19 20:59 Last Admin: 01/04/19 21:21 Dose: 800 mg Documented by: Ethambutol HCl (Myambutol) 200 mg PO [facility] Stop: 01/26/19 20:59 Last Admin: 01/04/19 21:25 Dose: 200 mg Documented by: Glucagon (Glucagen) 1 mg IM UD PRN; Protocol PRN Reason: Hypoglycemia Protocol Stop: 01/27/19 01:59 Glucose (Glucose 40%) 15 - 30 gm PO UD PRN; Protocol PRN Reason: Hypoglycemia Protocol Stop: 01/27/19 01:59 Glucose (Dex4 Glucose) 4 - 8 tabs PO UD PRN; Protocol PRN Reason: Hypoglycemia Protocol Stop: 01/27/19 01:59 Cefepime HCl 2,000 mg/ Syringe 20 mls @ 5 mls/min IV Q12H [facility]; Protocol Stop: 01/08/19 21:59 Last Admin: 01/05/19 09:41 Dose: 5 mls/min Documented by: Heparin Sodium/Dextrose (Heparin Sodium/Dextrose) 25,000 units in 500 mls @ 25 mls/hr IV .Q20H [facility]; Protocol Stop: 01/29/19 09:14 Last Admin: 01/05/19 09:07 Dose: 1,250 units/hr, 25 mls/hr Documented by: Insulin Aspart (Novolog Flexpen) 0 units SC DAILY@1630,2100 [facility] Stop: 02/01/19 16:29 Last Admin: 01/04/19 21:20 Dose: Not Given Documented by: Insulin Aspart (Novolog Flexpen) 0 units SC DAILY@0730,1130 [facility] Stop: 01/30/19 11:29 Last Admin: 01/05/19 07:59 Dose: Not Given Documented by: Insulin Human NPH (Novolin N Nph) 12 units SC DAILY [facility]; Protocol Stop: 01/31/19 08:59 Last Admin: 01/05/19 08:00 Dose: 12 units Documented by: Lansoprazole (Prevacid) 30 mg NG QAM [facility]; Protocol Stop: 01/27/19 13:59 Last Admin: 01/05/19 08:02 Dose: 30 mg Documented by: Magnesium Oxide (Mag-Ox) 400 mg PO [facility] Stop: 01/27/19 20:59 Last Admin: 01/04/19 21:23 Dose: 400 mg Documented by: Metoprolol Tartrate (Lopressor) 50 mg PO BID [facility] Stop: 02/01/19 20:59 Last Admin: 01/05/19 08:00 Dose: 50 mg Documented by: Miscellaneous (Carbohydrates For Hypoglycemia) 15 - 30 gm PO PRN PRN PRN Reason: Hypoglycemia Treatment Stop: 01/27/19 01:59 Last Admin: 12/31/18 20:40 Dose: 15 gm Documented by: Miscellaneous Information (Cefepime Consult Active) 1 ea N/A UD PRN PRN Reason: Consult Stop: 01/26/19 16:02 Miscellaneous Information (Consult Glycemic Management Pharmacy) 1 ea N/A UD PRN PRN Reason: Consult Stop: 01/27/19 01:59 Miscellaneous Information (Low Intensity Warfarin Nomogra) 1 ea N/A DAILY@1400 [facility]; Protocol Stop: 02/02/19 13:59 Last Admin: 01/04/19 14:14 Dose: 1 ea Documented by: Prednisone (Prednisone) 20 mg NG DAILY@0900 [facility]; Taper Stop: 01/09/19 08:59 Last Admin: 01/05/19 08:01 Dose: 20 mg Documented by: Prednisone (Prednisone) 10 mg NG DAILY [facility] Stop: 02/08/19 08:59 Rifampin (Rifampin) 600 mg PO HS [facility] Stop: 01/08/19 20:59 Last Admin: 01/04/19 21:24 Dose: 600 mg Documented by: PG Care Time/CCT Total # of Minutes Spent Total Time Spent with Patient: Total time spent is greater than 50% in coordination of care (as documented) at patient's floor/unit and/or counseling patient: Resident Activity Tracking Resident Involvement: Resident Care Provided Care Provided: Adult Hospital Medicine
[2019-01-05] MEDS: INSULIN ASPART 100 UNITS/ML 3 ML PEN SC SCH ×4 (07:59→20:25)
[2019-01-05] MEDS: METOPROLOL TARTRATE 25 MG TAB PO SCH ×2 (08:00→20:19)
[2019-01-05] MEDS: INSULIN HUMAN NPH SC SCH (08:00)
[2019-01-05] MEDS: predniSONE 10 MG TABLET NG SCH (08:01)
[2019-01-05] MEDS: LANSOPRAZOLE 30 MG SOLTAB NG SCH (08:02)
[2019-01-05] MEDS: HEPARIN SODIUM/DEXTROSE 25,000 UNITS/500 ML BAG IV SCH (09:07)
[2019-01-05] MEDS: CEFEPIME 2,000 MG in SYRINGE 7.5 ML IV SCH ×2 (09:41→21:20)
[2019-01-05] MEDS ORDERED: Nursing to Pharmacy Communication ONE (12:54)
--- NOTE | 2019-01-05 14:54 | Pharmacy Report ---
Pharmacy Glycemic Short Note 2 - Date of Service January 05, 2019 - Glycemic Short BSG Results (Last 24 hours): 01/04/19 01/04/19 01/05/19 16:15 20:12 07:21 POC Glucose 202 H 111 H 119 H 01/05/19 11:33 POC Glucose 199 H OUTPATIENT ANTIDIABETIC REGIMEN: * Metformin 500mg PO BID * A1c = 7.4% 12/28/18 ASSESSMENT: 01/05 * Patient has had good glycemic control over the last 48 hours, requiring ~26-27 units of insulin per day * Prednisone tapering to 10 mg tomorrow morning, patient did have elevated bsg at lunch today therefore will keep NPH tomorrow but decrease to 6 units * Continue current carb ratio/correction factor 01/03 * Patient received 34 units of insulin yesterday, 18 of which were basal NPH with prednisone * Patient's BSGs were acceptable yesterday ranging from 107-142 yesterday. * Prednisone tapered to 20 mg this morning, adjust NPH dose to 12 units * Carb ratio was loosened with dinner and HS checks due to trend for lower BSGs in the evening- will continue this tonight 01/01 * Patient received total of 32 units of insulin yesterday, 13 of which were basal * Hypoglycemic event yesterday PM, fasting this morning 98, patient was switched to 18 units of NPH to coincide with prednisone dose and will hopefully avoid steroid wearing off/hypoglycemia in the morning * Lunchtime BSG today 131, will continue current CF/CR today 12/31 * Patient received total of 34 units of insulin yesterday, of which 15 were basal insulin * Fasting BSG this AM 92 mg/dL - will scale back on Lantus for today, will wait to ensure BSGs trending up first * Lunchtime BSG trending up to 200s, continue same CF/CR but added Lantus back on - did small reduction from 15 units to 13 units as BSGs were in 70s overnight 12/30 * Patient transitioned off drip yesterday, received 10 units of Lantus plus drip and 16 units of SSI * Fasting BSG this AM 102 mg/dL - continues on prednisone 40 mg daily then tapering * Would have expected higher fasting with steroids on board, waited until lunch to reassess Lantus needs. BSG at lunch 169 mg/dL - diet continued * Will order Lantus 15 units x 1 for now also tighten CR at dinner. Will keep at Q4 hr checks since steroids on board, may d/c tomorrow if BSGs stable 12/29 * BSGs well controlled with insulin drip. Drip running at 0.4-0.6unit/hr over last 6+ hrs * Pt extubated at this time, continuous tube feeds off, prednisone taper continues, ps aeruginosa in BAL cx * Will transition to SQ regimen at this time. * Basal dose will be based upon latest drip rates. Bolus dosing will be based upon wt and mod-severe stress level given current severity of illness and steroid provision 12/28 * Type 2 diabetic admitted for respiratory failure, hypercapneic resp failure w/ resp acidosis leading to intubation/mech ventilation * IV steroid therapy and abx therapy initiated for CAP with risk factors for resistant organism + treatment for possible RAUL pulm infxn * IV insulin drip initiated per ICU protocol for BSG > 220 * Insulin drip continues at this time at 1.85 units/hr, last 3 BSGs in goal range at this rate and monitoring may decrease to Q 2 hrs in near future * Pt failed SBT today and will remain intubated - reassess readiness for extubation tomorrow AM * Steroid regimen changed from Solu-medrol 30mg TID to Prednisone taper * Tube feedings planned for later today as pt not ready for extubation PLAN FOR INPATIENT GLYCEMIC CONTROL: * NPH 6 units qAM * Novolog SQ ACHS * Goal range 110-140 * CF 30 mg/dL/unit * CR 1 unit per 10 gm CHO consumed at breakfast/lunch; 1 unit per 12 gm CHO at dinner/hs 8
[2019-01-05] MEDS: AZITHROMYCIN 250 MG TAB PO SCH (15:46)
[2019-01-05] MEDS ORDERED: WARFARIN SOD 6 MG TAB PO ONE (16:00)
[2019-01-05] MEDS: ETHAMBUTOL HCL 400 MG TAB PO SCH (20:20)
[2019-01-05] MEDS: ETHAMBUTOL HCL 100 MG PO SCH (20:20)
[2019-01-05] MEDS: MAGNESIUM OXIDE 400 MG TAB PO SCH (20:20)
[2019-01-05] MEDS: rifAMPin 300 MG CAPSULE PO SCH (20:21)
[2019-01-06] MEDS: HEPARIN SODIUM/DEXTROSE 25,000 UNITS/500 ML BAG IV SCH (05:10)
[2019-01-06 07:30] LABS: Hematocrit (blood only) 32.5 % (37-47); Hemoglobin 9.7 g/dL (12.0-16.0); Mean Corpuscular Hemoglobin 28.7 pg (25-34); Mean Corpuscular Hgb Conc 29.8 g/dL (32-36); Mean Corpuscular Volume 96.2 fL (80-100); Mean Platelet Volume 9.8 fL (7.4-10.4); Platelet Count 207 K/uL (130-400); RDW Coefficient of Variation 14.4 % (11.5-14.5); RDW Standard Deviation 50.2 fL (36.4-46.3); Red Blood Count 3.38 M/uL (4.2-5.4); White Blood Count 9.69 K/uL (4.8-10.8)
[2019-01-06 07:53] LABS: INR 1.9 (0.9-1.1); Partial Thromboplastin Ratio 2.9; Prothrombin Time 18.8 Seconds (9.0-12.0)
[2019-01-06 07:58] LABS: Partial Thromboplastin Time 78.8 Seconds (21.0-31.0)
[2019-01-06 08:08] LABS: Creatinine Clr Calc Pharmacy 68.3 ml/min; Est GFR (African American) 98.1; Est GFR (Non-African American) 84.6
[2019-01-06] MEDS: INSULIN ASPART 100 UNITS/ML 3 ML PEN SC SCH ×5 (08:46→21:14)
[2019-01-06] MEDS: METOPROLOL TARTRATE 25 MG TAB PO SCH ×2 (08:46→20:35)
[2019-01-06] MEDS: LANSOPRAZOLE 30 MG SOLTAB NG SCH (08:47)
[2019-01-06] MEDS: predniSONE 10 MG TABLET NG SCH (08:48)
[2019-01-06] MEDS: INSULIN HUMAN NPH SC SCH (08:49)
[2019-01-06] MEDS: ALBUT/IPRATROP 3MG/0.5MG NEB 3 ML VIAL NEB SCH ×2 (09:58→13:12)
[2019-01-06] MEDS: CEFEPIME 2,000 MG in SYRINGE 7.5 ML IV SCH (10:55)
--- NOTE | 2019-01-06 11:15 | Family Medicine Progress Note ---
Date of Service January 06, 2019 Assessment & Plan (1) COPD (chronic obstructive pulmonary disease): Elderly female with past medical history of severe COPD on 4L at home, HTN, T2DM p/w acute hypoxic hypercapnic respiratory failure requiring ICU stay with intubation. COPD exacerbation secondary to pneumonia. Patient status post bronchoscopy, cultures show pansensitive Pseudomonas. -Back to baseline oxygen requirements -Pred taper initiated received prednisone 10 mg plus home daily 10 mg -On 10 mg daily at home -Albuterol and DuoNebs as needed. #Pneumonia Previous ICU stay during which patient had a bronchoscopy. Culture from b ronchoscopy demonstrated pansensitive Pseudomonas. Patient has been on cefepime, will require 10 days total last day will be January 06. -Cefepime day 10 of 10 -d/c cefepime today -Infectious disease consulted following recommendations -Continue amikacin, ethambutol, rifampin for RAUL suspect on CT findings. DC pending results of MAC culture -Cefepime for Pseudomonas in sputum culture -Monitor renal function while on amikacin Acute hypoxic hypercapnic respiratory failure -Extubated on 12/30 -Pt continuing to retain CO2 overnight as she does not tolerate use of CPAP/BIPAP. -Using her CPAP more consistently Paroxysmal A. fib with RVR--suspected based on tele monitoring No EKG evidence of afib. Pt has had episodes of rapid ventricular rate; EKG repeated on 12/31 and revealed sinus rhythm with PACs. Considering high ventricular rates likely would benefit from anticoagulation. Due to current antibiotics, unable to use DOACs. Converted CCBs to lopressor BID and heparin bridge to warfarin. Anticoagulation We had a discussion with pharmacy this morning regarding patient's anticoagulation. Given that she is on rifampin to ask her contraindicated, warfarin is not an ideal choice. Until her antibiotics were de-escalated really our options consist of high-dose Lovenox or heparin drip. Given that she has IV access, and will be remaining inpatient for the time being we will continue heparin drip -Continue warfarin low dose normogram -PT/INR daily -INR:1.9 borderline therapeutic -DC heparin drip Hypertension Heart rates have been better controlled -Continue lopressor 50 BID History of fatty liver disease -Trend LFTs and follow as outpatient Diabetes type 2 -Last A1c 7.27 August 2018 -Glycemic consult; ISS FENa: Diabetes type 2 Code Status: DNR/DNI DVT PPX: warfarin low dose normogram PT/OT:Ordered Dispo: Downgrade to [facility], case management looking into SNF Carlo Peña MD PGY 2, FCM This chart was completed utilizing [employer] voice recognition software. Grammatical errors, random word insertions, pronoun errors, and in complete sentences are an occasional consequence of the system. Any questions or concerns about the content, text, or information contained within the body of this dictation should be addressed directly to the physician for clarification. Supervising Physician Co-Signing Physician Notes Patient seen and examined with Dr. Peña. I agree with their exam findings, review of systems, assessment and plan. I have personally reviewed the lab work and imaging from today. patient breathing well, no complaints able to stop heparin drip today which she is happy about c/o some muscle spasms, checked BMP, electrolytes stable, Mg stable updated at the bedside Exam: elderly female, no acute distress, lungs diminished, no wheezing, normal resp effort heart regular, S1 S2, no murmurs, abdomen soft, NT, ND - Acute on chronic hypoxic respiratory failure improved, was intubated earlier in admission, now stable on nasal canula due to pneumonia, Pseudomonas on sputum culture, completed Cefepime for 10 days total, last day 01/06 normal respiratory effort all week, likely fully recovered from acute component - Acute on chronic hypercapnic respiratory failure encouraged patient to wear NIPPV at night to help control CO2 more compliant with mask the past five nights, showing improvement - Pneumonia: continue Cefepime 10 days, no fever, WBC normal at 10k, finish today - Possible RAUL infection: awaiting final AFB culture, continue treatment for time being and will likely continue on discharge - Possible atrial fibrillation, paroxysmal: EKG have shown PAC and MAT had reported atrial fibrillation with rates in 150's earlier in stay continue rate control with metoprolol increased metoprolol to 50mg BID on 01/02 with good results anticoagulation with heparin drip, started on Coumadin, INR is 1.9, will stop heparin drip since she was in sinus rhythm plan for SNF rehab early this week Subjective Patient sitting up in her chair this morning in no acute distress. The night resident was paged as nursing had noticed some vaginal spotting. Upon further questioning the patient reports she has a long-standing history of this. Furthermore it is difficult to discern whether or not this is reddening or darkening of her secretions secondary to being on rifampin versus actual vaginal spotting. As is a chronic issue and is been going on for an extended period of time will defer further work-up to outpatient and recommend follow-up with gynecology. Otherwise patient is tolerating her diet, eating, sleeping, voiding on her own. She is a bit more somnolescent per her , will continue to monitor. All questions answered no acute concerns. Physical Exam Physical Exam: General: Elderly female sitting upright in a chair in no acute distress HEENT: Normocephalic atraumatic Neck: Normal visual inspection Cardiac: Regular rate and rhythm I did not appreciate significant murmurs rubs or gallops, normal S1, normal S2, neg pedal edema, no calf tenderness Respiratory: Scattered rhonchi and bibasilar lung baez with symmetrical chest rise, nonlabored breathing, negative egophony. Overall respiratory exam continues to improve GI: Bowel sounds present, soft, nontender, nondistended MSK: Moves all extremities Neuro: AAO x2 Psych: Calm, cooperative Results & Data Vital Signs (Past 12 Hours) Vital Signs Temp Pulse Resp BP Pulse Ox 01/06/19 09:58 86 18 92 01/06/19 07:47 36.4 C L 61 20 159/69 H 98 01/05/19 23:22 36.7 C 88 20 147/76 H 95 PG Care Time/CCT Total # of Minutes Spent Total Time Spent with Patient: Total time spent is greater than 50% in coordination of care (as documented) at patient's floor/unit and/or counseling patient: Resident Activity Tracking Resident Involvement: Resident Care Provided Care Provided: Adult Hospital Medicine
[2019-01-06] MEDS: AMIKACIN 250 MG/ML INH SCH (11:16)
[2019-01-06 12:52] LABS: BUN Creatinine Ratio 20.9 (10-20); Calcium 8.9 mg/dl (8.5-10.1); Creatinine Clr Calc Pharmacy 68.3 ml/min; Est GFR (African American) 98.1; Est GFR (Non-African American) 84.6; Magnesium 2.1 mg/dl (1.8-2.4); Potassium 4.1 mmol/L (3.5-5.1)
[2019-01-06 16:31] LABS: Base Excess ABG 17.3 mEq/L (-9-1.8); HCO3 ABG 44 mmol/L (19-24); Oxygen Saturation ABG 91.4 % (90-95); PCO2 ABG 67 mmHg (35-46); PO2 ABG 66 mm/Hg (80-95); pH ABG 7.44 (7.35-7.45)
[2019-01-06 16:32] LABS: Allen Test Pos (Pos)
--- NOTE | 2019-01-06 17:20 | XRay Report ---
XR chest 1V portable CLINICAL HISTORY: Hypoxia dyspnea COMPARISON STUDY: 12/29/2018 FINDINGS: Interval extubation. Diffuse parenchymal infiltrative/fibrotic changes bilaterally. Mild improvement in aeration left base. IMPRESSION: 1. Interval extubation. 2. Moderate improvement in aeration left base. 3. Diffuse fibrotic/inflammatory change considered unaltered The above report was generated using voice recognition software. It may contain grammatical, syntax or spelling errors. Electronically signed by: Armani Ashraf M.D. 01/06/2019 5:19 PM
[2019-01-06] MEDS: WARFARIN SOD 4 MG TAB PO SCH (17:26)
[2019-01-06] MEDS: AZITHROMYCIN 250 MG TAB PO SCH (17:27)
[2019-01-06] MEDS: ETHAMBUTOL HCL 400 MG TAB PO SCH (20:34)
[2019-01-06] MEDS: rifAMPin 300 MG CAPSULE PO SCH (20:35)
[2019-01-06] MEDS: ETHAMBUTOL HCL 100 MG PO SCH (20:35)
[2019-01-06] MEDS: MAGNESIUM OXIDE 400 MG TAB PO SCH (20:35)
[2019-01-07 07:25] LABS: INR 2.6 (0.9-1.1); Partial Thromboplastin Ratio 1.3; Partial Thromboplastin Time 35.1 Seconds (21.0-31.0); Prothrombin Time 25.1 Seconds (9.0-12.0)
[2019-01-07 07:41] LABS: Basophils # (auto) 0.02 K/uL (0-0.2); Basophils % (auto) 0.2 %; Eosinophils # (auto) 0.22 K/uL (0-0.5); Eosinophils % (auto) 2.3 %; Hematocrit (blood only) 31.9 % (37-47); Hemoglobin 9.2 g/dL (12.0-16.0); Immature Granulocytes # (auto) 0.09 K/uL (0.00-0.02); Lymphocytes # (auto) 1.62 K/uL (1.2-3.4); Lymphocytes % (auto) 17.2 %; Mean Corpuscular Hemoglobin 28.5 pg (25-34); Mean Corpuscular Hgb Conc 28.8 g/dL (32-36); Mean Corpuscular Volume 98.8 fL (80-100); Mean Platelet Volume 9.9 fL (7.4-10.4); Monocytes # (auto) 1.43 K/uL (0.11-0.59); Monocytes % (auto) 15.2 %; Neutrophils # (auto) 6.03 K/uL (1.4-6.5); Neutrophils % (auto) 64.1 %; Platelet Count 194 K/uL (130-400); RDW Coefficient of Variation 14.4 % (11.5-14.5); RDW Standard Deviation 51.4 fL (36.4-46.3); Red Blood Count 3.23 M/uL (4.2-5.4); White Blood Count 9.41 K/uL (4.8-10.8)
[2019-01-07 07:53] LABS: BUN Creatinine Ratio 22.3 (10-20); Calcium 8.8 mg/dl (8.5-10.1); Creatinine Clr Calc Pharmacy 68.3 ml/min; Est GFR (African American) 98.1; Est GFR (Non-African American) 84.6; Potassium 3.9 mmol/L (3.5-5.1)
[2019-01-07] MEDS: INSULIN ASPART 100 UNITS/ML 3 ML PEN SC SCH ×4 (10:21→21:00)
[2019-01-07] MEDS: METOPROLOL TARTRATE 25 MG TAB PO SCH ×2 (10:21→20:58)
[2019-01-07] MEDS: LANSOPRAZOLE 30 MG SOLTAB NG SCH (10:21)
[2019-01-07] MEDS: predniSONE 10 MG TABLET NG SCH (10:21)
[2019-01-07] MEDS: INSULIN HUMAN NPH SC SCH (10:22)
--- NOTE | 2019-01-07 10:42 | Family Medicine Progress Note ---
Date of Service January 07, 2019 Assessment & Plan (1) COPD (chronic obstructive pulmonary disease): Elderly female with past medical history of severe COPD on 4L at home, HTN, T2DM p/w acute hypoxic hypercapnic respiratory failure requiring ICU stay with intubation. COPD exacerbation -Secondary to pneumonia. Patient status post bronchoscopy, cultures show pansensitive Pseudomonas. -Back to baseline oxygen requirements. Recommend she continue to use CPAP at n ight with elevating CO2 levels -Pred taper initiated, back to daily 10mg dose (home dose) -Albuterol and DuoNebs as needed. Pneumonia -Bronch in ICU with cultures showing pansensitive Pseudomonas. -Cefepime DCd 01/06 -Infectious disease consulted following recommendations -Continue amikacin, ethambutol, rifampin for RAUL suspect on CT findings. DC pending results of MAC culture -Cefepime completed for Pseudomonas in sputum culture -Monitor renal function while on amikacin -Pt will need outpatient follow up with Dr. Buck of ID Acute hypoxic hypercapnic respiratory failure -Extubated on 12/30 -Pt continuing to retain CO2 overnight as she does not tolerate use of CPAP/BIPAP. -Using her CPAP more consistently, reiterated need for CPAP use. Pt reports she "just doesn't like it" Paroxysmal A. fib with RVR--suspected based on tele monitoring No EKG evidence of afib. Pt has had episodes of rapid ventricular rate; EKG repeated on 12/31 and revealed sinus rhythm with PACs. Considering high ventricular rates likely would benefit from anticoagulation. Due to current antibiotics, unable to use DOACs. Converted CCBs to lopressor BID and heparin bridge to warfarin. Anticoagulation -Discussion with pharmacy regarding patient's anticoagulation (DOACs/warfarin not great options considering rifampin use). -Continue warfarin low dose normogram -PT/INR daily Hypertension Heart rates have been better controlled -Continue lopressor 50 BID History of fatty liver disease -Trend LFTs and follow as outpatient Diabetes type 2 -Last A1c 7.27 August 2018 -Glycemic consult; ISS FENa: Diabetes type 2 Code Status: DNR/DNI DVT PPX: warfarin low dose normogram PT/OT:Ordered; no notes as of yet; will need for rehab dispo Dispo: MedSurg, case management placing referral for rehab on 01/08 Supervising Physician Co-Signing Physician Notes Patient seen and examined with Dr. Daniel. I agree with their exam findings, review of systems, assessment and plan. I have personally reviewed the lab work and imaging from today. patient breathing comfortably this morning, says that she is tired reviewed her ABG yesterday, showed that her elevated CO2 is all chronic, she is compensated at pH normal at 7.4 it did show hypoxia CXR reviewed by myself, shows increased aeration in left base, no edema unclear why she would have been more hypoxic, certainly she is deconditioned and fatigued from prolonged hospitalization reviewed her weights, weight actually went down so doubt volume retention Exam: elderly female, no acute distress, lungs diminished, no wheezing, normal resp effort heart regular, S1 S2, no murmurs, abdomen soft, NT, ND - Acute on chronic hypoxic respiratory failure was intubated earlier in admission, she was stable, now requiring some intermittent BIPAP ABG on 01/06 with pH 7.4, O2 66, CXR was improved compared to prior CXR unclear why she would be requiring intermittent BIPAP, most logical expla nation is deconditioning, fatige initial failure due to pneumonia, Pseudomonas on sputum culture, completed Cefepime for 10 days total, last day 01/06 - Acute on chronic hypercapnic respiratory failure encouraged patient to wear NIPPV at night to help control CO2 more compliant with mask the past five nights, showing improvement pH on 01/06 with CO2 60's but pH 7.44 so metabolic compensation - Pneumonia: completed Cefepime 10 days, no fever, WBC normal - Possible RAUL infection: awaiting final AFB culture, continue treatment for time being and will likely continue on discharge would recommend continuing and follow up with Dr. Buck in a few weeks - Possible atrial fibrillation, paroxysmal: EKG have shown PAC and MAT had reported atrial fibrillation with rates in 150's earlier in stay continue rate control with metoprolol increased metoprolol to 50mg BID on 01/02 with good results continue Coumadin, INR is 2.6 plan for SNF rehab early this week Subjective Patient reports she feels overall well this morning. She states she has certainly improved in the past several days. She states that she does not like to wear her CPAP mask overnight. Acutely decompensated from a respiratory point of view yesterday afternoon when ambulating to the bathroom. Oxygen was not connected, required BiPAP. ABG WNL. Review of Systems Review of Systems: All systems reviewed & are unremarkable except as noted in HPI & below Constitutional: + fatigue and + malaise; no fever and no chills Respiratory: + cough and + dyspnea on exertion; no wheezing Cardiovascular: no chest pain and no radiating jaw, neck or arm pain Gastrointestinal: no abdominal pain Genitourinary: no dysuria Integumentary: no rash Physical Exam Constitutional: WD/WN, vitals as above comfortable; no acute distress Eyes: PERRL, conjunctivae normal, anicteric sclerae ENMT: external ear and nose normal, oropharynx normal Neck: trachea midline, no thyromegaly neck nontender Respiratory: no respiratory distress and does not use accessory muscles Auscultation: + crackles (scant) and + rhonchi (scant) Cardiovascular: RRR, no murmur, no edema Rate/Rhythm: regular rate and regular rhythm Heart Sounds: normal S1 and normal S2; no gallop Vessels: normal peripheral pulses; no JVD Gastrointestinal (Abdomen): normal bowel sounds, soft, nontender, no hepatosplenomegaly Musculoskeletal: no cyanosis or clubbing, extremities motor strength 5/5 Spine: thoracic spine normal to inspection and lumbar spine normal to inspection Skin: no rashes, warm and dry normal turgor; no lesions Neurologic: patellar DTR's 2+ bilat, sensation intact no focal motor deficits Psychiatric: A+Ox3, euthymic affect Orientation: cooperative Lymphatic: no cervical or axillary lymphadenopathy no inguinal lymphadenopathy Results & Data Vital Signs (Past 12 Hours) Vital Signs Temp Pulse Resp BP Pulse Ox 01/07/19 00:48 98.2 F 72 20 128/72 91 Laboratory Results 01/07/19 01/07/19 01/07/19 Range/Units 10:19 07:40 06:44 WBC (4.8-10.8) K/uL RBC (4.2-5.4) M/uL Hgb (12.0-16.0) g/dL Hct (37-47) % MCV (80-100) fL MCH (25-34) pg MCHC (32-36) g/dL RDW Std Deviation (36.4-46.3) fL RDW Coeff of Nataly (11.5-14.5) % Plt Count (130-400) K/uL MPV (7.4-10.4) fL Immature Gran % (Auto) % Neut % (Auto) % Lymph % (Auto) % Sumner % (Auto) % Eos % (Auto) % Baso % (Auto) % Immature Gran # (Auto) (0.00-0.02) K/uL Neut # (Auto) (1.4-6.5) K/uL Lymph # (Auto) (1.2-3.4) K/uL Sumner # (Auto) (0.11-0.59) K/uL Eos # (Auto) (0-0.5) K/uL Baso # (Auto) (0-0.2) K/uL PT (9.0-12.0) Seconds INR (0.9-1.1) APTT (21.0-31.0) Seconds PTT Ratio ABG pH (7.35-7.45) ABG pCO2 (35-46) mmHg ABG pO2 (80-95) mm/Hg ABG HCO3 (19-24) mmol/L ABG O2 Saturation (90-95) % ABG Base Excess (-9-1.8) mEq/L Marques Test (Pos) Barometric Pressure mm/Hg Oxygen Given Sodium 141 (136-145) mmol/L Potassium 3.9 (3.5-5.1) mmol/L Chloride 98 (98-107) mmol/L Carbon Dioxide 41 H* (21-32) mmol/L Anion Gap 2.0 L (3-11) BUN 15 (7-18) mg/dl Creatinine 0.66 (0.6-1.2) mg/dl Est Cr Clr Drug Dosing 68.3 ml/min Est GFR ( Amer) 98.1 Est GFR (Non-Af Amer) 84.6 BUN/Creatinine Ratio 22.3 H (10-20) Glucose 108 H (70-99) mg/dl POC Glucose 187 H 117 H (70-99) Calcium 8.8 (8.5-10.1) mg/dl Magnesium (1.8-2.4) mg/dl 01/07/19 01/07/19 01/06/19 Range/Units 06:44 06:44 19:56 WBC 9.41 (4.8-10.8) K/uL RBC 3.23 L (4.2-5.4) M/uL Hgb 9.2 L (12.0-16.0) g/dL Hct 31.9 L (37-47) % MCV 98.8 (80-100) fL MCH 28.5 (25-34) pg MCHC 28.8 L (32-36) g/dL RDW Std Deviation 51.4 H (36.4-46.3) fL RDW Coeff of Natlay 14.4 (11.5-14.5) % Plt Count 194 (130-400) K/uL MPV 9.9 (7.4-10.4) fL Immature Gran % (Auto) 1.0 % Neut % (Auto) 64.1 % Lymph % (Auto) 17.2 % Sumner % (Auto) 15.2 % Eos % (Auto) 2.3 % Baso % (Auto) 0.2 % Immature Gran # (Auto) 0.09 H (0.00-0.02) K/uL Neut # (Auto) 6.03 (1.4-6.5) K/uL Lymph # (Auto) 1.62 (1.2-3.4) K/uL Sumner # (Auto) 1.43 H (0.11-0.59) K/uL Eos # (Auto) 0.22 (0-0.5) K/uL Baso # (Auto) 0.02 (0-0.2) K/uL PT 25.1 H (9.0-12.0) Seconds INR 2.6 H (0.9-1.1) APTT 35.1 H (21.0-31.0) Seconds PTT Ratio 1.3 ABG pH (7.35-7.45) ABG pCO2 (35-46) mmHg ABG pO2 (80-95) mm/Hg ABG HCO3 (19-24) mmol/L ABG O2 Saturation (90-95) % ABG Base Excess (-9-1.8) mEq/L Marques Test (Pos) Barometric Pressure mm/Hg Oxygen Given Sodium (136-145) mmol/L Potassium (3.5-5.1) mmol/L Chloride (98-107) mmol/L Carbon Dioxide (21-32) mmol/L Anion Gap (3-11) BUN (7-18) mg/dl Creatinine (0.6-1.2) mg/dl Est Cr Clr Drug Dosing ml/min Est GFR ( Amer) Est GFR (Non-Af Amer) BUN/Creatinine Ratio (10-20) Glucose (70-99) mg/dl POC Glucose 137 H (70-99) Calcium (8.5-10.1) mg/dl Magnesium (1.8-2.4) mg/dl 01/06/19 01/06/19 01/06/19 Range/Units 16:54 16:21 15:13 WBC (4.8-10.8) K/uL RBC (4.2-5.4) M/uL Hgb (12.0-16.0) g/dL Hct (37-47) % MCV (80-100) fL MCH (25-34) pg MCHC (32-36) g/dL RDW Std Deviation (36.4-46.3) fL RDW Coeff of Nataly (11.5-14.5) % Plt Count (130-400) K/uL MPV (7.4-10.4) fL Immature Gran % (Auto) % Neut % (Auto) % Lymph % (Auto) % Sumner % (Auto) % Eos % (Auto) % Baso % (Auto) % Immature Gran # (Auto) (0.00-0.02) K/uL Neut # (Auto) (1.4-6.5) K/uL Lymph # (Auto) (1.2-3.4) K/uL Sumner # (Auto) (0.11-0.59) K/uL Eos # (Auto) (0-0.5) K/uL Baso # (Auto) (0-0.2) K/uL PT (9.0-12.0) Seconds INR (0.9-1.1) APTT (21.0-31.0) Seconds PTT Ratio ABG pH 7.44 (7.35-7.45) ABG pCO2 67 H (35-46) mmHg ABG pO2 66 L (80-95) mm/Hg ABG HCO3 44 H (19-24) mmol/L ABG O2 Saturation 91.4 (90-95) % ABG Base Excess 17.3 H (-9-1.8) mEq/L Marques Test Pos (Pos) Barometric Pressure 731.2 mm/Hg Oxygen Given 10.5 L Sodium (136-145) mmol/L Potassium (3.5-5.1) mmol/L Chloride (98-107) mmol/L Carbon Dioxide (21-32) mmol/L Anion Gap (3-11) BUN (7-18) mg/dl Creatinine (0.6-1.2) mg/dl Est Cr Clr Drug Dosing ml/min Est GFR ( Amer) Est GFR (Non-Af Amer) BUN/Creatinine Ratio (10-20) Glucose (70-99) mg/dl POC Glucose 143 H 191 H (70-99) Calcium (8.5-10.1) mg/dl Magnesium (1.8-2.4) mg/dl 01/06/19 01/06/19 Range/Units 12:14 12:06 WBC (4.8-10.8) K/uL RBC (4.2-5.4) M/uL Hgb (12.0-16.0) g/dL Hct (37-47) % MCV (80-100) fL MCH (25-34) pg MCHC (32-36) g/dL RDW Std Deviation (36.4-46.3) fL RDW Coeff of Nataly (11.5-14.5) % Plt Count (130-400) K/uL MPV (7.4-10.4) fL Immature Gran % (Auto) % Neut % (Auto) % Lymph % (Auto) % Sumner % (Auto) % Eos % (Auto) % Baso % (Auto) % Immature Gran # (Auto) (0.00-0.02) K/uL Neut # (Auto) (1.4-6.5) K/uL Lymph # (Auto) (1.2-3.4) K/uL Sumner # (Auto) (0.11-0.59) K/uL Eos # (Auto) (0-0.5) K/uL Baso # (Auto) (0-0.2) K/uL PT (9.0-12.0) Seconds INR (0.9-1.1) APTT (21.0-31.0) Seconds PTT Ratio ABG pH (7.35-7.45) ABG pCO2 (35-46) mmHg ABG pO2 (80-95) mm/Hg ABG HCO3 (19-24) mmol/L ABG O2 Saturation (90-95) % ABG Base Excess (-9-1.8) mEq/L Marques Test (Pos) Barometric Pressure mm/Hg Oxygen Given Sodium 141 (136-145) mmol/L Potassium 4.1 (3.5-5.1) mmol/L Chloride 97 L (98-107) mmol/L Carbon Dioxide 42 H* (21-32) mmol/L Anion Gap 2.0 L (3-11) BUN 14 (7-18) mg/dl Creatinine 0.66 (0.6-1.2) mg/dl Est Cr Clr Drug Dosing 68.3 ml/min Est GFR ( Amer) 98.1 Est GFR (Non-Af Amer) 84.6 BUN/Creatinine Ratio 20.9 H (10-20) Glucose 136 H (70-99) mg/dl POC Glucose 136 H (70-99) Calcium 8.9 (8.5-10.1) mg/dl Magnesium 2.1 (1.8-2.4) mg/dl Medications Administered Current Inpatient Medications Albuterol (Ventolin 0.5% 2.5mg/0.5ml) 2.5 mg NEB Q2H PRN PRN Reason: SOB/Wheeze Stop: 01/26/19 17:43 Albuterol (Duoneb) 3 ml NEB Q2D@1000,1400 KEV Stop: 01/28/19 10:44 Last Admin: 01/06/19 13:12 Dose: 3 ml Documented by: Amikacin Sulfate (Amikin) 250 mg INH Q48H KEV Stop: 01/28/19 11:29 Last Admin: 01/06/19 11:16 Dose: 250 mg Documented by: Azithromycin (Zithromax) 500 mg PO Q24H KEV Stop: 01/08/19 15:59 Last Admin: 01/06/19 17:27 Dose: 500 mg Documented by: Dextrose (Dextrose 50%) 25 - 50 ml IV UD PRN; Protocol PRN Reason: Hypoglycemia Protocol Stop: 01/27/19 01:59 Ethambutol HCl (Myambutol) 800 mg PO HS KEV Stop: 01/26/19 20:59 Last Admin: 01/06/19 20:34 Dose: 800 mg Documented by: Ethambutol HCl (Myambutol) 200 mg PO HS KEV Stop: 01/26/19 20:59 Last Admin: 01/06/19 20:35 Dose: 200 mg Documented by: Glucagon (Glucagen) 1 mg IM UD PRN; Protocol PRN Reason: Hypoglycemia Protocol Stop: 01/27/19 01:59 Glucose (Glucose 40%) 15 - 30 gm PO UD PRN; Protocol PRN Reason: Hypoglycemia Protocol Stop: 01/27/19 01:59 Glucose (Dex4 Glucose) 4 - 8 tabs PO UD PRN; Protocol PRN Reason: Hypoglycemia Protocol Stop: 01/27/19 01:59 Insulin Aspart (Novolog Flexpen) 0 units SC ACHS KEV Stop: 02/05/19 11:59 Last Admin: 01/07/19 10:21 Dose: 2 units Documented by: Insulin Human NPH (Novolin N Nph) 6 units SC DAILY KEV; Protocol Stop: 01/31/19 08:59 Last Admin: 01/07/19 10:22 Dose: 6 units Documented by: Lansoprazole (Prevacid) 30 mg NG QAM KEV; Protocol Stop: 01/27/19 13:59 Last Admin: 01/07/19 10:21 Dose: 30 mg Documented by: Magnesium Oxide (Mag-Ox) 400 mg PO HS KEV Stop: 01/27/19 20:59 Last Admin: 01/06/19 20:35 Dose: 400 mg Documented by: Metoprolol Tartrate (Lopressor) 50 mg PO BID KEV Stop: 02/01/19 20:59 Last Admin: 01/07/19 10:21 Dose: 50 mg Documented by: Miscellaneous (Carbohydrates For Hypoglycemia) 15 - 30 gm PO PRN PRN PRN Reason: Hypoglycemia Treatment Stop: 01/27/19 01:59 Last Admin: 12/31/18 20:40 Dose: 15 gm Documented by: Miscellaneous Information (Consult Glycemic Management Pharmacy) 1 ea N/A UD PRN PRN Reason: Consult Stop: 01/27/19 01:59 Miscellaneous Information (Low Intensity Warfarin Nomogra) 1 ea N/A DAILY@1400 KEV; Protocol Stop: 02/02/19 13:59 Last Admin: 01/06/19 14:16 Dose: 1 ea Documented by: Prednisone (Prednisone) 10 mg NG DAILY@0900 KEV; Taper Stop: 01/09/19 08:59 Last Admin: 01/07/19 10:21 Dose: 10 mg Documented by: Prednisone (Prednisone) 10 mg NG DAILY REPLACED BY [facility] Stop: 02/08/19 08:59 Rifampin (Rifampin) 600 mg PO HS REPLACED BY [facility] Stop: 01/08/19 20:59 Last Admin: 01/06/19 20:35 Dose: 600 mg Documented by: Warfarin Sodium (Coumadin) 4 mg PO DAILY@1600 KEV Stop: 02/05/19 15:59 Last Admin: 01/06/19 17:26 Dose: 4 mg Documented by: PG Care Time/CCT Total # of Minutes Spent Total Time Spent with Patient: Total time spent is greater than 50% in coordination of care (as documented) at patient's floor/unit and/or counseling patient: Resident Activity Tracking Resident Involvement: Resident Care Provided Care Provided: Adult Hospital Medicine
[2019-01-07] MEDS: AZITHROMYCIN 250 MG TAB PO SCH (17:47)
[2019-01-07] MEDS: WARFARIN SOD 4 MG TAB PO SCH (17:47)
[2019-01-07] MEDS: rifAMPin 300 MG CAPSULE PO SCH (20:59)
[2019-01-07] MEDS: MAGNESIUM OXIDE 400 MG TAB PO SCH (20:59)
[2019-01-07] MEDS: ETHAMBUTOL HCL 100 MG PO SCH (20:59)
[2019-01-07] MEDS: ETHAMBUTOL HCL 400 MG TAB PO SCH (20:59)
[2019-01-08 06:07] LABS: Prothrombin Time 28.1 Seconds (9.0-12.0)
[2019-01-08 06:19] LABS: Creatinine Clr Calc Pharmacy 68.3 ml/min; Est GFR (African American) 98.1; Est GFR (Non-African American) 84.6
[2019-01-08] MEDS: LANSOPRAZOLE 30 MG SOLTAB NG SCH (08:43)
[2019-01-08] MEDS: predniSONE 10 MG TABLET NG SCH (08:43)
[2019-01-08] MEDS: INSULIN HUMAN NPH SC SCH (08:43)
[2019-01-08] MEDS: METOPROLOL TARTRATE 25 MG TAB PO SCH ×2 (08:43→20:47)
[2019-01-08] MEDS: INSULIN ASPART 100 UNITS/ML 3 ML PEN SC SCH ×4 (08:45→20:41)
[2019-01-08] MEDS: ALBUT/IPRATROP 3MG/0.5MG NEB 3 ML VIAL NEB SCH ×2 (10:08→13:24)
[2019-01-08] MEDS: AMIKACIN 250 MG/ML INH SCH (11:37)
--- NOTE | 2019-01-08 12:53 | Palliative Care Consultation ---
Date of Consultation January 08, 2019 Assessment & Plan (1) Goals of care, counseling/discussion: -78 year old female patient with PMH severe COPD with FEV1 reported to be 31% about a year ago, chronic respiratory failure on continuous home oxygen at 4LPM, and other medical problems, presented to the hospital with hypercapnic respiratory failure. Initial blood gas with pH = 7.12, PCO2 = 53, PO2 = 85. She was admitted to the ICU and required intubation. Patient had bronchoscopy performed on 12/27, bronch washings growing pseudomonas aeruginosa. ID is consulted and patient being treated for RAUL as well. Patient improved, was extubated, and is ordered to wear bipap at night. CO2 chronically elevated and currently on regular lab work is 41. Patient having trouble tolerating bipap at night, respiratory status still seems somewhat tenuous, and she does have end- stage COPD. Palliative care is consulted to discuss goals of care and clarify code status, as patient is DNR/DNI currently, but was intubated during this admission. -Met with patient and her in room 456-1. Patient is somewhat drowsy, but oriented x4. She has some short-term memory issues per her . -Patient states she is feeling weak from being in hospital, and prior to this illness she was completely independent at home. Wears oxygen continuously, but was able to climb stairs, etc. -In regards to current goals, patient states she wants to "get better," improve her strength back to baseline and go home after she has a short-term rehab stay. [facility]errals to [facility]. Patient has outstanding bill and JV. Case management following. Uncertain if patient could tolerate the three hours of therapy. -In regards to code status, both patient and her agreed that she is a DNR in the case of cardiac arrest, but would be agreeable to short-term intubation as part of treatment if needed. She would not want to live long-term on machines. Will change to a conditional code. -Patient and seem to have limited insight into how severe her lung disea se is. We talked about the importance of wearing the bipap, relation to carbon dioxide, risks of high carbon dioxide, etc. -Palliative will follow intermittently throughout hospitalization and certainly would be available during any further hospital admissions. (2) RAUL (mycobacterium avium-intracellulare) infection: (3) Acute and chronic respiratory failure: (4) Pneumonia: Laterality: unspecified laterality Lung location: unspecified part of lung Pneumonia type: due to unspecified organism Qualified Code(s): J18.9 - Pneumonia, unspecified organism (5) COPD (chronic obstructive pulmonary disease): Supervising Physician Co-Signing Physician Notes Chart reviewed, patient seen and examined this afternoon. Patient had her BiPAP on during exam. Did complain of fatigue PE: Appears comfortable, NAD HEENT: EOMI, hearing within normal limits Respiratory: Good air movement bilaterally, BiPAP in place CV: Regular rate, no edema Abdomen: Soft, nontender Neuro: Awake, fatigued Agree with above note, assessment and plan as per KAELA Fernandes. Will continue to follow and assist patient and family with medical decision making. Plan at this time is for rehab and then return home. History of Present Illness Reason for Consultation: Goals of care Requesting Physician: Dr. Martinez Attending Physician: Tory Wall MD History of Present Illness This 78 year old female patient with PMH severe COPD with FEV1 reported to be 31% about a year ago, chronic respiratory failure on continuous home oxygen at 4LPM, and other medical problems, presented to the hospital with hypercapnic respiratory failure. Initial blood gas with pH = 7.12, PCO2 = 53, PO2 = 85. She was admitted to the ICU and required intubation. Patient had bronchoscopy performed on 12/27, bronch washings growing pseudomonas aeruginosa. ID is consulted and patient being treated for RAUL as well. Patient improved, was extubated, and is ordered to wear bipap at night. CO2 chronically elevated and currently on regular lab work is 41. Patient having trouble tolerating bipap at night, respiratory status still seems somewhat tenuous, and she does have end- stage COPD. Palliative care is consulted to discuss goals of care and clarify code status, as patient is DNR/DNI currently, but was intubated during this admission. Thank you kindly for this consult. Palliative care team will follow as needed. Allergies Allergy/AdvReac Type Severity Reaction Status Date / Time [id number] Reductase Allergy Unknown Verified 12/27/18 16:09 Inhibitor Home Medications Home Medications Medication Instructions Recorded Confirmed Type Incruse Ellipta 1 inh INHALATION DAILY 08/21/18 12/27/18 History albuterol sulfate 2 puff INHALATION QID PRN 08/21/18 12/27/18 History albuterol sulfate 2.5 mg INHALATION Q4H PRN 08/21/18 12/27/18 History alprazolam 0.25 mg PO DAILY PRN 08/21/18 12/27/18 History cholecalciferol (vitamin D3) 1,000 unit PO DAILY 08/21/18 12/27/18 History [Vitamin D3] cranberry extract 250 mg PO DAILY 08/21/18 12/27/18 History metformin 500 mg PO BID 08/21/18 12/27/18 History omega 6-[id number]-mff-fish oil [Fish Oil] 1 cap PO DAILY 08/21/18 12/27/18 History risedronate 35 mg PO WK 08/21/18 12/27/18 History vitamin E 1,000 unit PO DAILY 08/21/18 12/27/18 History prednisone 10 mg tablet 10 mg PO DAILY #90 tab 09/04/18 12/27/18 Rx diltiazem CD 300 mg 300 mg PO QAM #90 cap 11/16/18 12/27/18 Rx capsule,extended release 24 hr niacin ER 500 mg tablet,extended 500 mg PO BID #180 tab 01/02/19 Rx release 24 hr Patient History Medical History Acute and chronic respiratory failure with hypercapnia (Resolved) Anemia (Resolved) COPD exacerbation (Resolved) Chronic obstructive pulmonary disease (Resolved) Chronic respiratory failure with hypoxia and hypercapnia (Resolved) Falls frequently (Resolved) Fatty liver (Resolved) HTN (hypertension) (Resolved) Hyperlipidemia (Resolved) Hypoxia (Resolved) Impaired fasting glucose (Resolved) Influenza vaccine needed (Resolved) Insomnia (Resolved) Internal hemorrhoids (Resolved) Osteopenia (Resolved) Other specified disorders of bone density and structure, other site (Resolved) PNA (pneumonia) (Resolved 06/20/13) Pleural effusion on left (Resolved) Pneumonia (Resolved) Respiratory distress (Resolved 06/20/13) Respiratory failure (Resolved) Sepsis (Resolved) Shortness of breath (Resolved) Tubular adenoma of colon (Resolved) Type 2 diabetes mellitus (Resolved) Family History Other Family history non-contributory Social History Preferred Language: Welsh Communication Ability: Effective Process Control Manager Required: No Beliefs That Will Affect Care: None marital status: Current Living Situation: Spouse current occupational status: retired Feels Safe at Home: Yes Smoking Status: Former smoker Hx Alcohol Use: No Hx Substance Use: No Review of Systems Constitutional: Const: + weakness ENMT: No dysphagia Resp: + SOB, no cough Cardio: No chest pain, no edema GI: No abdominal pain, no N/V MS: No musculoskeletal pain Neuro: No confusion; +short-term memory loss per the Psych: No anxiety Physical Exam Constitutional: WD/WN, vitals as above comfortable; no acute distress ENMT: external ear and nose normal, oropharynx normal Respiratory: does not use accessory muscles Auscultation: + diminished lung sounds and + rhonchi (scant) Cardiovascular: Rate/Rhythm: regular rate and regular rhythm Vessels: normal peripheral pulses Gastrointestinal (Abdomen): normal bowel sounds, soft, nontender, no hepatosplenomegaly Neurologic: moves all extremities and awake Psychiatric: Orientation: alert and oriented x 3 Insight: + limited insight (forgetfulness) Results & Data Vital Signs (Past 12 Hours) Vital Signs Temp Pulse Resp BP Pulse Ox 01/08/19 11:39 74 18 93 01/08/19 10:11 72 18 96 01/08/19 07:41 36.8 C 99 H 20 157/69 H 90 Time Spent Midlevel 50 minutes with >50% of the time spent at bedside with patient and family discussing condition and GOC.
--- NOTE | 2019-01-08 15:13 | Family Medicine Progress Note ---
Date of Service January 08, 2019 Assessment & Plan (1) COPD (chronic obstructive pulmonary disease): Elderly female with past medical history of severe COPD on 4L at home, HTN, T2DM p/w acute hypoxic hypercapnic respiratory failure requiring ICU stay with intubation. COPD exacerbation -Secondary to pneumonia. Patient status post bronchoscopy, cultures show pansensitive Pseudomonas. -Back to baseline oxygen requirements. Recommend she continue to use CPAP at n ight with elevating CO2 levels -Pred taper initiated, back to daily 10mg dose (home dose) -Albuterol and DuoNebs as needed. Patient with end stage COPD very poor FEV1 and required intubation on this admission will order palliative care consult to further discuss prognosis and end of life goals with patient and family. Pneumonia and worsening bronchiectasis -Bronch in ICU with cultures showing pansensitive Pseudomonas. -Infectious disease consulted following recommendations -Continue amikacin, ethambutol, rifampin for RAUL suspect on CT findings. DC pending results of MAC culture -Cefepime completed for Pseudomonas in sputum culture - d/tonja 01/06 -Monitor renal function while on amikacin -Pt will need outpatient follow up with Dr. Buck of [place] Acute on chronic hypoxic hypercapnic respiratory failure -Extubated on 12/30 -Pt continuing to retain CO2 overnight as she does not tolerate use of CPAP/BIPAP. -Using her CPAP more consistently, reiterated need for CPAP use. Pt reports she "just doesn't like it" Paroxysmal A. fib with RVR--suspected based on tele monitoring No EKG evidence of afib. Pt has had episodes of rapid ventricular rate; EKG repeated on 12/31 and revealed sinus rhythm with PACs. Considering high ventricular rates likely would benefit from anticoagulation. Due to current antibiotics, unable to use DOACs. Converted CCBs to lopressor BID and heparin bridge to warfarin. Anticoagulation Warfarin 4 mg daily -PT/INR daily 3.0 today Hypertension Heart rates have been better controlled -Continue lopressor 50 BID History of fatty liver disease -Trend LFTs and follow as outpatient Diabetes type 2 -Last A1c 7.27 August 2018 -Glycemic consult; ISS FENa: Diabetes type 2 Code Status: DNR/DNI DVT PPX: warfarin low dose normogram PT/OT:Ordered; no notes as of yet; will need for rehab dispo Dispo: MedSurg, rehab/SNF on d/c Supervising Physician Co-Signing Physician Notes Resident Physician Supervision Note: I independently interviewed and examined the patient and verified the mondragon history and physical, reviewed labs and image studies, discussed the case with the resident Dr. Martinez and agree with the findings and care plan. Subjective Ms. Mcclendon is very somnolent this morning, she is able to respond to me and is easily rousable but was not interested in long conversation. She is currently wearing her nasal cannula on 5L and oxygenating at 90%. Review of Systems Review of Systems: All systems reviewed & are unremarkable except as noted in HPI & below Physical Exam Constitutional: WD/WN, vitals as above comfortable; no acute distress somnolent Eyes: PERRL, conjunctivae normal, anicteric sclerae ENMT: external ear and nose normal, oropharynx normal Respiratory: no respiratory distress and does not use accessory muscles Auscultation: + crackles (scant) and + rhonchi (scant) Cardiovascular: RRR, no murmur, no edema Rate/Rhythm: regular rate and regular rhythm Heart Sounds: normal S1 and normal S2; no gallop Vessels: normal peripheral pulses; no JVD Gastrointestinal (Abdomen): normal bowel sounds, soft, nontender, no hepatosplenomegaly Musculoskeletal: no cyanosis or clubbing, extremities motor strength 5/5 Spine: thoracic spine normal to inspection and lumbar spine normal to inspection Skin: no rashes, warm and dry normal turgor; no lesions Neurologic: patellar DTR's 2+ bilat, sensation intact no focal motor deficits Results & Data Vital Signs (Past 12 Hours) Vital Signs Temp Pulse Pulse Resp BP Pulse Ox 01/08/19 14:44 36.7 C 89 20 127/70 90 01/08/19 13:47 82 18 90 01/08/19 13:26 78 18 94 01/08/19 11:39 74 18 93 01/08/19 10:11 72 18 96 01/08/19 07:41 36.8 C 99 H 20 157/69 H 90 PG Care Time/CCT Total # of Minutes Spent Total Time Spent with Patient: Total time spent is greater than 50% in coordination of care (as documented) at patient's floor/unit and/or counseling patient: Resident Activity Tracking Resident Involvement: Resident Care Provided Care Provided: Adult Hospital Medicine
[2019-01-08] MEDS: WARFARIN SOD 4 MG TAB PO SCH (16:55)
[2019-01-08] MEDS: MAGNESIUM OXIDE 400 MG TAB PO SCH (20:47)
[2019-01-08] MEDS: ETHAMBUTOL HCL 400 MG TAB PO SCH (20:47)
[2019-01-08] MEDS: ETHAMBUTOL HCL 100 MG PO SCH (20:47)
[2019-01-09 07:04] LABS: Basophils # (auto) 0.03 K/uL (0-0.2); Basophils % (auto) 0.3 %; Eosinophils # (auto) 0.22 K/uL (0-0.5); Eosinophils % (auto) 2.3 %; Hematocrit (blood only) 31.3 % (37-47); Hemoglobin 9.3 g/dL (12.0-16.0); Immature Granulocytes # (auto) 0.04 K/uL (0.00-0.02); Immature Granulocytes % (auto) 0.4 %; Mean Corpuscular Hemoglobin 28.8 pg (25-34); Mean Corpuscular Hgb Conc 29.7 g/dL (32-36); Mean Corpuscular Volume 96.9 fL (80-100); Mean Platelet Volume 9.5 fL (7.4-10.4); Monocytes # (auto) 1.06 K/uL (0.11-0.59); Monocytes % (auto) 11.2 %; Neutrophils # (auto) 6.23 K/uL (1.4-6.5); Neutrophils % (auto) 65.8 %; Platelet Count 219 K/uL (130-400); RDW Coefficient of Variation 14.3 % (11.5-14.5); RDW Standard Deviation 50.3 fL (36.4-46.3); Red Blood Count 3.23 M/uL (4.2-5.4); White Blood Count 9.48 K/uL (4.8-10.8)
[2019-01-09 07:50] LABS: BUN Creatinine Ratio 19.6 (10-20); Creatinine Clr Calc Pharmacy 60.9 ml/min; Est GFR (African American) 89.9; Est GFR (Non-African American) 77.6
[2019-01-09 08:06] LABS: INR 3.4 (0.9-1.1); Prothrombin Time 32.3 Seconds (9.0-12.0)
[2019-01-09] MEDS: LANSOPRAZOLE 30 MG SOLTAB NG SCH (08:14)
[2019-01-09] MEDS: predniSONE 10 MG TABLET NG SCH (08:15)
[2019-01-09] MEDS: METOPROLOL TARTRATE 25 MG TAB PO SCH ×2 (08:16→21:10)
[2019-01-09] MEDS ORDERED: rifAMPin 300 MG CAPSULE PO ONE (08:45)
[2019-01-09] MEDS ORDERED: AZITHROMYCIN 250 MG TAB PO ONE (09:00)
[2019-01-09] MEDS: INSULIN ASPART 100 UNITS/ML 3 ML PEN SC SCH ×4 (09:28→21:00)
[2019-01-09] MEDS: INSULIN HUMAN NPH SC SCH (10:09)
[2019-01-09] MEDS ORDERED: INSULIN ASPART 100 UNITS/ML 3 ML PEN SC SCH (11:30)
--- NOTE | 2019-01-09 17:27 | Family Medicine Progress Note ---
Date of Service January 09, 2019 Assessment & Plan (1) COPD (chronic obstructive pulmonary disease): Elderly female with past medical history of severe COPD on 4L at home, HTN, T2DM p/w acute hypoxic hypercapnic respiratory failure requiring ICU stay with intubation. COPD exacerbation -Secondary to pneumonia. Patient status post bronchoscopy, cultures show pansensitive Pseudomonas. -Back to baseline oxygen requirements. Recommend she continue to use CPAP at n ight with elevating CO2 levels -Pred taper initiated, back to daily 10mg dose (home dose) -Albuterol and DuoNebs as needed. Patient with end stage COPD very poor FEV1 and required intubation on this admission will order palliative care consult to further discuss prognosis and end of life goals with patient and family. Palliative care met with family and discussed her life expectancy. Pneumonia -Bronch in ICU with cultures showing pansensitive Pseudomonas. -Cefepime DCd 01/06 -Infectious disease consulted following recommendations -Continue amikacin, ethambutol, rifampin for RAUL suspect on CT findings. DC pending results of MAC culture -Cefepime completed for Pseudomonas in sputum culture -Monitor renal function while on amikacin If final acid fast bacilli culture is negative will discontinue RAUL antibiotics. -Pt will need outpatient follow up with Dr. Buck of [place] Acute hypoxic hypercapnic respiratory failure -Extubated on 12/30 -Pt continuing to retain CO2 overnight as she does not tolerate use of CPAP/BIPAP. -Using her CPAP more consistently, reiterated need for CPAP use. Pt reports she "just doesn't like it" Paroxysmal A. fib with RVR--suspected based on tele monitoring No EKG evidence of afib. Pt has had episodes of rapid ventricular rate; EKG repeated on 12/31 and revealed sinus rhythm with PACs. Considering high ventricular rates likely would benefit from anticoagulation. Due to current antibiotics, unable to use DOACs. Converted CCBs to lopressor BID and heparin bridge to warfarin. Anticoagulation Warfarin 4 mg daily -PT/INR daily 3.4 today holding coumadin Hypertension Heart rates have been better controlled Continue lopressor 50 BID History of fatty liver disease Trend LFTs and follow as outpatient Diabetes type 2 Last A1c 7.27 August 2018 Glycemic consult; ISS FENa: Diabetes type 2 Code Status: DNR/DNI DVT PPX: warfarin low dose normogram PT/OT:Ordered; no notes as of yet; will need for rehab dispo Dispo: MedSurg, rehab/SNF on d/c Supervising Physician Co-Signing Physician Notes Resident Physician Supervision Note: I independently interviewed and examined the patient and verified the mondragon history and physical, reviewed labs and image studies, discussed the case with the resident Dr. Martinez and agree with the findings and care plan. Subjective Ms. Mcclendon is much more alert this morning, she endorses that she is feeling much better and is at her baseline with breathing. Does not have any complaints currently and denies fever chills, chest pain or shortness of breath beyond her baseline. Hoping [facility] be [facility] or [facility]. Review of Systems Review of Systems: All systems reviewed & are unremarkable except as noted in HPI & below Physical Exam Constitutional: WD/WN, vitals as above comfortable; no acute distress Eyes: PERRL, conjunctivae normal, anicteric sclerae ENMT: external ear and nose normal, oropharynx normal Respiratory: no respiratory distress and does not use accessory muscles Auscultation: + crackles (scant) and + rhonchi (scant) Cardiovascular: RRR, no murmur, no edema Rate/Rhythm: regular rate and regular rhythm Heart Sounds: normal S1 and normal S2; no gallop Vessels: normal peripheral pulses; no JVD Gastrointestinal (Abdomen): normal bowel sounds, soft, nontender, no hepatosplenomegaly Musculoskeletal: no cyanosis or clubbing, extremities motor strength 5/5 Spine: thoracic spine normal to inspection and lumbar spine normal to inspection Skin: no rashes, warm and dry normal turgor; no lesions Neurologic: patellar DTR's 2+ bilat, sensation intact no focal motor deficits Results & Data Vital Signs (Past 12 Hours) Vital Signs Temp Pulse Resp BP Pulse Ox 01/09/19 15:10 36.8 C 106 H 20 144/69 H 96 01/09/19 11:43 36.7 C 76 20 138/76 92 01/09/19 11:33 36.9 C 80 19 96/59 L 95 01/09/19 07:00 37 C 71 28 H 152/67 H 96 PG Care Time/CCT Total # of Minutes Spent Total Time Spent with Patient: Total time spent is greater than 50% in coordination of care (as documented) at patient's floor/unit and/or counseling patient: Resident Activity Tracking Resident Involvement: Resident Care Provided Care Provided: Adult Hospital Medicine
[2019-01-09] MEDS: MAGNESIUM OXIDE 400 MG TAB PO SCH (21:11)
[2019-01-09] MEDS: ETHAMBUTOL HCL 100 MG PO SCH (21:12)
[2019-01-09] MEDS: ETHAMBUTOL HCL 400 MG TAB PO SCH (21:12)
[2019-01-10 06:41] LABS: Basophils # (auto) 0.04 K/uL (0-0.2); Basophils % (auto) 0.5 %; Eosinophils # (auto) 0.24 K/uL (0-0.5); Eosinophils % (auto) 2.9 %; Hematocrit (blood only) 32.6 % (37-47); Hemoglobin 9.6 g/dL (12.0-16.0); Immature Granulocytes # (auto) 0.02 K/uL (0.00-0.02); Immature Granulocytes % (auto) 0.2 %; Lymphocytes # (auto) 1.59 K/uL (1.2-3.4); Lymphocytes % (auto) 19.3 %; Mean Corpuscular Hemoglobin 28.4 pg (25-34); Mean Corpuscular Hgb Conc 29.4 g/dL (32-36); Mean Corpuscular Volume 96.4 fL (80-100); Mean Platelet Volume 9.5 fL (7.4-10.4); Monocytes # (auto) 0.99 K/uL (0.11-0.59); Neutrophils # (auto) 5.35 K/uL (1.4-6.5); Neutrophils % (auto) 65.1 %; Platelet Count 231 K/uL (130-400); RDW Coefficient of Variation 14.2 % (11.5-14.5); RDW Standard Deviation 49.7 fL (36.4-46.3); Red Blood Count 3.38 M/uL (4.2-5.4); White Blood Count 8.23 K/uL (4.8-10.8)
[2019-01-10 06:52] LABS: INR 2.2 (0.9-1.1); Partial Thromboplastin Ratio 1.5; Partial Thromboplastin Time 41.9 Seconds (21.0-31.0); Prothrombin Time 20.9 Seconds (9.0-12.0)
[2019-01-10 07:17] LABS: BUN Creatinine Ratio 21.3 (10-20); Calcium 9.2 mg/dl (8.5-10.1); Creatinine Clr Calc Pharmacy 71.6 ml/min; Est GFR (African American) 99.6; Est GFR (Non-African American) 85.9; Potassium 3.9 mmol/L (3.5-5.1)
[2019-01-10] MEDS: METOPROLOL TARTRATE 25 MG TAB PO SCH (08:18)
[2019-01-10] MEDS: predniSONE 10 MG TABLET NG SCH (08:18)
[2019-01-10] MEDS: LANSOPRAZOLE 30 MG SOLTAB NG SCH (08:18)
[2019-01-10] MEDS: INSULIN HUMAN NPH SC SCH (08:20)
[2019-01-10] MEDS: INSULIN ASPART 100 UNITS/ML 3 ML PEN SC SCH ×2 (08:22→12:56)
--- NOTE | 2019-01-10 13:55 | Pharmacy Report ---
Pharmacy Glycemic Short Note 2 - Date of Service January 10, 2019 - Glycemic Short BSG Results (Last 24 hours): 01/09/19 01/09/19 01/10/19 16:45 20:09 06:06 Glucose 106 H POC Glucose 128 H 106 H 01/10/19 01/10/19 07:50 11:55 Glucose POC Glucose 102 H 150 H OUTPATIENT ANTIDIABETIC REGIMEN: * Metformin 500mg PO BID * A1c = 7.4% 12/28/18 ASSESSMENT: 01/10 * Patient has been well controlled over the past 48 hours, did have tend to have higher BSG at dinner, therefore carb ratio decreased at lunch only. * Patient's BSGs ranged from 106-147 yesterday, continuing 6 units of NPH with prednisone 10 mg in the morning 01/05 * Patient has had good glycemic control over the last 48 hours, requiring ~26-27 units of insulin per day * Prednisone tapering to 10 mg tomorrow morning, patient did have elevated bsg at lunch today therefore will keep NPH tomorrow but decrease to 6 units * Continue current carb ratio/correction factor 01/03 * Patient received 34 units of insulin yesterday, 18 of which were basal NPH with prednisone * Patient's BSGs were acceptable yesterday ranging from 107-142 yesterday. * Prednisone tapered to 20 mg this morning, adjust NPH dose to 12 units * Carb ratio was loosened with dinner and HS checks due to trend for lower BSGs in the evening- will continue this tonight 01/01 * Patient received total of 32 units of insulin yesterday, 13 of which were basal * Hypoglycemic event yesterday PM, fasting this morning 98, patient was switched to 18 units of NPH to coincide with prednisone dose and will hopefully avoid steroid wearing off/hypoglycemia in the morning * Lunchtime BSG today 131, will continue current CF/CR today 12/31 * Patient received total of 34 units of insulin yesterday, of which 15 were basal insulin * Fasting BSG this AM 92 mg/dL - will scale back on Lantus for today, will wait to ensure BSGs trending up first * Lunchtime BSG trending up to 200s, continue same CF/CR but added Lantus back on - did small reduction from 15 units to 13 units as BSGs were in 70s overnight 12/30 * Patient transitioned off drip yesterday, received 10 units of Lantus plus drip and 16 units of SSI * Fasting BSG this AM 102 mg/dL - continues on prednisone 40 mg daily then tapering * Would have expected higher fasting with steroids on board, waited until lunch to reassess Lantus needs. BSG at lunch 169 mg/dL - diet continued * Will order Lantus 15 units x 1 for now also tighten CR at dinner. Will keep at Q4 hr checks since steroids on board, may d/c tomorrow if BSGs stable 12/29 * BSGs well controlled with insulin drip. Drip running at 0.4-0.6unit/hr over last 6+ hrs * Pt extubated at this time, continuous tube feeds off, prednisone taper continues, ps aeruginosa in BAL cx * Will transition to SQ regimen at this time. * Basal dose will be based upon latest drip rates. Bolus dosing will be based upon wt and mod-severe stress level given current severity of illness and steroid provision 12/28 * Type 2 diabetic admitted for respiratory failure, hypercapneic resp failure w/ resp acidosis leading to intubation/mech ventilation * IV steroid therapy and abx therapy initiated for CAP with risk factors for resistant organism + treatment for possible RAUL pulm infxn * IV insulin drip initiated per ICU protocol for BSG > 220 * Insulin drip continues at this time at 1.85 units/hr, last 3 BSGs in goal range at this rate and monitoring may decrease to Q 2 hrs in near future * Pt failed SBT today and will remain intubated - reassess readiness for extubation tomorrow AM * Steroid regimen changed from Solu-medrol 30mg TID to Prednisone taper * Tube feedings planned for later today as pt not ready for extubation PLAN FOR INPATIENT GLYCEMIC CONTROL: * NPH 6 units qAM * Novolog SQ ACHS * Goal range 110-140 * CF 30 mg/dL/unit * CR 1 unit per 10 gm CHO consumed at breakfast/lunch; 1 unit per 12 gm CHO at dinner/hs Plan for Discharge Patient's A1c 7.4% on 12/28/18 this is an acceptable A1c given patient's age and comorbidities. Could potentially titrate metformin up if tolerated/desired. If BSGs elevated outpatient due to prednisone could consider adding low NPH dose in morning with prednisone dose.
--- NOTE | 2019-01-10 15:07 | Discharge Summary ---
Date of Service January 10, 2019 Admission HPI Per Admitting Provider 78yo C female with very severe COPD (FEV1 of 31% per Pulmonary note from September 2017), oxygen dependence on 4L NC during the day and HS presenting with acute hypoxic hypercapnic respiratory failure. History obtained from and granddaughter at bedside as well as chart review and discussion with ER staff. Patient intubated and sedated at time of encounter. Has been reports that yesterday the patient was sleepy and less interactive than usual. This morning the found her to be "lifeless", minimally responsive and somnolent. Saturation reported to be 73% this morning while patient was on 4 L of oxygen by nasal cannula. Her turned up the oxygen and later placed her on CPAP with improvement in saturation to approximately 90%. When she arrived to the emergency room she was found to be tachycardic at 122 bpm, tachypneic at 37 breaths/min. Initially with adequate saturation of 99% on 4 L of nasal cannula. Patient continued to be tachypneic and was placed on BiPAP. Initial blood gas with pH = 7.12, PCO2 = 53, PO2 = 85 (prior ABGs show chronic respiratory acidosis with CO2 70-80's and HCO3 in 40's) she ultimately failed BiPAP and was intubated. Repeat gas with pH=7.36, pCO2 of 78 and pO2=74. CT image results as below ER Course: Vancomycin 1500mg, Azithromycin 500mg, Solumedrol 125mg, Zosyn 4.5 gm, Albuterol Succinylcholine, Etomidate, Propofol Rifampin, Ethambutol, Amikacin - Ordered, not yet given Admission Exam Per Admitting Provider General: patient intubated, sedated, moving all extremities spontaneously Skin: warm, dry, intact, no rashes or lesions HEENT: NC/AT, pupils pinpoint, reactive to light, anicteric sclera, conjunctiva without injection, external ear normal to inspection and nontender, nares patent, moist mucus membranes, ETT in place, neck supple, trachea midline, no LAD, no thyromegaly, no JVD Heart: +S1/S2, regular, tachycardic, no m/r/g Lungs: Diminished breath sounds bilaterally, coarse crackles left mid lung field and left base, crackles right mid lung field, scattered end expiratory wheezing bilaterally Abd: +BS, soft, nondistended, no masses/organomegaly/ascites Ext: warm, 2+ pulses in UE/LE bilaterally, no clubbing/cyanosis or edema Neuro: Patient intubated, sedated, opens eyes to verbal stimuli, moving extremities Principal Diagnosis COPD exacerbation pneumonia Discharge Exam Constitutional WD/WN, vitals as above comfortable; no acute distress Eyes PERRL, conjunctivae normal, anicteric sclerae ENMT external ear and nose normal, oropharynx normal Respiratory no respiratory distress and does not use accessory muscles Auscultation: + crackles (scant) and + rhonchi (scant) Cardiovascular RRR, no murmur, no edema Rate/Rhythm: regular rate and regular rhythm Heart Sounds: normal S1 and normal S2; no gallop Vessels: normal peripheral pulses; no JVD Gastrointestinal (Abdomen) normal bowel sounds, soft, nontender, no hepatosplenomegaly Musculoskeletal no cyanosis or clubbing, extremities motor strength 5/5 Spine: thoracic spine normal to inspection and lumbar spine normal to inspection Skin no rashes, warm and dry normal turgor; no lesions Neurologic patellar DTR's 2+ bilat, sensation intact no focal motor deficits Discharge Data Allergies Allergy/AdvReac Type Severity Reaction Status Date / Time Dgnkocw-Iqi-Xgf Reductase Allergy Unknown Verified 12/27/18 16:09 Inhibitor Consultations 12/27/18 14:41 ED Decision to Admit Stat 12/27/18 15:37 Consult Infectious Diseases Stat 12/27/18 17:44 Consult Plastic Surgery Specialist Routine 01/01/19 08:42 Consult Case Management - Discharge Planning Routine 01/08/19 11:07 Consult Palliative Care Routine 01/10/19 14:49 Consult Anticoagulation Clinic Routine Ordered Studies 12/27/18 12:35 CT head/brain wo con Stat 12/27/18 13:37 CT angio chest PE protocol Stat Hospital Course (1) COPD (chronic obstructive pulmonary disease): Elderly female with past medical history of severe COPD on 4L at home, HTN, T2DM p/w acute hypoxic hypercapnic respiratory failure requiring ICU stay with intubation. COPD exacerbation -Secondary to pneumonia. Patient status post bronchoscopy, cultures show pansensitive Pseudomonas. -Back to baseline oxygen requirements. Recommend she continue to use CPAP at night with elevating CO2 levels -Was initially on IV high dose steroids, pred taper initiated, back to daily 10mg dose (home dose) Patient with end stage COPD very poor FEV1 31% and required intubation on this admission Palliative care met with family and discussed her life expectancy and goals of care, patient says she does want to be intubated short term in future but would not want any CPR under any circumstances Pneumonia Bronch in ICU with cultures showing pansensitive Pseudomonas. Cefepime through 01/06 CT showing lesions suspicious for RAUL Infectious disease consulted following recommendations -Continue amikacin, ethambutol, rifampin for RAUL suspect on CT findings. DC'd on day of discharge pending results of MAC culture Pt will need outpatient follow up with Dr. Buck of [place] Acute on chronic hypoxic hypercapnic respiratory failure -Extubated on 12/30 -Pt continuing to retain CO2 overnight as she does not tolerate use of CPAP/BIPAP. -Using her CPAP more consistently, reiterated need for CPAP use. Pt reports she "just doesn't like it" Paroxysmal A. fib with RVR--suspected based on tele monitoring Pt has had episodes of rapid ventricular rate; not captured on 12 lead EKG repeated on 12/31 and revealed sinus rhythm with PACs. Considering high ventricular rates likely would benefit from anticoagulation. Due to current antibiotics, unable to use DOACs. Converted CCBs to lopressor BID and heparin bridge to warfarin. Anticoagulation Warfarin 4 mg daily Discussed case with Dr. Wade, will follow with outpatient anticoagulation clinic for new anticoagulant use Hypertension Heart rates have been better controlled started lopressor 50 BID and BP and rate have been well controlled Diabetes type 2 Last A1c 7.27 August 2018 Follow up with PCP Conditioning: Did well with PT/OT; they recommended home with home health feels comfortable that she will thrive at home and that she has gone through rehab exercises before and is motivated to continue to get stronger. Total Time Total Time Spent Total Time Spent (In Minutes): See attending attestation Discharge Plan Discharge Items Patient Disposition: Home - Home Health Services Reason For Visit: HYPOXIC, HYPERCAPNIC RF Discharge Diagnosis: COPD exacerbation, acute hypoxemic respiratory failure, hypercapnic respiratory failure Activity: Resume your previous activity Non-emergency contact: Primary Care Provider and Satellite Tv Technician Call non-emergency contact if: you have any medication questions, your symptoms worsen, your pain is not controlled and your temperature is above 101 Follow-up/Referrals: Matias Ram III, MD [Primary Care Provider] - Diet: Carb Consistent or DM2 and Heart Healthy Addtl Attending Provider Instructions: Ms. Mcclendon, It was our pleasure to treat you for your COPD exacerbation here at [facility]. We believe this was exacerbated by pneumonia, an infection in your lungs. We have treated you with IV antibiotics for your pneumonia and feel that you are returning to your baseline. We have also noted you to be in atrial fibrillation during this visit. Atrial fibrillation is an irregular heart rate that can predispose you to blood clots and strokes so we started a new medication here in the hospital, warfarin. We will be discharging you home on warfarin and will need you to take 4mg once per day and follow up with your primary care provider to ensure that you are properly anticoagulated. We are also sending you home with a medication to keep your heart rate under control. Metoprolol 50 mg to be taken two times per day. If you have any lightheadedness or dizziness please call your primary care doctor to consider stopping or cutting back this medication as it can lower blood pressure. Pending Studies at Discharge: No Stand-Alone Forms: My [facility], Smoking Cessation Medications and DC Order Prescriptions: New warfarin [Coumadin] 4 mg Tablet 4 mg PO DAILY@1600 30 Days Qty: 30 RF: 0 metoprolol tartrate 25 mg Tablet 50 mg PO BID 30 Days Qty: 120 RF: 0 Continued diltiazem HCl 300 mg capsule,extended release 24hr 300 mg PO QAM Qty: 90 RF: 3 niacin 500 mg tablet extended release 24 hr 500 mg PO BID Qty: 180 RF: 3 prednisone 10 mg tablet 10 mg PO DAILY Qty: 90 RF: 3 metformin 500 mg tablet 500 mg PO BID RF: 0 Incruse Ellipta 62.5 mcg/actuation blister with device 1 inh inhalation DAILY RF: 0 risedronate 35 mg tablet 35 mg PO WK RF: 0 albuterol sulfate 2.5 mg /3 mL (0.083 %) Solution For Nebulization 2.5 mg INHALATION Q4H PRN (Reason: Shortness Of Breath Or Wheezing) RF: 0 cranberry extract 250 mg Capsule 250 mg PO DAILY RF: 0 alprazolam 0.25 mg Tablet 0.25 mg PO DAILY PRN (Reason: Anxiety) RF: 0 albuterol sulfate 90 mcg/actuation Hfa Aerosol Inhaler 2 puff INHALATION QID PRN (Reason: Shortness Of Breath Or Wheezing) RF: 0 cholecalciferol (vitamin D3) [Vitamin D3] 1,000 unit Tablet 1,000 unit PO DAILY RF: 0 omega 8-[id number]-ftd-fish oil [Fish Oil] 1,000 mg (120 mg-180 mg) Capsule 1 cap PO DAILY RF: 0 Discontinued vitamin E 1,000 unit Capsule 1,000 unit PO DAILY RF: 0 Discharge Orders: Discharge Order (Routine); Ordered 01/10/19 Ordered By: Noam Dennison/Other Patient Handouts: Hyperglycemia, Diabetes Type 2 Coping Admission Data Admit Date/Time: 12/27/18 15:43 Attending Provider: Tory Wall Admit Provider: Bel Peña Primary Care Provider: Matias Ram III Other Providers: [facility] ; Geary,Loami ; Marcelo Dominguez at [facility] ; Bel Peña ; Lauren Donovan ; Jeffrey Cabral ; Milo Lopez ; Araseli Palafox ; Beatrice Wade Other Interventions: Discharge Summary Assessment (RN) Last Done: 01/10/19 14:09 DC Date/Time DO NOT enter until pt leaves facility: 01/10/19 15:42 Supervising Physician Co-Signing Physician Notes Resident Physician Supervision Note: I independently interviewed and examined the patient and verified the mondragon history and physical, reviewed labs and image studies, discussed the case with the resident Dr. Martinez and agree with the findings and care plan. Time spent in discharge 35 min Resident Activity Tracking Resident Involvement: Resident Care Provided Care Provided: Adult Hospital Medicine
== END 2019-01-10 15:42 | disposition home health service (06) | DRG 208 ==
LOC: ED 12:12 → SUATTDRO 15:43 → 1E 15:43 → 2S 12-30 10:55 → 2N 01-05 13:56 → 4W 01-07 07:58

== ENCOUNTER 2019-05-19 18:44 | Inpatient (IN) ==
[2019-05-19] MEDS ORDERED: ALBUT/IPRATROP 3MG/0.5MG NEB 3 ML VIAL NEB STA (19:13)
[2019-05-19 19:33] LABS: Hematocrit (blood only) 35.3 % (37-47); Mean Corpuscular Hemoglobin 30.4 pg (25-34); Mean Corpuscular Hgb Conc 31.2 g/dL (32-36); Mean Corpuscular Volume 97.5 fL (80-100); Mean Platelet Volume 9.1 fL (7.4-10.4); Platelet Count 338 K/uL (130-400); RDW Coefficient of Variation 14.3 % (11.5-14.5); RDW Standard Deviation 51.2 fL (36.4-46.3); Red Blood Count 3.62 M/uL (4.2-5.4); White Blood Count 20.96 K/uL (4.8-10.8)
[2019-05-19 19:44] LABS: Base Excess ABG 4.7 mEq/L (-9-1.8); HCO3 ABG 30 mmol/L (19-24); Oxygen Saturation ABG 94.1 % (90-95); PCO2 ABG 49 mmHg (35-46); PO2 ABG 70 mmHg (80-95); pH ABG 7.41 (7.35-7.45)
[2019-05-19 19:45] LABS: Allen Test POS (Pos)
[2019-05-19 19:56] LABS: Alanine Aminotransferase 49 U/L (12-78); Albumin Level 3.4 gm/dl (3.4-5.0); Aspartate Aminotransferase 34 U/L (15-37); BUN Creatinine Ratio 12.8 (10-20); Blood Urea Nitrogen 16 mg/dl (7-18); Calcium 9.2 mg/dl (8.5-10.1); Carbon Dioxide 32 mmol/L (21-32); Chloride 94 mmol/L (98-107); Est GFR (African American) 48.3; Est GFR (Non-African American) 41.7; Glucose 253 mg/dl (70-99); Magnesium 1.4 mg/dl (1.8-2.4); Potassium 4.1 mmol/L (3.5-5.1); Sodium 138 mmol/L (136-145)
--- NOTE | 2019-05-19 19:57 | XRay Report ---
XR chest 1V portable HISTORY: 79 years-old Female sob acute shortness of breath COMPARISON: Chest radiograph 01/06/2019, CTA chest 12/27/2018 TECHNIQUE: Portable AP view of the chest FINDINGS: Cardiac silhouette is enlarged, unchanged. Calcified plaque of the thoracic aortic arch. Severe emphy sema with chronic fibrotic changes. Chronic volume loss of the left lung with multifocal mixed inters titial and alveolar opacities. Dominant consolidation of the left lung base redemonstrated. There is slightly progressed consolidation of the left lung. Unchanged small left pleural effusion. Right-side d pleural calcifications redemonstrated. No pneumothorax. Degenerative changes of the shoulders and s pine. IMPRESSION: 1. Severe emphysema with chronic fibrotic changes and chronic left lung volume loss. 2. Mildly progressed opacities throughout the left lung may reflect worsened fibrosis with atelectasi s, pneumonitis versus asymmetric pulmonary edema. 3. Calcified pleural plaques of the right hemithorax redemonstrated. 4. Cardiomegaly. 5. Unchanged small left pleural effusion. ACT 112: Negative or not required by law. The above report was generated using voice recognition software. It may contain grammatical, syntax o r spelling errors. Electronically signed by: Eamon Mccloud M.D. 05/19/2019 7:56 PM
[2019-05-19 20:01] LABS: Albumin Globulin Ratio 0.9 (0.9-2); Alkaline Phosphatase 139 U/L (45-117); NT Pro B Type Natriuretic Pept 1005 pg/ml (0-1800); Total Protein 7.4 gm/dl (6.4-8.2); Troponin I < 0.015 ng/ml (0-0.045)
[2019-05-19 20:04] LABS: Basophils # (auto) 0.02 K/uL (0-0.2); Basophils % (auto) 0.1 %; Eosinophils # (auto) 0.03 K/uL (0-0.5); Eosinophils % (auto) 0.1 %; Immature Granulocytes # (auto) 0.06 K/uL (0.00-0.02); Immature Granulocytes % (auto) 0.3 %; Lymphocytes # (auto) 1.39 K/uL (1.2-3.4); Lymphocytes % (auto) 6.6 %; Monocytes # (auto) 1.04 K/uL (0.11-0.59); Neutrophils # (auto) 18.42 K/uL (1.4-6.5); Neutrophils % (auto) 87.9 %
[2019-05-19 20:04] LABS: INR 2.3 (0.9-1.1); Prothrombin Time 22.1 Seconds (9.0-12.0)
[2019-05-19] MEDS: MAGNESIUM SULFATE / D5W 1 GM/100 ML BAG IV SCH ×2 (20:18→21:18)
[2019-05-19] MEDS ORDERED: LEVOFLOXACIN/D5W 750 MG/150 ML BAG IV STA (20:33)
--- NOTE | 2019-05-19 22:12 | History & Physical Report ---
Date of Service May 19, 2019 Assessment & Plan (1) Acute on chronic respiratory failure with hypoxia: Acute on chronic respiratory failure/COPD exacerbation/superimposed pneumonia on pulmonary fibrosis- Admit to monitored bed. Zosyn 3.375 mg IV every 8 hours. Levofloxacin 500 mg IV daily. Xopenex/Atrovent-nebulizers every 6 hours. Pulmicort Respules 0.5 mg inhaled twice daily. Methylprednisolone 20 mg IV every 8 hours. Continue heated high flow nasal cannula oxygen, taper to her baseline 3-3.5 liters nasal cannula O2 as symptoms improve Hold prednisone and Incruse Ellipta. Present on Admission?: Yes (2) COPD exacerbation: See above Present on Admission?: Yes (3) Pneumonia: See above Present on Admission?: Yes (4) Atrial fibrillation and flutter: Atrial fibrillation and flutter/hypertension- Continue diltiazem extended release 300 mg daily. Continue warfarin at current dosing, INR therapeutic at 2.3, and check INR daily. Present on Admission?: Yes (5) Anticoagulated with warfarin: See above Present on Admission?: Yes (6) Hypertension: See above Present on Admission?: Yes (7) Diabetes mellitus type 2, uncontrolled: Hold metformin. Placed on Accu-Cheks before meals and at bedtime with NovoLog coverage per scale. Present on Admission?: Yes (8) Hyperlipidemia: Continue niacin, and fish oil Present on Admission?: Yes History of Present Illness Chief Complaint: The patient presents to the emergency department with complaint of worsening shortness of breath over the past 24 to 48 hours. Primary Care Provider: Matias Ram MD The patient is a 79-year-old female with a past medical history including severe COPD, chronic respiratory failure, osteopenia, hypertension, anxiety, a trial fibrillation flutter on warfarin, RAUL, dyslipidemia, pneumonia and diabetes mellitus. She chronically wears 3 and half liters of oxygen at home. She and her family reports that over the past 24 to 48 hours she is noticed increased shortness of breath with minimal activity. There has been no change in her chronic cough. Allergies Allergy/AdvReac Type Severity Reaction Status Date / Time [id number]-Qoz-Sqp Reductase Allergy Unknown Verified 05/19/19 20:37 Inhibitor Home Medications Home Medications Medication Instructions Recorded Confirmed Type Incruse Ellipta 1 inh INHALATION DAILY 08/21/18 05/19/19 History cholecalciferol (vitamin D3) 1,000 unit PO QAM 08/21/18 05/19/19 History [Vitamin D3] prednisone 10 mg tablet 10 mg PO DAILY #90 tab 09/04/18 05/19/19 Rx diltiazem HCl 300 mg 300 mg PO QAM #90 cap 11/16/18 05/19/19 Rx capsule,extended release 24 hr niacin 500 mg tablet,extended 500 mg PO BID #180 tab 01/02/19 05/19/19 Rx release 24 hr warfarin 1 mg tablet 2 mg PO [id number] tab 05/16/19 05/19/19 History cranberry conc-ascorbic acid 1 cap PO QAM 05/19/19 05/19/19 History cyanocobalamin (vitamin B-12) 0 mcg PO DAILY 05/19/19 05/19/19 History metformin 500 mg PO BID 05/19/19 05/19/19 History [id number]-fish oil [[place]-3 1 cap PO QAM 05/19/19 05/19/19 History Fish Oil] Past Med/Surg History Medical History Acute and chronic respiratory failure with hypercapnia (Resolved) Anemia (Resolved) Chronic obstructive pulmonary disease (Resolved) Chronic respiratory failure with hypoxia and hypercapnia (Resolved) COPD exacerbation (Resolved) Falls frequently (Resolved) Fatty liver (Resolved) Heart murmur HTN (hypertension) (Resolved) Hyperlipidemia Hypoxia (Resolved) Impaired fasting glucose (Resolved) Influenza vaccine needed (Resolved) Insomnia (Resolved) Internal hemorrhoids (Resolved) Osteopenia (Resolved) Other specified disorders of bone density and structure, other site (Resolved) Pleural effusion on left (Resolved) PNA (pneumonia) (Resolved 06/20/13) Pneumonia (Resolved) Respiratory distress (Resolved 06/20/13) Respiratory failure (Resolved) Sepsis (Resolved) Shortness of breath (Resolved) Tubular adenoma of colon (Resolved) Type 2 diabetes mellitus (Resolved) Surgical History H/O colonoscopy Family History Father Myocardial infarction Sister Aneurysm of abdominal aorta Cerebral aneurysm Emphysema lung Mother Emphysema lung Tobacco abuse Son Diabetes Denies family history of Breast cancer Colorectal cancer Social History Preferred Language: Khmer Communication Ability: Effective Hearing Ability: Normal 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 Beliefs That Will Affect Care: None marital status: Current Living Situation: Spouse current occupational status: retired Feels Safe at Home: Yes Smoking Status: Former smoker Age Started Using Tobacco: 23 ; Cigarettes Per Day: has approx 40 pack year history ; Second Hand Exposure: No ; Hx Alcohol Use: No Hx Substance Use: No Childhood Exposure to Second-Hand Smoke: Yes (Mother) Seatbelt Use: always Sunscreen Use: Yes Review of Systems Review of Systems: The patient denies chest pain, palpitations, lower extremity swelling, sore throat, fevers, chills, sweats, vomiting, diarrhea, constipation, abdominal pain, pelvic pain, blood in urine or stool, dysuria, urinary frequency or urgency, memory loss, loss of consciousness, rash, abnormal bruising or bleeding, focal weakness, numbness or tingling in arms or legs, change in generalized arthralgias or myalgias, or night sweats. The review of systems is otherwise negative other than for that already noted above, and at least 10 systems have been reviewed. Physical Exam Physical Exam: The patient is awake, alert and oriented 3, normocephalic and atraumatic, sitting upright in bed and in no acute distress on high flow nasal cannula oxygen. HEENT--PERRL, EOMI, mucous membranes and oropharynx dry. Neck--supple. No JVD. No bruits. Thyroid normal, trachea midline, no adenopathy. Heart--normal S1 and S2. No murmurs, rubs or gallops. Lungs--coarse breath sounds with crackles. No respiratory distress, no accessory muscle use. Abdomen--normal bowel sounds and soft. Nontender. Nondistended. Extremities--no cyanosis or clubbing. No edema. Dermatologic--normal skin turgor, normal color, no abnormal lymph nodes, no rash. Neurologic--cranial nerves II through XII grossly intact. Rheumatologic--normal range of motion. Psychiatric--normal affect. Results & Data Vital Signs (Past 12 Hours) Vital Signs Temp Pulse Pulse Resp BP BP Pulse Ox 05/19/19 20:45 116 H 32 H 158/88 H 90 05/19/19 19:32 119 H 28 H 93 05/19/19 19:31 127 H 30 H 93 05/19/19 19:14 85 L 05/19/19 18:57 99.0 F 127 H 28 H 126/70 77 L Laboratory Results Laboratory Results WBC 20.96 K/uL (4.8-10.8) H 05/19/19 19:23 RBC 3.62 M/uL (4.2-5.4) L 05/19/19 19:23 Hgb 11.0 g/dL (12.0-16.0) L 05/19/19 19:23 Hct 35.3 % (37-47) L 05/19/19 19:23 MCV 97.5 fL (80-100) 05/19/19 19:23 MCH 30.4 pg (25-34) 05/19/19 19:23 MCHC 31.2 g/dL (32-36) L 05/19/19 19:23 RDW Std Deviation 51.2 fL (36.4-46.3) H 05/19/19 19:23 RDW Coeff of Nataly 14.3 % (11.5-14.5) 05/19/19 19:23 Plt Count 338 K/uL (130-400) 05/19/19 19:23 MPV 9.1 fL (7.4-10.4) 05/19/19 19:23 Immature Gran % (Auto) 0.3 % 05/19/19 19:23 Neut % (Auto) 87.9 % 05/19/19 19:23 Lymph % (Auto) 6.6 % 05/19/19 19:23 Fisher % (Auto) 5.0 % 05/19/19 19:23 Eos % (Auto) 0.1 % 05/19/19 19:23 Baso % (Auto) 0.1 % 05/19/19 19:23 Immature Gran # (Auto) 0.06 K/uL (0.00-0.02) H 05/19/19 19:23 Neut # (Auto) 18.42 K/uL (1.4-6.5) H 05/19/19 19:23 Lymph # (Auto) 1.39 K/uL (1.2-3.4) 05/19/19 19:23 Fisher # (Auto) 1.04 K/uL (0.11-0.59) H 05/19/19 19:23 Eos # (Auto) 0.03 K/uL (0-0.5) 05/19/19 19:23 Baso # (Auto) 0.02 K/uL (0-0.2) 05/19/19 19:23 PT 22.1 Seconds (9.0-12.0) H 05/19/19 19:20 INR 2.3 (0.9-1.1) H 05/19/19 19:20 ABG pH 7.41 (7.35-7.45) 05/19/19 19:34 ABG pCO2 49 mmHg (35-46) H 05/19/19 19:34 ABG pO2 70 mmHg (80-95) L 05/19/19 19:34 ABG HCO3 30 mmol/L (19-24) H 05/19/19 19:34 ABG O2 Saturation 94.1 % (90-95) 05/19/19 19:34 ABG Base Excess 4.7 mEq/L (-9-1.8) H 05/19/19 19:34 Marques Test POS (Pos) 05/19/19 19:34 Barometric Pressure 733.1 mm/Hg 05/19/19 19:34 Oxygen Given FIO2 50% 05/19/19 19:34 Sodium 138 mmol/L (136-145) 05/19/19 19:23 Potassium 4.1 mmol/L (3.5-5.1) 05/19/19 19:23 Chloride 94 mmol/L (98-107) L 05/19/19 19:23 Carbon Dioxide 32 mmol/L (21-32) 05/19/19 19:23 Anion Gap 12.0 (3-11) H 05/19/19 19:23 BUN 16 mg/dl (7-18) 05/19/19 19:23 Creatinine 1.23 mg/dl (0.6-1.2) H 05/19/19 19:23 Est Cr Clr Drug Dosing Not Reportable 05/19/19 19:23 Est GFR ( Amer) 48.3 05/19/19 19:23 Est GFR (Non-Af Amer) 41.7 05/19/19 19:23 BUN/Creatinine Ratio 12.8 (10-20) 05/19/19 19:23 Glucose 253 mg/dl (70-99) H 05/19/19 19:23 Lactate 6.1 mmol/L (0.4-2.0) H* 05/19/19 21:04 Calcium 9.2 mg/dl (8.5-10.1) 05/19/19 19:23 Magnesium 1.4 mg/dl (1.8-2.4) L 05/19/19 19:23 Total Bilirubin 1.0 mg/dl (0.2-1) 05/19/19 19:23 AST 34 U/L (15-37) 05/19/19 19:23 ALT 49 U/L (12-78) 05/19/19 19:23 Alkaline Phosphatase 139 U/L (45-117) H 05/19/19 19:23 Troponin I < 0.015 ng/ml (0-0.045) 05/19/19 19:23 NT-Pro-B Natriuret Pep 1005 pg/ml (0-1800) 05/19/19 19:23 Total Protein 7.4 gm/dl (6.4-8.2) 05/19/19 19:23 Albumin 3.4 gm/dl (3.4-5.0) 05/19/19 19:23 Globulin 4.0 gm/dl (2.5-4.0) 05/19/19 19:23 Albumin/Globulin Ratio 0.9 (0.9-2) 05/19/19 19:23 Procalcitonin 0.65 ng/ml (0-0.5) H 05/19/19 19:20 Diagnostic Findings [facility], [place] [phone] XRay Report Patient: GENA BETTENCOURT LAdalvaro Date: 05/19/19 MR#: [id number] Acct ID:[id number]: Date: 1940City Zip: [place] [address] Age: 79Location: ED Sex: F Room/Bed: Att Phy:Diagnosis: HYPOXIA Amrita Phy: Matias Ram, III, MDService Date: 05/19/19 Fam Phy:Interpreting Phy: Saad R Botteicher Admit Phy: Ordering Phy: Maida Siddiqi, cc: ~ XR chest 1V portable HISTORY: 79 years-old Female sob acute shortness of breath COMPARISON: Chest radiograph 01/06/2019, CTA chest 12/27/2018 TECHNIQUE: Portable AP view of the chest FINDINGS: Cardiac silhouette is enlarged, unchanged. Calcified plaque of the thoracic aortic arch. Severe emphysema with chronic fibrotic changes. Chronic volume loss of the left lung with multifocal mixed interstitial and alveolar opacities. Dominant consolidation of the left lung base redemonstrated. There is slightly progressed consolidation of the left lung. Unchanged small left pleural effusion. Right-sided pleural calcifications redemonstrated. No pneumothorax. Degenerative changes of the shoulders and spine. IMPRESSION: 1. Severe emphysema with chronic fibrotic changes and chronic left lung volume loss. 2. Mildly progressed opacities throughout the left lung may reflect worsened fibrosis with atelectasis, pneumonitis versus asymmetric pulmonary edema. 3. Calcified pleural plaques of the right hemithorax redemonstrated. 4. Cardiomegaly. 5. Unchanged small left pleural effusion. ACT 112: Negative or not required by law. The above report was generated using voice recognition software. It may contain grammatical, syntax or spelling errors. Electronically signed by: Eamon Mccloud M.D. 05/19/2019 7:56 PM Dictated: 05/19/191953 Transcribed: 05/19/191953 Code Status & VTE Plan Code Status Full code VTE Prophylaxis Plan VTE Prophylaxis will be ordered: Yes PG Care Time/CCT Total # of Minutes Spent Total Time Spent with Patient: Total time spent is greater than 50% in coordination of care (as documented) at patient's floor/unit and/or counseling patient: Coding Level of Care Code 08149 Initial Inpt Care Lvl 3 Diagnoses Acute on chronic respiratory failure with hypoxia J96.21 COPD exacerbation J44.1 Pneumonia J18.9 Atrial fibrillation and flutter I48.91; I48.92 Anticoagulated with warfarin Z79.01 Hypertension I10 Diabetes mellitus type 2, uncontrolled E11.65 Hyperlipidemia E78.5
[2019-05-20] MEDS ORDERED: GLUCAGON FOR INJ 1 MG VIAL SQ PRN (00:15)
[2019-05-20] MEDS ORDERED: PIPERACILL/TAZOBAC CONSULT ACTIVE PRN (00:15)
[2019-05-20] MEDS ORDERED: CARBOHYDRATES FOR HYPOGLYCEMIA PO PRN (00:15)
[2019-05-20] MEDS ORDERED: POLYETHYLENE (MIRALAX) 17 GM PACK PO PRN (00:15)
[2019-05-20] MEDS ORDERED: GLUCOSE 40% GEL 15 GM TUBE PO PRN (00:15)
[2019-05-20] MEDS ORDERED: MAGNESIUM HYDROXIDE SUSP 30 ML UDC PO PRN (00:15)
[2019-05-20] MEDS ORDERED: ALUMINUM/MAGNESIUM SUSP 30 ML UDC PO PRN (00:15)
[2019-05-20] MEDS ORDERED: ACETAMINOPHEN 325 MG TAB PO PRN (00:15)
[2019-05-20] MEDS ORDERED: DEXTROSE 50% 50 ML SYRINGE IV PRN (00:15)
[2019-05-20] MEDS ORDERED: GLUCOSE 10 TABS/TUBE PO PRN (00:15)
[2019-05-20] MEDS ORDERED: ONDANSETRON INJ 2 MG/ML 2 ML VIAL IV PRN (00:15)
[2019-05-20] MEDS: methylPREDNISolone 20 MG in SYRINGE 0 ML IV SCH ×3 (00:33→15:54)
[2019-05-20] MEDS: MAGNESIUM SULFATE / D5W 1 GM/100 ML BAG IV SCH ×2 (00:34→01:33)
[2019-05-20] MEDS ORDERED: XOPENEX/ATROVENT 1.25mg/0.5MG NEB COMBO NEB SCH (01:00)
[2019-05-20] MEDS: LEVALBUTEROL 1.25MG/0.5ML NEB INH SCH ×4 (01:00→19:17)
[2019-05-20] MEDS: IPRATROPIUM BROMIDE NEB SOLN 0.02% 2.5 ML VIAL INH SCH ×4 (01:00→19:17)
[2019-05-20] MEDS ORDERED: PIPERACILLIN/TAZOBACTAM 3.375 GM in DEXTROSE 5% 100 ML IV ONE (01:00)
[2019-05-20] MEDS: INSULIN ASPART 100 UNITS/ML 3 ML PEN SC SCH ×6 (02:28→21:39)
[2019-05-20] MEDS: PIPERACILLIN/TAZOBACTAM 3.375 GM in DEXTROSE 5% 100 ML IV SCH ×3 (05:09→21:42)
[2019-05-20 06:24] LABS: INR 2.4 (0.9-1.1); Prothrombin Time 22.8 Seconds (9.0-12.0)
[2019-05-20] MEDS: BUDESONIDE 0.5 MG/2 ML VIAL (PULMICORT) NEB SCH ×2 (07:05→19:17)
[2019-05-20 08:24] LABS: Basophils # (auto) 0.01 K/uL (0-0.2); Basophils % (auto) 0.1 %; Hemoglobin 10.6 g/dL (12.0-16.0); Immature Granulocytes # (auto) 0.04 K/uL (0.00-0.02); Immature Granulocytes % (auto) 0.2 %; Lymphocytes # (auto) 1.15 K/uL (1.2-3.4); Mean Corpuscular Hemoglobin 29.8 pg (25-34); Mean Corpuscular Volume 95.5 fL (80-100); Mean Platelet Volume 9.3 fL (7.4-10.4); Monocytes # (auto) 0.73 K/uL (0.11-0.59); Monocytes % (auto) 4.4 %; Neutrophils # (auto) 14.55 K/uL (1.4-6.5); Neutrophils % (auto) 88.3 %; Platelet Count 277 K/uL (130-400); RDW Standard Deviation 48.5 fL (36.4-46.3); Red Blood Count 3.56 M/uL (4.2-5.4); White Blood Count 16.48 K/uL (4.8-10.8)
[2019-05-20 08:26] LABS: Mean Corpuscular Hgb Conc 31.2 g/dL (32-36)
[2019-05-20] MEDS: dilTIAZem HCL 300 MG CAPCR PO SCH (08:27)
[2019-05-20] MEDS: CHOLECALCIFEROL 1,000 UNITS 25 MCG TAB PO SCH (08:27)
[2019-05-20] MEDS: CYANOCOBALAMIN 500 MCG TABLET (VITAMIN B-12) PO SCH (08:27)
[2019-05-20] MEDS: OMEGA-3 (PURIFIED FISH OIL) 1 GM CAP PO SCH (08:27)
[2019-05-20] MEDS: guaiFENesin 600 MG TABCR PO SCH ×2 (08:27→21:40)
[2019-05-20] MEDS: NIACIN EXTENDED REL 500 MG TABCR PO SCH ×2 (08:27→21:41)
[2019-05-20 08:41] LABS: Albumin Level 2.9 gm/dl (3.4-5.0); BUN Creatinine Ratio 13.6 (10-20); Calcium 9.5 mg/dl (8.5-10.1); Creatinine Clr Calc Pharmacy 28.3 ml/min; Est GFR (African American) 41.7; Potassium 4.2 mmol/L (3.5-5.1)
[2019-05-20 08:46] LABS: Albumin Globulin Ratio 0.7 (0.9-2); Bilirubin,Total 1.6 mg/dl (0.2-1); Globulin 4.1 gm/dl (2.5-4.0)
[2019-05-20] MEDS ORDERED: NON-FORMULARY MEDICATION (Cranberry Conc-Ascorbic Acid 1 CAP) PO SCH (09:00)
--- NOTE | 2019-05-20 12:44 | Electrocardiogram Report ---
Test Reason : Blood Pressure : / mmHG Vent. Rate : 120 BPM Atrial Rate : 119 BPM P-R Int : 000 ms QRS Dur : 076 ms QT Int : 266 ms P-R-T Axes : 000 078 033 degrees QTc Int : 375 ms Baseline artifact Normal sinus rhythm frequent PAC's Nonspecific T wave abnormality Abnormal ECG When compared with ECG of 31-DEC-2018 11:24, No significant change was found Confirmed by Enoc Kan ([id number]) on 05/20/2019 12:44:18 PM Referred By: REFERRED SELF Confirmed By:Enoc Kan
--- NOTE | 2019-05-20 12:57 | Electrocardiogram Report ---
Test Reason : Blood Pressure : / mmHG Vent. Rate : 113 BPM Atrial Rate : 113 BPM P-R Int : 176 ms QRS Dur : 070 ms QT Int : 316 ms P-R-T Axes : 000 084 064 degrees QTc Int : 433 ms Poor data quality, interpretation may be adversely affected Sinus tachycardia with PAC's Nonspecific ST abnormality Abnormal ECG When compared with ECG of 19-MAY-2019 19:09, (unconfirmed) Nonspecific T wave abnormality has improved Confirmed by Enoc Kan ([id number]) on 05/20/2019 12:57:44 PM Referred By: REFERRED SELF Confirmed By:Enoc Kan
--- NOTE | 2019-05-20 15:10 | Hospitalist Progress Note ---
Date of Service May 20, 2019 Assessment & Plan (1) Acute on chronic respiratory failure with hypoxia: 79 yo F extensive PMH including pulmonary fibrosis, COPD exacerbation, afib/flutter on warfarin, HTN, HLD, T2DM presents with 48 hour h/o progressive dyspnea, likely related to pneumonia in setting of chronic respiratory illness. Acute on chronic respiratory failure/COPD exacerbation/superimposed pneumonia on pulmonary fibrosis -Admit to monitored bed. -Zosyn 3.375 mg IV every 8 hours. -Levofloxacin 500 mg IV daily. -Xopenex/Atrovent-nebulizers every 6 hours. -Pulmicort Respules 0.5 mg inhaled twice daily. -Methylprednisolone 20 mg IV every 8 hours. -Continue heated high flow nasal cannula oxygen, taper to her baseline 3-3.5 liters nasal cannula O2 as symptoms improve. -Pt requiring hi-flow 40%, will consult pulmonology. Sees Dr. Cole as outpt. -Lactate of 6.1 on admission, repeat 4.8 -Hold home prednisone and Incruse Ellipta. Atrial fibrillation and flutter/hypertension -Continue diltiazem extended release 300 mg daily. -Continue warfarin at current dosing, INR therapeutic at 2.3, and check INR daily. Diabetes mellitus type 2, uncontrolled -Hold metformin. -Placed on Accu-Cheks before meals and at bedtime with NovoLog coverage per scale. -A1c pending Hyperlipidemia -Continue niacin, fish oil Code: Full per discussion. (Patient previously DNR but OK for intubation.) Clarified pt wishes on 05/20/19. DVTP: warfarin FEN/GI: carb consistent Dispo: med tele, cont to monitor. PT/OT when able. (2) Dyspnea: (3) Hypoxia: (4) COPD exacerbation: (5) Hyperlipidemia: (6) Anemia: (7) Respiratory failure: (8) Osteopenia: (9) Hypertension: (10) Anxiety: (11) Atrial fibrillation and flutter: (12) Diabetes mellitus type 2, uncontrolled: Admission and Anticipated Discharge Date Admission Date: May 19, 2019 Supervising Physician Co-Signing Physician Notes I saw the patient with the resident physician and confirmed mondragon portion of the history and physical examination. Upon examination, the patient is seated in bed eating her lunch. Several family members are bedside. The patient states she feels much better compared to yesterday and the overall consensus is a visiting family is that she looks better as well. Joyce has a history of severe COPD with an FEV1 reported to be about 30%, chron ic respiratory failure on home O2 at 4 L/min. She had been admitted in December 2018 for hypoxic hypercarbic respiratory failure requiring mechanical ventilation. In this admission, the patient and family note that she had a progressive increase in her baseline shortness of breath over the preceding 3 to 4 days. Blood pressure 126/72, heart rate 109, resp rate 20; pulse oximetry 94% (FiO2 40%) She is alert. Oriented. Lungs with decreased breath sounds throughout; pursed lip breathing. Cardiovascular regular but mildly tachycardic Blood blood cell count 20.96 upon admission, 16.48 today. Hemoglobin 10.6. INR is 2.4 Lactate 6.1 upon admission, 4.8 upon repeat Sodium 134, creatinine 1.39 Blood cultures are pending Chest x-ray consistent with severe emphysema and fibrotic changes Acute on chronic respiratory failure, COPD exacerbation Pneumonia in the setting of pulmonary fibrosis Additional diagnoses as noted above Continue Zosyn and Levaquin She has notably improved this morning, so may be able to convert steroids to oral tomorrow Consult pulmonology Subjective Joyce reports she feels better today compared to prior to admission. Asking if she can go home. Code status confirmed. Review of Systems Review of Systems: All systems reviewed & are unremarkable except as noted in HPI & below Constitutional: + fatigue and + weakness; no fever and no body aches Respiratory: + cough, + dyspnea, + dyspnea on exertion and + stopping breathing during sleep (reports sleep apnea, but doesn't like CPAP) Cardiovascular: + dyspnea, + dyspnea at rest and + dyspnea on exertion; no chest pain, no palpitations and no edema Gastrointestinal: no abdominal pain, no nausea, no vomiting and no change in stools Neurologic: + unsteadiness and + lack of coordination Physical Exam Constitutional: + ill appearing and average body habitus; no acute distress and no altered mental status Eyes: PERRL, conjunctivae normal, anicteric sclerae + anicteric sclerae Neck: normal visual inspection; no tracheal deviation Respiratory: + labored breathing, able to speak in complete sentences, + pursed lip breathing and symmetric chest movement; + abnormal respiratory e ffort, no respiratory distress and no audible wheezes Auscultation: + rales (diffusely) and + abnormal I/E ratio; no bronchial breath sounds Cardiovascular: Rate/Rhythm: regular rate and + tachycardic; + abnormal rhythm (irregularly irregular) Heart Sounds: no murmur Extremities: no edema Gastrointestinal (Abdomen): normal bowel sounds, soft, nontender, no hepatosplenomegaly Musculoskeletal: no cyanosis or clubbing, extremities motor strength 5/5 Skin: no rashes, warm and dry Neurologic: PERRL, EOMI, accommodation nl, no face palsy, no dysarthria Psychiatric: Orientation: alert and oriented x 3 Insight: + poor insight Results & Data ([facility]) Vital Signs (Past 12 Hours) Vital Signs Temp Pulse Pulse Pulse Resp BP BP 05/20/19 13:04 92 H 18 05/20/19 11:20 91 H 22 05/20/19 11:18 98.1 F 90 23 126/67 05/20/19 08:00 117 H 05/20/19 07:31 97.9 F 113 H 24 127/68 05/20/19 07:06 101 H 18 05/20/19 07:05 101 H 18 05/20/19 06:19 113 H 32 H 05/20/19 03:51 117 H 24 05/20/19 03:07 98.2 F 120 H 20 164/67 H Pulse Ox 05/20/19 13:04 92 05/20/19 11:20 95 05/20/19 11:18 95 05/20/19 08:00 05/20/19 07:31 94 05/20/19 07:06 93 05/20/19 07:05 93 05/20/19 06:19 93 05/20/19 03:51 95 05/20/19 03:07 93 Laboratory Results 05/20/19 05/20/19 05/20/19 Range/Units 11:16 08:13 08:11 WBC (4.8-10.8) K/uL RBC (4.2-5.4) M/uL Hgb (12.0-16.0) g/dL Hct (37-47) % MCV (80-100) fL MCH (25-34) pg MCHC (32-36) g/dL RDW Std Deviation (36.4-46.3) fL RDW Coeff of Nataly (11.5-14.5) % Plt Count (130-400) K/uL MPV (7.4-10.4) fL Immature Gran % (Auto) % Neut % (Auto) % Lymph % (Auto) % [place] % (Auto) % Eos % (Auto) % Baso % (Auto) % Immature Gran # (Auto) (0.00-0.02) K/uL Neut # (Auto) (1.4-6.5) K/uL Lymph # (Auto) (1.2-3.4) K/uL [place] # (Auto) (0.11-0.59) K/uL Eos # (Auto) (0-0.5) K/uL Baso # (Auto) (0-0.2) K/uL PT (9.0-12.0) Seconds INR (0.9-1.1) ABG pH (7.35-7.45) ABG pCO2 (35-46) mmHg ABG pO2 (80-95) mmHg ABG HCO3 (19-24) mmol/L ABG O2 Saturation (90-95) % ABG Base Excess (-9-1.8) mEq/L Marques Test (Pos) Barometric Pressure mm/Hg Oxygen Given Sodium 134 L (136-145) mmol/L Potassium 4.2 (3.5-5.1) mmol/L Chloride 91 L (98-107) mmol/L Carbon Dioxide 33 H (21-32) mmol/L Anion Gap 9.0 (3-11) BUN 19 H (7-18) mg/dl Creatinine 1.39 H (0.6-1.2) mg/dl Est Cr Clr Drug Dosing 28.3 Est GFR ( Amer) 41.7 Est GFR (Non-Af Amer) 36.0 BUN/Creatinine Ratio 13.6 (10-20) Glucose 249 H (70-99) mg/dl POC Glucose 241 H (70-99) mg/dl Estimat Average Glucose Hemoglobin A1c Lactate 4.8 H* (0.4-2.0) mmol/L Calcium 9.5 (8.5-10.1) mg/dl Magnesium (1.8-2.4) mg/dl Total Bilirubin 1.6 H D (0.2-1) mg/dl AST 17 (15-37) U/L ALT 34 (12-78) U/L Alkaline Phosphatase 112 (45-117) U/L Troponin I (0-0.045) ng/ml NT-Pro-B Natriuret Pep (0-1800) pg/ml Total Protein 7.0 (6.4-8.2) gm/dl Albumin 2.9 L (3.4-5.0) gm/dl Globulin 4.1 H (2.5-4.0) gm/dl Albumin/Globulin Ratio 0.7 L (0.9-2) Procalcitonin (0-0.5) ng/ml 05/20/19 05/20/19 05/20/19 Range/Units 08:11 07:31 05:30 WBC 16.48 H (4.8-10.8) K/uL RBC 3.56 L (4.2-5.4) M/uL Hgb 10.6 L (12.0-16.0) g/dL Hct 34.0 L (37-47) % MCV 95.5 (80-100) fL MCH 29.8 (25-34) pg MCHC 31.2 L (32-36) g/dL RDW Std Deviation 48.5 H (36.4-46.3) fL RDW Coeff of Nataly 14.0 (11.5-14.5) % Plt Count 277 (130-400) K/uL MPV 9.3 (7.4-10.4) fL Immature Gran % (Auto) 0.2 % Neut % (Auto) 88.3 % Lymph % (Auto) 7.0 % [place] % (Auto) 4.4 % Eos % (Auto) 0.0 % Baso % (Auto) 0.1 % Immature Gran # (Auto) 0.04 H (0.00-0.02) K/uL Neut # (Auto) 14.55 H (1.4-6.5) K/uL Lymph # (Auto) 1.15 L (1.2-3.4) K/uL [place] # (Auto) 0.73 H (0.11-0.59) K/uL Eos # (Auto) 0.00 (0-0.5) K/uL Baso # (Auto) 0.01 (0-0.2) K/uL PT 22.8 H (9.0-12.0) Seconds INR 2.4 H (0.9-1.1) ABG pH (7.35-7.45) ABG pCO2 (35-46) mmHg ABG pO2 (80-95) mmHg ABG HCO3 (19-24) mmol/L ABG O2 Saturation (90-95) % ABG Base Excess (-9-1.8) mEq/L Marques Test (Pos) Barometric Pressure mm/Hg Oxygen Given Sodium (136-145) mmol/L Potassium (3.5-5.1) mmol/L Chloride (98-107) mmol/L Carbon Dioxide (21-32) mmol/L Anion Gap (3-11) BUN (7-18) mg/dl Creatinine (0.6-1.2) mg/dl Est Cr Clr Drug Dosing Est GFR ( Amer) Est GFR (Non-Af Amer) BUN/Creatinine Ratio (10-20) Glucose (70-99) mg/dl POC Glucose 215 H (70-99) mg/dl Estimat Average Glucose Hemoglobin A1c Lactate (0.4-2.0) mmol/L Calcium (8.5-10.1) mg/dl Magnesium (1.8-2.4) mg/dl Total Bilirubin (0.2-1) mg/dl AST (15-37) U/L ALT (12-78) U/L Alkaline Phosphatase (45-117) U/L Troponin I (0-0.045) ng/ml NT-Pro-B Natriuret Pep (0-1800) pg/ml Total Protein (6.4-8.2) gm/dl Albumin (3.4-5.0) gm/dl Globulin (2.5-4.0) gm/dl Albumin/Globulin Ratio (0.9-2) Procalcitonin (0-0.5) ng/ml 05/20/19 05/20/19 05/19/19 Range/Units 05:30 02:24 21:04 WBC (4.8-10.8) K/uL RBC (4.2-5.4) M/uL Hgb (12.0-16.0) g/dL Hct (37-47) % MCV (80-100) fL MCH (25-34) pg MCHC (32-36) g/dL RDW Std Deviation (36.4-46.3) fL RDW Coeff of Nataly (11.5-14.5) % Plt Count (130-400) K/uL MPV (7.4-10.4) fL Immature Gran % (Auto) % Neut % (Auto) % Lymph % (Auto) % [place] % (Auto) % Eos % (Auto) % Baso % (Auto) % Immature Gran # (Auto) (0.00-0.02) K/uL Neut # (Auto) (1.4-6.5) K/uL Lymph # (Auto) (1.2-3.4) K/uL [place] # (Auto) (0.11-0.59) K/uL Eos # (Auto) (0-0.5) K/uL Baso # (Auto) (0-0.2) K/uL PT (9.0-12.0) Seconds INR (0.9-1.1) ABG pH (7.35-7.45) ABG pCO2 (35-46) mmHg ABG pO2 (80-95) mmHg ABG HCO3 (19-24) mmol/L ABG O2 Saturation (90-95) % ABG Base Excess (-9-1.8) mEq/L Marques Test (Pos) Barometric Pressure mm/Hg Oxygen Given Sodium (136-145) mmol/L Potassium (3.5-5.1) mmol/L Chloride (98-107) mmol/L Carbon Dioxide (21-32) mmol/L Anion Gap (3-11) BUN (7-18) mg/dl Creatinine (0.6-1.2) mg/dl Est Cr Clr Drug Dosing Est GFR ( Amer) Est GFR (Non-Af Amer) BUN/Creatinine Ratio (10-20) Glucose (70-99) mg/dl POC Glucose 254 H (70-99) mg/dl Estimat Average Glucose Pending Hemoglobin A1c Pending Lactate 6.1 H* (0.4-2.0) mmol/L Calcium (8.5-10.1) mg/dl Magnesium (1.8-2.4) mg/dl Total Bilirubin (0.2-1) mg/dl AST (15-37) U/L ALT (12-78) U/L Alkaline Phosphatase (45-117) U/L Troponin I (0-0.045) ng/ml NT-Pro-B Natriuret Pep (0-1800) pg/ml Total Protein (6.4-8.2) gm/dl Albumin (3.4-5.0) gm/dl Globulin (2.5-4.0) gm/dl Albumin/Globulin Ratio (0.9-2) Procalcitonin (0-0.5) ng/ml 05/19/19 05/19/19 05/19/19 Range/Units 19:34 19:23 19:23 WBC 20.96 H (4.8-10.8) K/uL RBC 3.62 L (4.2-5.4) M/uL Hgb 11.0 L (12.0-16.0) g/dL Hct 35.3 L (37-47) % MCV 97.5 (80-100) fL MCH 30.4 (25-34) pg MCHC 31.2 L (32-36) g/dL RDW Std Deviation 51.2 H (36.4-46.3) fL RDW Coeff of Nataly 14.3 (11.5-14.5) % Plt Count 338 (130-400) K/uL MPV 9.1 (7.4-10.4) fL Immature Gran % (Auto) 0.3 % Neut % (Auto) 87.9 % Lymph % (Auto) 6.6 % [place] % (Auto) 5.0 % Eos % (Auto) 0.1 % Baso % (Auto) 0.1 % Immature Gran # (Auto) 0.06 H (0.00-0.02) K/uL Neut # (Auto) 18.42 H (1.4-6.5) K/uL Lymph # (Auto) 1.39 (1.2-3.4) K/uL [place] # (Auto) 1.04 H (0.11-0.59) K/uL Eos # (Auto) 0.03 (0-0.5) K/uL Baso # (Auto) 0.02 (0-0.2) K/uL PT (9.0-12.0) Seconds INR (0.9-1.1) ABG pH 7.41 (7.35-7.45) ABG pCO2 49 H (35-46) mmHg ABG pO2 70 L (80-95) mmHg ABG HCO3 30 H (19-24) mmol/L ABG O2 Saturation 94.1 (90-95) % ABG Base Excess 4.7 H (-9-1.8) mEq/L Marques Test POS (Pos) Barometric Pressure 733.1 mm/Hg Oxygen Given FIO2 50% Sodium 138 (136-145) mmol/L Potassium 4.1 (3.5-5.1) mmol/L Chloride 94 L (98-107) mmol/L Carbon Dioxide 32 (21-32) mmol/L Anion Gap 12.0 H (3-11) BUN 16 (7-18) mg/dl Creatinine 1.23 H (0.6-1.2) mg/dl Est Cr Clr Drug Dosing Not Reportable Est GFR ( Amer) 48.3 Est GFR (Non-Af Amer) 41.7 BUN/Creatinine Ratio 12.8 (10-20) Glucose 253 H (70-99) mg/dl POC Glucose (70-99) mg/dl Estimat Average Glucose Hemoglobin A1c Lactate (0.4-2.0) mmol/L Calcium 9.2 (8.5-10.1) mg/dl Magnesium 1.4 L (1.8-2.4) mg/dl Total Bilirubin 1.0 (0.2-1) mg/dl AST 34 (15-37) U/L ALT 49 (12-78) U/L Alkaline Phosphatase 139 H (45-117) U/L Troponin I < 0.015 (0-0.045) ng/ml NT-Pro-B Natriuret Pep 1005 (0-1800) pg/ml Total Protein 7.4 (6.4-8.2) gm/dl Albumin 3.4 (3.4-5.0) gm/dl Globulin 4.0 (2.5-4.0) gm/dl Albumin/Globulin Ratio 0.9 (0.9-2) Procalcitonin (0-0.5) ng/ml 05/19/19 05/19/19 Range/Units 19:20 19:20 WBC (4.8-10.8) K/uL RBC (4.2-5.4) M/uL Hgb (12.0-16.0) g/dL Hct (37-47) % MCV (80-100) fL MCH (25-34) pg MCHC (32-36) g/dL RDW Std Deviation (36.4-46.3) fL RDW Coeff of Nataly (11.5-14.5) % Plt Count (130-400) K/uL MPV (7.4-10.4) fL Immature Gran % (Auto) % Neut % (Auto) % Lymph % (Auto) % [place] % (Auto) % Eos % (Auto) % Baso % (Auto) % Immature Gran # (Auto) (0.00-0.02) K/uL Neut # (Auto) (1.4-6.5) K/uL Lymph # (Auto) (1.2-3.4) K/uL [place] # (Auto) (0.11-0.59) K/uL Eos # (Auto) (0-0.5) K/uL Baso # (Auto) (0-0.2) K/uL PT 22.1 H (9.0-12.0) Seconds INR 2.3 H (0.9-1.1) ABG pH (7.35-7.45) ABG pCO2 (35-46) mmHg ABG pO2 (80-95) mmHg ABG HCO3 (19-24) mmol/L ABG O2 Saturation (90-95) % ABG Base Excess (-9-1.8) mEq/L Marques Test (Pos) Barometric Pressure mm/Hg Oxygen Given Sodium (136-145) mmol/L Potassium (3.5-5.1) mmol/L Chloride (98-107) mmol/L Carbon Dioxide (21-32) mmol/L Anion Gap (3-11) BUN (7-18) mg/dl Creatinine (0.6-1.2) mg/dl Est Cr Clr Drug Dosing Est GFR ( Amer) Est GFR (Non-Af Amer) BUN/Creatinine Ratio (10-20) Glucose (70-99) mg/dl POC Glucose (70-99) mg/dl Estimat Average Glucose Hemoglobin A1c Lactate (0.4-2.0) mmol/L Calcium (8.5-10.1) mg/dl Magnesium (1.8-2.4) mg/dl Total Bilirubin (0.2-1) mg/dl AST (15-37) U/L ALT (12-78) U/L Alkaline Phosphatase (45-117) U/L Troponin I (0-0.045) ng/ml NT-Pro-B Natriuret Pep (0-1800) pg/ml Total Protein (6.4-8.2) gm/dl Albumin (3.4-5.0) gm/dl Globulin (2.5-4.0) gm/dl Albumin/Globulin Ratio (0.9-2) Procalcitonin 0.65 H (0-0.5) ng/ml Medications Administered Current Inpatient Medications Acetaminophen (Tylenol) 650 mg PO Q4H PRN PRN Reason: Pain or Fever Stop: 06/19/19 00:14 Al Hydrox/Mg Hydrox/Simethicone (Maalox) 15 ml PO Q4H PRN PRN Reason: Dyspepsia Stop: 06/19/19 00:14 Budesonide (Pulmicort Respules) 0.5 mg NEB BIDR [facility] Stop: 06/19/19 06:59 Last Admin: 05/20/19 07:05 Dose: 0.5 mg Documented by: Cyanocobalamin (Vitamin B-12) 1,000 mcg PO DAILY [facility] Stop: 06/19/19 08:59 Last Admin: 05/20/19 08:27 Dose: 1,000 mcg Documented by: Dextrose (Dextrose 50%) 25 - 50 ml IV UD PRN; Protocol PRN Reason: Hypoglycemia Protocol Stop: 06/19/19 00:14 Diltiazem HCl (Cardizem Cd) 300 mg PO QAM [facility] Stop: 06/19/19 08:59 Last Admin: 05/20/19 08:27 Dose: 300 mg Documented by: Fish Oil ([place]-3 (Purified Fish Oil)) 1 gm PO QAM [facility] Stop: 06/19/19 08:59 Last Admin: 05/20/19 08:27 Dose: 1 gm Documented by: Glucagon (Glucagen) 1 mg SQ UD PRN; Protocol PRN Reason: Hypoglycemia Protocol Stop: 06/19/19 00:14 Glucose (Dex4 Glucose) 4 - 8 tabs PO UD PRN; Protocol PRN Reason: Hypoglycemia Protocol Stop: 06/19/19 00:14 Glucose (Glucose 40%) 15 - 30 gm PO UD PRN; Protocol PRN Reason: Hypoglycemia Protocol Stop: 06/19/19 00:14 Guaifenesin (Mucinex) 600 mg PO Q12 KEV Stop: 06/19/19 08:59 Last Admin: 05/20/19 08:27 Dose: 600 mg Documented by: Methylprednisolone 20 mg/ (Syringe) 0.32 mls @ 1.5 mls/min IV Q8H KEV Stop: 06/19/19 00:00 Last Admin: 05/20/19 08:24 Dose: 1.5 mls/min Documented by: Piperacillin Sod/Tazobactam (Sod 3.375 gm/ Dextrose) 115 mls @ 28.75 mls/hr IV Q8H [facility]; Protocol Stop: 05/27/19 05:59 Last Admin: 05/20/19 14:17 Dose: 28.8 mls/hr Documented by: Levofloxacin/Dextrose (Levaquin/D5w) 750 mg in 150 mls @ 100 mls/hr IV Q48H [facility]; Protocol Stop: 05/26/19 19:59 Insulin Aspart (Novolog Flexpen) 0 units SC ACHS [facility] Stop: 06/19/19 07:29 Last Admin: 05/20/19 11:43 Dose: 5 units Documented by: Ipratropium [place] (Atrovent 0.02% 0.5mg/2.5ml) 0.5 mg INH Q6R [facility] Stop: 06/19/19 00:59 Last Admin: 05/20/19 13:03 Dose: 0.5 mg Documented by: Levalbuterol HCl (Xopenex 1.25mg/0.5ml Neb) 1.25 mg INH Q6R [facility] Stop: 06/19/19 00:59 Last Admin: 05/20/19 13:03 Dose: 1.25 mg Documented by: Magnesium Hydroxide (Milk Of Magnesia) 30 ml PO Q12H PRN PRN Reason: Constipation Stop: 06/19/19 00:14 Miscellaneous (Carbohydrates For Hypoglycemia) 15 - 30 gm PO UD PRN PRN Reason: Hypoglycemia Protocol Stop: 06/19/19 00:14 Miscellaneous Information (Consult) 1 ea N/A UD PRN PRN Reason: Consult Stop: 06/19/19 00:14 Niacin (Niaspan Extended Rel) 500 mg PO BID [facility] Stop: 06/19/19 08:59 Last Admin: 05/20/19 08:27 Dose: 500 mg Documented by: Ondansetron HCl (Zofran) 4 mg IV Q6H PRN PRN Reason: Nausea Stop: 06/19/19 00:14 Polyethylene Glycol (Miralax Powder Packet) 17 gm PO DAILY PRN PRN Reason: Constipation Stop: 06/19/19 00:14 Vitamin D (Vitamin D3) 1,000 units PO QAM [facility] Stop: 06/19/19 08:59 Last Admin: 05/20/19 08:27 Dose: 1,000 units Documented by: Warfarin Sodium (Coumadin) 2 mg PO [email or web address] [facility] Stop: 06/20/19 15:59 Resident Activity Tracking Resident Involvement: Resident Care Provided Care Provided: Adult Hospital Medicine (1) Dyspnea Dyspnea type: unspecified Qualified Code(s): R06.00 - Dyspnea, unspecified
[2019-05-21] MEDS: IPRATROPIUM BROMIDE NEB SOLN 0.02% 2.5 ML VIAL INH SCH ×2 (01:09→07:05)
[2019-05-21] MEDS: LEVALBUTEROL 1.25MG/0.5ML NEB INH SCH ×4 (01:09→19:09)
[2019-05-21] MEDS: methylPREDNISolone 20 MG in SYRINGE 0 ML IV SCH ×3 (01:37→16:59)
[2019-05-21 06:00] LABS: Estimated Average Glucose 137 mg/dl; Hemoglobin A1C 6.4 % (4.5-5.6)
[2019-05-21] MEDS: PIPERACILLIN/TAZOBACTAM 3.375 GM in DEXTROSE 5% 100 ML IV SCH ×3 (06:00→21:35)
[2019-05-21] MEDS: BUDESONIDE 0.5 MG/2 ML VIAL (PULMICORT) NEB SCH ×2 (07:04→19:09)
--- NOTE | 2019-05-21 07:38 | Hospitalist Progress Note ---
Date of Service May 21, 2019 Assessment & Plan (1) Acute on chronic respiratory failure with hypoxia: Acute on chronic respiratory failure/COPD exacerbation/superimposed pneumonia on pulmonary fibrosis- Admit to monitored bed. Zosyn 3.375 mg IV every 8 hours. Levofloxacin 500 mg IV daily. Xopenex/Atrovent-nebulizers every 6 hours. Pulmicort Respules 0.5 mg inhaled twice daily. Methylprednisolone 20 mg IV every 8 hours. Continue heated high flow nasal cannula oxygen, taper to her baseline 3-3.5 liters nasal cannula O2 as symptoms improve Hold prednisone and Incruse Ellipta. (2) Dyspnea: (3) Hypoxia: (4) COPD exacerbation: See above (5) Hyperlipidemia: Continue niacin, and fish oil (6) Anemia: (7) Respiratory failure: (8) Osteopenia: (9) Hypertension: See above (10) Anxiety: (11) Atrial fibrillation and flutter: Atrial fibrillation and flutter/hypertension- Continue diltiazem extended release 300 mg daily. Continue warfarin at current dosing, INR therapeutic at 2.3, and check INR daily. (12) Diabetes mellitus type 2, uncontrolled: Hold metformin. Placed on Accu-Cheks before meals and at bedtime with NovoLog coverage per scale. Admission and Anticipated Discharge Date Admission Date: May 19, 2019 Supervising Physician Co-Signing Physician Notes I saw the patient with the resident physician and confirmed mondragon portion of the history and physical examination. Her was at bedside. Patient reports she is getting close to her baseline. No wheezing heard on examination. Joyce has a history of severe COPD with an FEV1 reported to be about 30%, chronic respiratory failure on home O2 at 4 L/min. Currently she is on 4 liters nasal cannula. She had been admitted in December 2018 for hypoxic hypercarbic respiratory failure requiring mechanical ventilation. In this admission, the patient and family note that she had a progressive increase in her baseline shortness of breath over the preceding 3 to 4 days. Vitals appear stable and as stated above: she is saturating fine on her regular home oxygen requirements. She is alert. Oriented. Lungs with decreased breath sounds throughout; Cardiovascular regular but mildly tachycardic Blood blood cell count 20.96 upon admission, 16.48 today. Hemoglobin 10.6. INR is 2.4 Lactate 6.1 upon admission, 4.8 upon repeat, lactic acid improved to 2.3, but then increased to 5 likely lactic acidosis type B, short acting agonists may sometimes elevate lactic acid. Malignancy may also play a role. Will recheck in the AM. Will limit neb treatment inhaler to PRN. Chest x-ray consistent with severe emphysema and fibrotic changes Acute on chronic respiratory failure, COPD exacerbation Pneumonia in the setting of pulmonary fibrosis Additional diagnoses as noted above Continue Zosyn and Levaquin And steroids. Consult pulmonology Subjective Joyce notes that her breathing feels improved today. No other acute complaints noted. No overnight events reported. Review of Systems Review of Systems: All systems reviewed & are unremarkable except as noted in HPI & below Physical Exam Constitutional: WD/WN, vitals as above cooperative and comfortable Eyes: PERRL, conjunctivae normal, anicteric sclerae ENMT: external ear and nose normal, oropharynx normal Neck: normal visual inspection and trachea midline Respiratory: normal respiratory effort; no respiratory distress bilateral inspiratory and expiratory at posterior bases with diminished air movement; improved air movement and improved lung sounds superior and mid lung posteriorly with expiratory wheeze heard on left posterior med lung Cardiovascular: Rate/Rhythm: regular rate and + irregularly irregular Gastrointestinal (Abdomen): Percussion/Palpation: abdomen soft; abdomen nontender Musculoskeletal: Head/Neck/Chest: normocephalic and head atraumatic Skin: no rashes, warm and dry Neurologic: moves all extremities and awake Psychiatric: A+Ox3, euthymic affect Results & Data ([facility]) Vital Signs (Past 12 Hours) Vital Signs Temp Pulse Pulse Resp BP Pulse Ox 05/21/19 07:24 36.6 C 102 H 22 117/66 97 05/21/19 07:05 95 H 20 92 05/21/19 02:38 36.5 C 100 H 19 155/70 H 94 05/21/19 01:10 98 H 20 95 05/21/19 00:02 89 05/20/19 23:26 36.3 C L 100 H 19 149/72 H 94 Resident Activity Tracking Resident Involvement: Resident Care Provided Care Provided: Adult Hospital Medicine (1) Dyspnea Dyspnea type: unspecified Qualified Code(s): R06.00 - Dyspnea, unspecified
[2019-05-21 07:44] LABS: Prothrombin Time 19.6 Seconds (9.0-12.0)
[2019-05-21 07:49] LABS: Basophils # (auto) 0.01 K/uL (0-0.2); Basophils % (auto) 0.1 %; Hematocrit (blood only) 31.7 % (37-47); Hemoglobin 10.1 g/dL (12.0-16.0); Immature Granulocytes # (auto) 0.04 K/uL (0.00-0.02); Immature Granulocytes % (auto) 0.3 %; Lymphocytes % (auto) 3.2 %; Mean Corpuscular Hemoglobin 30.1 pg (25-34); Mean Corpuscular Hgb Conc 31.9 g/dL (32-36); Mean Corpuscular Volume 94.6 fL (80-100); Mean Platelet Volume 9.4 fL (7.4-10.4); Monocytes # (auto) 0.46 K/uL (0.11-0.59); Neutrophils # (auto) 14.53 K/uL (1.4-6.5); Neutrophils % (auto) 93.4 %; Platelet Count 276 K/uL (130-400); RDW Coefficient of Variation 14.4 % (11.5-14.5); RDW Standard Deviation 49.5 fL (36.4-46.3); Red Blood Count 3.35 M/uL (4.2-5.4); White Blood Count 15.54 K/uL (4.8-10.8)
[2019-05-21 07:52] LABS: BUN Creatinine Ratio 19.7 (10-20); Calcium 9.3 mg/dl (8.5-10.1); Creatinine Clr Calc Pharmacy 27.4 ml/min; Est GFR (African American) 39.9; Est GFR (Non-African American) 34.5; Potassium 3.9 mmol/L (3.5-5.1)
[2019-05-21] MEDS: OMEGA-3 (PURIFIED FISH OIL) 1 GM CAP PO SCH (08:38)
[2019-05-21] MEDS: INSULIN ASPART 100 UNITS/ML 3 ML PEN SC SCH ×4 (08:38→21:04)
[2019-05-21] MEDS: CHOLECALCIFEROL 1,000 UNITS 25 MCG TAB PO SCH (08:38)
[2019-05-21] MEDS: guaiFENesin 600 MG TABCR PO SCH ×2 (08:41→20:07)
[2019-05-21] MEDS: NIACIN EXTENDED REL 500 MG TABCR PO SCH ×2 (08:41→20:07)
[2019-05-21] MEDS: dilTIAZem HCL 300 MG CAPCR PO SCH (08:41)
[2019-05-21] MEDS: CYANOCOBALAMIN 500 MCG TABLET (VITAMIN B-12) PO SCH (08:41)
--- NOTE | 2019-05-21 08:50 | CT Scan Report ---
CT chest wo con CLINICAL HISTORY: 79 years-old Female presenting with shortness of breath, concern for pneumonia/pneu monitis, edema or atelectasis on chest x-ray, chest CT for further evaluation. TECHNIQUE: Multidetector CT imaging of the chest was performed without the use of intravenous contras t. IV contrast: None. One or more dose lowering techniques were used consistent with the principles o f ALARA (as low as reasonably achievable), including automatic exposure control, mA or kV adjustment to individual patient size, and/or use of iterative reconstruction. COMPARISON: CTA chest from 12/27/2018. CT DOSE (mGy.cm): The estimated cumulative dose is 215.86 mGycm. FINDINGS: [employer] topogram: Left basilar abnormality. Soft tissues: Underlying small nodules may be present in the thyroid. No axillary, supraclavicular, o r mediastinal lymphadenopathy. Evaluation of the jake limited without intravenous contrast. Atheroscl erosis of the aorta. Normal heart size. Coronary artery and aortic valve calcification. Leftward medi astinal shift as on prior exam. Trace left pleural effusion. Calcified pleural plaque evident on the right with trace pleural thickening or pleural fluid, chronic. Nodular morphology of the liver sugges ts underlying fibrosis. Lungs and airways: No pneumothorax. Bronchiectasis in the left lung as on prior exam. Significant int erval decrease in the peribronchovascular consolidation in the left lung. Chronic basilar predominant atelectatic changes in the left lung remain present. Underlying centrilobular emphysema is evident. Interval resolution of the prior nodular infiltrate in the right upper lung. Pulmonary arteries mildl y enlarged relative to adjacent bronchi. No interlobular septal thickening. There is a prominent basi lar component of the emphysematous changes. Bandlike opacity in the paramediastinal right lung base l ikely relates to cicatrizing atelectasis with an associated overlying calcified pleural plaque. Mild patchy groundglass opacities in the right lower lobe (for example series 4 image 176). These are new from prior allowing for overall diminished right lung infiltrates in comparison to prior. Solid perip heral 3 mm nodule in the anterior right upper lobe (series 4 image 133). Stable appearance of perifis sural bandlike consolidation in the right middle lobe likely atelectasis. Musculoskeletal: Degenerative changes of the spine. IMPRESSION: 1. Severe emphysema. Basilar predominant morphology could suggest underlying alpha-1 antitrypsin def iciency or primary ciliary dyskinesia. 2. Significant interval decrease in peribronchovascular consolidation throughout the left lung. Stab le background bronchiectasis and left basilar cicatrizing atelectasis. 3. Resolution of prior nodular infiltrates in the right lung. 4. Mild patchy groundglass infiltrates in the right lower lobe new from prior, possibly developing p neumonia or mild pneumonitis. 5. Solid 3 mm right upper lobe nodules stable from prior. No new nodule. 6. Evidence of prior asbestos exposure with chronic pleural disease. 7. Possible liver fibrosis. ACT 112: Negative or not required by law. Electronically signed by: Fam Stauffer M.D. 05/21/2019 8:48 AM
[2019-05-21] MEDS ORDERED: TIOTROPIUM BROMIDE 5 PUFF/90 MCG INH INH SCH (10:00)
[2019-05-21] MEDS ORDERED: INSULIN GLARGINE SOLOSTAR 100 UNITS/ML 3 ML PEN SC ONE (10:30)
--- NOTE | 2019-05-21 11:07 | Electrocardiogram Report ---
Test Reason : Blood Pressure : / mmHG Vent. Rate : 094 BPM Atrial Rate : 000 BPM P-R Int : 000 ms QRS Dur : 064 ms QT Int : 350 ms P-R-T Axes : 000 069 070 degrees QTc Int : 437 ms Normal sinus rhythm with frequent Premature atrial complexes Nonspecific T wave abnormality Abnormal ECG When compared with ECG of 20-MAY-2019 06:46, ST no longer depressed in Lateral leads Confirmed by Juma Merritt ([id number]) on 05/21/2019 11:07:00 AM Referred By: REFERRED SELF Confirmed By:Juma Merritt
[2019-05-21] MEDS: UMECLIDINIUM BROMIDE 62.5MCG/BLISTER 7 PUFFS/INHALER INH SCH (12:46)
--- NOTE | 2019-05-21 13:55 | Emergency Department Note ---
Entered by Britta Rolle acting as a scribe for Maida Siddiqi DO History of Present Illness General Chief complaint: Shortness of Breath/Dyspnea Stated complaint: HYPOXIA Time Seen by Provider: 05/19/19 19:02 Source: patient and family History of Present Illness Onset (ago): day(s) 1 Location: chest Severity: similar to prior episodes Pain Consistency: + constant Associated symptoms: + denies other symptoms (abnormal sputum, diarrhea), + cough (junky) and + shortness of breath; no chest pain, no fever/chills and no nausea/vomiting Treatments prior to arrival: other (nebulizer (no relief)) The patient is a 79 year old female with a history of COPD, chronic left lung issue, and former smoker who presents to the Emergency Room with complaints of shortness of breath/dyspnea. The patient states that she began to experience SOB 1 day ago which worsened since onset. She admits that this episode of SOB is similar to previous episodes in the past and she has been admitted to the hospital before for the same. The patient's last inpatient admission for SOB was 2 months ago and she had a 2 week hospital stay at this time. Family thinks she was admitted for pneumonia. The patient also reports experiencing a recent junky cough (no abnormal sputum). She admits to sickness exposure this past weekend. The patient did receive her flu shot this year. Of note, the patient wears 4L of O2 constantly at home. In addition to this she relies on breathing treatments including a nebulizer and CPAP use at night. Family reports that her O2 sats have been fluctuating between 85-92% (baseline is 89-92%). The patient denies chest pain, fever, nausea, vomiting, and diarrhea. Home Medications Home Medications Medication Instructions Recorded Confirmed Type Incruse Ellipta 1 inh INHALATION DAILY 08/21/18 05/19/19 History cholecalciferol (vitamin D3) 1,000 unit PO QAM 08/21/18 05/19/19 History [Vitamin D3] prednisone 10 mg tablet 10 mg PO DAILY #90 tab 09/04/18 05/19/19 Rx diltiazem HCl 300 mg 300 mg PO QAM #90 cap 11/16/18 05/19/19 Rx capsule,extended release 24 hr niacin 500 mg tablet,extended 500 mg PO BID #180 tab 01/02/19 05/19/19 Rx release 24 hr warfarin 1 mg tablet 2 mg PO [id number] tab 05/16/19 05/19/19 History cranberry conc-ascorbic acid 1 cap PO QAM 05/19/19 05/19/19 History cyanocobalamin (vitamin B-12) 0 mcg PO DAILY 05/19/19 05/19/19 History metformin 500 mg PO BID 05/19/19 05/19/19 History [id number] oil [Ringling-3 1 cap PO QAM 05/19/19 05/19/19 History Fish Oil] Allergies Allergy/AdvReac Type Severity Reaction Status Date / Time Amwcebi-Kbi-Rch Reductase Allergy Unknown Verified 05/19/19 20:37 Inhibitor Past Med/Surg History Medical History Acute and chronic respiratory failure with hypercapnia (Resolved) Anemia (Resolved) Chronic obstructive pulmonary disease (Resolved) Chronic respiratory failure with hypoxia and hypercapnia (Resolved) COPD exacerbation (Resolved) Falls frequently (Resolved) Fatty liver (Resolved) Heart murmur HTN (hypertension) (Resolved) Hyperlipidemia Hypoxia (Resolved) Impaired fasting glucose (Resolved) Influenza vaccine needed (Resolved) Insomnia (Resolved) Internal hemorrhoids (Resolved) Osteopenia (Resolved) Other specified disorders of bone density and structure, other site (Resolved) Pleural effusion on left (Resolved) PNA (pneumonia) (Resolved 06/20/13) Pneumonia (Resolved) Respiratory distress (Resolved 06/20/13) Respiratory failure (Resolved) Sepsis (Resolved) Shortness of breath (Resolved) Tubular adenoma of colon (Resolved) Type 2 diabetes mellitus (Resolved) Surgical History H/O colonoscopy Family History Father Myocardial infarction Sister Aneurysm of abdominal aorta Cerebral aneurysm Emphysema lung Mother Emphysema lung Tobacco abuse Son Diabetes Denies family history of Breast cancer Colorectal cancer Social History Preferred Language: Maori Communication Ability: Effective Hearing Ability: Normal 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 and A total of 10 systems reviewed and were otherwise negative Physical Exam Vital Signs Vital Signs - 24 hr 05/19/19 18:57 05/19/19 19:14 05/19/19 19:31 Temperature 37.2 C Temperature Source Oral Pulse Rate 127 H Pulse Rate [Right Radial] 127 H Pulse Rhythm [Right Radial] Pulse Strength [Right Radial] Respiratory Rate 28 H 30 H Respiratory Effort / Characteristics Non-Labored Spontaneous Short of Breath SOB on Exertion Spontaneous Short of Breath Respiratory Depth Normal Respiratory Pattern Regular Rapid/Shallow Tachypnea Blood Pressure 126/70 Blood Pressure [Left Arm] Blood Pressure Mean 88 Blood Pressure Mean [Left Arm] Blood Pressure Position Sitting Blood Pressure Position [Left Arm] Pulse Oximetry 77 L 85 L 93 Oxygen Delivery Method Nasal Cannula Nasal Cannula Oxymask High Flow Nasal Cannula Oxygen Flow Rate 4 4 40 Fraction of Inspired Oxygen 50 SaO2/FiO2 Ratio Sepsis Recent Fever Within 48 Hours No Sepsis Action Taken by Nursing No Action Required Oxygen Flow Rate - Titration 5 Pulse Oximetry Post Tiitration 90 05/19/19 19:32 05/19/19 20:45 05/19/19 21:45 Temperature Temperature Source Pulse Rate Pulse Rate [Right Radial] 119 H 116 H 116 H Pulse Rhythm [Right Radial] Regular Pulse Strength [Right Radial] Normal Respiratory Rate 28 H 32 H 30 H Respiratory Effort / Characteristics Spontaneous Short of Breath Spontaneous Accessory Muscle Use Short of Breath SOB on Exertion Spontaneous Respiratory Depth Shallow Respiratory Pattern Tachypnea Blood Pressure Blood Pressure [Left Arm] 158/88 H Blood Pressure Mean Blood Pressure Mean [Left Arm] 111 Blood Pressure Position Blood Pressure Position [Left Arm] Sitting Pulse Oximetry 93 90 90 Oxygen Delivery Method High Flow Nasal Cannula High Flow Nasal Cannula High Flow Nasal Cannula Oxygen Flow Rate 40 40 40 Fraction of Inspired Oxygen 50 50 50 SaO2/FiO2 Ratio 180 Sepsis Recent Fever Within 48 Hours Sepsis Action Taken by Nursing Oxygen Flow Rate - Titration Pulse Oximetry Post Tiitration GENERAL: alert, uncomfortable appearing, well nourished, moderate distress, non- toxic, pursed lip breathing EYE EXAM: normal conjunctiva, PERRL and EOM's grossly intact OROPHARYNX: no exudate, no erythema, lips, buccal mucosa, and tongue normal and mucous membranes are moist NECK: supple, no nuchal rigidity, no adenopathy, non-tender LUNGS: Decreased breath sounds. Slight rales at left base. Increased work of breathing. Tachypnea. Normal chest wall mechanics HEART: no murmurs, S1 normal and S2 normal ABDOMEN: abdomen soft, non-tender, normo-active bowel sounds, no masses, no rebound or guarding. BACK: Back is symmetrical on inspection and there is no deformity, no midline tenderness, no CVA tenderness. SKIN: no rashes and no bruising UPPER EXTREMITIES: upper extremities are grossly normal. FROM, nml pulses b/l. LOWER EXTREMITIES: No pitting edema. FROM, nml pulses b/l. NEURO EXAM: Normal sensorium, cranial nerves II-XII grossly intact, normal speech, no gross weakness of arms, no gross weakness of legs. Course Course 1902: Past medical records reviewed. The patient was evaluated in room C02B. A complete history and physical exam was performed. 1904: The patient was placed on a ekg monitor tech. Continuous Cardiac Monitoring: An order was placed for continuous cardiac monitoring. The monitor shows a rate of 116 with atrial fibrillation. 1935: I checked on the patient and she is improved with additional respiratory support in place. The patient has been placed on a humidified high flow nasal canula by respiratory and a nebulizer treatment is being given. The patient's work of breathing is decreased. 2039: I re-checked the patient and updated her on test results. She states that she is feeling better. 2149: I spoke to Dr. Contreras, [place] [facility] who will further evaluate the patient. 2154: I re-checked the patient and updated her and her family on plan to admit. The patient verbally expressed understanding and agreement of the treatment plan. The patient will be evaluated for further treatment. Administered Medications Budesonide (Pulmicort Respules) 0.5 mg NEB BIDR [facility] Stop: 06/19/19 06:59 Last Admin: 05/21/19 07:04 Dose: 0.5 mg Documented by: [id number] Admin: 05/20/19 19:17 Dose: 0.5 mg Documented by: [id number] Admin: 05/20/19 07:05 Dose: 0.5 mg Documented by: [id number] Cyanocobalamin (Vitamin B-12) 1,000 mcg PO DAILY [facility] Stop: 06/19/19 08:59 Last Admin: 05/21/19 08:41 Dose: 1,000 mcg Documented by: [id number] Admin: 05/20/19 08:27 Dose: 1,000 mcg Documented by: [id number] Diltiazem HCl (Cardizem Cd) 300 mg PO QAM [facility] Stop: 06/19/19 08:59 Last Admin: 05/21/19 08:41 Dose: 300 mg Documented by: [id number] Admin: 05/20/19 08:27 Dose: 300 mg Documented by: [id number] Fish Oil (Ringling-3 (Purified Fish Oil)) 1 gm PO QAM [facility] Stop: 06/19/19 08:59 Last Admin: 05/21/19 08:38 Dose: 1 gm Documented by: [id number] Admin: 05/20/19 08:27 Dose: 1 gm Documented by: [id number] Guaifenesin (Mucinex) 600 mg PO Q12 [facility] Stop: 06/19/19 08:59 Last Admin: 05/21/19 08:41 Dose: 600 mg Documented by: [id number] Admin: 05/20/19 21:40 Dose: 600 mg Documented by: [id number] Admin: 05/20/19 08:27 Dose: 600 mg Documented by: [id number] Methylprednisolone 20 mg/ (Syringe) 0.32 mls @ 1.5 mls/min IV Q8H [facility] Stop: 06/19/19 00:00 Last Admin: 05/21/19 08:38 Dose: 1.5 mls/min Documented by: [id number] Admin: 05/21/19 01:37 Dose: 1.5 mls/min Documented by: [id number] Admin: 05/20/19 15:54 Dose: 1.5 mls/min Documented by: [id number] Admin: 05/20/19 08:24 Dose: 1.5 mls/min Documented by: [id number] Admin: 05/20/19 00:33 Dose: 1.5 mls/min Documented by: [id number] Piperacillin Sod/Tazobactam (Sod 3.375 gm/ Dextrose) 115 mls @ 28.75 mls/hr IV Q8H [facility]; Protocol Stop: 05/27/19 05:59 Last Infusion: 05/21/19 10:08 Dose: 0 mls/hr Documented by: [id number] Admin: 05/21/19 06:00 Dose: 28.8 mls/hr Documented by: [id number] Infusion: 05/21/19 01:47 Dose: 0 mls/hr Documented by: [id number] Admin: 05/20/19 21:42 Dose: 28.8 mls/hr Documented by: [id number] Infusion: 05/20/19 18:17 Dose: 0 mls/hr Documented by: [id number] Admin: 05/20/19 14:17 Dose: 28.8 mls/hr Documented by: [id number] Infusion: 05/20/19 09:09 Dose: 0 mls/hr Documented by: [id number] Admin: 05/20/19 05:09 Dose: 28.8 mls/hr Documented by: [id number] Insulin Aspart (Novolog Flexpen) 0 units SC ACHS [facility] Stop: 06/19/19 07:29 Last Admin: 05/21/19 11:57 Dose: 9 units Documented by: [id number] Cosigned by: [id number] Admin: 05/21/19 08:38 Dose: 6 units Documented by: [id number] Cosigned by: [id number] Admin: 05/20/19 21:39 Dose: 7 units Documented by: [id number] Cosigned by: [id number] Admin: 05/20/19 16:51 Dose: 5 units Documented by: [id number] Cosigned by: [id number] Admin: 05/20/19 11:43 Dose: 5 units Documented by: [id number] Cosigned by: [id number] Admin: 05/20/19 08:23 Dose: 4 units Documented by: [id number] Cosigned by: [id number] Levalbuterol HCl (Xopenex 1.25mg/0.5ml Neb) 1.25 mg INH Q6R [facility] Stop: 06/19/19 00:59 Last Admin: 05/21/19 13:37 Dose: 1.25 mg Documented by: [id number] Admin: 05/21/19 07:05 Dose: 1.25 mg Documented by: [id number] Admin: 05/21/19 01:09 Dose: 1.25 mg Documented by: [id number] Admin: 05/20/19 19:17 Dose: 1.25 mg Documented by: [id number] Admin: 05/20/19 13:03 Dose: 1.25 mg Documented by: [id number] Admin: 05/20/19 07:05 Dose: 1.25 mg Documented by: [id number] Admin: 05/20/19 01:00 Dose: 1.25 mg Documented by: [id number] Niacin (Niaspan Extended Rel) 500 mg PO BID [facility] Stop: 06/19/19 08:59 Last Admin: 05/21/19 08:41 Dose: 500 mg Documented by: [id number] Admin: 05/20/19 21:41 Dose: 500 mg Documented by: [id number] Admin: 05/20/19 08:27 Dose: 500 mg Documented by: [id number] Umeclidinium [place] (Incruse Ellipta) 1 puffs INH DAILY [facility] Stop: 06/20/19 11:59 Last Admin: 05/21/19 12:46 Dose: 1 puffs Documented by: [id number] Vitamin D (Vitamin D3) 1,000 units PO QAM [facility] Stop: 06/19/19 08:59 Last Admin: 05/21/19 08:38 Dose: 1,000 units Documented by: [id number] Admin: 05/20/19 08:27 Dose: 1,000 units Documented by: [id number] Discontinued Medications Albuterol (Duoneb) 3 ml NEB NOW STA Stop: 05/19/19 19:14 Last Admin: 05/19/19 19:30 Dose: 3 ml Documented by: [id number] Magnesium Sulfate/Dextrose (Magnesium Sulfate / D5w) 1 gm in 100 mls @ 100 mls/hr IV Q1H [facility] Stop: 05/19/19 22:14 Last Infusion: 05/19/19 23:16 Dose: 0 mls/hr Documented by: [id number] Admin: 05/19/19 21:18 Dose: 100 mls/hr Documented by: [id number] Infusion: 05/19/19 21:18 Dose: 100 mls/hr Documented by: [id number] Admin: 05/19/19 20:18 Dose: 100 mls/hr Documented by: [id number] Levofloxacin/Dextrose (Levaquin/D5w) 750 mg in 150 mls @ 100 mls/hr IV NOW STA Stop: 05/19/19 22:02 Last Infusion: 05/20/19 00:18 Dose: 0 mls/hr Documented by: [id number] Admin: 05/19/19 21:18 Dose: 100 mls/hr Documented by: [id number] Magnesium Sulfate/Dextrose (Magnesium Sulfate / D5w) 1 gm in 100 mls @ 100 mls/hr IV Q1H [facility] Stop: 05/20/19 02:14 Last Infusion: 05/20/19 02:33 Dose: 0 mls/hr Documented by: [id number] Admin: 05/20/19 01:33 Dose: 100 mls/hr Documented by: [id number] Infusion: 05/20/19 01:33 Dose: 100 mls/hr Documented by: [id number] Admin: 05/20/19 00:34 Dose: 100 mls/hr Documented by: [id number] Piperacillin Sod/Tazobactam (Sod 3.375 gm/ Dextrose) 115 mls @ 230 mls/hr IV NOW ONE; Protocol Stop: 05/20/19 01:29 Last Infusion: 05/20/19 02:21 Dose: 0 mls/hr Documented by: [id number] Admin: 05/20/19 01:40 Dose: 230 mls/hr Documented by: [id number] Insulin Aspart (Novolog Flexpen) 0 units SC ACHS [facility] Stop: 06/19/19 00:59 Last Admin: 05/20/19 10:27 Dose: Not Given Documented by: [id number] Cosigned by: [id number] Admin: 05/20/19 02:28 Dose: 5 units Documented by: [id number] Cosigned by: [id number] Insulin Glargine (Lantus Solostar Pen) 11 units SC NOW ONE Stop: 05/21/19 10:31 Last Admin: 05/21/19 11:05 Dose: 11 units Documented by: [id number] Cosigned by: [id number] Ipratropium [place] (Atrovent 0.02% 0.5mg/2.5ml) 0.5 mg INH Q6R [facility] Stop: 06/19/19 00:59 Last Admin: 05/21/19 07:05 Dose: 0.5 mg Documented by: [id number] Admin: 05/21/19 01:09 Dose: 0.5 mg Documented by: [id number] Admin: 05/20/19 19:17 Dose: 0.5 mg Documented by: [id number] Admin: 05/20/19 13:03 Dose: 0.5 mg Documented by: [id number] Admin: 05/20/19 07:05 Dose: 0.5 mg Documented by: [id number] Admin: 05/20/19 01:00 Dose: 0.5 mg Documented by: [id number] Critical Care Time Critical Care Time: Yes Total Critical Care Time: 40 Critical care of 40 min performed to assess and manage high likelihood of life- threatening respiratory distress, involving labs and imaging performed with assessment to evaluation respiratory distress diagnosis with frequent reassessment. This time includes bedside time, treatment discussions with patient/family/consultants, documentation time and excludes procedure time. Medical Decision Making Differential Diagnosis Differential diagnoses includes but is not limited to pneumonia, bronchitis, COPD/Asthma exacerbation, pneumothorax, pulmonary embolism, congestive heart failure, acute coronary syndrome Medical Records Attestation: I reviewed the patient's medical records. Home Medications Current Medication List: was personally reviewed by me Laboratory Data Attestation: I reviewed the patient's lab results. Result diagrams: 05/21/19 06:52 05/21/19 06:52 Lab Results 05/19/19 05/19/19 05/19/19 Range/Units 19:20 19:20 19:23 WBC 20.96 H (4.8-10.8) K/uL RBC 3.62 L (4.2-5.4) M/uL Hgb 11.0 L (12.0-16.0) g/dL Hct 35.3 L (37-47) % MCV 97.5 (80-100) fL MCH 30.4 (25-34) pg MCHC 31.2 L (32-36) g/dL RDW Std Deviation 51.2 H (36.4-46.3) fL RDW Coeff of Nataly 14.3 (11.5-14.5) % Plt Count 338 (130-400) K/uL MPV 9.1 (7.4-10.4) fL Immature Gran % (Auto) 0.3 % Neut % (Auto) 87.9 % Lymph % (Auto) 6.6 % [place] % (Auto) 5.0 % Eos % (Auto) 0.1 % Baso % (Auto) 0.1 % Immature Gran # (Auto) 0.06 H (0.00-0.02) K/uL Neut # (Auto) 18.42 H (1.4-6.5) K/uL Lymph # (Auto) 1.39 (1.2-3.4) K/uL [place] # (Auto) 1.04 H (0.11-0.59) K/uL Eos # (Auto) 0.03 (0-0.5) K/uL Baso # (Auto) 0.02 (0-0.2) K/uL PT 22.1 H (9.0-12.0) Seconds INR 2.3 H (0.9-1.1) ABG pH (7.35-7.45) ABG pCO2 (35-46) mmHg ABG pO2 (80-95) mmHg ABG HCO3 (19-24) mmol/L ABG O2 Saturation (90-95) % ABG Base Excess (-9-1.8) mEq/L Marques Test (Pos) Barometric Pressure mm/Hg Oxygen Given Sodium (136-145) mmol/L Potassium (3.5-5.1) mmol/L Chloride (98-107) mmol/L Carbon Dioxide (21-32) mmol/L Anion Gap (3-11) BUN (7-18) mg/dl Creatinine (0.6-1.2) mg/dl Est Cr Clr Drug Dosing Est GFR ( Amer) Est GFR (Non-Af Amer) BUN/Creatinine Ratio (10-20) Glucose (70-99) mg/dl Lactate (0.4-2.0) mmol/L Calcium (8.5-10.1) mg/dl Magnesium (1.8-2.4) mg/dl Total Bilirubin (0.2-1) mg/dl AST (15-37) U/L ALT (12-78) U/L Alkaline Phosphatase (45-117) U/L Troponin I (0-0.045) ng/ml NT-Pro-B Natriuret Pep (0-1800) pg/ml Total Protein (6.4-8.2) gm/dl Albumin (3.4-5.0) gm/dl Globulin (2.5-4.0) gm/dl Albumin/Globulin Ratio (0.9-2) Procalcitonin 0.65 H (0-0.5) ng/ml 05/19/19 05/19/19 05/19/19 Range/Units 19:23 19:34 21:04 WBC (4.8-10.8) K/uL RBC (4.2-5.4) M/uL Hgb (12.0-16.0) g/dL Hct (37-47) % MCV (80-100) fL MCH (25-34) pg MCHC (32-36) g/dL RDW Std Deviation (36.4-46.3) fL RDW Coeff of Nataly (11.5-14.5) % Plt Count (130-400) K/uL MPV (7.4-10.4) fL Immature Gran % (Auto) % Neut % (Auto) % Lymph % (Auto) % Hamb[place] % (Auto) % Eos % (Auto) % Baso % (Auto) % Immature Gran # (Auto) (0.00-0.02) K/uL Neut # (Auto) (1.4-6.5) K/uL Lymph # (Auto) (1.2-3.4) K/uL [place] # (Auto) (0.11-0.59) K/uL Eos # (Auto) (0-0.5) K/uL Baso # (Auto) (0-0.2) K/uL PT (9.0-12.0) Seconds INR (0.9-1.1) ABG pH 7.41 (7.35-7.45) ABG pCO2 49 H (35-46) mmHg ABG pO2 70 L (80-95) mmHg ABG HCO3 30 H (19-24) mmol/L ABG O2 Saturation 94.1 (90-95) % ABG Base Excess 4.7 H (-9-1.8) mEq/L Marques Test POS (Pos) Barometric Pressure 733.1 mm/Hg Oxygen Given FIO2 50% Sodium 138 (136-145) mmol/L Potassium 4.1 (3.5-5.1) mmol/L Chloride 94 L (98-107) mmol/L Carbon Dioxide 32 (21-32) mmol/L Anion Gap 12.0 H (3-11) BUN 16 (7-18) mg/dl Creatinine 1.23 H (0.6-1.2) mg/dl Est Cr Clr Drug Dosing Not Reportable Est GFR ( Amer) 48.3 Est GFR (Non-Af Amer) 41.7 BUN/Creatinine Ratio 12.8 (10-20) Glucose 253 H (70-99) mg/dl Lactate 6.1 H* (0.4-2.0) mmol/L Calcium 9.2 (8.5-10.1) mg/dl Magnesium 1.4 L (1.8-2.4) mg/dl Total Bilirubin 1.0 (0.2-1) mg/dl AST 34 (15-37) U/L ALT 49 (12-78) U/L Alkaline Phosphatase 139 H (45-117) U/L Troponin I < 0.015 (0-0.045) ng/ml NT-Pro-B Natriuret Pep 1005 (0-1800) pg/ml Total Protein 7.4 (6.4-8.2) gm/dl Albumin 3.4 (3.4-5.0) gm/dl Globulin 4.0 (2.5-4.0) gm/dl Albumin/Globulin Ratio 0.9 (0.9-2) Procalcitonin (0-0.5) ng/ml Imaging Data Radiologist's Impression: Radiology results as stated below per my review and the radiologist's interpretation: XR chest 1V portable HISTORY: 79 years-old Female sob acute shortness of breath COMPARISON: Chest radiograph 01/06/2019, CTA chest 12/27/2018 TECHNIQUE: Portable AP view of the chest FINDINGS: Cardiac silhouette is enlarged, unchanged. Calcified plaque of the thoracic aortic arch. Severe emphysema with chronic fibrotic changes. Chronic volume loss of the left lung with multifocal mixed interstitial and alveolar opacities. Dominant consolidation of the left lung base redemonstrated. There is slightly progressed consolidation of the left lung. Unchanged small left pleural eff usion. Right-sided pleural calcifications redemonstrated. No pneumothorax. Degenerative changes of the shoulders and spine. IMPRESSION: 1. Severe emphysema with chronic fibrotic changes and chronic left lung volume loss. 2. Mildly progressed opacities throughout the left lung may reflect worsened f ibrosis with atelectasis, pneumonitis versus asymmetric pulmonary edema. 3. Calcified pleural plaques of the right hemithorax redemonstrated. 4. Cardiomegaly. 5. Unchanged small left pleural effusion. ACT 112: Negative or not required by law. The above report was generated using voice recognition software. It may contain grammatical, syntax or spelling errors. Electronically signed by: Eamon Mccloud M.D. 05/19/2019 7:56 PM ECG Data Attestation: I personally reviewed and interpreted this ECG as follows: Indication: + chest pain Rate (beats per minute): 120 Rhythm: + atrial fibrillation ECG Intervals/blocks: + Normal QRS and + Normal QT-c ECG [place]: + Normal ECG Findings: + Other (no acute ischemic changes, poor quality tracing) Blood Pressure Blood Pressure Findings: Elevated blood pressure Blood Pressure Disposition: further management by hospitalist MDM Narrative Patient here due to increased work of breathing, and hypoxia noted at home when checked via pulse ox. Patient does wear oxygen chronically at home and has a known history of severe COPD. Patient has been compliant with her medications and nebulizer treatments, however felt her breathing was getting worse over the last 24 to 48 hours. Patient here found to be significantly hypoxic and in severe distress. Patient was started on Vapotherm high flow nasal cannula as she reports this was more comfortable for her than requiring the fullface BiPAP mask. Patient did have improvement with this. Patient was given additional nebulizer treatments. Patient does take steroids daily. Patient was started on additional antibiotics due to severe COPD exacerbation versus evolving pneumonia. Patient has previously had pneumonia. I did review prior hospi talizations in the fall as well as her prior bronchoscopy cultures prior to choosing antibiotics. Patient remained hemodynamically stable otherwise in the emergency room. Patient's INR therapeutic and I have a lower suspicion for PE. Patient and family were made aware of all results and were in agreement with plan. Case discussed with hospitalist for additional inpatient management. Impression & Plan Dyspnea, Hypoxia, COPD exacerbation, Leukocytosis Discharge Plan Visit Data *Final* Discharge Date/Time: 05/19/19 23:19 Chief Complaint: Shortness of Breath/Dyspnea Stated Complaint: HYPOXIA ED Provider: Maida Siddiqi Discharge Problem: Dyspnea, Hypoxia, COPD exacerbation, Leukocytosis Patient Disposition: Admitted As Inpatient Discharge Instructions Interventions: ED Discharge Assessment Last Done: 05/19/19 23:19 Discharge Problem: Dyspnea Qualifiers: Dyspnea type: unspecified Qualified Code(s): R06.00 - Dyspnea, unspecified Leukocytosis Qualifiers: Leukocytosis type: unspecified Qualified Code(s): D72.829 - Elevated white blood cell count, unspecified The scribe's documentation has been prepared under my direction and personally reviewed by me in its entirety. I confirm that the note above accurately reflects all work, treatment, procedures, and medical decision making performed by me.
--- NOTE | 2019-05-21 14:11 | Pulmonary Consultation ---
Date of Consultation May 21, 2019 Assessment & Plan (1) Acute on chronic respiratory failure with hypoxia: -- Acute on chronic hypoxic respiratory failure Likely sec to COPD exacerbation with chronic bronchiectasis on the left side Influenza negative, nasal MRSA negative. Follow-up sputum culture Continue with inhaled bronchodilators, steroids, antibiotics. Can transition to p.o. prednisone 40 mg to be taken for 3 days followed by 20 mg for 2 days and then stop taking prednisone. Maintain SPO2 between 88 to 92% BiPAP nightly and as needed shortness of breath Patient is on Lama inhaler along with lama/ICS. Patient is also on chronic prednisone at home. Would recommend discontinuing the chronic prednisone that she is taking at home. Patient needs pulmonary function tests to be done as an outpatient to see if she qualifies for a AVAPS CT chest without contrast 05/21/2019 personally reviewed: Patient has centrilobular emphysema moderate to severe. Patient also has bronchiectasis appreciated especially the left lower lobe as well as the left upper lobe. There is volume loss appreciated on the left side with mediastinal shift to the left. Right upper lobe peripheral pulmonary nodule unchanged since CAT scan 2016. --Bronchiectasis Left-sided likely secondary to chronic infection Patient does state that she had history of RAUL in the past Last [facility] per the patient was in December 2018 which grew Pseudomonas pansensitive Patient needs to have flutter device at home to help her with coughing. If that is advised and patient will benefit from chest vest device. --YIMI Patient does have CPAP at home but she is not compliant with it She uses it occasionally. Importance of using it every time when she goes to sleep explained to the patient in depth. --Right upper lobe pulmonary nodule Unchanged since CT scan 2016 No further follow-up needed for this nodule. >50% time was spent [id number] with the patient discussing diagnosis and plan of care. (2) COPD exacerbation: (3) Bronchiectasis: (4) COPD with emphysema: History of Present Illness Attending Physician: Willi Haro History of Present Illness 79-year-old female with past medical history of severe COPD on 3 L home O2, hypertension, A. fib on warfarin, RAUL was brought into the hospital with complaints of worsening shortness of breath which is been going on for the last couple of days progressively getting worse. Patient states that she was complaining of chest congestion. Was not coughing much was not bringing up too much phlegm. Did complain of subjective chills but no fever. No dysuria, no diarrhea. No recent upper respiratory infection. Patient said that she is compliant with her inhalers at home. No recent travel history. No hemoptysis. Denies any headache, no chest pain, no nausea or vomiting, no blurry vision. No night sweats, no weight loss. Social history: Greater than [id number] smoking history quit at the age of 60, social alcohol, no illicit drug use. No chemical exposure. 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 No pets at home. Does not stay on a farm. No poultry nearby. No personal history of any cancer. No family history of any lung cancer. Allergies Allergy/AdvReac Type Severity Reaction Status Date / Time Rflkgml-Ffw-Bfb Reductase Allergy Unknown Verified 05/19/19 20:37 Inhibitor Home Medications Home Medications Medication Instructions Recorded Confirmed Type Incruse Ellipta 1 inh INHALATION DAILY 08/21/18 05/19/19 History cholecalciferol (vitamin D3) 1,000 unit PO QAM 08/21/18 05/19/19 History [Vitamin D3] prednisone 10 mg tablet 10 mg PO DAILY #90 tab 09/04/18 05/19/19 Rx diltiazem HCl 300 mg 300 mg PO QAM #90 cap 11/16/18 05/19/19 Rx capsule,extended release 24 hr niacin 500 mg tablet,extended 500 mg PO BID #180 tab 01/02/19 05/19/19 Rx release 24 hr warfarin 1 mg tablet 2 mg PO [id number] tab 05/16/19 05/19/19 History cranberry conc-ascorbic acid 1 cap PO QAM 05/19/19 05/19/19 History cyanocobalamin (vitamin B-12) 0 mcg PO DAILY 05/19/19 05/19/19 History metformin 500 mg PO BID 05/19/19 05/19/19 History dmipn-0l-aax-epa-fish oil [[place]-3 1 cap PO QAM 05/19/19 05/19/19 History Fish Oil] Patient History Medical History Acute and chronic respiratory failure with hypercapnia (Resolved) Anemia (Resolved) Chronic obstructive pulmonary disease (Resolved) Chronic respiratory failure with hypoxia and hypercapnia (Resolved) COPD exacerbation (Resolved) Falls frequently (Resolved) Fatty liver (Resolved) Heart murmur HTN (hypertension) (Resolved) Hyperlipidemia Hypoxia (Resolved) Impaired fasting glucose (Resolved) Influenza vaccine needed (Resolved) Insomnia (Resolved) Internal hemorrhoids (Resolved) Osteopenia (Resolved) Other specified disorders of bone density and structure, other site (Resolved) Pleural effusion on left (Resolved) PNA (pneumonia) (Resolved 06/20/13) Pneumonia (Resolved) Respiratory distress (Resolved 06/20/13) Respiratory failure (Resolved) Sepsis (Resolved) Shortness of breath (Resolved) Tubular adenoma of colon (Resolved) Type 2 diabetes mellitus (Resolved) Surgical History H/O colonoscopy Family History Father Myocardial infarction Sister Aneurysm of abdominal aorta Cerebral aneurysm Emphysema lung Mother Emphysema lung Tobacco abuse Son Diabetes Denies family history of Breast cancer Colorectal cancer Social History Preferred Language: Estonian Communication Ability: Effective Hearing Ability: Normal High School Admissions Representative Required: No Beliefs That Will Affect Care: None marital status: Current Living Situation: Spouse current occupational status: retired Feels Safe at Home: Yes Smoking Status: Former smoker Age Started Using Tobacco: 23 ; Cigarettes Per Day: has approx 40 pack year history ; Second Hand Exposure: No ; Hx Alcohol Use: No Hx Substance Use: No Childhood Exposure to Second-Hand Smoke: Yes (Mother) Seatbelt Use: always Sunscreen Use: Yes Review of Systems Review of Systems: All systems reviewed & are unremarkable except as noted in HPI & below Physical Exam Physical Exam: Constitutional: No acute distress HEENT: EOMI, PERRLA Respiratory system: Decreased air entry bilaterally, more decreased on the left side, positive crackles left side, no wheeze CVS: S1-S2 positive, no murmurs or gallops Abdomen: Soft, nontender, nondistended, positive bowel sounds x4 Extremities: +2 pulses bilaterally radialis/ dorsalis pedis, no cyanosis, no edema Neuro: Awake alert oriented x3 Psych: Normal mood and affect G/U: Positive Amezcua At the time of examination patient was saturating 89% on 4 L nasal cannula at rest. Skin: no rashes, warm and dry Lymphatic: no cervical or axillary lymphadenopathy Results & Data ([facility]) Vital Signs (Past 12 Hours) Vital Signs Temp Pulse Pulse Resp BP Pulse Ox 05/21/19 13:38 93 H 18 94 05/21/19 08:00 89 05/21/19 07:24 36.6 C 102 H 22 117/66 97 05/21/19 07:05 95 H 20 92 05/21/19 02:38 36.5 C 100 H 19 155/[address] chest without contrast 05/21/2019 personally reviewed: Patient has centrilobular emphysema moderate to severe. Patient also has bronchiectasis appreciated especially the left lower lobe as well as the left upper lobe. There is volume loss appreciated on the left side with mediastinal shift to the left. Right upper lobe peripheral pulmonary nodule unchanged since CAT scan 2016. 05/21/19 06:52 05/21/19 06:52 PG Care Time/CCT Total # of Minutes Spent Total Time Spent with Patient: Total time spent is greater than 50% in coordination of care (as documented) at patient's floor/unit and/or counseling patient: [place] [address] Initial Inpt Care Lvl 3 Patient Type New Diagnoses Acute on chronic respiratory failure with hypoxia J96.21 COPD exacerbation J44.1 Bronchiectasis J47.9 COPD with emphysema J43.9 Time Spent (min) 55
[2019-05-21] MEDS: WARFARIN SOD 2 MG TAB PO SCH (17:00)
[2019-05-21] MEDS ORDERED: LEVOFLOXACIN/D5W 750 MG/150 ML BAG IV SCH (20:00)
[2019-05-21] MEDS ORDERED: INSULIN GLARGINE SOLOSTAR 100 UNITS/ML 3 ML PEN SC SCH (21:00)
[2019-05-22] MEDS: methylPREDNISolone 20 MG in SYRINGE 0 ML IV SCH (00:11)
[2019-05-22] MEDS: LEVALBUTEROL 1.25MG/0.5ML NEB INH SCH ×2 (00:34→07:13)
[2019-05-22] MEDS: PIPERACILLIN/TAZOBACTAM 3.375 GM in DEXTROSE 5% 100 ML IV SCH ×2 (05:04→14:21)
[2019-05-22] MEDS: BUDESONIDE 0.5 MG/2 ML VIAL (PULMICORT) NEB SCH (07:13)
[2019-05-22] MEDS ORDERED: PHARMACY GLYCEMIC MGMT CONSULT PRN (07:15)
[2019-05-22 07:40] LABS: Basophils # (auto) 0.01 K/uL (0-0.2); Basophils % (auto) 0.1 %; Hematocrit (blood only) 33.9 % (37-47); Hemoglobin 10.7 g/dL (12.0-16.0); Immature Granulocytes # (auto) 0.08 K/uL (0.00-0.02); Immature Granulocytes % (auto) 0.4 %; Lymphocytes # (auto) 0.68 K/uL (1.2-3.4); Lymphocytes % (auto) 3.6 %; Mean Corpuscular Hemoglobin 30.1 pg (25-34); Mean Corpuscular Hgb Conc 31.6 g/dL (32-36); Mean Corpuscular Volume 95.2 fL (80-100); Mean Platelet Volume 9.6 fL (7.4-10.4); Monocytes # (auto) 0.79 K/uL (0.11-0.59); Monocytes % (auto) 4.2 %; Neutrophils # (auto) 17.16 K/uL (1.4-6.5); Neutrophils % (auto) 91.7 %; Platelet Count 387 K/uL (130-400); RDW Coefficient of Variation 14.3 % (11.5-14.5); RDW Standard Deviation 49.7 fL (36.4-46.3); Red Blood Count 3.56 M/uL (4.2-5.4); White Blood Count 18.72 K/uL (4.8-10.8)
--- NOTE | 2019-05-22 07:41 | Hospitalist Progress Note ---
Date of Service May 22, 2019 Assessment & Plan (1) Acute on chronic respiratory failure with hypoxia: 79 yo F extensive PMH including pulmonary fibrosis, COPD exacerbation, afib/flutter on warfarin, HTN, HLD, T2DM presents with 48 hour h/o progressive dyspnea, likely related to pneumonia in setting of chronic respiratory illness. Acute on chronic respiratory failure/COPD exacerbation/superimposed pneumonia on pulmonary fibrosis -Admit to monitored bed. -Zosyn 3.375 mg IV every 8 hours. -Levofloxacin 500 mg IV daily. -Xopenex nebulizers every 6 hours. 05/20 Atrovent nebs discontinued and started on tiotropium 1 puff qAM. -Pulmicort Respules 0.5 mg inhaled twice daily. -Methylprednisolone 20 mg IV every 8 hours transitioned to Prednisone 40mg PO on 05/21; she will continue pred 40mg for a total of 3 days, then decrease to Pred 20mg for 2 days, then discontinue prednisone per Pulm -Continue heated high flow nasal cannula oxygen, taper to her baseline 3-3.5 liters nasal cannula O2 as symptoms improve. -Pt requiring hi-flow 40%, consulted pulmonology. Sees Dr. Cole as outpt. -Lactate of 6.1 on admission, repeat 4.8; 05/20 repeat was 3.1 -Procal 05/20 4.57, continue abx treated -Hold home prednisone and discontinue home pred on discharge and Incruse Pricila block captain. -Pulmonary toilet -Influenza negative -currently on baseline 4L NC -05/[address] non-con ordered today to help with diagnosis of lung pathology: 1. Severe emphysema. Basilar predominant morphology could suggest underlying alpha-1 antitrypsin deficiency or primary ciliary dyskinesia. 2. Significant interval decrease in peribronchovascular consolidation throughout the left lung. Stable background bronchiectasis and left basilar cicatrizing atelectasis. 3. Resolution of prior nodular infiltrates in the right lung. 4. Mild patchy groundglass infiltrates in the right lower lobe new from prior, possibly developing pneumonia or mild pneumonitis. 5. Solid 3 mm right upper lobe nodules stable from prior. No new nodule. 6. Evidence of prior asbestos exposure with chronic pleural disease. 7. Possible liver fibrosis. Atrial fibrillation and flutter/hypertension -Continue diltiazem extended release 300 mg daily. -Continue warfarin at current dosing, INR slightly sub therapeutic at 1.9, and check INR daily. Diabetes mellitus type 2, uncontrolled -Hold metformin. -Placed on Accu-Cheks before meals and at bedtime with NovoLog coverage per scale. -A1c 05/19 6.4 -Pharmacy consulted for hyperglycemic management in setting of Prednisone; has had elevated POC with readings in high 200s-mid 300s Hyperlipidemia -Continue niacin, fish oil Code: Full per discussion. (Patient previously DNR but OK for intubation.) Clarified pt wishes on 05/20/19. DVTP: warfarin FEN/GI: carb consistent Dispo: med tele, cont to monitor. PT/OT ordered 05/20. (2) Dyspnea: (3) Hypoxia: (4) COPD exacerbation: (5) Hyperlipidemia: (6) Anemia: (7) Respiratory failure: (8) Osteopenia: (9) Hypertension: (10) Anxiety: (11) Atrial fibrillation and flutter: (12) Diabetes mellitus type 2, uncontrolled: Admission and Anticipated Discharge Date Admission Date: May 19, 2019 Supervising Physician Co-Signing Physician Notes I saw the patient with the resident physician and confirmed mondragon portion of the history and physical examination. No wheezing heard on examination. Joyce has a history of severe COPD with an FEV1 reported to be about 30%, chronic respiratory failure on home O2 at 4 L/min. Currently she is on 3 liters nasal cannula. She had been admitted in December 2018 for hypoxic hypercarbic respiratory failure requiring mechanical ventilation. In this admission, the patient and family note that she had a progressive increase in her baseline shortness of breath over the preceding 3 to 4 days. Vitals appear stable and as stated above: she is saturating fine on her regular home oxygen requirements. She is alert. Oriented. Lungs with decreased breath sounds throughout; Cardiovascular regular but mildly tachycardic Blood blood cell count 20.96 upon admission, 18 today. Hemoglobin 10.7 INR is 1.9 Lactate 6.1 upon admission, 4.8 upon repeat, lactic acid improved to 2.3, but then increased to 5 likely lactic acidosis type B, short acting agonists may sometimes elevate lactic acid. will stop rechecking after discussing with pulmonary. Chest x-ray consistent with severe emphysema and fibrotic changes Acute on chronic respiratory failure, COPD exacerbation Pneumonia in the setting of pulmonary fibrosis Additional diagnoses as noted above Continue Zosyn and Levaquin And steroids. Consult pulmonology. Plan is to discharge in AM but want to monitor patient ff round the clock nebulizers. Subjective Joyce notes that her breathing continues to improve daily and feels improved today. She notes feeling shaky when getting out of bed today. No other acute complaints noted. No overnight events reported. She is asking when she might be able to go home. Review of Systems Review of Systems: All systems reviewed & are unremarkable except as noted in HPI & below Physical Exam Constitutional: WD/WN, vitals as above cooperative and comfortable Eyes: PERRL, conjunctivae normal, anicteric sclerae ENMT: external ear and nose normal, oropharynx normal Neck: normal visual inspection and trachea midline Respiratory: normal respiratory effort; no respiratory distress inspiratory and expiratory rhonchi at posterior bases and posterior mid lung; diffuse posterior mid lung mild expiratory wheeze; air movement sounds improved from yesterday; prolonged expiration phase Cardiovascular: Rate/Rhythm: regular rate and + irregularly irregular Gastrointestinal (Abdomen): Percussion/Palpation: abdomen soft; abdomen nontender Musculoskeletal: Head/Neck/Chest: normocephalic and head atraumatic Skin: no rashes, warm and dry Neurologic: moves all extremities and awake Psychiatric: A+Ox3, euthymic affect Results & Data ([facility]) Vital Signs (Past 12 Hours) Vital Signs Temp Pulse Pulse Pulse Resp BP Pulse Ox 05/22/19 07:13 106 H 18 94 05/22/19 03:41 36.7 C 97 H 18 128/78 93 05/22/19 00:36 95 H 16 95 05/22/19 00:00 104 H 05/21/19 23:20 36.8 C 104 H 19 142/83 H 94 05/21/19 19:43 37.3 C 100 H 18 148/78 H 91 Resident Activity Tracking Resident Involvement: Resident Care Provided Care Provided: Adult Hospital Medicine (1) Dyspnea Dyspnea type: unspecified Qualified Code(s): R06.00 - Dyspnea, unspecified
[2019-05-22] MEDS ORDERED: INSULIN ASPART 100 UNITS/ML 3 ML PEN SC STA (07:46)
[2019-05-22 07:48] LABS: INR 1.9 (0.9-1.1); Prothrombin Time 18.8 Seconds (9.0-12.0)
[2019-05-22] MEDS ORDERED: INSULIN HUMAN NPH SC ONE (08:00)
[2019-05-22] MEDS: INSULIN ASPART 100 UNITS/ML 3 ML PEN SC SCH ×4 (08:05→20:22)
[2019-05-22] MEDS: dilTIAZem HCL 300 MG CAPCR PO SCH (08:08)
[2019-05-22] MEDS: guaiFENesin 600 MG TABCR PO SCH ×2 (08:09→20:20)
[2019-05-22] MEDS: UMECLIDINIUM BROMIDE 62.5MCG/BLISTER 7 PUFFS/INHALER INH SCH (08:09)
[2019-05-22] MEDS: NIACIN EXTENDED REL 500 MG TABCR PO SCH ×2 (08:10→20:20)
[2019-05-22] MEDS: OMEGA-3 (PURIFIED FISH OIL) 1 GM CAP PO SCH (08:13)
[2019-05-22] MEDS: predniSONE 20 MG TAB PO SCH (08:14)
[2019-05-22 08:15] LABS: BUN Creatinine Ratio 21.3 (10-20); Calcium 9.1 mg/dl (8.5-10.1); Est GFR (African American) 34.1; Est GFR (Non-African American) 29.4; Magnesium 2.1 mg/dl (1.8-2.4); Phosphorus 4.5 mg/dl (2.5-4.9); Potassium 3.8 mmol/L (3.5-5.1)
[2019-05-22] MEDS: CYANOCOBALAMIN 500 MCG TABLET (VITAMIN B-12) PO SCH (08:15)
[2019-05-22] MEDS: CHOLECALCIFEROL 1,000 UNITS 25 MCG TAB PO SCH (08:15)
[2019-05-22 08:21] LABS: Albumin Globulin Ratio 0.7 (0.9-2); Bilirubin,Total 0.6 mg/dl (0.2-1); Globulin 4.5 gm/dl (2.5-4.0); Total Protein 7.5 gm/dl (6.4-8.2)
[2019-05-22] MEDS ORDERED: SODIUM CHLORIDE 0.9% 1000ML 1,000 ML IV SCH (09:45)
[2019-05-22] MEDS ORDERED: BUDESONIDE 0.5 MG/2 ML VIAL (PULMICORT) NEB PRN (09:55)
[2019-05-22] MEDS ORDERED: LEVALBUTEROL 1.25MG/0.5ML NEB INH PRN (09:55)
--- NOTE | 2019-05-22 10:03 | Pharmacy Report ---
Glycemic Control Consultation - Date of Service May 22, 2019 - Scope Scope: Glycemic Pharmacist consulted for glycemic control and to write orders per [facility] inpatient glycemic control protocol. - Objective Weight: 61.6 kg Accuchecks BSG (last 24hrs): 05/21/19 05/21/19 05/21/19 11:02 11:03 13:32 Glucose POC Glucose 346 H* 360 H* 271 H 05/21/19 05/21/19 05/22/19 16:23 20:32 06:47 Glucose 274 H POC Glucose 289 H 345 H* 05/22/19 07:21 Glucose POC Glucose 284 H Laboratory Data (last 24hrs): 05/22/19 06:47 Potassium 3.8 Carbon Dioxide 28 Anion Gap 12.0 H Creatinine 1.64 H Est Cr Clr Drug Dosing 24.0 HbA1c: Hemoglobin A1c 6.4 % (4.5-5.6) H 05/20/19 05:30 - Recent Pertinent Medications Outpatient Anti-diabetic Regimen: * Metformin * A1c = 6.4 % 05/20/2019 - Assessment & Plan Assessment & Plan: ASSESSMENT: * Ms. Mcclendon is a 79yo F type II diabetic. She pw acute on chronic respiratory failure. PMHx consistent w COPD (unknown GOLD classification), AF, HLD, among others. She appears to be chronically anemic making her A1C an unreliable lab value in assessing her diabetic status. * Pharmacy is consulted to help control her steroid induced hyperglycemia. Glu cocorticoids are being adjusted: SM 20mg q8 --> Prednisone taper. First dose of 40mg today x3 days, then 20mg x2 days, then stop. She is ordered a diet. She is ordered IV antibx. PLAN FOR INPATIENT GLYCEMIC CONTROL: * Holding outpatient oral diabetes medications * Basal insulin - Lantus --> NPH * NPH daily with PO prednisone. * Bolus insulin - tightened * NovoLog per scale ACHS or Q6hrs while NPO * Goal Range: Low 100 mg/dL - High 140 mg/dL * Correction Factor: 25 mg/dL/unit * Nutritional / Prandial insulin per carb ratio of 1 unit per 9 grams CHO consumed Discharge Recs: * Metformin is contraindicated with GFR < 30. I would recommend d/c'ing her home Rx of metformin. If outpt glycemic management is desired, Januvia 25mg daily would be reasonable * Could consider NPH whilst on PO prednisone * Please note that the plan above was derived based on current level of insulin resistance and hospital stress. These recommendations are appropriate for inpatient admission only. Plan of care upon discharge will need to be reassessed to avoid potential outpatient hypo/hyperglycemia. Thank you.
--- NOTE | 2019-05-22 15:42 | Pulmonology Progress Note ---
Date of Service May 22, 2019 Assessment & Plan (1) Acute on chronic respiratory failure with hypoxia: -- Acute on chronic hypoxic respiratory failure Likely sec to COPD exacerbation with chronic bronchiectasis on the left side Influenza negative, nasal MRSA negative. Follow-up sputum culture Continue with inhaled bronchodilators, steroids, antibiotics. Transition to p.o. prednisone 40 mg to be taken for 3 days followed by 20 mg for 2 days and then stop taking prednisone. Maintain SPO2 between 88 to 92% BiPAP nightly and as needed shortness of breath On asking today whether the patient is taking Incruse along with Advair. Patient states that she has not been using Advair for more than 2 months. In that case would recommend discharging the patient on lama/lama inha ler(Stiolto/Bevespi/Anoro) to be taken on a daily basis. Would recommend discontinuing the chronic prednisone that she is taking at home. Patient needs pulmonary function tests to be done as an outpatient to see if she qualifies for a AVAPS CT chest without contrast 05/21/2019 personally reviewed: Patient has centrilobular emphysema moderate to severe. Patient also has bronchiectasis appreciated especially the left lower lobe as well as the left upper lobe. There is volume loss appreciated on the left side with mediastinal shift to the left. Right upper lobe peripheral pulmonary nodule unchanged since CAT scan 2016. --Bronchiectasis Left-sided likely secondary to chronic infection Patient does state that she had history of RAUL in the past Last [facility] per the patient was in December 2018 which grew Pseudomonas pansensitive Patient needs to have flutter device at home to help her with coughing. If that fails then patient will benefit from chest vest device. --YIMI Patient does have CPAP at home but she is not compliant with it She uses it occasionally. Importance of using it every time when she goes to sleep explained to the patie nt in depth. --Right upper lobe pulmonary nodule Unchanged since CT scan 2016 No further follow-up needed for this nodule. Plan: From pulmonary perspective patient is back to her baseline. Discharge the patient on Labe/lama combination inhaler to be taken on a daily basis. Taper steroids within 5 days as per above recommendation. Needs to follow-up with pulmonary within 2 weeks of discharge. Recommend having repeat PFTs done as an outpatient. Continue with flutter valve as outpatient. No further recommendations from pulmonary perspective. Will sign off. Recall if needed. Please note the above document was generated using voice recognition software. It may contain grammatical, syntax or spelling errors. (2) COPD exacerbation: (3) Bronchiectasis: (4) COPD with emphysema: Subjective Patient seen and examined at bedside. No acute distress, no adverse events overnight. Patient is feeling better. Shortness of breath is improved. Patient is coughing and bringing up little bit of phlegm. No chest pain, no dizziness, no headache, no nausea, no vomiting. Good appetite. Review of Systems Review of Systems: All systems reviewed & are unremarkable except as noted in HPI & below Physical Exam Physical Exam: Constitutional: No acute distress HEENT: EOMI, PERRLA Respiratory system: Decreased air entry bilaterally, more decreased on the left side, positive crackles left side, no wheeze CVS: S1-S2 positive, no murmurs or gallops Abdomen: Soft, nontender, nondistended, positive bowel sounds x4 Extremities: +2 pulses bilaterally radialis/ dorsalis pedis, no cyanosis, no edema Neuro: Awake alert oriented x3 Psych: Normal mood and affect G/U: Positive Amezcua At the time of examination patient was saturating 93% on 4 L nasal cannula at rest. Went down to 3 L. Skin: no rashes, warm and dry Lymphatic: no cervical or axillary lymphadenopathy Results & Data ([facility]) Vital Signs (Past 12 Hours) Vital Signs Temp Pulse Pulse Resp BP BP Pulse Ox 05/22/19 15:22 109 H 05/22/19 15:15 36.7 C 99 H 20 138/79 96 05/22/19 14:15 94 05/22/19 13:19 05/22/19 11:24 64 05/22/19 10:35 36.7 C 106 H 22 155/64 H 94 05/22/19 08:00 102 H 05/22/19 07:19 36.7 C 101 H 18 148/73 H 98 05/22/19 07:13 106 H 18 94 05/22/19 03:41 36.7 C 97 H 18 128/78 93 Pulse Ox Pulse Ox Pulse Ox 05/22/19 15:22 05/22/19 15:15 05/22/19 14:15 05/22/19 13:19 91 95 88 L 05/22/19 11:24 05/22/19 10:35 05/22/19 08:00 05/22/19 07:19 05/22/19 07:13 05/22/19 03:41 05/22/19 06:47 05/22/19 06:47 PG Care Time/CCT Total # of Minutes Spent Total Time Spent with Patient: Total time spent is greater than 50% in coordination of care (as documented) at patient's floor/unit and/or counseling patient: Coding Level of Care Code 87779 Subseq Hosp Care Lvl 3 Diagnoses Acute on chronic respiratory failure with hypoxia J96.21 COPD exacerbation J44.1 Bronchiectasis J47.9 COPD with emphysema J43.9
[2019-05-22] MEDS: WARFARIN SOD 2 MG TAB PO SCH (16:12)
--- NOTE | 2019-05-23 07:32 | Billing Data ---
Date of Service May 22, 2019 Coding Level of Care Code 24528 Subseq Hosp Care Lvl 3 Time Spent (min) 35
[2019-05-23 07:38] LABS: Basophils # (auto) 0.01 K/uL (0-0.2); Basophils % (auto) 0.1 %; Eosinophils # (auto) 0.01 K/uL (0-0.5); Eosinophils % (auto) 0.1 %; Hemoglobin 10.3 g/dL (12.0-16.0); Immature Granulocytes # (auto) 0.16 K/uL (0.00-0.02); Immature Granulocytes % (auto) 1.4 %; Lymphocytes # (auto) 1.79 K/uL (1.2-3.4); Lymphocytes % (auto) 15.7 %; Mean Corpuscular Hemoglobin 29.8 pg (25-34); Mean Corpuscular Hgb Conc 31.2 g/dL (32-36); Mean Corpuscular Volume 95.4 fL (80-100); Mean Platelet Volume 9.3 fL (7.4-10.4); Monocytes # (auto) 0.99 K/uL (0.11-0.59); Monocytes % (auto) 8.7 %; Neutrophils # (auto) 8.46 K/uL (1.4-6.5); Platelet Count 296 K/uL (130-400); RDW Coefficient of Variation 14.5 % (11.5-14.5); RDW Standard Deviation 50.2 fL (36.4-46.3); Red Blood Count 3.46 M/uL (4.2-5.4); White Blood Count 11.42 K/uL (4.8-10.8)
[2019-05-23 07:47] LABS: INR 2.1 (0.9-1.1); Prothrombin Time 20.3 Seconds (9.0-12.0)
[2019-05-23] MEDS ORDERED: INSULIN HUMAN NPH SC SCH (08:00)
[2019-05-23] MEDS: predniSONE 20 MG TAB PO SCH (08:06)
[2019-05-23] MEDS: guaiFENesin 600 MG TABCR PO SCH (08:06)
[2019-05-23] MEDS: OMEGA-3 (PURIFIED FISH OIL) 1 GM CAP PO SCH (08:06)
[2019-05-23] MEDS: CYANOCOBALAMIN 500 MCG TABLET (VITAMIN B-12) PO SCH (08:06)
[2019-05-23] MEDS: dilTIAZem HCL 300 MG CAPCR PO SCH (08:06)
[2019-05-23] MEDS: CHOLECALCIFEROL 1,000 UNITS 25 MCG TAB PO SCH (08:07)
[2019-05-23] MEDS: NIACIN EXTENDED REL 500 MG TABCR PO SCH (08:07)
[2019-05-23] MEDS: UMECLIDINIUM BROMIDE 62.5MCG/BLISTER 7 PUFFS/INHALER INH SCH (08:07)
[2019-05-23 08:11] LABS: BUN Creatinine Ratio 28.6 (10-20); Creatinine Clr Calc Pharmacy 30.5 ml/min; Est GFR (African American) 45.6; Est GFR (Non-African American) 39.4; Potassium 3.7 mmol/L (3.5-5.1)
[2019-05-23] MEDS: INSULIN ASPART 100 UNITS/ML 3 ML PEN SC SCH ×2 (08:13→13:03)
--- NOTE | 2019-05-23 12:01 | Discharge Summary ---
Date of Service May 23, 2019 Admission HPI Per Admitting Provider The patient is a 79-year-old female with a past medical history including severe COPD, chronic respiratory failure, osteopenia, hypertension, anxiety, atrial fibrillation flutter on warfarin, RAUL, dyslipidemia, pneumonia and diabetes mellitus. She chronically wears 3 and half liters of oxygen at home. She and her family reports that over the past 24 to 48 hours she is noticed increased shortness of breath with minimal activity. There has been no change in her chronic cough. Principal Diagnosis Acute on Chronic Respiratory Failure Discharge Exam Constitutional WD/WN, vitals as above cooperative and comfortable Eyes PERRL, conjunctivae normal, anicteric sclerae ENMT external ear and nose normal, oropharynx normal Neck normal visual inspection and trachea midline Respiratory normal respiratory effort; no respiratory distress Auscultation: + rales (posterior bases bilaterally and posterior lung zones) Cardiovascular Rate/Rhythm: regular rate and + irregularly irregular Gastrointestinal (Abdomen) Percussion/Palpation: abdomen soft; abdomen nontender Musculoskeletal Head/Neck/Chest: normocephalic and head atraumatic Skin no rashes, warm and dry Neurologic moves all extremities and awake Psychiatric A+Ox3, euthymic affect Discharge Data Allergies Allergy/AdvReac Type Severity Reaction Status Date / Time Axhwewr-Wgl-Wda Reductase Allergy Unknown Verified 05/19/19 20:37 Inhibitor Consultations 05/19/19 21:49 ED Decision to Admit Stat 05/20/19 00:15 Consult Case Management - Discharge Planning Routine 05/20/19 15:10 Consult Pulmonology Routine Ordered Studies 05/21/19 08:15 CT chest wo con Urgent IMPRESSION: 1. Severe emphysema. Basilar predominant morphology could suggest underlying alpha-1 antitrypsin deficiency or primary ciliary dyskinesia. 2. Significant interval decrease in peribronchovascular consolidation throughout the left lung. Stable background bronchiectasis and left basilar cicatrizing atelectasis. 3. Resolution of prior nodular infiltrates in the right lung. 4. Mild patchy groundglass infiltrates in the right lower lobe new from prior, possibly developing pneumonia or mild pneumonitis. 5. Solid 3 mm right upper lobe nodules stable from prior. No new nodule. 6. Evidence of prior asbestos exposure with chronic pleural disease. 7. Possible liver fibrosis. Hospital Course (1) Acute on chronic respiratory failure with hypoxia: 79 yo F extensive PMH including pulmonary fibrosis, COPD exacerbation, afib/flutter on warfarin, HTN, HLD, T2DM presents with 48 hour h/o progressive dyspnea, likely related to pneumonia in setting of chronic respiratory illness. Was able to be weaned back to baseline after course of Prednisone, Antibiotics as listed below, and Pulmonary support with nebs. She was discharged on on Levaquin 750mg q48 hours for two more doses for a total treatment of 7 days per Pulm reqs. She was on a Pred taper with one more day of 40mg, and then 3 days of 20mg, then was told to stop all Prednisone. Pulm recommended that she not continue chronic prednisone use. In addition, she was told to stop her Incruse inhaler and was started on Anoro 1 puff qAM daily. Otherwise, no medication changes. Pharmacy was consulted during stay to manage elevated sugars which was attributed to Steroid use. More detailed progress note below from day Acute on chronic respiratory failure/COPD exacerbation/superimposed pneumonia on pulmonary fibrosis -Admit to monitored bed. -Zosyn 3.375 mg IV every 8 hours. -Levofloxacin 500 mg IV daily. -Xopenex nebulizers every 6 hours. 05/20 Atrovent nebs discontinued and started on tiotropium 1 puff qAM. -Pulmicort Respules 0.5 mg inhaled twice daily. -Methylprednisolone 20 mg IV every 8 hours transitioned to Prednisone 40mg PO on 05/21; she will continue pred 40mg for a total of 3 days, then decrease to Pred 20mg for 2 days, then discontinue prednisone per Pulm -Continue heated high flow nasal cannula oxygen, taper to her baseline 3-3.5 liters nasal cannula O2 as symptoms improve. -Pt requiring hi-flow 40%, consulted pulmonology. Sees Dr. Cole as outpt. -Lactate of 6.1 on admission, repeat 4.8; 05/20 repeat was 3.1 -Procal 05/20 4.57, continue abx treated -Hold home prednisone and discontinue home pred on discharge and Incruse Ellipta. Start on Anoro; needs two more doses of Levaquin 750mg q48hrs starting 05/23 for a total treatment of 7 days. -Pulmonary toilet -Influenza negative -currently on baseline 4L NC -05/[address] non-con ordered today to help with diagnosis of lung pathology: 1. Severe emphysema. Basilar predominant morphology could suggest underlying alpha-1 antitrypsin deficiency or primary ciliary dyskinesia. 2. Significant interval decrease in peribronchovascular consolidation throughout the left lung. Stable background bronchiectasis and left basilar cicatrizing atelectasis. 3. Resolution of prior nodular infiltrates in the right lung. 4. Mild patchy groundglass infiltrates in the right lower lobe new from prior, possibly developing pneumonia or mild pneumonitis. 5. Solid 3 mm right upper lobe nodules stable from prior. No new nodule. 6. Evidence of prior asbestos exposure with chronic pleural disease. 7. Possible liver fibrosis. Atrial fibrillation and flutter/hypertension -Continue diltiazem extended release 300 mg daily. -Continue warfarin at current dosing, INR slightly sub therapeutic at 1.9, and check INR daily. Diabetes mellitus type 2, uncontrolled -Hold metformin. -Placed on Accu-Cheks before meals and at bedtime with NovoLog coverage per scale. -A1c 05/19 6.4 -Pharmacy consulted for hyperglycemic management in setting of Prednisone; has had elevated POC with readings in high 200s-mid 300s Hyperlipidemia -Continue niacin, fish oil Code: Full per discussion. (Patient previously DNR but OK for intubation.) Clarified pt wishes on 05/20/19. DVTP: warfarin FEN/GI: carb consistent Dispo: Home back on home oxygen. (2) Dyspnea: (3) Hypoxia: (4) COPD exacerbation: (5) Hyperlipidemia: (6) Anemia: (7) Respiratory failure: (8) Osteopenia: (9) Hypertension: (10) Anxiety: (11) Atrial fibrillation and flutter: (12) Diabetes mellitus type 2, uncontrolled: Total Time Total Time Spent Total Time Spent (In Minutes): Less than 30 Discharge Plan Discharge Items Patient Disposition: Home - Home Health Services Reason For Visit: ACUTE ON CHRONIC RESPIRATORY FAILURE WITH HYPOXIA Discharge Diagnosis: Acute on Chronic Respiratory Failure with Hypoxia Activity: Per Instructions section Non-emergency contact: Primary Care Provider Call non-emergency contact if: you have any medication questions, your symptoms worsen and you have a fever Follow-up/Referrals: Matias Ram III, MD [Primary Care Provider] - 05/28/19 11:00 am (Hospital follow up schedule for 05/28/19 at 11:00am with Angie Jeronimo PA-C, at the [place] office) Diet: Heart Healthy [facility] Attending Provider Instructions: You were admitted for Acute on Chronic Respiratory Failure requiring an increase in an oxygen requirement from your normal baseline of 4L. The plan for discharge to is: - Continue Prednisone 40mg PO for one more day; then will take Prednisone 20mg daily for two days; then will stop taking Prednisone. - Start a new inhaler called Anoro - Continue with antibiotic Levaquin 750mg, take one pill every 48 hours, for 2 doses (since you received a dose today, take your next dose Wednesday 05/24, then take your last dose on Friday 05/26). Continue with your other medication changes. Please watch your blood sugars as you are still on Prednisone for a total of 3 more days after today. Prednisone can increase your blood sugars. Please stay well hydrated and drink plenty of clear fluids. If you have any symptoms that are concerning for you, please contact your Primary Care Physician's office/seek medical attention/return to [facility] Emergency Department/call 911. Please follow up with your Primary Care Physician for hospital follow up. An appointment has been made for your convenience on 05/28/2019 at 11:00am with Dr. Ram. Pending Studies at Discharge: No Stand-Alone Forms: My [facility], Smoking Cessation Medications and DC Order Prescriptions: New prednisone 20 mg Tablet 40 mg PO QAM Qty: 4 RF: 0 levofloxacin [Levaquin] 750 mg tablet 750 mg PO Q48H 2 Days Qty: 2 RF: 0 Anoro Ellipta 62.5-25 mcg/actuation blister with device 1 puffs INH DAILY Qty: 14 RF: 0 Continued warfarin 1 mg tablet 2 mg PO [id number] RF: 0 diltiazem HCl 300 mg capsule,extended release 24hr 300 mg PO QAM Qty: 90 RF: 3 niacin 500 mg tablet extended release 24 hr 500 mg PO BID Qty: 180 RF: 3 cranberry conc-ascorbic acid 4,200-20 mg Capsule 1 cap PO QAM RF: 0 [place]-3 Fish Oil 300-1,000 mg Capsule 1 cap PO QAM RF: 0 cyanocobalamin (vitamin B-12) 1,000 mcg Capsule 0 mcg PO DAILY RF: 0 metformin 500 mg tablet 500 mg PO BID RF: 0 cholecalciferol (vitamin D3) [Vitamin D3] 1,000 unit Tablet 1,000 unit PO QAM RF: 0 Discontinued prednisone 10 mg tablet 10 mg PO DAILY Qty: 90 RF: 3 Incruse Ellipta 62.5 mcg/actuation blister with device 1 inh inhalation DAILY RF: 0 Discharge Orders: Discharge Order (Routine); Ordered 05/23/19 Ordered By: Zbigniew Vences Admission Data Admit Date/Time: 05/19/19 22:10 Attending Provider: Raj Guajardo Admit Provider: Campos Contreras Primary Care Provider: Matias Ram III Other Providers: Campos Contreras ; Renny Valero ; Willi Haro Other Interventions: Discharge Summary Assessment (RN) Last Done: 05/23/19 14:27 DC Date/Time DO NOT enter until pt leaves facility: 05/23/19 15:00 Supervising Physician Co-Signing Physician Notes I personally examined the patient and verified all mondragon points of history and exam, discussed case, and agree with decision making with Dr Vences. Feeling better and would like to go home. Answered all questions to the best my ability. Patient and expressed good understanding. Vitals noted, in general she is awake and alert pleasant no distress. HEENT normocephalic atraumatic mucous membranes moist. Breathing unlabored no accessory muscle use good effort. Skin shows no rashes no pallor or icterus. COPD exacerbation/pneumoniastable for home. Finish out course of antibioticsshe is now 5 days into a course of Levaquin, so we will complete a course with this. Cautioned in regards to tendinopathy/tendinitis/tendon rupture risk. Course of steroids. Anticholinergic/long-acting beta agonist scheduled, albuterol as needed. Stable for home otherwise as above. Resident Activity Tracking Resident Involvement: Resident Care Provided Care Provided: Adult Hospital Medicine
[2019-05-23] MEDS ORDERED: INSULIN ASPART 100 UNITS/ML 3 ML PEN SC SCH (16:30)
--- NOTE | 2019-05-23 18:11 | Billing Data ---
Date of Service May 23, 2019 Coding Level of Care Code D/C Day Management <30 mins
[2019-05-24] MEDS ORDERED: INSULIN ASPART 100 UNITS/ML 3 ML PEN SC SCH (07:30)
== END 2019-05-23 15:00 | disposition home health service (06) | DRG 189 ==
LOC: ED 18:44 → SUATTDRO 22:10 → 2S 22:10 → 2N 05-22 09:14

== ENCOUNTER 2020-03-22 17:25 | Inpatient (IN) ==
[2020-03-22] MEDS ORDERED: ALBUT/IPRATROP 3MG/0.5MG NEB 3 ML VIAL INH STA (17:50)
[2020-03-22] MEDS ORDERED: DEXAMETHASONE SOD INJ 10 MG/ML VIAL IV ONE (17:50)
[2020-03-22] MEDS ORDERED: SODIUM CHLORIDE 0.9% 500 ML IV SCH (18:00)
--- NOTE | 2020-03-22 18:00 | Emergency Department Note ---
History of Present Illness General Chief complaint: Cough Stated complaint: copd, mucus in lungs, cough, sob Time Seen by Provider: 03/22/20 17:40 Source: family Mode of arrival: EMS Limitations: altered mental status History of Present Illness Provider complaint: Shortness of breath This is an 80-year-old female who has a history of COPD as well as paroxysmal A. fib and is on warfarin chronically presents to the ED for evaluation. The is the primary history provider. The patient's reports that the patient has been lifeless for the past couple of days. She has had increased shortness of breath and lung congestion. She is normally on 4 L of oxygen at home. He states that normally she is able to get out around the house without assistance but over the past couple days has not been able to get out of bed. The patient is very sluggish. She is normally able to carry on a conversation but for the past couple of days has not been able to do so. He has no additional history at this time. Patient is unable to provide any history based on her severe weakness. When I ask her any questions, she just states no. Home Medications Medication Instructions Recorded Confirmed Type cholecalciferol (vitamin D3) 1,000 unit PO QAM 08/21/18 03/22/20 History [Vitamin D3] [place]-3 Fish Oil 1 cap PO QAM 05/19/19 03/22/20 History cyanocobalamin (vitamin B-12) 0 mcg PO QAM 05/19/19 03/22/20 History blood sugar diagnostic #50 ea 05/28/19 03/12/20 Rx metformin 500 mg tablet 500 mg PO BID #180 tab 07/11/19 03/22/20 Rx lancets 33 gauge #100 ea 08/10/19 03/12/20 Rx Flutter Valve #1 ea 08/28/19 03/12/20 Rx risedronate 35 mg tablet 35 mg PO WK #4 tab 09/26/19 03/22/20 Rx diltiazem HCl 300 mg 300 mg PO QAM #90 cap 11/12/19 03/22/20 Rx capsule,extended release 24 hr niacin 500 mg tablet,extended 500 mg PO BID #180 tab 11/12/19 03/22/20 Rx release 24 hr albuterol sulfate 90 mcg/actuation 2 puff INH Q6H PRN #18 gm 12/14/19 03/22/20 Rx aerosol inhaler ipratropium 0.5 mg-albuterol 3 mg 3 ml INH Q8H PRN #180 ml 12/14/19 03/22/20 Rx (2.5 mg base)/3 mL nebulization soln multivitamin 1 tab PO QAM 03/12/20 03/22/20 History warfarin 1 mg tablet See Rx Instructions PO DAILY tab 03/12/20 03/22/20 History ogiutaxzeac-vwplrgvpq-sgbqvczp 1 inh INHALATION QAM 03/22/20 03/22/20 History [Trelegy Ellipta] magnesium oxide 250 mg PO QAM 03/22/20 03/22/20 History Allergies Allergy/AdvReac Type Severity Reaction Status Date / Time Ygphbjq-Jdf-Wnb Reductase Allergy Unknown Verified 03/22/20 19:06 Inhibitor Past Med/Surg History Medical History Acute and chronic respiratory failure with hypercapnia Anemia Chronic obstructive pulmonary disease COPD exacerbation Falls frequently Fatty liver Heart murmur HTN (hypertension) Hyperlipidemia Hypoxia Impaired fasting glucose Influenza vaccine needed Insomnia Internal hemorrhoids RAUL (mycobacterium avium-intracellulare) infection Osteopenia Other specified disorders of bone density and structure, other site Pleural effusion on left PNA (pneumonia) (06/20/13) Pneumonia Respiratory distress (06/20/13) Respiratory failure Sepsis Shortness of breath Tubular adenoma of colon Type 2 diabetes mellitus Surgical History H/O colonoscopy (~04/30/15) History of ankle surgery Left ankle approx 2016 Family History Father Myocardial infarction Sister Aneurysm of abdominal aorta Cerebral aneurysm Emphysema lung Mother Emphysema lung Tobacco abuse Son Diabetes Denies family history of Ovarian cancer Prostate cancer Breast cancer Colorectal cancer Social History Smoking Status: Former smoker Tobacco Type: Cigarettes Age Started Using Tobacco: 23; Age Quit Using Tobacco: 60; Cigarettes Per Day: has approx 40 pack year history; Second Hand Exposure: No; Hx Alcohol Use: No Hx Substance Use: No Preferred Language: Wallisian Communication Ability: Effective Visual Impairment: No Limitations Hearing Ability: Normal Packaging Tech Required: No Beliefs That Will Affect Care: None marital status: Current Living Situation: Spouse current occupational status: retired 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 Safe at Home: Yes Childhood Exposure to Second-Hand Smoke: Yes (Mother) Dental Care, Regularly: No Physical Activity Frequency: Does not Exercise Seatbelt Use: always Sunscreen Use: Yes Assistive Devices: BiPap and Oxygen - Continuous Review of Systems Unobtainable due to cognitive status Physical Exam Vital Signs Vital Signs - 24 hr 03/22/20 17:26 03/22/20 18:23 03/22/20 18:49 Temperature 36.7 C Temperature Source Temporal Artery Scan Pulse Rate 127 H 122 H Pulse Rate [Right Apical] 114 H Pulse Rate from SpO2 Sensor Respiratory Rate 32 H 34 H 22 Respiratory Effort / Characteristics Spontaneous Short of Breath Blood Pressure 154/70 H Blood Pressure Mean 98 Pulse Oximetry 91 95 94 Oxygen Delivery Method Nasal Cannula Other Oxymask Oxygen Flow Rate 4 5 5 Sepsis Recent Fever Within 48 Hours No Sepsis New/Unexplained Change in Mental Status N/A Sepsis Action Taken by Nursing No Action Required 03/22/20 19:00 Temperature Temperature Source Pulse Rate 113 H Pulse Rate [Right Apical] Pulse Rate from SpO2 Sensor 114 H Respiratory Rate 32 H Respiratory Effort / Characteristics Blood Pressure 160/72 H Blood Pressure Mean 103 Pulse Oximetry 99 Oxygen Delivery Method Nebulizer Oxygen Flow Rate Sepsis Recent Fever Within 48 Hours Sepsis New/Unexplained Change in Mental Status Sepsis Action Taken by Nursing CONSTITUTIONAL/VITAL SIGNS: Reviewed / noted above. GENERAL: Chronically ill-appearing. INTEGUMENTARY: Warm, dry, and [place]. HEAD: Normocephalic. EYES: without scleral icterus or trauma. ENT/OROPHARYNX: The patient's states that he has been clearing mucus from her mouth. LYMPHADENOPATHY/NECK: Is supple without lymphadenopathy or meningismus. RESPIRATORY: Lungs diminished with crackles bilaterally CARDIOVASCULAR: Tachycardic rate and irregular rhythm. GI/ABDOMEN: Soft and nontender. EXTREMITIES: Warm and well perfused. NEUROLOGICAL: The patient responds no to all questions. She seems severely weak. She cannot even sit up in bed. Breathing appears to be shallow. PSYCHIATRIC: normal affect. MUSCULOSKELETAL: Normally developed for age with poor muscle tone. TRIAGE NURSING DOCUMENTATION REVIEWED. Procedures ABG Interpretation ABG Interpretation 1: ABG Results: 7.3 Interpretation: abnormal and respiratory acidosis Course Administered Medications Discontinued Medications Albuterol (Albut/Ipratrop 3mg/0.5mg Neb 3 Ml Vial) 12 ml INH ONE STA Stop: 03/22/20 17:51 Last Admin: 03/22/20 18:45 Dose: 12 ml Documented by: [id number] Dexamethasone (Dexamethasone Sod Inj 10 Mg/Ml Vial) 10 mg IV NOW ONE Stop: 03/22/20 17:51 Last Admin: 03/22/20 18:30 Dose: 10 mg Documented by: [id number] Sodium Chloride (Nss) 500 mls @ 999 mls/hr IV .Q31M KEV Stop: 03/22/20 18:30 Last Infusion: 03/22/20 19:17 Dose: 0 mls/hr Documented by: [id number] Admin: 03/22/20 18:30 Dose: 999 mls/hr Documented by: [id number] Medical Decision Making Differential Diagnosis Medical decision shortness of Medical Records Attestation: I reviewed the patient's medical records. Home Medications Current Medication List: was personally reviewed by me Laboratory Data Attestation: I reviewed the patient's lab results. Result diagrams: 03/22/20 18:55 03/22/20 18:55 Lab Results 03/22/20 03/22/20 03/22/20 Range/Units 18:26 18:31 18:31 WBC (4.8-10.8) K/uL RBC (4.2-5.4) M/uL Hgb (12.0-16.0) g/dL Hct (37-47) % MCV (80-100) fL MCH (25-34) pg MCHC (32-36) g/dL RDW Std Deviation (36.4-46.3) fL RDW Coeff of Nataly (11.5-14.5) % Plt Count (130-400) K/uL MPV (7.4-10.4) fL Immature Gran % (Auto) % Neut % (Auto) % Lymph % (Auto) % [place] % (Auto) % Eos % (Auto) % Baso % (Auto) % Neut # (Auto) (1.4-6.5) K/uL Lymph # (Auto) (1.2-3.4) K/uL [place] # (Auto) (0.11-0.59) K/uL Eos # (Auto) (0-0.5) K/uL Baso # (Auto) (0-0.2) K/uL Immature Gran # (Auto) (0.00-0.02) K/uL PT (9.0-12.0) Seconds INR (0.9-1.1) APTT (21.0-31.0) Seconds PTT Ratio ABG pH (7.35-7.45) ABG pCO2 (35-46) mmHg ABG pO2 (80-95) mmHg ABG HCO3 (19-24) mmol/L ABG O2 Saturation (90-95) % ABG Base Excess (-9-1.8) mEq/L Marques Test (Pos) Barometric Pressure mm/Hg Oxygen Given Sodium (136-145) mmol/L Potassium (3.5-5.1) mmol/L Chloride (98-107) mmol/L Carbon Dioxide (21-32) mmol/L Anion Gap (3-11) BUN (7-18) mg/dl Creatinine (0.6-1.2) mg/dl Est Cr Clr Drug Dosing ml/min Est GFR ( Amer) Est GFR (Non-Af Amer) BUN/Creatinine Ratio (10-20) Glucose (70-99) mg/dl Lactate (0.4-2.0) mmol/L Calcium (8.5-10.1) mg/dl Total Bilirubin (0.2-1) mg/dl AST (15-37) U/L ALT (12-78) U/L Alkaline Phosphatase (45-117) U/L Troponin I (0-0.045) ng/ml NT-Pro-B Natriuret Pep (0-1800) pg/ml Total Protein (6.4-8.2) gm/dl Albumin (3.4-5.0) gm/dl Globulin (2.5-4.0) gm/dl Albumin/Globulin Ratio (0.9-2) COVID-19 Eval [facility] Influ A Molecular Assay Negative (Negative) Influ B Molecular Assay Negative (Negative) SARS-CoV-2, RNA, NAAT NEGATIVE (NEGATIVE) 03/22/20 03/22/20 03/22/20 Range/Units 18:55 18:55 18:55 WBC 9.02 (4.8-10.8) K/uL RBC 3.23 L (4.2-5.4) M/uL Hgb 9.3 L (12.0-16.0) g/dL Hct 32.4 L (37-47) % MCV 100.3 H (80-100) fL MCH 28.8 (25-34) pg MCHC 28.7 L (32-36) g/dL RDW Std Deviation 49.6 H (36.4-46.3) fL RDW Coeff of Nataly 13.5 (11.5-14.5) % Plt Count 288 (130-400) K/uL MPV 8.6 (7.4-10.4) fL Immature Gran % (Auto) 0.1 % Neut % (Auto) 76.6 % Lymph % (Auto) 17.2 % [place] % (Auto) 5.1 % Eos % (Auto) 0.9 % Baso % (Auto) 0.1 % Neut # (Auto) 6.91 H (1.4-6.5) K/uL Lymph # (Auto) 1.55 (1.2-3.4) K/uL [place] # (Auto) 0.46 (0.11-0.59) K/uL Eos # (Auto) 0.08 (0-0.5) K/uL Baso # (Auto) 0.01 (0-0.2) K/uL Immature Gran # (Auto) 0.01 (0.00-0.02) K/uL PT (9.0-12.0) Seconds INR (0.9-1.1) APTT (21.0-31.0) Seconds PTT Ratio ABG pH 7.32 L (7.35-7.45) ABG pCO2 89 H (35-46) mmHg ABG pO2 96 H (80-95) mmHg ABG HCO3 45 H (19-24) mmol/L ABG O2 Saturation 96.0 H (90-95) % ABG Base Excess 15.7 H (-9-1.8) mEq/L Marques Test Pos (Pos) Barometric Pressure 733.1 mm/Hg Oxygen Given 4 Sodium 141 (136-145) mmol/L Potassium 4.5 (3.5-5.1) mmol/L Chloride 94 L (98-107) mmol/L Carbon Dioxide 47 H* (21-32) mmol/L Anion Gap 0 L (3-11) BUN 25 H (7-18) mg/dl Creatinine 1.17 (0.6-1.2) mg/dl Est Cr Clr Drug Dosing 28.9 ml/min Est GFR ( Amer) 51.0 Est GFR (Non-Af Amer) 44.0 BUN/Creatinine Ratio 21.7 H (10-20) Glucose 112 H (70-99) mg/dl Lactate (0.4-2.0) mmol/L Calcium 9.7 (8.5-10.1) mg/dl Total Bilirubin 0.4 (0.2-1) mg/dl AST 32 (15-37) U/L ALT 29 (12-78) U/L Alkaline Phosphatase 232 H (45-117) U/L Troponin I 0.017 (0-0.045) ng/ml NT-Pro-B Natriuret Pep 1765 (0-1800) pg/ml Total Protein 8.2 (6.4-8.2) gm/dl Albumin 3.4 (3.4-5.0) gm/dl Globulin 4.8 H (2.5-4.0) gm/dl Albumin/Globulin Ratio 0.7 L (0.9-2) COVID-19 Eval Order Influ A Molecular Assay (Negative) Influ B Molecular Assay (Negative) SARS-CoV-2, RNA, NAAT (NEGATIVE) 03/22/20 03/22/20 Range/Units 18:55 18:55 WBC (4.8-10.8) K/uL RBC (4.2-5.4) M/uL Hgb (12.0-16.0) g/dL Hct (37-47) % MCV (80-100) fL MCH (25-34) pg MCHC (32-36) g/dL RDW Std Deviation (36.4-46.3) fL RDW Coeff of Nataly (11.5-14.5) % Plt Count (130-400) K/uL MPV (7.4-10.4) fL Immature Gran % (Auto) % Neut % (Auto) % Lymph % (Auto) % [place] % (Auto) % Eos % (Auto) % Baso % (Auto) % Neut # (Auto) (1.4-6.5) K/uL Lymph # (Auto) (1.2-3.4) K/uL [place] # (Auto) (0.11-0.59) K/uL Eos # (Auto) (0-0.5) K/uL Baso # (Auto) (0-0.2) K/uL Immature Gran # (Auto) (0.00-0.02) K/uL PT 18.9 H (9.0-12.0) Seconds INR 1.9 H (0.9-1.1) APTT 31.0 (21.0-31.0) Seconds PTT Ratio 1.1 ABG pH (7.35-7.45) ABG pCO2 (35-46) mmHg ABG pO2 (80-95) mmHg ABG HCO3 (19-24) mmol/L ABG O2 Saturation (90-95) % ABG Base Excess (-9-1.8) mEq/L Marques Test (Pos) Barometric Pressure mm/Hg Oxygen Given Sodium (136-145) mmol/L Potassium (3.5-5.1) mmol/L Chloride (98-107) mmol/L Carbon Dioxide (21-32) mmol/L Anion Gap (3-11) BUN (7-18) mg/dl Creatinine (0.6-1.2) mg/dl Est Cr Clr Drug Dosing ml/min Est GFR ( Amer) Est GFR (Non-Af Amer) BUN/Creatinine Ratio (10-20) Glucose (70-99) mg/dl Lactate 0.8 (0.4-2.0) mmol/L Calcium (8.5-10.1) mg/dl Total Bilirubin (0.2-1) mg/dl AST (15-37) U/L ALT (12-78) U/L Alkaline Phosphatase (45-117) U/L Troponin I (0-0.045) ng/ml NT-Pro-B Natriuret Pep (0-1800) pg/ml Total Protein (6.4-8.2) gm/dl Albumin (3.4-5.0) gm/dl Globulin (2.5-4.0) gm/dl Albumin/Globulin Ratio (0.9-2) COVID-19 Eval Order Influ A Molecular Assay (Negative) Influ B Molecular Assay (Negative) SARS-CoV-2, RNA, NAAT (NEGATIVE) Imaging Data Radiologist's Impression: Chest x-ray: IMPRESSION: 1. Cardiomegaly with evidence of congestive failure. 2. Advanced emphysema with postoperative change and volume loss from left-sided pulmonary resection. 3. Chronic fibrotic change at the left lung base is similar to previous. 4. Small pleural effusions. 5. Hazy interstitial airspace opacities likely represent mild pulmonary edema. Correlate clinically for evidence of a superimposed infectious/inflammatory pneumonitis. ECG Data Attestation: I personally reviewed and interpreted this ECG as follows: Indication: + weakness Rate (beats per minute): 123 Rhythm: + sinus rhythm ECG ST segments: no ST elevation ECG Findings: + PVCs MDM Narrative Patient presents to the ED with shortness of breath, decreased activity and like looseness according to the . She has had a significant decline over the past couple of days. She is chronically on 4 L of oxygen at home. History of COPD as well as A. fib with warfarin therapy. Blood pressure is elevated. Heart rate is tachycardic. Respiratory rate is tachycardic and shallow. Afebrile. Saturating 91% on 4 L. The patient's chest x-ray shows some congestive changes per radiology although inflammatory or infectious changes cannot be ruled out. This is not clinically clear. The patient did have an elevated blood pressure and tachycardia as well as tachypnea. She was empirically treated with Decadron, a 1 hour nebulizer treatment and IV normal saline 500 cc. She was empirically given some IV antibiotics. An ABG suggest respiratory failure with a PCO2 of 89 and a pH of 7.32. Her INR is 1.9. She is on Coumadin. Lactate was normal. Covid was negative, flu was negative. White blood cell count was normal. Hemoglobin is 9.3. Troponin was negative. BNP was 1765. The patient was started on BiPAP. She will be seen by the hospitalist for further inpatient evaluation and care. Impression & Plan Acute and chronic respiratory failure, Pneumonia Discharge Plan Visit Data Chief Complaint: Cough Stated Complaint: copd, mucus in lungs, cough, sob ED Provider: Newton Marsh Discharge Problem: Acute and chronic respiratory failure, Pneumonia Patient Disposition: Being Evaluated by Hospitalist Forms Stand Alone Forms: [facility] Prescriptions Prescriptions: No Action warfarin 1 mg tablet See Rx Instructions PO DAILY RF: 0 multivitamin Tablet 1 tab PO QAM RF: 0 metformin 500 mg tablet 500 mg PO BID Qty: 180 RF: 3 (DME) lancets [OneTouch Delica Lancets] 33 gauge misc See Rx Instructions .ROUTE .MEDSUPPLY Qty: 100 RF: 5 risedronate 35 mg tablet 35 mg PO WK Qty: 4 RF: 11 diltiazem HCl 300 mg capsule,extended release 24hr 300 mg PO QAM Qty: 90 RF: 3 niacin 500 mg tablet extended release 24 hr 500 mg PO BID Qty: 180 RF: 3 (DME) OneTouch Verio test strips Strip See Rx Instructions .ROUTE .MEDSUPPLY Qty: 50 RF: 5 (DME) Flutter Valve Device See Rx Instructions .ROUTE .MEDSUPPLY Qty: 1 RF: 0 albuterol sulfate 90 mcg/actuation HFA aerosol inhaler 2 puff INH Q6H PRN (Reason: Shortness Of Breath Or Wheezing) Qty: 18 RF: 2 ipratropium-albuterol 0.5 mg-3 mg(2.5 mg base)/3 mL solution for nebulization 3 ml INH Q8H PRN (Reason: shortness of breath or wheezing) Qty: 180 RF: 3 [place]-3 Fish Oil 300-1,000 mg Capsule 1 cap PO QAM RF: 0 cyanocobalamin (vitamin B-12) 1,000 mcg Capsule 0 mcg PO QAM RF: 0 cholecalciferol (vitamin D3) [Vitamin D3] 1,000 unit Tablet 1,000 unit PO QAM RF: 0 magnesium oxide 250 mg magnesium tablet 250 mg PO QAM RF: 0 Trelegy Ellipta 100-62.5-25 mcg blister with device 1 inh inhalation QAM RF: 0 Referrals Referrals: Matias Ram III, MD [Primary Care Provider] -
[2020-03-22 19:08] LABS: Allen Test Pos (Pos); Base Excess ABG 15.7 mEq/L (-9-1.8); HCO3 ABG 45 mmol/L (19-24); PCO2 ABG 89 mmHg (35-46); PO2 ABG 96 mmHg (80-95); pH ABG 7.32 (7.35-7.45)
[2020-03-22 19:16] LABS: INR 1.9 (0.9-1.1); Partial Thromboplastin Ratio 1.1; Prothrombin Time 18.9 Seconds (9.0-12.0)
--- NOTE | 2020-03-22 19:20 | XRay Report ---
SINGLE VIEW CHEST CLINICAL HISTORY: Dyspnea FINDINGS: 2 AP, portable, upright chest radiographs are compared to chest x-ray dated 05/19/2019. Elver elation is made with chest CT dated 05/21/2019. The examination is degraded by portable technique and p atient rotation. The heart is enlarged noting atherosclerotic calcification of the thoracic aorta. Th ere is pulmonary vascular congestion. Advanced emphysematous change and chronic interstitial thickeni ng are similar to previous. There is volume loss and postoperative change in the left lung, with fibr osis at the left lung base. Interstitial opacities are seen bilaterally. There are small pleural effu sions. No pneumothorax is seen. The skeletal structures are osteopenic. The bony thorax is grossly in tact. IMPRESSION: 1. Cardiomegaly with evidence of congestive failure. 2. Advanced emphysema with postoperative change and volume loss from left-sided pulmonary resection. 3. Chronic fibrotic change at the left lung base is similar to previous. 4. Small pleural effusions. 5. Hazy interstitial airspace opacities likely represent mild pulmonary edema. Correlate clinically f or evidence of a superimposed infectious/inflammatory pneumonitis. Electronically signed by: John Glass M.D. 03/22/2020 7:19 PM
[2020-03-22 19:21] LABS: Influenza A virus by PCR Negative (Negative); Influenza B virus by PCR Negative (Negative)
[2020-03-22 19:33] LABS: Albumin Globulin Ratio 0.7 (0.9-2); Albumin Level 3.4 gm/dl (3.4-5.0); BUN Creatinine Ratio 21.7 (10-20); Bilirubin,Total 0.4 mg/dl (0.2-1); Calcium 9.7 mg/dl (8.5-10.1); Creatinine Clr Calc Pharmacy 28.9 ml/min; Globulin 4.8 gm/dl (2.5-4.0); Potassium 4.5 mmol/L (3.5-5.1); Total Protein 8.2 gm/dl (6.4-8.2); Troponin I 0.017 ng/ml (0-0.045)
[2020-03-22 19:37] LABS: Hematocrit (blood only) 32.4 % (37-47); Hemoglobin 9.3 g/dL (12.0-16.0); Mean Corpuscular Hemoglobin 28.8 pg (25-34); Mean Corpuscular Hgb Conc 28.7 g/dL (32-36); Mean Corpuscular Volume 100.3 fL (80-100); Mean Platelet Volume 8.6 fL (7.4-10.4); Platelet Count 288 K/uL (130-400); RDW Coefficient of Variation 13.5 % (11.5-14.5); RDW Standard Deviation 49.6 fL (36.4-46.3); Red Blood Count 3.23 M/uL (4.2-5.4); White Blood Count 9.02 K/uL (4.8-10.8)
[2020-03-22 19:39] LABS: Basophils # (auto) 0.01 K/uL (0-0.2); Basophils % (auto) 0.1 %; Eosinophils # (auto) 0.08 K/uL (0-0.5); Eosinophils % (auto) 0.9 %; Immature Granulocytes # (auto) 0.01 K/uL (0.00-0.02); Immature Granulocytes % (auto) 0.1 %; Lymphocytes # (auto) 1.55 K/uL (1.2-3.4); Lymphocytes % (auto) 17.2 %; Monocytes # (auto) 0.46 K/uL (0.11-0.59); Monocytes % (auto) 5.1 %; Neutrophils # (auto) 6.91 K/uL (1.4-6.5); Neutrophils % (auto) 76.6 %
[2020-03-22] MEDS ORDERED: CEFEPIME 2,000 MG/20 ML VIAL IV STA (20:01)
[2020-03-22] MEDS ORDERED: FUROSEMIDE 20 MG in SYRINGE 0 ML IV ONE (20:45)
--- NOTE | 2020-03-22 20:48 | History & Physical Report ---
Date of Service March 22, 2020 Assessment & Plan (1) Acute and chronic respiratory failure: 80yo female with very severe COPD (FVC 0.81 L, 30%, FEV1 0.41 L, 21%, FEV1/FVC 51%) presenting with acute on chronic hypoxic hypercapnic respiratory failure. Patient has been declining over the last several days. Her states that she has been "lifeless" today. She uses home noninvasive ventilator - NIMV settings should be AVAPS-AE; Breath rate: auto; Inspiratory time:auto; Sigh: off; Tidal Volume: 350-450, PS min: 4- 10 PS max: 12-20; EPAP min: 6-10; EPAP max: 10-16; AVAPS rate: 14 during sleep and as needed ABG on BiPAP with acute on chronic respiratory failure. Repeat on Oxymask 4L showed some worsening Covid-19 test performed in ER NEGATIVE as well as negative Influenza A and B -Admit to PCU -Will speak to respiratory re: NIMV at above settings -Goal oxygen saturations 88 - 92% -Check Procalcitonin -DuoNebs q 4 hours -Albuterol q 2 hours as needed -Solumedrol 30mg IV TID -Continue Fluticasone -Continue Umeclidinium/Vilanterol -Azithromycin -Flutter valve Present on Admission?: Yes (2) Paroxysmal atrial fibrillation: Patient with history of paroxysmal atrial fibrillation on diltiazem and anticoagulated with Coumadin. Subtherapeutic INR presently at 1.9. She follows regularly with anticoagulation clinic - last seen on 03/12/20. INR has been labile in setting of changing nutritional intake. -Continue current Coumadin dosing - 1mg on Tuesday/Tuesday and 2mg on Tuesday/Tuesday//Tuesday/Tuesday -INR daily -Continue Diltiazem 300mg po qAM -Telemetry monitoring Present on Admission?: Yes (3) Diabetes type 2, controlled: DM on oral agents - last [id number]=0.6 on 10/12/19 -Hold Metformin -Lantus 5u BID with ISS Present on Admission?: Yes (4) Hypertension: Blood pressure stable -Continue diltiazem as above -Monitor F/E/N - Lasix 20mg IV given in ER, monitor electrolytes and replete as needed, CC/Heart healthy diet as tolerated with aspiration precautions Ppx - On Coumadin as above Code - DNR/DNI Dispo - Admit to PCU Present on Admission?: Yes History of Present Illness Chief Complaint: weakness, fatigue Primary Care Provider: Matias Ram MD Joyce Mcclendon is an 80yo C female with history of COPD on home O2 2-4L, HTN, HLP, DM presenting from home with 2 days of functional decline. Her is at bedside and states that she has been somnolent and "lifeless" today. She has not been eating or drinking well at home. She denies fevers, chills, chest pain, vomiting, diarrhea. She has a slight cough with sputum. No additional complaints at this time. On arrival to the ER patient afebrile, tachycardic at 127, mildly hypertensive, tachypneic and saturating 91% on 4L. She was weak and minimally responsive and was started on BiPAP. ABG on 02/08, 50% was 7.32//96 ER Course: Lasix 20mg, Cefepime 2gm, ALbuterol 12mL neb, Dexamethasone 10mg IV, NSS x 500 Allergies Allergy/AdvReac Type Severity Reaction Status Date / Time Hbgrrau-Hdn-Rzx Reductase Allergy Unknown Verified 03/22/20 19:06 Inhibitor Home Medications Medication Instructions Recorded Confirmed Type cholecalciferol (vitamin D3) 1,000 unit PO QAM 08/21/18 03/22/20 History [Vitamin D3] [place]-3 Fish Oil 1 cap PO QAM 05/19/19 03/22/20 History cyanocobalamin (vitamin B-12) 0 mcg PO QAM 05/19/19 03/22/20 History blood sugar diagnostic #50 ea 05/28/19 03/12/20 Rx metformin 500 mg tablet 500 mg PO BID #180 tab 07/11/19 03/22/20 Rx lancets 33 gauge #100 ea 08/10/19 03/12/20 Rx Flutter Valve #1 ea 08/28/19 03/12/20 Rx risedronate 35 mg tablet 35 mg PO WK #4 tab 09/26/19 03/22/20 Rx diltiazem HCl 300 mg 300 mg PO QAM #90 cap 11/12/19 03/22/20 Rx capsule,extended release 24 hr niacin 500 mg tablet,extended 500 mg PO BID #180 tab 11/12/19 03/22/20 Rx release 24 hr albuterol sulfate 90 mcg/actuation 2 puff INH Q6H PRN #18 gm 12/14/19 03/22/20 Rx aerosol inhaler ipratropium 0.5 mg-albuterol 3 mg 3 ml INH Q8H PRN #180 ml 12/14/19 03/22/20 Rx (2.5 mg base)/3 mL nebulization soln multivitamin 1 tab PO QAM 03/12/20 03/22/20 History warfarin 1 mg tablet See Rx Instructions PO DAILY tab 03/12/20 03/22/20 History vmkttjhymua-keedbguhh-ralteekn 1 inh INHALATION QAM 03/22/20 03/22/20 History [Trelegy Ellipta] magnesium oxide 250 mg PO QAM 03/22/20 03/22/20 History Past Med/Surg History Medical History (Updated 03/23/20 @ 00:20 by Bel Peña DO) Acute and chronic respiratory failure with hypercapnia Anemia Chronic obstructive pulmonary disease COPD exacerbation Falls frequently Fatty liver Heart murmur HTN (hypertension) Hyperlipidemia Hypoxia Impaired fasting glucose Influenza vaccine needed Insomnia Internal hemorrhoids RAUL (mycobacterium avium-intracellulare) infection Osteopenia Other specified disorders of bone density and structure, other site Paroxysmal atrial fibrillation Pleural effusion on left PNA (pneumonia) (06/20/13) Pneumonia Respiratory distress (06/20/13) Respiratory failure Sepsis Shortness of breath Tubular adenoma of colon Type 2 diabetes mellitus Surgical History H/O colonoscopy (~04/30/15) History of ankle surgery Left ankle approx 2016 Family History Father Myocardial infarction Sister Aneurysm of abdominal aorta Cerebral aneurysm Emphysema lung Mother Emphysema lung Tobacco abuse Son Diabetes Denies family history of Ovarian cancer Prostate cancer Breast cancer Colorectal cancer Social History Smoking Status: Unknown if ever smoked Tobacco Type: Cigarettes Age Started Using Tobacco: 23; Age Quit Using Tobacco: 60; Cigarettes Per Day: has approx 40 pack year history; Second Hand Exposure: No; Preferred Language: Nigerian Communication Ability: Effective Visual Impairment: No Limitations Hearing Ability: Normal Bookkeeping Clerk Required: No Beliefs That Will Affect Care: None marital status: Current Living Situation: Spouse current occupational status: retired 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 Patient awake and alert, oriented only to self, answering questions appropriately Skin: warm, dry, intact, no rashes or lesions HEENT: NC/AT, PERRL, EOMI, anicteric sclera, conjunctiva without injection, external ear normal to inspection and nontender, nares patent, moist mucus membranes, dentition intact, no oropharyngeal lesions, neck supple, trachea midline, no LAD, no thyromegaly, no JVD Heart: +S1/S2, regular, tachycardic, no m/r/g Lungs: diminished breath sounds with crackles to mid lung, no rhonchi, faint end-expiratory wheezing Abd: +BS, soft, NT/ND, no masses/organomegaly/ascites Ext: warm, 2+ pulses in UE/LE bilaterally, no clubbing/cyanosis or edema Neuro: nonfocal, speech intact, no facial droop, moving all extremities on command with equal strength 5/5 Results & Data Results & Data ([facility]) Vital Signs (Past 12 Hours) Vital Signs Temp Pulse Pulse Resp BP Pulse Ox 03/22/20 19:57 121 H 33 H 93 03/22/20 19:30 113 H 34 H 153/67 H 96 03/22/20 19:00 113 H 32 H 160/72 H 99 03/22/20 18:49 114 H 22 94 03/22/20 18:23 122 H 34 H 95 03/22/20 17:26 36.7 C 127 H 32 H 154/70 H 91 Laboratory Results Lab Results 03/22/20 03/22/20 03/22/20 Range/Units 18:26 18:31 18:31 WBC (4.8-10.8) K/uL RBC (4.2-5.4) M/uL Hgb (12.0-16.0) g/dL Hct (37-47) % MCV (80-100) fL MCH (25-34) pg MCHC (32-36) g/dL RDW Std Deviation (36.4-46.3) fL RDW Coeff of Nataly (11.5-14.5) % Plt Count (130-400) K/uL MPV (7.4-10.4) fL Immature Gran % (Auto) % Neut % (Auto) % Lymph % (Auto) % [place] % (Auto) % Eos % (Auto) % Baso % (Auto) % Neut # (Auto) (1.4-6.5) K/uL Lymph # (Auto) (1.2-3.4) K/uL [place] # (Auto) (0.11-0.59) K/uL Eos # (Auto) (0-0.5) K/uL Baso # (Auto) (0-0.2) K/uL Immature Gran # (Auto) (0.00-0.02) K/uL PT (9.0-12.0) Seconds INR (0.9-1.1) APTT (21.0-31.0) Seconds PTT Ratio ABG pH (7.35-7.45) ABG pCO2 (35-46) mmHg ABG pO2 (80-95) mmHg ABG HCO3 (19-24) mmol/L ABG O2 Saturation (90-95) % ABG Base Excess (-9-1.8) mEq/L Marques Test (Pos) Barometric Pressure mm/Hg Oxygen Given Sodium (136-145) mmol/L Potassium (3.5-5.1) mmol/L Chloride (98-107) mmol/L Carbon Dioxide (21-32) mmol/L Anion Gap (3-11) BUN (7-18) mg/dl Creatinine (0.6-1.2) mg/dl Est Cr Clr Drug Dosing ml/min Est GFR ( Amer) Est GFR (Non-Af Amer) BUN/Creatinine Ratio (10-20) Glucose (70-99) mg/dl POC Glucose (70-99) mg/dl Lactate (0.4-2.0) mmol/L Calcium (8.5-10.1) mg/dl Phosphorus (2.5-4.9) mg/dl Magnesium (1.8-2.4) mg/dl Total Bilirubin (0.2-1) mg/dl AST (15-37) U/L ALT (12-78) U/L Alkaline Phosphatase (45-117) U/L Troponin I (0-0.045) ng/ml NT-Pro-B Natriuret Pep (0-1800) pg/ml Total Protein (6.4-8.2) gm/dl Albumin (3.4-5.0) gm/dl Globulin (2.5-4.0) gm/dl Albumin/Globulin Ratio (0.9-2) COVID-19 Eval [facility] A Molecular Assay Negative (Negative) Influ B Molecular Assay Negative (Negative) SARS-CoV-2, RNA, NAAT NEGATIVE (NEGATIVE) 03/22/20 03/22/20 03/22/20 Range/Units 18:55 18:55 18:55 WBC 9.02 (4.8-10.8) K/uL RBC 3.23 L (4.2-5.4) M/uL Hgb 9.3 L (12.0-16.0) g/dL Hct 32.4 L (37-47) % MCV 100.3 H (80-100) fL MCH 28.8 (25-34) pg MCHC 28.7 L (32-36) g/dL RDW Std Deviation 49.6 H (36.4-46.3) fL RDW Coeff of Nataly 13.5 (11.5-14.5) % Plt Count 288 (130-400) K/uL MPV 8.6 (7.4-10.4) fL Immature Gran % (Auto) 0.1 % Neut % (Auto) 76.6 % Lymph % (Auto) 17.2 % [place] % (Auto) 5.1 % Eos % (Auto) 0.9 % Baso % (Auto) 0.1 % Neut # (Auto) 6.91 H (1.4-6.5) K/uL Lymph # (Auto) 1.55 (1.2-3.4) K/uL [place] # (Auto) 0.46 (0.11-0.59) K/uL Eos # (Auto) 0.08 (0-0.5) K/uL Baso # (Auto) 0.01 (0-0.2) K/uL Immature Gran # (Auto) 0.01 (0.00-0.02) K/uL PT (9.0-12.0) Seconds INR (0.9-1.1) APTT (21.0-31.0) Seconds PTT Ratio ABG pH 7.32 L (7.35-7.45) ABG pCO2 89 H (35-46) mmHg ABG pO2 96 H (80-95) mmHg ABG HCO3 45 H (19-24) mmol/L ABG O2 Saturation 96.0 H (90-95) % ABG Base Excess 15.7 H (-9-1.8) mEq/L Marques Test Pos (Pos) Barometric Pressure 733.1 mm/Hg Oxygen Given 4 Sodium 141 (136-145) mmol/L Potassium 4.5 (3.5-5.1) mmol/L Chloride 94 L (98-107) mmol/L Carbon Dioxide 47 H* (21-32) mmol/L Anion Gap 0 L (3-11) BUN 25 H (7-18) mg/dl Creatinine 1.17 (0.6-1.2) mg/dl Est Cr Clr Drug Dosing 28.9 ml/min Est GFR ( Amer) 51.0 Est GFR (Non-Af Amer) 44.0 BUN/Creatinine Ratio 21.7 H (10-20) Glucose 112 H (70-99) mg/dl POC Glucose (70-99) mg/dl Lactate (0.4-2.0) mmol/L Calcium 9.7 (8.5-10.1) mg/dl Phosphorus (2.5-4.9) mg/dl Magnesium (1.8-2.4) mg/dl Total Bilirubin 0.4 (0.2-1) mg/dl AST 32 (15-37) U/L ALT 29 (12-78) U/L Alkaline Phosphatase 232 H (45-117) U/L Troponin I 0.017 (0-0.045) ng/ml NT-Pro-B Natriuret Pep 1765 (0-1800) pg/ml Total Protein 8.2 (6.4-8.2) gm/dl Albumin 3.4 (3.4-5.0) gm/dl Globulin 4.8 H (2.5-4.0) gm/dl Albumin/Globulin Ratio 0.7 L (0.9-2) COVID-19 Eval Order Influ A Molecular Assay (Negative) Influ B Molecular Assay (Negative) SARS-CoV-2, RNA, NAAT (NEGATIVE) 03/22/20 03/22/20 03/22/20 Range/Units 18:55 18:55 23:18 WBC (4.8-10.8) K/uL RBC (4.2-5.4) M/uL Hgb (12.0-16.0) g/dL Hct (37-47) % MCV (80-100) fL MCH (25-34) pg MCHC (32-36) g/dL RDW Std Deviation (36.4-46.3) fL RDW Coeff of Nataly (11.5-14.5) % Plt Count (130-400) K/uL MPV (7.4-10.4) fL Immature Gran % (Auto) % Neut % (Auto) % Lymph % (Auto) % [place] % (Auto) % Eos % (Auto) % Baso % (Auto) % Neut # (Auto) (1.4-6.5) K/uL Lymph # (Auto) (1.2-3.4) K/uL [place] # (Auto) (0.11-0.59) K/uL Eos # (Auto) (0-0.5) K/uL Baso # (Auto) (0-0.2) K/uL Immature Gran # (Auto) (0.00-0.02) K/uL PT 18.9 H (9.0-12.0) Seconds INR 1.9 H (0.9-1.1) APTT 31.0 (21.0-31.0) Seconds PTT Ratio 1.1 ABG pH (7.35-7.45) ABG pCO2 (35-46) mmHg ABG pO2 (80-95) mmHg ABG HCO3 (19-24) mmol/L ABG O2 Saturation (90-95) % ABG Base Excess (-9-1.8) mEq/L Marques Test (Pos) Barometric Pressure mm/Hg Oxygen Given Sodium (136-145) mmol/L Potassium (3.5-5.1) mmol/L Chloride (98-107) mmol/L Carbon Dioxide (21-32) mmol/L Anion Gap (3-11) BUN (7-18) mg/dl Creatinine (0.6-1.2) mg/dl Est Cr Clr Drug Dosing ml/min Est GFR ( Amer) Est GFR (Non-Af Amer) BUN/Creatinine Ratio (10-20) Glucose (70-99) mg/dl POC Glucose 250 H (70-99) mg/dl Lactate 0.8 (0.4-2.0) mmol/L Calcium (8.5-10.1) mg/dl Phosphorus (2.5-4.9) mg/dl Magnesium (1.8-2.4) mg/dl Total Bilirubin (0.2-1) mg/dl AST (15-37) U/L ALT (12-78) U/L Alkaline Phosphatase (45-117) U/L Troponin I (0-0.045) ng/ml NT-Pro-B Natriuret Pep (0-1800) pg/ml Total Protein (6.4-8.2) gm/dl Albumin (3.4-5.0) gm/dl Globulin (2.5-4.0) gm/dl Albumin/Globulin Ratio (0.9-2) COVID-19 Eval Order Influ A Molecular Assay (Negative) Influ B Molecular Assay (Negative) SARS-CoV-2, RNA, NAAT (NEGATIVE) 03/22/20 03/22/20 Range/Units 23:21 23:21 WBC (4.8-10.8) K/uL RBC (4.2-5.4) M/uL Hgb (12.0-16.0) g/dL Hct (37-47) % MCV (80-100) fL MCH (25-34) pg MCHC (32-36) g/dL RDW Std Deviation (36.4-46.3) fL RDW Coeff of Nataly (11.5-14.5) % Plt Count (130-400) K/uL MPV (7.4-10.4) fL Immature Gran % (Auto) % Neut % (Auto) % Lymph % (Auto) % [place] % (Auto) % Eos % (Auto) % Baso % (Auto) % Neut # (Auto) (1.4-6.5) K/uL Lymph # (Auto) (1.2-3.4) K/uL [place] # (Auto) (0.11-0.59) K/uL Eos # (Auto) (0-0.5) K/uL Baso # (Auto) (0-0.2) K/uL Immature Gran # (Auto) (0.00-0.02) K/uL PT (9.0-12.0) Seconds INR (0.9-1.1) APTT (21.0-31.0) Seconds PTT Ratio ABG pH 7.27 L (7.35-7.45) ABG pCO2 97 H (35-46) mmHg ABG pO2 63 L (80-95) mmHg ABG HCO3 44 H (19-24) mmol/L ABG O2 Saturation 89.7 L (90-95) % ABG Base Excess 14.1 H (-9-1.8) mEq/L Marques Test Pos (Pos) Barometric Pressure mm/Hg Oxygen Given 4L Sodium (136-145) mmol/L Potassium (3.5-5.1) mmol/L Chloride (98-107) mmol/L Carbon Dioxide (21-32) mmol/L Anion Gap (3-11) BUN (7-18) mg/dl Creatinine (0.6-1.2) mg/dl Est Cr Clr Drug Dosing ml/min Est GFR ( Amer) Est GFR (Non-Af Amer) BUN/Creatinine Ratio (10-20) Glucose (70-99) mg/dl POC Glucose (70-99) mg/dl Lactate (0.4-2.0) mmol/L Calcium (8.5-10.1) mg/dl Phosphorus 4.1 (2.5-4.9) mg/dl Magnesium 2.0 (1.8-2.4) mg/dl Total Bilirubin (0.2-1) mg/dl AST (15-37) U/L ALT (12-78) U/L Alkaline Phosphatase (45-117) U/L Troponin I (0-0.045) ng/ml NT-Pro-B Natriuret Pep (0-1800) pg/ml Total Protein (6.4-8.2) gm/dl Albumin (3.4-5.0) gm/dl Globulin (2.5-4.0) gm/dl Albumin/Globulin Ratio (0.9-2) COVID-19 Eval Order Influ A Molecular Assay (Negative) Influ B Molecular Assay (Negative) SARS-CoV-2, RNA, NAAT (NEGATIVE) Diagnostic Findings SINGLE VIEW CHEST CLINICAL HISTORY: Dyspnea FINDINGS: 2 AP, portable, upright chest radiographs are compared to chest x-ray dated 05/19/2019. Correlation is made with chest CT dated 05/21/2019. The examination is degraded by portable technique and patient rotation. The heart is enlarged noting atherosclerotic calcification of the thoracic aorta. There is pulmonary vascular congestion. Advanced emphysematous change and chronic interstitial thickening are similar to previous. There is volume loss and postoperative change in the left lung, with fibrosis at the left lung base. Interstitial opacities are seen bilaterally. There are small pleural effusions. No pneumothorax is seen. The skeletal structures are osteopenic. The bony thorax is grossly intact. IMPRESSION: 1. Cardiomegaly with evidence of congestive failure. 2. Advanced emphysema with postoperative change and volume loss from left-sided pulmonary resection. 3. Chronic fibrotic change at the left lung base is similar to previous. 4. Small pleural effusions. 5. Hazy interstitial airspace opacities likely represent mild pulmonary edema. Correlate clinically for evidence of a superimposed infectious/inflammatory pneumonitis. Electronically signed by: John Glass M.D. 03/22/2020 7:19 PM Dictated: 03/22/201916Transcribed: 03/22/201916 ECG Additional Comments: EKG with ST at 123, normal axis, DK=833, QRS=90, SJg=052 PG Care Time/CCT Total # of Minutes Spent Total Time Spent with Patient: Total time spent is greater than 50% in coordination of care (as documented) at patient's floor/unit and/or counseling patient: Coding Level of Care Code 42663 Initial Inpt Care Lvl 3 Diagnoses Acute and chronic respiratory failure J96.22 Respiratory failure complication: hypercapnia Paroxysmal atrial fibrillation I48.0 Diabetes type 2, controlled E11.9 Diabetes mellitus rodent exterminator insulin use: without assisted use Diabetes mellitus complication status: without complication Hypertension I10 Hypertension type: essential hypertension (1) Acute and chronic respiratory failure Respiratory failure complication: hypercapnia Qualified Code(s): J96.22 - Acute and chronic respiratory failure with hypercapnia (2) Diabetes type 2, controlled Diabetes mellitus rodent exterminator insulin use: without rodent exterminator use Diabetes mellitus complication status: without complication Qualified Code(s): E11.9 - Type 2 diabetes mellitus without complications (3) Hypertension Hypertension type: essential hypertension Qualified Code(s): I10 - Essential (primary) hypertension
[2020-03-22] MEDS ORDERED: FUROSEMIDE 40 MG/4 ML VIAL IV ONE (21:00)
[2020-03-22] MEDS ORDERED: GLUCOSE 10 TABS/TUBE PO PRN (22:59)
[2020-03-22] MEDS ORDERED: ONDANSETRON INJ 2 MG/ML 2 ML VIAL IV PRN (22:59)
[2020-03-22] MEDS ORDERED: ACETAMINOPHEN 325 MG TAB PO PRN (22:59)
[2020-03-22] MEDS ORDERED: GLUCOSE 40% GEL 15 GM TUBE PO PRN (22:59)
[2020-03-22] MEDS ORDERED: GLUCAGON FOR INJ 1 MG VIAL SQ PRN (22:59)
[2020-03-22] MEDS ORDERED: ALBUTEROL 0.5% NEB SOLN 2.5 MG/0.5 ML VIAL NEB PRN (22:59)
[2020-03-22] MEDS ORDERED: DEXTROSE 50% 50 ML SYRINGE IV PRN (22:59)
[2020-03-22] MEDS ORDERED: CARBOHYDRATES FOR HYPOGLYCEMIA PO PRN (22:59)
[2020-03-22] MEDS ORDERED: INFLUENZA ADMINISTRATION CHARGE ONE (23:19)
[2020-03-22] MEDS ORDERED: INFLUENZA VACCINE HIGH DOSE 65+ 0.7 ML SYR IM ONE (23:19)
[2020-03-22 23:37] LABS: Allen Test Pos (Pos); Base Excess ABG 14.1 mEq/L (-9-1.8); HCO3 ABG 44 mmol/L (19-24); Oxygen Saturation ABG 89.7 % (90-95); PCO2 ABG 97 mmHg (35-46); PO2 ABG 63 mmHg (80-95); pH ABG 7.27 (7.35-7.45)
[2020-03-22 23:46] LABS: Phosphorus 4.1 mg/dl (2.5-4.9)
[2020-03-23] MEDS: NIACIN EXTENDED REL 500 MG TABCR PO SCH ×3 (00:06→19:43)
[2020-03-23] MEDS: INSULIN ASPART 100 UNITS/ML 3 ML PEN SC SCH ×5 (00:07→21:02)
[2020-03-23] MEDS: ALBUT/IPRATROP 3MG/0.5MG NEB 3 ML VIAL INH SCH ×7 (00:35→22:09)
[2020-03-23] MEDS: INSULIN GLARGINE SOLOSTAR 100 UNITS/ML 3 ML PEN SC SCH ×3 (02:46→21:02)
[2020-03-23 05:54] LABS: Allen Test Pos (Pos); Base Excess ABG 15.7 mEq/L (-9-1.8); HCO3 ABG 44 mmol/L (19-24); Oxygen Saturation ABG 93.8 % (90-95); PCO2 ABG 86 mmHg (35-46); PO2 ABG 78 mmHg (80-95); pH ABG 7.33 (7.35-7.45)
[2020-03-23 06:00] LABS: Hematocrit (blood only) 28.4 % (37-47); Hemoglobin 8.2 g/dL (12.0-16.0); Immature Granulocytes # (auto) 0.01 K/uL (0.00-0.02); Immature Granulocytes % (auto) 0.2 %; Lymphocytes # (auto) 0.42 K/uL (1.2-3.4); Lymphocytes % (auto) 6.9 %; Mean Corpuscular Hemoglobin 28.4 pg (25-34); Mean Corpuscular Hgb Conc 28.9 g/dL (32-36); Mean Corpuscular Volume 98.3 fL (80-100); Mean Platelet Volume 8.8 fL (7.4-10.4); Monocytes # (auto) 0.03 K/uL (0.11-0.59); Monocytes % (auto) 0.5 %; Neutrophils # (auto) 5.63 K/uL (1.4-6.5); Neutrophils % (auto) 92.4 %; Platelet Count 268 K/uL (130-400); RDW Coefficient of Variation 13.6 % (11.5-14.5); RDW Standard Deviation 48.3 fL (36.4-46.3); Red Blood Count 2.89 M/uL (4.2-5.4); White Blood Count 6.09 K/uL (4.8-10.8)
[2020-03-23 06:08] LABS: INR 1.8 (0.9-1.1); Prothrombin Time 18.8 Seconds (9.0-12.0)
[2020-03-23 06:26] LABS: BUN Creatinine Ratio 25.9 (10-20); Bilirubin Direct 0.2 mg/dl (0-0.2); Calcium 9.8 mg/dl (8.5-10.1); Creatinine Clr Calc Pharmacy 29.4 ml/min; Est GFR (Non-African American) 44.9; Potassium 4.6 mmol/L (3.5-5.1)
[2020-03-23 06:31] LABS: Bilirubin,Total 0.4 mg/dl (0.2-1); Total Protein 7.5 gm/dl (6.4-8.2)
--- NOTE | 2020-03-23 09:21 | Hospitalist Progress Note ---
Date of Service March 23, 2020 Assessment & Plan (1) Acute and chronic respiratory failure: 80yo female with very severe COPD (FVC 0.81 L, 30%, FEV1 0.41 L, 21%, FEV1/FVC 51%) presenting with acute on chronic hypoxic hypercapnic respiratory failure. Patient has been declining over the last several days. Her states that she has been "lifeless" today. She uses home noninvasive ventilator - NIMV settings should be AVAPS-AE; Breath rate: auto; Inspiratory time:auto; Sigh: off; Tidal Volume: 350-450, PS min: 4- 10 PS max: 12-20; EPAP min: 6-10; EPAP max: 10-16; AVAPS rate: 14 during sleep and as needed ABG on BiPAP with acute on chronic respiratory failure. Repeat on Oxymask 4L showed some worsening Covid-19 test performed in ER NEGATIVE as well as negative Influenza A and B -Goal oxygen saturations 88 - 92% -DuoNebs q 4 hours -Albuterol q 2 hours as needed -Solumedrol 30mg IV TID -Continue Fluticasone -Continue Umeclidinium/Vilanterol -Azithromycin -Flutter valve more alert today, PCO2 down to 86, pH is 7.33 continue BIPAP HS (2) Paroxysmal atrial fibrillation: Patient with history of paroxysmal atrial fibrillation on diltiazem and anticoagulated with Coumadin. Subtherapeutic INR presently at 1.9. She follows regularly with anticoagulation clinic - last seen on 03/12/20. INR has been labile in setting of changing nutritional intake. -Continue current Coumadin dosing - 1mg on Tuesday/Tuesday and 2mg on Tuesday/Tuesday//Tuesday/Tuesday -INR 1.8 today -Continue Diltiazem 300mg po qAM -Telemetry monitoring (3) Diabetes type 2, controlled: DM on oral agents - last [id number]=0.6 on 10/12/19 -Hold Metformin -Lantus 5u BID with ISS monitor for hypoglycemia (4) Hypertension: Blood pressure stable -Continue diltiazem as above -Monitor F/E/N - monitor electrolytes and replete as needed, CC/Heart healthy diet as tolerated with aspiration precautions Ppx - On Coumadin as above Code - DNR/DNI Dispo - Admit to PCU Admission and Anticipated Discharge Date Admission Date: March 22, 2020 Subjective patient was sleeping this morning, still on BIPAP revisited later in afternoon, she was awake, no distress states that she does not recall anything from the past two days explained that her CO2 was elevated, improved with BIPAP she denies any dyspnea while resting in bed she has an appetite, looking forward to dinner reviewed chart, reviewed labs, Hb down a little at 8.2 PCO2 down to 86, pH of 7.33, likely close to her baseline Cr normal at 1.1 Review of Systems Review of Systems: All systems reviewed & are unremarkable except as noted in Subjective Constitutional: + fatigue and + weakness; no fever, no chills and no sweats Respiratory: no cough, no dyspnea, no dyspnea on exertion and no wheezing Cardiovascular: no chest pain and no edema Physical Exam Constitutional: well developed, + thin, cooperative and comfortable; no acute distress Neck: trachea midline, no thyromegaly Respiratory: normal respiratory effort; no respiratory distress, no labored breathing, no cough and not tachypneic Auscultation: lungs clear to auscultation bilaterally Cardiovascular: RRR, no murmur, no edema Gastrointestinal (Abdomen): normal bowel sounds, soft, nontender, no hepatosplenomegaly Musculoskeletal: no cyanosis or clubbing, extremities motor strength 5/5 Skin: no rashes, warm and dry Neurologic: patellar DTR's 2+ bilat, sensation intact and PERRL, EOMI, accommodation nl, no face palsy, no dysarthria Psychiatric: A+Ox3, euthymic affect Lymphatic: no cervical or axillary lymphadenopathy Results & Data Results & Data ([facility]) Vital Signs (Past 12 Hours) Vital Signs Temp Pulse Pulse Resp BP BP Pulse Ox 03/23/20 07:24 104 H 26 H 96 03/23/20 07:21 104 H 26 H 96 03/23/20 07:16 36.5 C 100 H 20 119/77 97 03/23/20 03:37 92 H 27 H 97 03/23/20 03:36 92 H 27 H 97 03/23/20 02:30 36.4 C L 89 16 115/68 92 03/23/20 00:35 95 H 95 H 28 H 96 03/23/20 00:00 97 H 03/22/20 22:59 36.6 C 100 H 20 125/64 100 03/22/20 22:23 105 H 30 H 97 03/22/20 22:00 108 H 33 H 143/61 H 96 03/22/20 21:30 99 H 29 H 142/63 H 94 Laboratory Results Laboratory Results - last 24 hr 03/22/20 03/22/20 03/22/20 18:26 18:31 18:31 WBC RBC Hgb Hct MCV MCH MCHC RDW Std Deviation RDW Coeff of Nataly Plt Count MPV Immature Gran % (Auto) Neut % (Auto) Lymph % (Auto) Merrick % (Auto) Eos % (Auto) Baso % (Auto) Neut # (Auto) Lymph # (Auto) Merrick # (Auto) Eos # (Auto) Baso # (Auto) Immature Gran # (Auto) PT INR APTT PTT Ratio ABG pH ABG pCO2 ABG pO2 ABG HCO3 ABG O2 Saturation ABG Base Excess [place] Test Barometric Pressure Oxygen Given Sodium Potassium Chloride Carbon Dioxide Anion Gap BUN Creatinine Est Cr Clr Drug Dosing Est GFR ( Amer) Est GFR (Non-Af Amer) BUN/Creatinine Ratio Glucose POC Glucose Lactate Calcium Phosphorus Magnesium Total Bilirubin Direct Bilirubin AST ALT Alkaline Phosphatase Troponin I NT-Pro-B Natriuret Pep Total Protein Albumin Globulin Albumin/Globulin Ratio Procalcitonin COVID-19 Eval [facility] Influ A Molecular Assay Negative Influ B Molecular Assay Negative SARS-CoV-2, RNA, NAAT NEGATIVE 03/22/20 03/22/20 03/22/20 18:55 18:55 18:55 WBC 9.02 RBC 3.23 L Hgb 9.3 L Hct 32.4 L MCV 100.3 H MCH 28.8 MCHC 28.7 L RDW Std Deviation 49.6 H RDW Coeff of Nataly 13.5 Plt Count 288 MPV 8.6 Immature Gran % (Auto) 0.1 Neut % (Auto) 76.6 Lymph % (Auto) 17.2 Merrick % (Auto) 5.1 Eos % (Auto) 0.9 Baso % (Auto) 0.1 Neut # (Auto) 6.91 H Lymph # (Auto) 1.55 Merrick # (Auto) 0.46 Eos # (Auto) 0.08 Baso # (Auto) 0.01 Immature Gran # (Auto) 0.01 PT INR APTT PTT Ratio ABG pH 7.32 L ABG pCO2 89 H ABG pO2 96 H ABG HCO3 45 H ABG O2 Saturation 96.0 H ABG Base Excess 15.7 H Marques Test Pos Barometric Pressure 733.1 Oxygen Given 4 Sodium 141 Potassium 4.5 Chloride 94 L Carbon Dioxide 47 H* Anion Gap 0 L BUN 25 H Creatinine 1.17 Est Cr Clr Drug Dosing 28.9 Est GFR ( Amer) 51.0 Est GFR (Non-Af Amer) 44.0 BUN/Creatinine Ratio 21.7 H Glucose 112 H POC Glucose Lactate Calcium 9.7 Phosphorus Magnesium Total Bilirubin 0.4 Direct Bilirubin AST 32 ALT 29 Alkaline Phosphatase 232 H Troponin I 0.017 NT-Pro-B Natriuret Pep 1765 Total Protein 8.2 Albumin 3.4 Globulin 4.8 H Albumin/Globulin Ratio 0.7 L Procalcitonin COVID-19 Eval Order Influ A Molecular Assay Influ B Molecular Assay SARS-CoV-2, RNA, NAAT 03/22/20 03/22/20 03/22/20 18:55 18:55 23:18 WBC RBC Hgb Hct MCV MCH MCHC RDW Std Deviation RDW Coeff of Nataly Plt Count MPV Immature Gran % (Auto) Neut % (Auto) Lymph % (Auto) Merrick % (Auto) Eos % (Auto) Baso % (Auto) Neut # (Auto) Lymph # (Auto) Merrick # (Auto) Eos # (Auto) Baso # (Auto) Immature Gran # (Auto) PT 18.9 H INR 1.9 H APTT 31.0 PTT Ratio 1.1 ABG pH ABG pCO2 ABG pO2 ABG HCO3 ABG O2 Saturation ABG Base Excess [place] Test Barometric Pressure Oxygen Given Sodium Potassium Chloride Carbon Dioxide Anion Gap BUN Creatinine Est Cr Clr Drug Dosing Est GFR ( Amer) Est GFR (Non-Af Amer) BUN/Creatinine Ratio Glucose POC Glucose 250 H Lactate 0.8 Calcium Phosphorus Magnesium Total Bilirubin Direct Bilirubin AST ALT Alkaline Phosphatase Troponin I NT-Pro-B Natriuret Pep Total Protein Albumin Globulin Albumin/Globulin Ratio Procalcitonin COVID-19 Eval Order Influ A Molecular Assay Influ B Molecular Assay SARS-CoV-2, RNA, NAAT 03/22/20 03/22/20 03/22/20 23:21 23:21 23:21 WBC RBC Hgb Hct MCV MCH MCHC RDW Std Deviation RDW Coeff of Nataly Plt Count MPV Immature Gran % (Auto) Neut % (Auto) Lymph % (Auto) Merrick % (Auto) Eos % (Auto) Baso % (Auto) Neut # (Auto) Lymph # (Auto) Merrick # (Auto) Eos # (Auto) Baso # (Auto) Immature Gran # (Auto) PT INR APTT PTT Ratio ABG pH 7.27 L ABG pCO2 97 H ABG pO2 63 L ABG HCO3 44 H ABG O2 Saturation 89.7 L ABG Base Excess 14.1 H Marques Test Pos Barometric Pressure Oxygen Given 4L Sodium Potassium Chloride Carbon Dioxide Anion Gap BUN Creatinine Est Cr Clr Drug Dosing Est GFR ( Amer) Est GFR (Non-Af Amer) BUN/Creatinine Ratio Glucose POC Glucose Lactate Calcium Phosphorus 4.1 Magnesium 2.0 Total Bilirubin Direct Bilirubin AST ALT Alkaline Phosphatase Troponin I NT-Pro-B Natriuret Pep Total Protein Albumin Globulin Albumin/Globulin Ratio Procalcitonin 0.11 COVID-19 Eval Order Influ A Molecular Assay Influ B Molecular Assay SARS-CoV-2, RNA, NAAT 03/23/20 03/23/20 03/23/20 02:29 05:37 05:37 WBC 6.09 RBC 2.89 L Hgb 8.2 L Hct 28.4 L MCV 98.3 MCH 28.4 MCHC 28.9 L RDW Std Deviation 48.3 H RDW Coeff of Nataly 13.6 Plt Count 268 MPV 8.8 Immature Gran % (Auto) 0.2 Neut % (Auto) 92.4 Lymph % (Auto) 6.9 Merrick % (Auto) 0.5 Eos % (Auto) 0.0 Baso % (Auto) 0.0 Neut # (Auto) 5.63 Lymph # (Auto) 0.42 L Merrick # (Auto) 0.03 L Eos # (Auto) 0.00 Baso # (Auto) 0.00 Immature Gran # (Auto) 0.01 PT INR APTT PTT Ratio ABG pH ABG pCO2 ABG pO2 ABG HCO3 ABG O2 Saturation ABG Base Excess [place] Test Barometric Pressure Oxygen Given Sodium 142 Potassium 4.6 Chloride 93 L Carbon Dioxide 43 H* Anion Gap 6.0 BUN 30 H Creatinine 1.15 Est Cr Clr Drug Dosing 29.4 Est GFR ( Amer) 52.0 Est GFR (Non-Af Amer) 44.9 BUN/Creatinine Ratio 25.9 H Glucose 183 H POC Glucose 178 H Lactate Calcium 9.8 Phosphorus Magnesium Total Bilirubin 0.4 Direct Bilirubin 0.2 AST 24 ALT 25 Alkaline Phosphatase 197 H Troponin I NT-Pro-B Natriuret Pep Total Protein 7.5 Albumin 3.0 L Globulin Albumin/Globulin Ratio Procalcitonin COVID-19 Eval Order Influ A Molecular Assay Influ B Molecular Assay SARS-CoV-2, RNA, NAAT 03/23/20 03/23/20 03/23/20 05:37 05:37 07:27 WBC RBC Hgb Hct MCV MCH MCHC RDW Std Deviation RDW Coeff of Nataly Plt Count MPV Immature Gran % (Auto) Neut % (Auto) Lymph % (Auto) Merrick % (Auto) Eos % (Auto) Baso % (Auto) Neut # (Auto) Lymph # (Auto) Merrick # (Auto) Eos # (Auto) Baso # (Auto) Immature Gran # (Auto) PT 18.8 H INR 1.8 H APTT PTT Ratio ABG pH 7.33 L ABG pCO2 86 H ABG pO2 78 L ABG HCO3 44 H ABG O2 Saturation 93.8 ABG Base Excess 15.7 H Marques Test Pos Barometric Pressure 734.7 Oxygen Given BIPAP Sodium Potassium Chloride Carbon Dioxide Anion Gap BUN Creatinine Est Cr Clr Drug Dosing Est GFR ( Amer) Est GFR (Non-Af Amer) BUN/Creatinine Ratio Glucose POC Glucose 185 H Lactate Calcium Phosphorus Magnesium Total Bilirubin Direct Bilirubin AST ALT Alkaline Phosphatase Troponin I NT-Pro-B Natriuret Pep Total Protein Albumin Globulin Albumin/Globulin Ratio Procalcitonin COVID-19 Eval Order Influ A Molecular Assay Influ B Molecular Assay SARS-CoV-2, RNA, NAAT Medications Administered Current Inpatient Medications Acetaminophen (Acetaminophen 325 Mg Tab) 650 mg PO Q4H PRN PRN Reason: Pain or Fever Stop: 04/21/20 22:58 Albuterol (Albut/Ipratrop 3mg/0.5mg Neb 3 Ml Vial) 3 ml INH Q4R KEV Stop: 04/21/20 22:59 Last Admin: 03/23/20 07:21 Dose: 3 ml Documented by: Albuterol (Albuterol 0.5% Neb Soln 2.5 Mg/0.5 Ml Vial) 2.5 mg NEB Q2H PRN PRN Reason: SOB/Wheeze Stop: 04/21/20 22:58 Dextrose (Dextrose 50% 50 Ml Syringe) 25 - 50 ml IV UD PRN; Protocol PRN Reason: Hypoglycemia Protocol Stop: 04/21/20 22:58 Diltiazem HCl (Diltiazem Hcl 300 Mg Capcr) 300 mg PO QAM [facility] Stop: 04/22/20 08:59 Fluticasone Furoate (Fluticasone Furoate 100mcg 14 Puffs/Inhaler) [facility]: 04/22/20 08:59 Glucagon (Glucagon For Inj 1 Mg Vial) 1 mg SQ UD PRN; Protocol PRN Reason: Hypoglycemia Protocol Stop: 04/21/20 22:58 Glucose (Glucose 10 Tabs/Tube) 4 - 8 tabs PO UD PRN; Protocol PRN Reason: Hypoglycemia Protocol Stop: 04/21/20 22:58 Glucose (Glucose 40% Gel 15 Gm Tube) 15 - 30 gm PO UD PRN; Protocol PRN Reason: Hypoglycemia Protocol Stop: 04/21/20 22:58 Cefepime HCl 2,000 mg/ Syringe 20 mls @ 5 mls/min IV Q24H [facility]; Protocol Stop: 03/29/20 19:59 Methylprednisolone 30 mg/ (Syringe) 0.48 mls @ 1.5 mls/min IV Q8H [facility] Stop: 04/22/20 07:59 Insulin Aspart (Insulin Aspart 100 Units/Ml 3 Ml Pen) 0 units SC ACHS [facility] Stop: 04/21/20 22:58 Last Admin: 03/23/20 00:07 Dose: 3 units Documented by: Insulin Glargine (Insulin Glargine Solostar 100 Units/Ml 3 Ml Pen) 5 units SC BID [facility] Stop: 04/22/20 00:29 Last Admin: 03/23/20 02:46 Dose: 5 units Documented by: Magnesium Oxide (Magnesium Oxide 400 Mg Tab) 400 mg PO QAM [facility] Stop: 04/22/20 08:59 Miscellaneous (Carbohydrates For Hypoglycemia ) 15 - 30 gm PO UD PRN PRN Reason: Hypoglycemia Protocol Stop: 04/21/20 22:58 Niacin (Niacin Extended Rel 500 Mg Tabcr) 500 mg PO BID [facility] Stop: 04/21/20 22:58 Last Admin: 03/23/20 00:06 Dose: 500 mg Documented by: Ondansetron HCl (Ondansetron Inj 2 Mg/Ml 2 Ml Vial) 4 mg IV Q6H PRN PRN Reason: Nausea Stop: 04/21/20 22:58 Umeclidinium/Vilanterol (Umeclidinium/Vilanterol 62.5/25mcg 7 Puffs/Inhaler) 1 puffs INH QAM [facility] Stop: 04/22/20 08:59 Warfarin Sodium (Warfarin Sod 1 Mg Tab) 1 mg PO TuSa@1600 [facility] Stop: 04/24/20 15:59 Warfarin Sodium (Warfarin Sod 2 Mg Tab) 2 mg PO SuMoWeThFr@1600 [facility] Stop: 04/22/20 15:59 PG Care Time/CCT Total # of Minutes Spent Total Time Spent with Patient: Total time spent is greater than 50% in coordinat ion of care (as documented) at patient's floor/unit and/or counseling patient: Coding Level of Care Code 91816 Subseq Hosp Care Lvl 2 Diagnoses Acute and chronic respiratory failure J96.22 Respiratory failure complication: hypercapnia Paroxysmal atrial fibrillation I48.0 Diabetes type 2, controlled E11.9 Diabetes mellitus complication status: without complication 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
[2020-03-23] MEDS: methylPREDNISolone 30 MG in SYRINGE 0 ML IV SCH ×2 (09:22→16:35)
[2020-03-23] MEDS: FLUTICASONE FUROATE 100MCG 14 PUFFS/INHALER INH SCH (11:31)
[2020-03-23] MEDS: UMECLIDINIUM/VILANTEROL 62.5/25MCG 7 PUFFS/INHALER INH SCH (11:31)
[2020-03-23] MEDS: MAGNESIUM OXIDE 400 MG TAB PO SCH (11:32)
[2020-03-23] MEDS: dilTIAZem HCL 300 MG CAPCR PO SCH (11:34)
[2020-03-23] MEDS: WARFARIN SOD 2 MG TAB PO SCH (16:35)
[2020-03-23] MEDS: CEFEPIME 2,000 MG in SYRINGE 0 ML IV SCH (19:43)
--- NOTE | 2020-03-23 21:55 | Electrocardiogram Report ---
Test Reason : Blood Pressure : / mmHG Vent. Rate : 123 BPM Atrial Rate : 123 BPM P-R Int : 178 ms QRS Dur : 090 ms QT Int : 254 ms P-R-T Axes : 078 086 056 degrees QTc Int : 363 ms Sinus tachycardia with occasional Premature ventricular complexes Otherwise normal ECG When compared with ECG of 21-MAY-2019 06:37, Premature ventricular complexes are now Present Premature atrial complexes are no longer Present Confirmed by Jarrod Forrester ([id number]) on 03/23/2020 9:55:02 PM Referred By: REFERRED SELF Confirmed By:Jarrod Forrester
[2020-03-24] MEDS: methylPREDNISolone 30 MG in SYRINGE 0 ML IV SCH ×3 (00:56→20:18)
[2020-03-24] MEDS: ALBUT/IPRATROP 3MG/0.5MG NEB 3 ML VIAL INH SCH ×6 (02:55→22:57)
[2020-03-24 06:46] LABS: INR 1.9 (0.9-1.1); Prothrombin Time 19.8 Seconds (9.0-12.0)
[2020-03-24] MEDS: INSULIN ASPART 100 UNITS/ML 3 ML PEN SC SCH ×4 (07:58→20:18)
[2020-03-24] MEDS: UMECLIDINIUM/VILANTEROL 62.5/25MCG 7 PUFFS/INHALER INH SCH (08:08)
[2020-03-24] MEDS: INSULIN GLARGINE SOLOSTAR 100 UNITS/ML 3 ML PEN SC SCH ×2 (08:08→20:17)
[2020-03-24] MEDS: MAGNESIUM OXIDE 400 MG TAB PO SCH (08:08)
[2020-03-24] MEDS: dilTIAZem HCL 300 MG CAPCR PO SCH (08:08)
[2020-03-24] MEDS: NIACIN EXTENDED REL 500 MG TABCR PO SCH ×2 (08:08→20:17)
[2020-03-24] MEDS: FLUTICASONE FUROATE 100MCG 14 PUFFS/INHALER INH SCH (08:08)
--- NOTE | 2020-03-24 09:28 | Hospitalist Progress Note ---
Date of Service March 24, 2020 Assessment & Plan (1) Acute and chronic respiratory failure: 80yo female with very severe COPD (FVC 0.81 L, 30%, FEV1 0.41 L, 21%, FEV1/FVC 51%) presenting with acute on chronic hypoxic hypercapnic respiratory failure. Patient has been declining over the last several days. Her states that she has been "lifeless" on 12 She uses home noninvasive ventilator - NIMV settings should be AVAPS-AE; Breath rate: auto; Inspiratory time:auto; Sigh: off; Tidal Volume: 350-450, PS min: 4- 10 PS max: 12-20; EPAP min: 6-10; EPAP max: 10-16; AVAPS rate: 14 during sleep and as needed ABG on BiPAP with acute on chronic respiratory failure. Covid-19 test performed in ER NEGATIVE as well as negative Influenza A and B -Goal oxygen saturations 88 - 92%, normally not on oxygen at home today she is stable, comfortable on 4L -DuoNebs q 4 hours -Albuterol q 2 hours as needed -Solumedrol : will decrease to 30mg q12 -Continue Fluticasone -Continue Umeclidinium/Vilanterol Cefepime IV x 5-7 days even more alert today, PCO2 down to 86, pH is 7.33 on 03/23, will repeat ABG tomorrow continue BIPAP HS wonder if she was using her NIMV as prescribed at home? called her , no answer, will reach out to him again (2) Paroxysmal atrial fibrillation: Patient with history of paroxysmal atrial fibrillation on diltiazem and anticoagulated with Coumadin. She follows regularly with anticoagulation clinic - last seen on 03/12/20. INR has been labile in setting of changing nutritional intake. -Continue current Coumadin dosing - 1mg on Tuesday/Tuesday and 2mg on Tuesday/Tuesday//Tuesday/Tuesday -INR 1.9 today -Continue Diltiazem 300mg po qAM -Telemetry monitoring, rates in 90's (3) Diabetes type 2, controlled: DM on oral agents - last LtbL3G=7.6 on 10/12/19 -Hold Metformin -Lantus 5u BID with ISS monitor for hypoglycemia, no episodes glucose 130-260 past 24 hours, should improve further with lowering Solu Medrol dose (4) Hypertension: Blood pressure stable -Continue diltiazem as above -Monitor F/E/N - monitor electrolytes and replete as needed, CC/Heart healthy diet as tolerated with aspiration precautions Ppx - On Coumadin as above Code - DNR/DNI Dispo - continue PCU for today get PT/OT to evaluate, try to decrease O2 requirements, goal is to get back home in a few days Admission and Anticipated Discharge Date Admission Date: March 22, 2020 Subjective patient is alert and oriented today, she admits that she feels more short of breath than normal says that she typically does not wear oxygen at home, today she is on 4L she says her strength is fairly good, will get therapy, her goal is to be discharged back home reviewed meds, will cut Solu medrol to q12 vitals stable this morning Review of Systems Review of Systems: All systems reviewed & are unremarkable except as noted in Subjective Constitutional: + weakness; no fever, no chills, no sweats and no fatigue Respiratory: + cough, + dyspnea and + dyspnea on exertion; no sputum production Cardiovascular: no chest pain and no edema Gastrointestinal: no abdominal pain, no nausea, no vomiting, no constipation and no diarrhea/loose stools Musculoskeletal: + muscle weakness Physical Exam Constitutional: well developed, + thin, cooperative and comfortable; no acute distress Neck: trachea midline, no thyromegaly Respiratory: normal respiratory effort; no respiratory distress, no labored breathing, no cough and not tachypneic Auscultation: lungs clear to auscultation bilaterally and + diminished lung sounds Cardiovascular: RRR, no murmur, no edema Gastrointestinal (Abdomen): normal bowel sounds, soft, nontender, no hepatosplenomegaly Musculoskeletal: no cyanosis or clubbing, extremities motor strength 5/5 Skin: no rashes, warm and dry Neurologic: patellar DTR's 2+ bilat, sensation intact and PERRL, EOMI, accommo dation nl, no face palsy, no dysarthria Psychiatric: A+Ox3, euthymic affect Lymphatic: no cervical or axillary lymphadenopathy Results & Data Results & Data ([facility]) Vital Signs (Past 12 Hours) Vital Signs Temp Pulse Pulse Resp BP Pulse Ox 03/24/20 08:21 36.7 C 103 H 19 144/71 H 95 03/24/20 06:59 97 H 22 97 03/24/20 02:57 103 H 103 H 30 H 95 03/24/20 00:00 108 H 03/23/20 23:02 36.6 C 108 H 20 131/75 94 03/23/20 22:12 111 H 26 H 92 03/23/20 22:11 111 H 26 H 92 Laboratory Results Laboratory Results - last 24 hr 03/23/20 03/23/20 03/23/20 11:31 16:27 20:24 PT INR POC Glucose 131 H 190 H 261 H 03/24/20 03/24/20 06:00 07:24 PT 19.8 H INR 1.9 H POC Glucose 187 H Medications Administered Current Inpatient Medications Acetaminophen (Acetaminophen 325 Mg Tab) 650 mg PO Q4H PRN PRN Reason: Pain or Fever Stop: 04/21/20 22:58 Albuterol (Albut/Ipratrop 3mg/0.5mg Neb 3 Ml Vial) 3 ml INH Q4R [facility] Stop: 04/21/20 22:59 Last Admin: 03/24/20 06:58 Dose: 3 ml Documented by: Albuterol (Albuterol 0.5% Neb Soln 2.5 Mg/0.5 Ml Vial) 2.5 mg NEB Q2H PRN PRN Reason: SOB/Wheeze Stop: 04/21/20 22:58 Dextrose (Dextrose 50% 50 Ml Syringe) 25 - 50 ml IV UD PRN; Protocol PRN Reason: Hypoglycemia Protocol Stop: 04/21/20 22:58 Diltiazem HCl (Diltiazem Hcl 300 Mg Capcr) 300 mg PO QAM [facility] Stop: 04/22/20 08:59 Last Admin: 03/24/20 08:08 Dose: 300 mg Documented by: Fluticasone Furoate (Fluticasone Furoate 100mcg 14 Puffs/Inhaler) 1 puffs INH QAM [facility] Stop: 04/22/20 08:59 Last Admin: 03/24/20 08:08 Dose: 1 puffs Documented by: Glucagon (Glucagon For Inj 1 Mg Vial) 1 mg SQ UD PRN; Protocol PRN Reason: Hypoglycemia Protocol Stop: 04/21/20 22:58 Glucose (Glucose 10 Tabs/Tube) 4 - 8 tabs PO UD PRN; Protocol PRN Reason: Hypoglycemia Protocol Stop: 04/21/20 22:58 Glucose (Glucose 40% Gel 15 Gm Tube) 15 - 30 gm PO UD PRN; Protocol PRN Reason: Hypoglycemia Protocol Stop: 04/21/20 22:58 Cefepime HCl 2,000 mg/ Syringe 20 mls @ 5 mls/min IV Q24H [facility]; Protocol Stop: 03/29/20 19:59 Last Admin: 03/23/20 19:43 Dose: 5 mls/min Documented by: Methylprednisolone 30 mg/ (Syringe) 0.48 mls @ 1.5 mls/min IV Q12 [facility] Stop: 04/23/20 20:59 Insulin Aspart (Insulin Aspart 100 Units/Ml 3 Ml Pen) 0 units SC ACHS [facility] Stop: 04/21/20 22:58 Last Admin: 03/24/20 07:58 Dose: 4 units Documented by: Insulin Glargine (Insulin Glargine Solostar 100 Units/Ml 3 Ml Pen) 5 units SC BID [facility] Stop: 04/22/20 00:29 Last Admin: 03/24/20 08:08 Dose: 5 units Documented by: Magnesium Oxide (Magnesium Oxide 400 Mg Tab) 400 mg PO QAM [facility] Stop: 04/22/20 08:59 Last Admin: 03/24/20 08:08 Dose: 400 mg Documented by: Miscellaneous (Carbohydrates For Hypoglycemia ) 15 - 30 gm PO UD PRN PRN Reason: Hypoglycemia Protocol Stop: 04/21/20 22:58 Niacin (Niacin Extended Rel 500 Mg Tabcr) 500 mg PO BID [facility] Stop: 04/21/20 22:58 Last Admin: 03/24/20 08:08 Dose: 500 mg Documented by: Ondansetron HCl (Ondansetron Inj 2 Mg/Ml 2 Ml Vial) 4 mg IV Q6H PRN PRN Reason: Nausea Stop: 04/21/20 22:58 Umeclidinium/Vilanterol (Umeclidinium/Vilanterol 62.5/25mcg 7 Puffs/Inhaler) 1 puffs INH QAM [facility] Stop: 04/22/20 08:59 Last Admin: 03/24/20 08:08 Dose: 1 puffs Documented by: Warfarin Sodium (Warfarin Sod 1 Mg Tab) 1 mg PO TuSa@1600 [facility] Stop: 04/24/20 15:59 Warfarin Sodium (Warfarin Sod 2 Mg Tab) 2 mg PO SuMoWeThFr@1600 [facility] Stop: 04/22/20 15:59 Last Admin: 03/23/20 16:35 Dose: 2 mg Documented by: PG Care Time/CCT Total # of Minutes Spent Total Time Spent with Patient: Total time spent is greater than 50% in coordination of care (as documented) at patient's floor/unit and/or counseling patient: Coding Level of Care Code 41856 Subseq Hosp Care Lvl 2 Diagnoses Acute and chronic respiratory failure J96.22 Respiratory failure complication: hypercapnia Paroxysmal atrial fibrillation I48.0 Diabetes type 2, controlled E11.9 Diabetes mellitus complication status: without complication Diabetes mellitus halfway insulin use: without terminal make up operator use Hypertension I10 Hypertension type: essential hypertension (1) Acute and chronic respiratory failure Respiratory failure complication: hypercapnia Qualified Code(s): J96.22 - Acute and chronic respiratory failure with hypercapnia (2) Diabetes type 2, controlled Diabetes mellitus complication status: without complication 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
[2020-03-24] MEDS: WARFARIN SOD 2 MG TAB PO SCH (16:35)
[2020-03-24] MEDS: CEFEPIME 2,000 MG in SYRINGE 0 ML IV SCH (20:41)
[2020-03-25] MEDS: ALBUT/IPRATROP 3MG/0.5MG NEB 3 ML VIAL INH SCH ×3 (03:09→10:45)
[2020-03-25 06:41] LABS: Base Excess ABG 15.4 mEq/L (-9-1.8); HCO3 ABG 41 mmol/L (19-24); Oxygen Saturation ABG 93.6 % (90-95); PCO2 ABG 63 mmHg (35-46); PO2 ABG 72 mmHg (80-95); pH ABG 7.44 (7.35-7.45)
[2020-03-25 06:42] LABS: Allen Test Pos (Pos)
[2020-03-25 06:45] LABS: Hematocrit (blood only) 27.4 % (37-47); Hemoglobin 8.1 g/dL (12.0-16.0); Mean Corpuscular Hgb Conc 29.6 g/dL (32-36); Mean Corpuscular Volume 94.8 fL (80-100); Mean Platelet Volume 9.4 fL (7.4-10.4); Platelet Count 300 K/uL (130-400); RDW Coefficient of Variation 14.1 % (11.5-14.5); Red Blood Count 2.89 M/uL (4.2-5.4); White Blood Count 10.87 K/uL (4.8-10.8)
[2020-03-25 07:59] LABS: BUN Creatinine Ratio 35.2 (10-20); Calcium 9.2 mg/dl (8.5-10.1); Creatinine Clr Calc Pharmacy 24.7 ml/min; Est GFR (African American) 42.1; Est GFR (Non-African American) 36.3; Potassium 4.2 mmol/L (3.5-5.1)
[2020-03-25] MEDS: methylPREDNISolone 30 MG in SYRINGE 0 ML IV SCH ×2 (08:15→19:58)
[2020-03-25] MEDS: INSULIN ASPART 100 UNITS/ML 3 ML PEN SC SCH ×4 (08:16→22:02)
[2020-03-25] MEDS: UMECLIDINIUM/VILANTEROL 62.5/25MCG 7 PUFFS/INHALER INH SCH (08:16)
[2020-03-25] MEDS: FLUTICASONE FUROATE 100MCG 14 PUFFS/INHALER INH SCH (08:16)
[2020-03-25] MEDS: MAGNESIUM OXIDE 400 MG TAB PO SCH (08:17)
[2020-03-25] MEDS: INSULIN GLARGINE SOLOSTAR 100 UNITS/ML 3 ML PEN SC SCH ×2 (08:17→22:00)
[2020-03-25] MEDS: dilTIAZem HCL 300 MG CAPCR PO SCH (08:17)
[2020-03-25] MEDS: NIACIN EXTENDED REL 500 MG TABCR PO SCH ×2 (08:17→21:58)
--- NOTE | 2020-03-25 08:50 | Hospitalist Progress Note ---
Date of Service March 25, 2020 Assessment & Plan (1) Acute and chronic respiratory failure: 80yo female with very severe COPD (FVC 0.81 L, 30%, FEV1 0.41 L, 21%, FEV1/FVC 51%) presenting with acute on chronic hypoxic hypercapnic respiratory failure. Patient has been declining over the last several days. Her states that she has been "lifeless" on 1/2 She uses home noninvasive ventilator - NIMV settings should be AVAPS-AE; Breath rate: auto; Inspiratory time:auto; Sigh: off; Tidal Volume: 350-450, PS min: 4- 10 PS max: 12-20; EPAP min: 6-10; EPAP max: 10-16; AVAPS rate: 14 during sleep and as needed ABG on BiPAP with acute on chronic respiratory failure. Covid-19 test performed in ER NEGATIVE as well as negative Influenza A and B -Goal oxygen saturations 88 - 92%, she normally wears 4L at home -DuoNebs q 4 hours -Albuterol q 2 hours as needed -Solumedrol : will decrease to 30mg q12 change to Prednisone tomorrow AM -Continue Fluticasone -Continue Umeclidinium/Vilanterol Cefepime IV x 5-7 days very alert and oriented today, PCO2 down to 63, pH is 7.44 continue BIPAP HS patient and her admit that she is not compliant, stressed to her the importance of this otherwise would recommend hospice as she will be a frequent re-admission with noncompliance (2) Paroxysmal atrial fibrillation: Patient with history of paroxysmal atrial fibrillation on diltiazem and anticoagulated with Coumadin. She follows regularly with anticoagulation clinic - last seen on 03/12/20. INR has been labile in setting of changing nutritional intake. -Continue current Coumadin dosing - 1mg on Tuesday/Tuesday and 2mg on Tuesday/Tuesday//Tuesday/Tuesday -INR still pending this morning -Continue Diltiazem 300mg po qAM -Telemetry monitoring, rates in 90's (3) Diabetes type 2, controlled: DM on oral agents - last [id number] on 10/12/19 -Hold Metformin -Lantus 5u BID with ISS monitor for hypoglycemia, no episodes glucose 189 this morning, was 300 yesterday afternoon changing to Prednisone tomorrow (4) Hypertension: Blood pressure stable -Continue diltiazem as above -Monitor F/E/N - monitor electrolytes and replete as needed, CC/Heart healthy diet as tolerated with aspiration precautions Ppx - On Coumadin as above Code - DNR/DNI Dispo - continue PCU for today get PT/OT to evaluate, try to get home tomorrow (5) Anemia: chronic issue but a little worse right now, Hb is 8.1 will fecal occult test if she has a BM repeat H/H tomorrow MCV is normal check iron studies tomorrow AM Admission and Anticipated Discharge Date Admission Date: March 22, 2020 Subjective patient doing much better today, she is alert, not confused she now admits that she wears 4L NC at home at all times she also admits to not wearing her BIPAP at home, stressed to her the importance of wearing this every night reviewed labs, pH is 7.44, CO2 is 63, so actually a little over corrected Hb down a little at 8.1, MCV normal, no melena seen, will order fecal occult testing Cr is 1.37 and electrolytes stable she is eating well, ate her entire breakfast plan for therapy today, might be ready to go home tomorrow if strong enought Review of Systems Review of Systems: All systems reviewed & are unremarkable except as noted in Subjective Physical Exam Constitutional: well developed, + thin, cooperative and comfortable; no acute distress Neck: trachea midline, no thyromegaly Respiratory: normal respiratory effort; no respiratory distress, no labored breathing, no cough and not tachypneic Auscultation: lungs clear to auscultation bilaterally and + diminished lung sounds Cardiovascular: RRR, no murmur, no edema Gastrointestinal (Abdomen): normal bowel sounds, soft, nontender, no hepatosplenomegaly Musculoskeletal: no cyanosis or clubbing, extremities motor strength 5/5 Skin: no rashes, warm and dry Neurologic: patellar DTR's 2+ bilat, sensation intact and PERRL, EOMI, accommodation nl, no face palsy, no dysarthria Psychiatric: A+Ox3, euthymic affect Lymphatic: no cervical or axillary lymphadenopathy Results & Data Results & Data ([facility]) Vital Signs (Past 12 Hours) Vital Signs Temp Pulse Pulse Resp BP BP Pulse Ox 03/25/20 07:33 36.3 C L 100 H 20 148/74 H 99 03/25/20 07:12 108 H 22 96 03/25/20 04:02 36.6 C 105 H 17 150/63 H 97 03/25/20 03:11 101 H 101 H 24 84 L 03/24/20 23:55 95 H 03/24/20 23:15 37.1 C 91 H 17 121/71 91 03/24/20 22:59 95 H 26 H 99 03/24/20 22:58 95 H 26 H 99 Laboratory Results Laboratory Results - last 24 hr 03/24/20 03/24/20 03/24/20 11:29 16:15 20:13 WBC RBC Hgb Hct MCV MCH MCHC RDW Std Deviation RDW Coeff of Nataly Plt Count MPV PT INR ABG pH ABG pCO2 ABG pO2 ABG HCO3 ABG O2 Saturation ABG Base Excess [place] Test Barometric Pressure Oxygen Given Sodium Potassium Chloride Carbon Dioxide Anion Gap BUN Creatinine Est Cr Clr Drug Dosing Est GFR ( Amer) Est GFR (Non-Af Amer) BUN/Creatinine Ratio Glucose POC Glucose 144 H 300 H 174 H Calcium 03/25/20 03/25/20 03/25/20 06:28 06:28 06:28 WBC 10.87 H RBC 2.89 L Hgb 8.1 L Hct 27.4 L MCV 94.8 MCH 28.0 MCHC 29.6 L RDW Std Deviation 48.0 H RDW Coeff of Nataly 14.1 Plt Count 300 MPV 9.4 PT Pending INR Pending ABG pH ABG pCO2 ABG pO2 ABG HCO3 ABG O2 Saturation ABG Base Excess [place] Test Barometric Pressure Oxygen Given Sodium Cancelled Potassium Cancelled Chloride Cancelled Carbon Dioxide Cancelled Anion Gap Cancelled BUN Cancelled Creatinine Cancelled Est Cr Clr Drug Dosing Cancelled Est GFR ( Amer) Cancelled Est GFR (Non-Af Amer) Cancelled BUN/Creatinine Ratio Cancelled Glucose Cancelled POC Glucose Calcium Cancelled 03/25/20 03/25/20 03/25/20 06:28 07:06 07:24 WBC RBC Hgb Hct MCV MCH MCHC RDW Std Deviation RDW Coeff of Nataly Plt Count MPV PT INR ABG pH 7.44 ABG pCO2 63 H ABG pO2 72 L ABG HCO3 41 H ABG O2 Saturation 93.6 ABG Base Excess 15.4 H [place] Test Pos Barometric Pressure 732.0 Oxygen Given 4L Sodium 138 Potassium 4.2 Chloride 93 L Carbon Dioxide 44 H* Anion Gap 1.0 L BUN 48 H Creatinine 1.37 H Est Cr Clr Drug Dosing 24.7 Est GFR ( Amer) 42.1 Est GFR (Non-Af Amer) 36.3 BUN/Creatinine Ratio 35.2 H Glucose 188 H POC Glucose 189 H Calcium 9.2 Medications Administered Current Inpatient Medications Acetaminophen (Acetaminophen 325 Mg Tab) 650 mg PO Q4H PRN PRN Reason: Pain or Fever Stop: 04/21/20 22:58 Albuterol (Albut/Ipratrop 3mg/0.5mg Neb 3 Ml Vial) 3 ml INH Q4R [facility] Stop: 04/21/20 22:59 Last Admin: 03/25/20 07:11 Dose: 3 ml Documented by: Albuterol (Albuterol 0.5% Neb Soln 2.5 Mg/0.5 Ml Vial) 2.5 mg NEB Q2H PRN PRN Reason: SOB/Wheeze Stop: 04/21/20 22:58 Dextrose (Dextrose 50% 50 Ml Syringe) 25 - 50 ml IV UD PRN; Protocol PRN Reason: Hypoglycemia Protocol Stop: 04/21/20 22:58 Diltiazem HCl (Diltiazem Hcl 300 Mg Capcr) 300 mg PO QAM [facility] Stop: 04/22/20 08:59 Last Admin: 03/25/20 08:17 Dose: 300 mg Documented by: Fluticasone Furoate (Fluticasone Furoate 100mcg 14 Puffs/Inhaler) 1 puffs INH QAM [facility] Stop: 04/22/20 08:59 Last Admin: 03/25/20 08:16 Dose: 1 puffs Documented by: Glucagon (Glucagon For Inj 1 Mg Vial) 1 mg SQ UD PRN; Protocol PRN Reason: Hypoglycemia Protocol Stop: 04/21/20 22:58 Glucose (Glucose 10 Tabs/Tube) 4 - 8 tabs PO UD PRN; Protocol PRN Reason: Hypoglycemia Protocol Stop: 04/21/20 22:58 Glucose (Glucose 40% Gel 15 Gm Tube) 15 - 30 gm PO UD PRN; Protocol PRN Reason: Hypoglycemia Protocol Stop: 04/21/20 22:58 Cefepime HCl 2,000 mg/ Syringe 20 mls @ 5 mls/min IV Q24H [facility]; Protocol Stop: 03/29/20 19:59 Last Admin: 03/24/20 20:41 Dose: 5 mls/min Documented by: Methylprednisolone 30 mg/ (Syringe) 0.48 mls @ 1.5 mls/min IV Q12 [facility] Stop: 04/23/20 20:59 Last Admin: 03/25/20 08:15 Dose: 1.5 mls/min Documented by: Insulin Aspart (Insulin Aspart 100 Units/Ml 3 Ml Pen) 0 units SC ACHS [facility] Stop: 04/21/20 22:58 Last Admin: 03/25/20 08:16 Dose: 5 units Documented by: Insulin Glargine (Insulin Glargine Solostar 100 Units/Ml 3 Ml Pen) 5 units SC BID [facility] Stop: 04/22/20 00:29 Last Admin: 03/25/20 08:17 Dose: 5 units Documented by: Magnesium Oxide (Magnesium Oxide 400 Mg Tab) 400 mg PO QAM [facility] Stop: 04/22/20 08:59 Last Admin: 03/25/20 08:17 Dose: 400 mg Documented by: Miscellaneous (Carbohydrates For Hypoglycemia ) 15 - 30 gm PO UD PRN PRN Reason: Hypoglycemia Protocol Stop: 04/21/20 22:58 Niacin (Niacin Extended Rel 500 Mg Tabcr) 500 mg PO BID [facility] Stop: 04/21/20 22:58 Last Admin: 03/25/20 08:17 Dose: 500 mg Documented by: Ondansetron HCl (Ondansetron Inj 2 Mg/Ml 2 Ml Vial) 4 mg IV Q6H PRN PRN Reason: Nausea Stop: 04/21/20 22:58 Umeclidinium/Vilanterol (Umeclidinium/Vilanterol 62.5/25mcg 7 Puffs/Inhaler) 1 puffs INH QAM [facility] Stop: 04/22/20 08:59 Last Admin: 03/25/20 08:16 Dose: 1 puffs Documented by: Warfarin Sodium (Warfarin Sod 1 Mg Tab) 1 mg PO TuSa@1600 [facility] Stop: 04/24/20 15:59 Warfarin Sodium (Warfarin Sod 2 Mg Tab) 2 mg PO SuMoWeThFr@1600 [facility] Stop: 04/22/20 15:59 Last Admin: 03/24/20 16:35 Dose: 2 mg Documented by: PG Care Time/CCT Total # of Minutes Spent Total Time Spent with Patient: Total time spent is greater than 50% in coordination of care (as documented) at patient's floor/unit and/or counseling patient: Coding Level of Care Code 81098 Subseq Hosp Care Lvl 3 Diagnoses Acute and chronic respiratory failure J96.22 Respiratory failure complication: hypercapnia Paroxysmal atrial fibrillation I48.0 Diabetes type 2, controlled E11.9 Diabetes mellitus medical terminologist insulin use: without longterm use Diabetes mellitus complication status: without complication Hypertension I10 Hypertension type: essential hypertension Anemia D64.9 (1) Acute and chronic respiratory failure Respiratory failure complication: hypercapnia Qualified Code(s): J96.22 - Acute and chronic respiratory failure with hypercapnia (2) Diabetes type 2, controlled Diabetes mellitus medical terminologist insulin use: without longterm use Diabetes mellitus complication status: without complication Qualified Code(s): E11.9 - Type 2 diabetes mellitus without complications (3) Hypertension Hypertension type: essential hypertension Qualified Code(s): I10 - Essential (primary) hypertension
[2020-03-25 09:40] LABS: INR 1.9 (0.9-1.1); Prothrombin Time 19.8 Seconds (9.0-12.0)
[2020-03-25] MEDS ORDERED: ALBUT/IPRATROP 3MG/0.5MG NEB 3 ML VIAL INH PRN (13:40)
[2020-03-25] MEDS ORDERED: WARFARIN SOD 1 MG TAB PO SCH (16:00)
[2020-03-25] MEDS: CEFEPIME 2,000 MG in SYRINGE 0 ML IV SCH (19:58)
--- NOTE | 2020-03-25 20:41 | XRay Report ---
XR chest 1V portable CLINICAL HISTORY: Shortness of breath. COMPARISON STUDY: Chest CT May 21, 2019. Chest radiograph March 22, 2020. FINDINGS: Left hemithorax volume loss is unchanged. Left basilar opacity is chronic. Small bilateral pleural effusions persist. There is no pneumothorax. Interstitial thickening and bilateral opacities have slightly decreased. IMPRESSION: 1. Slight decrease in interstitial thickening and bilateral airspace opacities which could reflect pu lmonary edema or an infectious process superimposed upon interstitial lung disease. 2. Small bilateral pleural effusions. ACT 112: Negative or not required by law. Electronically signed by: Cole Buckner M.D. 03/25/2020 8:40 PM
[2020-03-26 07:08] LABS: Ferritin 88.1 ng/ml (8-388)
[2020-03-26] MEDS: INSULIN ASPART 100 UNITS/ML 3 ML PEN SC SCH ×4 (08:42→20:45)
[2020-03-26] MEDS: INSULIN GLARGINE SOLOSTAR 100 UNITS/ML 3 ML PEN SC SCH ×2 (08:43→20:45)
[2020-03-26] MEDS: FLUTICASONE FUROATE 100MCG 14 PUFFS/INHALER INH SCH (08:44)
[2020-03-26] MEDS: UMECLIDINIUM/VILANTEROL 62.5/25MCG 7 PUFFS/INHALER INH SCH (08:44)
[2020-03-26] MEDS: dilTIAZem HCL 300 MG CAPCR PO SCH (08:45)
[2020-03-26] MEDS: NIACIN EXTENDED REL 500 MG TABCR PO SCH ×2 (08:45→20:25)
[2020-03-26] MEDS: MAGNESIUM OXIDE 400 MG TAB PO SCH (08:45)
[2020-03-26] MEDS: dilTIAZem HCL 120 MG CAPCR PO SCH (08:45)
[2020-03-26] MEDS: predniSONE 20 MG TAB PO SCH (08:45)
[2020-03-26] MEDS: WARFARIN SOD 2 MG TAB PO SCH (16:59)
--- NOTE | 2020-03-26 17:06 | Hospitalist Progress Note ---
Date of Service March 26, 2020 Assessment & Plan (1) Acute and chronic respiratory failure: 80yo female with very severe COPD (FVC 0.81 L, 30%, FEV1 0.41 L, 21%, FEV1/FVC 51%) presenting with acute on chronic hypoxic hypercapnic respiratory failure. Patient has been declining over the last several days. Her states that she has been "lifeless" on 1/2 She uses home noninvasive ventilator - NIMV settings should be AVAPS-AE; Breath rate: auto; Inspiratory time:auto; Sigh: off; Tidal Volume: 350-450, PS min: 4- 10 PS max: 12-20; EPAP min: 6-10; EPAP max: 10-16; AVAPS rate: 14 during sleep and as needed ABG on BiPAP with acute on chronic respiratory failure. Covid-19 test performed in ER NEGATIVE as well as negative Influenza A and B -Goal oxygen saturations 88 - 92%, she normally wears 4L at home -DuoNebs q 4 hours -Albuterol q 2 hours as needed -Solumedrol : will decrease to 30mg q12 change to Prednisone 40mg daily, complete 4 more days after today -Continue Fluticasone -Continue Umeclidinium/Vilanterol Cefepime IV while here, no need for antibiotics after discharge very alert and oriented today, PCO2 down to 63, pH is 7.44 continue BIPAP HS patient and her admit that she is not compliant, stressed to her the importance of this otherwise would recommend hospice as she will be a frequent re-admission with noncompliance (2) Paroxysmal atrial fibrillation: Patient with history of paroxysmal atrial fibrillation on diltiazem and anticoagulated with Coumadin. She follows regularly with anticoagulation clinic - last seen on 03/12/20. INR has been labile in setting of changing nutritional intake. -Continue current Coumadin dosing - 1mg on Tuesday/Tuesday and 2mg on Tuesday/Tuesday//Tuesday/Tuesday -INR still pending this morning - increase Diltiazem to 420mg po qAM due to rates jumping to 140's this morning (3) Diabetes type 2, controlled: DM on oral agents - last [id number] on 10/12/19 -Hold Metformin -Lantus 5u BID with ISS sugars elevated with Prednisone tighten correction factor and carb ratio (4) Hypertension: Blood pressure stable -Continue diltiazem as above -Monitor F/E/N - monitor electrolytes and replete as needed, CC/Heart healthy diet as tolerated with aspiration precautions Ppx - On Coumadin as above Code - DNR/DNI Dispo - continue PCU for today get PT/OT to evaluate, try to get home tomorrow (5) Anemia: chronic issue but a little worse right now, Hb is 8.1 will fecal occult test if she has a BM repeat H/H tomorrow MCV is normal check iron studies tomorrow AM Admission and Anticipated Discharge Date Admission Date: March 22, 2020 Subjective patient doing well, breathing is back to baseline HR is afib, rates jumping to 140's this AM prior to medications, will increase Diltiazem to 420mg, see how she does plan to go home tomorrow eating and drinking okay she is at baseline functional status per therapy Review of Systems Review of Systems: All systems reviewed & are unremarkable except as noted in Subjective Physical Exam Constitutional: well developed, + thin, cooperative and comfortable; no acute distress Neck: trachea midline, no thyromegaly Respiratory: normal respiratory effort; no respiratory distress, no labored breathing, no cough and not tachypneic Auscultation: lungs clear to auscultation bilaterally and + diminished lung sounds Cardiovascular: Rate/Rhythm: + tachycardic and + irregularly irregular Heart Sounds: normal S1 and normal S2; no murmur Extremities: normal capillary refill; no edema Gastrointestinal (Abdomen): normal bowel sounds, soft, nontender, no hepatosplenomegaly Musculoskeletal: no cyanosis or clubbing, extremities motor strength 5/5 Skin: no rashes, warm and dry Neurologic: patellar DTR's 2+ bilat, sensation intact and PERRL, EOMI, accommodation nl, no face palsy, no dysarthria Psychiatric: A+Ox3, euthymic affect Lymphatic: no cervical or axillary lymphadenopathy Results & Data Results & Data ([facility]) Vital Signs (Past 12 Hours) Vital Signs Temp Pulse Pulse Resp BP Pulse Ox 03/26/20 15:03 36.6 C 100 H 16 125/67 97 03/26/20 14:52 94 H 03/26/20 11:16 37.1 C 105 H 18 120/76 96 03/26/20 07:30 98 H 03/26/20 07:23 36.6 C 102 H 18 139/61 95 Laboratory Results Laboratory Results - last 24 hr 03/25/20 03/25/20 03/26/20 20:17 20:18 06:07 POC Glucose 313 H* 305 H* Iron 46 Ferritin 88.1 03/26/20 03/26/20 03/26/20 07:50 11:51 16:53 POC Glucose 250 H 263 H 158 H Iron Ferritin Medications Administered Current Inpatient Medications Acetaminophen (Acetaminophen 325 Mg Tab) 650 mg PO Q4H PRN PRN Reason: Pain or Fever Stop: 04/21/20 22:58 Albuterol (Albuterol 0.5% Neb Soln 2.5 Mg/0.5 Ml Vial) 2.5 mg NEB Q2H PRN PRN Reason: SOB/Wheeze Stop: 04/21/20 22:58 Albuterol (Albut/Ipratrop 3mg/0.5mg Neb 3 Ml Vial) 3 ml INH Q4H PRN PRN Reason: Shortness Of Breath Or Wheezing Stop: 04/24/20 13:39 Dextrose (Dextrose 50% 50 Ml Syringe) 25 - 50 ml IV UD PRN; Protocol PRN Reason: Hypoglycemia Protocol Stop: 04/21/20 22:58 Diltiazem HCl (Diltiazem Hcl 300 Mg Capcr) 300 mg PO QAM [facility] Stop: 04/25/20 08:59 Last Admin: 03/26/20 08:45 Dose: 300 mg Documented by: Diltiazem HCl (Diltiazem Hcl 120 Mg Capcr) 120 mg PO QAM [facility] Stop: 04/25/20 08:59 Last Admin: 03/26/20 08:45 Dose: 120 mg Documented by: Fluticasone Furoate (Fluticasone Furoate 100mcg 14 Puffs/Inhaler) 1 puffs INH QAM [facility] Stop: 04/22/20 08:59 Last Admin: 03/26/20 08:44 Dose: 1 puffs Documented by: Glucagon (Glucagon For Inj 1 Mg Vial) 1 mg SQ UD PRN; Protocol PRN Reason: Hypoglycemia Protocol Stop: 04/21/20 22:58 Glucose (Glucose 10 Tabs/Tube) 4 - 8 tabs PO UD PRN; Protocol PRN Reason: Hypoglycemia Protocol Stop: 04/21/20 22:58 Glucose (Glucose 40% Gel 15 Gm Tube) 15 - 30 gm PO UD PRN; Protocol PRN Reason: Hypoglycemia Protocol Stop: 04/21/20 22:58 Cefepime HCl 2,000 mg/ Syringe 20 mls @ 5 mls/min IV Q24H [facility]; Protocol Stop: 03/29/20 19:59 Last Admin: 03/25/20 19:58 Dose: 5 mls/min Documented by: Insulin Aspart (Insulin Aspart 100 Units/Ml 3 Ml Pen) 0 units SC ACHS [facility] Stop: 04/21/20 22:58 Last Admin: 03/26/20 12:19 Dose: 6 units Documented by: Insulin Glargine (Insulin Glargine Solostar 100 Units/Ml 3 Ml Pen) 5 units SC BID [facility] Stop: 04/22/20 00:29 Last Admin: 03/26/20 08:43 Dose: 5 units Documented by: Magnesium Oxide (Magnesium Oxide 400 Mg Tab) [facility] [place] Stop: 04/22/20 08:59 Last Admin: 03/26/20 08:45 Dose: 400 mg Documented by: Miscellaneous (Carbohydrates For Hypoglycemia ) 15 - 30 gm PO UD PRN PRN Reason: Hypoglycemia Protocol Stop: 04/21/20 22:58 Niacin (Niacin Extended Rel 500 Mg Tabcr) 500 mg PO BID [facility] Stop: 04/21/20 22:58 Last Admin: 03/26/20 08:45 Dose: 500 mg Documented by: Ondansetron HCl (Ondansetron Inj 2 Mg/Ml 2 Ml Vial) 4 mg IV Q6H PRN PRN Reason: Nausea Stop: 04/21/20 22:58 Prednisone (Prednisone 20 Mg Tab) [facility] [place] Stop: 04/25/20 08:59 Last Admin: 03/26/20 08:45 Dose: 40 mg Documented by: Umeclidinium/Vilanterol (Umeclidinium/Vilanterol 62.5/25mcg 7 Puffs/Inhaler) [facility] [place] Stop: 04/22/20 08:59 Last Admin: 03/26/20 08:44 Dose: 1 puffs Documented by: Warfarin Sodium (Warfarin Sod 1 Mg Tab) 1 mg PO TuSa@1600 [facility] Stop: 04/24/20 15:59 Last Admin: 03/25/20 17:05 Dose: 1 mg Documented by: Warfarin Sodium (Warfarin Sod 2 Mg Tab) 2 mg PO SuMoWeThFr@1600 [facility] Stop: 04/22/20 15:59 Last Admin: 03/24/20 16:35 Dose: 2 mg Documented by: PG Care Time/CCT Total # of Minutes Spent Total Time Spent with Patient: Total time spent is greater than 50% in coordination of care (as documented) at patient's floor/unit and/or counseling patient: Coding Level of Care Code 42017 Subseq Hosp Care Lvl 2 Diagnoses Acute and chronic respiratory failure J96.22 Respiratory failure complication: hypercapnia Paroxysmal atrial fibrillation I48.0 Diabetes type 2, controlled E11.9 Diabetes mellitus assisted insulin use: without tank terminal gauger use Diabetes mellitus complication status: without complication Hypertension I10 Hypertension type: essential hypertension Anemia D64.9 (1) Acute and chronic respiratory failure Respiratory failure complication: hypercapnia Qualified Code(s): J96.22 - Acute and chronic respiratory failure with hypercapnia (2) Diabetes type 2, controlled Diabetes mellitus tank terminal gauger insulin use: without tank terminal gauger use Diabetes mellitus complication status: without complication Qualified Code(s): E11.9 - Type 2 diabetes mellitus without complications (3) Hypertension Hypertension type: essential hypertension Qualified Code(s): I10 - Essential (primary) hypertension
[2020-03-26] MEDS: CEFEPIME 2,000 MG in SYRINGE 0 ML IV SCH (20:25)
[2020-03-27 06:24] LABS: Prothrombin Time 29.8 Seconds (9.0-12.0)
[2020-03-27] MEDS: INSULIN ASPART 100 UNITS/ML 3 ML PEN SC SCH ×2 (08:26→12:03)
[2020-03-27] MEDS: NIACIN EXTENDED REL 500 MG TABCR PO SCH (08:28)
[2020-03-27] MEDS: predniSONE 20 MG TAB PO SCH (08:29)
[2020-03-27] MEDS: dilTIAZem HCL 120 MG CAPCR PO SCH (08:30)
[2020-03-27] MEDS: MAGNESIUM OXIDE 400 MG TAB PO SCH (08:30)
[2020-03-27] MEDS: UMECLIDINIUM/VILANTEROL 62.5/25MCG 7 PUFFS/INHALER INH SCH (08:31)
[2020-03-27] MEDS: dilTIAZem HCL 300 MG CAPCR PO SCH (08:31)
[2020-03-27] MEDS: FLUTICASONE FUROATE 100MCG 14 PUFFS/INHALER INH SCH (08:32)
[2020-03-27] MEDS: INSULIN GLARGINE SOLOSTAR 100 UNITS/ML 3 ML PEN SC SCH (08:36)
--- NOTE | 2020-03-27 11:48 | Discharge Summary ---
Date of Service March 27, 2020 Admission HPI Per Admitting Provider Joyce Mcclendon is an 80yo C female with history of COPD on home O2 2-4L, HTN, HLP, DM presenting from home with 2 days of functional decline. Her is at bedside and states that she has been somnolent and "lifeless" today. She has not been eating or drinking well at home. She denies fevers, chills, chest pain, vomiting, diarrhea. She has a slight cough with sputum. No additional complaints at this time. On arrival to the ER patient afebrile, tachycardic at 127, mildly hypertensive, tachypneic and saturating 91% on 4L. She was weak and minimally responsive and was started on BiPAP. ABG on 02/08, 50% was 7.32// ER Course: Lasix 20mg, Cefepime 2gm, ALbuterol 12mL neb, Dexamethasone 10mg IV, NSS x 500 Principal Diagnosis Acute and chronic hypoxic and hypercapnic respiratory failure Discharge Exam Constitutional well developed, + thin, cooperative and comfortable; no acute distress Neck trachea midline, no thyromegaly Respiratory normal respiratory effort; no respiratory distress, no labored breathing, no cough and not tachypneic Auscultation: lungs clear to auscultation bilaterally and + diminished lung sounds Cardiovascular RRR, no murmur, no edema Rate/Rhythm: + tachycardic and + irregularly irregular Heart Sounds: normal S1 and normal S2; no murmur Extremities: normal capillary refill; no edema Gastrointestinal (Abdomen) normal bowel sounds, soft, nontender, no hepatosplenomegaly Musculoskeletal no cyanosis or clubbing, extremities motor strength 5/5 Skin no rashes, warm and dry Neurologic patellar DTR's 2+ bilat, sensation intact and PERRL, EOMI, accommodation nl, no face palsy, no dysarthria Psychiatric A+Ox3, euthymic affect Lymphatic no cervical or axillary lymphadenopathy Discharge Data Allergies Allergy/AdvReac Type Severity Reaction Status Date / Time Gqhctlb-Vqq-Huk Reductase Allergy Unknown Verified 04/01/20 08:31 Inhibitor Consultations 03/22/20 20:07 ED Decision to Admit Stat Hospital Course (1) Acute and chronic respiratory failure: 80yo female with very severe COPD (FVC 0.81 L, 30%, FEV1 0.41 L, 21%, FEV1/FVC 51%) presenting with acute on chronic hypoxic hypercapnic respiratory failure. Patient has been declining over the last several days. Her states that she has been "lifeless" on 03/22 She uses home noninvasive ventilator - NIMV settings should be AVAPS-AE; Breath rate: auto; Inspiratory time:auto; Sigh: off; Tidal Volume: 350-450, PS min: 4- 10 PS max: 12-20; EPAP min: 6-10; EPAP max: 10-16; AVAPS rate: 14 during sleep and as needed ABG on BiPAP with acute on chronic respiratory failure. Covid-19 test performed in ER NEGATIVE as well as negative Influenza A and B -Goal oxygen saturations 88 - 92%, she normally wears 4L at home, stable on 4L for 3 days now -DuoNebs q 4 hours -Albuterol q 2 hours as needed -Solumedrol : decreased to 30mg q12 for two days prior to discharge, no wheezing, no dyspnea changed to Prednisone 20mg daily for 3 more days, feel that her main issue was not wearing NIMV at home as instructed -Continue Fluticasone -Continue Umeclidinium/Vilanterol Cefepime IV while here, no need for antibiotics after discharge very alert and oriented after using BIPAP, PCO2 down to 63, pH 7.44 continue BIPAP HS patient and her admit that she is not compliant, stressed to her the importance of this otherwise would recommend hospice as she will be a frequent re-admission with noncompliance (2) Paroxysmal atrial fibrillation: Patient with history of paroxysmal atrial fibrillation on diltiazem and anticoagulated with Coumadin. She follows regularly with anticoagulation clinic - last seen on 03/12/20. INR has been labile in setting of changing nutritional intake. -Continue current Coumadin dosing - 1mg on Tuesday/Tuesday and 2mg on Tuesday/Tuesday//Tuesday/Tuesday -INR 3.0 on discharge - increased Diltiazem to 420mg po qAM due to rates jumping to 140's day prior to discharge, much more stable the past 24 hours on higher dose continue Coumadin, continue Diltiazem 420mg daily on discharge (3) Diabetes type 2, controlled: DM on oral agents - last JeuF5W=6.6 on 10/12/19 -Hold Metformin -Lantus 5u BID with ISS sugars elevated with Prednisone tighten correction factor and carb ratio dropped to Prednisone 20mg daily for 3 days, would not anticipate this to affect sugars too much (4) Hypertension: Blood pressure stable -Continue diltiazem as above -Monitor get PT/OT evaluated stable to go home (5) Anemia: chronic issue MCV is normal irone studies are unremarkable Total Time Total Time Spent Total Time Spent (In Minutes): 32 minutes Total Time Includes: Examination of the Patient, Discharge Planning and Medication Reconciliation Discharge Plan Discharge Items Patient Disposition: Home - Home Health Services Reason For Visit: ACUTE ON CHRONIC RESPIRATORY FAILURE Discharge Diagnosis: Acute on chronic hypoxic and hypercapnic respiratory failure COPD exacerbation Atrial fibrillation Condition on Discharge: Good Goals: use your pressure mask EVERY night Activity: Resume your previous activity Weightbearing: Full weightbearing Non-emergency contact: Primary Care Provider Call non-emergency contact if: you have any medication questions and your symptoms worsen Follow-up/Referrals: Matias Ram III, MD [Primary Care Provider] - 04/01/20 8:30 am (one week YOUR APPOINTMENT WILL BE WITH FREDY DOTY) Diet: Carb Consistent or DM2 Addtl Attending Provider Instructions: Medications: - CARDIZEM: dose increased to 420mg daily for better hear rate control, working well in the hospital, continue on discharge - PREDNISONE: 20mg daily for next three days, start tomorrow morning Acute on chronic hypoxic and hypercapnic respiratory failure, resolved main issue was elevated carbon dioxide level that was causing you to be drowsy I cannot stress enough the importance of wearing the positive pressure mask EVERY SINGLE NIGHT you were compliant with BIPAP here in the hospital and your carbon dioxide quickly returned to normal and you were alert finish a brief course of Prednisone 20mg daily for three days, you received IV steroids in the hospital no further need for antibiotics on discharge Atrial fibrillation: as noted above, Cardizem dose increased to 420mg daily, new script sent to pharmacy, start tomorrow morning continue Coumadin as prescribed, INR is 3.0 today Pending Studies at Discharge: No Stand-Alone Forms: My [facility] [employer], Smoking Cessation Medications and DC Order Prescriptions: New diltiazem HCl 420 mg capsule,extended release 24 hr 420 mg PO DAILY Qty: 30 RF: 3 Continued warfarin 1 mg tablet See Rx Instructions PO DAILY RF: 0 multivitamin Tablet 1 tab PO QAM RF: 0 metformin 500 mg tablet 500 mg PO BID Qty: 180 RF: 3 (DME) lancets [OneTouch Delica Lancets] 33 gauge misc See Rx Instructions .ROUTE .MEDSUPPLY Qty: 100 RF: 5 risedronate 35 mg tablet 35 mg PO WK Qty: 4 RF: 11 niacin 500 mg tablet extended release 24 hr 500 mg PO BID Qty: 180 RF: 3 (DME) OneTouch Verio test strips Strip See Rx Instructions .ROUTE .MEDSUPPLY Qty: 50 RF: 5 (DME) Flutter Valve Device See Rx Instructions .ROUTE .MEDSUPPLY Qty: 1 RF: 0 albuterol sulfate 90 mcg/actuation HFA aerosol inhaler 2 puff INH Q6H PRN (Reason: Shortness Of Breath Or Wheezing) Qty: 18 RF: 2 ipratropium-albuterol 0.5 mg-3 mg(2.5 mg base)/3 mL solution for nebulization 3 ml INH Q8H PRN (Reason: shortness of breath or wheezing) Qty: 180 RF: 3 [place]-3 Fish Oil 300-1,000 mg Capsule 1 cap PO QAM RF: 0 cyanocobalamin (vitamin B-12) 1,000 mcg Capsule 1,000 mcg PO QAM RF: 0 cholecalciferol (vitamin D3) [Vitamin D3] 1,000 unit Tablet 1,000 unit PO QAM RF: 0 magnesium oxide 250 mg magnesium tablet 250 mg PO QAM RF: 0 Trelegy Ellipta 100-62.5-25 mcg blister with device 1 inh inhalation QAM RF: 0 Discontinued diltiazem HCl 300 mg capsule,extended release 24hr 300 mg PO QAM Qty: 90 RF: 3 No Action prednisone 20 mg tablet 20 mg PO UD Qty: 11 RF: 0 insulin NPH isoph U-100 human 100 unit/mL (3 mL) insulin pen 25 unit subcut UD 10 Days Qty: 2.5 RF: 1 Discharge Orders: Discharge Order (Routine); Ordered 03/27/20 Ordered By: Milo Lopez Admission Data Admit Date/Time: 03/22/20 20:44 Attending Provider: Milo Lopez Admit Provider: Bel Peña Primary Care Provider: Matias Ram III Other Providers: Bel Peña ; [place],Home [facility] Other Interventions: Discharge Summary Assessment (RN) Last Done: 03/27/20 12:12 Coding Level of Care Code D/C Day Management >30 mins Diagnoses Acute and chronic respiratory failure J96.22 Respiratory failure complication: hypercapnia Paroxysmal atrial fibrillation I48.0 Diabetes type 2, controlled E11.9 Diabetes mellitus complication status: without complication Diabetes mellitus retirement insulin use: without retirement use Hypertension I10 Hypertension type: essential hypertension Anemia D64.9
== END 2020-03-27 14:08 | disposition home health service (06) | DRG 190 ==
LOC: ED 17:25 → SUATTDRO 20:44 → 2S 20:44

== ENCOUNTER 2020-03-29 00:13 | Inpatient (IN) ==
[2020-03-29] MEDS ORDERED: methylPREDNISolone 125 MG/2 ML VIAL IV STA (00:34)
[2020-03-29] MEDS ORDERED: ALBUT/IPRATROP 3MG/0.5MG NEB 3 ML VIAL NEB STA (00:39)
[2020-03-29 00:59] LABS: Eosinophils # (auto) 0.02 K/uL (0-0.5); Eosinophils % (auto) 0.2 %; Hematocrit (blood only) 29.8 % (37-47); Hemoglobin 8.9 g/dL (12.0-16.0); Immature Granulocytes # (auto) 0.03 K/uL (0.00-0.02); Immature Granulocytes % (auto) 0.3 %; Lymphocytes % (auto) 4.2 %; Mean Corpuscular Hgb Conc 29.9 g/dL (32-36); Mean Corpuscular Volume 97.1 fL (80-100); Mean Platelet Volume 9.2 fL (7.4-10.4); Neutrophils # (auto) 9.03 K/uL (1.4-6.5); Neutrophils % (auto) 94.3 %; Platelet Count 294 K/uL (130-400); RDW Coefficient of Variation 14.5 % (11.5-14.5); RDW Standard Deviation 50.7 fL (36.4-46.3); Red Blood Count 3.07 M/uL (4.2-5.4); White Blood Count 9.58 K/uL (4.8-10.8)
--- NOTE | 2020-03-29 01:07 | Emergency Department Note ---
ED Visit Note NAME: GENA BETTENCOURT AGE: 80 SEX: F ARRIVES VIA: Walk-In INFORMANT: Patient ED PROVIDER(S): Kayla Fitzpatrick MD CHIEF COMPLAINT: Shortness of breath x1 week PLAN: Disposition: Admission Condition: Fair MEDICAL DECISION MAKING: This patient was evaluated and appeared to be in no significant distress on 6 L nasal cannula oxygen. Patient has distant breath sounds bilaterally with rhonchi appreciated. She was given 60 mg of IV Solu-Medrol and a DuoNeb millie tment. Chest x-ray was performed and reveals more prominent interstitium with advanced COPD and bilateral pleural effusions. Covid swab is negative. Patient did receive cefepime in the hospital last week. As the patient is afebrile with a normal white count, blood cultures were sent and whether or not to administer antibiotics will be deferred to the hospitalist. Given the patient's hypoxia on arrival and overall poor COPD control, she will be evaluated for admission and further management. Patient is aware of the plan and agrees. IMPRESSION: COPD exacerbation, hypoxia Triage Nursing notes reviewed. Prior medical records reviewed Differential diagnosis: Reactive airway disease, pneumonia, pneumothorax, COPD, CHF, infections, cardiac ischemia, pulmonary embolism, musculoskeletal, gastrointestinal, as well as other pathologies. ER treatment provided: IV Solu-Medrol, DuoNeb Diagnostics interpreted by me: ECG: EKG to my interpretation reveals a sinus tachycardia at 107 bpm with PVC and PAC. QTc is normal at 413, ST segments are normal with T wave abnormality in the anterior leads. Cardiac Monitoring: An order for cardiac monitoring was placed and the patient is noted to be in a sinus tachycardia with frequent ectopy on 115 bpm. Laboratory studies: WBC of 9.58, hemoglobin of 8.9 with INR of 2.3. Glucose is 402. Imaging studies: Chest x-ray to my interpretation reveals evidence of advanced COPD, interstitial prominence now present in the right lower lung field when compared to 4 days ago. Bilateral pleural effusions. Consultation(s): Hospitalist, Dr. Bailey HPI: 80/F arrives for evaluation of COPD on home oxygen presents to the emergency department with complaints of shortness of breath, dry cough. She states she has had an increase in shortness of breath for the last week. She denies any known Covid exposures, fevers or productive cough but admits to a dry cough. She denies any chest discomfort. She has been using her home 4 L of nasal cannula oxygen but has difficulty, particularly with exertion. Patient has advanced COPD and wears 4 L of home oxygen however has had increased shortness of breath despite her oxygen therapy. The patient was recently hospitalized for 5 days and discharged on March 27. She denies any known Covid exposure, fever or productive cough but states her nebulizer treatments are not enough. She did receive antibiotics in the hospital. She states her drove her here today as she was not able to get her breathing under control. Her breathing is much worse with any exertion. Patient states she does not currently smoke but did 20 years ago. She denies any bleeding from the rectum. Patient is noted to have some bruising along the upper back but denies any known falls. ROS: See above HPI for pertinent positives & negatives. A total of 10 systems reviewed and were otherwise negative. PAST MEDICAL HISTORY:COPD on home oxygen, paroxysmal atrial fib, type 2 diabetes, obstructive sleep apnea, leukocytosis, hyperlipidemia, anemia, hypertension, anxiety, osteopenia PAST SURGICAL HISTORY:Colonoscopy, ankle surgery SOCIAL HISTORY:Previous smoker greater than 20 years ago, lives at home with her HOME MEDICATIONS:Reviewed, see below ALLERGIES: Statins PHYSICAL EXAMINATION: Vital signs reviewed. Noted to be tachycardic and hypoxic on home O2 General: Chronically ill-appearing 80-year-old female, in no significant distress. HEENT: No scleral icterus, PERRLA, neck supple. Pale conjunctiva. Cardiovascular: Tachycardic with occasional ectopy. No extra sounds Pulmonary: Distant lung sounds bilaterally with rhonchi. On nasal cannula oxygen, increased work of breathing Abdomen: Soft, nontender, nondistended, positive bowel sounds. Musculoskeletal: Atraumatic, no peripheral edema. Neurologic: Patient awake alert and oriented x 3 Skin: Warm, dry, no rash Kayla Fitzpatrick MD .
[2020-03-29 01:10] LABS: INR 2.3 (0.9-1.1); Partial Thromboplastin Ratio 1.1; Partial Thromboplastin Time 30.4 Seconds (21.0-31.0); Prothrombin Time 22.9 Seconds (9.0-12.0)
[2020-03-29 01:31] LABS: Alanine Aminotransferase 112 U/L (12-78); Albumin Globulin Ratio 0.7 (0.9-2); Albumin Level 2.9 gm/dl (3.4-5.0); Alkaline Phosphatase 167 U/L (45-117); Aspartate Aminotransferase 67 U/L (15-37); BUN Creatinine Ratio 30.9 (10-20); Bilirubin,Total 0.4 mg/dl (0.2-1); Blood Urea Nitrogen 45 mg/dl (7-18); Calcium 9.3 mg/dl (8.5-10.1); Carbon Dioxide 37 mmol/L (21-32); Chloride 96 mmol/L (98-107); Est GFR (African American) 39.7; Est GFR (Non-African American) 34.2; Globulin 3.9 gm/dl (2.5-4.0); Glucose 402 mg/dl (70-99); Potassium 4.4 mmol/L (3.5-5.1); Sodium 138 mmol/L (136-145); Total Protein 6.8 gm/dl (6.4-8.2)
[2020-03-29 01:52] LABS: Beta-Hydroxybutyrate 1.73 mg/dl (0.2-2.81)
[2020-03-29] MEDS ORDERED: NovoLIN-R INSULIN PER UNIT CHARGE SC STA (02:07)
--- NOTE | 2020-03-29 04:11 | History & Physical Report ---
Date of Service March 29, 2020 Assessment & Plan (1) Acute and chronic respiratory failure: Joyce Mcclendon is an 80yo C female with history of COPD on home O2 4L, paroxysmal afib on warfarin, HTN, HLP, DM, recent hospitalization here 03/22-03/27, who presents with CC of shortness of breath. -She has been non-compliant with home BiPAP. Most likely cause for worsening dyspnea at home. -Oxygen increased from baseline of 4L to 6L with goal saturation 88-92% -Currently resting with comfort and will def scheduled nebs at this time. -DuoNebs q4h PRN -Albuterol q 2 hours as needed -Solumedrol 30mg q12h, which was most recent wean prior to oral Prednisone use. -Continue Fluticasone -Continue Umeclidinium/Vilanterol - Wear bipap at night. - No signs of infectious process. FENGI: Heart healthy, DM2. Pepcid for GI ppx since on steroids. DVT ppx: on Warfarin, therapeutic on admission Code: DNR/DNI Dispo: Full admit, med/surg tele (2) Paroxysmal atrial fibrillation: elevated rate most likely exacerbated by compensation for resp failure, albuterol, prednisone. Unsure of compliance with Diltiazem at home. C/w home dose of Diltiazem 420mg PO daily. Will try to treat hyperglycemia first then see if rate improves. She is currently asymptomatic, states at usual baseline. (3) Anticoagulated on warfarin: c/w home Warfarin dosage therapeutic on presentation 2.3 follow INR (4) Diabetes type 2, controlled: significantly elevated glucose in ED of 400 in setting of steroid use. Pharmacy consult order placed for appropriate control (5) YIMI (obstructive sleep apnea): Non-compliance, she uses home noninvasive ventilator - NIMV settings should be AVAPS-AE; Breath rate: auto; Inspiratory time:auto; Sigh: off; Tidal V olume: 350-450, PS min: 4-10 PS max: 12-20; EPAP min: 6-10; EPAP max: 10-16; AVAPS rate: 14 during sleep and as needed (6) Chronic respiratory failure with hypoxia and hypercapnia: (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 History of Present Illness Chief Complaint: Dyspnea Primary Care Provider: Matias Ram MD Caveat: History Limited by - Patient is a vague historian. Joyce Mcclendon is an 80yo C female with history of COPD on home O2 4L, paroxysmal afib on warfarin, HTN, HLP, DM, recent hospitalization here 03/22-03/27, who presents with CC of shortness of breath. Onset was for about the past 2 days since discharge from hospital. She has had increased shortness of breath and also a non-productive cough. She has been non-compliant with home BiPAP. No fevers, chills, nausea, vomiting. She has not had a COVID expsoures. No chest pain. Allergies Allergy/AdvReac Type Severity Reaction Status Date / Time Vgsbioy-Jwq-Uex Reductase Allergy Unknown Verified 03/29/20 02:21 Inhibitor Home Medications Medication Instructions Recorded Confirmed Type cholecalciferol (vitamin D3) 1,000 unit PO QAM 08/21/18 03/29/20 History [Vitamin D3] [place]-3 Fish Oil 1 cap PO QAM 05/19/19 03/29/20 History cyanocobalamin (vitamin B-12) 1,000 mcg PO QAM 05/19/19 03/29/20 History blood sugar diagnostic #50 ea 05/28/19 03/28/20 Rx metformin 500 mg tablet 500 mg PO BID #180 tab 07/11/19 03/29/20 Rx lancets 33 gauge #100 ea 08/10/19 03/28/20 Rx Flutter Valve #1 ea 08/28/19 03/28/20 Rx risedronate 35 mg tablet 35 mg PO WK #4 tab 09/26/19 03/29/20 Rx niacin 500 mg tablet,extended 500 mg PO BID #180 tab 11/12/19 03/29/20 Rx release 24 hr albuterol sulfate 90 mcg/actuation 2 puff INH Q6H PRN #18 gm 12/14/19 03/29/20 Rx aerosol inhaler ipratropium 0.5 mg-albuterol 3 mg 3 ml INH Q8H PRN #180 ml 12/14/19 03/29/20 Rx (2.5 mg base)/3 mL nebulization soln multivitamin 1 tab PO QAM 03/12/20 03/29/20 History warfarin 1 mg tablet See Rx Instructions PO DAILY tab 03/12/20 03/29/20 History Trelegy Ellipta 1 inh INHALATION QAM 03/22/20 03/29/20 History magnesium oxide 250 mg PO QAM 03/22/20 03/29/20 History diltiazem HCl 420 mg PO DAILY #30 cap 03/27/20 03/29/20 Rx prednisone 20 mg PO DAILY 3 Days #3 tab 03/27/20 03/29/20 Rx Past Med/Surg History Medical History (Updated 03/28/20 @ 00:05 by Frank Newman) Acute and chronic respiratory failure with hypercapnia Anemia Chronic obstructive pulmonary disease COPD exacerbation Falls frequently Fatty liver Heart murmur HTN (hypertension) Hyperlipidemia Hypoxia Impaired fasting glucose Influenza vaccine needed Insomnia Internal hemorrhoids RAUL (mycobacterium avium-intracellulare) infection Osteopenia Other specified disorders of bone density and structure, other site Paroxysmal atrial fibrillation Pleural effusion on left PNA (pneumonia) (06/20/13) Pneumonia Pneumonia Respiratory distress (06/20/13) Respiratory failure Sepsis Shortness of breath Tubular adenoma of colon Type 2 diabetes mellitus Surgical History H/O colonoscopy (~04/30/15) History of ankle surgery Left ankle approx 2016 Family History Father Myocardial infarction Sister Aneurysm of abdominal aorta Cerebral aneurysm Emphysema lung Mother Emphysema lung Tobacco abuse Son Diabetes Denies family history of Ovarian cancer Prostate cancer Breast cancer Colorectal cancer Social History Smoking Status: Unknown if ever smoked Tobacco Type: Cigarettes Age Started Using Tobacco: 23; Age Quit Using Tobacco: 60; Cigarettes Per Day: has approx 40 pack year history; Second Hand Exposure: No; Preferred Language: Lao Communication Ability: Effective Visual Impairment: No Limitations Hearing Ability: Normal Core Winding Operator Required: No Beliefs That Will Affect Care: None marital status: Current Living Situation: Spouse current occupational status: retired 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 Other Information That Helps Us Care for You: No Feels Safe at Home: Yes Safety Concerns: Feels Safe At This Time Childhood Exposure to Second-Hand Smoke: Yes (Mother) Dental Care, Regularly: No Physical Activity Frequency: Does not Exercise Seatbelt Use: always Sunscreen Use: Yes Assistive Devices: Oxygen - Continuous Review of Systems Review of Systems: All systems reviewed & are unremarkable except as noted in HPI & below Constitutional: no fever and no chills Eyes: no blind spots and no diplopia Ear, Nose, Mouth, Throat: no nasal obstruction and no epistaxis Respiratory: + cough and + dyspnea Cardiovascular: no chest pain and no syncope Gastrointestinal: no abdominal pain, no nausea and no vomiting Genitourinary: no dysuria Musculoskeletal: no back pain and no neck pain Integumentary: no rash and no lesions Neurologic: no numbness and no syncope Endocrine: no polydipsia and no polyphagia Physical Exam Constitutional: + frail appearing and comfortable; no acute distress and not ill appearing Eyes: PERRL, conjunctivae normal, anicteric sclerae Neck: trachea midline, no thyromegaly Respiratory: normal respiratory effort; no respiratory distress and not tachypneic Auscultation: + diminished lung sounds Cardiovascular: Rate/Rhythm: + tachycardic and + irregularly irregular Gastrointestinal (Abdomen): Inspection/Auscultation: abdomen not distended Percussion/Palpation: abdomen soft; abdomen nontender, no guarding and abdomen not rigid Musculoskeletal: Head/Neck/Chest: normocephalic and head atraumatic Skin: no rashes, warm and dry Neurologic: moves all extremities Psychiatric: Orientation: oriented to person sleepy, arouses to voice, does not know why she was brought here to hospital Results & Data Results & Data ([facility]) Vital Signs (Past 12 Hours) Vital Signs Temp Pulse Pulse Resp BP BP Pulse Ox 03/29/20 03:31 112 H 18 130/75 100 03/29/20 02:01 113 H 20 153/79 H 94 03/29/20 01:09 110 H 26 H 100 03/29/20 00:59 108 H 18 135/75 98 03/29/20 00:18 37.1 C 115 H 42 H 148/67 H 56 L Code Status & VTE Plan Code Status DNR/DNI VTE Prophylaxis Plan VTE Prophylaxis will be ordered: Yes Supervising Physician Co-Signing Physician Notes Attending addendum: I have physically seen this patient, have supervised the medical residents activities, and agree with the H&P unless as otherwise noted. Assessment and Plan: Acute on chronic respiratory failure/noncompliance with therapy, particularly use of home BiPAP- Recently admitted to [facility] from 03/22-03/27 with improved chest x-ray, which has worsened today from discharge. Duonebs every 4 hours while awake and every 2 hours when necessary. Methylprednisolone 30 mg IV every 12 hours Continue fluticasone and Umeclidinium/Vilanterol BiPAP at bedtime No need for antibiotics at this time Patient lives with her at home, the either need to get some additional help at home, or consider moving to assisted living. Remaining orders and notations as noted Resident Activity Tracking Resident Involvement: Resident Care Provided Care Provided: Adult Hospital Medicine (1) Acute and chronic respiratory failure Respiratory failure complication: hypercapnia Qualified Code(s): J96.22 - Acute and chronic respiratory failure with hypercapnia (2) Diabetes type 2, controlled Diabetes mellitus complication status: without complication Diabetes mellitus lobsterman insulin use: without senior living 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
[2020-03-29] MEDS ORDERED: ALBUT/IPRATROP 3MG/0.5MG NEB 3 ML VIAL INH PRN (04:53)
[2020-03-29] MEDS ORDERED: ONDANSETRON INJ 2 MG/ML 2 ML VIAL IV PRN (04:53)
[2020-03-29] MEDS ORDERED: POLYETHYLENE (MIRALAX) 17 GM PACK PO PRN (04:53)
[2020-03-29] MEDS ORDERED: PATIENT'S HEIGHT AND/OR WEIGHT NEEDED SCH (05:15)
[2020-03-29] MEDS ORDERED: PHARMACY GLYCEMIC MGMT CONSULT PRN (06:48)
[2020-03-29] MEDS ORDERED: GLUCOSE 10 TABS/TUBE PO PRN (07:00)
[2020-03-29] MEDS ORDERED: DEXTROSE 50% 50 ML SYRINGE IV PRN (07:00)
[2020-03-29] MEDS ORDERED: GLUCOSE 40% GEL 15 GM TUBE PO PRN (07:00)
[2020-03-29] MEDS ORDERED: GLUCAGON FOR INJ 1 MG VIAL SQ PRN (07:00)
[2020-03-29] MEDS ORDERED: CARBOHYDRATES FOR HYPOGLYCEMIA PO PRN (07:00)
[2020-03-29] MEDS: FLUTICASONE FUROATE 100MCG 14 PUFFS/INHALER INH SCH (08:23)
[2020-03-29] MEDS: dilTIAZem HCL 180 MG CAPCR PO SCH (08:23)
[2020-03-29] MEDS: UMECLIDINIUM/VILANTEROL 62.5/25MCG 7 PUFFS/INHALER INH SCH (08:23)
[2020-03-29] MEDS: INSULIN ASPART 100 UNITS/ML 3 ML PEN SC SCH ×4 (08:24→20:41)
[2020-03-29] MEDS: dilTIAZem HCL 240 MG CAPCR PO SCH (08:24)
[2020-03-29] MEDS: FAMOTIDINE 20 MG TAB PO SCH (08:24)
[2020-03-29] MEDS: NIACIN EXTENDED REL 500 MG TABCR PO SCH ×2 (08:24→20:40)
--- NOTE | 2020-03-29 08:39 | XRay Report ---
XR chest 1V portable CLINICAL HISTORY: Dyspnea COMPARISON STUDY: 03/25/2020 FINDINGS: There is left-sided volume loss with cardiac shift to the left. The study is mildly rotated . There are small bilateral pleural effusions. The patient is hyperinflated. There is stable intersti tial thickening.[ IMPRESSION: No significant change from the prior study. Persistent emphysema, small bilateral pleural effusions, and interstitial thickening (pulmonary edema versus interstitial infectious/inflammatory process) ACT 112: Negative or not required by law. Electronically signed by: Roosevelt Mjeia M.D. 03/29/2020 8:38 AM
[2020-03-29] MEDS ORDERED: INSULIN GLARGINE SOLOSTAR 100 UNITS/ML 3 ML PEN SC ONE ×2 (10:15→11:30)
--- NOTE | 2020-03-29 11:12 | Electrocardiogram Report ---
Test Reason : Blood Pressure : / mmHG Vent. Rate : 107 BPM Atrial Rate : 107 BPM P-R Int : 132 ms QRS Dur : 076 ms QT Int : 310 ms P-R-T Axes : 086 072 053 degrees QTc Int : 413 ms Sinus tachycardia with occasional , and consecutive Premature ventricular complexes and Fusion comple xes and atrial ectopy Abnormal ECG When compared with ECG of 22-MAR-2020 18:19, Fusion complexes are now Present Confirmed by Baldo Champion ([id number]) on 03/29/2020 11:12:24 AM Referred By: REFERRED SELF Confirmed By:Roland Champion
--- NOTE | 2020-03-29 11:13 | Electrocardiogram Report ---
Test Reason : Blood Pressure : / mmHG Vent. Rate : 120 BPM Atrial Rate : 120 BPM P-R Int : 176 ms QRS Dur : 078 ms QT Int : 288 ms P-R-T Axes : 098 078 053 degrees QTc Int : 407 ms Sinus tachycardia with Premature atrial complexes , some consecutive Otherwise normal ECG When compared with ECG of 29-MAR-2020 00:49, (unconfirmed) Fusion complexes are no longer Present Premature ventricular complexes are no longer Present Premature atrial complexes are now Present Confirmed by Baldo Champion ([id number]) on 03/29/2020 11:12:46 AM Referred By: REFERRED SELF Confirmed By:Roland Champion
[2020-03-29] MEDS: methylPREDNISolone 30 MG in SYRINGE 0 ML IV SCH (11:54)
--- NOTE | 2020-03-29 14:51 | Pharmacy Report ---
Pharmacy Glycemic Short Note 2 - Date of Service March 29, 2020 - Glycemic Short BSG Results (Last 24 hours): 03/29/20 03/29/20 03/29/20 00:45 04:12 04:59 Glucose 402 H* POC Glucose 270 H 229 H 03/29/20 03/29/20 07:59 11:53 Glucose POC Glucose 130 H 189 H OUTPATIENT ANTIDIABETIC REGIMEN: * metformin 500 mg BID * A1c = 5.6% (10/12/19) ASSESSMENT: * Joyce is a 80 yo T2DM female admitted for acute on chronic respiratory failure. * She is know to the glycemic service from previous admissions. * Severe hyperglycemia on admission likely due to prednisone. Patient has been started on solu medrol 30 mg IV q12h. * Start Lantus per scale based on weight/stress 2-3. Basal insulin will require prompt dose decrease/discontinuation if/when steroids are tapered. * Will utilize Novolog CF/CR from previous admission (pt on prednisone 40 mg daily during that time) PLAN FOR INPATIENT GLYCEMIC CONTROL: * Hold outpatient oral diabetes medications * Basal insulin * Lantus 10-13 units SQ BID * 10 units for BSG less than 180 * 13 units for BSG 180 or more * Bolus insulin * NovoLog per scale ACHS or Q6hrs while NPO * Goal Range: Low 110 mg/dL - High 140 mg/dL * Correction Factor: 25 mg/dL/unit * Nutritional / Prandial insulin per carb ratio of 1 unit per 9 grams CHO consumed PLAN FOR DISCHARGE: * Plan will depend on if patient is discharged home on steroids
[2020-03-29] MEDS ORDERED: WARFARIN SOD 1 MG TAB PO SCH (16:00)
--- NOTE | 2020-03-29 20:12 | Billing Data ---
Date of Service March 29, 2020 Coding Level of Care Code 41977 OBS Care - Level 3
[2020-03-29] MEDS: INSULIN GLARGINE SOLOSTAR 100 UNITS/ML 3 ML PEN SC SCH (20:42)
[2020-03-30] MEDS ORDERED: INSULIN ASPART 100 UNITS/ML 3 ML PEN SC SCH
[2020-03-30] MEDS: methylPREDNISolone 30 MG in SYRINGE 0 ML IV SCH ×2 (00:13→12:02)
[2020-03-30] MEDS ORDERED: RISEDRONATE SODIUM 35 MG TAB PO SCH (06:00)
[2020-03-30 07:24] LABS: Hematocrit (blood only) 27.6 % (37-47); Hemoglobin 8.3 g/dL (12.0-16.0); Immature Granulocytes # (auto) 0.04 K/uL (0.00-0.02); Immature Granulocytes % (auto) 0.3 %; Lymphocytes # (auto) 0.64 K/uL (1.2-3.4); Lymphocytes % (auto) 5.5 %; Mean Corpuscular Hemoglobin 28.6 pg (25-34); Mean Corpuscular Hgb Conc 30.1 g/dL (32-36); Mean Corpuscular Volume 95.2 fL (80-100); Mean Platelet Volume 9.1 fL (7.4-10.4); Monocytes # (auto) 0.46 K/uL (0.11-0.59); Neutrophils # (auto) 10.41 K/uL (1.4-6.5); Neutrophils % (auto) 90.2 %; Platelet Count 278 K/uL (130-400); RDW Coefficient of Variation 14.6 % (11.5-14.5); RDW Standard Deviation 49.8 fL (36.4-46.3); White Blood Count 11.55 K/uL (4.8-10.8)
[2020-03-30 07:43] LABS: INR 2.1 (0.9-1.1); Prothrombin Time 21.3 Seconds (9.0-12.0)
[2020-03-30 07:57] LABS: Albumin Level 2.8 gm/dl (3.4-5.0); BUN Creatinine Ratio 37.4 (10-20); Calcium 9.3 mg/dl (8.5-10.1); Creatinine Clr Calc Pharmacy 30.5 ml/min; Est GFR (African American) 54.3; Est GFR (Non-African American) 46.9; Potassium 3.9 mmol/L (3.5-5.1)
[2020-03-30 08:00] LABS: Albumin Globulin Ratio 0.8 (0.9-2); Bilirubin,Total 0.6 mg/dl (0.2-1); Globulin 3.4 gm/dl (2.5-4.0); Total Protein 6.2 gm/dl (6.4-8.2)
[2020-03-30] MEDS: UMECLIDINIUM/VILANTEROL 62.5/25MCG 7 PUFFS/INHALER INH SCH (08:16)
[2020-03-30] MEDS: FLUTICASONE FUROATE 100MCG 14 PUFFS/INHALER INH SCH (08:16)
[2020-03-30] MEDS: dilTIAZem HCL 240 MG CAPCR PO SCH (08:17)
[2020-03-30] MEDS: NIACIN EXTENDED REL 500 MG TABCR PO SCH (08:17)
[2020-03-30] MEDS: INSULIN GLARGINE SOLOSTAR 100 UNITS/ML 3 ML PEN SC SCH (08:17)
[2020-03-30] MEDS: FAMOTIDINE 20 MG TAB PO SCH (08:17)
[2020-03-30] MEDS: dilTIAZem HCL 180 MG CAPCR PO SCH (08:17)
[2020-03-30] MEDS: INSULIN ASPART 100 UNITS/ML 3 ML PEN SC SCH ×2 (08:18→12:02)
--- NOTE | 2020-03-30 13:48 | Discharge Summary ---
Date of Service March 30, 2020 Admission HPI Per Admitting Provider Caveat: History Limited by - Patient is a vague historian. Joyce Mcclendon is an 80yo C female with history of COPD on home O2 4L, paroxysmal afib on warfarin, HTN, HLP, DM, recent hospitalization here 03/22-03/27, who pre sents with CC of shortness of breath. Onset was for about the past 2 days since discharge from hospital. She has had increased shortness of breath and also a non-productive cough. She has been non-compliant with home BiPAP. No fevers, chills, nausea, vomiting. She has not had a COVID expsoures. No chest pain. Principal Diagnosis COPD exacerbation, acute dyspnea Discharge Exam Constitutional WD/WN, vitals as above + frail appearing; no acute distress Neck trachea midline, no thyromegaly Respiratory normal respiratory effort; no respiratory distress, no labored breathing and no cough Auscultation: + diminished lung sounds and + wheezes (very faint, end exhalation, left upper lobe only) Cardiovascular Rate/Rhythm: regular rate and + irregularly irregular Heart Sounds: normal S1 and normal S2; no murmur Extremities: normal capillary refill; no edema Gastrointestinal (Abdomen) normal bowel sounds, soft, nontender, no hepatosplenomegaly Musculoskeletal no cyanosis or clubbing, extremities motor strength 5/5 Skin no rashes, warm and dry Neurologic patellar DTR's 2+ bilat, sensation intact and PERRL, EOMI, accommodation nl, no face palsy, no dysarthria Psychiatric A+Ox3, euthymic affect Lymphatic no cervical or axillary lymphadenopathy Discharge Data Allergies Allergy/AdvReac Type Severity Reaction Status Date / Time Vngppdd-[id number]-Jjp Reductase Allergy Unknown Verified 03/29/20 02:21 Inhibitor Consultations 03/29/20 02:52 ED Decision to Admit Stat Hospital Course (1) Acute and chronic respiratory failure: Joyce Mcclendon is an 80yo C female with history of COPD on home O2 4L, paroxysmal afib on warfarin, HTN, HLP, DM, recent hospitalization here 03/22-03/27, who presents with CC of shortness of breath. -there may be some issues with home NIMV, will ask [employer] to visit the house she has been stable here on baseline 4L, no distress, ambulating to restroom perhaps dropping her to Prednisone 20mg daily was too rapid a drop from last hospitalization treated with Solu Medrol 30mg q12 while here, will send home on Pred 40 x 3, 20 x 3 and 10 x 4 continue home inhalers follow up with PCP and pulmonology - No signs of infectious process. (2) Paroxysmal atrial fibrillation: elevated rate most likely exacerbated by compensation for resp failure, albuterol, prednisone. Unsure of compliance with Diltiazem at home. C/w home dose of Diltiazem 420mg PO daily. rates well controlled while here (3) Anticoagulated on warfarin: c/w home Warfarin dosage therapeutic on presentation 2.3 and today it is 2.1 follow INR as outpatient (4) Diabetes type 2, controlled: significantly elevated glucose in ED of 400 in setting of steroid use. Pharmacy consult order placed for appropriate control sugars better with insulin for discharge, pharmacy recommends using NPH insulin in the morning with Prednisone dose 25 units for 40mg of Pred 12 units for 20mg of Pred 6 units for 10mg of Pred (5) YIMI (obstructive sleep apnea): possible non-compliance, she uses home noninvasive ventilator - NIMV settings should be AVAPS-AE; Breath rate: auto; Inspiratory time:auto; Sigh: off; Tidal Volume: 350-450, PS min: 4-10 PS max: 12-20; EPAP min: 6-10; EPAP max: 10-16; AVAPS rate: 14 during sleep and as needed using BIPAP here in the hospital, no issues, breathing well will ask CM to reach out to [email or web address] to make a home visit to make sure device is working properly (6) Chronic respiratory failure with hypoxia and hypercapnia: (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 Total Time Total Time Spent Total Time Spent (In Minutes): 31 min Total Time Includes: Examination of the Patient, Discharge Planning, Medication Reconciliation, Communication With Other Providers (pharmacy) and Other (discussed with her over the phone) Discharge Plan Discharge Items Patient Disposition: Home - Self-Care Reason For Visit: DYSPNEA Discharge Diagnosis: COPD exacerbation Hyperglycemia Activity: Resume your previous activity Non-emergency contact: Primary Care Provider Call non-emergency contact if: you have any medication questions and your symptoms worsen Follow-up/Referrals: Matias Ram III, MD [Primary Care Provider] - Diet: Carb Consistent or DM2 Addtl Attending Provider Instructions: Medications: - PREDNISONE: 40mg daily x 3 days, 20mg daily x 3 days, 10mg daily x 4 days then stop - NPH insulin: administer this AT THE SAME TIME as Prednisone each day, this is intended to prevent the hyperglycemia effect of the Prednisone Acute dyspnea, no evidence of acute hypoxia here in the hospital, stable on 4L NC and BIPAP at night lungs have faint wheezing but overall airways are not tight, no bronchospasm noted corrections caseworker will contact the DME supplier to see if they can visit at home and make sure the mask is on correctly I will send you on Prednisone taper, see above Diabetes with elevated blood sugars continue Metformin at home, try to eat low carbohydrate diet, no sweets while on Prednisone will use insulin at home, only need it while on the Prednisone recommend you check sugars three times a day NPH insulin instructions Prednisone 40 mg: NPH 25 units SQ daily administered with prednisone Prednisone 20 mg: NPH 12 units SQ daily administered with prednisone Prednisone 10 mg: NPH 6 units SQ daily administered with prednisone Pending Studies at Discharge: No Stand-Alone Forms: My [facility] [employer], Smoking Cessation Medications and DC Order Prescriptions: New prednisone 20 mg tablet 20 mg PO UD Qty: 11 RF: 0 insulin NPH isoph U-100 human 100 unit/mL (3 mL) insulin pen 25 unit subcut UD 10 Days Qty: 2.5 RF: 1 Continued warfarin 1 mg tablet See Rx Instructions PO DAILY RF: 0 multivitamin Tablet 1 tab PO QAM RF: 0 metformin 500 mg tablet 500 mg PO BID Qty: 180 RF: 3 (DME) lancets [OneTouch Delica Lancets] 33 gauge misc See Rx Instructions .ROUTE .MEDSUPPLY Qty: 100 RF: 5 risedronate 35 mg tablet 35 mg PO WK Qty: 4 RF: 11 niacin 500 mg tablet extended release 24 hr 500 mg PO BID Qty: 180 RF: 3 (DME) OneTouch Verio test strips Strip See Rx Instructions .ROUTE .MEDSUPPLY Qty: 50 RF: 5 (DME) Flutter Valve Device See Rx Instructions .ROUTE .MEDSUPPLY Qty: 1 RF: 0 albuterol sulfate 90 mcg/actuation HFA aerosol inhaler 2 puff INH Q6H PRN (Reason: Shortness Of Breath Or Wheezing) Qty: 18 RF: 2 ipratropium-albuterol 0.5 mg-3 mg(2.5 mg base)/3 mL solution for nebulization 3 ml INH Q8H PRN (Reason: shortness of breath or wheezing) Qty: 180 RF: 3 [place]-3 Fish Oil 300-1,000 mg Capsule 1 cap PO QAM RF: 0 cyanocobalamin (vitamin B-12) 1,000 mcg Capsule 1,000 mcg PO QAM RF: 0 cholecalciferol (vitamin D3) [Vitamin D3] 1,000 unit Tablet 1,000 unit PO QAM RF: 0 magnesium oxide 250 mg magnesium tablet 250 mg PO QAM RF: 0 Trelegy Ellipta 100-62.5-25 mcg blister with device 1 inh inhalation QAM RF: 0 diltiazem HCl 420 mg capsule,extended release 24 hr 420 mg PO DAILY Qty: 30 RF: 3 Discontinued prednisone 20 mg tablet 20 mg PO DAILY 3 Days Qty: 3 RF: 0 Discharge Orders: Discharge Order (Routine); Ordered 03/30/20 Ordered By: Milo Lopez Admission Data Admit Date/Time: 03/29/20 03:47 Attending Provider: Milo Lopez Admit Provider: Zbigniew Vences Primary Care Provider: Matias Ram III Other Providers: Campos Contreras Other Interventions: Discharge Summary Assessment (RN) Last Done: 03/30/20 14:25 Coding Level of Care Code D/C Day Management >30 mins Diagnoses Acute and chronic respiratory failure J96.22 Respiratory failure complication: hypercapnia Paroxysmal atrial fibrillation I48.0 Anticoagulated on warfarin Z79.01 Diabetes type 2, controlled E11.9 Diabetes mellitus complication status: without complication 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
--- NOTE | 2020-03-30 13:53 | Pharmacy Report ---
Pharmacy Glycemic Short Note 2 - Date of Service March 30, 2020 - Glycemic Short BSG Results (Last 24 hours): 03/29/20 03/29/20 03/29/20 16:27 16:30 20:26 Glucose POC Glucose 338 H* 296 H 268 H 03/30/20 03/30/20 03/30/20 00:04 07:07 07:38 Glucose 185 H POC Glucose 203 H 209 H 03/30/20 11:22 Glucose POC Glucose 135 H OUTPATIENT ANTIDIABETIC REGIMEN: * metformin 500 mg BID * A1c = 5.6% (10/12/19) ASSESSMENT: 03/30: * Joyce received a total of 57 units of insulin yesterday (23 units basal and 34 units bolus). * Fasting BSG elevated at 209 mg/dL. Expect improvement with continued dosing of basal insulin. * Post prandial BSGs improving. Will slightly tighten Novolog parameters. She remains on solu medrol 30 mg IV q12h. 03/29: * Joyce is a 80 yo T2DM female admitted for acute on chronic respiratory failure. * She is know to the glycemic service from previous admissions. * Severe hyperglycemia on admission likely due to prednisone. Patient has been started on solu medrol 30 mg IV q12h. * Start Lantus per scale based on weight/stress 2-3. Basal insulin will require prompt dose decrease/discontinuation if/when steroids are tapered. * Will utilize Novolog CF/CR from previous admission (pt on prednisone 40 mg daily during that time) PLAN FOR INPATIENT GLYCEMIC CONTROL: * Hold outpatient oral diabetes medications * Basal insulin * Lantus 10-13 units SQ BID * 10 units for BSG less than 180 * 13 units for BSG 180 or more * Bolus insulin * NovoLog per scale ACHS or Q6hrs while NPO * Goal Range: Low 110 mg/dL - High 140 mg/dL * Correction Factor: 20 mg/dL/unit * Nutritional / Prandial insulin per carb ratio of 1 unit per 8 grams CHO consumed PLAN FOR DISCHARGE: * Last A1c of 5.6% from September 2019 indicates excellent glycemic control. It is reasonable to continue metformin as long as patient denies signs/symptoms of hypoglycemia at home. * Recommended starting once daily NPH while on prednisone: * Prednisone 40 mg: NPH 25 units SQ daily administered with prednisone * Prednisone 20 mg: NPH 12 units SQ daily administered with prednisone * Prednisone 10 mg: NPH 6 units SQ daily administered with prednisone
[2020-03-30] MEDS ORDERED: WARFARIN SOD 2 MG TAB PO SCH (16:00)
[2020-03-31 06:01] LABS: Estimated Average Glucose 126 mg/dl
== END 2020-03-30 14:57 | disposition home or self-care (01) | DRG 190 ==
LOC: ED 00:13 → 2N 03:47 → SUATTDRO 03:47 → 2N 04:17